=== PATIENT | female | born 1955 | race Caucasian/White ===

== ENCOUNTER 2018-01-04 07:50 | Emergency (ER) | payer OTHER, SELFPAY ==
[2018-01-04 07:53] VITALS: BP 149/98; PULSE 78; RESP 17; TEMP 37.1; O2SAT 97; BMI 31.7
--- NOTE | 2018-01-04 08:14 | EKG12_ITS ---
Test Reason : ABD PAIN Blood Pressure : / mmHG Vent. Rate : 061 BPM Atrial Rate : 061 BPM P-R Int : 154 ms QRS Dur : 142 ms QT Int : 438 ms P-R-T Axes : 044 -36 103 degrees QTc Int : 440 ms Normal sinus rhythm Left axis deviation Left bundle branch block Abnormal ECG Confirmed by CHRISTA GARCIA, AIRAM ([id number]), film or videotape editor NOEMY MANN ([id number]) on 01/05/2018 2:24:21 PM Referred By: TOM Confirmed By:AIRAM GOODWIN MD
--- NOTE | 2018-01-04 08:19 | NURSING ---
NO OLD EKGS
[2018-01-04 08:37] VITALS: BP 148/88; BP 149/96; BP 153/71; PULSE 62; PULSE 71; PULSE 72
[2018-01-04] MEDS: Ondansetron 4 MG/2 ML Vial IV (08:39)
[2018-01-04] MEDS: 0.9% Normal Saline 1,000 ML 1000 ML IV (08:39)
[2018-01-04 08:49] LABS: Absolute Lymphocyte Count 1.11 X10^3/ul (0.83-4.51); Basophil# 0.02 X10^3/uL; Basophil% 0.3 % (0-1); Eosinophil# 0.01 X10^3/uL; Eosinophils% 0.2 % (0-5); Hematocrit 42.1 % (37-47); Hemoglobin 14.5 g/dl (12.0-15.0); Lymphocyte # 1.11 X10^3/ul (4.0); Mean Corp Hgb Conc 34.4 g/gl (32-36); Mean Corpuscular Hgb 32.7 pg (27.0-32.0); Mean Corpuscular Volume 94.8 fL (81-99); Mean Platelet Vol. 10.5 fl (6.2-12.0); Monocyte# 0.42 X10^3/uL; Monocyte% 6.4 % (0-10); Neutrophil # 4.97 X10^3/uL (2.7-7.7); Neutrophil % 75.9 % (47-70); POSITIVE COUNT NO; POSITIVE DIFFERENTIAL NO; POSITIVE MORPHOLOGY NO; Platelet Count 96 K/mm3 (150-450); RBC Distribution Width CV 12.6 % (11.6-14.6); RBC Distribution Width SD 42.5 fl (35.1-43.9); Red Blood Count 4.44 M/mm3 (4.2-5.4); White Blood Count 6.5 K/mm3 (4.4-11.0)
[2018-01-04 09:13] LABS: AST(SGOT) 19 U/L (15-37); Alanine Aminotransfer ALT/SGPT 51 U/L (13-56); Albumin, Serum 3.7 g/dL (3.2-5.0); Alkaline Phosphatase 86 U/L (45-117); Anion Gap 9 (5-15); BUN 11 mg/dL (7-18); Calcium,Total 8.6 mg/dL (8.5-10.1); Chloride 108 mmol/L (98-107); Cholesterol 176 mg/dL (200); Creatinine, Serum 0.92 mg/dL (0.55-1.02); EST Glomerular Filtration Rate 65 mL/min (>60); Est Glom Filt Rate - Afr Amer 79 mL/min (>60); Estimated Creatinine Clearance 56.32 ml/min; Globulin 3.7 g/dL (2.2-4.2); Glucose 117 mg/dL (74-106); High Density Lipoprotein 51 mg/dL; Potassium 3.5 mmol/L (3.5-5.1); Protein, Total 7.4 g/dL (6.4-8.2); Sodium Level 142 mmol/L (136-145); Thyroid Stim Hormone (TSH) 0.64 uIU/mL (0.358-3.74); Triglycerides 65 mg/dL; Very Low Density Lipoprotein 13 mg/dL (5-40)
--- NOTE | 2018-01-04 09:22 | ED.DCSUM_ITS ---
- ER Visit Summary Date of Service: 01/04/18 Chief Complaint: Lightheaded and diarrhea History of Present Illness: The patient is a [address] herminia Muniz. She reports that she is lightheaded. This began at 3 AM. There is no change with standing. Patient reports she has had diarrhea 4-5 times a day since December 16. States it is orange in color. She denies any blood in her stools or black tarry stools. No sick contacts. Has not been camping or out of the country. She does drink well water, but others in the home due as well and they are not ill. No recent antibiotics. No possible bad food exposure. Patient reports that she has cramping, dull abdominal pain Zeta 10 at worst and 2 out of 10 currently. Is worsened by sleeping periods relieved by standing up. She has had nausea without vomiting. Finally she complains of headache that is 10 out of 10 severity and generalized weakness. Physical Examination: Vitals: Stable. Afebrile. General: Well-nourished and well-developed. Head: Normocephalic atraumatic. Neck: Supple, no lymphadenopathy. No JVD. Nontender. Cardiovascular: Regular rate and rhythm. No murmurs. Respiratory: No respiratory distress. Clear to auscultation bilaterally. Abdominal: Soft, mild epigastric tenderness to palpation, nondistended, normal bowel sounds. No guarding, rebound, or peritoneal signs. Back: Nontender. Extremities: Nontender, no edema. Skin: Normal color, no rash. Neurologic: Alert and oriented ?3. Cranial nerves II through XII are intact. Normal strength and sensation. Psych: Normal affect. Test Results: CBC is marked for platelets of 96, segmented neutrophils 76, lymphocytes of 17. Chem-7 is more for chloride of 108 and glucose 117. LFTs are normal. Lipase is normal. TSH is 0.64. EKG is sinus at 61 with left bundle branch block. There is no old EKG for comparison because of this a troponin was obtained and it is negative. Emergency Department Course and Treatment: Patient had negative orthostatic vital signs. She was given a liter of normal saline and Zofran. She is resting comfortably. She has had no diarrhea while here. Treatment Plan: The patient will be discharged with Zofran. Instructed to push fluids. Follow-up Dr. Miedel in 1-2 days if not improving. Return to the emergency department for any worsening symptoms. Disposition: To home in improved and stable condition. Impression: 1. Diarrhea. 2. Lightheadedness. 3. Left bundle branch block. This note was generated with [employer] dictation software. It may contain incorrect words, spelling, and punctuation that were not noted in review of the chart prior to signing ED Disposition - Plan for ED Patient: Chief Complaint: Abd Pain Instructions: ED Near Syncope Unkn, ED Vomiting Diarrhea Nonspecific Ad Prescriptions: Ondansetron [Zofran Odt] 4 mg PO Q8H PRN PRN #10 tablet PRN Reason: Nausea Ranitidine HCl [Zantac] 300 mg PO DAILY #30 tablet Referrals: Khushboo Dudley MD [Primary Care Provider] - 1-2 Days if not improving
[2018-01-04 09:31] LABS: Lipase 99 U/L (73-393)
[2018-01-04 09:51] VITALS: BP 153/76; PULSE 58; RESP 17; O2SAT 100
[2018-01-04 11:09] VITALS: BP 121/90; PULSE 80; RESP 16; O2SAT 99
== END 2018-01-04 11:11 | disposition home or self-care (01) ==
LOC: ED 08:39
PROVIDERS: Emergency Provider Emergency Medicine; Family Provider Family Medicine; PCP Family Medicine
DX: R42 Dizziness and giddiness (principal); I44.7 Left bundle-branch block, unspecified; K58.0 Irritable bowel syndrome with diarrhea; I10 Essential (primary) hypertension; E03.9 Hypothyroidism, unspecified; M79.7 Fibromyalgia; Z79.899 Other long term (current) drug therapy
CPT/HCPCS: 80053; 80061; 83690; 84443; 84484; 85025; 93005; 96361; 96374; 99285; J7030; A4216; J2405

== ENCOUNTER → 2018-01-10 14:12 | Outpatient (CLI) | payer OTHER, SELFPAY ==
--- NOTE | 2018-01-10 14:16 | CT_ITS ---
STUDY: CT ABDOMEN AND PELVIS WITH CONTRAST REASON FOR EXAM: Female, 62 years old. Abdominal pain and spasms. Prior history of cholecystectomy and DIONE/BSO. RADIATION DOSAGE (If Supplied By Facility): CTDIvol = ( 16.35 ) mGy, DLP = ( 1000.59 ) mGycm TECHNIQUE: Transaxial images were obtained from the dome of the diaphragm to the symphysis pubis with oral contrast. 100 ml of Isovue 300 contrast was administered. Sagittal and coronal images were reconstructed. Individualized dose optimization techniques were used for this CT. COMPARISON: None. FINDINGS: 8 x 5 mm noncalcified nodule of the right lower lobe, image 8 series 2. 2 mm nodule of the right middle lobe, image 8 series 2. Trace pericardial effusion. Normal liver. There are surgical clips in the gallbladder fossa consistent with a prior cholecystectomy. Normal spleen. Normal pancreas. Normal bilateral adrenal glands. Normal right kidney. Normal left kidney. Normal visualized stomach. Normal small intestine. Diverticulosis of the colon without evidence of acute diverticulitis. The appendix is visualized and appears normal. Minimal calcified plaque of the aorta. Normal inferior vena cava. Normal retroperitoneum. Normal urinary bladder. There is absence of the uterus consistent with a prior hysterectomy. Negative for pelvic mass or free fluid of the pelvis. Normal abdominal wall. Normal osseous structures. CT/Abdomen/Pelvis WITH Contrast IMPRESSION: No acute bowel related findings. Negative for bowel perforation, obstruction or inflammatory changes. Diverticulosis without evidence of acute diverticulitis. A normal appendix is identified. Normal size of the kidneys bilaterally without hydronephrosis, renal, ureteral or bladder stones. Unremarkable urinary bladder. Status post hysterectomy. Negative for pelvic mass or free fluid. Status post cholecystectomy. 8 x 5 mm noncalcified nodule of the right lower lobe and a 2 mm nodule of the right middle lobe. Recommended follow-up for nodules 8 to 6 mm in size is 6-12 months and 18-24 months in a low risk patient. 3-6 months, 9-12 months and 24 months in a high risk patient. Electronically Signed: Angelica Bernal MD at 15:51 EDT , Service support ,
== END ==
PROVIDERS: Family Provider Family Medicine; PCP Family Medicine; Visit Provider Family Medicine
DX: K58.0 Irritable bowel syndrome with diarrhea (principal); R10.9 Unspecified abdominal pain; G89.29 Other chronic pain
CPT/HCPCS: 74177; Q9967

== ENCOUNTER 2018-03-21 06:43 | Day surgery (SDC) | payer OTHER, SELFPAY ==
--- NOTE | 2018-03-21 | EGD_PTH ---
PATIENT: GUMARO CARRASQUILLO LOC: EN U#:[id number] AGE/SX: 63/F ROOM: RE03/21/[address]: Dr. Cristino Mcintyre MD : [id number] BED: DIS: 03/21/2018 SPEC #: [id number] RECD: 03/21/18 12:01 STATUS: SHINE AIDEN #: [id number] BLANKA: 03/21/18 00:[address]: Cristino Mcintyre DEPT: SURGICAL PATHOLOGY RECD BY: Jordan Howard ENTERED: 03/22/18 12:01 SP TYPE: EGD BIOPSY OT DR: Dr. Khushboo Dudley MD Tissues: Small intestine biopsy Procedures: Surgery Specimen Level IV HEADER OPERATION: EGD with biopsy PRE-OP DIAGNOSIS: Epigastric abdomen pain, nausea TISSUE SUBMITTED: Small bowel biopsy MICROSCOPIC DIAGNOSIS Small bowel, biopsy: Fragment of duodenal mucosa with mild nonspecific chronic inflammation and Lucrecia gland hyperplasia. SJ:mattie 03/24/18 MICROSCOPIC DESCRIPTION Slides are reviewed. GROSS DESCRIPTION Received in fixative is one container labeled with the patient's name and designated small bowel biopsy. The specimen consists of a fragment of hennessy soft tissue measuring 0.4 x 0.4 x 0.1 cm. The specimen is totally submitted in one cassette. / SULAIMAN:mattie 03/22/18 TC:5 CPT: 21337
--- NOTE | 2018-03-21 06:43 | DT_ITS ---
This patient was seen during an EMR downtime March 19, 2018 - March 26, 2018. This patient may have a combination of paper and electronic documentation or all paper documentation. All documentation is viewable within the e-chart portion of [employer] for each patient visit.
--- NOTE | 2018-03-21 11:52 | EKG12_ITS ---
Test Reason : POSTOP Blood Pressure : / mmHG Vent. Rate : 050 BPM Atrial Rate : 050 BPM P-R Int : 164 ms QRS Dur : 094 ms QT Int : 442 ms P-R-T Axes : 039 020 030 degrees QTc Int : [address] abnormality, possible digitalis effect Abnormal ECG When compared with ECG of 04-JAN-2018 08:26, Left bundle branch block is no longer Present Confirmed by CHRISTA GARCIA, AIRAM ([id number]), sound editor NOEMY MANN ([id number]) on 03/29/2018 4:38:05 PM Referred By: Cristino Mcintyre Confirmed By:AIRAM GOODWIN MD
== END 2018-03-21 09:10 | disposition home or self-care (01) ==
PROVIDERS: Family Provider Family Medicine; PCP Family Medicine; Visit Provider Surgery
PROC: 0DJ08ZZ Inspection of Upper Intestinal Tract, Via Natural or Artificial Opening Endoscopic (ICD-10-PCS; CPT 43235; principal; 2018-03-21 07:55)
DX: R10.13 Epigastric pain (principal); R11.0 Nausea; Z79.899 Other long term (current) drug therapy; I10 Essential (primary) hypertension; I44.7 Left bundle-branch block, unspecified; Z87.891 Personal history of nicotine dependence; G25.81 Restless legs syndrome; K58.9 Irritable bowel syndrome, unspecified; E07.9 Disorder of thyroid, unspecified; M79.7 Fibromyalgia; E03.9 Hypothyroidism, unspecified
CPT/HCPCS: 43239; 88305; 93005; J7120

== ENCOUNTER → 2018-05-18 09:27 | Outpatient (CLI) | payer OTHER, SELFPAY ==
[2018-05-18 12:17] LABS: Absolute Neutrophil Count 2.5 X10^3/uL (2.0-7.7); Basophil# 0.01 X10^3/uL; Basophil% 0.2 % (0-1); Eosinophil# 0.04 X10^3/uL; Eosinophils% 0.9 % (0-5); Hematocrit 39.6 % (37-47); Hemoglobin 12.9 g/dl (12.0-15.0); Mean Corp Hgb Conc 32.6 g/gl (32-36); Mean Corpuscular Hgb 31.8 pg (27.0-32.0); Mean Corpuscular Volume 97.5 fL (81-99); Mean Platelet Vol. 10.6 fl (6.2-12.0); Monocyte# 0.32 X10^3/uL; Monocyte% 7.5 % (0-10); Neutrophil # 2.47 X10^3/uL (2.7-7.7); Neutrophil % 58.4 % (47-70); Platelet Count 120 K/mm3 (150-450); RBC Distribution Width CV 12.7 % (11.6-14.6); RBC Distribution Width SD 45.7 fl (35.1-43.9); Red Blood Count 4.06 M/mm3 (4.2-5.4); White Blood Count 4.2 K/mm3 (4.4-11.0)
[2018-05-18 12:20] LABS: International Normalized Ratio 1.1; Prothrombin Time (Protime)PT. 13.8 SECONDS (11.7-14.9)
[2018-05-18 12:21] LABS: Partial Thromboplast Time 29.2 Seconds (24.1-36.2)
[2018-05-18 12:23] LABS: AST(SGOT) 19 U/L (15-37); Alanine Aminotransfer ALT/SGPT 25 U/L (13-56); Albumin, Serum 3.6 g/dL (3.2-5.0); Alkaline Phosphatase 81 U/L (45-117); Bilirubin, Direct 0.09 mg/dL (0.00-0.30); Globulin 3.9 g/dL (2.2-4.2); Protein, Total 7.5 g/dL (6.4-8.2)
[2018-05-18 12:24] LABS: POSITIVE COUNT NO; POSITIVE DIFFERENTIAL NO
[2018-05-18 12:25] LABS: Vitamin B12 346 pg/mL (211-911)
[2018-05-18 12:25] LABS: POSITIVE MORPHOLOGY NO
== END ==
PROVIDERS: Family Provider Family Medicine; PCP Family Medicine; Visit Provider Family Medicine
DX: R10.13 Epigastric pain (principal); T14.8XXA Other injury of unspecified body region, initial encounter
CPT/HCPCS: 36415; 80076; 82607; 85025; 85610; 85730

== ENCOUNTER → 2018-12-19 08:05 | Outpatient (CLI) | payer OTHER, SELFPAY ==
[2018-12-19 12:20] LABS: Absolute Lymphocyte Count 1.71 X10^3/ul (0.83-4.51); Absolute Neutrophil Count 3.4 X10^3/uL (2.0-7.7); Basophil# 0.02 X10^3/uL; Basophil% 0.3 % (0-1); Eosinophil# 0.09 X10^3/uL; Eosinophils% 1.6 % (0-5); Hematocrit 40.5 % (37-47); Hemoglobin 13.1 g/dl (12.0-15.0); Lymphocyte # 1.71 X10^3/ul (4.0); Lymphocyte % 29.5 % (19-41); Mean Corp Hgb Conc 32.3 g/gl (32-36); Mean Corpuscular Hgb 31.8 pg (27.0-32.0); Mean Corpuscular Volume 98.3 fL (81-99); Mean Platelet Vol. 10.8 fl (6.2-12.0); Monocyte% 10.4 % (0-10); Neutrophil # 3.37 X10^3/uL (2.7-7.7); Neutrophil % 58.2 % (47-70); Platelet Count 125 K/mm3 (150-450); RBC Distribution Width CV 13.1 % (11.6-14.6); RBC Distribution Width SD 47.1 fl (35.1-43.9); Red Blood Count 4.12 M/mm3 (4.2-5.4); White Blood Count 5.8 K/mm3 (4.4-11.0)
[2018-12-19 12:29] LABS: POSITIVE COUNT NO; POSITIVE DIFFERENTIAL NO; POSITIVE MORPHOLOGY NO
[2018-12-19 12:46] LABS: ALB/GLOB Ratio 0.9 RATIO (0.9-2.4); AST(SGOT) 19 U/L (15-37); Alanine Aminotransfer ALT/SGPT 23 U/L (13-56); Albumin, Serum 3.7 g/dL (3.2-5.0); Alkaline Phosphatase 78 U/L (45-117); Anion Gap 8 (5-15); BUN 16 mg/dL (7-18); Calcium,Total 8.4 mg/dL (8.5-10.1); Chloride 108 mmol/L (98-107); Cholesterol 179 mg/dL (200); Creatinine, Serum 0.84 mg/dL (0.55-1.02); EST Glomerular Filtration Rate 72 mL/min (>60); Est Glom Filt Rate - Afr Amer 88 mL/min (>60); Glucose 89 mg/dL (74-106); High Density Lipoprotein 63 mg/dL; Potassium 4.2 mmol/L (3.5-5.1); Protein, Total 7.7 g/dL (6.4-8.2); Sodium Level 144 mmol/L (136-145); Thyroid Stim Hormone (TSH) 1.86 uIU/mL (0.358-3.74); Triglycerides 46 mg/dL; Very Low Density Lipoprotein 9 mg/dL (5-40)
== END ==
PROVIDERS: Family Provider Family Medicine; PCP Family Medicine; Visit Provider Family Medicine
DX: I10 Essential (primary) hypertension (principal); K21.9 Gastro-esophageal reflux disease without esophagitis; E03.9 Hypothyroidism, unspecified; K58.0 Irritable bowel syndrome with diarrhea
CPT/HCPCS: 36415; 80053; 80061; 84443; 85025

== ENCOUNTER 2019-03-12 08:00 | Outpatient (RCR) | payer MEDICARE, OTHER, SELFPAY ==
--- NOTE | 2019-02-11 11:33 | HP.PTEVAL_ITS ---
Patient's Visit Information GUMARO CARRASQUILLO is a 64 year old F referred to Physical Therapy by Khushboo Dudley MD with a diagnosis of L RTC tendonopathy. Date of Evaluation: 02/11/19 Physical Therapist: Wade Nicholas DPT - Visit Plan Frequency: 2x /Week Duration: 4 Weeks Plan: Start with PROM progressing to AAROM as tolerated. Add in shoulder stability exercises and light RTC strengthening in pain free ranges. May add in US to reduce symptoms. - Subjective Findings: Pt. is here today for her initial evaluation with diagnosis of L RTC tendonopathy. Pt. reports no mechanism of injury, but has been bothering her for 5 weeks. Pt. reports having increased difficulty with sleeping, lifting her L arm. Pt. has a history of R RTC repair. Pt. denies N/T. She does have pain at anterior shoulder that goes down her L arm at times. Pt. - Pain L shoulder Pain Intensity (Out of 10): 2 Pain Intensity Range: 2, 8 - Objective POSTURE: Pt. has normal posture in sitting and standing. Pt. tends to keep her L arm in guarded posture. PALPATION: Pt. has increased tenderness at subacromial space at posterior aspect. Pt. has increased pain with palpation at supraspintus and infraspinatus muscle bellies. NEURO: Normal throuhgout. ROM: L shoulder- AROM- flexion 88deg, abd 68deg, functional IR PSIS. PT. has increas ed pain limited all of her motions with in this region. PROM- L shoujlder- flexion 130deg, abd 108deg, ER at side 36deg. Pt. had empty end feel with all movements limiting further motion. MMT: - Special Tests L Shoulder External Rotation Lag Test - RC Tear: Negative L Shoulder Supine Impingement Test - RC Tear: Negative L Shoulder Lift Off Test - Subscapular Tear: Positive L Shoulder Drop Sign - IS Test: Negative L Shoulder Empty Can - SS: Positive L Shoulder Belly Press - SupScap: Positive L Shoulder Neer - Impingement: Positive L Shoulder Camacho Pee - Impingement: Positive - Goals Goal 1:: Pt. to be I with HEP. Goal Time Frame: 4-6 Weeks Goal 2:: Pt. to have full AROM of L shoulder with 0-2/10 pain allowing for icnreased tolerance to all ADls. Goal Time Frame: 4-6 Weeks Goal 3:: Pt. to sleep throughout the night without increase in symptoms. Goal Time Frame: 4-6 Weeks Goal 4:: Pt. to have increased strength of L shoulder and scapular musculature by 1/2 grade. 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 Goal Time Frame: 4-6 Weeks - Rehabilitation Potential Physical Therapy Diagnosis: Pt. has signs and symptoms consistent with L RTC pathology. After testing her today, I feel she has a contractile issue of her RTC suggestive of a subscapularis tear. I would suggest some ROM and stability exercises in attempt to increase tolerance to ADLs and decrease symptoms in conservative fashion. Rehabilitation Potential: Fair - Anticipated Interventions Patient/Client Instruction: Educate patient on: Condition, Risk Factors, Benefits of Fitness Program For the Purpose of:: To foster healthy habits, To improve decision making, To facilitate caregiver knowledge, To improve self management, To prevent re- injury, To improve ability to perform tasks related to life management, To improve tolerance to ADL's Therapeutic Exercise to Include: Strength training, Power training, Body mechanics, Postural training, Flexibilty training, Passive ROM, Active ROM, Scapular Strength/Stabilization For the Purpose of:: To decrease pain, To increase ROM, To improve nutrient delivery to tissue, To increase oxygenation perfusion, To improve muscle performance and motor function, To improve ability to perform ADL's, To improve health of tissue, To decrease soft tissue restriction, To increase flexibility/ROM Manual Therapy Techniques to Include: Mobilization, Passive ROM, Functional dry needling, Soft tissue mobilization For the Purpose of:: To increase ROM, To improve nutrient delivery to tissue, To increase oxygenation perfusion Cryotherapy (ice pack, ice massage): Yes Thermo therapy (hot pack): Yes Ultrasound (thermal/non thermal): Yes For the Purpose of:: To decrease pain, To decrease swelling/inflammation, To increase ROM Thank you for the opportunity to evaluate your patient. For Medicare and Medicare HMO plans, please review the plan of care and approve it. It will need to be FAXED BACK to us at [phone] for Medicare purposes. For Medicare only, by signing this I certify the plan of care. Please let me know if there are questions or concerns regarding this plan of care. Physician Signature: Date:
--- NOTE | 2019-02-11 12:22 | HP.PTEVAL ---
Patient's Visit Information GUMARO CARRASQUILLO is a 64 year old F referred to Physical Therapy by Khushboo Dudley MD with a diagnosis of L RTC tendonopathy. Date of Evaluation: 02/11/19 Physical Therapist: Wade Nicholas DPT - Visit Plan Frequency: 2x /Week Duration: 4 Weeks Plan: Start with PROM progressing to AAROM as tolerated. Add in shoulder stability exercises and light RTC strengthening in pain free ranges. May add in US to reduce symptoms. - Subjective Findings: Pt. is here today for her initial evaluation with diagnosis of L RTC tendonopathy. Pt. reports no mechanism of injury, but has been bothering her for 5 weeks. Pt. reports having increased difficulty with sleeping, lifting her L arm. Pt. has a history of R RTC repair. Pt. denies N/T. She does have pain at anterior shoulder that goes down her L arm at times. Pt. - Pain L shoulder Pain Intensity (Out of 10): 2 Pain Intensity Range: 2, 8 - Objective POSTURE: Pt. has normal posture in sitting and standing. Pt. tends to keep her L arm in guarded posture. PALPATION: Pt. has increased tenderness at subacromial space at posterior aspect. Pt. has increased pain with palpation at supraspintus and infraspinatus muscle bellies. NEURO: Normal throuhgout. ROM: L shoulder- AROM- flexion 88deg, abd 68deg, functional IR PSIS. PT. has increased pain limited all of her motions with in this region. PROM- L shoujlder- flexion 130deg, abd 108deg, ER at side 36deg. Pt. had empty end feel with all movements limiting further motion. MMT: - Special Tests L Shoulder External Rotation Lag Test - RC Tear: Negative L Shoulder Supine Impingement Test - RC Tear: Negative L Shoulder Lift Off Test - Subscapular Tear: Positive L Shoulder Drop Sign - IS Test: Negative L Shoulder Empty Can - SS: Positive L Shoulder Belly Press - SupScap: Positive L Shoulder Neer - Impingement: Positive L Shoulder Camacho Pee - Impingement: Positive - Goals Goal 1:: Pt. to be I with HEP. Goal Time Frame: 4-6 Weeks Goal 2:: Pt. to have full AROM of L shoulder with 0-2/10 pain allowing for icnreased tolerance to all ADls. Goal Time Frame: 4-6 Weeks Goal 3:: Pt. to sleep throughout the night without increase in symptoms. Goal Time Frame: 4-6 Weeks Goal 4:: Pt. to have increased strength of L shoulder and scapular musculature by 1/2 grade. 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 Goal Time Frame: 4-6 Weeks - Rehabilitation Potential Physical Therapy Diagnosis: Pt. has signs and symptoms consistent with L RTC pathology. After testing her today, I feel she has a contractile issue of her RTC suggestive of a subscapularis tear. I would suggest some ROM and stability exercises in attempt to increase tolerance to ADLs and decrease symptoms in conservative fashion. Rehabilitation Potential: Fair - Anticipated Interventions Patient/Client Instruction: Educate patient on: Condition, Risk Factors, Benefits of Fitness Program For the Purpose of:: To foster healthy habits, To improve decision making, To facilitate caregiver knowledge, To improve self management, To prevent re-injury, To improve ability to perform tasks related to life management, To improve tolerance to ADL's Therapeutic Exercise to Include: Strength training, Power training, Body mechanics, Postural training, Flexibilty training, Passive ROM, Active ROM, Scapular Strength/Stabilization For the Purpose of:: To decrease pain, To increase ROM, To improve nutrient delivery to tissue, To increase oxygenation perfusion, To improve muscle performance and motor function, To improve ability to perform ADL's, To improve health of tissue, To decrease soft tissue restriction, To increase flexibility/ROM Manual Therapy Techniques to Include: Mobilization, Passive ROM, Functional dry needling, Soft tissue mobilization For the Purpose of:: To increase ROM, To improve nutrient delivery to tissue, To increase oxygenation perfusion Cryotherapy (ice pack, ice massage): Yes Thermo therapy (hot pack): Yes Ultrasound (thermal/non thermal): Yes For the Purpose of:: To decrease pain, To decrease swelling/inflammation, To increase ROM Thank you for the opportunity to evaluate your patient. For Medicare and Medicare HMO plans, please review the plan of care and approve it. It will need to be FAXED BACK to us at [phone] for Medicare purposes. For Medicare only, by signing this I certify the plan of care. Please let me know if there are questions or concerns regarding this plan of care. Physician Signature: Date:
--- NOTE | 2019-06-19 10:04 | HP.PTDCNRP_ITS ---
HP - Discharge Summary (1) - Patient Information GUMARO CARRASQUILLO was seen in my office for initial evaluation on 02/11/19. The following Plan of Care was established for this patient: Initial Frequency: 2x /Week Initial Duration: 4 Weeks - Anticipated Interventions Patient/Client Instruction: Educate patient on: Condition, Risk Factors, Benefits of Fitness Program For the Purpose of:: To foster healthy habits, To improve decision making, To facilitate caregiver knowledge, To improve self management, To prevent re- injury, To improve ability to perform tasks related to life management, To improve tolerance to ADL's Therapeutic Exercise to Include: Strength training, Power training, Body mechanics, Postural training, Flexibilty training, Passive ROM, Active ROM, Scapular Strength/Stabilization For the Purpose of:: To decrease pain, To increase ROM, To improve nutrient delivery to tissue, To increase oxygenation perfusion, To improve muscle performance and motor function, To improve ability to perform ADL's, To improve health of tissue, To decrease soft tissue restriction, To increase flexibility/ROM Manual Therapy Techniques to Include: Mobilization, Passive ROM, Functional dry needling, Soft tissue mobilization For the Purpose of:: To increase ROM, To improve nutrient delivery to tissue, To increase oxygenation perfusion Cryotherapy (ice pack, ice massage): Yes Thermo therapy (hot pack): Yes Ultrasound (thermal/non thermal): Yes For the Purpose of:: To decrease pain, To decrease swelling/inflammation, To increase ROM This patient was last seen in our office 03/12/19. Pertinent comments regarding their Physical therapy will appear below: Pt. was seen for her RTC pathology. Pt. presented with tear like symptoms, but desired to continue with ROM and isometric exercises. Pt. was to follow up with physican after her last visit. Pt has not been seen in several months and will be DC from PT at this point intime. At this point I will be discontinuing this patient from physical therapy. I would be happy to see this patient again in the future if found appropriate by the physician. Thank you! Wade Nicholas, BRIAN
== END 2019-03-12 19:00 | disposition home or self-care (01) ==
LOC: PT 08:00
PROVIDERS: Family Provider Family Medicine; PCP Family Medicine; Referring Provider Family Medicine; Visit Provider Family Medicine
DX: M75.102 Unspecified rotator cuff tear or rupture of left shoulder, not specified as traumatic (principal)
CPT/HCPCS: 97110; 97161

== ENCOUNTER → 2019-04-30 | Outpatient (CLI) | payer MEDICARE, OTHER, SELFPAY ==
[2019-04-30 16:04] LABS: Estradiol 11.8 pg/mL
[2019-05-02 11:47] LABS: Sex Hormone-binding Globulin 97.9 nmol/L (17.3-125.0)
[2019-05-06 14:52] LABS: Progesterone Level 0.07 ng/mL (See Comment)
== END | disposition home or self-care (01) ==
LOC: LABSPEC 14:01
PROVIDERS: Visit Provider Obstetrics & Gynecology
DX: N95.1 Menopausal and female climacteric states (principal); Z12.4 Encounter for screening for malignant neoplasm of cervix
CPT/HCPCS: 82670; 84144; 84270; 84403; 88175; G0145

== ENCOUNTER → 2019-06-05 | Outpatient (CLI) | payer MEDICARE, OTHER, SELFPAY ==
--- NOTE | 2019-06-05 09:40 | BI_ITS ---
MAMMOGRAPHY - BILATERAL SCREENING 3-D TOMOSYNTHESIS REASON FOR EXAM: Female, 64 years old. Bilateral Screening 3-D tomosynthesis PERTINENT HISTORY: No significant family history. TECHNIQUE: 2-D mammograms and 3-D Tomosynthesis of the breast (s) were performed. CAD was performed. COMPARISON: 06/17/2014 FINDINGS: The breast composition is composed of scattered fibroglandular density. Unremarkable benign-appearing fibroglandular tissue.. No dense spiculated masses or suspicious microcalcifications are identified. No architectural distortion is identified. There is no skin thickening or retraction. There has been no significant change since the prior study. BI/SCREEN MAMM (CAD) W/BILLY BILAT IMPRESSION: No mammographic signs of malignancy. Routine yearly mammograms recommended. ASSESSMENT CATEGORY: BIRADS Category 1: Negative. A letter regarding these results will be sent to the patient by the facility within 30 days. FOLLOW UP RECOMMENDATION: Yearly follow up mammogram recommended. (A) Approximately 10% of breast cancers are not detected by mammography. A normal mammogram should not delay biopsy of a clinically suspicious abnormality. Electronically Signed: Chilo Negron MD at 16:10 EDT Tel [phone], Service support ,
--- NOTE | 2019-06-05 09:44 | BD_ITS ---
STUDY: DUAL ENERGY X-RAY ABSORPTIOMETRY / DXA REASON FOR EXAM: Female, 64 years old. The patient is postmenopausal. Loss of height. TECHNIQUE: Bone Mineral Density (BMD) measurements of lumbar spine and bilateral hips were obtained. COMPARISON: None. FINDINGS: Lumbar Spine (L1-L4): g/cm2 (1.260) / T-score (0.8) / Z-score (2.4) Findings are suggestive of normal bone density with a low fracture risk. Left Femur Total: g/cm2 (0.977) / T-score (-0.2) / Z-score (1.0) Left Femoral Neck: g/cm2 (0.899) / T-score (-1.0) / Z-score (0.5) Right Femur Total: g/cm2 (0.985) / T-score (-0.2) / Z-score (1.0) Right Femoral Neck: g/cm2 (0.967) / T-score (-0.5) / Z-score (1.0) BD/Dexa Bone Density Study IMPRESSION: The patient is considered normal as outlined below according to World [place] Organization (WHO) criteria with a low fracture risk. Reference Information: The T-score is the number of standard deviations above or below the standard which is normal for young adults at their peak bone mineral density. The World Health Organization (WHO) interprets the T-scores as follows: Above -1 Normal bone density Between -1 and -2.5 Osteopenia Equal to / or below -2.5 Osteoporosis As a practical clinical guideline, osteopenia may be graded as follows: Mild -1 through -1.5 Moderate -1.6 through -2.0 Severe -2.1 through -2.4 The Z-score is the number of standard deviations above or below age-matched controls. A Z-score of less than -1.5 would be considered abnormal. References: 1. NIH Osteoporosis and Related Bone Diseases http://www.osteo.org 2. International Society for Clinical Densitometry http://www.iscd.org 3. National Osteoporosis Foundation http://www.nof.org Electronically Signed: Armin Kelly, at 10:06 EDT , Service support ,
== END | disposition home or self-care (01) ==
LOC: OPBD 09:38
PROVIDERS: Family Provider Family Medicine; PCP Family Medicine; Referring Provider Obstetrics & Gynecology; Visit Provider Obstetrics & Gynecology
DX: Z78.0 Asymptomatic menopausal state (principal); Z12.31 Encounter for screening mammogram for malignant neoplasm of breast; N95.1 Menopausal and female climacteric states
CPT/HCPCS: 77063; 77067; 77080

== ENCOUNTER → 2019-07-08 | Outpatient (CLI) | payer MEDICARE, OTHER, SELFPAY ==
[2019-07-11 14:58] LABS: HPV APTIMA, High Risk Negative (Negative)
== END | disposition home or self-care (01) ==
LOC: LABSPEC 15:15
PROVIDERS: Visit Provider Obstetrics & Gynecology
DX: Z12.4 Encounter for screening for malignant neoplasm of cervix (principal)
CPT/HCPCS: 87624; 88175; G0145

== ENCOUNTER → 2019-11-19 | Outpatient (CLI) | payer MEDICARE, OTHER, SELFPAY ==
[2019-11-19 12:51] LABS: Absolute Lymphocyte Count 1.56 X10^3/uL (0.83-4.51); Absolute Neutrophil Count 2.7 X10^3/uL (2.0-7.7); Basophil# 0.02 X10^3/uL; Basophil% 0.4 % (0-1); Eosinophil# 0.08 X10^3/uL; Eosinophils% 1.6 % (0-5); Hematocrit 41.1 % (37-47); Hemoglobin 13.3 g/dL (12.0-15.0); Lymphocyte # 1.56 X10^3/ul (4.0); Lymphocyte % 31.8 % (19-41); Mean Corp Hgb Conc 32.4 g/dL (32-36); Mean Corpuscular Hgb 31.8 pg (27.0-32.0); Mean Corpuscular Volume 98.3 fL (81-99); Mean Platelet Vol. 10.2 fl (6.2-12.0); Monocyte# 0.49 X10^3/uL; NRBC Flagged by Analyzer 0 % (0-5); Neutrophil # 2.74 X10^3/uL (2.7-7.7); Platelet Count 123 K/mm3 (150-450); RBC Distribution Width CV 12.6 % (11.6-14.6); RBC Distribution Width SD 45.1 fl (35.1-43.9); Red Blood Count 4.18 M/mm3 (4.2-5.4); White Blood Count 4.9 K/mm3 (4.4-11.0)
[2019-11-19 13:09] LABS: ALB/GLOB Ratio 0.8 RATIO (0.9-2.4); AST(SGOT) 16 U/L (15-37); Alanine Aminotransfer ALT/SGPT 23 U/L (13-56); Albumin, Serum 3.4 g/dL (3.2-5.0); Alkaline Phosphatase 76 U/L (45-117); Anion Gap 5 (5-15); BUN 14 mg/dL (7-18); BUN/Creat Ratio 14.7 RATIO (10-20); Calcium,Total 8.8 mg/dL (8.5-10.1); Chloride 110 mmol/L (98-107); Cholesterol 180 mg/dL (200); Creatinine, Serum 0.95 mg/dL (0.55-1.02); EST Glomerular Filtration Rate 63 mL/min (>60); Est Glom Filt Rate - Afr Amer 76 mL/min (>60); Globulin 4.2 g/dL (2.2-4.2); Glucose 89 mg/dL (74-106); High Density Lipoprotein 62 mg/dL; Potassium 4.1 mmol/L (3.5-5.1); Protein, Total 7.6 g/dL (6.4-8.2); Sodium Level 143 mmol/L (136-145); Triglycerides 38 mg/dL; Very Low Density Lipoprotein 8 mg/dL (5-40)
== END | disposition home or self-care (01) ==
LOC: BFHLAB 08:08
PROVIDERS: PCP Family Medicine; Visit Provider Family Medicine
DX: I10 Essential (primary) hypertension (principal); E03.9 Hypothyroidism, unspecified
CPT/HCPCS: 36415; 80053; 80061; 84443; 85025

== ENCOUNTER → 2020-12-29 11:45 | Outpatient (CLI) | payer MEDICARE, OTHER, SELFPAY ==
[2020-12-29 15:30] LABS: Absolute Lymphocyte Count 1.43 X10^3/uL (0.83-4.51); Absolute Neutrophil Count 3.7 X10^3/uL (2.0-7.7); Basophil# 0.03 X10^3/uL; Basophil% 0.5 % (0-1); Eosinophil# 0.08 X10^3/uL; Eosinophils% 1.4 % (0-5); Hematocrit 39.9 % (37-47); Hemoglobin 13.1 g/dL (12.0-15.0); Lymphocyte # 1.43 X10^3/ul (4.0); Lymphocyte % 24.5 % (19-41); Mean Corp Hgb Conc 32.8 g/dL (32-36); Mean Corpuscular Hgb 31.5 pg (27.0-32.0); Mean Corpuscular Volume 95.9 fL (81-99); Mean Platelet Vol. 10.3 fl (6.2-12.0); Monocyte# 0.54 X10^3/uL; Monocyte% 9.3 % (0-10); NRBC Flagged by Analyzer 0 % (0-5); Neutrophil # 3.73 X10^3/uL (2.7-7.7); Platelet Count 140 K/mm3 (150-450); RBC Distribution Width CV 12.5 % (11.6-14.6); RBC Distribution Width SD 44.2 fl (35.1-43.9); Red Blood Count 4.16 M/mm3 (4.2-5.4); White Blood Count 5.8 K/mm3 (4.4-11.0)
[2020-12-29 16:05] LABS: ALB/GLOB Ratio 0.8 RATIO (0.9-2.4); AST(SGOT) 19 U/L (15-37); Alanine Aminotransfer ALT/SGPT 23 U/L (13-56); Albumin, Serum 3.4 g/dL (3.2-5.0); Alkaline Phosphatase 85 U/L (45-117); Anion Gap 4 (5-15); BUN 15 mg/dL (7-18); BUN/Creat Ratio 17.3 RATIO (10-20); Calcium,Total 8.7 mg/dL (8.5-10.1); Chloride 107 mmol/L (98-107); Creatinine, Serum 0.87 mg/dL (0.55-1.02); EST Glomerular Filtration Rate 69 mL/min (>60); Est Glom Filt Rate - Afr Amer 84 mL/min (>60); Globulin 4.1 g/dL (2.2-4.2); Glucose 98 mg/dL (74-106); Potassium 3.9 mmol/L (3.5-5.1); Protein, Total 7.5 g/dL (6.4-8.2); Sodium Level 140 mmol/L (136-145); Thyroid Stim Hormone (TSH) 1.14 uIU/mL (0.358-3.74)
== END ==
PROVIDERS: PCP Family Medicine; Referring Provider Family Medicine; Visit Provider Family Medicine
DX: I10 Essential (primary) hypertension (principal); E03.9 Hypothyroidism, unspecified
CPT/HCPCS: 36415; 80053; 84443; 85025

== ENCOUNTER → 2021-06-28 12:07 | Outpatient (CLI) | payer MEDICARE, OTHER, SELFPAY ==
--- NOTE | 2021-06-28 12:11 | BI_ITS ---
MAMMOGRAPHY - BILATERAL SCREENING REASON FOR EXAM: Female, 66 years old. Routine annual screening examination. PERTINENT HISTORY: Non-contributory. TECHNIQUE: Digital bilateral breast billy (3D mammographic acquisition) in the CC and MLO projections. 2-D mediolateral oblique (MLO) and craniocaudad (CC) views of both breasts were obtained. CAD: Full Field Digital Mammography with Computer Added Detection was performed. COMPARISON: Comparison is made with prior study 06/05/2019 and 06/17/2014. FINDINGS: Breast Composition: There are scattered areas of fibroglandular density. There are no dominant masses or suspicious calcifications. Stable benign-appearing bilateral axillary. No other significant abnormalities are identified. There has been no significant change since the prior study. BI/SCRN MAMM (CAD)W/BILLY BILAT IMPRESSION: Stable bilateral screening mammogram. Yearly follow-up mammogram recommended. (A) ASSESSMENT CATEGORY: BIRADS Category 2: Benign. A letter regarding these results will be sent to the patient by the facility within 30 days. Approximately 10% of breast cancers are not detected by mammography. A normal mammogram should not delay biopsy of a clinically suspicious abnormality. [id number] Electronically Signed: Armin Kelly MD at 13:08 EDT , Service support ,
== END ==
PROVIDERS: PCP Family Medicine; Referring Provider Family Medicine; Visit Provider Family Medicine
DX: Z12.31 Encounter for screening mammogram for malignant neoplasm of breast (principal)
CPT/HCPCS: 77063; 77067

== ENCOUNTER 2021-08-09 10:31 | Observation (INO) | payer MEDICARE, OTHER, SELFPAY ==
--- NOTE | 2021-08-04 08:38 | EKG12_ITS ---
Test Reason : PREOP Blood Pressure : / mmHG Vent. Rate : 056 BPM Atrial Rate : 056 BPM P-R Int : 198 ms QRS Dur : 086 ms QT Int : 418 ms P-R-T Axes : 057 009 016 degrees QTc Int : 403 ms Sinus bradycardia Otherwise normal ECG Confirmed by CHRISTA GARCIA, AIRAM ([id number]), slot editor ANTHONY HADLEY ([id number]) on 08/05/2021 7:46:54 AM Referred By: Anabelle Shultz Confirmed By:AIRAM GOODWIN MD
[2021-08-04 09:24] LABS: Hematocrit 39.7 % (37-47); Mean Corp Hgb Conc 32.7 g/dL (32-36); Mean Corpuscular Volume 97.8 fL (81-99); Platelet Count 133 K/mm3 (150-450); RBC Distribution Width CV 12.5 % (11.6-14.6); Red Blood Count 4.06 M/mm3 (4.2-5.4); White Blood Count 5.2 K/mm3 (4.4-11.0)
[2021-08-04 09:59] LABS: Thyroid Stim Hormone (TSH) 1.32 uIU/mL (0.358-3.74)
[2021-08-09] VITALS (12 sets, daily range): BP systolic 132–161; BP diastolic 63–86; PULSE 53–68; RESP 16–18; TEMP 36.1–37.1; O2SAT 94–100; BMI 38.2
[2021-08-09] MEDS: Lactated Ringers 1,000 ML 100 ML IV (10:05)
--- NOTE | 2021-08-09 10:29 | OP.PCM_ITS ---
Problems Associated Problem List Diagnoses (1) Cystocele, midline: (2) Vaginal vault prolapse: Report of Operation Date of Procedure: 08/09/21 Pre-Operative Diagnosis: Cystocele, vaginal vault prolapse after hysterectomy Post-Operative Diagnosis: Same, rectocele, vulvar discoloration Surgery/Procedure Performed:: Anterior and posterior repair, bilateral sacrospinous ligament fixation with dermis, cystoscopy with bilateral ureteral catheterization, vulvar punch biopsy Surgeon: Anabelle Shultz Type of Anesthesia: General Specimen's removed: Vulvar biopsy Estimated Blood Loss (mL): 50 cc Description of Procedure: The patient is a 66-year-old female who has had pelvic organ prolapse for some time managed with pessary. She now presents for definitive surgical intervention. Informed consent was obtained. Anesthesia monitored the head, neck, airway, IV access and vital signs throughout the case. Once anesthesia was appropriate ministered the patient was placed into dorsal lithotomy and Trendelenburg position. She was prepped and draped in usual sterile fashion. A 16 Sammarinese Poe catheter was inserted in the bladder was drained. At this time it was determined that there is an apical posterior defect as well as the anterior cystocele defect. Permission was obtained from the patient's to repair this defect as well. The anterior vaginal wall was isolated and injected Submucosally with 1% lidocaine with epinephrine. A midline vertical incision was made approximately 1.5 cm in length. Sharp and blunt dissection was performed on either side until the ischial spines which were very blunted were palpated and freed from surrounding tissues. The Capio device was then used to pass an Ethibond suture through the sacrospinous ligament bilaterally. The suture was then brought through the dermis which was trimmed to size. The midline of the dermis was tacked using interrupted 2-0 Vicryl to the vaginal apex full-thickness vaginal mucosa. The Ethibond sutures were used then to tie the dermis into position and the suture was then brought through the vaginal mucosa at the apex bilaterally. The dermis was trimmed and attached to the white line bilaterally and to the bladder neck area and the midline. The vaginal mucosa was then closed over the repair using running interlocking 2-0 Vicryl. The Ethibond sutures were tied into position. Attention was then turned towards the posterior defect where the submucosa was once again injected with lidocaine with epinephrine, a midline incision was made, followed by sharp and blunt dissection on either side until the ischial spines were once again palpable. The Capio device was used to pass 2 Ethibond s utures through the sacrospinous ligaments through the dermis which was tacked into position laterally as well as in the midline using a 2-0 Vicryl interrupted suture. At this time the dermis was trimmed to length and tacked distally to the rectovaginal fascia as well as bilaterally. This was done using 2-0 Vicryl interrupted sutures. At this time the incision was closed using running interlocking 2-0 Vicryl and the Ethibond sutures were tied into position. This did slightly change the orientation of the mucosa on the posterior aspect of the vagina. The Poe catheter was removed and a cystourethroscopy was performed revealing no evidence of injury to the urinary bladder and no foreign body identified. The mucosa was normal. A 5 Sammarinese whistle-tip catheter was used to gently cannulate the right ureteral orifice with no difficulty and the catheter extended up to 20 cm before being removed. On the patient's left side there is mild J hooking of the ureter but there was easy passage of the whistle-tip once a 0.035 Glidewire was inserted alongside. At this time the cystoscope was removed and the Poe catheter was replaced draining the urinary bladder. The vagina was packed with estrogen cream and vaginal packing. Due to a discoloration of the area of the vulva near the apical aspect, a 3 mm punch biopsy was taken and sent for evaluation. Pressure was maintained for hemos tasis and bacitracin was applied to the area. The patient was then awakened and taken to the recovery room in good condition. There were no complications during this procedure. Grafts/Implants Used: Dermis Complications None Admit VTE Documentation VTE Present on Admission: Yes VTE Mechan Device Prophylaxis: SCD's VTE Pharm Prophylaxis ordered?: Yes
--- NOTE | 2021-08-09 10:36 | PCM.DC ---
Discharge Instructions Diet Discharge Diet: No restrictions Activity Discharge Activity: May Not Drive and May Shower May resume sexual activity in: 8 weeks Lifting Restrictions: 5 pounds Additional Activity Instructions:: No sexual activity, no exercise, no strenuous activity, no tub bathing, no swimming, no hot tubs Dressing / Incision Call your doctor if your incision/area has: Continuous Slow Oozing, Sudden Increased Bleeding, Increased Pain/ Swelling, Increased Redness, Foul Smelling Discharge and Swelling at the incision site Call your doctor if you observe: Fever of 101 or Higher, Inability to urinate, Inability to have a bowel movement and Uncontrolled pain Follow Up Care Please Follow Up With: Anabelle Shultz MD When: call for appt Test Results: Test results from this visit will be discussed in further detail at your follow-up appointment, if applicable. Discharge Plan Admission Attending Provider: Anabelle Shultz Primary Care Provider: Khushboo Dudley Discharge Orders/Prescriptions Prescriptions: New ondansetron HCl [ondansetron HCl] 8 MG tablet 8 mg PO Q8H PRN PRN (Reason: Nausea) 7 Days Qty: 20 RF: 0 oxycodone-acetaminophen [oxycodone-acetaminophen] 1 TABLET tablet 2 tab PO Q8H PRN PRN (Reason: Pain) 7 Days Qty: 20 RF: 0 sulfamethoxazole-trimethoprim [sulfamethoxazole-trimethoprim] 1 TABLET tablet 1 tab PO BID 3 Days Qty: 6 RF: 0 Continued levothyroxine 75 MCG tablet 75 mcg PO DAILY RF: 0 calcium carbonate 600 MG tablet 1,200 mg PO DAILY RF: 0 dicyclomine 20 MG tablet 20 mg PO 4X/DAY PRN (Reason: Irritable Bowel Syndrome) RF: 0 atenolol 50 MG tablet 50 mg PO BID RF: 0 L. gasseri-B. bifidum-B longum 1 EACH capsule 1 ea PO DAILY RF: 0 ondansetron 4 MG tablet 4 mg PO Q8H PRN PRN (Reason: Nausea) Qty: 10 RF: 0 lisinopril 10 mg Tablet 10 mg PO DAILY RF: 0 multivitamin Capsule 1 cap PO DAILY RF: 0 wheat dextrin 1 gram Tablet 1 g PO DAILY RF: 0 Referrals / Follow Up: Khushboo Dudley MD [Primary Care Provider] - Disposition Disposition (needs filled in before D/C Order can be placed): Home, Self Care
[2021-08-09 10:40] LABS: Anion Gap 7 (5-15); BUN 14 mg/dL (7-18); BUN/Creat Ratio 14.8 RATIO (10-20); Calcium,Total 8.9 mg/dL (8.5-10.1); Chloride 107 mmol/L (98-107); Creatinine, Serum 0.95 mg/dL (0.55-1.02); EST Glomerular Filtration Rate 62 mL/min (>60); Est Glom Filt Rate - Afr Amer 75 mL/min (>60); Estimated Creatinine Clearance 51.71 ml/min; Glucose 102 mg/dL (74-106); Potassium 3.9 mmol/L (3.5-5.1); Sodium Level 141 mmol/L (136-145)
[2021-08-09] MEDS: Ciprofloxacin 400 MG/200 ML BAG 200 MG IV (11:11)
--- NOTE | 2021-08-09 11:15 | VUL_PTH ---
PATIENT: GUMARO CARRASQUILLO LOC: MS2 U#:[id number] AGE/SX: 66/F ROOM: [id number] RE08/09/[address]: Dr. Anabelle Shultz MD : 1955 BED: 1 DIS: 08/10/2021 SPEC #: [id number] RECD: 08/09/21 14:18 STATUS: SHINE WOLFE #: [id number] BLANKA: 08/09/21 11:[address]: Anabelle Shultz DEPT: SURGICAL PATHOLOGY RECD BY: Joslyn Billings ENTERED: 08/10/21 09:08 SP TYPE: VULVA BX OTHR DR: Dr. Khushboo Dudley MD Tissues: Vulva, NOS Procedures: Surgery Specimen Level IV HEADER OPERATION: Anterior and posterior repair with dermis PRE-OP DIAGNOSIS: Vaginal vault prolapse TISSUE SUBMITTED: Vulvar punch biopsy MICROSCOPIC DIAGNOSIS Vulva, punch biopsy: Minimal chronic inflammation. No evidence of malignancy. AM:mattie 08/11/2021 MICROSCOPIC DESCRIPTION Slides are reviewed. GROSS DESCRIPTION Received in fixative is one container labeled with the patient's name and designated vulvar punch biopsy. The specimen consists of a punch biopsy of hennessy-white skin measuring 0.2 cm in diameter and 0.1 cm in length. The entire specimen is submitted in one cassette. / SJ:mattie 08/10/21 TC:3 CPT: 09876
[2021-08-09] MEDS: Lidocaine 1% /Epi 1:100 (20ml) 20 ML Vial (11:35)
--- NOTE | 2021-08-09 14:32 | SUR.PHASEII ---
Patient waiting for room.Phase 2 in PACU.
[2021-08-09] MEDS: Dextrose 5%-Lactated Ringers 1,000 ML 100 ML IV (18:58)
[2021-08-09] MEDS: Enoxaparin 40 MG/0.4 ML Syringe SC (18:59)
[2021-08-09] MEDS: Morphine 2 MG/ML Syringe IV (20:26)
[2021-08-09] MEDS: 0.9% Saline Lock 10 ML Syringe IV (20:26)
[2021-08-09] MEDS: Docusate Sodium 100 MG Capsule PO (22:18)
[2021-08-09] MEDS: Smz/Tmp Ds Tablet 1 TABLET PO (22:18)
[2021-08-09] MEDS: Atenolol 50 MG Tablet PO (22:18)
[2021-08-10 02:27] VITALS: BP 120/56; PULSE 52; RESP 16; TEMP 36.3; O2SAT 96
[2021-08-10] MEDS: Dextrose 5%-Lactated Ringers 1,000 ML 100 ML IV (04:08)
[2021-08-10] MEDS: HYDROcodone Bitartrate/Apap 5/325 Tablet PO (04:12)
[2021-08-10] MEDS: Levothyroxine 75 MCG Tablet PO (05:53)
[2021-08-10 08:14] VITALS: BP 119/59; PULSE 52; RESP 16; TEMP 36.4; O2SAT 97
--- NOTE | 2021-08-10 08:50 | NURSING ---
Deepika removed by Dr. Shultz today 0800.
[2021-08-10] MEDS: Lisinopril 10 MG Tablet PO (11:10)
[2021-08-10] MEDS: Smz/Tmp Ds Tablet 1 TABLET PO (11:11)
[2021-08-10] MEDS: Enoxaparin 40 MG/0.4 ML Syringe SC (11:11)
[2021-08-10] MEDS: Docusate Sodium 100 MG Capsule PO (11:11)
[2021-08-10] MEDS: Atenolol 50 MG Tablet PO (11:11)
--- NOTE | 2021-08-10 12:03 | CASEMGMT ---
RUDDY ROSE in to discuss PHAN form with patient. RN MILTON explained PHAN form to patient, patient voiced understanding. Patient signed PHAN form and filed in chart. Patient provided with copy of signed PHAN form. Patient had no further questions to concerns at this time.
[2021-08-10 14:00] VITALS: BP 129/63; PULSE 56; RESP 16; TEMP 36.7; O2SAT 98
== END 2021-08-10 16:15 | disposition home or self-care (01) ==
LOC: SDC 16:41 → MS2 16:41
PROVIDERS: Anesthesiology; Admitting Provider Urology; PCP Family Medicine; Referring Provider Urology; Visit Provider Urology
PROC: (CPT 57260; principal; 2021-08-09 11:00)
DX: N99.3 Prolapse of vaginal vault after hysterectomy (principal); M79.7 Fibromyalgia; I10 Essential (primary) hypertension; G25.81 Restless legs syndrome; R00.1 Bradycardia, unspecified; E03.9 Hypothyroidism, unspecified; Z79.899 Other long term (current) drug therapy; Z79.890 Hormone replacement therapy; Z87.891 Personal history of nicotine dependence
CPT/HCPCS: 00942; 11104; 57260; 36415; 80048; 84443; 85027; 88305; 93005; 96361; 96372; 96374; 99218; 99251; J7120; A4216; C1758; G0378; G0463; J0744; J2405

== ENCOUNTER → 2022-06-23 | Outpatient (CLI) | payer MEDICARE, OTHER, SELFPAY ==
[2022-06-23 10:05] LABS: Absolute Neutrophil Count 3.2 X10^3/uL (2.0-7.7); Basophil# 0.03 X10^3/uL; Basophil% 0.6 % (0-1); Eosinophils% 1.9 % (0-5); Hematocrit 39.2 % (37-47); Hemoglobin 13.1 g/dL (12.0-15.0); Lymphocyte % 28.3 % (19-41); Mean Corp Hgb Conc 33.4 g/dL (32-36); Mean Corpuscular Hgb 32.8 pg (27.0-32.0); Mean Corpuscular Volume 98.2 fL (81-99); Mean Platelet Vol. 10.3 fl (6.2-12.0); Monocyte# 0.43 X10^3/uL; Monocyte% 8.1 % (0-10); NRBC Flagged by Analyzer 0 % (0-5); Neutrophil # 3.23 X10^3/uL (2.7-7.7); Neutrophil % 60.9 % (47-70); Platelet Count 140 K/mm3 (150-450); RBC Distribution Width CV 13.1 % (11.6-14.6); RBC Distribution Width SD 47.4 fl (35.1-43.9); Red Blood Count 3.99 M/mm3 (4.2-5.4); White Blood Count 5.3 K/mm3 (4.4-11.0)
[2022-06-23 10:42] LABS: ALB/GLOB Ratio 0.8 RATIO (0.9-2.4); AST(SGOT) 13 U/L (15-37); Alanine Aminotransfer ALT/SGPT 21 U/L (13-56); Albumin, Serum 3.4 g/dL (3.2-5.0); Alkaline Phosphatase 75 U/L (45-117); Anion Gap 7 (5-15); BUN 11 mg/dL (7-18); BUN/Creat Ratio 13.8 RATIO (10-20); Calcium,Total 8.7 mg/dL (8.5-10.1); Chloride 110 mmol/L (98-107); Cholesterol 185 mg/dL (200); EST Glomerular Filtration Rate 76 mL/min (>60); Est Glom Filt Rate - Afr Amer 92 mL/min (>60); Globulin 4.1 g/dL (2.2-4.2); Glucose 93 mg/dL (74-106); High Density Lipoprotein 61 mg/dL; Potassium 3.9 mmol/L (3.5-5.1); Protein, Total 7.5 g/dL (6.4-8.2); Sodium Level 143 mmol/L (136-145); Thyroid Stim Hormone (TSH) 1.33 uIU/mL (0.358-3.74); Triglycerides 50 mg/dL; Very Low Density Lipoprotein 10 mg/dL (5-40)
== END | disposition home or self-care (01) ==
PROVIDERS: PCP Family Medicine; Referring Provider Family Medicine; Visit Provider Family Medicine
DX: Z00.00 Encounter for general adult medical examination without abnormal findings (principal); I10 Essential (primary) hypertension; E03.9 Hypothyroidism, unspecified
CPT/HCPCS: 36415; 80053; 80061; 84443; 85025

== ENCOUNTER → 2022-07-04 | Outpatient (CLI) | payer MEDICARE, OTHER, SELFPAY ==
--- NOTE | 2022-07-04 12:53 | BI_ITS ---
MAMMOGRAPHY - BILATERAL SCREENING 3-D TOMOSYNTHESIS REASON FOR EXAM: Female, 67 years old. SCREENING PERTINENT HISTORY: No significant family history. TECHNIQUE: 2-D mammograms and 3-D Tomosynthesis of the breast (s) were performed. CAD was performed. COMPARISON: 06/28/2021 FINDINGS: The breast composition is heterogeneously dense that can obscure small breast masses. Scattered benign calcifications are seen. No dense spiculated masses or suspicious microcalcifications are identified. No architectural distortion is identified. There is no skin thickening or retraction. There has been no significant change since the prior study. BI/SCRN MAMM (CAD)W/BILLY BILAT IMPRESSION: No mammographic signs of malignancy. Routine yearly mammograms recommended. ASSESSMENT CATEGORY: BIRADS Category 1: Negative. A letter regarding these results will be sent to the patient by the facility within 30 days. FOLLOW UP RECOMMENDATION: Yearly follow up mammogram recommended. (A) Approximately 10% of breast cancers are not detected by mammography. A normal mammogram should not delay biopsy of a clinically suspicious abnormality. Electronically Signed: Costa Barbour MD at 14:43 EDT ,
== END | disposition home or self-care (01) ==
LOC: OPBI 12:51
PROVIDERS: PCP Family Medicine; Visit Provider Family Medicine
DX: Z12.31 Encounter for screening mammogram for malignant neoplasm of breast (principal)
CPT/HCPCS: 77063; 77067

== ENCOUNTER 2022-09-01 07:21 | Day surgery (SDC) | payer MEDICARE, OTHER, SELFPAY ==
[2022-09-01] VITALS (7 sets, daily range): BP systolic 104–166; BP diastolic 54–141; PULSE 57–64; RESP 18; TEMP 36.4–37; O2SAT 97–99; BMI 36.6
[2022-09-01] MEDS: Lactated Ringers 1,000 ML 15 ML IV (07:49)
--- NOTE | 2022-09-01 08:17 | PCM.HP.STD ---
HPI - General General Date of Admission: 09/01/22 Date of Service: 09/01/22 Chief Complaint: Screening colonoscopy HPI Narrative GUMARO CARRASQUILLO, is a 67 F who presents today for screening colonoscopy. She has a past medical history of hypertension and hypothyroidism which are both under control. She has no abdominal pain. She denies any cramping. She denies any chest pain or shortness of breath. She denies any weakness. She denies any change in bowel habits. She denies any constipation, bleeding or bloating. All other 60 review systems are negative except as per implies mentioned HPI. [facility] Medical History (Updated 08/29/22 @ 16:11 by Idalia Rosas) Anemia Bladder disease Chest pain Cystocele, midline Diarrhea Diverticulosis Diverticulosis Epigastric pain Fibromyalgia Former smoker Heartburn History of diverticulosis History of edema History of IBS History of stress test HTN (hypertension) Hypothyroidism Restless legs Vaginal vault prolapse Wears glasses Home Medications atenolol 50 mg tablet 50 mg PO BID 01/04/18 [History Last Taken 09/01/22] calcium carbonate 600 mg calcium (1,500 mg) tablet 1,200 mg PO DAILY 01/04/18 [History Last Taken Unknown] levothyroxine 75 mcg tablet 75 mcg PO DAILY 01/04/18 [History Last Taken Unknown] ondansetron 4 mg disintegrating tablet 4 mg PO Q8H PRN PRN Nausea #10 tabs 01/04/18 [Rx Last Taken Unknown] lisinopril 10 mg tablet 10 mg PO BID 08/02/21 [History Last Taken 09/01/22] conjugated estrogens 0.625 mg/gram vaginal cream (Premarin) 0.625 mg vaginal .Q3DAYS 06/28/22 [History Last Taken Unknown] triamcinolone acetonide 0.5 % topical cream 1 applic topical DAILY PRN PRN ECZEMA 06/28/22 [History Last Taken Unknown] multivitamin-ferrous fumarate-folic acid 18 mg-400 mcg tablet (Centrum Women) 1 tab PO DAILY 08/29/22 [History Last Taken Unknown] Allergy/AdvReac Type Severity Reaction Status Date / Time cefaclor [From [facility]] Allergy Hives Verified 09/01/22 07:38 latex Allergy Rash Verified 09/01/22 07:38 Family History (Updated 06/28/22 @ 09:08 by Yoselin Patiño) Mother Cancer lung Diabetes Colon polyps Father Hypertension Brother Diabetes Colon polyps Surgical History (Updated 08/29/22 @ 16:00 by Idalia Rosas) H/O section History of bladder suspension procedure History of esophagogastroduodenoscopy (EGD) Infected cyst of Bartholin's gland duct S/P cataract extraction S/P colonoscopy S/P hysterectomy S/P laparoscopic cholecystectomy S/P rotator cuff repair Status post dilation and curettage Status post hysteroscopic myomectomy Status post lymph node biopsy Social History Smoking Status: Former smoker ROS Review of Systems ROS Unobtainable: other Constitutional Constitutional: Denies fatigue, fever(s), poor appetite, weight gain or weight loss ENT HEENT: Denies mouth lesions Cardiovascular Cardiovascular: Denies abdominal bloating, abdominal edema or abdominal pain Respiratory/Chest Respiratory/Chest: Denies change in mental status, change in phlegm color, chest congestion or chest tightness Gastrointestinal Gastrointestinal: Denies belching, bloating, change in bowel habits, change in stool character, chewing difficulty, coffee ground emesis, constipation, cramping, diarrhea, dyspepsia, dysphagia, early satiety, excessive flatus, fecal incontinence, heartburn, hematemesis, hematochezia, hemorrhoids, loose stools, melena, nausea, odynophagia, rectal bleeding, tenesmus, vomiting or weight changes Genitourinary Genitourinary: Denies abdominal discomfort, burning urination or itching Musculoskeletal Musculoskeletal: Reports as per HPI; Denies muscle weakness or myalgias Integumentary Integumentary: Denies jaundice Neurologic Neurologic: Denies lack of coordination or weakness Psychiatric Psychiatric: Denies confusion, depression, memory loss, mood swings, paranoia or suicidal ideation Endocrine Endocrinology: Denies systems reviewed and no addt'l complaints, except as documented Hematologic/Lymphatic Hematologic/Lymphatic: Denies anemia, easy bleeding, easy bruising or lymphadenopathy Allergic/Immunologic Allergic/Immunologic: Denies systems reviewed and no addt'l complaints, except as documented Vital Signs Vital Signs Vital Signs: 09/01/22 07:38 Temperature 97.6 F L Temperature Source Temporal Pulse Rate 63 Respiratory Rate 18 Blood Pressure 166/81 H Blood Pressure Mean 109 Blood Pressure Source Monitor Blood Pressure Position Sitting Blood Pressure Location Left Arm Pulse Ox 99 Oxygen Delivery Method Room Air Weight Weight: 220 lb 7.396 oz Body Mass Index (BMI) 36.6 Physical Exam Const alert General Appearance: cooperative Orientation / Consciousness: oriented to person HEENT hearing grossly normal bilaterally Head and Scalp: normal to inspection Face and Sinus: face symmetric Nose: external nose normal Mouth: oral and palatal mucosa normal Eyes conjunctivae normal General Eye: normal appearance of both eyes Neck full ROM General: normal visual inspection Lymph Lymphatic: no lymphadenopathy noted Chest inspection of chest normal and palpation of chest normal Chest: symmetrical chest wall rise Resp normal respiratory effort Effort and Inspection: able to speak in complete sentences Cardio regular rate GI non-distended Percussion: normal to percussion Rectal Exam: deferred Neuro Speech: speech normal Gait (Neuro): normal gait Assessment & Plan Assessment/Plan (1) Encounter for screening for malignant neoplasm of colon: PLAN: She will undergo screening colonoscopy. She was explained alternatives, risk, benefits including nondistended bleeding, infection, sepsis, perforation, need for mergers or . She will have an ASA of of 1.
--- NOTE | 2022-09-01 08:30 | COLBX_PTH ---
PATIENT: GUMARO CARRASQUILLO LOC: EN U#:[id number] AGE/SX: 67/F ROOM: RE09/01/[address]: Dr. Rubens Owusu DO : 1955 BED: DIS: 09/01/2022 SPEC #: [id number] RECD: 09/01/22 10:55 STATUS: SHINE REQ #: [id number] BLANKA: 09/01/22 08:[address]: Rubens Owusu DEPT: SURGICAL PATHOLOGY RECD BY: Diana Alvarez ENTERED: 09/01/22 11:40 SP TYPE: COLON BX OTHR DR: Dr. Khushboo Dudley MD Tissues: A - Cecum, NOS B - COLON BIOPSY C - Sigmoid colon biopsy Procedures: Surgery Specimen Level IV HEADER OPERATION: Colonoscopy, open access (MAC) PRE-OP DIAGNOSIS: Encounter for screening for malignant neoplasm of the colon TISSUE SUBMITTED: A. Cecum biopsy, B. Random colon biopsy, C. Sigmoid colon biopsy MICROSCOPIC DIAGNOSIS A. Cecum, biopsy: Focal acute colitis. See comment. B. Random colon, biopsy: Fragments of colonic mucosa, no pathologic diagnosis. C. Sigmoid colon, biopsy: Fragments of colonic mucosa with focal ulceration, acute and chronic inflammation and granulation tissue reaction. /SJ 09/02/22 COMMENT A. Focal minimal cryptitis is noted. Crypt abscess, glandular distortion or granulomas are not seen. Correlation with clinical, endoscopic findings and appropriate follow up are necessary. MICROSCOPIC DESCRIPTION Slides are reviewed. GROSS DESCRIPTION A. Received is one container labeled with the patient name and designated cecum. The specimen consists of multiple irregular fragments of light hennessy soft tissue that in aggregate measure 1 x 0.3 x 0.1 cm. The specimen is totally submitted in one cassette. B. Received is one container labeled with the patient name and designated random colon. The specimen consists of multiple irregular fragments of light hennessy soft tissue that in aggregate measure 1.5 x 0.5 x 0.1 cm. The specimen is totally submitted in one cassette. C. Received is one container labeled with the patient name and designated sigmoid. The specimen consists of multiple irregular fragments of light hennessy soft tissue that in aggregate measure 1.5 x 0.4 x 0.1 cm. The specimen is totally submitted in one cassette. /SULAIMAN:brian 09/01/2022 TC:2 CPT: 56814 x3
--- NOTE | 2022-09-01 08:51 | OP.CCLET_ITS ---
09/01/2022 Khushboo Dudley [place] [id number] [address] Re : Colonoscopy procedure for Cathy Brooks Dear Dr. Dudley This procedure was performed on August. My impressions and recommendations are as follows: Impressions : - A few ulcers in the sigmoid colon. Biopsied. - Diverticulosis in the recto-sigmoid colon, in the sigmoid colon, in the descending colon and at the splenic flexure. - Granularity in the sigmoid colon. Biopsied. - Congested mucosa in the transverse colon, at the hepatic flexure and in the cecum. Biopsied. - The examined portion of the ileum was normal. Biopsied. Recommendations : - Discharge patient to home. - Resume previous diet. - Continue present medications. - Await pathology results. - Repeat colonoscopy in 5 years for surveillance. My findings are described in the full procedure note, which is enclosed. If I can be of further assistance, please feel free to contact me at . Sincerely, Rubens Owusu, 09/01/2022 8:50:37 AM This report has been signed electronically.
--- NOTE | 2022-09-01 08:51 | OP.COLON_ITS ---
Patient Name: Cathy Brooks Procedure Date: 09/01/2022 8:19 AM Date of : 1955 Age: 67 Procedure: Colonoscopy Indications: Screening for colorectal malignant neoplasm Providers: Rubens Owusu DO Medicines: Monitored Anesthesia Care Patient Profile: This is a 67 year old female. Refer to note in patient chart for documentation of history and physical. Last Colonoscopy: 10 years ago. Complications: No immediate complications. Procedure: Pre-Anesthesia Assessment: - Prior to the procedure, a History and Physical was performed, and patient medications and allergies were reviewed. The patient is competent. The risks and benefits of the procedure and the sedation options and risks were discussed with the patient. All questions were answered and informed consent was obtained. Patient identification and proposed procedure were verified by the physician in the pre-procedure area. Mental Status Examination: alert and oriented. Airway Examination: normal oropharyngeal airway and neck mobility. Respiratory Examination: clear to auscultation. CV Examination: normal. Prophylactic Antibiotics: The patient does not require prophylactic antibiotics. Prior Anticoagulants: The patient has taken no previous anticoagulant or antiplatelet agents. ASA Grade Assessment: II - A patient with mild systemic disease. After reviewing the risks and benefits, the patient was deemed in satisfactory condition to undergo the procedure. The anesthesia plan was to use monitored anesthesia care (MAC). Immediately prior to administration of medications, the patient was re-assessed for adequacy to receive sedatives. The heart rate, respiratory rate, oxygen saturations, blood pressure, adequacy of pulmonary ventilation, and response to care were monitored throughout the procedure. The physical status of the patient was re-assessed after the procedure. After I obtained informed consent, the scope was passed under direct vision. Throughout the procedure, the patient's blood pressure, pulse, and oxygen saturations were monitored continuously. The Colonoscope was introduced through the anus and advanced to the cecum, identified by appendiceal orifice and ileocecal valve. The colonoscopy was performed without difficulty. The patient tolerated the procedure well. The quality of the bowel preparation was good. Scope In: 8:28:50 AM Scope Withdrawal Time 0 hours 8 minutes 9 seconds Scope Out: 8:43:26 AM Total Procedure Duration Time 0 hours 14 minutes 36 seconds Findings: The perianal and digital rectal examinations were normal. A few three mm ulcers were found in the sigmoid colon. No bleeding was present. Biopsies were taken with a cold forceps for histology. Verification of patient identification for the specimen was done. Estimated blood loss was minimal. Multiple small and large-mouthed diverticula were found in the recto-sigmoid colon, sigmoid colon, descending colon and splenic flexure. A segmental area of granular mucosa was found in the sigmoid colon. Biopsies were taken with a cold forceps for histology. Verification of patient identification for the specimen was done. Estimated blood loss was minimal. An area of mildly congested mucosa was found in the transverse colon, at the hepatic flexure and in the cecum. Biopsies were taken with a cold forceps for histology. Verification of patient identification for the specimen was done. Estimated blood loss was minimal. The terminal ileum appeared normal. Biopsies were taken with a cold forceps for histology. Verification of patient identification for the specimen was done. Estimated blood loss was minimal. Impression: - A few ulcers in the sigmoid colon. Biopsied. - Diverticulosis in the recto-sigmoid colon, in the sigmoid colon, in the descending colon and at the splenic flexure. - Granularity in the sigmoid colon. Biopsied. - Congested mucosa in the transverse colon, at the hepatic flexure and in the cecum. Biopsied. - The examined portion of the ileum was normal. Biopsied. Recommendation: - Discharge patient to home. - Resume previous diet. - Continue present medications. - Await pathology results. - Repeat colonoscopy in 5 years for surveillance. Procedure Code(s): --- Professional --- 49073, Colonoscopy, flexible; with biopsy, single or multiple CPT copyright 2017 [employer]. All rights reserved. The codes documented in this report are preliminary and upon purchasing and claims supervisor review may be revised to meet current compliance requirements. Rubens Owusu DO 09/01/2022 8:50:37 AM This report has been signed electronically. Number of Addenda: 0 Note Initiated On: 09/01/2022 8:19 AM
== END 2022-09-01 10:01 | disposition home or self-care (01) ==
LOC: EN 07:22 → AC 07:23
PROVIDERS: PCP Family Medicine; Referring Provider Family Medicine; Visit Provider Internal Medicine Gastroenterology
PROC: 0DJD8ZZ Inspection of Lower Intestinal Tract, Via Natural or Artificial Opening Endoscopic (ICD-10-PCS; CPT 45378; principal; 2022-09-01 08:25)
DX: Z12.11 Encounter for screening for malignant neoplasm of colon (principal); K57.30 Diverticulosis of large intestine without perforation or abscess without bleeding; K52.9 Noninfective gastroenteritis and colitis, unspecified; K63.89 Other specified diseases of intestine; K63.3 Ulcer of intestine; I10 Essential (primary) hypertension; E03.9 Hypothyroidism, unspecified; Z87.891 Personal history of nicotine dependence; Z79.899 Other long term (current) drug therapy
CPT/HCPCS: 45380; 88305; J7120; J2405

== ENCOUNTER → 2023-06-15 | Outpatient (CLI) | payer MEDICARE, OTHER, SELFPAY ==
[2023-06-15 12:20] LABS: Absolute Neutrophil Count 3.2 X10^3/uL (2.0-7.7); Basophil# 0.03 X10^3/uL; Basophil% 0.6 % (0-1); Eosinophil# 0.12 X10^3/uL; Eosinophils% 2.3 % (0-5); Hematocrit 38.7 % (37-47); Hemoglobin 12.4 g/dL (12.0-15.0); Lymphocyte % 24.8 % (19-41); Mean Corpuscular Hgb 31.9 pg (27.0-32.0); Mean Corpuscular Volume 99.5 fL (81-99); Mean Platelet Vol. 10.5 fl (6.2-12.0); Monocyte# 0.54 X10^3/uL; Monocyte% 10.3 % (0-10); NRBC Flagged by Analyzer 0 % (0-5); Neutrophil # 3.24 X10^3/uL (2.7-7.7); Neutrophil % 61.8 % (47-70); Platelet Count 129 K/mm3 (150-450); RBC Distribution Width CV 13.1 % (11.6-14.6); RBC Distribution Width SD 47.9 fl (35.1-43.9); Red Blood Count 3.89 M/mm3 (4.2-5.4); White Blood Count 5.2 K/mm3 (4.4-11.0)
[2023-06-15 13:50] LABS: ALB/GLOB Ratio 0.8 RATIO (0.9-2.4); AST(SGOT) 18 U/L (15-37); Alanine Aminotransfer ALT/SGPT 23 U/L (13-56); Albumin, Serum 3.3 g/dL (3.2-5.0); Alkaline Phosphatase 75 U/L (45-117); Anion Gap 6 (5-15); BUN 15 mg/dL (7-18); BUN/Creat Ratio 17.8 RATIO (10-20); Calcium,Total 8.6 mg/dL (8.5-10.1); Chloride 109 mmol/L (98-107); Cholesterol 160 mg/dL (200); Creatinine, Serum 0.84 mg/dL (0.55-1.02); EST Glomerular Filtration Rate 71 mL/min (>60); Est Glom Filt Rate - Afr Amer 86 mL/min (>60); Globulin 3.9 g/dL (2.2-4.2); Glucose 87 mg/dL (74-106); High Density Lipoprotein 54 mg/dL; Potassium 4.3 mmol/L (3.5-5.1); Protein, Total 7.2 g/dL (6.4-8.2); Sodium Level 140 mmol/L (136-145); Triglycerides 49 mg/dL; Very Low Density Lipoprotein 10 mg/dL (5-40)
== END | disposition home or self-care (01) ==
LOC: BFHLAB 08:15
PROVIDERS: PCP Family Medicine; Referring Provider Family Medicine; Visit Provider Family Medicine
DX: Z00.00 Encounter for general adult medical examination without abnormal findings (principal); I10 Essential (primary) hypertension; E03.9 Hypothyroidism, unspecified
CPT/HCPCS: 36415; 80053; 80061; 84443; 85025

== ENCOUNTER → 2023-12-08 | Outpatient (CLI) | payer MEDICARE, OTHER, SELFPAY ==
--- NOTE | 2023-12-08 10:36 | BI_ITS ---
MAMMOGRAPHY - BILATERAL SCREENING REASON FOR EXAM: Female, 68 years old. Routine annual screening examination. PERTINENT HISTORY: Non-contributory. TECHNIQUE: Digital bilateral breast billy (3D mammographic acquisition) in the CC and MLO projections. 2-D mediolateral oblique (MLO) and craniocaudad (CC) views of both breasts were obtained. CAD: Full Field Digital Mammography with Computer Added Detection was performed. COMPARISON: Comparison is made with prior study dated July 04, 2022 and June 28, 2021. FINDINGS: Breast Composition: The breasts are heterogeneously dense, which may obscure small masses. There are no dominant masses or suspicious calcifications. Stable benign-appearing bilateral axillary lymph nodes. No other significant abnormalities are identified. There has been no significant change since the prior study. BI/SCRN MAMM (CAD)W/BILLY BILAT IMPRESSION: Negative screening mammogram. Yearly followup mammogram recommended. (A) ASSESSMENT CATEGORY: BIRADS Category 2: Benign. A letter regarding these results will be sent to the patient by the facility within 30 days. Approximately 10% of breast cancers are not detected by mammography. A normal mammogram should not delay biopsy of a clinically suspicious abnormality. [id number] Electronically Signed: Armin Kelly MD at 12:09 EST ,
== END | disposition home or self-care (01) ==
LOC: OPBI 10:34
PROVIDERS: PCP Family Medicine; Referring Provider Family Medicine; Visit Provider Family Medicine
DX: Z12.31 Encounter for screening mammogram for malignant neoplasm of breast (principal)
CPT/HCPCS: 77063; 77067

== ENCOUNTER → 2024-06-03 | Outpatient (CLI) | payer MEDICARE, OTHER, SELFPAY ==
[2024-06-03 10:29] LABS: Absolute Lymphocyte Count 1.29 X10^3/uL (0.83-4.51); Absolute Neutrophil Count 3.3 X10^3/uL (2.0-7.7); Basophil# 0.03 X10^3/uL; Basophil% 0.6 % (0-1); Eosinophil# 0.07 X10^3/uL; Eosinophils% 1.3 % (0-5); Hematocrit 39.3 % (37-47); Hemoglobin 12.8 g/dL (12.0-15.0); Lymphocyte # 1.29 X10^3/ul (0.83-4.51); Lymphocyte % 24.8 % (19-41); Mean Corp Hgb Conc 32.6 g/dL (32-36); Mean Corpuscular Hgb 31.8 pg (27.0-32.0); Mean Corpuscular Volume 97.8 fL (81-99); Mean Platelet Vol. 10.3 fl (6.2-12.0); Monocyte# 0.49 X10^3/uL; Monocyte% 9.4 % (0-10); NRBC Flagged by Analyzer 0 % (0-5); Neutrophil % 63.5 % (47-70); Platelet Count 133 K/mm3 (150-450); RBC Distribution Width CV 12.7 % (11.6-14.6); RBC Distribution Width SD 45.3 fl (35.1-43.9); Red Blood Count 4.02 M/mm3 (4.2-5.4); White Blood Count 5.2 K/mm3 (4.4-11.0)
[2024-06-03 10:41] LABS: ALB/GLOB Ratio 0.8 RATIO (0.9-2.4); AST(SGOT) 15 U/L (15-37); Alanine Aminotransfer ALT/SGPT 21 U/L (13-56); Albumin, Serum 3.3 g/dL (3.2-5.0); Alkaline Phosphatase 85 U/L (45-117); Anion Gap 3 (5-15); BUN 15 mg/dL (7-18); BUN/Creat Ratio 16.5 RATIO (10-20); Calcium,Total 8.6 mg/dL (8.5-10.1); Chloride 110 mmol/L (98-107); Cholesterol 168 mg/dL (200); Creatinine, Serum 0.91 mg/dL (0.55-1.02); EST Glomerular Filtration Rate 65 mL/min (>60); Est Glom Filt Rate - Afr Amer 78 mL/min (>60); Globulin 4.1 g/dL (2.2-4.2); Glucose 107 mg/dL (74-106); High Density Lipoprotein 60 mg/dL; Potassium 4.2 mmol/L (3.5-5.1); Protein, Total 7.4 g/dL (6.4-8.2); Sodium Level 140 mmol/L (136-145); Triglycerides 48 mg/dL; Very Low Density Lipoprotein 10 mg/dL (5-40)
== END | disposition home or self-care (01) ==
LOC: LAB.FUTURE 07:59 → MTLAB 08:01
PROVIDERS: PCP Family Medicine; Referring Provider Family Medicine; Visit Provider Family Medicine
DX: I10 Essential (primary) hypertension (principal); E03.9 Hypothyroidism, unspecified; K58.0 Irritable bowel syndrome with diarrhea
CPT/HCPCS: 36415; 80053; 80061; 84443; 85025

== ENCOUNTER → 2025-02-20 | Outpatient (CLI) | payer MEDICARE, OTHER, SELFPAY ==
[2025-02-20 11:19] LABS: Absolute Lymphocyte Count 1.47 X10^3/uL (0.83-4.51); Absolute Neutrophil Count 3.8 X10^3/uL (2.0-7.7); Basophil# 0.03 X10^3/uL; Basophil% 0.5 % (0-1); Eosinophil# 0.05 X10^3/uL; Eosinophils% 0.8 % (0-5); Hematocrit 39.7 % (37-47); Hemoglobin 13.1 g/dL (12.0-15.0); Lymphocyte # 1.47 X10^3/ul (0.83-4.51); Lymphocyte % 24.7 % (19-41); Mean Corpuscular Hgb 32.1 pg (27.0-32.0); Mean Corpuscular Volume 97.3 fL (81-99); Mean Platelet Vol. 10.5 fl (6.2-12.0); Monocyte# 0.56 X10^3/uL; Monocyte% 9.4 % (0-10); NRBC Flagged by Analyzer 0 % (0-5); Neutrophil # 3.82 X10^3/uL (2.7-7.7); Neutrophil % 64.4 % (47-70); Platelet Count 140 K/mm3 (150-450); RBC Distribution Width CV 12.7 % (11.6-14.6); RBC Distribution Width SD 45.8 fl (35.1-43.9); Red Blood Count 4.08 M/mm3 (4.2-5.4); White Blood Count 5.9 K/mm3 (4.4-11.0)
[2025-02-20 11:41] LABS: ALB/GLOB Ratio 1.2 RATIO (0.9-2.4); AST(SGOT) 22 U/L (<=31); Alanine Aminotransfer ALT/SGPT 13 U/L (<=34); Alkaline Phosphatase 81 U/L (35-104); Anion Gap 10 (5-15); BUN 13 mg/dL (4-19); BUN/Creat Ratio 14.9 RATIO (10-20); Calcium,Total 9.1 mg/dL (7.6-11.0); Carbon Dioxide 23.1 mmol/L (21.0-32.0); Chloride 107 mmol/L (98-108); Cholesterol 188 mg/dL (<=200); Creatinine, Serum 0.85 mg/dL (0.70-1.20); EST Glomerular Filtration Rate 73 (>60); Globulin 3.2 g/dL (2.2-4.2); Glucose 99 mg/dL (70-99); High Density Lipoprotein 57 mg/dL; Low Density Lipoprotein Calc. 123 mg/dL; Potassium 4.1 mmol/L (3.3-5.1); Protein, Total 7.2 g/dL (5.9-8.4); Sodium Level 141 mmol/L (133-145); Total Bilirubin 0.37 mg/dL (0.00-1.30); Triglycerides 44 mg/dL; Very Low Density Lipoprotein 9 mg/dL (5-40); cholesterol:hdl ratio screen 3.33
[2025-02-20 11:53] LABS: Pro- Brain NATRIURETIC PEPTIDE 320 pg/mL (<=900)
== END | disposition home or self-care (01) ==
LOC: MTLAB 08:05
PROVIDERS: PCP Family Medicine; Referring Provider Family Medicine; Visit Provider Family Medicine
DX: I10 Essential (primary) hypertension (principal); E03.9 Hypothyroidism, unspecified; K58.0 Irritable bowel syndrome with diarrhea
CPT/HCPCS: 36415; 80053; 80061; 83880; 84443; 85025

== ENCOUNTER → 2025-03-07 | Outpatient (CLI) | payer MEDICARE, OTHER, SELFPAY ==
--- NOTE | 2025-03-07 12:59 | BI_ITS ---
EXAM: SCRN MAMM (CAD)W/BILLY BILAT 03/07/2025 CLINICAL HISTORY: F, Age 70 y/o , SCREENING TECHNIQUE: Bilateral screening digital breast tomosynthesis with 2D and 3D images. Computer aided detection. COMPARISON: Prior exam(s) dated 12/08/2023, 07/04/2022. FINDINGS: TISSUE DENSITY: The breast tissue is composed of scattered area of fibroglandular density. Bilateral Breast Mammographic Findings: There is a mass in the slightly lower central right breast at middle depth. No significant masses, calcifications or other abnormalities are identified in left breast. BI/SCRN MAMM (CAD)W/BILLY BILAT IMPRESSION: The mass in the slightly lower central right breast at middle depth requires fu rther evaluation. Recommend diagnostic ultrasound of the right breast. Right Breast: BIRADS 0 Incomplete: Need additional imaging evaluation and/or pr ior mammograms for comparison.. Left Breast: BIRADS 1 NEGATIVE. OVERALL FINAL ASSESSMENT: BIRADS 0 Incomplete: Need additional imaging evaluati on and/or prior mammograms for comparison.. RECOMMENDATION: Ultrasound. A letter with findings and recommendations will be mailed to the patient. Reading Location: [id number]
== END | disposition home or self-care (01) ==
LOC: CVS 12:55
PROVIDERS: PCP Family Medicine; Referring Provider Family Medicine; Visit Provider Family Medicine
DX: Z12.31 Encounter for screening mammogram for malignant neoplasm of breast (principal)
CPT/HCPCS: 77063; 77067

== ENCOUNTER → 2025-03-18 | Outpatient (CLI) | payer MEDICARE, OTHER, SELFPAY ==
--- NOTE | 2025-03-18 09:22 | US_ITS ---
PROCEDURE: BREAST LIMITED UNILATERAL 03/18/2025 REASON FOR EXAM: 70-year-old female presents for follow-up of the right breast finding on examination of 03/07/2025. No family history of breast cancer. TECHNIQUE: Targeted right breast ultrasound. COMPARISON: Mammogram 03/07/2025, 12/08/2023 and 07/04/2022 FINDINGS: Right breast ultrasound was targeted to the lower outer/central. Follow-up examination performed for the right breast mass visualized on examination of 03/07/2025. On the present examination, there is a cyst in the right breast at 7 o'clock 2 cm from the nipple measuring 1.3 x 1.0 x 0.7 cm. This is an appropriate correlate for the mammographic finding. US/Breast Limited Unilateral IMPRESSION: Impression: Benign right breast cyst. Birads: BI-RADS 2: BENIGN. RECOMMEND ANNUAL MAMMOGRAPHIC SCREENING. Reading Location: [id number]
== END | disposition home or self-care (01) ==
LOC: OPUS 09:21
PROVIDERS: PCP Family Medicine; Referring Provider Family Medicine; Visit Provider Family Medicine
DX: N60.01 Solitary cyst of right breast (principal)
CPT/HCPCS: 76642

== ENCOUNTER → 2025-03-27 | Outpatient (CLI) | payer MEDICARE, OTHER, SELFPAY ==
--- OUTSIDE RECORDS SUMMARY | 2025-03-27 06:30 | XMS RPT_ITS | CCD ---
Author Organization [facility] Care Team Providers Care Junk Dealer Name Role Phone Dr. Khushboo Dudley Primary Care Provider Yoselin Patiño Attending Provider Unavailable Dr. Khushboo Dudley Primary Care Provider Yoselin Patiño Attending Provider Unavailable Dr. Khushboo Dudley Referring Provider [phone] Friend[facility]. Art Attending Provider FriendDr. Art Other Provider [phone] Dr. Khushboo Dudley MD Primary Care Provider [phone] Dr. Khushboo Dudley MD Attending Provider Dr. Khushboo Dudley MD Referring Provider Khushboo Dudley Primary Care Unavailable Khushboo Dudley Attending Unavailable Khushboo Dudley Referring Unavailable Khushboo Dudley Primary Care Unavailable Khushboo Dudley Attending Unavailable Khushboo Dudley Referring Unavailable Khushboo Dudley Primary Care Unavailable Khushboo Dudley Attending Unavailable Khushboo Dudley Referring Unavailable Khushboo Dudley Primary Care Unavailable Khushboo Dudley Attending Unavailable Khushboo Dudley Referring Unavailable Khushboo Dudley Primary Care Unavailable Khushboo Dudley Attending Unavailable Khushboo Dudley Referring Unavailable Allergies Allergy Classification Reported Allergen(s) Allergy Type Date of Onset Reaction(s) Facility (8 sources) Cefaclor Drug Allergy 08-02-2021 [facility] (8 sources) Latex Allergy to substance 08-02-2021 [facility] (1 source) Cefaclor Drug Allergy 09-01-2022 [facility] (1 source) Latex Drug allergy (disorder) 09-01-2022 [facility] Medications Current Medications Medication Drug Class(es) Dates Sig (Normalized) Sig (Original) acetaminophen 325 mg / oxyCODONE hydrochloride 5 mg oral tablet (2 sources) Opioid Agonist Start: 08-09-2021 take 2 tablets by mouth every eight hours as needed Oxycodone-Acetami nophen Active 2 TABLET PO EVERY 8 HOURS NEEDED 04 05August 09, 2021 [id number] 200 actuat albuterol 0.09 mg/actuat metered dose inhaler (1 source) beta2-Adrenergic Agonist Start: 06-28-2022 take 1 puff(s) by inhalation every six hours Albuterol Sulfate Active 2 PUFF INHALATION EVERY 6 HOURS June 28, 2022 12:00am atenolol 50 mg oral tablet (8 sources) beta-Adrenergic Elana Start: 01-04-2018 take 1 tablet by mouth twice daily Atenolol 50 MG tablet Active 50 mg PO TWICE A DAY January 04, 2018 12:00am calcium carbonate 1500 mg oral tablet (8 sources) Start: 01-04-2018 take 2 tablets by mouth once daily Calcium Carbonate 600 MG tablet Active 1200 mg PO DAILY January 04, 2018 12:00am Start: 01-04-2018 take 1200 mg by mouth once anderson ly Calcium Carbonate Active 1200 MG PO DAILY January 03, 2018 11:00pm estrogens, conjugated (detention) 0.625 mg/ml vaginal cream (7 sources) Estrogen Start: 06-28-2022 Conjugated Est rogens (Premarin) 0.625 mg/gram cream Active 0.625 mg VAGINAL .Q3DAYS June 28, 2022 12:00am Start: 06-28-2022 Conjugated Est rogens (Premarin) 0.625 mg/gram cream Active 0.625 MG VAGINAL ONCE June 28, 2022 12:00am L. Gasseri-B. Bifidum-B Longum (2 sources) Start: 01-04-2018 L. Gasseri-B. Bifidum-B Longum Active 1 EACH PO DAILY January 04, 2018 12:00am levothyroxine sodium 0.075 mg oral tablet (8 sources) l-Thyroxine Start: 01-04-2018 take 1 tablet by mouth once daily Levothyroxine 75 MCG tablet Active 75 ug PO DAILY January 04, 2018 12:00am lisinopril 10 mg oral tablet (8 sources) Angiotensin Converting Enzyme Inhibitor Start: 08-02-2021 take 1 tablet by mouth twice daily Lisinopril 10 mg Tablet Active 10 mg PO TWICE A DAY August 02, 2021 12:00am Start: 08-02-2021 take 10 mg by mouth once daily Lisinopril Active 10 MG PO DAILY August 02, 2021 12:00am Koelheuxvjcn-Vnba-Unorj Acid (Centrum Women) 18-400 mg-mcg Tablet (6 sources) Start: 08-29-2022 Multivitamin-I abhijit-Folic Acid (Centrum Women) 18-400 mg-mcg Tablet Active 1 {tbl} PO DAILY August 29, 2022 1:00am Start: 08-29-2022 take 1 tablet by laura th once daily Pkfvxaonolsp-Dyel-Gnswz Acid (Centrum Women) 18-400 mg-mcg Tablet Active 1 TABLET PO DAILY August 29, 2022 1:00am Start: 08-29-2022 take 1 tablet by laura th once daily Ysqphlvzirok-Eafh-Zangb Acid (Centrum Women) 18-400 mg-mcg Tablet Active 1 TABLET PO DAILY August 29, 2022 12:00am ondansetron 8 mg oral tablet (10 sources) Serotonin-3 Receptor Antagonist Start: 08-09-2021 take 8 mg by mouth every eight hours as needed Ondansetron Hcl Active 8 MG PO EVERY 8 HOURS NEEDED 20 August 09, 2021 12:00am Start: 01-04-2018 take 1 tablet by laura th every eight hours as needed for nausea Ondansetron 4 MG tablet Active 4 mg PO EVERY 8 HOURS NEEDED as needed for Nausea January 04, 2018 12:00am sulfamethoxazole 800 mg / trimethoprim 160 mg oral tablet (2 sources) Dihydrofolate Reductase Inhibitor Antibacterial, Sulfonamide Antimicrobial Start: 08-09-2021 take 1 tablet by mouth twice daily Sulfamethoxazole-Trimethoprim Active 1 TABLET PO TWICE A DAY 6 August 09, 2021 12:00am triamcinolone acetonide 5 mg/ml topical cream (7 sources) Corticosteroid Start: 06-28-2022 Triamcinolone Acetonide 0.5 % cream Active 1 NMA TOPICAL DAILY NEEDED as needed for ECZEMA June 28, 2022 12:00am Completed/Discontinued Medications Medication Drug Class(es) Dates Sig (Normalized) Sig (Original) dicyclomine hydrochloride 20 mg oral tablet (8 sources) Anticholinergic Start: 01-04-2018 End: 06-28-2022 take 1 tablet by mouth four times daily as needed Dicyclomine 20 MG tablet Discontinued 20 mg PO 4 TIMES DAILY as needed for Irritable Bowel Syndrome January 04, 2018 12:00am June 28, 2022 9:09am Multivitamin Capsule (3 sources) Start: 08-02-2021 End: 06-28-2022 Multivitamin Capsule Discontinued 1 NMA PO DAILY August 02, 2021 12:00am June 28, 2022 9:10am Multivitamin preparation (5 sources) Start: 08-02-2021 End: 06-28-2022 take 1 capsule by mouth once daily Multivitamin Discontinued 1 CAP PO DAILY August 01, 2021 11:00pm June 28, 2022 8:10am Start: 08-02-2021 End: 06-28-2022 take 1 capsule by mouth once daily Multivitamin Discontinued 1 CAP PO DAILY August 02, 2021 12:00am June 28, 2022 9:10am Start: 08-02-2021 take 1 capsule by mo [facility] once daily Multivitamin Active 1 CAP PO DAILY August 02, 2021 12:00am predniSONE 20 mg oral tablet (8 sources) Start: 06-20-2021 End: 06-25-2021 take 2 tablets by mouth once daily Prednisone 20 mg tablet Discontinued 40 mg PO DAILY 07 20June 20, 2021 12:00am June 24, 2021 12:00am June 25, 2021 12:01am Start: 06-20-2021 End: 06-25-2021 take 40 mg by mouth once daily Prednisone Discontinued 40 MG PO DAILY 07 20June 19, 2021 11:00pm June 24, 2021 11:01pm raNITIdine 300 mg oral tablet (8 sources) Histamine-2 Receptor Antagonist Start: 01-04-2018 End: 03-14-2018 take 1 tablet by mouth once daily Ranitidine Hcl 300 MG tablet Discontinued 300 mg PO DAILY January 04, 2018 12:00am March 14, 2018 1:34pm WHEAT DEXTRIN (8 sources) Start: 08-02-2021 End: 06-28-2022 Wheat Dextrin 1 gram Tablet Discontinued 1 g PO DAILY August 02, 2021 12:00am June 28, 2022 9:11am Start: 08-02-2021 End: 06-28-2022 take 1 g by mouth once daily Wheat Dextrin Discontinue d 1 GM PO DAILY August 01, 2021 11:00pm June 28, 2022 8:11am Start: 08-02-2021 End: 06-28-2022 take 1 g by mouth once daily Wheat Dextrin Discontinue d 1 GM PO DAILY August 02, 2021 12:00am June 28, 2022 9:11am Start: 08-02-2021 take 1 g by mouth once daily W heat Dextrin Active 1 GM PO DAILY August 02, 2021 12:00am Problems Problem Classification Problem Date Documented Da te Episodic/Chronic Acute bronchitis (8 sources) Acute bronchitis; Translations: [Acute bronchitis, unspecified] 06-20-2021 Episodic Essential hypertension (1 source) Essential (primary) hypertension; Translations: [Essential (primary) hypertension] Onset: 02-25-2025 Chronic Nonmalignant breast conditions (1 source) Unspecified lump in the right breast, unspecified quadrant; Translations: [Unspecified lump in the right breast, unspecified quadrant] Onset: 03-22-2025 Episodic Nonspecific chest pain (1 source) Chest pain, unspecified; Translations: [Chest pain, unspecified] Onset: 03-20-2025 Episodic Other screening for suspected conditions (not mental disorders or infectious disease) (9 sources) Patient encounter status; Translations: [Encounter for screening for malignant neoplasm of colon] Onset: 03-11-2025 Episodic Prolapse 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 Khushboo Dudley MD Status: REG CLI Study: Breast Limited Unilateral Date of Exam: Exam# [id number] Ordering Dr: Khushboo Dudley MD PROCEDURE: BREAST LIMITED UNILATERAL 03/18/2025 REASON FOR EXAM: 70-year-old female presents for follow-up of the right breast finding on examination of 03/07/2025. No family history of breast cancer. TECHNIQUE: Targeted right breast ultrasound. COMPARISON: Mammogram 03/07/2025, 12/08/2023 and 07/04/2022 FINDINGS: Right breast ultrasound was targeted to the lower outer/central. Follow-up examination performed for the right breast mass visualized on examination of 03/07/2025. On the present examination, there is a cyst in the right breast at 7 o'clock 2 cm from the nipple measuring 1.3 x 1.0 x 0.7 cm. This is an appropriate correlate for the mammographic finding. US/Breast Limited Unilateral IMPRESSION: Impression: Benign right breast cyst. Birads: BI-RADS 2: BENIGN. RECOMMEND ANNUAL MAMMOGRAPHIC SCREENING. Reading Location: [facility] CC: Dr. Khushboo Dudley MD Flat Surfacer: Signed Normal [facility] Breast imaging reportOrdered By: Araceli Banerjee on 03-07-2025 Study report [facility] Imaging Services [address] [place] [address] SCRN MAMM (CAD)W/BILLY BILAT MR#: [id number] Acct: [id number] Name: GUMARO CARRASQUILLO Rep #: [id number] : 1955 F 70 From: Zofia Banerjee MD PCP: Dr. Khushboo Dudley MD Status: REG CLI Study:SCRN MAMM (CAD)W/BILLY BILAT Date of Exa m: 03/07/25 Exam# [id number] Ordering Dr: Scott Dudley MD EXAM: SCRN MAMM (CAD)W/BILLY BILAT 03/07/2025 CLINICAL HISTORY: F, Age 70 y/o , SCREENING TECHNIQUE: Bilateral screening digital breast tomosynthesis with 2D and 3D images. Computeraided detection. COMPARISON: Prior exam(s) dated 12/08/2023, 07/04/2022. FINDINGS: TISSUE DENSITY: The breast tissue is composed of scattered area of fibroglandular density. Bilateral Breast Mammographic Findings: There is a mass in the slightly lower central right breast at middle depth. No significant masses, calcifications or other abnormalities are identified in left breast. BI/SCRN MAMM (CAD)W/BILLY BILAT IMPRESSION: The mass in the slightly lower central right breast at middle depth requires further evaluation. Recommend diagnostic ultrasound of the right breast. Right Breast: BIRADS 0 Incomplete: Need additional imaging evaluation and/or prior mammograms for comparison.. Left Breast: BIRADS 1 NEGATIVE. OVERALL FINAL ASSESSMENT: BIRADS 0 Incomplete: Need additional imaging evaluation and/or prior mammograms for comparison.. RECOMMENDATION: Ultrasound. A letter with findings and recommendations will be mailed to the patient. Reading Location: [facility] CC: Dr. Khushboo Dudley MD ~ Flat Surfacer: Signed [facility] SCRN MAMM (CAD)W/BILLY BILATo n 03-07-2025 SCRN MAMM (CAD)W/BILLY BILAT [facility] Imaging Services [address] [place] [address] SCRN MAMM (CAD)W/BILLY BILAT MR#: [id number] Acct: [id number] Name: GUMARO CARRASQUILLO Rep #: [id number] : 1955 F 70 From: Araceli Banerjee MD PCP: Dr. Khushboo Dudley MD Status: REG CL Study: SCRN MAMM (CAD)W/BILLY BILAT Date of Exam: 02/14 01/07 Exam# [id number] Ordering Dr: Khushboo Dudley MD EXAM: SCRN MAMM (CAD)W/BILLY BILAT 03/07/2025 CLINICAL HISTORY: F, Age 70 y/o , SCREENING TECHNIQUE: Bilateral screening digital breast tomosynthesis with 2D and 3D images. Computer aided detection. COMPARISON: Prior exam(s) dated 12/08/2023, 07/04/2022. FINDINGS: TISSUE DENSITY: The breast tissue is composed of scattered area of fibroglandular density. Bilateral Breast Mammographic Findings: There is a mass in the slightly lower central right breast at middle depth. No significant masses, calcifications or other abnormalities are identified in left breast. BI/SCRN MAMM (CAD)W/BILLY BILAT IMPRESSION: The mass in the slightly lower central right breast at middle depth requires further evaluation. Recommend diagnostic ultrasound of the right breast. Right Breast: BIRADS 0 Incomplete: Need additional imaging evaluation and/or prior mammograms for comparison.. Left Breast: BIRADS 1 NEGATIVE. OVERALL FINAL ASSESSMENT: BIRADS 0 Incomplete: Need additional imaging evaluation and/or prior mammograms for comparison.. RECOMMENDATION: Ultrasound. A letter with findings and recommendations will be mailed to the patient. Reading Location: [facility] CC: Dr. Khushboo Dudley MD Flat Surfacer: Signed Normal [facility] Absolute lymphocyte countOrd ered By: Khushboo Dudley on 02-20-2025 Lymphocytes Auto (Unsp spec) [#/Vol] 1.47 10*3/uL 0.83-4.51 [facility] Absolute neutrophil countOrd ered By: Khushboo Dudley on 02-20-2025 Neutrophils (Bld) [#/Vol] 3.8 10*3/uL 2.0-7.7 [facility] Anion gap in Serum or Plasma Ordered By: Khushboo Dudley on 02-20-2025 Anion gap [Moles/Vol] 10 mmol/L 5-15 [facility] Automated lymphocyte count a s percentage of total leukocytesOrdered By: Khushboo Dudley on 02-20-2025 Lymphocytes/100 WBC Auto (Unsp spec) 24.7 % -41 [facility] BUN/creatinine ratioOrdered By: Khushboo Dudley on 02-20-2025 Urea nitrogen/Creatinine [Mass ratio] 14.9 mg/mg 10-20 [facility] Basophil percentageOrdered B y: Khushboo Dudley on 02-20-2025 Basophils/100 WBC (Bld) 0.5 % 0-1 [facility] Bilirubin, totalOrdered By: Khushboo Dudley on 02-20-2025 Bilirubin [Mass/Vol] 0.37 mg/dL 0.00-1.30 [facility] CBC W/Diff, Automatedon Absolute Lymph 1.47 X10 3/uL Normal 0.83-4.51 [facility] Comment on above: Performed By: #### L [id number], L503.7505, L500.4100, L100.0100, L500.4050 #### [facility] Laboratory [address] [place], [address] Absolute Neut 3.8 X10 3/uL Normal 2.0-7.7 [facility] Comment on above: Performed By: #### L [id number], L503.7505, L500.4100, L100.0100, L500.4050 #### [facility] [address] [place], [address] Basophils/100 WBC (Bld) 0.5 % Normal 0-1 [facility] Comment on above: Performed By: #### L 501.9520, L503.7505, L500.4100, L100.0100, L500.4050 #### [facility] [address] [place], [address] Eosinophils/100 WBC (Bld) 0.8 % Normal 0-5 [facility] Comment on above: Performed By: #### L 501.9520, L503.7505, L500.4100, L100.0100, L500.4050 #### [facility] [address] [place], [address] Erythrocyte distribution width (RBC) [Ratio] 12.7 % Normal 11.6-14.6 [facility] Comment on above: Performed By: #### L 501.9520, L503.7505, L500.4100, L100.0100, L500.4050 #### [facility] Laboratory [address] [place], [address] Hematocrit (Bld) [Volume fraction] 39.7 % Normal 37-47 [facility] Comment on above: Performed By: #### L 501.9520, L503.7505, L500.4100, L100.0100, L500.4050 #### [facility] [address] [place], [address] Hemoglobin (Bld) [Mass/Vol] 13.1 g/dL Normal 12.0-15.0 [facility] Comment on above: Performed By: #### L 501.9520, L503.7505, L500.4100, L100.0100, L500.4050 #### [facility] [address] [place], [address] IG% 0.200 Normal 0.0-0.9 [facility] Comment on above: Result Comment: IG% - Immature Granulocytes (promyelocytes, myelocytes and metamyelocytes) > 1% indicates that a LEFT SHIFT is Present. Performed By: #### L 501.9520, L503.7505, L500.4100, L100.0100, L500.4050 #### [facility] [address] [place], [address] Lymphocytes/100 WBC (Bld) 24.7 % Normal 19-41 [facility] Comment on above: Performed By: #### L 501.9520, L503.7505, L500.4100, L100.0100, L500.4050 #### [facility] [address] [place], [address] MCH (RBC) [Entitic mass] 32.1 pg High 27.0-32.0 [facility] Comment on above: Performed By: #### L 501.9520, L503.7505, L500.4100, L100.0100, L500.4050 #### [facility] [address] [place], [address] MCHC (RBC) [Mass/Vol] 33.0 g/dL Normal 32-36 [facility] Comment on above: Performed By: #### L 501.9520, L503.7505, L500.4100, L100.0100, L500.4050 #### [facility] [address] [place], [address] MCV (RBC) [Entitic vol] 97.3 fL Normal 81-99 [facility] Comment on above: Performed By: #### L 501.9520, L503.7505, L500.4100, L100.0100, L500.4050 #### [facility] [address] [place], [address] Monocytes/100 WBC (Bld) 9.4 % Normal 0-10 [facility] Comment on above: Performed By: #### L 501.9520, L503.7505, L500.4100, L100.0100, L500.4050 #### [facility] [address] [place], [address] Neutrophils/100 WBC (Bld) 64.4 % Normal 47-70 [facility] Comment on above: Performed By: #### L 501.9520, L503.7505, L500.4100, L100.0100, L500.4050 #### [facility] [address] [place], [address] Nucleated RBC (Bld) [#/Vol] 0 10*3/uL Normal 0-5 [facility] Comment on above: Performed By: #### L 501.9520, L503.7505, L500.4100, L100.0100, L500.4050 #### [facility] [address] [place], [address] Platelet mean volume (Bld) [Entitic vol] 10.5 fL Normal 6.2-12.0 [facility] Comment on above: Performed By: #### L 501.9520, L503.7505, L500.4100, L100.0100, L500.4050 #### [facility] [address] [place], [address] Platelets (Bld) [#/Vol] 140 10*3/uL Low 150-450 [facility] Comment on above: Performed By: #### L 501.9520, L503.7505, L500.4100, L100.0100, L500.4050 #### [facility] [address] [place], [address] RBC (Bld) [#/Vol] 4.08 10*6/uL Low 4.2-5.4 [facility] Comment on above: Performed By: #### L 501.9520, L503.7505, L500.4100, L100.0100, L500.4050 #### [facility] [address] [place], [address] RDW SD 45.8 fl High 35.1-43.9 [facility] Comment on above: Performed By: #### L 501.9520, L503.7505, L500.4100, L100.0100, L500.4050 #### [facility] [address] [place], [address] WBC (Bld) [#/Vol] 5.9 10*3/uL Normal 4.4-11.0 [facility] Comment on above: Performed By: #### L 501.9520, L503.7505, L500.4100, L100.0100, L500.4050 #### [facility] [address] [place], [address] Calculated very low density lipoprotein (VLDL) cholesterol measurementOrdered By: Khushboo Dudley on 02-20-2025 Calculated very low density lipoprotein (VLDL) cholesterol measurement 9 mg/dL 5-40 [facility] Carbon dioxide, total [Moles /volume] in Central venous bloodOrdered By: Khushboo Dudley on 02-20-2025 CO2 [Moles/Vol] 23.1 mmol/L 21.0-32.0 [facility] Chloride assayOrdered By: Hoang Dduley on 02-20-2025 Chloride [Moles/Vol] 107 mmol/L 98-108 [facility] Comprehensive Metabolic Prof ilon 02-20-2025 Albumin [Mass/Vol] 4.0 g/dL Normal 3.4-4.8 [facility] Comment on above: Performed By: #### L 501.9520, L503.7505, L500.4100, L100.0100, L500.4050 #### [facility] [address] [place], [address] Albumin/Globulin [Mass ratio] 1.2 {ratio} Normal 0.9-2.4 [facility] Comment on above: Performed By: #### L 501.9520, L503.7505, L500.4100, L100.0100, L500.4050 #### [facility] [address] [place], [address] ALK PHOS 81 U/L Normal 35-104 [facility] Comment on above: Performed By: #### L 501.9520, L503.7505, L500.4100, L100.0100, L500.4050 #### [facility] [address] [place], [address] ALT [Catalytic activity/Vol] 13 U/L Normal <=34 [facility] Comment on above: Performed By: #### L 501.9520, L503.7505, L500.4100, L100.0100, L500.4050 #### [facility] [address] [place], [address] AST [Catalytic activity/Vol] 22 U/L Normal <=31 [facility] Comment on above: Performed By: #### L 501.9520, L503.7505, L500.4100, L100.0100, L500.4050 #### [facility] [address] [place], [address] Bilirubin [Mass/Vol] 0.37 mg/dL Normal 0.00-1.30 [facility] Comment on above: Performed By: #### L 501.9520, L503.7505, L500.4100, L100.0100, L500.4050 #### [facility] [address] [place], [address] BUN/CRE 14.9 RATIO Normal 10-20 [facility] Comment on above: Performed By: #### L 501.9520, L503.7505, L500.4100, L100.0100, L500.4050 #### [facility] Laboratory [address] [place], [address] Calcium [Mass/Vol] 9.1 mg/dL Normal 7.6-11.0 [facility] Comment on above: Performed By: #### L 501.9520, L503.7505, L500.4100, L100.0100, L500.4050 #### [facility] [address] [place], [address] Chloride [Moles/Vol] 107 mmol/L Normal 98-108 [facility] Comment on above: Performed By: #### L 501.9520, L503.7505, L500.4100, L100.0100, L500.4050 #### [facility] [address] [place], [address] CO2 [Moles/Vol] 23.1 mmol/L Normal 21.0-32.0 [facility] Comment on above: Performed By: #### L 501.9520, L503.7505, L500.4100, L100.0100, L500.4050 #### [facility] [address] [place], [address] Creatinine [Mass/Vol] 0.85 mg/dL Normal 0.70-1.20 [facility] Comment on above: Performed By: #### L 501.9520, L503.7505, L500.4100, L100.0100, L500.4050 #### [facility] [address] [place], [address] GAP 10 Normal 5-15 [facility] Comment on above: Performed By: #### L 501.9520, L503.7505, L500.4100, L100.0100, L500.4050 #### [facility] [address] [place], [address] GFR/1.73 sq M.predicted among non-blacks MDRD (S/P/Bld) [Vol rate/Area] 73 mL/min/{1.73_m2} Normal >60 [facility] Comment on above: Result Comment: mL/m in/1.73m2 CKD-EPI Creatinine Equation (2020) Performed By: #### L 501.9520, L503.7505, L500.4100, L100.0100, L500.4050 #### [facility] [address] [place], [address] Globulin (S) [Mass/Vol] 3.2 g/dL Normal 2.2-4.2 [facility] Comment on above: Performed By: #### L 501.9520, L503.7505, L500.4100, L100.0100, L500.4050 #### [facility] [address] [place], [address] Glucose [Mass/Vol] 99 mg/dL Normal 70-99 [facility] Comment on above: Performed By: #### L 501.9520, L503.7505, L500.4100, L100.0100, L500.4050 #### [facility] [address] [place], [address] Potassium [Moles/Vol] 4.1 mmol/L Normal 3.3-5.1 [facility] Comment on above: Performed By: #### L 501.9520, L503.7505, L500.4100, L100.0100, L500.4050 #### [facility] [address] [place], [address] Sodium [Moles/Vol] 141 mmol/L Normal 133-145 [facility] Comment on above: Performed By: #### L 501.9520, L503.7505, L500.4100, L100.0100, L500.4050 #### [facility] [address] [place], [address] T PROT 7.2 g/dL Normal 5.9-8.4 [facility] Comment on above: Performed By: #### L 501.9520, L503.7505, L500.4100, L100.0100, L500.4050 #### [facility] [address] [place], [address] Urea nitrogen [Mass/Vol] 13 mg/dL Normal 4-19 [facility] Comment on above: Performed By: #### L 501.9520, L503.7505, L500.4100, L100.0100, L500.4050 #### [facility] [address] [place], [address] Eosinophil percentageOrdered By: Khushboo Dudley on 02-20-2025 Eosinophils/100 WBC (Bld) 0.8 % 0-5 [facility] Erythrocyte distribution wid th ratioOrdered By: Khushboo Dudley on 02-20-2025 Erythrocyte distribution width (RBC) [Ratio] 12.7 % 11.6-14.6 [facility] Erythrocyte distribution wid th standard deviationOrdered By: Khushboo Dudley on 02-20-2025 Erythrocyte distribution width (RBC) [Ratio] 45.8 fl High 35.1-43.9 [facility] Glomerular filtration rate ( GFR) estimation/1.73 sq m using serum, plasma, or whole bOrdered By: Khushboo Dudley on 02-20-2025 GFR/1.73 sq M.predicted among non-blacks MDRD (S/P/Bld) [Vol rate/Area] 73 mL/min/{1.73_m2} >60 [facility] Comment on above: mL/min/1.73m2 CKD-EP I Creatinine Equation (2020) Hematocrit Auto (Bld) [Volum e fraction]Ordered By: Khushboo Dudley on 02-20-2025 Hematocrit (Bld) [Volume fraction] 39.7 % 37-47 [facility] Hemoglobin measurementOrdere d By: Khushboo Dudley on 02-20-2025 Hemoglobin (Bld) [Mass/Vol] 13.1 g/dL 12.0-15.0 [facility] Immature granulocytes/100 WB C Auto (Bld)Ordered By: Khushboo Dudley on 02-20-2025 Immature granulocytes/100 WBC (Bld) 0.200 % 0.0-0.9 [facility] Comment on above: IG% - Immature Granu locytes (promyelocytes, myelocytes and metamyelocytes) > 1% indicates that a LEFT SHIFT is Present. L503.7505on 02-20-2025 Natriuretic peptide B (Bld) [Mass/Vol] 320 pg/mL Normal <=900 [facility] Comment on above: Result Comment: Hear t Failure Unlikely: < 300 pg/mL Heart Failure Likely < 50 Years: > 450 pg/mL 50-75 Years: > 900 pg/mL >75 Years: > 1800 pg/mL Performed By: #### L 501.9520, L503.7505, L500.4100, L100.0100, L500.4050 #### [facility] [address] [place], [address] LDL calc ser/plasOrdered By: Khushboo Dudley on 02-20-2025 Cholesterol in LDL [Mass/Vol] 123 mg/dL [facility] Comment on above: Iiocoqyylo=209-080 m g/dL & Higher Azew=626 mg/dL or greater Laboratory - Chemistry and C hemistry - challengeOrdered By: Khushboo Dudley on 02-20-2025 AST [Catalytic activity/Vol] 22 U/L <32 [facility] Lipid Profileon 02-20-2025 CHOL:HDL 3.33 Normal [facility] Comment on above: Performed By: #### L 501.9520, L503.7505, L500.4100, L100.0100, L500.4050 #### [facility] [address] [place], [address] Cholesterol [Mass/Vol] 188 mg/dL Normal <=200 [facility] Comment on above: Result Comment: Chol esterol level, Desirable <200 mg/dL Borderline high cholesterol 200-239 mg/dL High cholesterol >=240 mg/dL Recommendations of the NCEP Adult Treatment Panel for the following risk-cutoff thresholds for the [place] population. Performed By: #### L 501.9520, L503.7505, L500.4100, L100.0100, L500.4050 #### [facility] [address] [place], [address] Cholesterol in HDL [Mass/Vol] 57 mg/dL Normal [facility] Comment on above: Result Comment: Laila onal Cholesterol Education Program (NCEP) guidelines: <40 mg/dL: Low HDL-cholesterol (major risk factor for CHD) >= 60 mg/dL: High HDL-cholesterol (negative risk factor for CHD) HDL-cholesterol is affected by a number of factors, e.g. smoking, exercise, hormones, sex and age. Performed By: #### L 501.9520, L503.7505, L500.4100, L100.0100, L500.4050 #### [facility] [address] [place], [address] Cholesterol in LDL [Mass/Vol] 123 mg/dL Normal [facility] Comment on above: Result Comment: Bord lqysja=599-845 mg/dL Higher Jyjw=544 mg/dL or greater Performed By: #### L 501.9520, L503.7505, L500.4100, L100.0100, L500.4050 #### [facility] [address] [place], [address] Cholesterol in VLDL [Mass/Vol] 9 mg/dL Normal 5-40 [facility] Comment on above: Performed By: #### L 501.9520, L503.7505, L500.4100, L100.0100, L500.4050 #### [facility] [address] [place], [address] Triglyceride [Mass/Vol] 44 mg/dL Normal [facility] Comment on above: Result Comment: The drugs N-Acetylcysteine and Metamizole may falsely depress this assay. Normal range: <150 mg/dL Borderline High: 150-199 mg/dL High: 200-499 mg/dL Very High: >500 mg/dL Performed By: #### L 501.9520, L503.7505, L500.4100, L100.0100, L500.4050 #### [facility] [address] [place], [address] MCV (mean corpuscular volume ) determinationOrdered By: Khushboo Dudley on 02-20-2025 MCV (RBC) [Entitic vol] 97.3 fL 81-99 [facility] Mean corpuscular hemoglobin (MCH) determinationOrdered By: Khushboo Dudley on 02-20-2025 MCH (RBC) [Entitic mass] 32.1 pg High 27.0-32.0 [facility] Mean corpuscular hemoglobin concentration (MCHC) determinationOrdered By: Khushboo Dudley on 02-20-2025 MCHC (RBC) [Mass/Vol] 33.0 g/dL 32-36 [facility] Mean platelet volume determi nationOrdered By: Khushboo Dudley on 02-20-2025 Platelet mean volume (Bld) [Entitic vol] 10.5 fL 6.2-12.0 [facility] Monocyte percentageOrdered B y: Khushboo Dudley on 02-20-2025 Monocytes/100 WBC (Bld) 9.4 % 0-10 [facility] Natriuretic peptide.B prohor roland N-Terminal [Mass/volume] in Serum or PlasmaOrdered By: Khushboo Dudley on 02-20-2025 Natriuretic peptide.B prohormone N-Terminal [Mass/Vol] 320 pg/mL <900 [facility] Comment on above: Heart Failure Unlike ly: < 300 pg/mLHeart Failure Likely< 50 Years: > 450 pg/mL50-75 Years: > 900 pg/mL>75 Years: > 1800 pg/mL Neutrophil percentageOrdered By: Khushboo Dudley on 02-20-2025 Neutrophils/100 WBC (Bld) 64.4 % 47-70 [facility] Nucleated red blood cell per centageOrdered By: Khushboo Dudley on 02-20-2025 Nucleated RBC/100 WBC (Bld) [Ratio] 0 % 0-5 [facility] Platelet countOrdered By: Hoang Dudley on 02-20-2025 Platelets (Bld) [#/Vol] 140 10*3/uL Low 150-450 [facility] Potassium measurement (mass/ volume)Ordered By: Khushboo Dudley on 02-20-2025 Potassium (Unsp spec) [Mass/Vol] 4.1 mmol/L 3.3-5.1 [facility] RBC Auto (Bld) [#/Vol]Ordere d By: Khushboo Dudley on 02-20-2025 RBC (Bld) [#/Vol] 4.08 10*6/uL Low 4.2-5.4 [facility] Screening total cholesterol/ high density lipoprotein (HDL) cholesterol ratioOrdered By: Khushboo Dudley on 02-20-2025 Cholesterol.total/Cholest ryan in HDL [Mass ratio] 3.33 {ratio} [facility] Serum creatinine measurement (mass/volume)Ordered By: Khushboo Dudley on 02-20-2025 Creatinine [Mass/Vol] 0.85 mg/dL 0.70-1.20 [facility] Serum globulin measurementOr dered By: Khushboo Dudley on 02-20-2025 Globulin (S) [Mass/Vol] 3.2 g/dL 2.2-4.2 [facility] Serum glucose measurement (m ass/volume)Ordered By: Khushboo Dudley on 02-20-2025 Glucose [Mass/Vol] 99 mg/dL 70-99 [facility] Serum or plasma alanine scott otransferase (ALT) measurementOrdered By: Khushboo Dudley on 02-20-2025 ALT [Catalytic activity/Vol] 13 U/L <35 [facility] Serum or plasma albumin hema urement (mass/volume)Ordered By: Khushboo Dudley on 02-20-2025 Albumin [Mass/Vol] 4.0 g/dL 3.4-4.8 [facility] Serum or plasma albumin/glob ulin mass ratioOrdered By: Khushboo Dudley on 02-20-2025 Albumin/Globulin [Mass ratio] 1.2 {ratio} 0.9-2.4 [facility] Serum or plasma alkaline erlin sphatase measurementOrdered By: Khushboo Dudley on 02-20-2025 ALP [Catalytic activity/Vol] 81 U/L 35-104 [facility] Serum or plasma calcium hema urement (mass/volume)Ordered By: Khushboo Dudley on 02-20-2025 Calcium [Mass/Vol] 9.1 mg/dL 7.6-11.0 [facility] Serum or plasma cholesterol in HDL measurement (mass/volume)Ordered By: Khushboo Dudley on 02-20-2025 Cholesterol in HDL [Mass/Vol] 57 mg/dL >40 [facility] Comment on above: National Cholesterol Education Program (NCEP) guidelines:<40 mg/dL: Low HDL-cholesterol (major risk factor for CHD)>= 60 mg/dL: High HDL-cholesterol (negative risk factor for CHD)HDL-cholesterol is affected by a number of factors, e.g. smoking, exercise, hormones, sex and age. Serum or plasma cholesterol measurement (mass/volume)Ordered By: Khushboo Dudley on 02-20-2025 Cholesterol [Mass/Vol] 188 mg/dL <201 [facility] Comment on above: Cholesterol level, D esirable <200 mg/dLBorderline high cholesterol 200-239 mg/dLHigh cholesterol >=240 mg/dLRecommendations of the NCEP Adult Treatment Panel for the following risk-cutoff thresholds for the [place] population. Serum or plasma urea nitroge n measurement (mass/volume)Ordered By: Khushboo Dudley on 02-20-2025 Urea nitrogen [Mass/Vol] 13 mg/dL 4-19 [facility] Sodium levelOrdered By: Donnie Dudley on 02-20-2025 Sodium [Moles/Vol] 141 mmol/L 133-145 [facility] TSH DL <= 0.005 mIU/L QnOrde red By: Khushboo Dudley on 02-20-2025 TSH Qn 1.440 uIU/mL 0.300-4.200 [facility] Thyroid Stim Hormone (TSH)on 02-20-2025 TSH 1.440 uIU/mL Normal 0.300-4.200 [facility] Comment on above: Performed By: #### L 501.9520, L503.7505, L500.4100, L100.0100, L500.4050 #### [facility] [address] [place], [address] Total proteinOrdered By: Chandra Dudley on 02-20-2025 Protein [Mass/Vol] 7.2 g/dL 5.9-8.4 [facility] Triglycerides measurementOrd ered By: Khushboo Dudley on 02-20-2025 Triglyceride [Mass/Vol] 44 mg/dL <199 [facility] Comment on above: The drugs N-Acetylcy steine and Metamizole may falsely depress this assay. Normal range: <150 mg/dLBorderline High: 150-199 mg/dLHigh: 200-499 mg/dLVery High: >500 mg/dL White blood cell (WBC) count Ordered By: Khushboo Dudley on 02-20-2025 WBC (Bld) [#/Vol] 5.9 10*3/uL 4.4-11.0 [facility] CBC W/Diff, Automatedon 05-16 Absolute Lymph 1.29 X10 3/uL Normal 0.83-4.51 [facility] Comment on above: Performed By: #### L 500.4100, L501.9520, L500.4050, L100.0100 #### [facility] [address] [place], [address] Absolute Neut 3.3 X10 3/uL Normal 2.0-7.7 [facility] Comment on above: Performed By: #### L 500.4100, L501.9520, L500.4050, L100.0100 #### [facility] [address] [place], [address] Basophils/100 WBC (Bld) 0.6 % Normal 0-1 [facility] Comment on above: Performed By: #### L 500.4100, L501.9520, L500.4050, L100.0100 #### [facility] [address] [place], [address] Eosinophils/100 WBC (Bld) 1.3 % Normal 0-5 [facility] Comment on above: Performed By: #### L 500.4100, L501.9520, L500.4050, L100.0100 #### [facility] [address] [place], [address] Erythrocyte distribution width (RBC) [Ratio] 12.7 % Normal 11.6-14.6 [facility] Comment on above: Performed By: #### L 500.4100, L501.9520, L500.4050, L100.0100 #### [facility] [address] [place], [address] Hematocrit (Bld) [Volume fraction] 39.3 % Normal 37-47 [facility] Comment on above: Performed By: #### L 500.4100, L501.9520, L500.4050, L100.0100 #### [facility] [address] [place], [address] Hemoglobin (Bld) [Mass/Vol] 12.8 g/dL Normal 12.0-15.0 [facility] Comment on above: Performed By: #### L 500.4100, L501.9520, L500.4050, L100.0100 #### [facility] [address] [place], [address] IG% 0.400 Normal 0.0-0.9 [facility] Comment on above: Result Comment: IG% - Immature Granulocytes (promyelocytes, myelocytes and metamyelocytes) > 1% indicates that a LEFT SHIFT is Present. Performed By: #### L 500.4100, L501.9520, L500.4050, L100.0100 #### [facility] [address] [place], [address] Lymphocytes/100 WBC (Bld) 24.8 % Normal 19-41 [facility] Comment on above: Performed By: #### L 500.4100, L501.9520, L500.4050, L100.0100 #### [facility] [address] [place], [address] MCH (RBC) [Entitic mass] 31.8 pg Normal 27.0-32.0 [facility] Comment on above: Performed By: #### L 500.4100, L501.9520, L500.4050, L100.0100 #### [facility] [address] [place], [address] MCHC (RBC) [Mass/Vol] 32.6 g/dL Normal 32-36 [facility] Comment on above: Performed By: #### L 500.4100, L501.9520, L500.4050, L100.0100 #### [facility] [address] [place], [address] MCV (RBC) [Entitic vol] 97.8 fL Normal 81-99 [facility] Comment on above: Performed By: #### L 500.4100, L501.9520, L500.4050, L100.0100 #### [facility] [address] [place], [address] Monocytes/100 WBC (Bld) 9.4 % Normal 0-10 [facility] Comment on above: Performed By: #### L 500.4100, L501.9520, L500.4050, L100.0100 #### [facility] [address] [place], [address] Neutrophils/100 WBC (Bld) 63.5 % Normal 47-70 [facility] Comment on above: Performed By: #### L 500.4100, L501.9520, L500.4050, L100.0100 #### [facility] [address] [place], [address] Nucleated RBC (Bld) [#/Vol] 0 10*3/uL Normal 0-5 [facility] Comment on above: Performed By: #### L 500.4100, L501.9520, L500.4050, L100.0100 #### [facility] [address] [place], [address] Platelet mean volume (Bld) [Entitic vol] 10.3 fL Normal 6.2-12.0 [facility] Comment on above: Performed By: #### L 500.4100, L501.9520, L500.4050, L100.0100 #### [facility] [address] [place], [address] Platelets (Bld) [#/Vol] 133 10*3/uL Low 150-450 [facility] Comment on above: Performed By: #### L 500.4100, L501.9520, L500.4050, L100.0100 #### [facility] [address] [place], [address] RBC (Bld) [#/Vol] 4.02 10*6/uL Low 4.2-5.4 [facility] Comment on above: Performed By: #### L 500.4100, L501.9520, L500.4050, L100.0100 #### [facility] [address] [place], [address] RDW SD 45.3 fl High 35.1-43.9 [facility] Comment on above: Performed By: #### L 500.4100, L501.9520, L500.4050, L100.0100 #### [facility] [address] [place], [address] WBC (Bld) [#/Vol] 5.2 10*3/uL Normal 4.4-11.0 [facility] Comment on above: Performed By: #### L 500.4100, L501.9520, L500.4050, L100.0100 #### [facility] [address] [place], [address] Comprehensive Metabolic Prof [facility] 06-03-2024 Albumin [Mass/Vol] 3.3 g/dL Normal 3.2-5.0 [facility] Comment on above: Order Comment: CBCD Performed By: #### L 500.4100, L501.9520, L500.4050, L100.0100 #### [facility] [address] [place], [address] Albumin/Globulin [Mass ratio] 0.8 {ratio} Low 0.9-2.4 [facility] Comment on above: Order Comment: CBCD Performed By: #### L 500.4100, L501.9520, L500.4050, L100.0100 #### [facility] [address] [place], [address] ALK P 85 U/L Normal 45-117 [facility] Comment on above: Order Comment: CBCD Performed By: #### L 500.4100, L501.9520, L500.4050, L100.0100 #### [facility] [address] [place], [address] ALT [Catalytic activity/Vol] 21 U/L Normal 13-56 [facility] Comment on above: Order Comment: CBCD Performed By: #### L 500.4100, L501.9520, L500.4050, L100.0100 #### [facility] [address] [place], [address] AST [Catalytic activity/Vol] 15 U/L Normal 15-37 [facility] Comment on above: Order Comment: CBCD Performed By: #### L 500.4100, L501.9520, L500.4050, L100.0100 #### [facility] [address] [place], [address] Bilirubin [Mass/Vol] 0.40 mg/dL Normal 0.20-1.00 [facility] Comment on above: Order Comment: CBCD Result Comment: For patients on eltrombopag therapy, use of Dimension [place] TBIL is not recommended. Performed By: #### L 500.4100, L501.9520, L500.4050, L100.0100 #### [facility] [address] [place], [address] BUN/CRE 16.5 RATIO Normal 10-20 [facility] Comment on above: Order Comment: CBCD Performed By: #### L 500.4100, L501.9520, L500.4050, L100.0100 #### [facility] [address] [place], [address] CA,Total 8.6 mg/dL Normal 8.5-10.1 [facility] Comment on above: Order Comment: CBCD Performed By: #### L 500.4100, L501.9520, L500.4050, L100.0100 #### [facility] [address] [place], [address] Chloride [Moles/Vol] 110 mmol/L High 98-107 [facility] Comment on above: Order Comment: CBCD Performed By: #### L 500.4100, L501.9520, L500.4050, L100.0100 #### [facility] [address] [place], [address] CO2 [Moles/Vol] 27.0 mmol/L Normal 21.0-32.0 [facility] Comment on above: Order Comment: CBCD Performed By: #### L 500.4100, L501.9520, L500.4050, L100.0100 #### [facility] [address] [place], [address] Creatinine [Mass/Vol] 0.91 mg/dL Normal 0.55-1.02 [facility] Comment on above: Order Comment: CBCD Result Comment: The validity of the calculated GFR GFRAA in patients over 70 years has not been determined. Clinical correlation is essential. Performed By: #### L 500.4100, L501.9520, L500.4050, L100.0100 #### [facility] [address] [place], [address] EST GFR - AA 78 mL/min Normal >60 [facility] Comment on above: Order Comment: CBCD Result Comment: Afri can Marshallese GFR Calc Performed By: #### L 500.4100, L501.9520, L500.4050, L100.0100 #### [facility] Laboratory [address] [place], [address] GAP 3 Low 5-15 [facility] Comment on above: Order Comment: CBCD Performed By: #### L 500.4100, L501.9520, L500.4050, L100.0100 #### [facility] [address] [place], [address] GFR/1.73 sq M.predicted among non-blacks MDRD (S/P/Bld) [Vol rate/Area] 65 mL/min/{1.73_m2} Normal >60 [facility] Comment on above: Order Comment: CBCD Result Comment: Non- GFR Calc Performed By: #### L 500.4100, L501.9520, L500.4050, L100.0100 #### [facility] [address] [place], [address] Globulin (S) [Mass/Vol] 4.1 g/dL Normal 2.2-4.2 [facility] Comment on above: Order Comment: CBCD Performed By: #### L 500.4100, [id number], L500.4050, L100.0100 #### [facility] [address] [place], [address] Glucose [Mass/Vol] 107 mg/dL High 74-106 [facility] Comment on above: Order Comment: CBCD Result Comment: Fast ing Glucose result from 100 to 125 mg/dL suggests IMPAIRED HOMEOSTASIS per A.D.A. criteria. Performed By: #### L 500.4100, [id number], L500.4050, L100.0100 #### [facility] [address] [place], [address] Potassium [Moles/Vol] 4.2 mmol/L Normal 3.5-5.1 [facility] Comment on above: Order Comment: CBCD Performed By: #### L 500.4100, [id number], L500.4050, L100.0100 #### [facility] [address] [place], [address] Sodium [Moles/Vol] 140 mmol/L Normal 136-145 [facility] Comment on above: Order Comment: CBCD Performed By: #### L 500.4100, [id number], L500.4050, L100.0100 #### [facility] [address] [place], [address] T PROT 7.4 g/dL Normal 6.4-8.2 [facility] Comment on above: Order Comment: CBCD Performed By: #### L 500.4100, [id number], L500.4050, L100.0100 #### [facility] [address] [place], [address] Urea nitrogen [Mass/Vol] 15 mg/dL Normal 7-18 [facility] Comment on above: Order Comment: CBCD Performed By: #### L 500.4100, [id number], L500.4050, L100.0100 #### [facility] [address] [place], [address] Lipid Profileon 06-03-2024 Cholesterol [Mass/Vol] 168 mg/dL Normal 200 [facility] Comment on above: Order Comment: CBCD Result Comment: <200 mg/dL Desirable 200-240 mg/dL Borderline >240 mg/dL High Risk Performed By: #### L 500.4100, [id number], L500.4050, L100.0100 #### [facility] [address] [place], [address] Cholesterol in HDL [Mass/Vol] 60 mg/dL Normal [facility] Comment on above: Order Comment: CBCD Result Comment: The drugs N-Acetylcysteine and Metamizole may falsely depress this assay. Reference Range HDL <40 mg/dL Low HDL Cholesterol HDL >or= 60 mg/dL High HDL Cholesterol Performed By: #### L 500.4100, [id number], L500.4050, L100.0100 #### [facility] [address] [place], [address] Cholesterol in LDL [Mass/Vol] 98 mg/dL Normal 0-130 [facility] Comment on above: Order Comment: CBCD Performed By: #### L 500.4100, [id number], L500.4050, L100.0100 #### [facility] [address] [place], [address] Cholesterol in VLDL [Mass/Vol] 10 mg/dL Normal 5-40 [facility] Comment on above: Order Comment: CBCD Performed By: #### L 500.4100, [id number], L500.4050, L100.0100 #### [facility] [address] [place], [address] Triglyceride [Mass/Vol] 48 mg/dL Normal [facility] Comment on above: Order Comment: CBCD Result Comment: The drugs N-Acetylcysteine and Metamizole may falsely depress this assay. Serum Triglycerides Reference Interval Normal <150 mg/dL Borderline high 150 - 199 mg/dL High 200 - 499 mg/dL Very High > or = 500 mg/dL Performed By: #### L 500.4100, [id number], L500.4050, L100.0100 #### [facility] [address] [place], [address] Thyroid Stim Hormone (TSH)on 06-03-2024 TSH 1.540 uIU/mL Normal 0.358-3.740 [facility] Comment on above: Order Comment: CBCD Performed By: #### L 500.4100, [id number], L500.4050, L100.0100 #### [facility] [address] [place], [address] Absolute lymphocyte countOrd ered By: Khushboo Dudley on 06-15-2023 Lymphocytes Auto (Unsp spec) [#/Vol] 1.30 10*3/uL 0.83-4.51 [facility] Basophil percentageOrdered B y: Khushboo Dudley on 06-15-2023 Basophils/100 WBC (Bld) 0.6 % 0-1 [facility] Bilirubin [Mass/Vol] 0.30 mg/dL 0.20-1.00 [facility] Comment on above: For patients on eltr ombopag therapy, use of Dimension Germfask TBIL is not recommended. Chloride [Moles/Vol] 109 mmol/L 98-107 [facility] Cholesterol [Mass/Vol] 160 mg/dL <200 [facility] Comment on above: <200 mg/dL Desirable 200-240 mg/dL Borderline >240 mg/dL High Risk Eosinophils/100 WBC (Bld) 2.3 % 0-5 [facility] Glucose [Mass/Vol] 87 mg/dL 74-106 [facility] Neutrophils (Bld) [#/Vol] 3.2 10*3/uL 2.0-7.7 [facility] Neutrophils/100 WBC (Bld) 61.8 % 47-70 [facility] Potassium [Moles/Vol] 4.3 mmol/L 3.5-5.1 [facility] Protein [Mass/Vol] 7.2 g/dL 6.4-8.2 [facility] Sodium [Moles/Vol] 140 mmol/L 136-145 [facility] Triglyceride [Mass/Vol] 49 mg/dL <199 [facility] Comment on above: The drugs N-Acetylcy steine and Metamizole may falsely depress this assay.Serum Triglycerides Reference Interval Normal <150 mg/dL Borderline high 150 - 199 mg/dL High 200 - 499 mg/dL Very High > or = 500 mg/dL WBC (Bld) [#/Vol] 5.2 10*3/uL 4.4-11.0 [facility] Blood erythrocytes count (nu mber/volume)Ordered By: Khushboo Dudley on 06-15-2023 RBC (Bld) [#/Vol] 3.89 10*6/uL 4.2-5.4 [facility] Blood hemoglobin measurement (mass/volume)Ordered By: Khushboo Dudley on 06-15-2023 Hemoglobin (Bld) [Mass/Vol] 12.4 g/dL 12.0-15.0 [facility] Blood lymphocytes/100 leukoc ytesOrdered By: Khushboo Dudley on 06-15-2023 Lymphocytes/100 WBC (Bld) 24.8 % 19-41 [facility] Blood monocytes/100 leukocyt esOrdered By: Khushboo Dduley on 06-15-2023 Monocytes/100 WBC (Bld) 10.3 % 0-10 [facility] Blood platelet mean volumeOr dered By: Khushboo Dudley on 06-15-2023 Platelet mean volume (Bld) [Entitic vol] 10.5 fL 6.2-12.0 [facility] Determination of erythrocyte mean corpuscular volume (MCV)Ordered By: Khushboo Dudley on 06-15-2023 MCV (RBC) [Entitic vol] 99.5 fL 81-99 [facility] Hematocrit Auto (Bld) [Volum e fraction]Ordered By: Khushboo Dudley on 06-15-2023 Hematocrit (Bld) [Volume fraction] 38.7 % 37-47 [facility] Laboratory - Chemistry and C hemistry - challengeOrdered By: Khushboo Dudley on 06-15-2023 ALP [Catalytic activity/Vol] 75 U/L 45-117 [facility] ALT [Catalytic activity/Vol] 23 U/L 13-56 [facility] CO2 [Moles/Vol] 25.0 mmol/L 21.0-32.0 [facility] Globulin (S) [Mass/Vol] 3.9 g/dL 2.2-4.2 [facility] Urea nitrogen/Creatinine [Mass ratio] 17.8 mg/mg 10-20 [facility] Laboratory - Hematology and Cell countsOrdered By: Khushboo Dudley on 06-15-2023 Erythrocyte distribution width (RBC) [Entitic vol] 47.9 fL 35.1-43.9 [facility] Erythrocyte distribution width (RBC) [Ratio] 13.1 % 11.6-14.6 [facility] Immature granulocytes/100 WBC (Bld) 0.200 % 0.0-0.9 [facility] Comment on above: IG% - Immature Granu locytes (promyelocytes, myelocytes and metamyelocytes) > 1% indicates that a LEFT SHIFT is Present. MCH (RBC) [Entitic mass] 31.9 pg 27.0-32.0 [facility] Nucleated RBC/100 WBC (Bld) [Ratio] 0 % 0-5 [facility] MCHC Auto (RBC) [Mass/Vol]Or dered By: Khushboo Dudley on 06-15-2023 MCHC (RBC) [Mass/Vol] 32.0 g/dL 32-36 [facility] No Panel InformationOrdered By: Khushboo Dudley on 06-15-2023 Estimated GFR (MDRD) Amer 86 mL/min >60 [facility] Comment on above: GFR Calc Estimated GFR (MDRD) Non-Af Amer 71 mL/min >60 [facility] Comment on above: Non- GFR Calc Thyroid Stimulating Hormone (TSH) 0.40 uIU/mL 0.358-3.74 [facility] Platelets bldOrdered By: Chandra Dudley on 06-15-2023 Platelets (Bld) [#/Vol] 129 10*3/uL 150-450 [facility] Serum or plasma albumin hema urement (mass/volume)Ordered By: Khushboo Dudley on 06-15-2023 Albumin [Mass/Vol] 3.3 g/dL 3.2-5.0 [facility] Serum or plasma albumin/glob ulin mass ratioOrdered By: Khushboo Dudley on 06-15-2023 Albumin/Globulin [Mass ratio] 0.8 {ratio} 0.9-2.4 [facility] Serum or plasma calcium hema urement (mass/volume)Ordered By: Khushboo Dduley on 06-15-2023 Calcium [Mass/Vol] 8.6 mg/dL 8.5-10.1 [facility] Serum or plasma cholesterol in HDL measurement (mass/volume)Ordered By: Khushboo Dudley on 06-15-2023 Cholesterol in HDL [Mass/Vol] 54 mg/dL >40 [facility] Comment on above: The drugs N-Acetylcy steine and Metamizole may falsely depress this assay. Reference Range HDL <40 mg/dL Low HDL Cholesterol HDL >or= 60 mg/dL High HDL Cholesterol Serum or plasma cholesterol in VLDL measurement (mass/volume)Ordered By: Khushboo Dudley on 06-15-2023 Cholesterol in VLDL [Mass/Vol] 10 mg/dL 5-40 [facility] Serum or plasma creatinine m easurement (mass/volume)Ordered By: Khushboo Dudley on 06-15-2023 Creatinine [Mass/Vol] 0.84 mg/dL 0.55-1.02 [facility] Comment on above: The validity of the calculated GFR & GFRAA in patients over 70 years has not been determined. Clinical correlation is essential. Serum or plasma low density lipoprotein (LDL) cholesterol measurement (mass/volume)Ordered By: Khushboo Dudley on 06-15-2023 Cholesterol in LDL [Mass/Vol] 96 mg/dL 0-130 [facility] Serum or plasma urea nitroge n measurement (mass/volume)Ordered By: Khushboo Dudley on 06-15-2023 Urea nitrogen [Mass/Vol] 15 mg/dL 7-18 [facility] Thin prep Papanicolaou smear with manual screeningOrdered By: Khushboo Dudley on 06-15-2023 Thin prep Papanicolaou smear with manual screening 18 U/L 15-37 [facility] Thin prep Papanicolaou smear with manual screening 6 5-15 [facility] Absolute lymphocyte counton 06-23-2022 Lymphocytes Auto (Unsp spec) [#/Vol] 1.50 10*3/uL 0.83-4.51 [facility] Work Phone: Basophil percentageon 2021 Basophils/100 WBC (Bld) 0.6 % 0-1 [facility] Work Phone: Bilirubin [Mass/Vol] 0.50 mg/dL 0.20-1.00 [facility] Work Phone: Comment on above: For patients on eltr ombopag therapy, use of Dimension Germfask TBIL is not recommended. Chloride [Moles/Vol] 110 mmol/L 98-107 [facility] Work Phone: Cholesterol [Mass/Vol] 185 mg/dL <200 [facility] Work Phone: Comment on above: <200 mg/dL Desirable 200-240 mg/dL Borderline >240 mg/dL High Risk Eosinophils/100 WBC (Bld) 1.9 % 0-5 [facility] Work Phone: Glucose [Mass/Vol] 93 mg/dL 74-106 [facility] Work Phone: [phone] Neutrophils (Bld) [#/Vol] 3.2 10*3/uL 2.0-7.7 [facility] Work Phone: [phone] Neutrophils/100 WBC (Bld) 60.9 % 47-70 [facility] Work Phone: [phone] Potassium [Moles/Vol] 3.9 mmol/L 3.5-5.1 [facility] Work [facility]: [phone] Protein [Mass/Vol] 7.5 g/dL 6.4-8.2 [facility] Work Phone: Sodium [Moles/Vol] 143 mmol/L 136-145 [facility] Work Phone: [phone] Triglyceride [Mass/Vol] 50 mg/dL <199 [facility] Work Phone: Comment on above: The drugs N-Acetylcy steine and Metamizole may falsely depress this assay.Serum Triglycerides Reference Interval Normal <150 mg/dL Borderline high 150 - 199 mg/dL High 200 - 499 mg/dL Very High > or = 500 mg/dL WBC (Bld) [#/Vol] 5.3 10*3/uL 4.4-11.0 [facility] Work Phone: [phone] Blood erythrocytes count (nu mber/volume)on 06-23-2022 RBC (Bld) [#/Vol] 3.99 10*6/uL 4.2-5.4 [facility]: Blood hemoglobin measurement (mass/volume)on 06-23-2022 Hemoglobin (Bld) [Mass/Vol] 13.1 g/dL 12.0-15.0 [facility] Work Phone: Blood lymphocytes/100 leukoc yteson 06-23-2022 Lymphocytes/100 WBC (Bld) 28.3 % 19-41 [facility] Work Phone: Blood monocytes/100 leukocyt eson 06-23-2022 Monocytes/100 WBC (Bld) 8.1 % 0-10 [facility] Work Phone: Blood platelet mean volumeon 06-23-2022 Platelet mean volume (Bld) [Entitic vol] 10.3 fL 6.2-12.0 [facility] Work Phone: Determination of erythrocyte mean corpuscular volume (MCV)on 06-23-2022 MCV (RBC) [Entitic vol] 98.2 fL 81-99 [facility] Work Phone: Hematocrit Auto (Bld) [Volum e fraction]on 06-23-2022 Hematocrit (Bld) [Volume fraction] 39.2 % 37-47 [facility] Work Phone: Laboratory - Chemistry and C hemistry - challengeon 06-23-2022 ALP [Catalytic activity/Vol] 75 U/L 45-117 [facility] Work Phone: ALT [Catalytic activity/Vol] 21 U/L 13-56 [facility] Work Phone: CO2 [Moles/Vol] 26.0 mmol/L 21.0-32.0 [facility] Work Phone: Globulin (S) [Mass/Vol] 4.1 g/dL 2.2-4.2 [facility] Work Phone: Urea nitrogen/Creatinine [Mass ratio] 13.8 mg/mg 10-20 [facility] Work Phone: Laboratory - Hematology and Cell countson 06-23-2022 Erythrocyte distribution width (RBC) [Entitic vol] 47.4 fL 35.1-43.9 [facility] Work Phone: Erythrocyte distribution width (RBC) [Ratio] 13.1 % 11.6-14.6 [facility] Work Phone: Immature granulocytes/100 WBC (Bld) 0.200 % 0.0-0.9 [facility] Work Phone: Comment on above: IG% - Immature Granu locytes (promyelocytes, myelocytes and metamyelocytes) > 1% indicates that a LEFT SHIFT is Present. MCH (RBC) [Entitic mass] 32.8 pg 27.0-32.0 [facility] Work Phone: Nucleated RBC/100 WBC (Bld) [Ratio] 0 % 0-5 [facility] Work Phone: MCHC Auto (RBC) [Mass/Vol]on 06-23-2022 MCHC (RBC) [Mass/Vol] 33.4 g/dL 32-36 [facility] Work Phone: No Panel Informationon 06-23 Estimated GFR (MDRD) Amer 92 mL/min >60 [facility] Work Phone: Comment on above: GFR Calc Estimated GFR (MDRD) Non-Af Amer 76 mL/min >60 [facility] Work Phone: Comment on above: Non- GFR Calc Thyroid Stimulating Hormone (TSH) 1.33 uIU/mL 0.358-3.74 [facility] Work Phone: Platelets bldon 06-23-2022 Platelets (Bld) [#/Vol] 140 10*3/uL 150-450 [facility] Work Phone: Serum or plasma albumin hema urement (mass/volume)on 06-23-2022 Albumin [Mass/Vol] 3.4 g/dL 3.2-5.0 [facility] Work Phone: Serum or plasma albumin/glob ulin mass ratioon 06-23-2022 Albumin/Globulin [Mass ratio] 0.8 {ratio} 0.9-2.4 [facility] Work Phone: Serum or plasma calcium hema urement (mass/volume)on 06-23-2022 Calcium [Mass/Vol] 8.7 mg/dL 8.5-10.1 [facility] Work Phone: Serum or plasma cholesterol in HDL measurement (mass/volume)on 06-23-2022 Cholesterol in HDL [Mass/Vol] 61 mg/dL >40 [facility] Work Phone: Comment on above: The drugs N-Acetylcy steine and Metamizole may falsely depress this assay. Reference Range HDL <40 mg/dL Low HDL Cholesterol HDL >or= 60 mg/dL High HDL Cholesterol Serum or plasma cholesterol in VLDL measurement (mass/volume)on 06-23-2022 Cholesterol in VLDL [Mass/Vol] 10 mg/dL 5-40 [facility] Work Phone: Serum or plasma creatinine m easurement (mass/volume)on 06-23-2022 Creatinine [Mass/Vol] 0.80 mg/dL 0.55-1.02 [facility] Work Phone: Comment on above: The validity of the calculated GFR & GFRAA in patients over 70 years has not been determined. Clinical correlation is essential. Serum or plasma low density lipoprotein (LDL) cholesterol measurement (mass/volume)on 06-23-2022 Cholesterol in LDL [Mass/Vol] 114 mg/dL 0-130 [facility] Work Phone: Serum or plasma urea nitroge n measurement (mass/volume)on 06-23-2022 Urea nitrogen [Mass/Vol] 11 mg/dL 7-18 [facility] Work Phone: Thin prep Papanicolaou smear with manual screeningon 06-23-2022 Thin prep Papanicolaou smear with manual screening 13 U/L 15-37 [facility] Work Phone: Thin prep Papanicolaou smear with manual screening 7 5-15 [facility] Work Phone: Vital Signs Date Time Vital Sign Value Performing Clinician Franklyni tellyy 09-01-2022 09:05-0500 Body temperature 98.6 [degF] Dr. Khushboo Dudley Work Phone: [facility] Work Phone: 09-01-2022 09:05-0500 Diastolic blood pressure 73 mm[Hg] Dr. Khushboo Dudley Work Phone: [facility] Work Phone: 09-01-2022 09:05-0500 Heart rate 64 /min Dr. Khushboo Dudley Work Phone: [facility] Work Phone: 09-01-2022 09:05-0500 Respiratory rate 18 /min Dr. Khushboo Dudley Work Phone: [facility] Work Phone: 09-01-2022 09:05-0500 SaO2% (BldA) [Mass fraction] 99 % Dr. Khushboo Dudley Work Phone: [facility] Work Phone: 09-01-2022 09:05-0500 Systolic blood pressure 129 mm[Hg] Dr. Khushboo Dudley Work Phone: [facility] Work Phone: 09-01-2022 07:38-0500 Body height 165.[address] Khushboo Dudley Work Phone: [facility] Work Phone: 09-01-2022 07:38-0500 Body mass index (BMI) [Ratio] 36.6 kg/m2 Dr. Khushboo Dudley Work Phone: [facility] Work Phone: 09-01-2022 07:38-0500 Body weight [address] Khushboo Dudley Work Phone: [facility] Work Phone: 06-28-2022 09:23-0400 Body height 165.[address] Khushboo Dudley Work Phone: [facility] Work Phone: 06-28-2022 09:23-0400 Body mass index (BMI) [Ratio] 36.9 kg/m2 Dr. Khushboo Dudley Work Phone: [facility] Work Phone: 06-28-2022 09:23-0400 Body weight 100.[address] Khushboo Dudley Work Phone: [facility] Work Phone: Encounters Encounter Date Encounter Type Care Provider Facility Start: 03-27-2025 ambulatory Khushboo Dudley Facility: [facility] Start: 03-18-2025 End: 03-18-[address] Khushboo Dudley MD Work Phone: [facility] Work Phone: Start: 03-18-2025 End: 03-18-[address] Khushboo Dudley [facility] Work Phone: Start: 03-18-2025 End: 03-18-2025 ambulatory Khushboo Dudley Facility:[facility] Start: 03-07-2025 End: 03-07-[address] Khushboo Dudley MD Work Phone: [facility] Work Phone: Start: 03-07-2025 End: 03-07-[address] Khushboo Dudley MD -Cardiovascular Services Work Phone: Start: 03-07-2025 End: 03-07-2025 ambulatory Khushboo Dudley Facility:[facility] Start: 02-20-2025 End: 02-20-[address] Khushboo Dudley MD Work Phone: [facility] Work Phone: Start: 02-20-2025 End: 02-20-[address] [facility] Start: 02-20-2025 End: 02-20-2025 ambulatory Khushboo Dudley Facility:[facility] Start: 06-03-2024 End: 06-03-2024 ambulatory Khushboo Dudley Facility:[facility] Start: 12-08-2023 End: 12-08-2023 ambulatory [facility] Work Phone: Start: 12-08-2023 End: 12-08-2023 Patient encounter procedure [facility] Work Phone: Start: 06-15-2023 End: 06-15-2023 ambulatory [facility] Work Phone: Start: 06-15-2023 End: 06-15-2023 Patient encounter procedure [facility] Start: 09-01-2022 Non-patient / Non-visit Dr. Hoang Dudley Work Phone: [facility] Start: 09-01-2022 End: 09-01-2022 Admission to same day surgery center Dr. Khushboo Dudley Work Phone: [facility]-Endoscopy Start: 09-01-2022 End: 09-01-[address] Khushboo Dudley Work Phone: [facility] Work Phone: Start: 07-04-2022 End: 07-04-[address] Khushboo Dudley Work Phone: [facility] Work Phone: Start: 07-04-2022 End: 07-04-[address] Khushboo Dudley Work Phone: [facility]-Outpatient Breast Imaging Start: 06-28-2022 Non-patient / Non-visit Dr. Hoang Dudley Work Phone: [facility] Start: 06-23-2022 End: 06-23-2022 ambulatory [facility] Work Phone: Start: 06-23-2022 End: 06-23-2022 Patient encounter procedure [facility] [place] Procedures Date Procedure Procedure Detail Performing Clinician Start: 03-18-[address] Khushboo Dudley MD Work Phone: Start: 03-07-2025 Screening mammography Ashley Dudley MD Work Phone: Start: 12-08-2023 Screening mammography Start: 09-01-[address] Khushboo Dudley Work Phone: Start: 07-04-2022 Screening mammography Ashley Dudley Work Phone: Plan of Treatment Date Care Activity Detail Author Start: 09-01-2022 Patient discharge [facility] Work Phone: Colonoscopy [facility] Work Phone: Patient referral [facility] Work Phone: Payers Date Payer Category Payer Medicare [id number] 2024 Self-pay [id number] 2024 Unknown [id number] Unknown [id number] Unknown [id number] Unknown [id number] Unknown [id number] Unknown [id number] Social History Date Type Detail Facility Start: 08-02-2021 End: 08-29-2022 Tobacco smoking status NHIS Unknown if ever smoked [facility] Start: 03-14-2018 Cigarettes [facility] Start: 1955 Sex Assigned At Female W [facility] Start: 08-29-2022 Tobacco smoking stat us CTIS Ex-smoker (finding) [facility] Medical Equipment Procedure Code Equipment Code Equipment Origin al Text Equipment Identifier Dates MESH, AXIS DERMIS FDA Start: 08-09-2021 MESH, AXIS DERMIS FDA Start: 08-09-2021 MESH, AXIS DERMIS FDA Start: 08-09-2021 MESH, AXIS DERMIS FDA Start: 08-09-2021 MESH, AXIS DERMIS FDA Start: 08-09-2021 MESH, AXIS DERMIS FDA Start: 08-09-2021 MESH, AXIS DERMIS FDA Start: 08-09-2021 MESH, AXIS DERMIS FDA Start: 08-09-2021 Goals Date Patient Goal Desired Activity /State Mental Status Date Assessment Result Facility 09-01-2022 Cognitive function Level Of Consciousness Awake [facility] Work Phone: Radiology Diagnostic study note 03-19-2025 Note Date & Type Note Facility 03-19-2025 Radiology Diagnostic study note [facility] Imaging Services [address], [place] [address] Breast Limited Unilateral MR#: [id number] Acct: [id number] Name: GUMARO CARRASQUILLO Rep #: [id number] F 70 From: Zofia Banerjee MD PCP: Dr. Khushboo Dudley MD Status: REG CLI Study:Breast Limited Unilateral Date of Exam: 03/18/25 Exam# [id number] Ordering Dr: Scott Dudley MD PROCEDURE: BREAST LIMITED UNILATERAL 03/18/2025 REASON FOR EXAM: 70-year-old female presents for follow-up of the right breast finding on examination of 03/07/2025. No family history of breast cancer. TECHNIQUE: Targeted right breast ultrasound. COMPARISON: Mammogram 03/07/2025, 12/08/2023 and 07/04/2022 FINDINGS: Right breast ultrasound was targeted to the lower outer/central. Follow-up examination performed for the right breast mass visualized on examination of 03/07/2025. On the present examination, there is a cyst in the right breast at 7 o'clock 2 cm from the nipple measuring 1.3 x 1.0 x 0.7 cm. This is an appropriate correlate for the mammographic finding. US/Breast Limited Unilateral IMPRESSION: Impression: Benign right breast cyst. Birads: BI-RADS 2: BENIGN. RECOMMEND ANNUAL MAMMOGRAPHIC SCREENING. Reading Location: [id number] CC: Dr. Khushboo Dudley MD ~ Flat Surfacer: Signed [facility] Evaluation note Note Date & Type Note Facility Evaluation note No assessment information availa ble [facility] Work Phone: Evaluation note Note Date & Type Note Facility Evaluation note Diagnosis Onset Date Encounter for screening for malignant neoplasm of colon acute [facility] Work Phone: Reason for referral (narrative) Note Date & Type Note Facility Reason for referral (narrative) No reason for referral information available [facility] Work Phone: Family History No Family History Records Found Relationship Condition Age at Onset Recorded Date/T tutu mother Malignant neoplasm Unknown Diabetes mellitus Unknown father Hypertension Unknown brother Diabetes mellitus Unknown Relationship Condition Age at Onset Recorded Date/T tutu mother Malignant neoplasm Unknown Diabetes mellitus Unknown Polyp of colon Unknown father Hypertension Unknown brother Diabetes mellitus Unknown Advance Directives No Advanced Directives Records Found Advance Directive Response Recorded Date/ Time Living Will Yes August 09 7:00pm Power of Septic Tank Cleaner Yes August 09, 2021 7:00pm Advance Directive Response Recorded Date/ Time Name of Medical Power of Septic Tank Cleaner SPOUSE August 29, 2022 4:00pm Living Will Yes August 29, 022 4:00pm Power of Septic Tank Cleaner Yes August 29, 2022 4:00pm Advance Directive Response Recorded Date/ Time Living Will Yes August 29, 022 5:00pm Power of Septic Tank Cleaner Yes August 29, 2022 5:00pm Advance Directive Response Recorded Date/ Time Living Will Yes August 29, 022 4:00pm Power of Septic Tank Cleaner Yes August 29, 2022 4:00pm Chief Complaint and Reason for Visit Chief Complaint Amb Documentation SCREENING Chief Complaint Amb Documentation SCREENING Reason for Visit Encounter for screen ing for malignant neoplasm of colon Chief Complaint SCREENING Chief Complaint Admit Date SCREENING; CHEST PAIN March 07, 2025 12: 54pm Chief Complaint Admit Date SCREENING; CHEST PAIN March 07, 2025 12: 54pm ABN MAMM RT BREAST March 18, 2025 9:20a m Summary Purpose Additional Source Comments Goals (unrecognized section and content) Goals may be documented in a n alternate sectionGoals may be documented in an alternate sectionGoals may be documented in an alternate sectionGoals may be documented in an alternate sectionGoals may be documented in an alternate sectionGoals may be documented in an alternate sectionGoals may be documented in an alternate section Care Teams (unrecognized sec tion and content) Team Status: Active Member Role Status Dates Dr. Khushboo Dudley MD Primary Care Provider Active Team Status: Inactive Member Role Status Dates Dr. Khushboo Dudley MD Primary Care Prov ider, Attending Provider, Referring Provider Active Team Status: Inactive Member Role Status Dates Dr. Khushboo Dudley MD Primary Care Provider Active Start: February 20, 2025 End: February 20, 2025 Dr. Khushboo Dudley MD Attending Provider Active Start: February 20, 2025 End: February 20, 2025 Dr. Khushboo Dudley MD Referring Provider Active Start: February 20, 2025 End: February 20, 2025 Team Status: Inactive Member Role Status Dates Dr. Khushboo Dudley MD Primary Care Provider Active Start: March 07, 2025 End: March 07, 2025 Dr. Khushboo Dudley MD Attending Provider Active Start: March 07, 2025 End: March 07, 2025 Dr. Khushboo Dudley MD Referring Provider Active Start: March 07, 2025 End: March 07, 2025 Team Status: Inactive Member Role Status Dates Dr. Khushboo Dudley MD Primary Care Provider Active Start: March 18, 2025 End: March 18, 2025 Dr. Khushboo Dudley MD Attending Provider Active Start: March 18, 2025 End: March 18, 2025 Dr. Khushboo Dudley MD Referring Provider Active Start: March 18, 2025 End: March 18, 2025 INFORMATION SOURCE (unrecogn ized section and content) DATE CREATED AUTHOR 03/23/2025 [facility] FOR RECORDS PERTAINING TO PATIENTS WHO ARE OR HAVE BEEN ENROLLED IN A CHEMICAL DEPENDENCY/SUBSTANCEABUSE PROGRAM, SOME INFORMATION MAY BE OMITTED. This clinical summary was aggregated from multiple sources. Caution should be exercised in using it in the provision of clinical care. This summary normalizes information from multiple sources, and as a consequence, information in this document may materially change the coding, format and clinical context of patient data. In addition, data may be omitted in some cases. CLINICAL DECISIONS SHOULD BE BASED ON THE PRIMARY CLINICAL RECORDS. [employer] provides no warranty or guarantee of the accuracy or completeness of information in this document.
--- NOTE | 2025-03-27 13:35 | STRESSREP ---
Stress Test Report Date: 03/27/2025 Procedure: Pharmacologic stress nuclear imaging study Indications: Chest pain Consent: Per the patient Procedure: The patient underwent pharmacologic (Regadenoson 0.4mg ) evaluation with a peak heart rate of 78 beats per minute (52%predicted maximal heart rate) and a peak blood pressure of 158/80 mmHg. The baseline ECG demonstrated sinus rhythm with left bundle branch block. The peak pharmacologic ECG was nondiagnostic secondary to baseline abnormality. There were no cardiac dysrhythmias pretest, during pharmacologic infusion, or recovery. There was no complaint of chest discomfort during pharmacologic infusion or recovery. The patient was injected with 14.3 millicuries of technetium 99m Cardiolite and subsequently rest SPECT Cardiolite nuclear imaging was obtained in the horizontal long, vertical long, and short axis views. The patient underwent pharmacologic (Regadenoson) evaluation. The patient was injected with 44.7 millicuries of technetium 99m Cardiolite and subsequently stress SPECT Cardiolite nuclear imaging was obtained in the horizontal long, vertical long, and short axis views. A gated Cardiolite study at peak stress was obtained. The examination was stopped secondary to completion of protocol. Rest and stress SPECT Cardiolite nuclear imaging status post realignment, normalization, and attenuation correction demonstrate mildly reduced perfusion of the anterior wall post pharmacological stress, suggestive of mild ischemia. There is end systolic thickening and brightening. The gated Cardiolite study demonstrates myocardial thickening and inward wall motion. The reported LVEF is 70%. Impression: 1. Pharmacologic (Regadenoson) evaluation 2. Peak pharmacologic ECG with no diagnostic changes secondary to baseline abnormality. 3. There were no cardiac dysrhythmias pretest, during pharmacologic infusion, or recovery. 5. Mildly reduced perfusion of the anterior wall post pharmacological stress, suggestive of mild anterior wall ischemia. 6. The gated Cardiolite study reports an LVEF of 70%. This note was generated with [employer] software. It may contain incorrect words, spelling, and punctuation that were not noted in checking the note before signing.
== END | disposition home or self-care (01) ==
LOC: CVS 06:22
PROVIDERS: PCP Family Medicine; Referring Provider Family Medicine; Visit Provider Family Medicine
DX: R07.9 Chest pain, unspecified (principal); I44.7 Left bundle-branch block, unspecified
CPT/HCPCS: 78452; 93017; A9500; A4216; J2785

== ENCOUNTER 2025-03-28 14:21 | Inpatient (IN) | payer MEDICARE, OTHER, SELFPAY ==
[2025-03-28] VITALS (26 sets, daily range): BP systolic 111–166; BP diastolic 54–96; PULSE 50–98; RESP 12–23; TEMP 36.5–36.9; O2SAT 96–100; BMI 37.2; BMI 37.0
--- NOTE | 2025-03-28 14:47 | ED.VIS.CHEST ---
HPI History of Present Illness Chief Complaint: Chest Pain Informant: patient and spouse/S.O. Narrative Narrative: Recurrent chest heaviness waking her 6 AM this morning is a lot heavier and worse this morning so down to a 3 new symptoms of nausea. No dyspnea no radicular symptoms no arm weakness. She states been having on and off symptoms for past years been more frequent saw her PCP and outpatient stress test yesterday here. She is called today states there were some abnormalities to the anterior wall and she is being referred to cardiology. PCP did not know if her chest symptoms today. Hypertension hyperlipidemia. Denies diabetes denies family history of MIs at young age. Remote tobacco. Does not take chronic aspirin. Currently nausea subsided. Discussion I saw her EKG showed that she has a known left bundle branch block from 2018. Prior Similar Symptoms: Yes CVD Risk Factors: Positive for Hypertension and Hypercholesterolemia; Negative for Diabetes, Family History 1' </=55 or Smoking PE Risk Factors: Negative for Recent Travel/Surgery, Recent Immobilization, Prior DVT or PE, Cancer or OCP + Smoking + >/=35 PFSH PFSH Medical History (Updated 03/28/25 @ 23:[address] Davey Bosch, DO) Diverticulosis Chest pain Vaginal vault prolapse Cystocele, midline Wears glasses Bladder disease Anemia Restless legs History of diverticulosis History of IBS Heartburn Former smoker History of edema History of stress test Fibromyalgia Diverticulosis HTN (hypertension) Hypothyroidism Diarrhea Epigastric pain Home Medications ?Medication ?Instructions ?Recorded ?Last Taken ?Type atenolol 50 mg tablet 50 mg PO BID hypertension 01/04/18 03/28/25 07:00 History 50 mg calcium carbonate 600 mg PO DAILY supplement 01/04/18 Unknown History levothyroxine 75 mcg tablet 75 mcg PO DAILY hypothyroid 01/04/18 03/28/25 07:00 History 75 mcg conjugated estrogens 0.625 mg/gram 0.625 mg vaginal .Q3DAYS prevention 06/28/22 Unknown History vaginal cream (Premarin) triamcinolone acetonide 0.5 % 1 applic topical DAILY PRN PRN 06/28/22 Unknown History topical cream ECZEMA docusate sodium 50 mg capsule 100 mg PO PRN constipation 03/28/25 Unknown History (Colace Clear) losartan 50 mg tablet 50 mg PO DAILY hypertension 03/28/25 03/28/25 08:00 History 50 mg multivitamin with minerals-folic 1 tab PO DAILY supplement 03/28/25 03/28/25 07:00 History acid 0.4 mg tablet (One Daily 1 TAB Womens 50 Plus) ondansetron HCl 4 mg tablet 4 mg PO Q8H PRN PRN nausea and 03/28/25 Unknown History vomiting Allergy/AdvReac Type Severity Reaction Status Date / Time cefaclor ([facility]) Allergy Hives Verified 03/28/25 14:25 latex Allergy Rash Verified 03/28/25 14:25 Family History Mother Cancer lung Diabetes Colon polyps Father Hypertension Brother Diabetes Colon polyps Surgical History History of bladder suspension procedure History of esophagogastroduodenoscopy (EGD) Status post hysteroscopic myomectomy Infected cyst of Bartholin's gland duct Status post lymph node biopsy S/P cataract extraction S/P hysterectomy S/P rotator cuff repair H/O section S/P colonoscopy S/P laparoscopic cholecystectomy Status post dilation and curettage Social History Smoking Status: Former smoker ROS ROS ED Constitutional Constitutional ED: Denies chills, fever(s) or sweats ENT ENT ED: Denies sore throat Cardiovascular Cardiovascular: Reports chest pain; Denies leg edema, palpitations or racing heartbeat Respiratory/Chest Respiratory/Chest: Denies cough, dyspnea or dyspnea on exertion Gastrointestinal Gastrointestinal: Reports nausea; Denies abdominal pain, diarrhea or vomiting Genitourinary Genitourinary ED: Denies dysuria, hematuria or urinary frequency Musculoskeletal Musculoskeletal: Denies back pain, extremity pain or neck pain Integumentary Denies rash or wounds Neurologic Neurologic: Denies headache(s), paresthesias or weakness EXAM Physical Exam Const Vital Signs: 03/28/25 14:23 03/28/25 14:59 03/28/25 15:02 Temperature 98 F Temperature Source Oral Pulse Rate 98 56 L Respiratory Rate 16 Respiratory Effort Respiratory Pattern Blood Pressure 166/71 H 156/96 H Blood Pressure Mean 102 Pulse Ox 98 Oxygen Delivery Method Room Air Room Air 03/28/25 15:02 03/28/25 15:38 03/28/25 15:45 Temperature Temperature Source Pulse Rate 58 L 56 L Respiratory Rate 14 16 Respiratory Effort Normal Respiratory Pattern Normal Blood Pressure Blood Pressure Mean Pulse Ox 100 100 Oxygen Delivery Method 03/28/25 15:55 03/28/25 16:00 03/28/25 16:00 Temperature Temperature Source Pulse Rate 54 L 56 L 57 L Respiratory Rate 16 15 Respiratory Effort Respiratory Pattern Blood Pressure 129/73 H 131/72 H 131/72 H Blood Pressure Mean 91 90 Pulse Ox 100 99 Oxygen Delivery Method Room Air Room Air 03/28/25 16:05 03/28/25 16:10 03/28/25 16:15 Temperature Temperature Source Pulse Rate 52 L 57 L 58 L Respiratory Rate 12 16 17 Respiratory Effort Respiratory Pattern Blood Pressure 125/57 H 118/63 111/66 Blood Pressure Mean 76 78 80 Pulse Ox 100 98 98 Oxygen Delivery Method 03/28/25 16:20 03/28/25 16:25 03/28/25 16:30 Temperature Temperature Source Pulse Rate 57 L 52 L 51 L Respiratory Rate 13 17 20 H Respiratory Effort Respiratory Pattern Blood Pressure 115/62 127/54 H 119/54 L Blood Pressure Mean 77 72 73 Pulse Ox 97 98 98 Oxygen Delivery Method Room Air 03/28/25 16:35 03/28/25 16:40 03/28/25 16:45 Temperature Temperature Source Pulse Rate 52 L 50 L 51 L Respiratory Rate 14 15 14 Respiratory Effort Respiratory Pattern Blood Pressure 113/57 L 120/79 130/59 H Blood Pressure Mean 73 93 81 Pulse Ox 99 99 99 Oxygen Delivery Method 03/28/25 16:50 03/28/25 16:55 03/28/25 17:15 Temperature Temperature Source Pulse Rate 54 L 51 L Respiratory Rate 21 H 18 Respiratory Effort Respiratory Pattern Blood Pressure 122/60 H 127/62 H Blood Pressure Mean 79 81 Pulse Ox 99 100 Oxygen Delivery Method 03/28/25 17:16 03/28/25 17:18 03/28/25 17:23 Temperature Temperature Source Pulse Rate 53 L 52 L 56 L Respiratory Rate 23 H Respiratory Effort Respiratory Pattern Blood Pressure 123/81 H 123/81 H 117/60 Blood Pressure Mean 95 Pulse Ox 98 Oxygen Delivery Method Room Air Positive well nourished and well developed General Appearance ED: well developed and NAD HEENT Reports moist mucous membranes normocephalic and atraumatic Eyes General Eye ED: Yes normal appearance of both eyes Neck full ROM Chest Wall Chest: Negative for tenderness Resp normal respiratory effort and normal air movement Effort and Inspection: symmetric chest movement; Negative for respiratory distress Cardio regular rate, regular rhythm and no murmurs Peripheral Pulses: pulses 2+ throughout GI normal to inspection, nondistended, normoactive bowel sounds and non-tender Palpation: Negative for guarding or rebound tenderness present Extremity normal to inspection General Extremety ED: Negative for edema or tenderness General Extremity: Negative for edema Neuro oriented x3 and no sensory deficits noted Sensorium / Orientation: awake and alert Skin no rashes or lesions noted and no wounds Heart Score History: Moderately Suspicious Age: >/= 65 years Risk Factors: 1 or 2 Risk Factors Troponin: </= Normal Limit Score: 4 MDM MDM MDM Narrative Medical decision making narrative: Interventions / MDM: Differential diagnosis: Angina, chest pain, abnormal stress test Diagnosis considered but do not suspect: N/A My EKG interpretation: Sinus rate of 56, no ST changes.T wave version aVL nonspecific. Left bundle branch block. Patient compared to the July 2021 normal EKG with no left bundle branch block however December 2017 had a left bundle branch block. Imaging independently reviewed and interpreted by myself: 1 view chest x-ray External documents reviewed: Nuclear stress test from yesterday mild anterior wall ischemic concerns. EF of 70%. Test considered but not ordered:N/A ED course: Patient recurrent chest heaviness worsening today had abnormal stress test yesterday. Cardiac workup initiated aspirin ordered nitroglycerin sublingual. Patient EKG left bundle branch block that is recurrent from 2018 she had 2 normal EKGs in between. 1425: I spoke with nuclear plant technical advisor Dr. Flores. I discussed the finding states with a left bundle branch block and 18 this is recurrent. This would not be a STEMI equivalent. Discussed her abnormal nuclear stress test yesterday, we will plan on admission to the hospital for intervention. Agrees with aspirin and nitroglycerin at this time. Discussed if cardiac enzymes are stable will not need to heparinize. 1715: Initial troponin negative. Symptoms mild down to 2. Third nitro being 11. Will order Nitropaste. Delta troponin pending. I will discuss with hospitalist for admission. I discussed with Dr. De Souza for admission. Re-evaluation: stable Disposition discussed with patient/family/significant other: Patient significant other Case discussed with consulting clinician: Cardiology, hospitalist This note was generated with [employer] software. It may contain incorrect words, spelling, and punctuation that were not noted in checking the note before signing. Lab Data Attestation: I reviewed the patient's lab results. Labs: Laboratory Results - last 24 hr 03/28/25 03/28/25 03/28/25 14:53 15:16 16:52 PT 13.3 INR 1.0 APTT 26.6 Sodium 140 Potassium 3.7 Chloride 107 Carbon Dioxide 22.0 Anion Gap 11 BUN 13 Creatinine 0.89 Estim Creat Clear Calc 68.48 Est GFR (MDRD) Non-Af 69 BUN/Creatinine Ratio 14.6 Glucose 122 H Hemoglobin A1c 5.8 H Calcium 8.9 Troponin T High Sens 8 Troponin T Hi Sens 2 Hr 9 Triglycerides 54 Cholesterol 166 LDL Cholesterol, Calc 100 VLDL Cholesterol 11 HDL Cholesterol 56 Cholesterol/HDL Ratio 2.98 Radiography Diagnostic Testing: Clinical Impression(s) from Imaging Studies Chest X-Ray 03/28/25 15:10 IMPRESSION: Cardiomegaly with mild congestion. Reading [facility] Discharge Plan Dx/Rx/DC Orders Clinical Impression: Chest pain, Abnormal stress test, History of hypertension Disposition Disposition: Acute Care Hospital [facility] Discharge Date/Time: 03/28/25 18:19
[2025-03-28] MEDS: Aspirin 81 MG TAB.CHEW 324 MG PO (14:58)
[2025-03-28] MEDS: Nitroglycerin SL (ED/IMG/CATH) 0.4 MG TABLET SL ×3 (14:59→17:18)
[2025-03-28 15:10] LABS: Absolute Lymphocyte Count 1.09 X10^3/uL (0.83-4.51); Absolute Neutrophil Count 4.8 X10^3/uL (2.0-7.7); Basophil# 0.03 X10^3/uL; Basophil% 0.4 % (0-1); Eosinophil# 0.04 X10^3/uL; Eosinophils% 0.6 % (0-5); Hematocrit 37.2 % (37-47); Hemoglobin 12.6 g/dL (12.0-15.0); Lymphocyte # 1.09 X10^3/ul (0.83-4.51); Lymphocyte % 16.3 % (19-41); Mean Corp Hgb Conc 33.9 g/dL (32-36); Mean Corpuscular Hgb 32.6 pg (27.0-32.0); Mean Corpuscular Volume 96.4 fL (81-99); Mean Platelet Vol. 9.7 fl (6.2-12.0); Monocyte# 0.66 X10^3/uL; Monocyte% 9.9 % (0-10); NRBC Flagged by Analyzer 0 % (0-5); Neutrophil # 4.84 X10^3/uL (2.7-7.7); Neutrophil % 72.2 % (47-70); Platelet Count 123 K/mm3 (150-450); RBC Distribution Width CV 12.7 % (11.6-14.6); RBC Distribution Width SD 44.6 fl (35.1-43.9); Red Blood Count 3.86 M/mm3 (4.2-5.4); White Blood Count 6.7 K/mm3 (4.4-11.0)
--- NOTE | 2025-03-28 15:10 | RAD_ITS ---
EXAM: XR Chest, 1 View CLINICAL INDICATION: CHEST PAIN TECHNIQUE: Frontal view of the chest. COMPARISON: No relevant prior studies available. FINDINGS: LUNGS AND PLEURAL SPACES: See below. HEART: Cardiomegaly with mild congestion. MEDIASTINUM: Unremarkable. Normal mediastinal contour. BONES/JOINTS: Unremarkable. No acute fracture. RAD/Chest 1 View (Portable) IMPRESSION: Cardiomegaly with mild congestion. Reading [facility]
[2025-03-28 16:07] LABS: Anion Gap 11 (5-15); BUN 13 mg/dL (4-19); BUN/Creat Ratio 14.6 RATIO (10-20); Calcium,Total 8.9 mg/dL (7.6-11.0); Chloride 107 mmol/L (98-108); Creatinine, Serum 0.89 mg/dL (0.70-1.20); EST Glomerular Filtration Rate 69 (>60); Estimated Creatinine Clearance 68.48 ml/min (50-250); Glucose 122 mg/dL (70-99); Potassium 3.7 mmol/L (3.3-5.1); Sodium Level 140 mmol/L (133-145); Troponin T High Sensitivity 8 ng/L (<=14)
[2025-03-28 16:44] LABS: Prothrombin Time (Protime)PT. 13.3 SECONDS (11.7-14.9)
[2025-03-28 16:45] LABS: Partial Thromboplast Time 26.6 Seconds (24.1-36.2)
[2025-03-28] MEDS: Nitroglycerin Oint 1 INCH PACKET TD (17:23)
--- NOTE | 2025-03-28 17:33 | PCM.HP.STD ---
HPI - General General Date of Admission: 03/28/25 Date of Service: 03/28/25 Chief Complaint: shortness of breath HPI Narrative GUAMRO CARRASQUILLO, is a 70 F with a PMH as outlined who presents via the ED on 03/28/2025 with a complaint of chest pain which started on the morning of admission, with associated nausea. She denied any shortness of breath. Her symptoms had been recurring for a year, but recently worsened. She had an outpatient stress test yesterday which was abnormal and showd some abnormalities to the anterior wall. She was therefore referred to cardiology. However the chest pain recurred this morning. The pain was intensifying so she came into the ED this afternoon. SHe denied any lightheadedness, though she admitted to occasional palpitations, and denied any nausea, vomiting or any other symptoms. Review of systems is otherwise negative Vitals in the ED were blood pressure 117/60, pulse rate of 56, respiratory rate of 23 and pulse ox of 98% on room air. CBC showed wbc of 12.6 with WBC of 6.7 and platelets of 123. INR was 1. Chemistry showed sodium of 140 with potassium of 3.7 and creatinine of 0.89. Bicarb was 22 and anion gap was 11. Initial troponin was 8. Chest x-ray showed no acute cardiopulmonary pathology. EKG showed a new onset right bundle branch block. This was discussed with cardiology recommended that patient be started on aspirin and high intensity statin and be admitted for cardiac cath on Monday on account of abnormal stress test. [facility] Medical History (Updated 03/28/25 @ 19:[address] Loren De Souza MD) Diverticulosis Chest pain Vaginal vault prolapse Cystocele, midline Wears glasses Bladder disease Anemia Restless legs History of diverticulosis History of IBS Heartburn Former smoker History of edema History of stress test Fibromyalgia Diverticulosis HTN (hypertension) Hypothyroidism Diarrhea Epigastric pain Home Medications ?Medication ?Instructions ?Recorded ?Last Taken ?Type atenolol 50 mg tablet 50 mg PO BID 01/04/18 09/01/22 History calcium carbonate 1,200 mg PO DAILY 01/04/18 Unknown History levothyroxine 75 mcg tablet 75 mcg PO DAILY 01/04/18 Unknown History conjugated estrogens 0.625 mg/gram 0.625 mg vaginal .Q3DAYS 06/28/22 Unknown History vaginal cream (Premarin) triamcinolone acetonide 0.5 % 1 applic topical DAILY PRN PRN 06/28/22 Unknown History topical cream ECZEMA multivitamin-ferrous 1 tab PO DAILY 08/29/22 Unknown History fumarate-folic acid 18 mg-400 mcg tablet (Centrum Women) losartan 50 mg tablet 50 mg PO DAILY 03/28/25 Unknown History ondansetron HCl 4 mg tablet 4 mg PO Q8H PRN PRN nausea and 03/28/25 Unknown History vomiting Allergy/AdvReac Type Severity Reaction Status Date / Time cefaclor (From [facility]) Allergy Hives Verified 03/28/25 14:25 latex Allergy Rash Verified 03/28/25 14:25 Family History Mother Cancer lung Diabetes Colon polyps Father Hypertension Brother Diabetes Colon polyps Surgical History History of bladder suspension procedure History of esophagogastroduodenoscopy (EGD) Status post hysteroscopic myomectomy Infected cyst of Bartholin's gland duct Status post lymph node biopsy S/P cataract extraction S/P hysterectomy S/P rotator cuff repair H/O section S/P colonoscopy S/P laparoscopic cholecystectomy Status post dilation and curettage Social History Smoking Status: Former smoker ROS Constitutional Constitutional: Reports fatigue; Denies anorexia, chills, fever(s), malaise or weakness Eyes Eyes: Denies change in vision ENT HEENT: Denies dysphagia, headache(s) or sore throat Cardiovascular Cardiovascular: Reports chest pain; Denies dyspnea on exertion, edema, lightheadedness, orthopnea, palpitations, paroxysmal nocturnal dyspnea, rapid heart rate or syncope Respiratory/Chest Respiratory/Chest: Denies cough, dyspnea, productive cough, shortness of breath at rest or shortness of breath with exertion Gastrointestinal Gastrointestinal: Denies abdominal pain, constipation, diarrhea, nausea or vomiting Genitourinary Genitourinary: Denies burning urination or dysuria Musculoskeletal Musculoskeletal: Denies back pain Neurologic Neurologic: Denies confusion, dizziness, focal weakness, headache(s), seizures or syncope Psychiatric Psychiatric: Denies anxiety or depression Vital Signs Vital Signs Vital Signs: 03/28/25 14:23 03/28/25 14:59 03/28/25 15:02 Temperature 98 F Temperature Source Oral Pulse Rate 98 56 L Respiratory Rate 16 Respiratory Effort Respiratory Pattern Blood Pressure 166/71 H 156/96 H Blood Pressure Mean 102 Pulse Ox 98 Oxygen Delivery Method Room Air Room Air 03/28/25 15:02 03/28/25 15:38 03/28/25 15:45 Temperature Temperature Source Pulse Rate 58 L 56 L Respiratory Rate 14 16 Respiratory Effort Normal Respiratory Pattern Normal Blood Pressure Blood Pressure Mean Pulse Ox 100 100 Oxygen Delivery Method 03/28/25 15:55 03/28/25 16:00 03/28/25 16:00 Temperature Temperature Source Pulse Rate 54 L 56 L 57 L Respiratory Rate 16 15 Respiratory Effort Respiratory Pattern Blood Pressure 129/73 H 131/72 H 131/72 H Blood Pressure Mean 91 90 Pulse Ox 100 99 Oxygen Delivery Method Room Air Room Air 03/28/25 16:05 03/28/25 16:10 03/28/25 16:15 Temperature Temperature Source Pulse Rate 52 L 57 L 58 L Respiratory Rate 12 16 17 Respiratory Effort Respiratory Pattern Blood Pressure 125/57 H 118/63 111/66 Blood Pressure Mean 76 78 80 Pulse Ox 100 98 98 Oxygen Delivery Method 03/28/25 16:20 03/28/25 16:25 03/28/25 16:30 Temperature Temperature Source Pulse Rate 57 L 52 L 51 L Respiratory Rate 13 17 20 H Respiratory Effort Respiratory Pattern Blood Pressure 115/62 127/54 H 119/54 L Blood Pressure Mean 77 72 73 Pulse Ox 97 98 98 Oxygen Delivery Method Room Air 03/28/25 16:35 03/28/25 16:40 03/28/25 16:45 Temperature Temperature Source Pulse Rate 52 L 50 L 51 L Respiratory Rate 14 15 14 Respiratory Effort Respiratory Pattern Blood Pressure 113/57 L 120/79 130/59 H Blood Pressure Mean 73 93 81 Pulse Ox 99 99 99 Oxygen Delivery Method 03/28/25 16:50 03/28/25 16:55 03/28/25 17:15 Temperature Temperature Source Pulse Rate 54 L 51 L Respiratory Rate 21 H 18 Respiratory Effort Respiratory Pattern Blood Pressure 122/60 H 127/62 H Blood Pressure Mean 79 81 Pulse Ox 99 100 Oxygen Delivery Method 03/28/25 17:16 03/28/25 17:18 03/28/25 17:23 Temperature Temperature Source Pulse Rate 53 L 52 L 56 L Respiratory Rate 23 H Respiratory Effort Respiratory Pattern Blood Pressure 123/81 H 123/81 H 117/60 Blood Pressure Mean 95 Pulse Ox 98 Oxygen Delivery Method Room Air Weight Weight: 223 lb 14.4 oz Body Mass Index (BMI) 37.2 Physical Exam Const alert, oriented x3 and no apparent distress General Appearance: cooperative HEENT normocephalic, head/scalp atraumatic, hearing grossly normal bilaterally, moist oral mucous membranes and oropharynx normal Mouth: oral and palatal mucosa normal Eyes EOMs intact bilaterally and conjunctivae normal Neck supple and no JVD Resp normal respiratory effort, no use of accessory muscles and clear to auscultation bilaterally Cardio regular rate, regular rhythm, S1 normal heart sound, S2 normal heart sound and no murmurs GI normal to inspection, nondistended, normoactive bowel sounds, soft to palpation and non-tender Extremity normal to inspection, full ROM and no clubbing, cyanosis or edema Neuro oriented x3, moves all extremities and no focal motor deficits Sensorium / Orientation: awake and alert Motor Exam: strength 5/5 throughout Psych affect normal Results Lab / Micro Data 03/28/25 Unknown 03/28/25 14:53 Labs: Laboratory Results - last 24 hr 03/28/25 14:53: PT 13.3, INR 1.0, APTT 26.6, Sodium 140, Potassium 3.7, Chloride 107, Carbon Dioxide 22.0, Anion Gap 11, BUN 13, Creatinine 0.89, Estim Creat Clear Calc 68.48, Est GFR (MDRD) Non-Af 69, BUN/Creatinine Ratio 14.6, Glucose 122 H, Calcium 8.9, Troponin T High Sens 8 03/28/25 : WBC 6.7, RBC 3.86 L, Hgb 12.6, Hct 37.2, MCV 96.4, MCH 32.6 H, MCHC 33.9, RDW Std Deviation 44.6 H, RDW Coeff of Daryl 12.7, Plt Count 123 L, MPV 9.7, Immature Gran % (Auto) 0.600, Neut % (Auto) 72.2 H, Lymph % (Auto) 16.3 L, [place] % (Auto) 9.9, Eos % (Auto) 0.6, Baso % (Auto) 0.4, Absolute Neuts (auto) 4.8, Absolute Lymphs (auto) 1.09, Nucleated RBC % 0 Imaging Radiology Impression Chest X-Ray 03/28/25 15:10 IMPRESSION: Cardiomegaly with mild congestion. Reading Location: [facility] Assessment & Plan Assessment/Plan (1) CAD (coronary artery disease): (2) Chest pain: PLAN: Plan #Chest pain in the setting of abnormal stress test Patient has been having exertional chest pain for about a year which gradually worsened recently so she had an outpatient stress test yesterday which was abnormal. It showed mild perfusion reduced in the anterior wall post pharmacological stress suggestive of anterior wall ischemia with EF of 70%. She was called to come to see cardiology today. She still Having Chest Pain so She Went into the ED. Initial troponin is negative. I will cycle troponins. EKG showed new right bundle branch block. Placed on aspirin and high intensity statin. On metoprolol. Consult cardiology. Patient for cardiac cath Monday. Get 2D echo. #Hypertension: On losartan #Hypothyroidism: On Synthroid Class II obesity: BMI is 37.1. Complicates acute care, expected recovery and prognosis. DVT prophylaxis: lovenox CODE STATUS: Patient counseled extensively about different types of CODE STATUS including full code, DNR CCA and DNR CCA. Patient elects to be full code. Total [id number] time 16 minutes. Charges/Coding Visit Charges Inpatient E&M: 54370 Init Hosp L2 Procedures Hospitalists Procedures: 28384 Advncd Care Plan 30 Min
[2025-03-28 17:39] LABS: Troponin T High Sens 2 HR 9 ng/L (<=14)
[2025-03-28 18:21] LABS: Hemoglobin A1c 5.8 % (<=5.6)
--- OUTSIDE RECORDS SUMMARY | 2025-03-28 19:44 | XMS RPT_ITS | CCD ---
Author Organization [facility] Care Team Providers Care Cable Reeler Name Role Phone Dr. Khushboo Dudley Primary Care Provider Yoselin Patiño Attending Provider Unavailable Dr. Khushboo Dudley Primary Care Provider Yoselin Patiño Attending Provider Unavailable Dr. Khushboo Dudley Referring Provider [phone] Friend[facility]. Art Attending Provider FriendDr. Art Other Provider [phone] Dr. Khushboo Dudley MD Primary Care Provider [phone] Dr. Kuhshboo Dudley MD Attending Provider Dr. Khushboo Dudley MD Referring Provider Khushboo Dudley Primary Care Unavailable Khushboo Dudley Attending Unavailable Khushboo Dudley Referring Unavailable Khushboo Dudley Primary Care Unavailable Khushboo Dudley Attending Unavailable Khushboo Dudley Referring Unavailable Khushboo Dudley Primary Care Unavailable Khushboo Dudley Attending Unavailable Octavia Khushboo Referring Unavailable Octavia, Khushboo Primary Care Unavailable Khushboo Dudley Attending Unavailable Khushboo Dudley Referring Unavailable Khushboo Dudley Primary Care Unavailable Khushboo Dudley Attending Unavailable Khushboo Dudley Referring Unavailable Dr. Khushboo Dudley MD Other Provider Dr. Robbi Yu MD Attending Provider Dr. Davey Bosch DO Emergency Provider Nolvia GARCIA, Dr. Loren gAuilar Admit Provider Nolvia GARCIA, Dr. Loren Aguilar Attending Provider Allergies Allergy Classification Reported Allergen(s) Allergy Type Date of Onset Reaction(s) Facility (9 sources) Cefaclor Drug Allergy 08-02-2021 Hives [facility] (9 sources) Latex Allergy to substance 08-02-2021 Rash [facility] (1 source) Cefaclor Drug Allergy 09-01-2022 [facility] (1 source) Latex Drug allergy (disorder) 09-01-2022 [facility] Medications Current Medications Medication Drug Class(es) Dates Sig (Normalized) Sig (Original) acetaminophen 325 mg / oxyCODONE hydrochloride 5 mg oral tablet (2 sources) Opioid Agonist Start: 08-09-2021 take 2 tablets by mouth every eight hours as needed Oxycodone-Acetami nophen Active 2 TABLET PO EVERY 8 HOURS NEEDED 04 05August 09, 2021 [id number] 200 actuat albuterol 0.09 mg/actuat metered dose inhaler (1 source) beta2-Adrenergic Agonist Start: 06-28-2022 take 1 puff(s) by inhalation every six hours Albuterol Sulfate Active 2 PUFF INHALATION EVERY 6 HOURS June 28, 2022 12:00am atenolol 50 mg oral tablet (9 sources) beta-Adrenergic Elana Start: 01-04-2018 take 1 tablet by mouth twice daily Atenolol 50 MG tablet Active 50 mg PO TWICE A DAY January 04, 2018 12:00am calcium carbonate 1500 mg oral tablet (9 sources) Start: 01-04-2018 take 2 tablets by mouth once daily Calcium Carbonate 600 MG tablet Active 1200 mg PO DAILY January 04, 2018 12:00am Start: 01-04-2018 take 1200 mg by mouth once anderson ly Calcium Carbonate Active 1200 MG PO DAILY January 03, 2018 11:00pm estrogens, conjugated (fdc) 0.625 mg/ml vaginal cream (8 sources) Estrogen Start: 06-28-2022 Conjugated Est rogens [...] 12:00am levothyroxine sodium 0.075 mg oral tablet (9 sources) l-Thyroxine Start: 01-04-2018 take 1 tablet by mouth once daily Levothyroxine 75 MCG tablet Active 75 ug PO DAILY January 04, 2018 12:00am losartan potassium 50 mg oral tablet (1 source) Angiotensin 2 Receptor Elana Start: 03-28-2025 take 1 tablet by mouth once daily Losartan 50 mg tablet Active 50 mg PO DAILY March 28, 2025 12:00am Ntqwbdieykko-Rpnt-Qx lic Acid (Centrum Women) 18-400 mg-mcg Tablet (7 sources) Start: 08-29-2022 Hxloaxzfpjhk-Zaxc-I olic Acid (Centrum Women) 18-400 mg-mcg Tablet Active 1 {tbl} PO DAILY August 29, 2022 1:00am Start: 08-29-2022 take 1 tablet by lauar th once daily Yiriispbrrlt-Asiu-Parkw Acid (Centrum Women) 18-400 mg-mcg Tablet Active 1 TABLET PO DAILY August 29, 2022 1:00am Start: 08-29-2022 take 1 tablet by laura th once daily Vmoliatvynsk-Gyzu-Qlowm Acid (Centrum Women) 18-400 mg-mcg Tablet Active 1 TABLET PO DAILY August 29, 2022 12:00am ondansetron 4 mg oral tablet (12 sources) Serotonin-3 Receptor Antagonist Start: 03-28-2025 take 1 tablet by mouth every eight hours as needed for nausea and vomiting Ondansetron Hcl 4 mg tablet Active 4 mg PO EVERY 8 HOURS NEEDED as needed for nausea and vomiting March 28, 2025 12:00am Start: 08-09-2021 take 8 mg by mouth e very eight hours as needed Ondansetron Hcl Active 8 MG PO EVERY 8 HOURS NEEDED 20 August 09, 2021 12:00am Start: 01-04-2018 End: 03-28-2025 take 1 tablet by mouth every eight hours as needed for nausea Ondansetron 4 MG tablet Discontinued 4 mg PO EVERY 8 HOURS NEEDED as needed for Nausea January 04, 2018 12:00am March 28, 2025 4:24pm sulfamethoxazole 800 mg / trimethoprim 160 mg oral tablet (2 sources) Dihydrofolate Reductase Inhibitor Antibacterial, Sulfonamide Antimicrobial Start: 08-09-2021 take 1 tablet by mouth twice daily Sulfamethoxazole-Trimethoprim Active 1 TABLET PO TWICE A DAY 6 3 August 09, 2021 12:00am triamcinolone acetonide 5 mg/ml topical cream (8 sources) Corticosteroid Start: 06-28-2022 Triamcinolone Acetonide 0.5 % cream Active 1 NMA TOPICAL DAILY NEEDED as needed for ECZEMA June 28, 2022 12:00am Completed/Discontinued Medications Medication Drug Class(es) Dates Sig (Normalized) Sig (Original) dicyclomine hydrochloride 20 mg oral tablet (9 sources) Anticholinergic Start: 01-04-2018 End: 06-28-2022 take 1 tablet by mouth four times daily as needed Dicyclomine 20 MG tablet Discontinued 20 mg PO 4 TIMES DAILY as needed for Irritable Bowel Syndrome January 04, 2018 12:00am June 28, 2022 9:09am lisinopril 10 mg oral tablet (9 sources) Angiotensin Converting Enzyme Inhibitor Start: 08-02-2021 End: 03-28-2025 take 1 tablet by mouth twice daily Lisinopril 10 mg Tablet Discontinued 10 mg PO TWICE A DAY August 02, 2021 12:00am March 28, 2025 4:24pm Start: 08-02-2021 take 10 mg by mouth once daily Lisinopril Active 10 MG PO DAILY August 02, 2021 12:00am Multivitamin Capsule (4 sources) Start: 08-02-2021 End: 06-28-2022 Multivitamin Capsule [...] Start: 08-02-2021 take 1 capsule by mo uth once daily Multivitamin Active 1 CAP PO DAILY August 02, 2021 12:00am predniSONE 20 mg oral tablet (9 sources) Start: 06-20-2021 End: 06-25-2021 take 2 tablets by mouth once daily Prednisone 20 mg tablet Discontinued 40 mg PO DAILY 10 June 20, 2021 12:00am June 24, 2021 12:00am June 25, 2021 12:01am Start: 06-20-2021 End: 06-25-2021 take 40 mg by mouth once daily Prednisone Discontinued 40 MG PO DAILY 07 20June 19, 2021 11:00pm June 24, 2021 11:01pm raNITIdine 300 mg oral tablet (9 sources) Histamine-2 Receptor Antagonist Start: 01-04-2018 End: 03-14-2018 take 1 tablet by mouth once daily Ranitidine Hcl 300 MG tablet Discontinued 300 mg PO DAILY January 04, 2018 12:00am March 14, 2018 1:34pm WHEAT DEXTRIN (9 sources) Start: 08-02-2021 End: 06-28-2022 Wheat Dextrin [...] Date Documented Da te Episodic/Chronic Acute bronchitis (9 sources) Acute bronchitis; Translations: [Acute bronchitis, unspecified] [...] conditions (not mental disorders or infectious disease) (10 sources) Patient encounter status; Translations: [Encounter for screening for malignant neoplasm of colon] Onset: 03-11-2025 Episodic Prolapse of female genital organs (18 sources) Vaginal vault prolapse; Translations: [Female genital prolapse, unspecified] 08-09-2021 Chronic Results Test Name Value Interpretation Reference Range Facility Absolute lymphocyte countOrd ered By: Davey Bosch on 03-28-2025 Lymphocytes Auto (Unsp spec) [#/Vol] 1.09 10*3/uL 0.83-4.51 [facility] Absolute neutrophil countOrd ered By: Davey Bosch on 03-28-2025 Neutrophils (Bld) [#/Vol] 4.8 10*3/uL 2.0-7.7 [facility] Activated partial thrombopla stin time (aPTT) in platelet poor plasma by coagulation aOrdered By: Davey Bosch on 03-28-2025 aPTT Coag (PPP) [Time] 26.6 s 24.1-36.2 [facility] Anion gap in Serum or Plasma Ordered By: Davey Bosch on 03-28-2025 Anion gap [Moles/Vol] 11 mmol/L 5-15 [facility] Automated lymphocyte count a s percentage of total leukocytesOrdered By: Davey Bosch on 03-28-2025 Lymphocytes/100 WBC Auto (Unsp spec) 16.3 % Low 19-41 [facility] BUN/creatinine ratioOrdered By: Davey Bosch on 03-28-2025 Urea nitrogen/Creatinine [Mass ratio] 14.6 mg/mg 10-20 [facility] Basophil percentageOrdered B y: Davey Bosch on 03-28-2025 Basophils/100 WBC (Bld) 0.4 % 0-1 [facility] Carbon dioxide, total [Moles /volume] in Central venous bloodOrdered By: Davey Bosch on 03-28-2025 CO2 [Moles/Vol] 22.0 mmol/L 21.0-32.0 [facility] Chloride assayOrdered By: Олег Bosch on 03-28-2025 Chloride [Moles/Vol] 107 mmol/L 98-108 [facility] Eosinophil percentageOrdered By: Davey Bosch on 03-28-2025 Eosinophils/100 WBC (Bld) 0.6 % 0-5 [facility] Erythrocyte distribution wid th ratioOrdered By: Davey Bosch on 03-28-2025 Erythrocyte distribution width (RBC) [Ratio] 12.7 % 11.6-14.6 [facility] Erythrocyte distribution wid th standard deviationOrdered By: Davey Bosch on 03-28-2025 Erythrocyte distribution width (RBC) [Ratio] 44.6 fl High 35.1-43.9 [facility] Glomerular filtration rate ( GFR) estimation/1.73 sq m using serum, plasma, or whole bOrdered By: Davey Bosch on 03-28-2025 GFR/1.73 sq M.predicted among non-blacks MDRD (S/P/Bld) [Vol rate/Area] 69 mL/min/{1.73_m2} >60 [facility] Comment on above: mL/min/1.73m2 CKD-EP I Creatinine Equation (2020) Hematocrit Auto (Bld) [Volum e fraction]Ordered By: Davey Bosch on 03-28-2025 Hematocrit (Bld) [Volume fraction] 37.2 % 37-47 [facility] Hemoglobin measurementOrdere d By: Davey Bosch on 03-28-2025 Hemoglobin (Bld) [Mass/Vol] 12.6 g/dL 12.0-15.0 [facility] Immature granulocytes/100 WB C Auto (Bld)Ordered By: Davey Bosch 03-28-2025 Immature granulocytes/100 WBC (Bld) 0.600 % 0.0-0.9 [facility] Comment on above: IG% - Immature Granu locytes (promyelocytes, myelocytes and metamyelocytes) > 1% indicates that a LEFT SHIFT is Present. International normalized rat io (INR) calculationOrdered By: Davey Bosch on 03-28-2025 INR Coag (Bld) [Relative time] 1.0 {INR} [facility] MCV (mean corpuscular volume ) determinationOrdered By: Davey Bosch on 03-28-2025 MCV (RBC) [Entitic vol] 96.4 fL 81-99 [facility] Mean corpuscular hemoglobin (MCH) determinationOrdered By: Davey Bosch on 03-28-2025 MCH (RBC) [Entitic mass] 32.6 pg High 27.0-32.0 [facility] Mean corpuscular hemoglobin concentration (MCHC) determinationOrdered By: Davey Bosch on 03-28-2025 MCHC (RBC) [Mass/Vol] 33.9 g/dL 32-36 [facility] Mean platelet volume determi nationOrdered By: Davey Bosch on 03-28-2025 Platelet mean volume (Bld) [Entitic vol] 9.7 fL 6.2-12.0 [facility] Monocyte percentageOrdered B y: Davey Bosch on 03-28-2025 Monocytes/100 WBC (Bld) 9.9 % 0-10 [facility] Neutrophil percentageOrdered By: Davey Bosch on 03-28-2025 Neutrophils/100 WBC (Bld) 72.2 % High 47-70 [facility] Nucleated red blood cell per centageOrdered By: Davey Bosch on 03-28-2025 Nucleated RBC/100 WBC (Bld) [Ratio] 0 % 0-5 [facility] Platelet countOrdered By: Олег Bosch on 03-28-2025 Platelets (Bld) [#/Vol] 123 10*3/uL Low 150-450 [facility] Potassium measurement (mass/ volume)Ordered By: Davey Bosch on 03-28-2025 Potassium (Unsp spec) [Mass/Vol] 3.7 mmol/L 3.3-5.1 [facility] Prothrombin timeOrdered By: Davey Bosch on 03-28-2025 PT Coag (PPP) [Time] 13.3 s 11.7-14.9 [facility] RBC Auto (Bld) [#/Vol]Ordere d By: Davey Bosch on 03-28-2025 RBC (Bld) [#/Vol] 3.86 10*6/uL Low 4.2-5.4 [facility] Serum creatinine measurement (mass/volume)Ordered By: Davey Bosch on 03-28-2025 Creatinine [Mass/Vol] 0.89 mg/dL 0.70-1.20 [facility] Serum glucose measurement (m ass/volume)Ordered By: Davey Bosch on 03-28-2025 Glucose [Mass/Vol] 122 mg/dL High 70-99 [facility] Serum or plasma calcium hema urement (mass/volume)Ordered By: Davey Bosch on 03-28-2025 Calcium [Mass/Vol] 8.9 mg/dL 7.6-11.0 [facility] Serum or plasma urea nitroge n measurement (mass/volume)Ordered By: Davey Bosch on 03-28-2025 Urea nitrogen [Mass/Vol] 13 mg/dL 4-19 [facility] Sodium levelOrdered By: Davey Bosch on 03-28-2025 Sodium [Moles/Vol] 140 mmol/L 133-145 [facility] Troponin T.cardiac [Mass/vol ume] in Serum or Plasma by High sensitivity methodOrdered By: Davey Bosch on 03-28-2025 Troponin T.cardiac High sensitivity method [Mass/Vol] 9 ng/L <14 [facility] Troponin T.cardiac High sensitivity method [Mass/Vol] 8 ng/L <14 [facility] White blood cell (WBC) count Ordered By: Davey Bosch on 03-28-2025 WBC (Bld) [#/Vol] 6.7 10*3/uL 4.4-11.0 [facility] Breast Limited Unilateralon 03-18-2025 Breast Limited Unilateral [facility] [address] [place], [place] [id number] Breast Limited Unilateral MR#: [id number] Acct: [id number] Name: GUMARO CARRASQUILLO Rep #: [id number] : 1955 F 70 From: Araceli Banerjee MD PCP: Dr. Khushboo Dudley MD Status: REG CLI Study: Breast Limited Unilateral Date of Exam: Exam# [id number] Ordering Dr: Khushboo Dudley MD PROCEDURE: BREAST [...] BENIGN. RECOMMEND ANNUAL MAMMOGRAPHIC SCREENING. Reading Location: [facility] CC: Dr. Khushboo Dudley MD Boxing Instructor: Signed Normal [facility] Breast imaging reportOrdered By: Araceli Banerjee on 03-07-2025 Study report [facility] [address] [place] [address] [id number] SCRN MAMM (CAD)W/BILLY BILAT MR#: [id number] Acct: [id number] Name: GUMARO CARRASQUILLO Rep #: [id number] : 1955 F 70 From: Zofia Banerjee MD PCP: Dr. Khushboo Dudley MD Status: REG CLI Study:SCRN MAMM (CAD)W/BILLY BILAT Date of Exa m: 03/07/25 Exam# [id number] Ordering Dr: Scott Dudley MD EXAM: SCRN [...] be mailed to the patient. Reading Location: [facility] CC: Dr. Khushboo Dudley MD ~ Boxing Instructor: Signed [facility] SCRN MAMM (CAD)W/BILLY BILATo n 03-07-2025 SCRN MAMM (CAD)W/BILLY BILAT [facility] Services [address] [place] [address] [id number] SCRN MAMM (CAD)W/BILLY BILAT MR#: [id number] Acct: [id number] Name: GUMARO CARRASQUILLO Rep #: [id number] : 1955 F 70 From: Araceli Banerjee MD PCP: Dr. Khushboo Dudley MD Status: [facility] Study: SCRN MAMM (CAD)W/BILLY BILAT Date of Exam: 02/14 01/07 Exam# [id number] Ordering Dr: Khushboo Dudley MD EXAM: SCRN [...] be mailed to the patient. Reading Location: [facility] CC: Dr. Khushboo Dudley MD Boxing Instructor: Signed Normal [facility] Absolute lymphocyte countOrd ered By: Khushboo Dudley on 02-20-2025 Lymphocytes Auto (Unsp spec) [#/Vol] 1.47 10*3/uL 0.83-4.51 [facility] Absolute neutrophil countOrd ered By: Khushboo Dudley on 02-20-2025 Neutrophils (Bld) [#/Vol] 3.8 10*3/uL 2.0-7.7 [facility] Anion gap in Serum or Plasma Ordered By: Khushboo Dudley on 02-20-2025 Anion gap [Moles/Vol] 10 mmol/L 5-15 [facility] Automated lymphocyte count a s percentage of total leukocytesOrdered By: Khushboo Dudley on 02-20-2025 Lymphocytes/100 WBC Auto (Unsp spec) 24.7 % 19-41 [facility] BUN/creatinine ratioOrdered By: Khushboo Dudley on 02-20-2025 Urea nitrogen/Creatinine [Mass ratio] 14.9 mg/mg 10-20 [facility] Basophil percentageOrdered B y: Khushboo Dudley on 02-20-2025 Basophils/100 WBC (Bld) 0.5 % 0-1 [facility] Bilirubin, totalOrdered By: Khushboo Dudley on 02-20-2025 Bilirubin [Mass/Vol] 0.37 mg/dL 0.00-1.30 [facility] CBC W/Diff, Automatedon 05 Absolute Lymph 1.47 X10 3/uL Normal 0.83-4.51 [facility] Comment on above: Performed By: #### L 501.9520, L503.7505, L500.4100, L100.0100, L500.4050 #### [facility] [address] [place], [address] Absolute Neut 3.8 X10 3/uL Normal 2.0-7.7 [facility] Comment on above: Performed By: #### L [id number], L503.7505, L500.4100, L100.0100, L500.4050 #### [facility] [address] [place], [address] Basophils/100 WBC (Bld) 0.5 % Normal 0-1 [facility] Comment on above: Performed By: #### L 501.9520, L503.7505, L500.4100, L100.0100, L500.4050 #### [facility] [address] [place], [address] Eosinophils/100 WBC (Bld) 0.8 % Normal 0-5 [facility] Comment on above: Performed By: #### L 501.9520, L503.7505, L500.4100, L100.0100, L500.4050 #### [facility] [address] [place], [address] Erythrocyte distribution width (RBC) [Ratio] 12.7 % Normal 11.6-14.6 [facility] Comment on above: Performed By: #### L 501.9520, L503.7505, L500.4100, L100.0100, L500.4050 #### [facility] [address] [place], [address] Hematocrit (Bld) [Volume fraction] 39.7 % Normal 37-47 [facility] Comment on above: Performed By: #### L 501.9520, L503.7505, L500.4100, L100.0100, L500.4050 #### [facility] [address] [place], [address] Hemoglobin (Bld) [Mass/Vol] 13.1 g/dL Normal 12.0-15.0 [facility] Comment on above: Performed By: #### L 501.9520, L503.7505, L500.4100, L100.0100, L500.4050 #### [facility] [address] [place], [address] IG% 0.200 Normal 0.0-0.9 [facility] Comment on above: Result Comment: IG% - Immature Granulocytes (promyelocytes, myelocytes and metamyelocytes) > 1% indicates that a LEFT SHIFT is Present. Performed By: #### L 501.9520, L503.7505, L500.4100, L100.0100, L500.4050 #### [facility] [address] [place], [address] Lymphocytes/100 WBC (Bld) 24.7 % Normal 19-41 [facility] Comment on above: Performed By: #### L 501.9520, L503.7505, L500.4100, L100.0100, L500.4050 #### [facility] [address] [place], [address] MCH (RBC) [Entitic mass] 32.1 pg High 27.0-32.0 [facility] Comment on above: Performed By: #### L 501.9520, L503.7505, L500.4100, L100.0100, L500.4050 #### [facility] [address] [place], [address] MCHC (RBC) [Mass/Vol] 33.0 g/dL Normal 32-36 [facility] Comment on above: Performed By: #### L 501.9520, L503.7505, L500.4100, L100.0100, L500.4050 #### [facility] [address] [place], [address] MCV (RBC) [Entitic vol] 97.3 fL Normal 81-99 [facility] Comment on above: Performed By: #### L 501.9520, L503.7505, L500.4100, L100.0100, L500.4050 #### [facility] [address] [place], [address] Monocytes/100 WBC (Bld) 9.4 % Normal 0-10 [facility] Comment on above: Performed By: #### L 501.9520, L503.7505, L500.4100, L100.0100, L500.4050 #### [facility] [address] [place], [address] Neutrophils/100 WBC (Bld) 64.4 % Normal 47-70 [facility] Comment on above: Performed By: #### L 501.9520, L503.7505, L500.4100, L100.0100, L500.4050 #### [facility] [address] [place], [address] Nucleated RBC (Bld) [#/Vol] 0 10*3/uL Normal 0-5 [facility] Comment on above: Performed By: #### L 501.9520, L503.7505, L500.4100, L100.0100, L500.4050 #### [facility] [address] [place], [address] Platelet mean volume (Bld) [Entitic vol] 10.5 fL Normal 6.2-12.0 [facility] Comment on above: Performed By: #### L 501.9520, L503.7505, L500.4100, L100.0100, L500.4050 #### [facility] [address] [place], [address] Platelets (Bld) [#/Vol] 140 10*3/uL Low 150-450 [facility] Comment on above: Performed By: #### L 501.9520, L503.7505, L500.4100, L100.0100, L500.4050 #### [facility] [address] [place], [address] RBC (Bld) [#/Vol] 4.08 10*6/uL Low 4.2-5.4 [facility] Comment on above: Performed By: #### L 501.9520, L503.7505, L500.4100, L100.0100, L500.4050 #### [facility] [address] [place], [address] RDW SD 45.8 fl High 35.1-43.9 [facility] Comment on above: Performed By: #### L 501.9520, L503.7505, L500.4100, L100.0100, L500.4050 #### [facility] [address] [place], [address] WBC (Bld) [#/Vol] 5.9 10*3/uL Normal 4.4-11.0 [facility] Comment on above: Performed By: #### L 501.9520, L503.7505, L500.4100, L100.0100, L500.4050 #### [facility] [address] [place], [address] Calculated very low density lipoprotein (VLDL) cholesterol measurementOrdered By: Khushboo Dudley on 02-20-2025 Calculated very low density lipoprotein (VLDL) cholesterol measurement 9 mg/dL 5-40 [facility] Carbon dioxide, total [Moles /volume] in Central venous bloodOrdered By: Khushboo Dudley on 02-20-2025 CO2 [Moles/Vol] 23.1 mmol/L 21.0-32.0 [facility] Chloride assayOrdered By: Hoang reednawaf Octavia on 02-20-2025 Chloride [Moles/Vol] 107 mmol/L 98-108 [facility] Comprehensive Metabolic Prof ilon 02-20-2025 Albumin [Mass/Vol] 4.0 g/dL Normal 3.4-4.8 [facility] Comment on above: Performed By: #### L 501.9520, L503.7505, L500.4100, L100.0100, L500.4050 #### [facility] [address] [place], [address] Albumin/Globulin [Mass ratio] 1.2 {ratio} Normal 0.9-2.4 [facility] Comment on above: Performed By: #### L 501.9520, L503.7505, L500.4100, L100.0100, L500.4050 #### [facility] [address] [place], [address] ALK PHOS 81 U/L Normal 35-104 [facility] Comment on above: Performed By: #### L 501.9520, L503.7505, L500.4100, L100.0100, L500.4050 #### [facility] [address] [place], [address] ALT [Catalytic activity/Vol] 13 U/L Normal <=34 [facility] Comment on above: Performed By: #### L 501.9520, L503.7505, L500.4100, L100.0100, L500.4050 #### [facility] [address] [place], [address] AST [Catalytic activity/Vol] 22 U/L Normal <=31 [facility] Comment on above: Performed By: #### L 501.9520, L503.7505, L500.4100, L100.0100, L500.4050 #### [facility] [address] [place], [address] Bilirubin [Mass/Vol] 0.37 mg/dL Normal 0.00-1.30 [facility] Comment on above: Performed By: #### L 501.9520, L503.7505, L500.4100, L100.0100, L500.4050 #### [facility] [address] [place], [address] BUN/CRE 14.9 RATIO Normal 10-20 [facility] Comment on above: Performed By: #### L 501.9520, L503.7505, L500.4100, L100.0100, L500.4050 #### [facility] [address] [place], [address] Calcium [Mass/Vol] 9.1 mg/dL Normal 7.6-11.0 [facility] Comment on above: Performed By: #### L 501.9520, L503.7505, L500.4100, L100.0100, L500.4050 #### [facility] [address] [place], [address] Chloride [Moles/Vol] 107 mmol/L Normal 98-108 [facility] Comment on above: Performed By: #### L 501.9520, L503.7505, L500.4100, L100.0100, L500.4050 #### [facility] [address] [place], [address] CO2 [Moles/Vol] 23.1 mmol/L Normal 21.0-32.0 [facility] Comment on above: Performed By: #### L 501.9520, L503.7505, L500.4100, L100.0100, L500.4050 #### [facility] [address] [place], [address] Creatinine [Mass/Vol] 0.85 mg/dL Normal 0.70-1.20 [facility] Comment on above: Performed By: #### L 501.9520, L503.7505, L500.4100, L100.0100, L500.4050 #### [facility] [address] [place], [address] GAP 10 Normal 5-15 [facility] Comment on above: Performed By: #### L 501.9520, L503.7505, L500.4100, L100.0100, L500.4050 #### [facility] [address] [place], [address] GFR/1.73 sq M.predicted among non-blacks MDRD (S/P/Bld) [Vol rate/Area] 73 mL/min/{1.73_m2} Normal >60 [facility] Comment on above: Result Comment: mL/m in/1.73m2 CKD-EPI Creatinine Equation (2020) Performed By: #### L 501.9520, L503.7505, L500.4100, L100.0100, L500.4050 #### [facility] [address] [place], [address] Globulin (S) [Mass/Vol] 3.2 g/dL Normal 2.2-4.2 [facility] Comment on above: Performed By: #### L 501.9520, L503.7505, L500.4100, L100.0100, L500.4050 #### [facility] [address] [place], [address] Glucose [Mass/Vol] 99 mg/dL Normal 70-99 [facility] Comment on above: Performed By: #### L 501.9520, L503.7505, L500.4100, L100.0100, L500.4050 #### [facility] [address] [place], [address] Potassium [Moles/Vol] 4.1 mmol/L Normal 3.3-5.1 [facility] Comment on above: Performed By: #### L 501.9520, L503.7505, L500.4100, L100.0100, L500.4050 #### [facility] [address] [place], [address] Sodium [Moles/Vol] 141 mmol/L Normal 133-145 [facility] Comment on above: Performed By: #### L 501.9520, L503.7505, L500.4100, L100.0100, L500.4050 #### [facility] [address] [place], [address] T PROT 7.2 g/dL Normal 5.9-8.4 [facility] Comment on above: Performed By: #### L 501.9520, L503.7505, L500.4100, L100.0100, L500.4050 #### [facility] [address] [place], [address] Urea nitrogen [Mass/Vol] 13 mg/dL Normal 4-19 [facility] Comment on above: Performed By: #### L 501.9520, L503.7505, L500.4100, L100.0100, L500.4050 #### [facility] [address] [place], [address] Eosinophil percentageOrdered By: Khushboo Dudley on 02-20-2025 Eosinophils/100 WBC (Bld) 0.8 % 0-5 [facility] Erythrocyte distribution wid th ratioOrdered By: Khushboo Dudley on 02-20-2025 Erythrocyte distribution width (RBC) [Ratio] 12.7 % 11.6-14.6 [facility] Erythrocyte distribution wid th standard deviationOrdered By: Khushboo Dudley on 02-20-2025 Erythrocyte distribution width (RBC) [Ratio] 45.8 fl High 35.1-43.9 [facility] Glomerular filtration rate ( GFR) estimation/1.73 sq m using serum, plasma, or whole bOrdered By: Khushboo Dudley on 02-20-2025 GFR/1.73 sq M.predicted among non-blacks MDRD (S/P/Bld) [Vol rate/Area] 73 mL/min/{1.73_m2} >60 [facility] Comment on above: mL/min/1.73m2 CKD-EP I Creatinine Equation (2020) Hematocrit Auto (Bld) [Volum e fraction]Ordered By: Khushboo Dudley on 02-20-2025 Hematocrit (Bld) [Volume fraction] 39.7 % 37-47 [facility] Hemoglobin measurementOrdere d By: Khushboo Dudley on 02-20-2025 Hemoglobin (Bld) [Mass/Vol] 13.1 g/dL 12.0-15.0 [facility] Immature granulocytes/100 WB C Auto (Bld)Ordered By: Khushboo Dudley on 02-20-2025 Immature granulocytes/100 WBC (Bld) 0.200 % 0.0-0.9 [facility] Comment on above: IG% - Immature Granu locytes (promyelocytes, myelocytes and metamyelocytes) > 1% indicates that a LEFT SHIFT is Present. L503.7505on 02-20-2025 Natriuretic peptide B (Bld) [Mass/Vol] 320 pg/mL Normal <=900 [facility] Comment on above: Result Comment: Hear t Failure Unlikely: < 300 pg/mL Heart Failure Likely < 50 Years: > 450 pg/mL 50-75 Years: > 900 pg/mL >75 Years: > 1800 pg/mL Performed By: #### L 501.9520, L503.7505, L500.4100, L100.0100, L500.4050 #### [facility] [address] [place], [place], [id number] LDL calc ser/plasOrdered By: Khushboo Dudley on 02-20-2025 Cholesterol in LDL [Mass/Vol] 123 mg/dL [facility] Comment on above: Ndjjbhlmzn=765-912 m g/dL & Higher Emik=863 mg/dL or greater Laboratory - Chemistry and C hemistry - challengeOrdered By: Khushboo Dudley on 02-20-2025 AST [Catalytic activity/Vol] 22 U/L <32 [facility] Lipid Profileon 02-20-2025 CHOL:HDL 3.33 Normal [facility] Comment on above: Performed By: #### L 501.9520, L503.7505, L500.4100, L100.0100, L500.4050 #### [facility] [address] [place], [address] Cholesterol [Mass/Vol] 188 mg/dL Normal <=200 [facility] Comment on above: Result Comment: Chol esterol level, Desirable <200 mg/dL Borderline high cholesterol 200-239 mg/dL High cholesterol >=240 mg/dL Recommendations of the NCEP Adult Treatment Panel for the following risk-cutoff thresholds for the [place] population. Performed By: #### L 501.9520, L503.7505, L500.4100, L100.0100, L500.4050 #### [facility] [address] [place], [address] Cholesterol in HDL [Mass/Vol] 57 mg/dL Normal [facility] Comment on above: Result Comment: Laila onal Cholesterol Education Program (NCEP) guidelines: <40 mg/dL: Low HDL-cholesterol (major risk factor for CHD) >= 60 mg/dL: High HDL-cholesterol (negative risk factor for CHD) HDL-cholesterol is affected by a number of factors, e.g. smoking, exercise, hormones, sex and age. Performed By: #### L 501.9520, L503.7505, L500.4100, L100.0100, L500.4050 #### [facility] [address] [place], [address] Cholesterol in LDL [Mass/Vol] 123 mg/dL Normal [facility] Comment on above: Result Comment: Bord pzkhdt=999-885 mg/dL Higher Ajso=220 mg/dL or greater Performed By: #### L 501.9520, L503.7505, L500.4100, L100.0100, L500.4050 #### [facility] [address] [place], [address] Cholesterol in VLDL [Mass/Vol] 9 mg/dL Normal 5-40 [facility] Comment on above: Performed By: #### L 501.9520, L503.7505, L500.4100, L100.0100, L500.4050 #### [facility] [address] [place], [address] Triglyceride [Mass/Vol] 44 mg/dL Normal [facility] Comment on above: Result Comment: The drugs N-Acetylcysteine and Metamizole may falsely depress this assay. Normal range: <150 mg/dL Borderline High: 150-199 mg/dL High: 200-499 mg/dL Very High: >500 mg/dL Performed By: #### L 501.9520, L503.7505, L500.4100, L100.0100, L500.4050 #### [facility] [address] [place], [address] MCV (mean corpuscular volume ) determinationOrdered By: Khushboo Dudley on 02-20-2025 MCV (RBC) [Entitic vol] 97.3 fL 81-99 [facility] Mean corpuscular hemoglobin (MCH) determinationOrdered By: Khushboo Dudley on 02-20-2025 MCH (RBC) [Entitic mass] 32.1 pg High 27.0-32.0 [facility] Mean corpuscular hemoglobin concentration (MCHC) determinationOrdered By: Khushboo Dudley on 02-20-2025 MCHC (RBC) [Mass/Vol] 33.0 g/dL 32-36 [facility] Mean platelet volume determi nationOrdered By: Khushboo Dudley on 02-20-2025 Platelet mean volume (Bld) [Entitic vol] 10.5 fL 6.2-12.0 [facility] Monocyte percentageOrdered B y: Khushboo Dudley on 02-20-2025 Monocytes/100 WBC (Bld) 9.4 % 0-10 [facility] Natriuretic peptide.B prohor roland N-Terminal [Mass/volume] in Serum or PlasmaOrdered By: Khushboo Dudley on 02-20-2025 Natriuretic peptide.B prohormone N-Terminal [Mass/Vol] 320 pg/mL <900 [facility] Comment on above: Heart Failure Unlike ly: < 300 pg/mLHeart Failure Likely< 50 Years: > 450 pg/mL50-75 Years: > 900 pg/mL>75 Years: > 1800 pg/mL Neutrophil percentageOrdered By: Khushboo Dudley on 02-20-2025 Neutrophils/100 WBC (Bld) 64.4 % 47-70 [facility] Nucleated red blood cell per centageOrdered By: Khushboo Dudley on 02-20-2025 Nucleated RBC/100 WBC (Bld) [Ratio] 0 % 0-5 [facility] Platelet countOrdered By: Hoang Dudley on 02-20-2025 Platelets (Bld) [#/Vol] 140 10*3/uL Low 150-450 [facility] Potassium measurement (mass/ volume)Ordered By: Khushboo Dudley on 02-20-2025 Potassium (Unsp spec) [Mass/Vol] 4.1 mmol/L 3.3-5.1 [facility] RBC Auto (Bld) [#/Vol]Ordere d By: Khushboo Dudley on 02-20-2025 RBC (Bld) [#/Vol] 4.08 10*6/uL Low 4.2-5.4 [facility] Screening total cholesterol/ high density lipoprotein (HDL) cholesterol ratioOrdered By: Khushboo Dudley on 02-20-2025 Cholesterol.total/Cholest ryan in HDL [Mass ratio] 3.33 {ratio} [facility] Serum creatinine measurement (mass/volume)Ordered By: Khushboo Dudley on 02-20-2025 Creatinine [Mass/Vol] 0.85 mg/dL 0.70-1.20 [facility] Serum globulin measurementOr dered By: Khushboo Dudley on 02-20-2025 Globulin (S) [Mass/Vol] 3.2 g/dL 2.2-4.2 [facility] Serum glucose measurement (m ass/volume)Ordered By: Khushboo Dudley on 02-20-2025 Glucose [Mass/Vol] 99 mg/dL 70-99 [facility] Serum or plasma alanine scott otransferase (ALT) measurementOrdered By: Khushboo Dudley on 02-20-2025 ALT [Catalytic activity/Vol] 13 U/L <35 [facility] Serum or plasma albumin hema urement (mass/volume)Ordered By: Khushboo Dudley on 02-20-2025 Albumin [Mass/Vol] 4.0 g/dL 3.4-4.8 [facility] Serum or plasma albumin/glob ulin mass ratioOrdered By: Khushboo Dudley on 02-20-2025 Albumin/Globulin [Mass ratio] 1.2 {ratio} 0.9-2.4 [facility] Serum or plasma alkaline erlin sphatase measurementOrdered By: Khushboo Dudley on 02-20-2025 ALP [Catalytic activity/Vol] 81 U/L 35-104 [facility] Serum or plasma calcium hema urement (mass/volume)Ordered By: Khushboo Dudley on 02-20-2025 Calcium [Mass/Vol] 9.1 mg/dL 7.6-11.0 [facility] Serum or plasma cholesterol in HDL measurement (mass/volume)Ordered By: Khushboo Dudley on 02-20-2025 Cholesterol in HDL [Mass/Vol] 57 mg/dL >40 [facility] Comment on above: National Cholesterol Education Program (NCEP) guidelines:<40 mg/dL: Low HDL-cholesterol (major risk factor for CHD)>= 60 mg/dL: High HDL-cholesterol (negative risk factor for CHD)HDL-cholesterol is affected by a number of factors, e.g. smoking, exercise, hormones, sex and age. Serum or plasma cholesterol measurement (mass/volume)Ordered By: Khushboo Dudley on 02-20-2025 Cholesterol [Mass/Vol] 188 mg/dL <201 [facility] Comment on above: Cholesterol level, D esirable <200 mg/dLBorderline high cholesterol 200-239 mg/dLHigh cholesterol >=240 mg/dLRecommendations of the NCEP Adult Treatment Panel for the following risk-cutoff thresholds for the [place] population. Serum or plasma urea nitroge n measurement (mass/volume)Ordered By: Khushboo Dudley on 02-20-2025 Urea nitrogen [Mass/Vol] 13 mg/dL 4-19 [facility] Sodium levelOrdered By: Donnie Dudley on 02-20-2025 Sodium [Moles/Vol] 141 mmol/L 133-145 [facility] TSH DL <= 0.005 mIU/L QnOrde red By: Khushboo Dudley on 02-20-2025 TSH Qn 1.440 uIU/mL 0.300-4.200 [facility] Thyroid Stim Hormone (TSH)on 02-20-2025 TSH 1.440 uIU/mL Normal 0.300-4.200 [facility] Comment on above: Performed By: #### L 501.9520, L503.7505, L500.4100, L100.0100, L500.4050 #### [facility] [place], [address] Total proteinOrdered By: Chandra Dudley on 02-20-2025 Protein [Mass/Vol] 7.2 g/dL 5.9-8.4 [facility] Triglycerides measurementOrd ered By: Khushboo Dudley on 02-20-2025 Triglyceride [Mass/Vol] 44 mg/dL <199 [facility] Comment on above: The drugs N-Acetylcy steine and Metamizole may falsely depress this assay. Normal range: <150 mg/dLBorderline High: 150-199 mg/dLHigh: 200-499 mg/dLVery High: >500 mg/dL White blood cell (WBC) count Ordered By: Khushboo Dudley on 02-20-2025 WBC (Bld) [#/Vol] 5.9 10*3/uL 4.4-11.0 [facility] CBC W/Diff, Automatedon 08-1 Absolute Lymph 1.29 X10 3/uL Normal 0.83-4.51 [facility] Comment on above: Performed By: #### L 500.4100, L501.9520, L500.4050, L100.0100 #### [facility] [address] [place], [address] Absolute Neut 3.3 X10 3/uL Normal 2.0-7.7 [facility] Comment on above: Performed By: #### L 500.4100, L501.9520, L500.4050, L100.0100 #### [facility] [address] [place], [address] Basophils/100 WBC (Bld) 0.6 % Normal 0-1 [facility] Comment on above: Performed By: #### L 500.4100, L501.9520, L500.4050, L100.0100 #### [facility] [address] [place], [address] Eosinophils/100 WBC (Bld) 1.3 % Normal 0-5 [facility] Comment on above: Performed By: #### L 500.4100, L501.9520, L500.4050, L100.0100 #### [facility] [address] [place], [address] Erythrocyte distribution width (RBC) [Ratio] 12.7 % Normal 11.6-14.6 [facility] Comment on above: Performed By: #### L 500.4100, L501.9520, L500.4050, L100.0100 #### [facility] [address] [place], [address] Hematocrit (Bld) [Volume fraction] 39.3 % Normal 37-47 [facility] Comment on above: Performed By: #### L 500.4100, L501.9520, L500.4050, L100.0100 #### [facility] [address] [place], [address] Hemoglobin (Bld) [Mass/Vol] 12.8 g/dL Normal 12.0-15.0 [facility] Comment on above: Performed By: #### L 500.4100, L501.9520, L500.4050, L100.0100 #### [facility] [address] [place], [address] IG% 0.400 Normal 0.0-0.9 [facility] Comment on above: Result Comment: IG% - Immature Granulocytes (promyelocytes, myelocytes and metamyelocytes) > 1% indicates that a LEFT SHIFT is Present. Performed By: #### L 500.4100, L501.9520, L500.4050, L100.0100 #### [facility] [address] [place], [address] Lymphocytes/100 WBC (Bld) 24.8 % Normal 19-41 [facility] Comment on above: Performed By: #### L 500.4100, L501.9520, L500.4050, L100.0100 #### [facility] [address] [place], [address] MCH (RBC) [Entitic mass] 31.8 pg Normal 27.0-32.0 [facility] Comment on above: Performed By: #### L 500.4100, L501.9520, L500.4050, L100.0100 #### [facility] [address] [place], [address] MCHC (RBC) [Mass/Vol] 32.6 g/dL Normal 32-36 [facility] Comment on above: Performed By: #### L 500.4100, L501.9520, L500.4050, L100.0100 #### [facility] [address] [place], [address] MCV (RBC) [Entitic vol] 97.8 fL Normal 81-99 [facility] Comment on above: Performed By: #### L 500.4100, L501.9520, L500.4050, L100.0100 #### [facility] [address] [place], [address] Monocytes/100 WBC (Bld) 9.4 % Normal 0-10 [facility] Comment on above: Performed By: #### L 500.4100, L501.9520, L500.4050, L100.0100 #### [facility] [address] [place], [address] Neutrophils/100 WBC (Bld) 63.5 % Normal 47-70 [facility] Comment on above: Performed By: #### L 500.4100, L501.9520, L500.4050, L100.0100 #### [facility] [address] [place], [address] Nucleated RBC (Bld) [#/Vol] 0 10*3/uL Normal 0-5 [facility] Comment on above: Performed By: #### L 500.4100, L501.9520, L500.4050, L100.0100 #### [facility] [address] [place], [address] Platelet mean volume (Bld) [Entitic vol] 10.3 fL Normal 6.2-12.0 [facility] Comment on above: Performed By: #### L 500.4100, L501.9520, L500.4050, L100.0100 #### [facility] [address] [place], [address] Platelets (Bld) [#/Vol] 133 10*3/uL Low 150-450 [facility] Comment on above: Performed By: #### L 500.4100, L501.9520, L500.4050, L100.0100 #### [facility] [address] [place], [address] RBC (Bld) [#/Vol] 4.02 10*6/uL Low 4.2-5.4 [facility] Comment on above: Performed By: #### L 500.4100, L501.9520, L500.4050, L100.0100 #### [facility] [address] [place], [address] RDW SD 45.3 fl High 35.1-43.9 [facility] Comment on above: Performed By: #### L 500.4100, L501.9520, L500.4050, L100.0100 #### [facility] [address] [place], [address] WBC (Bld) [#/Vol] 5.2 10*3/uL Normal 4.4-11.0 [facility] Comment on above: Performed By: #### L 500.4100, L501.9520, L500.4050, L100.0100 #### [facility] [address] [place], [address] Comprehensive Metabolic Prof [facility] 06-03-2024 Albumin [Mass/Vol] 3.3 g/dL Normal 3.2-5.0 [facility] Comment on above: Order Comment: CBCD Performed By: #### L 500.4100, L501.9520, L500.4050, L100.0100 #### [facility] [address] [place], [address] Albumin/Globulin [Mass ratio] 0.8 {ratio} Low 0.9-2.4 [facility] Comment on above: Order Comment: CBCD Performed By: #### L 500.4100, L501.9520, L500.4050, L100.0100 #### [facility] [address] [place], [address] ALK P 85 U/L Normal 45-117 [facility] Comment on above: Order Comment: CBCD Performed By: #### L 500.4100, L501.9520, L500.4050, L100.0100 #### [facility] [address] [place], [address] ALT [Catalytic activity/Vol] 21 U/L Normal 13-56 [facility] Comment on above: Order Comment: CBCD Performed By: #### L 500.4100, L501.9520, L500.4050, L100.0100 #### [facility] [address] [place], [address] AST [Catalytic activity/Vol] 15 U/L Normal 15-37 [facility] Comment on above: Order Comment: CBCD Performed By: #### L 500.4100, L501.9520, L500.4050, L100.0100 #### [facility] [address] [place], [address] Bilirubin [Mass/Vol] 0.40 mg/dL Normal 0.20-1.00 [facility] Comment on above: Order Comment: CBCD Result Comment: For patients on eltrombopag therapy, use of Dimension [place] TBIL is not recommended. Performed By: #### L 500.4100, L501.9520, L500.4050, L100.0100 #### [facility] [address] [place], [address] BUN/CRE 16.5 RATIO Normal 10-20 [facility] Comment on above: Order Comment: CBCD Performed By: #### L 500.4100, L501.9520, L500.4050, L100.0100 #### [facility] [address] [place], [address] CA,Total 8.6 mg/dL Normal 8.5-10.1 [facility] Comment on above: Order Comment: CBCD Performed By: #### L 500.4100, L501.9520, L500.4050, L100.0100 #### [facility] [address] [place], [address] Chloride [Moles/Vol] 110 mmol/L High 98-107 [facility] Comment on above: Order Comment: CBCD Performed By: #### L 500.4100, L501.9520, L500.4050, L100.0100 #### [facility] [address] [place], [address] CO2 [Moles/Vol] 27.0 mmol/L Normal 21.0-32.0 [facility] Comment on above: Order Comment: CBCD Performed By: #### L 500.4100, L501.9520, L500.4050, L100.0100 #### [facility] [address] [place], [address] Creatinine [Mass/Vol] 0.91 mg/dL Normal 0.55-1.02 [facility] Comment on above: Order Comment: CBCD Result Comment: The validity of the calculated GFR GFRAA in patients over 70 years has not been determined. Clinical correlation is essential. Performed By: #### L 500.4100, L501.9520, L500.4050, L100.0100 #### [facility] [address] [place], [address] EST GFR - AA 78 mL/min Normal >60 [facility] Comment on above: Order Comment: CBCD Result Comment: Afri can Malagasy GFR Calc Performed By: #### L 500.4100, L501.9520, L500.4050, L100.0100 #### [facility] [address] [place], [address] GAP 3 Low 5-15 [facility] Comment on above: Order Comment: CBCD Performed By: #### L 500.4100, L501.9520, L500.4050, L100.0100 #### [facility] [address] [place], [address] GFR/1.73 sq M.predicted among non-blacks MDRD (S/P/Bld) [Vol rate/Area] 65 mL/min/{1.73_m2} Normal >60 [facility] Comment on above: Order Comment: CBCD Result Comment: Non- GFR Calc Performed By: #### L 500.4100, L501.9520, L500.4050, L100.0100 #### [facility] [address] [place], [address] Globulin (S) [Mass/Vol] 4.1 g/dL Normal 2.2-4.2 [facility] Comment on above: Order Comment: CBCD Performed By: #### L 500.4100, L501.9520, L500.4050, L100.0100 #### [facility] [address] [place], [address] Glucose [Mass/Vol] 107 mg/dL High 74-106 [facility] Comment on above: Order Comment: CBCD Result Comment: Fast ing Glucose result from 100 to 125 mg/dL suggests IMPAIRED HOMEOSTASIS per A.D.A. criteria. Performed By: #### L 500.4100, L501.9520, L500.4050, L100.0100 #### [facility] [address] [place], [address] Potassium [Moles/Vol] 4.2 mmol/L Normal 3.5-5.1 [facility] Comment on above: Order Comment: CBCD Performed By: #### L 500.4100, L501.9520, L500.4050, L100.0100 #### [facility] [address] [place], [address] Sodium [Moles/Vol] 140 mmol/L Normal 136-145 [facility] Comment on above: Order Comment: CBCD Performed By: #### L 500.4100, L501.9520, L500.4050, L100.0100 #### [facility] [address] [place], [address] T PROT 7.4 g/dL Normal 6.4-8.2 [facility] Comment on above: Order Comment: CBCD Performed By: #### L 500.4100, L501.9520, L500.4050, L100.0100 #### [facility] [address] [place], [address] Urea nitrogen [Mass/Vol] 15 mg/dL Normal 7-18 [facility] Comment on above: Order Comment: CBCD Performed By: #### L 500.4100, L501.9520, L500.4050, L100.0100 #### [facility] [address] [place], [address] Lipid Profileon 06-03-2024 Cholesterol [Mass/Vol] 168 mg/dL Normal 200 [facility] Comment on above: Order Comment: CBCD Result Comment: <200 mg/dL Desirable 200-240 mg/dL Borderline >240 mg/dL High Risk Performed By: #### L 500.4100, L501.9520, L500.4050, L100.0100 #### [facility] [address] [place], [address] Cholesterol in HDL [Mass/Vol] 60 mg/dL Normal [facility] Comment on above: Order Comment: CBCD Result Comment: The drugs N-Acetylcysteine and Metamizole may falsely depress this assay. Reference Range HDL <40 mg/dL Low HDL Cholesterol HDL >or= 60 mg/dL High HDL Cholesterol Performed By: #### L 500.4100, L501.9520, L500.4050, L100.0100 #### [facility] [address] [place], [address] Cholesterol in LDL [Mass/Vol] 98 mg/dL Normal 0-130 [facility] Comment on above: Order Comment: CBCD Performed By: #### L 500.4100, L501.9520, L500.4050, L100.0100 #### [facility] [address] [place], [address] Cholesterol in VLDL [Mass/Vol] 10 mg/dL Normal 5-40 [facility] Comment on above: Order Comment: CBCD Performed By: #### L 500.4100, L501.9520, L500.4050, L100.0100 #### [facility] [address] [place], [address] Triglyceride [Mass/Vol] 48 mg/dL Normal [facility] Comment on above: Order Comment: CBCD Result Comment: The drugs N-Acetylcysteine and Metamizole may falsely depress this assay. Serum Triglycerides Reference Interval Normal <150 mg/dL Borderline high 150 - 199 mg/dL High 200 - 499 mg/dL Very High > or = 500 mg/dL Performed By: #### L 500.4100, L501.9520, L500.4050, L100.0100 #### [facility] [address] [place], [address] Thyroid Stim Hormone (TSH)on 06-03-2024 TSH 1.540 uIU/mL Normal 0.358-3.740 [facility] Comment on above: Order Comment: CBCD Performed By: #### L 500.4100, L501.9520, L500.4050, L100.0100 #### [facility] [address] [place], [address] Absolute lymphocyte countOrd ered By: Khushboo Dudley on 06-15-2023 Lymphocytes Auto (Unsp spec) [#/Vol] 1.30 10*3/uL 0.83-4.51 [facility] Basophil percentageOrdered B y: Khushboo Dudley on 06-15-2023 Basophils/100 WBC (Bld) 0.6 % 0-1 [facility] Bilirubin [Mass/Vol] 0.30 mg/dL 0.20-1.00 [facility] Comment on above: For patients on eltr ombopag therapy, use of Dimension [place] TBIL is not recommended. Chloride [Moles/Vol] 109 mmol/L 98-107 [facility] Cholesterol [Mass/Vol] 160 mg/dL <200 [facility] Comment on above: <200 mg/dL Desirable 200-240 mg/dL Borderline >240 mg/dL High Risk Eosinophils/100 WBC (Bld) 2.3 % 0-5 [facility] Glucose [Mass/Vol] 87 mg/dL 74-106 [facility] Neutrophils (Bld) [#/Vol] 3.2 10*3/uL 2.0-7.7 [facility] Neutrophils/100 WBC (Bld) 61.8 % 47-70 [facility] Potassium [Moles/Vol] 4.3 mmol/L 3.5-5.1 [facility] Protein [Mass/Vol] 7.2 g/dL 6.4-8.2 [facility] Sodium [Moles/Vol] 140 mmol/L 136-145 [facility] Triglyceride [Mass/Vol] 49 mg/dL <199 [facility] Comment on above: The drugs N-Acetylcy steine and Metamizole may falsely depress this assay.Serum Triglycerides Reference Interval Normal <150 mg/dL Borderline high 150 - 199 mg/dL High 200 - 499 mg/dL Very High > or = 500 mg/dL WBC (Bld) [#/Vol] 5.2 10*3/uL 4.4-11.0 [facility] Blood erythrocytes count (nu mber/volume)Ordered By: Khushboo Dudley on 06-15-2023 RBC (Bld) [#/Vol] 3.89 10*6/uL 4.2-5.4 [facility] Blood hemoglobin measurement (mass/volume)Ordered By: Khushboo Dudley on 06-15-2023 Hemoglobin (Bld) [Mass/Vol] 12.4 g/dL 12.0-15.0 [facility] Blood lymphocytes/100 leukoc ytesOrdered By: Khushboo Dudley on 06-15-2023 Lymphocytes/100 WBC (Bld) 24.8 % 19-41 [facility] Blood monocytes/100 leukocyt esOrdered By: Khushbooabelardo Dudley on 06-15-2023 Monocytes/100 WBC (Bld) 10.3 % 0-10 [facility] Blood platelet mean volumeOr dered By: Khushboo Dudley on 06-15-2023 Platelet mean volume (Bld) [Entitic vol] 10.5 fL 6.2-12.0 [facility] Determination of erythrocyte mean corpuscular volume (MCV)Ordered By: Khushboo Dudley on 06-15-2023 MCV (RBC) [Entitic vol] 99.5 fL 81-99 [facility] Hematocrit Auto (Bld) [Volum e fraction]Ordered By: Khushboo Octavia on 06-15-2023 Hematocrit (Bld) [Volume fraction] 38.7 % 37-47 [facility] - Chemistry and C hemistry - challengeOrdered By: Khushboo Dudley on 06-15-2023 ALP [Catalytic activity/Vol] 75 U/L 45-117 [facility] ALT [Catalytic activity/Vol] 23 U/L 13-56 [facility] CO2 [Moles/Vol] 25.0 mmol/L 21.0-32.0 [facility] Globulin (S) [Mass/Vol] 3.9 g/dL 2.2-4.2 [facility] Urea nitrogen/Creatinine [Mass ratio] 17.8 mg/mg 10-20 [facility] - Hematology and Cell countsOrdered By: Khushboo Octavia on 06-15-2023 Erythrocyte distribution width (RBC) [Entitic vol] 47.9 fL 35.1-43.9 [facility] Erythrocyte distribution width (RBC) [Ratio] 13.1 % 11.6-14.6 [facility] Immature granulocytes/100 WBC (Bld) 0.200 % 0.0-0.9 [facility] Comment on above: IG% - Immature Granu locytes (promyelocytes, myelocytes and metamyelocytes) > 1% indicates that a LEFT SHIFT is Present. MCH (RBC) [Entitic mass] 31.9 pg 27.0-32.0 [facility] Nucleated RBC/100 WBC (Bld) [Ratio] 0 % 0-5 [facility] MCHC Auto (RBC) [Mass/Vol]Or dered By: Khushboo Dudley on 06-15-2023 MCHC (RBC) [Mass/Vol] 32.0 g/dL 32-36 [facility] No Panel InformationOrdered By: Khushboo Dudley on 06-15-2023 Estimated GFR (MDRD) Amer 86 mL/min >60 [facility] Comment on above: GFR Calc Estimated GFR (MDRD) Non-Af Amer 71 mL/min >60 [facility] Comment on above: Non- GFR Calc Thyroid Stimulating Hormone (TSH) 0.40 uIU/mL 0.358-3.74 [facility] Platelets bldOrdered By: Chandra Dudley on 06-15-2023 Platelets (Bld) [#/Vol] 129 10*3/uL 150-450 [facility] Serum or plasma albumin hema urement (mass/volume)Ordered By: Khushboo Dudley on 06-15-2023 Albumin [Mass/Vol] 3.3 g/dL 3.2-5.0 [facility] Serum or plasma albumin/glob ulin mass ratioOrdered By: Khushboo Dudley on 06-15-2023 Albumin/Globulin [Mass ratio] 0.8 {ratio} 0.9-2.4 [facility] Serum or plasma calcium hema urement (mass/volume)Ordered By: Khushboo Dudley on 06-15-2023 Calcium [Mass/Vol] 8.6 mg/dL 8.5-10.1 [facility] Serum or plasma cholesterol in HDL measurement (mass/volume)Ordered By: Khushboo Dudley on 06-15-2023 Cholesterol in HDL [Mass/Vol] 54 mg/dL >40 [facility] Comment on above: The drugs N-Acetylcy steine and Metamizole may falsely depress this assay. Reference Range HDL <40 mg/dL Low HDL Cholesterol HDL >or= 60 mg/dL High HDL Cholesterol Serum or plasma cholesterol in VLDL measurement (mass/volume)Ordered By: Khushboo Dudley on 06-15-2023 Cholesterol in VLDL [Mass/Vol] 10 mg/dL 5-40 [facility] Serum or plasma creatinine m easurement (mass/volume)Ordered By: Khushboo Dudley on 06-15-2023 Creatinine [Mass/Vol] 0.84 mg/dL 0.55-1.02 [facility] Comment on above: The validity of the calculated GFR & GFRAA in patients over 70 years has not been determined. Clinical correlation is essential. Serum or plasma low density lipoprotein (LDL) cholesterol measurement (mass/volume)Ordered By: Khushboo Dudley on 06-15-2023 Cholesterol in LDL [Mass/Vol] 96 mg/dL 0-130 [facility] Serum or plasma urea nitroge n measurement (mass/volume)Ordered By: Khushboo Dudley on 06-15-2023 Urea nitrogen [Mass/Vol] 15 mg/dL 7-18 [facility] Thin prep Papanicolaou smear with manual screeningOrdered By: Khushboo Dudley on 06-15-2023 Thin prep Papanicolaou smear with manual screening 18 U/L 15-37 [facility] Thin prep Papanicolaou smear with manual screening 6 5-15 [facility] Absolute lymphocyte counton 06-23-2022 Lymphocytes Auto (Unsp spec) [#/Vol] 1.50 10*3/uL 0.83-4.51 [facility] Work Phone: Basophil percentageon 2021 Basophils/100 WBC (Bld) 0.6 % 0-1 [facility] Work Phone: Bilirubin [Mass/Vol] 0.50 mg/dL 0.20-1.00 [facility] Work Phone: Comment on above: For patients on eltr ombopag therapy, use of Dimension [place] TBIL is not recommended. Chloride [Moles/Vol] 110 mmol/L 98-107 [facility] Work Phone: Cholesterol [Mass/Vol] 185 mg/dL <200 [facility] Work Phone: Comment on above: <200 mg/dL Desirable 200-240 mg/dL Borderline >240 mg/dL High Risk Eosinophils/100 WBC (Bld) 1.9 % 0-5 [facility] Work Phone: Glucose [Mass/Vol] 93 mg/dL 74-106 [facility] Work Phone: Neutrophils (Bld) [#/Vol] 3.2 10*3/uL 2.0-7.7 [facility] Work Phone: Neutrophils/100 WBC (Bld) 60.9 % 47-70 [facility] Work Phone: Potassium [Moles/Vol] 3.9 mmol/L 3.5-5.1 [facility] Work Phone: Protein [Mass/Vol] 7.5 g/dL 6.4-8.2 [facility] Work Phone: Sodium [Moles/Vol] 143 mmol/L 136-145 [facility] Work Phone: Triglyceride [Mass/Vol] 50 mg/dL <199 [facility] Work Phone: Comment on above: The drugs N-Acetylcy steine and Metamizole may falsely depress this assay.Serum Triglycerides Reference Interval Normal <150 mg/dL Borderline high 150 - 199 mg/dL High 200 - 499 mg/dL Very High > or = 500 mg/dL WBC (Bld) [#/Vol] 5.3 10*3/uL 4.4-11.0 [facility] Work Phone: Blood erythrocytes count (nu mber/volume)on 06-23-2022 RBC (Bld) [#/Vol] 3.99 10*6/uL 4.2-5.4 [facility] Work Phone: Blood hemoglobin measurement (mass/volume)on 06-23-2022 Hemoglobin (Bld) [Mass/Vol] 13.1 g/dL 12.0-15.0 [facility] Work Phone: Blood lymphocytes/100 leukoc yteson 06-23-2022 Lymphocytes/100 WBC (Bld) 28.3 % 19-41 [facility] Work Phone: Blood monocytes/100 leukocyt eson 06-23-2022 Monocytes/100 WBC (Bld) 8.1 % 0-10 [facility] Work Phone: Blood platelet mean volumeon 06-23-2022 Platelet mean volume (Bld) [Entitic vol] 10.3 fL 6.2-12.0 [facility] Work Phone: Determination of erythrocyte mean corpuscular volume (MCV)on 06-23-2022 MCV (RBC) [Entitic vol] 98.2 fL 81-99 [facility] Work Phone: Hematocrit Auto (Bld) [Volum e fraction]on 06-23-2022 Hematocrit (Bld) [Volume fraction] 39.2 % 37-47 [facility] Work Phone: Laboratory - Chemistry and C hemistry - challengeon 06-23-2022 ALP [Catalytic activity/Vol] 75 U/L 45-117 [facility] Work Phone: ALT [Catalytic activity/Vol] 21 U/L 13-56 [facility] Work Phone: CO2 [Moles/Vol] 26.0 mmol/L 21.0-32.0 [facility] Work Phone: Globulin (S) [Mass/Vol] 4.1 g/dL 2.2-4.2 [facility] Work Phone: Urea nitrogen/Creatinine [Mass ratio] 13.8 mg/mg 10-20 [facility] Work Phone: Laboratory - Hematology and Cell countson 06-23-2022 Erythrocyte distribution width (RBC) [Entitic vol] 47.4 fL 35.1-43.9 [facility] Work Phone: Erythrocyte distribution width (RBC) [Ratio] 13.1 % 11.6-14.6 [facility] Work Phone: Immature granulocytes/100 WBC (Bld) 0.200 % 0.0-0.9 [facility] Work Phone: Comment on above: IG% - Immature Granu locytes (promyelocytes, myelocytes and metamyelocytes) > 1% indicates that a LEFT SHIFT is Present. MCH (RBC) [Entitic mass] 32.8 pg 27.0-32.0 [facility] Work Phone: Nucleated RBC/100 WBC (Bld) [Ratio] 0 % 0-5 [facility] Work Phone: MCHC Auto (RBC) [Mass/Vol]on 06-23-2022 MCHC (RBC) [Mass/Vol] 33.4 g/dL 32-36 [facility] Work Phone: No Panel Informationon 06-23 Estimated GFR (MDRD) Amer 92 mL/min >60 [facility] Work Phone: Comment on above: GFR Calc Estimated GFR (MDRD) Non-Af Amer 76 mL/min >60 [facility] Work Phone: Comment on above: Non- GFR Calc Thyroid Stimulating Hormone (TSH) 1.33 uIU/mL 0.358-3.74 [facility] Work Phone: Platelets bldon 06-23-2022 Platelets (Bld) [#/Vol] 140 10*3/uL 150-450 [facility] Work Phone: Serum or plasma albumin hema urement (mass/volume)on 06-23-2022 Albumin [Mass/Vol] 3.4 g/dL 3.2-5.0 [facility] Work Phone: Serum or plasma albumin/glob ulin mass ratioon 06-23-2022 Albumin/Globulin [Mass ratio] 0.8 {ratio} 0.9-2.4 [facility] Work Phone: Serum or plasma calcium hema urement (mass/volume)on 06-23-2022 Calcium [Mass/Vol] 8.7 mg/dL 8.5-10.1 [facility] Work Phone: Serum or plasma cholesterol in HDL measurement (mass/volume)on 06-23-2022 Cholesterol in HDL [Mass/Vol] 61 mg/dL >40 [facility] Work Phone: Comment on above: The drugs N-Acetylcy steine and Metamizole may falsely depress this assay. Reference Range HDL <40 mg/dL Low HDL Cholesterol HDL >or= 60 mg/dL High HDL Cholesterol Serum or plasma cholesterol in VLDL measurement (mass/volume)on 06-23-2022 Cholesterol in VLDL [Mass/Vol] 10 mg/dL 5-40 [facility] Work Phone: Serum or plasma creatinine m easurement (mass/volume)on 06-23-2022 Creatinine [Mass/Vol] 0.80 mg/dL 0.55-1.02 [facility] Work Phone: Comment on above: The validity of the calculated GFR & GFRAA in patients over 70 years has not been determined. Clinical correlation is essential. Serum or plasma low density lipoprotein (LDL) cholesterol measurement (mass/volume)on 06-23-2022 Cholesterol in LDL [Mass/Vol] 114 mg/dL 0-130 [facility] Work Phone: Serum or plasma urea nitroge n measurement (mass/volume)on 06-23-2022 Urea nitrogen [Mass/Vol] 11 mg/dL 7-18 [facility] Work Phone: Thin prep Papanicolaou smear with manual screeningon 06-23-2022 Thin prep Papanicolaou smear with manual screening 13 U/L 15-37 [facility] Work Phone: Thin prep Papanicolaou smear with manual screening 7 5-15 [facility] Work Phone: Vital Signs Date Time Vital Sign Value Performing Clinician Faci brianna 03-28-2025 17:52-0400 Body temperature 98.4 [degF] Dr. Khushboo Dudley MD Work Phone: [facility] 03-28-2025 17:52-0400 Diastolic blood pressure 71 mm[Hg] Dr. Khushboo Dudley MD Work Phone: [facility] 03-28-2025 17:52-0400 Heart rate 79 /min Dr. Khushboo Dudley MD Work Phone: [facility] 03-28-2025 17:52-0400 Respiratory rate 19 /min Dr. Khushboo Dudley MD Work Phone: [facility] 03-28-2025 17:52-0400 SaO2% (BldA) [Mass fraction] 100 % Dr. Khushboo Dudley MD Work Phone: [facility] 03-28-2025 17:52-0400 Systolic blood pressure 129 mm[Hg] Dr. Khushboo Dudley MD Work Phone: [facility] 03-28-2025 14:23-0400 Body height 165.[address] Khushboo Dudley MD Work Phone: [facility] 03-28-2025 14:23-0400 Body mass index (BMI) [Ratio] 37.2 kg/m2 Dr. Khushboo Dudley MD Work Phone: [facility] 03-28-2025 14:23-0400 Body weight 101.[address] Khushboo Dudley MD Work Phone: [facility] 09-01-2022 09:05-0500 Body temperature 98.6 [degF] Dr. Khushboo Dudley Work Phone: [facility] Work Phone: 09-01-2022 09:05-0500 Diastolic blood pressure 73 mm[Hg] Dr. Khushboo Dudley Work Phone: [facility] Work Phone: 09-01-2022 09:05-0500 Heart rate 64 /min Dr. Khushboo Dudley Work Phone: [facility] Work Phone: 09-01-2022 09:05-0500 Respiratory rate 18 /min Dr. Khushboo Dudley Work Phone: [facility] Work Phone: 09-01-2022 09:05-0500 SaO2% (BldA) [Mass fraction] 99 % Dr. Khushboo Dudley Work Phone: [facility] Work Phone: 09-01-2022 09:05-0500 Systolic blood pressure 129 mm[Hg] Dr. Khushboo Dudley Work Phone: [facility] Work Phone: 09-01-2022 07:38-0500 Body height 165.[address] Khushboo Dudley Work Phone: [facility] Work Phone: 09-01-2022 07:38-0500 Body mass index (BMI) [Ratio] 36.6 kg/m2 Dr. Khushboo Dudley Work Phone: [facility] Work Phone: 09-01-2022 07:38-0500 Body weight [address] Khushboo Dudley Work Phone: [facility] Work Phone: 06-28-2022 09:23-0400 Body height 165.[address] Khushboo Dudley Work Phone: [facility] Work Phone: 06-28-2022 09:23-0400 Body mass index (BMI) [Ratio] 36.9 kg/m2 Dr. Khushboo Dudley Work Phone: [facility] Work Phone: 06-28-2022 09:23-0400 Body weight 100.[address] Khushboo Dudley Work Phone: [facility] Work Phone: Encounters Encounter Date Encounter Type Care Provider Facility Start: 03-28-2025 Evaluation and management of inpatient Dr. Loren De Souza MD -Progressive Care Unit Work Phone: Start: 03-27-2025 Non-patient / Non-visit Dr. Robbi alex MD -[facility] Start: 03-27-2025 ambulatory Khushboo Micaleb Facility: [facility] Start: 03-27-[address] Khushboo Dudley MD -Cardiovascular Services Work Phone: Start: 03-18-2025 End: 03-18-[address] Khushboo Dudley MD Work Phone: [facility] Work Phone: Start: 03-18-2025 End: 03-18-[address] Khushboo Dudley MD -[facility] Work Phone: Start: 03-18-2025 End: 03-18-2025 ambulatory Khushboo Hopper Facility:[facility] Start: 03-07-2025 End: 03-07-[address] Khushboo Dudley MD Work Phone: [facility] Work Phone: Start: 03-07-2025 End: 03-07-[address] Khushboo Dudley MD -Cardiovascular Services Work Phone: Start: 03-07-2025 End: 03-07-2025 ambulatory Khushboo Dudley Facility:[facility] Start: 02-20-2025 End: 02-20-[address] Khushboo Dudley MD Work Phone: [facility] Work Phone: Start: 02-20-2025 End: 02-20-[address] Khushboo Dudley MD -Laboratory, [place] Work Phone: Start: 02-20-2025 End: 02-20-2025 ambulatory Khushboo Dudley Facility:[facility] Start: 06-03-2024 End: 06-03-2024 ambulatory Khushboo Dudley Facility:[facility] Start: 12-08-2023 End: 12-08-2023 ambulatory [facility] Work Phone: Start: 12-08-2023 End: 12-08-2023 Patient encounter procedure [facility] Work Phone: Start: 06-15-2023 End: 06-15-2023 ambulatory [facility] Work Phone: Start: 06-15-2023 End: 06-15-2023 Patient encounter procedure [facility] Start: 09-01-2022 Non-patient / Non-visit Dr. Hoang Dudley Work Phone: [facility] Start: 09-01-2022 End: 09-01-2022 Admission to same day surgery center Dr. Khushboo Dudley Work Phone: [facility]-Endoscopy Start: 09-01-2022 End: 09-01-[address] Khushboo Dudley Work Phone: [facility] Work Phone: Start: 07-04-2022 End: 07-04-[address] Khushboo Dudley Work Phone: [facility] Work Phone: Start: 07-04-2022 End: 07-04-[address] Khushboo Dudley Work Phone: [facility]-Outpatient [facility] Imaging Start: 06-28-2022 Non-patient / Non-visit Dr. Hoang Dudley Work Phone: [facility] Start: 06-23-2022 End: 06-23-2022 ambulatory [facility] Work Phone: Start: 06-23-2022 End: 06-23-2022 Patient encounter procedure [facility], [place] Procedures Date Procedure Procedure Detail Performing Clinician Start: 03-28-2025 Plain chest X-ray Dr. Scott Dudley MD Work Phone: Start: 03-28-[address] Khushboo Dudley MD Work Phone: Start: 03-27-2025 Cardiovascular stres s test using pharmacologic stress agent Dr. Khushboo Dudley MD Work Phone: Start: 03-18-[address] Khushboo Dudley MD Work Phone: Start: 03-07-2025 Screening mammography Ashley Dudley MD Work Phone: Start: 12-08-2023 Screening mammography Start: 09-01-[address] Khushboo Dudley Work Phone: Start: 07-04-2022 Screening mammography Ashley Dudley Work Phone: Plan of Treatment Date Care Activity Detail Author Start: 03-28-2025 Admission procedure [facility] Start: 03-28-2025 Hospital admission, emergency, from emergency room, medical nature [facility] Start: 03-28-2025 [facility] Start: 09-01-2022 Patient discharge [facility] Work Phone: [facility] Work Phone: Hemoglobin A1c/Hemog lobin.total in Blood [facility] Patient referral [facility] Work Phone: Troponin T.cardiac [Mass/volume] in Serum or Plasma by High sensitivity method [facility] Payers Date Payer Category Payer Medicare [id number] [facility] [id number] 2024 Self-pay [id number] 2024 Unknown [id number] Unknown [id number] Unknown [id number] Unknown [id number] Unknown [id number] Unknown [id number] Social History Date Type Detail Facility Start: 08-02-2021 End: 08-29-2022 Tobacco smoking status [facility] Unknown if ever smoked [facility] Start: 03-14-2018 Cigarettes [facility] Start: 1955 Sex Assigned At Female [facility] Start: 08-29-2022 End: 03-28-2025 Tobacco smoking status IAIS Ex-smoker (finding) [facility] Medical Equipment Procedure Code Equipment Code Equipment [...] /State Mental Status Date Assessment Result Facility 03-28-2025 Cognitive function Voice/Name [facility] Work Phone: 09-01-2022 Cognitive function Level Of Consciousness Awake [facility] Work Phone: Radiology Diagnostic study note 03-28-2025 Note Date & Type Note Facility 03-28-2025 Radiology Diagnostic study note [facility] Imaging Services [address] [place] [address] Chest 1 View (Portable) MR#: [id number] Acct: [id number] Name: GUMARO CARRASQUILLO Rep #: [id number] : [id number] F [id number] From: Debra Bosch MD PCP: Dr. Khushboo Dudley MD Status: REG ER Study:Chest 1 View (Portable) Date of Exam: 03/28/25 Exam# [id number] Ordering Dr: Davey Bosch DO EXAM: XR Chest, 1 View CLINICAL INDICATION: CHEST PAIN TECHNIQUE: Frontal view of the chest. COMPARISON: No relevant prior studies available. FINDINGS: LUNGS AND PLEURAL SPACES: See below. HEART: Cardiomegaly with mild congestion. MEDIASTINUM: Unremarkable. Normal mediastinal contour. BONES/JOINTS: Unremarkable. No acute fracture. RAD/Chest 1 View (Portable) IMPRESSION: Cardiomegaly with mild congestion. Reading Location: [facility], [facility] CC: Dr. Kuhshboo Dudley MD; Dr. Davey Bosch DO ~ Boxing Instructor: Signed [facility] Radiology Diagnostic study note 03-19-2025 Note Date & Type Note Facility 03-19-2025 Radiology Diagnostic study note [facility] Imaging Services [address] [place] [address] Breast Limited Unilateral MR#: [id number] Acct: [id number] Name: GUMARO CARRASQUILLO Rep #: [id number] : [id number] F [id number] From: Zofia Banerjee MD PCP: Dr. Khushboo Dudley MD Status: REG CLI Study:Breast Limited Unilateral Date of Exam: 03/18/25 Exam# [id number] Ordering Dr: Scott Dudley MD PROCEDURE: BREAST [...] BENIGN. RECOMMEND ANNUAL MAMMOGRAPHIC SCREENING. Reading Location: [id number] CC: Dr. Khushboo Dudley MD ~ Boxing Instructor: Signed [facility] Evaluation note Note Date & Type Note Facility Evaluation note No assessment information availa ble [facility] Work Phone: Evaluation note Note Date & Type Note Facility Evaluation note Diagnosis Onset Date Encounter for screening for malignant neoplasm of colon acute [facility] Work Phone: Reason for referral (narrative) Note Date & Type Note Facility Reason for referral (narrative) No reason for referral information available [facility] Work Phone: Family History Relationship Condition Age at Onset Recorded Date/T tutu mother Malignant neoplasm Unknown Diabetes mellitus Unknown father Hypertension Unknown brother Diabetes mellitus Unknown Relationship Condition Age at Onset Recorded Date/T tutu mother Malignant neoplasm Unknown Diabetes mellitus Unknown Polyp of colon Unknown father Hypertension Unknown brother Diabetes mellitus Unknown Advance Directives Advance Directive Response Recorded Date/ Time Living Will Yes August 09 7:00pm Power of Promotion Manager Yes August 09, 2021 7:00pm Advance Directive Response Recorded Date/ Time Name of Medical Power of Promotion Manager SPOUSE August 29, 2022 4:00pm Living Will Yes August 29, 4:00pm Power of Promotion Manager Yes August 29, 2022 4:00pm Advance Directive Response Recorded Date/ Time Living Will Yes August 29, 2 022 5:00pm Power of Promotion Manager Yes August 29, 2022 5:00pm Advance Directive Response Recorded Date/ Time Living Will Yes August 29, 022 4:00pm Power of Promotion Manager Yes August 29, 2022 4:00pm Advance Directive Response Recorded Date/ Time Do you have a Healthcare Power of Promotion Manager? Yes March 28, 2025 3:02pm Chief Complaint and Reason for Visit Chief [...] RT BREAST March 18, 2025 9:20a m Chief Complaint Admit Date SCREENING; CHEST PAIN March 07, 2025 12: 54pm ABN MAMM RT BREAST March 18, 2025 9:20a m Chest Pain March 27, 2025 6:21 am Chest Pain March 27, 2025 1:35 pm CHEST PAIN March 28, 2025 5:41 pm Summary Purpose Additional Source Comments Goals (unrecognized [...] March 18, 2025 End: March 18, 2025 Team Status: Active Member Role Status Dates Dr. Khushboo Dudley MD Primary Care Provider Active Start: March 27, 2025 Dr. Khushboo Dudley MD Attending Provider Active Start: March 27, 2025 Dr. Khushboo Dudley MD Referring Provider Active Start: March 27, 2025 Team Status: Active Member Role Status Dates Dr. Khushboo Dudley MD Primary Care Provider Active Start: March 27, 2025 Dr. Khushboo Dudley MD Referring Provider Active Start: March 27, 2025 Dr. Khushboo Dudley MD Other Provider Active Sta rt: March 27, 2025 Dr. Robbi Yu MD Attending Provider Active Start: March 27, 2025 Team Status: Active Member Role Status Dates Dr. Khushboo Dudley MD Primary Care Provider Active Start: March 28, 2025 Dr. Davey Bosch DO Emergency Provider Active Start : March 28, 2025 Dr. Loren De Souza MD Admit Provider Active St art: March 28, 2025 Dr. Loren De Souza MD Attending Provider Active Start: March 28, 2025 INFORMATION SOURCE (unrecogn ized section and content) DATE CREATED AUTHOR 03/23/2025 [facility] FOR RECORDS PERTAINING TO PATIENTS WHO ARE [...] BE BASED ON THE PRIMARY CLINICAL RECORDS. [facility] [employer] [facility]. provides no warranty or guarantee of the accuracy or completeness of information in this document.
[2025-03-28 19:52] LABS: Troponin T High Sens 4 HR 9 ng/L (<=14)
[2025-03-28 19:53] LABS: Cholesterol 166 mg/dL (<=200); High Density Lipoprotein 56 mg/dL; Low Density Lipoprotein Calc. 100 mg/dL; Triglycerides 54 mg/dL; Very Low Density Lipoprotein 11 mg/dL (5-40); cholesterol:hdl ratio screen 2.98
[2025-03-28] MEDS: Atenolol 50 MG Tablet PO (22:30)
[2025-03-28] MEDS: Atorvastatin Calcium 40 MG Tablet PO (22:30)
[2025-03-29 03:00] VITALS: PULSE 49
[2025-03-29 03:23] VITALS: BP 151/78; PULSE 51; RESP 16; TEMP 36.6; O2SAT 95
[2025-03-29 05:46] LABS: Absolute Neutrophil Count 4.4 X10^3/uL (2.0-7.7); Basophil# 0.02 X10^3/uL; Basophil% 0.3 % (0-1); Eosinophil# 0.07 X10^3/uL; Eosinophils% 1.1 % (0-5); Hematocrit 33.9 % (37-47); Hemoglobin 11.5 g/dL (12.0-15.0); Lymphocyte % 18.9 % (19-41); Mean Corp Hgb Conc 33.9 g/dL (32-36); Mean Corpuscular Hgb 32.4 pg (27.0-32.0); Mean Corpuscular Volume 95.5 fL (81-99); Mean Platelet Vol. 10.1 fl (6.2-12.0); Monocyte% 9.4 % (0-10); NRBC Flagged by Analyzer 0 % (0-5); Neutrophil # 4.44 X10^3/uL (2.7-7.7); Neutrophil % 69.8 % (47-70); Platelet Count 116 K/mm3 (150-450); RBC Distribution Width CV 12.7 % (11.6-14.6); RBC Distribution Width SD 44.3 fl (35.1-43.9); Red Blood Count 3.55 M/mm3 (4.2-5.4); White Blood Count 6.4 K/mm3 (4.4-11.0)
[2025-03-29] MEDS: Levothyroxine 75 MCG Tablet PO (05:54)
--- NOTE | 2025-03-29 05:55 | ECHOD_ITS ---
Reason For Study Reason For Study: Chest pain Procedure This was a 2D Doppler, Color Flow transthoracic echocardiogram. Exam performed portable in patient room. Left Ventricle Normal left ventricle. Normal wall thickness. Left ventricular systolic function is lower limits of normal. The LV ejection fraction is 50 %. possible Mild hypokinesis of the apical anterior septal wall. Right Ventricle Normal right ventricle. Normal systolic function. Atria The left atrium is mildly dilated. Normal right atrium. No intra atrial septal defect. Mitral Valve There is no stenosis. Mild-Moderate (1-2+) mitral valve insufficiency. Tricuspid Valve Normal tricuspid valve. Mild to moderate (1-2+) tricuspid valve insufficiency. Pulmonary artery systolic pressure is <35 mmHg. Aortic Valve There is no aortic stenosis. Trivial aortic valve insufficiency. Pulmonic Valve Trivial eccentric pulmonic valve insufficiency. Great Vessels The aortic root is mildly dilated at 3.8 cm. Pericardium/Pleural No pericardial effusion. MMode/2D Measurements & Calculations LVIDd: 5.1 cm IVSd: 1.1 cm Ao root diam: 3.8 cm LVIDs: 3.3 cm LVPWd: 0.97 cm RVDd: 4.1 cm FS: 35.0 % LAV(MOD-bp): 79.3 ml LVAd ap4: 28.9 cm2 LVAd ap2: 30.1 cm2 LAV(MOD-bp) Indexed: 38.3 ml/m2 LVLd ap4: 7.9 cm LVLd ap2: 7.7 cm LAV(MOD-sp2): 68.6 ml EDV(MOD-sp4): 88.7 ml EDV(MOD-sp2): 103.2 ml LAV(MOD-sp4): 76.8 ml EDV(sp4-el): 89.2 ml EDV(sp2-el): 99.6 ml LVAs ap4: 18.5 cm2 LVAs ap2: 18.8 cm2 LVLs ap4: 6.6 cm LVLs ap2: 7.0 cm ESV(MOD-sp4): 44.2 ml ESV(MOD-sp2): 43.1 ml ESV(sp4-el): 43.6 ml ESV(sp2-el): 42.9 ml EF(MOD-sp4): 50.1 % EF(MOD-sp2): 58.3 % EF(sp4-el): 51.2 % SV(MOD-sp4): 44.5 ml SV(MOD-sp2): 60.1 ml SV(sp4-el): 45.7 ml SI(MOD-sp4): 21.5 ml/m2 SI(MOD-sp2): 29.1 ml/m2 LA A4 area: 25.4 cm2 LA dimension(2D): 3.8 cm RA A4 area: 20.5 cm2 TAPSE: 2.3 cm Time Measurements MV dec time: 0.20 sec Doppler Measurements & Calculations MV E max arvind: 87.0 cm/sec Lat Peak E' Arvind: 9.1 cm/sec Med Peak E' Arvind: 6.9 cm/sec MV A max arvind: 63.8 cm/sec E/E' lat: 9.6 E/E' med: 12.5 MV E/A: 1.4 Ao V2 max: 183.2 cm/sec LV V1 max: 123.7 cm/sec MV dec slope: 440.8 cm/sec2 Ao max P.4 mmHg LV V1 max P.1 mmHg Ao V2 mean: 130.2 cm/sec LV V1 mean P.9 mmHg Ao mean P.4 mmHg LV V1 mean: 93.4 cm/sec Ao V2 VTI: 42.0 cm LV V1 VTI: 31.2 cm AV (velocity ratio): 0.74 PA V2 max: 108.4 cm/sec TR max arvind: 225.4 cm/sec TR max P.3 mmHg ECHO/Echo Complete Interpretation Summary The LV ejection fraction is 50 %. Left ventricular systolic function is lower limits of normal. possible Mild hypokinesis of the apical anterior septal wall The left atrium is mildly dilated The aortic root is mildly dilated at 3.8 cm Mild to moderate (1-2+) tricuspid valve insufficiency. Mild-Moderate (1-2+) mitral valve insufficiency. Ordering Physician: Loren De Souza Referring Physician: Khushboo Duldey Performed By: Savannah Noble RDCS
[2025-03-29 06:08] LABS: Anion Gap 9 (5-15); BUN 11 mg/dL (4-19); BUN/Creat Ratio 16.2 RATIO (10-20); Calcium,Total 8.6 mg/dL (7.6-11.0); Carbon Dioxide 21.5 mmol/L (21.0-32.0); Chloride 109 mmol/L (98-108); Creatinine, Serum 0.69 mg/dL (0.70-1.20); EST Glomerular Filtration Rate 93 (>60); Glucose 98 mg/dL (70-99); Potassium 3.8 mmol/L (3.3-5.1); Sodium Level 140 mmol/L (133-145)
[2025-03-29 08:09] VITALS: BP 133/70; PULSE 57; RESP 16; TEMP 37.2; O2SAT 95
[2025-03-29] MEDS: Losartan Potassium 50 MG Tablet PO (08:21)
[2025-03-29] MEDS: Calcium Carbonate 500 MG Tablet 1000 MG PO (08:21)
[2025-03-29] MEDS: Multivitamins,Ther W-Minerals Tablet 1 TABLET PO (08:21)
[2025-03-29] MEDS: Aspirin 81 MG TAB.CHEW PO (08:21)
[2025-03-29] MEDS: Atenolol 50 MG Tablet PO ×2 (08:21→21:40)
[2025-03-29] MEDS: Enoxaparin 40 MG/0.4 ML Syringe SC (08:21)
[2025-03-29 08:42] VITALS: O2SAT 98
--- NOTE | 2025-03-29 10:17 | PCM.CONS.C ---
Assessment & Plan Assessment/Plan (1) CAD (coronary artery disease): (2) Chest pain: (3) Abnormal stress test: PLAN: Plan 1. Chest pain in the setting of an abnormal stress test - reversible defect in the anterior myocardium.. The plan will be to proceed with a left heart catheterization given her symptoms. If she has further episodes of chest pain we will plan for possible left heart cath tomorrow. Echocardiogram has been ordered results are pending. Will Trend platelets they appear to be trending downwards, if they trend to less than 50,000 we will have to hold off left heart cath. 2. Hypertension 3. Hypothyroidism #4 thrombocytopenia HPI Consult Data Date of Consult: 03/29/25 HPI Narrative Reason for Consultation: chest pain HPI Narrative: GUMARO CARRASQUILLO, is a 70 F who presents to the ER with chest pain. She reports that she has had chest pains for couple months on and off about 5/10 in intensity substernal nonradiating for which she was ordered a stress test. Her stress test was done which showed ischemia in LAD territory, and the plan was an elective heart catheterization. However she woke up yesterday morning with chest pain reports it was again substernal 5/10 in intensity lasted a few minutes. And so she came to the ER. She has since had a few more brief episodes however no chest pains at this time. Echocardiogram is pending. She denies fever, chills, orthopnea, PND, loss of consciousness, diarrhea, constipation. Her high-sensitivity troponins have been within normal limits. [facility] Medical History (Updated 03/28/25 @ 23:[address] Davey Bosch, DO) Diverticulosis Chest pain Vaginal vault prolapse Cystocele, midline Wears glasses Bladder disease Anemia Restless legs History of diverticulosis History of IBS Heartburn Former smoker History of edema History of stress test Fibromyalgia Diverticulosis HTN (hypertension) Hypothyroidism Diarrhea Epigastric pain Home Medications ?Medication ?Instructions ?Recorded ?Last Taken ?Type atenolol 50 mg tablet 50 mg PO BID hypertension 01/04/18 03/28/25 07:00 History 50 mg calcium carbonate 600 mg PO DAILY supplement 01/04/18 Unknown History levothyroxine 75 mcg tablet 75 mcg PO DAILY hypothyroid 01/04/18 03/28/25 07:00 History 75 mcg conjugated estrogens 0.625 mg/gram 0.625 mg vaginal .Q3DAYS prevention 06/28/22 Unknown History vaginal cream (Premarin) triamcinolone acetonide 0.5 % 1 applic topical DAILY PRN PRN 06/28/22 Unknown History topical cream ECZEMA docusate sodium 50 mg capsule 100 mg PO PRN constipation 03/28/25 Unknown History (Colace Clear) losartan 50 mg tablet 50 mg PO DAILY hypertension 03/28/25 03/28/25 08:00 History 50 mg multivitamin with minerals-folic 1 tab PO DAILY supplement 03/28/25 03/28/25 07:00 History acid 0.4 mg tablet (One Daily 1 TAB Womens 50 Plus) ondansetron HCl 4 mg tablet 4 mg PO Q8H PRN PRN nausea and 03/28/25 Unknown History vomiting Allergy/AdvReac Type Severity Reaction Status Date / Time cefaclor (From [facility]) Allergy Hives Verified 03/28/25 14:25 latex Allergy Rash Verified 03/28/25 14:25 Family History Mother Cancer lung Diabetes Colon polyps Father Hypertension Brother Diabetes Colon polyps Surgical History History of bladder suspension procedure History of esophagogastroduodenoscopy (EGD) Status post hysteroscopic myomectomy Infected cyst of Bartholin's gland duct Status post lymph node biopsy S/P cataract extraction S/P hysterectomy S/P rotator cuff repair H/O section S/P colonoscopy S/P laparoscopic cholecystectomy Status post dilation and curettage Social History Smoking Status: Former smoker Physical Exam Const Constitutional Narrative: General?alert oriented HEENT- normal extraocular movements Neck supple no JVD Cardiovascular- normal S1-S2, no murmurs Pulmonary- clear to auscultation bilaterally Abdomen- soft to palpation, normal sounds Extremities- no edema Musculoskeletal- no tenderness no swelling Neurological -alert oriented Psych -normal affect Risk Stratification Risk Stratification Applicable: No Objective Data Vital Signs: Vital Signs Temp Pulse Resp BP Pulse Ox O2 Del Method 99.0 F 57 L 16 133/70 H 98 Room Air 03/29/25 08:09 03/29/25 08:09 03/29/25 08:09 03/29/25 08:09 03/29/25 08:42 03/29/25 08:42 Oxygen Delivery Method Room Air Weight: 222 lb 14.197 oz Body Mass Index (BMI) 37.0 Lab / Micro Data 03/29/25 05:15 03/29/25 05:15 Labs: Laboratory Results - last 24 hr 03/28/25 14:53: PT 13.3, INR 1.0, APTT 26.6, Sodium 140, Potassium 3.7, Chloride 107, Carbon Dioxide 22.0, Anion Gap 11, BUN 13, Creatinine 0.89, Estim Creat Clear Calc 68.48, Est GFR (MDRD) Non-Af 69, BUN/Creatinine Ratio 14.6, Glucose 122 H, Calcium 8.9, Troponin T High Sens 8, Triglycerides 54, Cholesterol 166, LDL Cholesterol, Calc 100, VLDL Cholesterol 11, HDL Cholesterol 56, Cholesterol/HDL Ratio 2.98 03/28/25 15:16: Hemoglobin A1c 5.8 H 03/28/25 16:52: Troponin T Hi Sens 2 Hr 9 03/28/25 19:05: Troponin T Hi Sens 4Hr 9 03/28/25 : WBC 6.7, RBC 3.86 L, Hgb 12.6, Hct 37.2, MCV 96.4, MCH 32.6 H, MCHC 33.9, RDW Std Deviation 44.6 H, RDW Coeff of Daryl 12.7, Plt Count 123 L, MPV 9.7, Immature Gran % (Auto) 0.600, Neut % (Auto) 72.2 H, Lymph % (Auto) 16.3 L, [place] % (Auto) 9.9, Eos % (Auto) 0.6, Baso % (Auto) 0.4, Absolute Neuts (auto) 4.8, Absolute Lymphs (auto) 1.09, Nucleated RBC % 0 03/29/25 05:15: WBC 6.4, RBC 3.55 L, Hgb 11.5 L, Hct 33.9 L, MCV 95.5, MCH 32.4 H, MCHC 33.9, RDW Std Deviation 44.3 H, RDW Coeff of Daryl 12.7, Plt Count 116 L, MPV 10.1, Immature Gran % (Auto) 0.500, Neut % (Auto) 69.8, Lymph % (Auto) 18.9 L, [place] % (Auto) 9.4, Eos % (Auto) 1.1, Baso % (Auto) 0.3, Absolute Neuts (auto) 4.4, Absolute Lymphs (auto) 1.20, Nucleated RBC % 0, Sodium 140, Potassium 3.8, Chloride 109 H, Carbon Dioxide 21.5, Anion Gap 9, BUN 11, Creatinine 0.69 L, Estim Creat Clear Calc 76.00, Est GFR (MDRD) Non-Af 93, BUN/Creatinine Ratio 16.2, Glucose 98, Calcium 8.6 Cardiology Labs/Tests 03/28/25 14:53: PT 13.3, INR 1.0, APTT 26.6, Sodium 140, Potassium 3.7, Chloride 107, Carbon Dioxide 22.0, Anion Gap 11, BUN 13, Creatinine 0.89, Est GFR (MDRD) Non-Af 69, BUN/Creatinine Ratio 14.6, Glucose 122 H, Calcium 8.9, Triglycerides 54, Cholesterol 166, VLDL Cholesterol 11, HDL Cholesterol 56, Cholesterol/HDL Ratio 2.98 03/28/25 15:16: Hemoglobin A1c 5.8 H 03/28/25 : WBC 6.7, RBC 3.86 L, Hgb 12.6, Hct 37.2, MCV 96.4, MCH 32.6 H, MCHC 33.9, Plt Count 123 L, MPV 9.7, Immature Gran % (Auto) 0.600, Neut % (Auto) 72.2 H, Lymph % (Auto) 16.3 L, [place] % (Auto) 9.9, Eos % (Auto) 0.6, Baso % (Auto) 0.4, Absolute Neuts (auto) 4.8, Nucleated RBC % 0 03/29/25 05:15: WBC 6.4, RBC 3.55 L, Hgb 11.5 L, Hct 33.9 L, MCV 95.5, MCH 32.4 H, MCHC 33.9, Plt Count 116 L, MPV 10.1, Immature Gran % (Auto) 0.500, Neut % (Auto) 69.8, Lymph % (Auto) 18.9 L, [place] % (Auto) 9.4, Eos % (Auto) 1.1, Baso % (Auto) 0.3, Absolute Neuts (auto) 4.4, Nucleated RBC % 0, Sodium 140, Potassium 3.8, Chloride 109 H, Carbon Dioxide 21.5, Anion Gap 9, BUN 11, Creatinine 0.69 L, Est GFR (MDRD) Non-Af 93, BUN/Creatinine Ratio 16.2, Glucose 98, Calcium 8.6 Rhythm: EKG: ECHO: Stress Test: Cardiac Cath: PCI: CT Surgery: Holter monitor: EPS: PPM: CXR: Chest CT Scan: Radiography Diagnostic Testing: Radiology Impression Chest X-Ray 03/28/25 15:10 IMPRESSION: Cardiomegaly with mild congestion. Reading Location: [facility]
--- NOTE | 2025-03-29 13:44 | PN_ITS ---
Subjective Subjective Patient seen and examined. She had no complaints today. She did have some mild chest pain overnight. Review of symptoms otherwise negative. Her , granddaughter and granddaughter significant other by bedside. Review of systems otherwise negative. Objective Data Objective Data Vital Signs: Vital Signs Temp Pulse Resp BP Pulse Ox O2 Del Method 99.0 F 57 L 16 133/70 H 98 Room Air 03/29/25 08:09 03/29/25 08:09 03/29/25 08:09 03/29/25 08:09 03/29/25 08:42 03/29/25 08:42 Oxygen Delivery Method Room Air Weight: 222 lb 14.197 oz Body Mass Index (BMI) 37.0 Lab / Micro Data 03/29/25 05:15 03/29/25 05:15 Labs: Laboratory Results - last 24 hr 03/28/25 14:53: PT 13.3, INR 1.0, APTT 26.6, Sodium 140, Potassium 3.7, Chloride 107, Carbon Dioxide 22.0, Anion Gap 11, BUN 13, Creatinine 0.89, Estim Creat Clear Calc 68.48, Est GFR (MDRD) Non-Af 69, BUN/Creatinine Ratio 14.6, Glucose 122 H, Calcium 8.9, Troponin T High Sens 8, Triglycerides 54, Cholesterol 166, LDL Cholesterol, Calc 100, VLDL Cholesterol 11, HDL Cholesterol 56, Cholesterol/HDL Ratio 2.98 03/28/25 15:16: Hemoglobin A1c 5.8 H 03/28/25 16:52: Troponin T Hi Sens 2 Hr 9 03/28/25 19:05: Troponin T Hi Sens 4Hr 9 03/28/25 : WBC 6.7, RBC 3.86 L, Hgb 12.6, Hct 37.2, MCV 96.4, MCH 32.6 H, MCHC 33.9, RDW Std Deviation 44.6 H, RDW Coeff of Daryl 12.7, Plt Count 123 L, MPV 9.7, Immature Gran % (Auto) 0.600, Neut % (Auto) 72.2 H, Lymph % (Auto) 16.3 L, [place] % (Auto) 9.9, Eos % (Auto) 0.6, Baso % (Auto) 0.4, Absolute Neuts (auto) 4.8, Absolute Lymphs (auto) 1.09, Nucleated RBC % 0 03/29/25 05:15: WBC 6.4, RBC 3.55 L, Hgb 11.5 L, Hct 33.9 L, MCV 95.5, MCH 32.4 H, MCHC 33.9, RDW Std Deviation 44.3 H, RDW Coeff of Daryl 12.7, Plt Count 116 L, MPV 10.1, Immature Gran % (Auto) 0.500, Neut % (Auto) 69.8, Lymph % (Auto) 18.9 L, [place] % (Auto) 9.4, Eos % (Auto) 1.1, Baso % (Auto) 0.3, Absolute Neuts (auto) 4.4, Absolute Lymphs (auto) 1.20, Nucleated RBC % 0, Sodium 140, Potassium 3.8, Chloride 109 H, Carbon Dioxide 21.5, Anion Gap 9, BUN 11, Creatinine 0.69 L, Estim Creat Clear Calc 76.00, Est GFR (MDRD) Non-Af 93, BUN/Creatinine Ratio 16.2, Glucose 98, Calcium 8.6 Radiography Diagnostic Testing: Radiology Impression Chest X-Ray 03/28/25 15:10 IMPRESSION: Cardiomegaly with mild congestion. Reading Location: [facility] Echocardiogram 03/29/25 05:55 Interpretation Summary The LV ejection fraction is 50 %. Left ventricular systolic function is lower limits of normal. possible Mild hypokinesis of the apical anterior septal wall The left atrium is mildly dilated The aortic root is mildly dilated at 3.8 cm Mild to moderate (1-2+) tricuspid valve insufficiency. Mild-Moderate (1-2+) mitral valve insufficiency. Ordering Physician: Loren De Souza Referring Physician: Khushboo Dudley Performed By: Savannah Noble, RDJORDON Physical Exam Const alert, oriented x3 and no apparent distress General Appearance: cooperative HEENT normocephalic, head/scalp atraumatic, hearing grossly normal bilaterally and moist oral mucous membranes Eyes EOMs intact bilaterally and conjunctivae normal Neck supple and no JVD Lymph Lymphatic: no lymphedema noted Resp normal respiratory effort, normal air movement, no use of accessory muscles and clear to auscultation bilaterally Cardio regular rate, regular rhythm, S1 normal heart sound, S2 normal heart sound and no murmurs GI normal to inspection, nondistended, normoactive bowel sounds, soft to palpation and non-tender Extremity normal to inspection, full ROM, normal capillary refill and no clubbing, cyanosis or edema General Extremity: no tenderness to palpation of joints or extremities Skin General Skin Exam: no breakdown Neuro oriented x3, moves all extremities and no focal motor deficits Sensorium / Orientation: awake and alert Motor Exam: strength 5/5 throughout Psych thought process normal, cooperative and affect normal Appearance: appropriate Assessment & Plan Assessment/Plan (1) CAD (coronary artery disease): (2) Chest pain: PLAN: Plan #Chest pain in the setting of abnormal stress test * Patient has been having exertional chest pain for about a year which gradually worsened recently so she had an outpatient stress test yesterday which was abnormal. It showed mild perfusion reduced in the anterior wall post pharmacological stress suggestive of anterior wall ischemia with EF of 70%. * Troponins x 3 were not elevated. EKG showed new right bundle branch block * On aspirin and high intensity statin. On metoprolol. * Cardiology on board. For cardiac cath on Monday. * 2D echo showed normal left ventricular wall thickness and EF of 50% with possible mild hypokinesis of the apical anterior septal * #Hypertension: On losartan #Hypothyroidism: On Synthroid Class II obesity: BMI is 37.1. Complicates acute care, expected recovery and prognosis. DVT prophylaxis: lovenox Charges/Coding Visit Charges Inpatient E&M: 58066 Subs Hosp L2
--- NOTE | 2025-03-29 14:10 | CASEMGMT ---
RN?CM?CHILDREN'S CHOIR DIRECTOR?CM?to room to meet with patient for initial transition planning/care coordination?assessment.?RN?CM?introduced self and role at [facility].? Pt voices understanding and consents to?assessment?at this time.? Pt sitting on edge of bed in no distress at this time.? Daughter in room and pt agreeable to being present during assessment. Pt is A/O at this time and answers all questions appropriately.?? Care providers, pharmacy, and demographics verified/updated at this time. PCP: Dr Dudley Specialists: none [facility] Insurance: [facility], MMO Prescription Benefit:?Yes LNOK: , [place]. Daughter. Living Arrangements: Lives w/ in raised[place]ranch, 3 steps to enter. 13 steps to enter. States does okay w/stairs. Independent. Transportation:?Pt states drives self and states no transportation concerns at this time.? also drives. DME: ? Denies using any DME and denies needs.? HHC/SNF: No hx. No needs identified. Pt wishes to return home and states has no concerns with going home at time of discharge.?CM?to follow for any discharge planning/needs.? Pt voices no concerns/needs at this time.? Advised pt to ask for?CM?if any questions/concerns/needs arise.? Voices understanding. PLAN:??Home Heart cath scheduled for Monday. Follow for any needs. Sharan BSN?RN?CM
[2025-03-29 15:41] VITALS: BP 134/66; PULSE 59; RESP 16; TEMP 36.7; O2SAT 96
[2025-03-29 21:36] VITALS: BP 155/76; PULSE 60; RESP 18; TEMP 36.7; O2SAT 97
[2025-03-29] MEDS: Atorvastatin Calcium 40 MG Tablet PO (21:39)
[2025-03-29] MEDS: Acetaminophen 325 MG Tablet 650 MG PO (21:43)
[2025-03-30] VITALS (8 sets, daily range): BP systolic 124–160; BP diastolic 66–75; PULSE 57–71; RESP 16–18; TEMP 36.1–36.7; O2SAT 94–97
--- NOTE | 2025-03-30 05:41 | EKG12_ITS ---
Test Reason : HEART CATH Blood Pressure : */* mmHG Vent. Rate : 56 BPM Atrial Rate : 56 BPM P-R Int : 188 ms QRS Dur : 142 ms QT Int : 446 ms P-R-T Axes : 53 -41 92 degrees QTcB Int : 430 ms Sinus bradycardia Left axis deviation Left bundle branch block Abnormal ECG When compared with ECG of 30-Mar-2025 05:55, MANUAL COMPARISON REQUIRED DATA IS UNCONFIRMED Confirmed by CHRISTA GARCIA, AIRAM ([id number]), editorial specialist ANTHONY HADLEY ([id number]) on 04/01/2025 8:25:56 AM Referred By: GURU Confirmed By: AIRAM GOODWIN MD
[2025-03-30] MEDS: Levothyroxine 75 MCG Tablet PO (05:42)
[2025-03-30 06:18] LABS: Absolute Lymphocyte Count 1.53 X10^3/uL (0.83-4.51); Absolute Neutrophil Count 3.6 X10^3/uL (2.0-7.7); Basophil# 0.02 X10^3/uL; Basophil% 0.3 % (0-1); Eosinophil# 0.12 X10^3/uL; Hematocrit 37.3 % (37-47); Hemoglobin 12.8 g/dL (12.0-15.0); Lymphocyte # 1.53 X10^3/ul (0.83-4.51); Lymphocyte % 25.9 % (19-41); Mean Corp Hgb Conc 34.3 g/dL (32-36); Mean Corpuscular Hgb 32.7 pg (27.0-32.0); Mean Corpuscular Volume 95.4 fL (81-99); Mean Platelet Vol. 10.1 fl (6.2-12.0); Monocyte# 0.61 X10^3/uL; Monocyte% 10.3 % (0-10); NRBC Flagged by Analyzer 0 % (0-5); Platelet Count 125 K/mm3 (150-450); RBC Distribution Width CV 12.7 % (11.6-14.6); RBC Distribution Width SD 43.7 fl (35.1-43.9); Red Blood Count 3.91 M/mm3 (4.2-5.4); White Blood Count 5.9 K/mm3 (4.4-11.0)
--- NOTE | 2025-03-30 06:21 | PCM.HOSP.N ---
Hospitalist Note Called as patient was having mild chest pain. EKG repeat was stable. Notes reviewed and it does appear patient had abnormal stress test with intent for cardiac catheterization on Monday. Sublingual nitro has not been helpful but patient did report that Nitropaste was helpful in the emergency department so we will start 1 inch of Nitropaste.
[2025-03-30 06:43] LABS: Anion Gap 9 (5-15); BUN 11 mg/dL (4-19); Calcium,Total 8.8 mg/dL (7.6-11.0); Carbon Dioxide 22.8 mmol/L (21.0-32.0); Chloride 110 mmol/L (98-108); Creatinine, Serum 0.74 mg/dL (0.70-1.20); EST Glomerular Filtration Rate 87 (>60); Glucose 102 mg/dL (70-99); Potassium 3.9 mmol/L (3.3-5.1); Sodium Level 142 mmol/L (133-145)
[2025-03-30] MEDS: Nitroglycerin Oint 1 INCH PACKET TD ×3 (07:00→21:26)
[2025-03-30] MEDS: Acetaminophen 325 MG Tablet 650 MG PO (07:00)
[2025-03-30] MEDS: Losartan Potassium 50 MG Tablet PO (10:39)
[2025-03-30] MEDS: Calcium Carbonate 500 MG Tablet 1000 MG PO (10:39)
[2025-03-30] MEDS: Aspirin 81 MG TAB.CHEW PO (10:39)
[2025-03-30] MEDS: Atenolol 50 MG Tablet PO ×2 (10:39→21:25)
[2025-03-30] MEDS: Multivitamins,Ther W-Minerals Tablet 1 TABLET PO (10:39)
[2025-03-30] MEDS: Enoxaparin 40 MG/0.4 ML Syringe SC (10:39)
--- NOTE | 2025-03-30 10:56 | PN.CARD_ITS ---
Subjective Subjective Had an episode of Chest pain and had a nitro patch place and it is resolved Objective Data Vital Signs: Vital Signs Temp Pulse Resp BP Pulse Ox O2 Del Method 98.1 F 71 16 145/74 H 97 Room Air 03/30/25 10:32 03/30/25 10:32 03/30/25 10:32 03/30/25 10:32 03/30/25 10:32 03/30/25 10:32 Oxygen Delivery Method Room Air Weight: 222 lb 14.197 oz Body Mass Index (BMI) 37.0 Intake & Output: Intake and Output for Last 24 Hours 03/28/25 03/29/25 03/30/25 23:59 23:59 23:59 Intake Total 120 / 120 120 / 120 Balance 120 / 120 120 / 120 Lab / Micro Data 03/30/25 05:31 03/30/25 05:31 Labs: Laboratory Results - last 24 hr 03/30/25 05:31: WBC 5.9, RBC 3.91 L, Hgb 12.8, Hct 37.3, MCV 95.4, MCH 32.7 H, MCHC 34.3, RDW Std Deviation 43.7, RDW Coeff of Daryl 12.7, Plt Count 125 L, MPV 10.1, Immature Gran % (Auto) 0.500, Neut % (Auto) 61.0, Lymph % (Auto) 25.9, [place] % (Auto) 10.3 H, Eos % (Auto) 2.0, Baso % (Auto) 0.3, Absolute Neuts (auto) 3.6, Absolute Lymphs (auto) 1.53, Nucleated RBC % 0, Sodium 142, Potassium 3.9, Chloride 110 H, Carbon Dioxide 22.8, Anion Gap 9, BUN 11, Creatinine 0.74, Estim Creat Clear Calc 76.00, Est GFR (MDRD) Non-Af 87, BUN/Creatinine Ratio 15.0, G lucose 102 H, Calcium 8.8 Cardiology Labs/Tests 03/30/25 05:31: WBC 5.9, RBC 3.91 L, Hgb 12.8, Hct 37.3, MCV 95.4, MCH 32.7 H, MCHC 34.3, Plt Count 125 L, MPV 10.1, Immature Gran % (Auto) 0.500, Neut % (Auto) 61.0, Lymph % (Auto) 25.9, [place] % (Auto) 10.3 H, Eos % (Auto) 2.0, Baso % (Auto) 0.3, Absolute Neuts (auto) 3.6, Nucleated RBC % 0, Sodium 142, Potassium 3.9, Chloride 110 H, Carbon Dioxide 22.8, Anion Gap 9, BUN 11, Creatinine 0.74, Est GFR (MDRD) Non-Af 87, BUN/Creatinine Ratio 15.0, Glucose 102 H, Calcium 8.8 Rhythm: EKG: ECHO: Stress Test: Cardiac Cath: PCI: CT Surgery: Holter monitor: EPS: PPM: CXR: Chest CT Scan: Radiography Diagnostic Testing: Radiology Impression Echocardiogram 03/29/25 05:55 Interpretation Summary The LV ejection fraction is 50 %. Left ventricular systolic function is lower limits of normal. possible Mild hypokinesis of the apical anterior septal wall The left atrium is mildly dilated The aortic root is mildly dilated at 3.8 cm Mild to moderate (1-2+) tricuspid valve insufficiency. Mild-Moderate (1-2+) mitral valve insufficiency. Ordering Physician: Loren De Souza Referring Physician: Khushboo Dudley Performed By: Savannah Noble RDCS Physical Exam Const Constitutional Narrative: General?alert oriented, pleasant HEENT- normal extraocular movements, atraumatic Neck supple no JVD Cardiovascular- normal S1-S2, no murmurs Pulmonary- clear to auscultation bilaterally Abdomen- soft to palpation, normal sounds Extremities- no edema, not tender Musculoskeletal- no tenderness no swelling Neurological -alert oriented x3 Psych -normal affect Assessment & Plan Assessment/Plan (1) CAD (coronary artery disease): (2) Chest pain: (3) Abnormal stress test: PLAN: Plan 1. Chest pain in the setting of an abnormal stress test/Unstable .angina.- reversible defect in the anterior myocardium.. The plan will be to proceed with a left heart catheterization given her symptoms. Had another episode and was placed in a Nitropatch and this is now resolved. Unfortunately she just ate breakfast. Platelets are stable at about 125,000. Plan to proceed with left heart cath in the a.m.keep npo after mn 2. Hypertension:cont meds 3. Hypothyroidism: per primary team. Chief #4 thrombocytopenia: stable Charges/Coding Visit Charges Inpatient E&M: 68857 Subs Hosp L3
--- NOTE | 2025-03-30 12:03 | PN_ITS ---
Subjective Subjective Patient seen and examined. She did have a bit of chest pain overnight which improved after nitro paste. Objective Data Objective Data Vital Signs: Vital Signs Temp Pulse Resp BP Pulse Ox O2 Del Method 98.1 F 71 16 145/74 H 97 Room Air 03/30/25 10:32 03/30/25 10:32 03/30/25 10:32 03/30/25 10:32 03/30/25 10:32 03/30/25 10:32 Oxygen Delivery Method Room Air Weight: 222 lb 14.197 oz Body Mass Index (BMI) 37.0 Intake & Output: Intake and Output for Last 24 Hours 03/28/25 03/29/25 03/30/25 23:59 23:59 23:59 Intake Total 120 / 120 120 / 120 Balance 120 / 120 120 / 120 Lab / Micro Data 03/30/25 05:31 03/30/25 05:31 Labs: Laboratory Results - last 24 hr 03/30/25 05:31: WBC 5.9, RBC 3.91 L, Hgb 12.8, Hct 37.3, MCV 95.4, MCH 32.7 H, MCHC 34.3, RDW Std Deviation 43.7, RDW Coeff of Daryl 12.7, Plt Count 125 L, MPV 10.1, Immature Gran % (Auto) 0.500, Neut % (Auto) 61.0, Lymph % (Auto) 25.9, M vaughn % (Auto) 10.3 H, Eos % (Auto) 2.0, Baso % (Auto) 0.3, Absolute Neuts (auto) 3.6, Absolute Lymphs (auto) 1.53, Nucleated RBC % 0, Sodium 142, Potassium 3.9, Chloride 110 H, Carbon Dioxide 22.8, Anion Gap 9, BUN 11, Creatinine 0.74, Estim Creat Clear Calc 76.00, Est GFR (MDRD) Non-Af 87, BUN/Creatinine Ratio 15.0, G lucose 102 H, Calcium 8.8 Radiography Diagnostic Testing: Radiology Impression Echocardiogram 03/29/25 05:55 Interpretation Summary The LV ejection fraction is 50 %. Left ventricular systolic function is lower limits of normal. possible Mild hypokinesis of the apical anterior septal wall The left atrium is mildly dilated The aortic root is mildly dilated at 3.8 cm Mild to moderate (1-2+) tricuspid valve insufficiency. Mild-Moderate (1-2+) mitral valve insufficiency. Ordering Physician: Loren De Souza Referring Physician: Khushboo Dudley Performed By: Savannah Noble RDCS Physical Exam Const alert, oriented x3 and no apparent distress General Appearance: cooperative HEENT normocephalic, head/scalp atraumatic, hearing grossly normal bilaterally, moist oral mucous membranes and oropharynx normal Eyes EOMs intact bilaterally and conjunctivae normal Neck supple and no JVD Lymph Lymphatic: no lymphedema noted Resp normal respiratory effort, normal air movement, no use of accessory muscles and clear to auscultation bilaterally Cardio regular rate, regular rhythm, S1 normal heart sound, S2 normal heart sound and no murmurs GI normal to inspection, nondistended, normoactive bowel sounds, soft to palpation and non-tender Extremity normal to inspection, full ROM, normal capillary refill and no clubbing, cyanosis or edema General Extremity: no tenderness to palpation of joints or extremities Skin General Skin Exam: no breakdown Neuro oriented x3, moves all extremities and no focal motor deficits Sensorium / Orientation: awake and alert Motor Exam: strength 5/5 throughout Psych thought process normal, cooperative and affect normal Appearance: appropriate Assessment & Plan Assessment/Plan (1) CAD (coronary artery disease): (2) Chest pain: PLAN: Plan #Chest pain in the setting of abnormal stress test * Patient has been having exertional chest pain for about a year which gradually worsened recently so she had an outpatient stress test y which was abnormal. It showed mild perfusion reduced in the anterior wall post pharmacological stress suggestive of anterior wall ischemia with EF of 70%. * Troponins x 3 were not elevated. EKG showed new right bundle branch block * On aspirin and high intensity statin. On metoprolol. * Cardiology on board. For cardiac cath on Monday. * 2D echo showed normal left ventricular wall thickness and EF of 50% with possible mild hypokinesis of the apical anterior septal wall. * #Hypertension: On losartan #Hypothyroidism: On Synthroid Class II obesity: BMI is 37.1. Complicates acute care, expected recovery and prognosis. DVT prophylaxis: lovenox Charges/Coding Visit Charges Inpatient E&M: 19101 Subs Hosp L2
[2025-03-30] MEDS: Ondansetron ODT 4 MG Tablet PO (15:17)
[2025-03-30] MEDS: Atorvastatin Calcium 40 MG Tablet PO (21:25)
[2025-03-31] VITALS (13 sets, daily range): BP systolic 116–166; BP diastolic 58–78; PULSE 54–68; RESP 15–18; TEMP 35.9–36.8; O2SAT 94–98
[2025-03-31 04:43] LABS: Basophil# 0.03 X10^3/uL; Basophil% 0.5 % (0-1); Eosinophil# 0.12 X10^3/uL; Eosinophils% 1.9 % (0-5); Hematocrit 35.9 % (37-47); Hemoglobin 12.1 g/dL (12.0-15.0); Lymphocyte % 22.7 % (19-41); Mean Corp Hgb Conc 33.7 g/dL (32-36); Mean Corpuscular Hgb 32.4 pg (27.0-32.0); Monocyte# 0.63 X10^3/uL; Monocyte% 10.2 % (0-10); NRBC Flagged by Analyzer 0 % (0-5); Neutrophil # 3.98 X10^3/uL (2.7-7.7); Neutrophil % 64.4 % (47-70); Platelet Count 120 K/mm3 (150-450); RBC Distribution Width CV 12.6 % (11.6-14.6); RBC Distribution Width SD 43.6 fl (35.1-43.9); Red Blood Count 3.74 M/mm3 (4.2-5.4); White Blood Count 6.2 K/mm3 (4.4-11.0)
--- NOTE | 2025-03-31 05:55 | EKG12_ITS ---
Test Reason : CP Blood Pressure : */* mmHG Vent. Rate : 64 BPM Atrial Rate : 64 BPM P-R Int : 188 ms QRS Dur : 142 ms QT Int : 450 ms P-R-T Axes : 66 -43 81 degrees QTcB Int : 464 ms Normal sinus rhythm Left axis deviation Left bundle branch block Abnormal ECG When compared with ECG of 28-Mar-2025 21:03, MANUAL COMPARISON REQUIRED DATA IS UNCONFIRMED Confirmed by CHRISTA GARCIA, AIRAM ([id number]), web editor ANTHONY HADLEY ([id number]) on 04/01/2025 8:27:43 AM Referred By: Confirmed By: AIRAM GOODWIN MD
[2025-03-31 05:59] LABS: Anion Gap 10 (5-15); BUN 12 mg/dL (4-19); BUN/Creat Ratio 15.8 RATIO (10-20); Calcium,Total 8.7 mg/dL (7.6-11.0); Carbon Dioxide 21.9 mmol/L (21.0-32.0); Chloride 108 mmol/L (98-108); Creatinine, Serum 0.75 mg/dL (0.70-1.20); EST Glomerular Filtration Rate 85 (>60); Glucose 98 mg/dL (70-99); Potassium 3.8 mmol/L (3.3-5.1); Sodium Level 141 mmol/L (133-145)
[2025-03-31] MEDS: Nitroglycerin Oint 1 INCH PACKET TD (06:18)
[2025-03-31] MEDS: Levothyroxine 75 MCG Tablet PO (06:20)
[2025-03-31] MEDS: Atenolol 50 MG Tablet PO (06:20)
[2025-03-31] MEDS: Aspirin 81 MG TAB.CHEW PO (06:21)
[2025-03-31] MEDS: 0.9% Saline Lock 10 ML Syringe IV (06:27)
--- NOTE | 2025-03-31 08:29 | PCM.PN.CARD ---
Subjective Subjective Patient seen and evaluated. Underwent cardiac catheterization today. Objective Data Vital Signs: Vital Signs Temp Pulse Resp BP Pulse Ox O2 Del Method 98.3 F 56 L 16 151/78 H 97 Room Air 03/31/25 07:35 03/31/25 07:35 03/31/25 07:35 03/31/25 07:35 03/31/25 07:35 03/31/25 07:35 Oxygen Delivery Method Room Air Weight: 222 lb 14.197 oz Body Mass Index (BMI) 37.0 Intake & Output: Intake and Output for Last 24 Hours 03/29/25 03/30/25 03/31/25 23:59 23:59 23:59 Intake Total 120 / 120 120 / 120 Balance 120 / 120 120 / 120 Lab / Micro Data 03/31/25 04:25 03/31/25 04:25 Labs: Laboratory Results - last 24 hr 03/31/25 04:25: WBC 6.2, RBC 3.74 L, Hgb 12.1, Hct 35.9 L, MCV 96.0, MCH 32.4 H, MCHC 33.7, RDW Std Deviation 43.6, RDW Coeff of Daryl 12.6, Plt Count 120 L, MPV 10.0, Immature Gran % (Auto) 0.300, Neut % (Auto) 64.4, Lymph % (Auto) 22.7, Carroll % (Auto) 10.2 H, Eos % (Auto) 1.9, Baso % (Auto) 0.5, Absolute Neuts (auto) 4.0, Absolute Lymphs (auto) 1.40, Nucleated RBC % 0, Sodium 141, Potassium 3.8, Chloride 108, Carbon Dioxide 21.9, Anion Gap 10, BUN 12, Creatinine 0.75, Estim Creat Clear Calc 76.00, Est GFR (MDRD) Non-Af 85, BUN/Creatinine Ratio 15.8, Glucose 98, Calcium 8.7 Cardiology Labs/Tests 03/31/25 04:25: WBC 6.2, RBC 3.74 L, Hgb 12.1, Hct 35.9 L, MCV 96.0, MCH 32.4 H, MCHC 33.7, Plt Count 120 L, MPV 10.0, Immature Gran % (Auto) 0.300, Neut % (Auto) 64.4, Lymph % (Auto) 22.7, Carroll % (Auto) 10.2 H, Eos % (Auto) 1.9, Baso % (Auto) 0.5, Absolute Neuts (auto) 4.0, Nucleated RBC % 0, Sodium 141, Potassium 3.8, Chloride 108, Carbon Dioxide 21.9, Anion Gap 10, BUN 12, Creatinine 0.75, Est GFR (MDRD) Non-Af 85, BUN/Creatinine Ratio 15.8, Glucose 98, Calcium 8.7 Rhythm: EKG: ECHO: Stress Test: Cardiac Cath: PCI: CT Surgery: Holter monitor: EPS: PPM: CXR: Chest CT Scan: Physical Exam Const alert, oriented x3 and no apparent distress General Appearance: cooperative HEENT normocephalic, head/scalp atraumatic, hearing grossly normal bilaterally, moist oral mucous membranes and oropharynx normal Eyes EOMs intact bilaterally and conjunctivae normal Neck supple and no JVD Lymph Lymphatic: no lymphedema noted Resp normal respiratory effort, normal air movement, no use of accessory muscles and clear to auscultation bilaterally Cardio regular rate, regular rhythm, S1 normal heart sound, S2 normal heart sound and no murmurs GI normal to inspection, nondistended, normoactive bowel sounds, soft to palpation and non-tender Extremity normal to inspection, full ROM, normal capillary refill and no clubbing, cyanosis or edema General Extremity: no tenderness to palpation of joints or extremities Skin General Skin Exam: no breakdown Neuro oriented x3, moves all extremities and no focal motor deficits Sensorium / Orientation: awake and alert Motor Exam: strength 5/5 throughout Psych thought process normal, cooperative and affect normal Appearance: appropriate Assessment & Plan Assessment/Plan (1) Abnormal stress test: PLAN: Patient had a history of an abnormal stress test as well as chest discomfort. She underwent cardiac catheterization today which demonstrated no obstructive coronary disease and her ejection fraction was preserved. The above was likely a false positive stress test from the left bundle branch block. (2) History of hypertension: PLAN: Her blood pressure is uncontrolled we will make appropriate adjustments to her blood pressure and depending on the findings further recommendations made she will be followed up as an outpatient. Thank you for allowing me to participate in the care of your patient. Please don't hesitate to call if any issues arise.
--- NOTE | 2025-03-31 09:45 | EKG12_ITS ---
Test Reason : POST OP Blood Pressure : */* mmHG Vent. Rate : 57 BPM Atrial Rate : 57 BPM P-R Int : 196 ms QRS Dur : 138 ms QT Int : 462 ms P-R-T Axes : 71 -35 82 degrees QTcB Int : 449 ms Sinus bradycardia Left axis deviation Left bundle branch block Abnormal ECG When compared with ECG of 31-Mar-2025 05:20, MANUAL COMPARISON REQUIRED DATA IS UNCONFIRMED Confirmed by CHRISTA GARCIA, AIRAM ([id number]), production editor IRVING HOLLY ([id number]) on 04/02/2025 7:30:16 AM Referred By: ASTER Confirmed By: AIRAM GOODWIN MD
[2025-03-31] MEDS: Multivitamins,Ther W-Minerals Tablet 1 TABLET PO (10:13)
[2025-03-31] MEDS: Calcium Carbonate 500 MG Tablet 1000 MG PO (10:13)
[2025-03-31] MEDS: Losartan Potassium 100 MG Tablet PO (10:14)
--- NOTE | 2025-03-31 10:34 | DCINST_ITS ---
Discharge Instructions Diet Discharge Diet: Low fat / Low cholesterol and 2000 mg Sodium Diet DC O2, CPAP, BIPAP needs Home O2 Discharge instructions: No Dressing / Incision Discharge Activity: Return to Normal Activity Weight Bearing Status: Weight bearing as tolerated Dressing / Incision Call your doctor if you observe: Fever of 101 or Higher, Coldness, Increased Pain, Numbness or Tingling, Change in Color, Inability to urinate, Inability to have a bowel movement, Shortness of breath, Dizziness, Fainting spells, Swelling in the ankles, Chest pain, Prolonged hiccupping, Increased palpitations (irregular heartbeat) and Calf discomfort Follow Up Care When: IN 2 WEEKS Test Results: Test results from this visit will be discussed in further detail at your follow- up appointment, if applicable. Discharge Plan Admission Admit Date/Time: 03/28/25 17:41 Primary Reason for Your Visit: Atypical chest pain. Cardiac cath normal. Attending Provider: Eleazar Gonzalez Primary Care Provider: Khushboo Dudley Consulting Providers: Stoney Veronica; Loren De Souza Discharge Orders/Prescriptions Prescriptions: New atorvastatin 40 mg Tablet 40 mg PO QHS 30 Days Qty: 30 3RF nitroglycerin 0.4 mg Tablet, Sublingual 0.4 mg sublingual Q5M PRN (Reason: Cardiac/Chest Pain) 30 Days Qty: 30 0RF aspirin 81 mg Tablet,Chewable 81 mg PO BREAKFAST 30 Days Qty: 30 3RF losartan 100 mg Tablet 100 mg PO DAILY 30 Days Qty: 30 2RF atenolol 50 mg Tablet 25 mg PO DAILY 30 Days Qty: 30 0RF Rx Instructions: Hold for SBP less than 130 mmHg Continued triamcinolone acetonide 0.5 % cream 1 applic topical DAILY PRN PRN (Reason: ECZEMA) Premarin 0.625 mg/gram cream 0.625 mg vaginal .Q3DAYS levothyroxine 75 MCG tablet 75 mcg PO DAILY calcium carbonate 600 MG tablet 600 mg PO DAILY ondansetron HCl 4 mg tablet 4 mg PO Q8H PRN PRN (Reason: nausea and vomiting) multivit with min-folic acid [One Daily Womens 50 Plus] 0.4 mg tablet 1 tab PO DAILY Colace Clear 50 mg capsule 100 mg PO PRN Discontinued atenolol 50 MG tablet 50 mg PO BID losartan 50 mg tablet 50 mg PO DAILY Referrals / Follow Up: Stoney Veronica MD [Med Staff - Active Staff] - Within 1 Month Khushboo Dudley MD [Primary Care Provider] - Within 2 Weeks Disposition Disposition (needs filled in before D/C Order can be placed): Home, Self Care
--- NOTE | 2025-03-31 10:39 | DS.PCM_ITS ---
Providers Date of Admission: 03/28/25 Date of Discharge: 03/31/25 Primary Care Physician: Dr. Khushboo Dudley MD Consultations 03/28/25 18:33 Consult: Cardiology Routine Consulting Provider: Stoney Veronica Reason for Consult: abnormal stress test, chest pain EMERGENT Consult: No MD Notified: Yes Date Notified: 03/28/25 Time Notified: 17:44 Method of Notification: Text Reason For Visit: CHEST PAIN Diagnosis Discharge Diagnosis (1) Abnormal stress test: Status: Acute Code(s): R94.39 - Abnormal result of other cardiovascular function study (2) History of hypertension: Status: Acute Code(s): Z86.79 - Personal history of other diseases of the circulatory system Plan This is a 69-year-old female being admitted for atypical chest pain. She had abnormal stress test reported on the stress test. #Chest pain in the setting of abnormal stress test * Patient has been having exertional chest pain for about a year which gradually worsened recently so she had an outpatient stress test y which was abnormal. It showed mild perfusion reduced in the anterior wall post pharmacological stress suggestive of anterior wall ischemia with EF of 70%. * Troponins x 3 were not elevated. EKG showed sinus bradycardia 57 beats per 1, LAD, LBBB * On aspirin and high intensity statin. On metoprolol. * Patient was evaluated by chips screen tender. * 2D echo showed normal left ventricular wall thickness and EF of 50% with possible mild hypokinesis of the apical anterior septal wall. 03/31: Patient had cardiac cath today which shows no obstructive coronary artery disease and her EF is preserved. Stress test probably false positive stress test from the left bundle branch block. Patient also has bradycardia with heart rate 56 per night and she was on metoprolol 50 mg twice daily. Dose decreased to 25 mg advised to hold for heart less than 50 or systolic blood pressure less than 100 mmHg. Patient has dyslipidemia and prescription given for atorvastatin 40 mg daily and baby aspirin. * #Hypertension: On losartan 03/31: Losartan dose increased to 100 mg daily and prescription was given. 2D echo March 29, 2025 Interpretation Summary The LV ejection fraction is 50 %. Left ventricular systolic function is lower limits of normal. possible Mild hypokinesis of the apical anterior septal wall The left atrium is mildly dilated The aortic root is mildly dilated at 3.8 cm Mild to moderate (1-2+) tricuspid valve insufficiency. Mild-Moderate (1-2+) mitral valve insufficiency. 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 Complicates acute care, expected recovery and prognosis. DVT prophylaxis: lovenox Discharge medication reconciliation done. Discharge follow-up instructions completed. Discharge process discussed with the patient and all questions were answered to patient's satisfaction. Follow with PCP in 1 to 2 weeks Total time spent, exact 35 minutes on discharge meds reconciliation, examination, coordination of care with nurses and ancillary staff, review of imaging and blood test and discussion with the patient on follow-up instructions. Medications at Discharge Home Medications calcium carbonate 600 mg PO DAILY supplement 01/04/18 levothyroxine 75 mcg tablet 75 mcg PO DAILY hypothyroid 01/04/18 conjugated estrogens 0.625 mg/gram vaginal cream (Premarin) 0.625 mg vaginal .Q3DAYS prevention 06/28/22 triamcinolone acetonide 0.5 % topical cream 1 applic topical DAILY PRN PRN ECZEMA 06/28/22 docusate sodium 50 mg capsule (Colace Clear) 100 mg PO PRN constipation 03/28/25 multivitamin with minerals-folic acid 0.4 mg tablet (One Daily Womens 50 Plus) 1 tab PO DAILY supplement 03/28/25 ondansetron HCl 4 mg tablet 4 mg PO Q8H PRN PRN nausea and vomiting 03/28/25 aspirin 81 mg chewable tablet 81 mg PO BREAKFAST 30 days #30 tabs 03/31/25 atenolol 50 mg tablet 25 mg (1/2 x 50 mg) PO DAILY 30 days #30 tabs 03/31/25 atorvastatin 40 mg tablet 40 mg PO QHS 30 days #30 tabs 03/31/25 losartan 100 mg tablet 100 mg PO DAILY 30 days #30 tabs 03/31/25 nitroglycerin 0.4 mg sublingual tablet 0.4 mg sublingual Q5M PRN Cardiac/Chest Pain 30 days #30 tabs 03/31/25 Physical Exam Narrative Seen and examined Physical exam General: Alert, Oriented x3, Cooperative HEENT: Atraumatic, PERRLA, EOMI, Normocephalic. Oral: No Gingival or Mucosal Lesions/ Ulcerations Neck: Supple, No JVD, Negative Carotid Bruits Chest wall/Lungs: Air entry diminished in bilateral lung bases. No crepitation/rhonchi Cardiovascular: Sinus 56/min. Bradycardia, Normal S1,S2, systolic murmur Abdomen: Bowel Sounds Present, Soft, Non Tender, Non-Distended : No dysuria. No renal angle tenderness. No suprapubic tenderness. Extremities: No edema, Capillary Refill Less than 3 Seconds Skin: Right arm TR band AFTER Heart cath. Musculoskeletal: No Tenderness to Palpation of Joints or Extremities. ROM full. Neurological: Cranial nerves II-XII grossly intact, DTR 2+/4. No acute focal neurological deficit. Psych/Mental Status: Normal Affect, Appropriate. Weight / BMI Weight Weight: 222 lb 14.197 oz Body Mass Index (BMI) 37.0 ABG / Lab / Microbiology Data 03/31/25 04:25 03/31/25 04:25 Laboratory: Laboratory Results - last 24 hr 03/31/25 04:25: WBC 6.2, RBC 3.74 L, Hgb 12.1, Hct 35.9 L, MCV 96.0, MCH 32.4 H, MCHC 33.7, RDW Std Deviation 43.6, RDW Coeff of Daryl 12.6, Plt Count 120 L, MPV 10.0, Immature Gran % (Auto) 0.300, Neut % (Auto) 64.4, Lymph % (Auto) 22.7, M vaughn % (Auto) 10.2 H, Eos % (Auto) 1.9, Baso % (Auto) 0.5, Absolute Neuts (auto) 4.0, Absolute Lymphs (auto) 1.40, Nucleated RBC % 0, Sodium 141, Potassium 3.8, Chloride 108, Carbon Dioxide 21.9, Anion Gap 10, BUN 12, Creatinine 0.75, Estim Creat Clear Calc 76.00, Est GFR (MDRD) Non-Af 85, BUN/Creatinine Ratio 15.8, Glucose 98, Calcium 8.7 D/C Instructions Discharge Diet: Low fat / Low cholesterol and 2000 mg Sodium Diet Weight Bearing Status: Weight bearing as tolerated Call your doctor if you observe: Fever of 101 or Higher, Coldness, Increased Pain, Numbness or Tingling, Change in Color, Inability to urinate, Inability to have a bowel movement, Shortness of breath, Dizziness, Fainting spells, Swelling in the ankles, Chest pain, Prolonged hiccupping, Increased palpitations (irregular heartbeat) and Calf discomfort DC O2, CPAP, BIPAP Needs Home O2 Discharge instructions: No When: IN 2 WEEKS Meaningful Use Info Meaningful Use Meaningful Use Diagnoses (Choose all that apply): None applicable Ischemic Stroke Statin Dosing Therapy Reference: STATIN DOSE THERAPY REFERENCE: * Patients > 75 years receive moderate or high dose statin therapy. * Patients 75 years or YOUNGER should receive HIGH intensity statin dose unless contraindicated. You will be required to document reason for non-treatment if statin daily dose does not meet guidelines. HIGH DOSE STATIN THERAPY DAILY Atorvastatin > than or = to 40 mg Rosuvastatin > than or = to 20 mg Amlodipine + Atorvastatin > than or = to 2.5/40 mg Ezetimibe + Simvastatin 10/80 mg Simvastatin 80mg Discharge Plan Admission Admit Date/Time: 03/28/25 17:41 Primary Reason for Your Visit: Atypical chest pain. Cardiac cath normal. Attending Provider: Eleazar Gonzalez Primary Care Provider: Khushboo Dudley Consulting Providers: Stoney Veronica; Loren De Souza Discharge Orders/Prescriptions Prescriptions: New atorvastatin 40 mg Tablet 40 mg PO QHS 30 Days Qty: 30 3RF nitroglycerin 0.4 mg Tablet, Sublingual 0.4 mg sublingual Q5M PRN (Reason: Cardiac/Chest Pain) 30 Days Qty: 30 0RF aspirin 81 mg Tablet,Chewable 81 mg PO BREAKFAST 30 Days Qty: 30 3RF losartan 100 mg Tablet 100 mg PO DAILY 30 Days Qty: 30 2RF atenolol 50 mg Tablet 25 mg PO DAILY 30 Days Qty: 30 0RF Rx Instructions: Hold for SBP less than 130 mmHg Continued triamcinolone acetonide 0.5 % cream 1 applic topical DAILY PRN PRN (Reason: ECZEMA) Premarin 0.625 mg/gram cream 0.625 mg vaginal .Q3DAYS levothyroxine 75 MCG tablet 75 mcg PO DAILY calcium carbonate 600 MG tablet 600 mg PO DAILY ondansetron HCl 4 mg tablet 4 mg PO Q8H PRN PRN (Reason: nausea and vomiting) multivit with min-folic acid [One Daily Womens 50 Plus] 0.4 mg tablet 1 tab PO DAILY Colace Clear 50 mg capsule 100 mg PO PRN Discontinued atenolol 50 MG tablet 50 mg PO BID losartan 50 mg tablet 50 mg PO DAILY Referrals / Follow Up: Stoney Veronica MD [Med Staff - Active Staff] - Within 1 Month Khushboo Dudley MD [Primary Care Provider] - Within 2 Weeks Disposition Disposition (needs filled in before D/C Order can be placed): Home, Self Care Charges/Coding Visit Charges Inpatient E&M: 13251 Disch Hosp >30min
--- NOTE | 2025-03-31 11:22 | CASEMGMT ---
Patient has order for discharge. RN CM in to discuss needs at discharge. Patient denies needs or help at discharge. Patient had no further questions or concerns.
--- NOTE | 2025-05-26 09:45 | CL.D_ITS ---
Patient Name: GUMARO CARRASQUILLO Study Date: 03/31/2025 Performing: Stoney Veronica MD Ht: 65 inches 165.1 cm : 1955 Wt: 222.89 lbs 101.1 kg Age: 70 Gender: female BSA: 2.07 PROCEDURE(S) PERFORMED [id number])LHC/COR/LV CLINICAL PROFILE AND INDICATIONS Indications: Suspected CAD Heart Failure: None Stress/Imaging Date: 03/28/25 CAD Presentations: Unstable angina. CONCLUSIONS Normal coronary arteries RECOMMENDATIONS Medical therapy DESCRIPTION OF PROCEDURE The patient arrived to the procedure lab. The risks and benefits of the procedure as well as a full description of our services here and current unavailability of surgical backup were fully explained to the patient and/or their significant other prior to the catheterization. The Timeout was completed, verifying the correct patient and procedure. The patient's procedural site was prepped and draped in the usual fashion. Local anesthetic was given subcutaneously to right radial region with Lidocaine 2%. Using a modified Seldinger technique, arterial access was obtained via the right radial artery, a 6Fr sheath was inserted. Left Coronary Artery selective angiography was performed in multiple views using a 5 Fr. 4.0 H[place]ord catheter. Right Coronary Artery selective angiography was then performed in multiple views using a 5 Fr. 4.0 [place]ord catheter. Left Ventriculography was performed in CORREA projection using a 5 Fr. Pigtail catheter. LV to AO pullback pressures were then recorded.The arterial sheath was pulled and a TR Band was applied for hemostasis.9cc of air CORONARY ANGIOGRAPHY DOMINANCE: Right Dominant LEFT HEART ASSESSMENT Left Ventricular Ejection Fraction: by Echo 60 % Normal LV wall motion Normal Left Ventricular systolic function LEFT MAIN: Angiographically normal LEFT ANTERIOR DESCENDING ARTERY: Mild luminal irregularities less than 30% CIRCUMFLEX ARTERY: Angiographically normal RAMUS: Angiographically normal RIGHT CORONARY ARTERY: Mild luminal irregularities COMPLICATIONS No Complications PROCEDURE MEDICATIONS Fentanyl 50 mcg IV Versed 1 mg IV Versed 1 mg IV Oxygen: 2 L/min via nasal cannula Heparin diluted in 23cc Heparinized saline. Patient given 10cc IA of this solution. 03/31/2025 08:16:27 Verapamil 2.5mg, Ntg 100mcgs, 2000 units of Heparin diluted in 23cc Heparinized saline. Patient given 10cc IA of this solution. 03/31/2025 08:16:27 SUMMARY OF HEMODYNAMIC DATA Time AIR REST ECG 08:02:20 AO 132/62 (89) SA 08:19:46 LV 112/13, 20 08:24:44 LV 111/7, 18 08:24:50 LV 127/8, 12 08:25:31 LVp 121/16, 26 08:25:40 AOp 128/57 (89) 08:25:45 Signed By Stoney Veronica MD On 03/31/2025 08:36:14 Signed By Stoney Veronica MD On 03/31/2025 08:35:33 Stoney Veronica MD
== END 2025-03-31 13:33 | disposition home or self-care (01) | DRG 287 ==
LOC: ED 14:46 → PCU 17:42
PROVIDERS: Admitting Provider Student in an Organized Health Care Education/Training Program; Emergency Provider Emergency Medicine; PCP Family Medicine; Visit Provider Internal Medicine
DX: R07.89 Other chest pain (principal); I45.2 Bifascicular block; D69.6 Thrombocytopenia, unspecified; E03.9 Hypothyroidism, unspecified; I10 Essential (primary) hypertension; E66.812 Obesity, class 2; E78.5 Hyperlipidemia, unspecified; I44.7 Left bundle-branch block, unspecified; R00.1 Bradycardia, unspecified; R94.39 Abnormal result of other cardiovascular function study; Z68.37 Body mass index [BMI] 37.0-37.9, adult; Z90.49 Acquired absence of other specified parts of digestive tract; Z87.891 Personal history of nicotine dependence; Z79.890 Hormone replacement therapy; Z79.899 Other long term (current) drug therapy
CPT/HCPCS: 36415; 71045; 78452; 80048; 80061; 83036; 84484; 85025; 85610; 85730; 93005; 93017; 93306; 93458; 97802; 99152; 99153; 99285; A9500; Q9967; A4216; C1769; C1894; J2785

== ENCOUNTER → 2025-06-05 | Outpatient (CLI) | payer MEDICARE, OTHER, SELFPAY ==
[2025-06-05 15:15] LABS: Hematocrit 38.4 % (37-47); Hemoglobin 12.8 g/dL (12.0-15.0); Immature Granulocytes Count 0.030 X10^3/uL (0.0-0.0); Mean Corp Hgb Conc 33.3 g/dL (32-36); Mean Corpuscular Volume 98.7 fL (81-99); Mean Platelet Vol. 10.4 fl (6.2-12.0); NRBC Flagged by Analyzer 0 % (0-5); Platelet Count 147 K/mm3 (150-450); RBC Distribution Width CV 12.7 % (11.6-14.6); RBC Distribution Width SD 46.3 fl (35.1-43.9); Red Blood Count 3.89 M/mm3 (4.2-5.4); White Blood Count 7.5 K/mm3 (4.4-11.0)
[2025-06-05 15:41] LABS: AST(SGOT) 18 U/L (<=31); Alanine Aminotransfer ALT/SGPT 12 U/L (<=34); Albumin, Serum 3.9 g/dL (3.4-4.8); Alkaline Phosphatase 81 U/L (35-104); Anion Gap 11 (5-15); BUN 16 mg/dL (4-19); BUN/Creat Ratio 19.7 RATIO (10-20); Calcium,Total 9.2 mg/dL (7.6-11.0); Carbon Dioxide 24.8 mmol/L (21.0-32.0); Chloride 105 mmol/L (98-108); Globulin 3.2 g/dL (2.2-4.2); Glucose 102 mg/dL (70-99); Potassium 4.0 mmol/L (3.3-5.1); T3 Total - Triiodothyronine 0.87 ng/mL (0.80-2.00)
== END | disposition home or self-care (01) ==
LOC: BFHLAB 11:54
PROVIDERS: PCP Family Medicine; Visit Provider Family Medicine
DX: I10 Essential (primary) hypertension (principal); E03.9 Hypothyroidism, unspecified; K58.0 Irritable bowel syndrome with diarrhea
CPT/HCPCS: 36415; 80053; 84439; 84443; 84480; 85025

== ENCOUNTER 2025-06-10 22:14 | Emergency (ER) | payer MEDICARE, OTHER, SELFPAY ==
[2025-06-10 22:15] VITALS: BP 156/77; PULSE 61; RESP 16; TEMP 37.2; O2SAT 99; BMI 33.4
--- NOTE | 2025-06-10 22:35 | EKG12_ITS ---
Test Reason : CP Blood Pressure : */* mmHG Vent. Rate : 55 BPM Atrial Rate : 55 BPM P-R Int : 176 ms QRS Dur : 148 ms QT Int : 452 ms P-R-T Axes : 42 -40 92 degrees QTcB Int : 432 ms Sinus bradycardia Left axis deviation Left bundle branch block Abnormal ECG Confirmed by SABA GUZMAN ([id number]), newspaper editor IRVING HOLLY ([id number]) on 06/11/2025 1:51:27 PM Referred By: RAHUL Confirmed By: SABA GUZMAN
--- NOTE | 2025-06-10 22:38 | ED.VIS.CHEST ---
HPI History of Present Illness Chief Complaint: Chest Pain Informant: patient and spouse/S.O. Narrative Narrative: 70-year-old female started having chest pressure around 12 hours ago, she states she was doing dishes at the time. It maintained until about 3:00 which is when she decided to take a couple nitroglycerin, the pain improved but then worsened later and has been persistent. Right now it is about 5/10. With this today, she has had some dyspnea, occasional palpitations/skipping, and lightheadedness. No diaphoresis, syncope, leg swelling/pain. She was admitted to the hospital for this after an abnormal outpatient stress test 2 months ago and had a heart cath. [facility] Medical History History of hypertension Diverticulosis Chest pain Vaginal vault prolapse Cystocele, midline Wears glasses Bladder disease Anemia Restless legs History of diverticulosis History of IBS Heartburn Former smoker History of edema History of stress test Fibromyalgia Diverticulosis HTN (hypertension) Hypothyroidism Diarrhea Epigastric pain Home Medications ?Medication ?Instructions ?Recorded ?Last Taken ?Type calcium carbonate 600 mg PO DAILY supplement 01/04/18 Unknown History levothyroxine 75 mcg tablet 75 mcg PO DAILY hypothyroid 01/04/18 03/28/25 07:00 History 75 mcg conjugated estrogens 0.625 mg/gram 0.625 mg vaginal .Q3DAYS prevention 06/28/22 Unknown History vaginal cream (Premarin) triamcinolone acetonide 0.5 % 1 applic topical DAILY PRN PRN 06/28/22 Unknown History topical cream ECZEMA docusate sodium 50 mg capsule 100 mg PO PRN constipation 03/28/25 Unknown History (Colace Clear) multivitamin with minerals-folic 1 tab PO DAILY supplement 03/28/25 03/28/25 07:00 History acid 0.4 mg tablet (One Daily 1 TAB Womens 50 Plus) ondansetron HCl 4 mg tablet 4 mg PO Q8H PRN PRN nausea and 03/28/25 Unknown History vomiting aspirin 81 mg chewable tablet 81 mg PO BREAKFAST 30 days #30 tabs 03/31/25 Unknown Rx atenolol 50 mg tablet 25 mg (1/2 x 50 mg) PO DAILY 30 03/31/25 Unknown Rx days #30 tabs atorvastatin 40 mg tablet 40 mg PO QHS 30 days #30 tabs 03/31/25 Unknown Rx losartan 100 mg tablet 100 mg PO DAILY 30 days #30 tabs 03/31/25 Unknown Rx nitroglycerin 0.4 mg sublingual 0.4 mg sublingual Q5M PRN 03/31/25 Unknown Rx tablet Cardiac/Chest Pain 30 days #30 tabs Allergy/AdvReac Type Severity Reaction Status Date / Time cefaclor ([facility]) Allergy Hives Verified 06/10/25 22:16 latex Allergy Rash Verified 06/10/25 22:16 Family History Mother Cancer lung Diabetes Colon polyps Father Hypertension Brother Diabetes Colon polyps Surgical History History of bladder suspension procedure History of esophagogastroduodenoscopy (EGD) Status post hysteroscopic myomectomy Infected cyst of Bartholin's gland duct Status post lymph node biopsy S/P cataract extraction S/P hysterectomy S/P rotator cuff repair H/O section S/P colonoscopy S/P laparoscopic cholecystectomy Status post dilation and curettage Social History Smoking Status: Former smoker ROS ROS ED Constitutional Constitutional ED: Denies chills or fever(s) Eyes Eyes: Denies change in vision or diplopia ENT ENT ED: Denies rhinorrhea or sore throat Cardiovascular Cardiovascular: Reports as per HPI, chest pain, lightheadedness and palpitations; Denies leg edema, radiating jaw, neck or arm pain or syncope Respiratory/Chest Respiratory/Chest: Reports dyspnea; Denies cough Gastrointestinal Gastrointestinal: Denies abdominal pain, diarrhea, nausea or vomiting Genitourinary Genitourinary ED: Denies dysuria or hematuria Musculoskeletal Musculoskeletal: Denies back pain or neck pain Integumentary Denies abscess or rash Neurologic Neurologic: Denies headache(s), paresthesias or weakness Psychiatric Psychiatric: Denies suicidal thoughts EXAM Physical Exam Const Vital Signs: 06/10/25 22:15 06/10/25 22:35 06/10/25 23:15 Temperature 98.9 F Temperature Source Oral Pulse Rate 61 53 L Respiratory Rate 16 17 Respiratory Effort Blood Pressure 156/77 H 130/65 H Blood Pressure Mean 103 86 Pulse Ox 99 96 Oxygen Delivery Method Room Air Room Air Room Air 06/10/25 23:59 06/11/25 00:00 06/11/25 01:00 Temperature Temperature Source Pulse Rate 55 L 56 L Respiratory Rate 17 18 Respiratory Effort Normal Non-Labored Blood Pressure 129/63 H 135/65 H Blood Pressure Mean 85 88 Pulse Ox 95 94 Oxygen Delivery Method Room Air Room Air Positive well nourished and well developed Constitutional Narrative: Well-appearing in no distress General Appearance ED: well developed and NAD HEENT Reports moist mucous membranes normocephalic and atraumatic Eyes PERRL and EOMs intact bilaterally Neck full ROM and supple Resp normal respiratory effort and clear to auscultation bilaterally Cardio regular rate, regular rhythm and no murmurs GI non-tender and non-distended Auscultation: normoactive bowel sounds Palpation: soft Back/Spine no CVA tenderness General Back: other FROM Extremity normal to inspection General Extremety ED: Negative for edema, pulses abnormal or tenderness General Extremity: Negative for edema or pulses abnormal Neuro oriented x3, CN's II-XII intact bilaterally and no sensory deficits noted Sensorium / Orientation: awake and alert Motor Exam: strength 5/5 throughout Skin no rashes or lesions noted and no wounds Heart Score History: Moderately Suspicious ECG: Normal (For her, left bundle branch block at baseline) Age: >/= 65 years Risk Factors: 1 or 2 Risk Factors Troponin: </= Normal Limit Score: 4 MDM MDM MDM Narrative Medical decision making narrative: Patient had a heart catheterization that showed nonobstructive coronary disease and it was very minimal. Patient keeps referring to her chest discomfort is angina, I discussed with her that this is less likely angina, and may be related to PVCs, or some other cardiac phenomenon, or could be noncardiac. Her EKG today -- stable left bundle branch block no acute injury pattern. Note from cardiology after her unremarkable heart catheterization interpreted her abnormal stress test as likely a false positive due to her left bundle branch block. Here, 2 sequential troponin measurements are both normal for a delta of 1, and the rest of her workup is unremarkable. Chest x-ray 1 view normal on my interpretation radiology in agreement. Patient had some waxing and waning symptoms here in the ED but overall comfortable. I do not think she needs more nitroglycerin, as I discussed with her this could be cardiac, she does have some rare PACs on the monitor, but unclear if they are related or not. It also could be noncardiac and/were GI related, I do not think she needs to be worked up for PE since her vital signs are really normal, her blood pressure right now 135/65. I am having respiratory place a 48-hour Holter on her, that way she can have diarrhea along with her symptoms and any ectopy to see if maybe this is related to her symptoms, and she can follow-up with her primary care, she was referred to cardiology to follow-up 1 month after her discharge from the hospital couple months ago, she has not yet made an appointment but I am fine with she follows up with her PCP first. History & Record Review Additional record(s) reviewed:: Prior labs (heart cath 2 months ago showing nonobstructive CAD 30% and 1 vessel at the most) Lab Data Attestation: I reviewed the patient's lab results. Labs: Laboratory Results - last 24 hr 06/10/25 06/11/25 22:43 00:28 WBC 7.3 RBC 3.79 L Hgb 12.4 Hct 36.9 L MCV 97.4 MCH 32.7 H MCHC 33.6 RDW Std Deviation 45.2 H RDW Coeff of Daryl 12.6 Plt Count 124 L MPV 10.1 Immature Gran % (Auto) 0.300 Neut % (Auto) 72.2 H Lymph % (Auto) 17.1 L Hoke % (Auto) 9.8 Eos % (Auto) 0.3 Baso % (Auto) 0.3 Absolute Neuts (auto) 5.3 Absolute Lymphs (auto) 1.25 Nucleated RBC % 0 Sodium 138 Potassium 3.7 Chloride 105 Carbon Dioxide 20.0 L Anion Gap 13 BUN 18 Creatinine 0.78 Estim Creat Clear Calc 71.96 Est GFR (MDRD) Non-Af 81 BUN/Creatinine Ratio 22.7 H Glucose 124 H Calcium 9.1 Troponin T High Sens 11 D Troponin T Hi Sens 2 Hr 12 Radiography Diagnostic Testing: Clinical Impression(s) from Imaging Studies Chest X-Ray 06/10/25 22:50 IMPRESSION: No Acute Findings. Reading Location: [facility] [place] Rhythm Strip Rhythm Strip: Sinus Rhythm Rate: 55 Ectopy: PAC(s) (rare) EKG Initial EKG: Attestation: I personally reviewed and interpreted this EKG as follows: Interpretation: Sinus Rhythm, No Acute Injury Pattern and LBBB Prior EKG tracings: available for review Prior: Unchanged Discharge Plan Triage Chief Complaint: Chest Pain ED Provider: Jamey Rosales Dx/Rx/DC Orders Clinical Impression: Chest pain, unspecified, PAC (premature atrial contraction) Instructions: ED Chest Pain, Uncertain Cause Prescriptions: No Action triamcinolone acetonide 0.5 % cream 1 applic topical DAILY PRN PRN (Reason: ECZEMA) Premarin 0.625 mg/gram cream 0.625 mg vaginal .Q3DAYS levothyroxine 75 MCG tablet 75 mcg PO DAILY calcium carbonate 600 MG tablet 600 mg PO DAILY ondansetron HCl 4 mg tablet 4 mg PO Q8H PRN PRN (Reason: nausea and vomiting) multivit with min-folic acid [One Daily Womens 50 Plus] 0.4 mg tablet 1 tab PO DAILY Colace Clear 50 mg capsule 100 mg PO PRN atorvastatin 40 mg Tablet 40 mg PO QHS 30 Days Qty: 30 3RF nitroglycerin 0.4 mg Tablet, Sublingual 0.4 mg sublingual Q5M PRN (Reason: Cardiac/Chest Pain) 30 Days Qty: 30 0RF aspirin 81 mg Tablet,Chewable 81 mg PO BREAKFAST 30 Days Qty: 30 3RF losartan 100 mg Tablet 100 mg PO DAILY 30 Days Qty: 30 2RF atenolol 50 mg Tablet 25 mg PO DAILY 30 Days Qty: 30 0RF Rx Instructions: Hold for SBP less than 130 mmHg Primary Care Provider: Khushboo Dudley Referrals: Khushboo Dudley MD [Primary Care Provider] - (gris after you turn in your monitor) Print Language: American Disposition Disposition: Home, Self Care
--- OUTSIDE RECORDS SUMMARY | 2025-06-10 22:47 | XMS RPT_ITS | CCD ---
Author Organization [facility] Care Team Providers Care Environmental Protection Specialist Name Role Phone Dr. Khushboo Dudley Primary Care Provider Yoselin Patiño Attending Provider Unavailable Dr. Khushboo Dudley Primary Care Provider Yoselin Patiño Attending Provider Unavailable Dr. Khushboo Dudley Referring Provider FriendDr. Art Attending Provider FriendDr. Art Other Provider Dr. Khushboo Dudley MD Primary Care Provider Dr. Khushboo Dudley MD Attending Provider Dr. Khushboo Dudley MD Referring Provider Dr. Khushboo Dudley MD Other Provider Dr. Robbi Yu MD Attending Provider Dr. Davey Bosch DO Emergency Provider Aster GARCIA, Dr. Loren Aguilar Admit Provider [phone] Aster GARCIA, Dr. Loren Aguilar Attending Provider Aster GARCIA, Dr. Loren Aguilar Other Provider Glenys GARCIA, Dr. Lua Other Provider Carlos GARCIA, Dr. Bush Attending Provider Sandra GARCIA, Dr. Krause Attending Provider Unavaila ble Aster GARCIA, Dr. Loren Aguilar Attending Provider Sandra GARCIA, Dr. Krause Other Provider Unavailable Dr. Johana Neff DO Attending Provider Glenys GARCIA, Dr. Lua Attending Provider Carlos GARCIA, Dr. Bush Other Provider Miedel, Khushboo Primary Care Unavailable Miedel, Khushboo Referring Unavailable Miedel, Khushboo Attending Unavailable Miedel, Khushboo Primary Care Unavailable Miedel, Khushboo Referring Unavailable Miedel, Khushboo Attending Unavailable Miedel, Khushboo Primary Care Unavailable Koram, Loren Lauren Consulting Unavailable Eleazar oGnzalez Attending Unavailable Koram, Loren Lauren Admitting Unavailable Glenys, Stoney Consulting Unavailable Miedel, Khushboo Primary Care Unavailable Miedel, Khushboo Attending Unavailable Miedel, Khushboo Primary Care Unavailable Koram, Loren Lauren Admitting Unavailable Glenys, Stoney Consulting Unavailable Glenys, Stoney Attending Unavailable Koram, Loren Lauren Consulting Unavailable Eleazar Gonzalez Consulting Unavailable Eleazar Gonzalez Attending Unavailable Miedel, Khushboo Primary Care Unavailable Sandra, Jimi Attending Unavailable Miedel, Khushboo Consulting Unavailable Miedel, Khushboo Primary Care Unavailable Miedel, Khushboo Referring Unavailable Robbi Yu Attending Unavailable Koram, Loren Lauren Attending Unavailable Sandra, Jimi Consulting Unavailable Sandra, Jimi Attending Unavailable Miedel, Khushboo Primary Care Unavailable Miedel, Khushboo Referring Unavailable Miedel, Khushboo Attending Unavailable Miedel, Khushboo Primary Care Unavailable Miedel, Khushboo Referring Unavailable Miedel, Khushboo Attending Unavailable Allergies Allergy Classification Reported Allergen(s) Allergy Type Date of Onset Reaction(s) Facility (11 sources) Cefaclor Drug Allergy 08-02-2021 [facility] (11 sources) Latex Allergy to substance 08-02-2021 Rash [facility] (1 source) Cefaclor Drug Allergy 03-28-2025 [facility] (1 source) Latex Drug allergy (disorder) 03-28-2025 [facility] Medications Current Medications Medication Drug Class(es) Dates Sig (Normalized) Sig (Original) acetaminophen 325 mg / oxyCODONE hydrochloride 5 mg oral tablet (2 sources) Opioid Agonist Start: 08-09-2021 take 2 tablets by mouth every eight hours as needed Oxycodone-Acetam inophen Active 2 TABLET PO EVERY 8 HOURS NEEDED 04 05August 09, 2021 [id number] 200 actuat albuterol 0.09 mg/actuat metered dose inhaler (1 source) beta2-Adrenergic Agonist Start: 06-28-2022 take 1 puff(s) by inhalation every six hours Albuterol Sulfate Active 2 PUFF INHALATION EVERY 6 HOURS June 28, 2022 12:00am aspirin 81 mg chewable tablet (2 sources) Platelet Aggregation Inhibitor, Nonsteroidal Anti-inflammatory Drug Start: 03-31-2025 take 1 tablet by mouth at breakfast Aspirin 81 mg Tablet,Chewable Active 81 mg PO WITH BREAKFAST March 31, 2025 12:00am atenolol 50 mg oral tablet (13 sources) beta-Adrenergic Elana Start: 03-31-2025 Atenolol 50 mg Tablet Active 25 mg PO DAILY March 31, 2025 12:00am Hold for SBP less than 130 mmHg Start: 01-04-2018 End: 03-31-2025 take 1 tablet by mouth twice daily Atenolol 50 MG tablet Discontinued 50 mg PO TWICE A DAY January 04, 2018 12:00am March 31, 2025 10:37am atorvastatin 40 mg oral tablet (2 sources) HMG-CoA Reductase Inhibitor Start: 03-31-2025 take 1 tablet by mouth at bedtime Atorvastatin 40 mg Tablet Active 40 mg PO AT BEDTIME March 31, 2025 12:00am calcium carbonate 1500 mg oral tablet (11 sources) Start: 01-04-2018 take 1 tablet by mouth once daily Calcium Carbonate 600 MG tablet Active 600 mg PO DAILY January 04, 2018 12:00am Start: 01-04-2018 take 2 tablets by [facility] once daily Calcium Carbonate 600 MG tablet Active 1200 mg PO DAILY January 04, 2018 12:00am Start: 01-04-2018 take 1200 mg by mouth once [facility] [facility] Calcium Carbonate Active 1200 MG PO DAILY January 03, 2018 11:00pm docusate sodium 50 mg oral capsule (2 sources) Start: 03-28-2025 Docusate Sodiu m (Colace Clear) 50 mg capsule Active 100 mg PO NEEDED March 28, 2025 12:00am estrogens, conjugated (penitentiary) 0.625 mg/ml vaginal cream (10 sources) Estrogen Start: 06-28-2022 Conjugated Est rogens [...] 12:00am levothyroxine sodium 0.075 mg oral tablet (11 sources) l-Thyroxine Start: 01-04-2018 take 1 tablet by mouth once daily Levothyroxine 75 MCG tablet Active 75 ug PO DAILY January 04, 2018 12:00am losartan potassium 100 mg oral tablet (5 sources) Angiotensin 2 Receptor Elana Start: 03-31-2025 take 1 tablet by mouth once daily Losartan 100 mg Tablet Active 100 mg PO DAILY 30 March 31, 2025 12:00am Start: 03-28-2025 End: 03-31-2025 take 1 tablet by mouth once daily Losartan 50 mg tablet Discontinued 50 mg PO DAILY March 28, 2025 12:00am March 31, 2025 10:37am Multivit With Min-Folic Acid (One Daily Womens 50 Plus) 0.4 mg tablet (2 sources) Start: 03-28-2025 Multivit With Min-Folic Acid (One Daily Womens 50 Plus) 0.4 mg tablet Active 1 {tbl} PO DAILY March 28, 2025 12:00am Baxziffksjkr-Spor-Rpgta Acid (Centrum Women) 18-400 mg-mcg Tablet (7 sources) Start: 08-29-2022 Multivitamin-I abhijit-Folic Acid (Centrum Women) 18-400 mg-mcg Tablet Active 1 {tbl} PO DAILY August 29, 2022 1:00am Start: 08-29-2022 take 1 tablet by laura once daily Mkfikutgeqip-Pxup-Wwskk Acid (Centrum Women) 18-400 mg-mcg Tablet Active 1 TABLET PO DAILY August 29, 2022 1:00am Start: 08-29-2022 take 1 tablet by laura th once daily Xxahlqgnwhsg-Uebg-Qjxyh Acid (Centrum Women) 18-400 mg-mcg Tablet Active 1 TABLET PO DAILY August 29, 2022 12:00am nitroglycerin 0.4 mg sublingual tablet (2 sources) Nitrate Vasodilator Start: 03-31-2025 Nitroglycerin 0.4 mg Tablet, Sublingual Active 0.4 mg SL Q5M as needed for Cardiac/Chest Pain March 31, 2025 12:00am ondansetron 4 mg oral tablet (16 sources) Serotonin-3 Receptor Antagonist Start: 03-28-2025 take [...] 8 MG PO EVERY 8 HOURS NEEDED 04 05August 09, 2021 12:00am Start: 01-04-2018 End: 03-28-2025 [...] 12:00am triamcinolone acetonide 5 mg/ml topical cream (10 sources) Corticosteroid Start: 06-28-2022 Triamcinolone Acetonide 0.5 % cream Active 1 NMA TOPICAL DAILY NEEDED as needed for ECZEMA June 28, 2022 12:00am Completed/Discontinued Medications Medication Drug Class(es) Dates Sig (Normalized) Sig (Original) dicyclomine hydrochloride 20 mg oral tablet (11 sources) Anticholinergic Start: 01-04-2018 End: 06-28-2022 take 1 tablet by mouth four times daily as needed Dicyclomine 20 MG tablet Discontinued 20 mg PO 4 TIMES DAILY as needed for Irritable Bowel Syndrome January 04, 2018 12:00am June 28, 2022 9:09am lisinopril 10 mg oral tablet (11 sources) Angiotensin Converting Enzyme Inhibitor Start: 08-02-2021 End: 03-28-2025 take 1 tablet by mouth twice daily Lisinopril 10 mg Tablet Discontinued 10 mg PO TWICE A DAY August 02, 2021 12:00am March 28, 2025 4:24pm Start: 08-02-2021 take 10 mg by mouth once daily Lisinopril Active 10 MG PO DAILY August 02, 2021 12:00am Multivitamin Capsule (6 sources) Start: 08-02-2021 End: 06-28-2022 Multivitamin Capsule [...] Start: 08-02-2021 take 1 capsule by mo [facility] once daily Multivitamin Active 1 CAP PO DAILY August 02, 2021 12:00am predniSONE 20 mg oral tablet (11 sources) Start: 06-20-2021 End: 06-25-2021 take 2 [...] 2021 11:01pm raNITIdine 300 mg oral tablet (11 sources) Histamine-2 Receptor Antagonist Start: 01-04-2018 End: 03-14-2018 take 1 tablet by mouth once daily Ranitidine Hcl 300 MG tablet Discontinued 300 mg PO DAILY January 04, 2018 12:00am March 14, 2018 1:34pm WHEAT DEXTRIN (11 sources) Start: 08-02-2021 End: 06-28-2022 Wheat Dextrin [...] Date Documented Da te Episodic/Chronic Acute bronchitis (11 sources) Acute bronchitis; Translations: [Acute bronchitis, unspecified] 06-20-2021 Episodic Coronary atherosclerosis and other heart disease (5 sources) Coronary arteriosclerosis; Translations: [Atherosclerotic heart disease of [place] coronary artery without angina pectoris] Onset: 04-23-2025 03-28-2025 Chronic Essential hypertension (1 source) Essential (primary) hypertension; Translations: [Essential (primary) hypertension] Onset: 02-25-2025 Chronic Nonmalignant breast conditions (1 source) Unspecified lump in the right breast, unspecified quadrant; Translations: [Unspecified lump in the right breast, unspecified quadrant] Onset: 03-22-2025 Episodic Nonspecific chest pain (7 sources) Chest pain; Translations: [Chest pain, unspecified] Onset: 04-14-2025 03-28-2025 Episodic Comment on above: PCP AWARE, INCREASED MEDS Other circulatory disease (4 sources) H/O: hypertension; Translations: [Personal history of other diseases of the circulatory system] 03-28-2025 Episodic Other circulatory disease (1 source) Personal history of other diseases of the circulatory system; Translations: [Personal history of other diseases of the circulatory system] Onset: 04-23-2025 Episodic Other screening for suspected conditions (not mental disorders or infectious disease) (17 sources) Patient encounter status; Translations: [Encounter for screening for malignant neoplasm of colon] Onset: 03-11-2025 Episodic Prolapse of female genital organs (20 sources) Vaginal vault prolapse; 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, [address] Absolute Neut 5.7 X10 3/uL Normal 2.0-7.7 [facility] Comment on above: Performed By: #### L 501.9187, L100.0100, L506.0400, L500.4050, L501.9520 #### [facility] [address] [place], [address] Basophils/100 WBC (Bld) 0.4 % Normal 0-1 [facility] Comment on above: Performed By: #### L 501.9187, L100.0100, L506.0400, L500.4050, [id number] #### [facility] [address] [place], [address] Eosinophils/100 WBC (Bld) 0.4 % Normal 0-5 [facility] Comment on above: Performed By: #### L 501.9187, L100.0100, L506.0400, L500.4050, L501.9520 #### [facility] [address] [place], [address] Erythrocyte distribution width (RBC) [Ratio] 12.7 % Normal 11.6-14.6 [facility] Comment on above: Performed By: #### L 501.9187, L100.0100, L506.0400, L500.4050, L501.9520 #### [facility] [address] [place], [address] Hematocrit (Bld) [Volume fraction] 38.4 % Normal 37-47 [facility] Comment on above: Performed By: #### L 501.9187, L100.0100, L506.0400, L500.4050, L501.9520 #### [facility] [address] [place], [address] Hemoglobin (Bld) [Mass/Vol] 12.8 g/dL Normal 12.0-15.0 [facility] Comment on above: Performed By: #### L 501.9187, L100.0100, L506.0400, L500.4050, L501.9520 #### [facility] [address] [place], [address] IG% 0.400 Normal 0.0-0.9 [facility] Comment on above: Result Comment: IG% - Immature Granulocytes (promyelocytes, myelocytes and metamyelocytes) > 1% indicates that a LEFT SHIFT is Present. Performed By: #### L 501.9187, L100.0100, L506.0400, L500.4050, L501.9520 #### [facility] [address] [place], [address] Lymphocytes/100 WBC (Bld) 14.8 % Low 19-41 [facility] Comment on above: Performed By: #### L 501.9187, L100.0100, L506.0400, L500.4050, L501.9520 #### [facility] [address] [place], [address] MCH (RBC) [Entitic mass] 32.9 pg High 27.0-32.0 [facility] Comment on above: Performed By: #### L 501.9187, L100.0100, L506.0400, L500.4050, L501.9520 #### [facility] [address] [place], [address] MCHC (RBC) [Mass/Vol] 33.3 g/dL Normal 32-[address] [facility] Comment on above: Performed By: #### L 501.9187, L100.0100, L506.0400, L500.4050, L501.9520 #### [facility] [address] [place], [address] MCV (RBC) [Entitic vol] 98.7 fL Normal 81-99 [facility] Comment on above: Performed By: #### L 501.9187, L100.0100, L506.0400, L500.4050, L501.9520 #### [facility] [address] [place], [address] Monocytes/100 WBC (Bld) 8.1 % Normal 0-10 [facility] Comment on above: Performed By: #### L 501.9187, L100.0100, L506.0400, L500.4050, L501.9520 #### [facility] [address] [place], [address] Neutrophils/100 WBC (Bld) 75.9 % High 47-70 [facility] Comment on above: Performed By: #### L 501.9187, L100.0100, L506.0400, L500.4050, L501.9520 #### [facility] [address] [place], [address] Nucleated RBC (Bld) [#/Vol] 0 10*3/uL Normal 0-5 [facility] Comment on above: Performed By: #### L 501.9187, L100.0100, L506.0400, L500.4050, L501.9520 #### [facility] [address] [place], [address] Platelet mean volume (Bld) [Entitic vol] 10.4 fL Normal 6.2-12.0 [facility] Comment on above: Performed By: #### L 501.9187, L100.0100, L506.0400, L500.4050, L501.9520 #### [facility] [address] [place], [address] Platelets (Bld) [#/Vol] 147 10*3/uL Low 150-450 [facility] Comment on above: Performed By: #### L 501.9187, L100.0100, L506.0400, L500.4050, L501.9520 #### [facility] [address] [place], [address] RBC (Bld) [#/Vol] 3.89 10*6/uL Low 4.2-5.4 [facility] Comment on above: Performed By: #### L 501.9187, L100.0100, L506.0400, L500.4050, L501.9520 #### [facility] [address] [place], [address] RDW SD 46.3 fl High 35.1-43.9 [facility] Comment on above: Performed By: #### L 501.9187, L100.0100, L506.0400, L500.4050, L501.9520 #### [facility] [address] [place], [address] WBC (Bld) [#/Vol] 7.5 10*3/uL Normal 4.4-11.0 [facility] Comment on above: Performed By: #### L 501.9187, L100.0100, L506.0400, L500.4050, L501.9520 #### [facility] [address] [place], [address] Comprehensive Metabolic Prof [facility] 06-05-2025 Albumin [Mass/Vol] 3.9 g/dL Normal 3.4-4.8 [facility] Comment on above: Performed By: #### L 501.9187, L100.0100, L506.0400, L500.4050, L501.9520 #### [facility] [address] [place], [address] Albumin/Globulin [Mass ratio] 1.2 {ratio} Normal 0.9-2.4 [facility] Comment on above: Performed By: #### L 501.9187, L100.0100, L506.0400, L500.4050, L501.9520 #### [facility] [address] [place], [address] ALK PHOS 81 U/L Normal 35-104 [facility] Comment on above: Performed By: #### L 501.9187, L100.0100, L506.0400, L500.4050, L501.9520 #### [facility] [address] [place], [address] ALT [Catalytic activity/Vol] 12 U/L Normal <=34 [facility] Comment on above: Performed By: #### L 501.9187, L100.0100, L506.0400, L500.4050, L501.9520 #### [facility] [address] [place], [address] AST [Catalytic activity/Vol] 18 U/L Normal <=31 [facility] Comment on above: Performed By: #### L 501.9187, L100.0100, L506.0400, L500.4050, L501.9520 #### [facility] [address] [place], [address] Bilirubin [Mass/Vol] 0.27 mg/dL Normal 0.00-1.[address] [facility] Comment on above: Performed By: #### L 501.9187, L100.0100, L506.0400, L500.4050, L501.9520 #### [facility] [address] [place], [address] BUN/CRE 19.7 RATIO Normal 10-20 [facility] Comment on above: Performed By: #### L 501.9187, L100.0100, L506.0400, L500.4050, L501.9520 #### [facility] [address] [place], [address] Calcium [Mass/Vol] 9.2 mg/dL Normal 7.6-11.0 [facility] Comment on above: Performed By: #### L 501.9187, L100.0100, L506.0400, L500.4050, L501.9520 #### [facility] [address] [place], [address] Chloride [Moles/Vol] 105 mmol/L Normal 98-[address] [facility] Comment on above: Performed By: #### L 501.9187, L100.0100, L506.0400, L500.4050, L501.9520 #### [facility] [address] [place], [address] CO2 [Moles/Vol] 24.8 mmol/L Normal 21.0-32.0 [facility] Comment on above: Performed By: #### L 501.9187, L100.0100, L506.0400, L500.4050, L501.9520 #### [facility] [address] [place], [address] Creatinine [Mass/Vol] 0.79 mg/dL Normal 0.70-1.[address] [facility] Comment on above: Performed By: #### L 501.9187, L100.0100, L506.0400, L500.4050, L501.9520 #### [facility] [address] [place], [address] GAP 11 Normal 5-15 [facility] Comment on above: Performed By: #### L 501.9187, L100.0100, L506.0400, L500.4050, L501.9520 #### [facility] [address] [place], [address] GFR/1.73 sq M.predicted among non-blacks MDRD (S/P/Bld) [Vol rate/Area] 80 mL/min/{1.73_m2} Normal >60 [facility] Comment on above: Result Comment: mL/m in/1.73m2 CKD-EPI Creatinine Equation (2020) Performed By: #### L 501.9187, L100.0100, L506.0400, L500.4050, L501.9520 #### [facility] [address] [place], [address] Globulin (S) [Mass/Vol] 3.2 g/dL Normal 2.2-4.2 [facility] Comment on above: Performed By: #### L 501.9187, L100.0100, L506.0400, L500.4050, L501.9520 #### [facility] [address] [place], [address] Glucose [Mass/Vol] 102 mg/dL High 70-99 [facility] Comment on above: Performed By: #### L 501.9187, L100.0100, L506.0400, L500.4050, L501.9520 #### [facility] [address] [place], [address] Potassium [Moles/Vol] 4.0 mmol/L Normal 3.3-5.[address] [facility] Comment on above: Performed By: #### L 501.9187, L100.0100, L506.0400, L500.4050, L501.9520 #### [facility] [address] [place], [address] Sodium [Moles/Vol] 141 mmol/L Normal 133-145 [facility] Comment on above: Performed By: #### L 501.9187, L100.0100, L506.0400, L500.4050, L501.9520 #### [facility] [address] [place], [address] T PROT 7.1 g/dL Normal 5.9-8.4 [facility] Comment on above: Performed By: #### L 501.9187, L100.0100, L506.0400, L500.4050, L501.9520 #### [facility] [address] [place], [address] Urea nitrogen [Mass/Vol] 16 mg/dL Normal 4-19 [facility] Comment on above: Performed By: #### L 501.9187, L100.0100, L506.0400, L500.4050, L501.9520 #### [facility] [address] [place], [address] L501.9187on 06-05-2025 T3 Total 0.87 ng/mL Normal 0.80-2.00 [facility] Comment on above: Performed By: #### L 501.9187, L100.0100, L506.0400, L500.4050, L501.9520 #### [facility] [address] [place], [address] T4 Free Directon 06-05-2025 T4 FREE DIRECT 1.40 ng/dL Normal 0.76-1.46 [facility] Comment on above: Performed By: #### L 501.9187, L100.0100, L506.0400, L500.4050, L501.9520 #### [facility] [address] [place], [address] Thyroid Stim Hormone (TSH)on 06-05-2025 TSH 0.588 uIU/mL Normal 0.300-4.20 0 [facility] Comment on above: Performed By: #### L 501.9187, L100.0100, L506.0400, L500.4050, L501.9520 #### [facility] [address] [place], [address] Cardiac Cath Diagnosticon Cardiac Cath Diagnostic [facility] Imaging Services [address] [place] [address] Cardiac Cath Diagnostic MR#: [id number] Acct: [id number] Name: GUMARO CARRASQUILLO Rep #: [id number] : 1955 70 From: Stoney Veronica MD PCP: Dr. Khushboo Dudley MD Status:DIS IN Patient Name: GUMARO CARRASQUILLO Study Date: 03/31/2025 Performing: Stoney Veronica MD Ht: 65 inches 165.1 cm : 1955 Wt: 222.89 lbs 101.1 kg Age: 70 Gender: female BSA: 2.07 PROCEDURE(S) PERFORMED DC01-(57106)LHC/COR/LV CLINICAL PROFILE AND INDICATIONS Indications: Suspected CAD Heart Failure: None Stress/Imaging Date: 03/28/25 CAD Presentations: Unstable angina. CONCLUSIONS Normal coronary arteries RECOMMENDATIONS Medical therapy DESCRIPTION OF PROCEDURE The patient arrived to the procedure lab. The risks and benefits of the procedure as well as a full description of our services here and current unavailability of surgical backup were fully explained to the patient and/or their significant other prior to the catheterization. The Timeout was completed, verifying the correct patient and procedure. The patient's procedural site was prepped and draped in the usual fashion. Local anesthetic was given subcutaneously to right radial region with Lidocaine 2%. Using a modified Seldinger technique, arterial access was obtained via the right radial artery, a 6Fr sheath was inserted. Left Coronary Artery selective angiography was performed in multiple views using a 5 Fr. 4.0 Loxley catheter. Right Coronary Artery selective angiography was then performed in multiple views using a 5 Fr. 4.0 [place]ley catheter. Left Ventriculography was performed in CORREA projection using a 5 Fr. Pigtail catheter. LV to AO pullback pressures were then recorded.The arterial sheath was pulled and a TR Band was applied for hemostasis.9cc of air CORONARY ANGIOGRAPHY DOMINANCE: Right Dominant LEFT HEART ASSESSMENT Left Ventricular Ejection Fraction: by Echo 60 % Normal LV wall motion Normal Left Ventricular systolic function LEFT MAIN: Angiographically normal LEFT ANTERIOR DESCENDING ARTERY: Mild luminal irregularities less than 30% CIRCUMFLEX ARTERY: Angiographically normal RAMUS: Angiographically normal RIGHT CORONARY ARTERY: Mild luminal irregularities COMPLICATIONS No Complications PROCEDURE MEDICATIONS Fentanyl 50 mcg IV Versed 1 mg IV Versed 1 mg IV Oxygen: 2 L/min via nasal cannula Heparin diluted in 23cc Heparinized saline. Patient given 10cc IA of this solution. 03/31/2025 08:16:27 Verapamil 2.5mg, Ntg 100mcgs, 2000 units of Heparin diluted in 23cc Heparinized saline. Patient given 10cc IA of this solution. 03/31/2025 08:16:27 SUMMARY OF HEMODYNAMIC DATA Time AIR REST ECG 08:02:20 AO 132/62 (89) SA 08:19:46 LV 112/13, 20 08:24:44 LV 111/7, 18 08:24:50 LV 127/8, 12 08:25:31 LVp 121/16, 26 08:25:40 AOp 128/57 (89) 08:25:45 Signed By Stoney Veronica MD On 03/31/2025 08:36:14 Signed By Stoney Veronica MD On 03/31/2025 08:35:33 Stoney Veronica MD 05/26/25 0945 Date Stoney Veronica MD Cosigner Signature: Date (if indicated) CC: Dr. Stoney Veronica MD; Dr. Khushboo Dudley MD; Dr. Eleazar Gonzalez MD Date Dictated: 03/31/25814 Date Transcribed: 03/31/25835 Licensed Acupuncturist: [place] Signed [facility] 12 Lead EKGon 03-31-2025 12 Lead EKG [facility] Cardiovascular Services [address] [place] [address] 12 Lead EKG 03/31/25 0945 MR#: [id number] Acct: [id number] Name: GUMARO CARRASQUILLO Rep #: [id number] : 1955 70 From: Stoney Veronica MD Attending Dr: Dr. Eleazar Gonzalez MD Status: DIS IN Ordering Dr: Loren De Souza MD Date: 03/31/25 Location: [facility] Sex: F C Admitted: 03/28/25 Test Reason : POST OP Blood Pressure : */* mmHG Vent. Rate : 57 BPM Atrial Rate : 57 BPM P-R Int : 196 ms QRS Dur : 138 ms QT Int : 462 ms P-R-T Axes : 71 -35 82 degrees QTcB Int : 449 ms Sinus bradycardia Left axis deviation Left bundle branch block Abnormal ECG When compared with ECG of 31-Mar-2025 05:20, MANUAL COMPARISON REQUIRED DATA IS UNCONFIRMED Confirmed by GLENYS GARCIA, STONEY ([id number]), book editor IRVING HOLLY ([id number]) on 04/02/2025 7:30:16 AM Referred By: ASTER Confirmed By: STONEY VERONICA MD 04/02/25729 Date Stoney Veronica MD CC: Dr. Khushboo Dudley MD; Dr. Loren De Souza MD; Dr. Eleazar Gonzalez MD Signed [facility] 12 Lead EKG [facility] Cardiovascular Services [address] [place] [address] 12 Lead EKG 03/30/25 0555 MR#: [id number] Acct: [id number] Name: GUMARO CARRASQUILLO Rep #: [id number] : 1955 70 From: Stoney Veronica MD Attending Dr: Dr. Eleazar Gonzalez MD Status: DIS IN Ordering Dr: Johana Neff DO Date: 03/31/25 Location: [facility] Sex: F C Admitted: 03/28/25 Test Reason : CP Blood Pressure : */* mmHG Vent. Rate : 64 BPM Atrial Rate : 64 BPM P-R Int : 188 ms QRS Dur : 142 ms QT Int : 450 ms P-R-T Axes : 66 -43 81 degrees QTcB Int : 464 ms Normal sinus rhythm Left axis deviation Left bundle branch block Abnormal ECG When compared with ECG of 28-Mar-2025 21:03, MANUAL COMPARISON REQUIRED DATA IS UNCONFIRMED Confirmed by STONEY VERONICA MD ([id number]), book editor ANTHONY HADLEY ([id number]) on 04/01/2025 8:27:43 AM Referred By: Confirmed By: STONEY VERONICA MD 04/01/25 0827 Date Stoney Veronica MD CC: Dr. Khushboo Dudley MD; Dr. Johana Neff DO; Dr. Eleazar Gonzalez MD Signed Normal [facility] Absolute lymphocyte countOrd ered By: Loren De Souza on 03-31-2025 Lymphocytes Auto (Unsp spec) [#/Vol] 1.40 10*3/uL 0.83-4.51 [facility] Absolute neutrophil countOrd ered By: Loren De Souza on 03-31-2025 Neutrophils (Bld) [#/Vol] 4.0 10*3/uL 2.0-7.7 [facility] Anion gap in Serum or Plasma Ordered By: Loren De Souza on 03-31-2025 Anion gap [Moles/Vol] 10 mmol/L -[address] [facility] Automated lymphocyte count a s percentage of total leukocytesOrdered By: Loren De Souza on 03-31-2025 Lymphocytes/100 WBC Auto (Unsp spec) 22.7 % - [facility] BUN/creatinine ratioOrdered By: Loren De Souza on 03-31-2025 Urea nitrogen/Creatinine [Mass ratio] 15.8 mg/mg 10- [facility] Basic Metabolic Profile (BMP )on 03-31-2025 BUN/CRE 15.8 RATIO Normal - [facility] Comment on above: Performed By: #### L 100.0100, L500.2500 #### [facility] [address] [place], [address] Calcium [Mass/Vol] 8.7 mg/dL Normal 7.6-11.0 [facility] Comment on above: Performed By: #### L 100.0100, L500.2500 #### [facility] [address] [place], [address] Chloride [Moles/Vol] 108 mmol/L Normal 98-[address] [facility] Comment on above: Performed By: #### L 100.0100, L500.2500 #### [facility] [address] [place], [address] CO2 [Moles/Vol] 21.9 mmol/L Normal 21.0-32.0 [facility] Comment on above: Performed By: #### L 100.0100, L500.2500 #### [facility] [address] [place], [address] Creatinine [Mass/Vol] 0.75 mg/dL Normal 0.70-1.[address] [facility] Comment on above: Performed By: #### L 100.0100, L500.2500 #### [facility] [address] [place], [address] ECRCL 76.00 ml/min Normal 50-250 [facility] Comment on above: Performed By: #### L 100.0100, L500.2500 #### [facility] [address] [place], [address] GAP 10 Normal 5-15 [facility] Comment on above: Performed By: #### L 100.0100, L500.2500 #### [facility] [address] [place], [address] GFR/1.73 sq M.predicted among non-blacks MDRD (S/P/Bld) [Vol rate/Area] 85 mL/min/{1.73_m2} Normal >60 [facility] Comment on above: Result Comment: mL/m in/1.73m2 CKD-EPI Creatinine Equation (2020) Performed By: #### L 100.0100, L500.2500 #### [facility] [address] [place], [address] Glucose [Mass/Vol] 98 mg/dL Normal 70-99 [facility] Comment on above: Performed By: #### L 100.0100, L500.2500 #### [facility] [address] [place], [address] Potassium [Moles/Vol] 3.8 mmol/L Normal 3.3-5.[address] [facility] Comment on above: Performed By: #### L 100.0100, L500.2500 #### [facility] [address] [place], [address] Sodium [Moles/Vol] 141 mmol/L Normal 133-145 [facility] Comment on above: Performed By: #### L 100.0100, L500.2500 #### [facility] [address] [place], [address] Urea nitrogen [Mass/Vol] 12 mg/dL Normal 4-19 [facility] Comment on above: Performed By: #### L 100.0100, L500.2500 #### [facility] [address] [place], [address] Basophil percentageOrdered B y: Loren De Souza on 03-31-2025 Basophils/100 WBC (Bld) 0.5 % 0-1 [facility] CBC W/Diff, Automatedon 03-16 Absolute Lymph 1.40 X10 3/uL Normal 0.83-4.51 [facility] Comment on above: Performed By: #### L 100.0100, L500.2500 #### [facility] [address] [place], [address] Absolute Neut 4.0 X10 3/uL Normal 2.0-7.7 [facility] Comment on above: Performed By: #### L 100.0100, L500.2500 #### [facility] [address] [place], [address] Basophils/100 WBC (Bld) 0.5 % Normal 0-1 [facility] Comment on above: Performed By: #### L 100.0100, L500.2500 #### [facility] [address] [place], [address] Eosinophils/100 WBC (Bld) 1.9 % Normal 0-5 [facility] Comment on above: Performed By: #### L 100.0100, L500.2500 #### [facility] [address] [place], [address] Erythrocyte distribution width (RBC) [Ratio] 12.6 % Normal 11.6-14.6 [facility] Comment on above: Performed By: #### L 100.0100, L500.2500 #### [facility] [address] [place], [address] Hematocrit (Bld) [Volume fraction] 35.9 % Low 37-47 [facility] Comment on above: Performed By: #### L 100.0100, L500.2500 #### [facility] [address] [place], [address] Hemoglobin (Bld) [Mass/Vol] 12.1 g/dL Normal 12.0-15.0 [facility] Comment on above: Performed By: #### L 100.0100, L500.2500 #### [facility] [address] [place], [address] IG% 0.300 Normal 0.0-0.9 [facility] Comment on above: Result Comment: IG% - Immature Granulocytes (promyelocytes, myelocytes and metamyelocytes) > 1% indicates that a LEFT SHIFT is Present. Performed By: #### L 100.0100, L500.2500 #### [facility] [address] [place], [address] Lymphocytes/100 WBC (Bld) 22.7 % Normal 19-41 [facility] Comment on above: Performed By: #### L 100.0100, L500.2500 #### [facility] [address] [place], [address] MCH (RBC) [Entitic mass] 32.4 pg High 27.0-32.0 [facility] Comment on above: Performed By: #### L 100.0100, L500.2500 #### [facility] [address] [place], [address] MCHC (RBC) [Mass/Vol] 33.7 g/dL Normal 32-[address] [facility] Comment on above: Performed By: #### L 100.0100, L500.2500 #### [facility] [address] [place], [address] MCV (RBC) [Entitic vol] 96.0 fL Normal 81-99 [facility] Comment on above: Performed By: #### L 100.0100, L500.2500 #### [facility] [address] [place], [address] Monocytes/100 WBC (Bld) 10.2 % High 0-10 [facility] Comment on above: Performed By: #### L 100.0100, L500.2500 #### [facility] [address] [place], [address] Neutrophils/100 WBC (Bld) 64.4 % Normal 47-70 [facility] Comment on above: Performed By: #### L 100.0100, L500.2500 #### [facility] [address] [place], [address] Nucleated RBC (Bld) [#/Vol] 0 10*3/uL Normal 0-5 [facility] Comment on above: Performed By: #### L 100.0100, L500.2500 #### [facility] [address] [place], [address] Platelet mean volume (Bld) [Entitic vol] 10.0 fL Normal 6.2-12.0 [facility] Comment on above: Performed By: #### L 100.0100, L500.2500 #### [facility] [address] [place], [address] Platelets (Bld) [#/Vol] 120 10*3/uL Low 150-450 [facility] Comment on above: Performed By: #### L 100.0100, L500.2500 #### [facility] [address] [place], [address] RBC (Bld) [#/Vol] 3.74 10*6/uL Low 4.2-5.4 [facility] Comment on above: Performed By: #### L 100.0100, L500.2500 #### [facility] [address] [place], [address] RDW SD 43.6 fl Normal 35.1-43.9 [facility] Comment on above: Performed By: #### L 100.0100, L500.2500 #### [facility] [address] [place], [address] WBC (Bld) [#/Vol] 6.2 10*3/uL Normal 4.4-11.0 [facility] Comment on above: Performed By: #### L 100.0100, L500.2500 #### [facility] [address] [place], [address] Carbon dioxide, total [Moles /volume] in Central venous bloodOrdered By: Loren Aster on 03-31-2025 CO2 [Moles/Vol] 21.9 mmol/L 21.0-32.0 [facility] Chloride assayOrdered By: Na na Aster on 03-31-2025 Chloride [Moles/Vol] 108 mmol/L 98-[address] [facility] Discharge Instructionon 03-16 Discharge Instruction [facility] Medical Records Department [address] [place] [address] Instructions for Home/Discharge Instructions 03/31/25 1034 MR#: [id number] Acct: [id number] Name: GUMARO CARRASQUILLO Rep #: [id number] : 1955 70 From: Eleazar Gonzalez MD PCP: Dr. Khushboo Dudley MD Status:ADM IN Discharge Instructions Diet Discharge Diet: Low fat / Low cholesterol and 2000 mg Sodium Diet DC O2, CPAP, BIPAP needs Home O2 Discharge instructions: No Dressing / Incision Discharge Activity: Return to Normal Activity Weight Bearing Status: Weight bearing as tolerated Dressing / Incision Call your doctor if you observe: Fever of 101 or Higher, Coldness, Increased Pain, Numbness or Tingling, Change in Color, Inability to urinate, Inability to have a bowel movement, Shortness of breath, Dizziness, Fainting spells, Swelling in the ankles, Chest pain, Prolonged hiccupping, Increased palpitations (irregular heartbeat) and Calf discomfort Follow Up Care When: IN 2 WEEKS Test Results: Test results from this visit will be discussed in further detail at your follow-up appointment, if applicable. Discharge Plan Admission Admit Date/Time: 03/28/25 17:41 Primary Reason for Your Visit: Atypical chest pain. Cardiac cath normal. Attending Provider: Eleazar Gonzalez Primary Care Provider: Khushboo Dudley Consulting Providers: Stoney Veronica; Loren De Souza Discharge Orders/Prescriptions Prescriptions: New atorvastatin 40 mg Tablet 40 mg PO QHS 30 Days Qty: 30 3RF nitroglycerin 0.4 mg Tablet, Sublingual 0.4 mg sublingual Q5M PRN (Reason: Cardiac/Chest Pain) 30 Days Qty: 30 0RF aspirin 81 mg Tablet,Chewable 81 mg PO BREAKFAST 30 Days Qty: 30 3RF losartan 100 mg Tablet 100 mg PO DAILY 30 Days Qty: 30 2RF atenolol 50 mg Tablet 25 mg PO DAILY 30 Days Qty: 30 0RF Rx Instructions: Hold for SBP less than 130 mmHg Continued triamcinolone acetonide 0.5 % cream 1 applic topical DAILY PRN PRN (Reason: ECZEMA) Premarin 0.625 mg/gram cream 0.625 mg vaginal .Q3DAYS levothyroxine 75 MCG tablet 75 mcg PO DAILY calcium carbonate 600 MG tablet 600 mg PO DAILY ondansetron HCl 4 mg tablet 4 mg PO Q8H PRN PRN (Reason: nausea and vomiting) multivit with min-folic acid [One Daily Womens 50 Plus] 0.4 mg tablet 1 tab PO DAILY Colace Clear 50 mg capsule 100 mg PO PRN Discontinued atenolol 50 MG tablet 50 mg PO BID losartan 50 mg tablet 50 mg PO DAILY Referrals / Follow Up: Stoney Veronica MD [Med Staff - Active Staff] - Within 1 Month Khushboo Dudley MD [Primary Care Provider] - Within 2 Weeks Disposition Disposition (needs filled in before D/C Order can be placed): Home, Self Care 03/31/25 1039 Eleazar Gonzalez MD CC: Dr. Stoney Veronica MD; Dr. Khushboo Dudley MD; Dr. Loren De Souza MD Signed Normal [facility] Eosinophil percentageOrdered By: Loren De Souza on 03-31-2025 Eosinophils/100 WBC (Bld) 1.9 % 0-5 [facility] Erythrocyte distribution wid th ratioOrdered By: Loren De Souza on 03-31-2025 Erythrocyte distribution width (RBC) [Ratio] 12.6 % 11.6-14.6 [facility] Erythrocyte distribution wid th standard deviationOrdered By: Loren De Souza on 03-31-2025 Erythrocyte distribution width (RBC) [Ratio] 43.6 fl 35.1-43.9 [facility] Glomerular filtration rate ( GFR) estimation/1.73 sq m using serum, plasma, or whole bOrdered By: Loren De Souza on 03-31-2025 GFR/1.73 sq M.predicted among non-blacks MDRD (S/P/Bld) [Vol rate/Area] 85 mL/min/{1.73_m2} >60 [facility] Comment on above: mL/min/1.73m2 CKD-EP I Creatinine Equation (2020) Hematocrit Auto (Bld) [Volum e fraction]Ordered By: Loren De Souza on 03-31-2025 Hematocrit (Bld) [Volume fraction] 35.9 % Low 37-47 [facility] Hemoglobin measurementOrdere d By: Loren De Souza on 03-31-2025 Hemoglobin (Bld) [Mass/Vol] 12.1 g/dL 12.0-15.0 [facility] Immature granulocytes/100 WB C Auto (Bld)Ordered By: Loren De Souza 03-31-2025 Immature granulocytes/100 WBC (Bld) 0.300 % 0.0-0.9 [facility] Comment on above: IG% - Immature Granu locytes (promyelocytes, myelocytes and metamyelocytes) > 1% indicates that a LEFT SHIFT is Present. MCV (mean corpuscular volume ) determinationOrdered By: Loren De Souza 03-31-2025 MCV (RBC) [Entitic vol] 96.0 fL 81-99 [facility] Mean corpuscular hemoglobin (MCH) determinationOrdered By: Loren De Souza 03-31-2025 MCH (RBC) [Entitic mass] 32.4 pg High 27.0-32.0 [facility] Mean corpuscular hemoglobin concentration (MCHC) determinationOrdered By: Loren De Souza 03-31-2025 MCHC (RBC) [Mass/Vol] 33.7 g/dL 32-[address] [facility] Mean platelet volume determi nationOrdered By: Loren De Souza 03-31-2025 Platelet mean volume (Bld) [Entitic vol] 10.0 fL 6.2-12.0 [facility] Monocyte percentageOrdered B y: Loren De Souza on 03-31-2025 Monocytes/100 WBC (Bld) 10.2 % High 0-10 [facility] Neutrophil percentageOrdered By: Loren De Souza on 03-31-2025 Neutrophils/100 WBC (Bld) 64.4 % 47-70 [facility] Nucleated red blood cell per centageOrdered By: Loren De Souza on 03-31-2025 Nucleated RBC/100 WBC (Bld) [Ratio] 0 % 0-5 [facility] Platelet countOrdered By: Na na Aster on 03-31-2025 Platelets (Bld) [#/Vol] 120 10*3/uL Low 150-450 [facility] Potassium measurement (mass/ volume)Ordered By: Loren De Souza on 03-31-2025 Potassium (Unsp spec) [Mass/Vol] 3.8 mmol/L 3.3-5.1 [facility] RBC Auto (Bld) [#/Vol]Ordere d By: Loren De Souza on 03-31-2025 RBC (Bld) [#/Vol] 3.74 10*6/uL Low 4.2-5.4 [facility] Serum creatinine measurement (mass/volume)Ordered By: Loren De Souza on 03-31-2025 Creatinine [Mass/Vol] 0.75 mg/dL 0.70-1.[address] [facility] Serum glucose measurement (m ass/volume)Ordered By: Loren De Souza on 03-31-2025 Glucose [Mass/Vol] 98 mg/dL 70-99 [facility] Serum or plasma calcium hema urement (mass/volume)Ordered By: Loren De Souza on 03-31-2025 Calcium [Mass/Vol] 8.7 mg/dL 7.6-11.0 [facility] Serum or plasma urea nitroge n measurement (mass/volume)Ordered By: Loren De Souza on 03-31-2025 Urea nitrogen [Mass/Vol] 12 mg/dL 4-19 [facility] Sodium levelOrdered By: Loren De Souza on 03-31-2025 Sodium [Moles/Vol] 141 mmol/L 133-145 [facility] White blood cell (WBC) count Ordered By: Loren De Souza on 03-31-2025 WBC (Bld) [#/Vol] 6.2 10*3/uL 4.4-11.0 [facility] 12 Lead EKGon 03-30-2025 12 Lead EKG [facility] Cardi[facility] Services [address] [facility] [place] [address] 12 Lead EKG 03/31/25 0520 MR#: [id number] Acct: [id number] Name: GUMARO CARRASQUILLO Rep #: [id number] : 1955 70 From: Stoney Veronica MD Attending Dr: Dr. Eleazar Gonzalez MD Status: DIS IN Ordering Dr: Johana Neff DO Date: 03/30/25 Location: U Sex: F C Admitted: 03/28/25 Test Reason : HEART CATH Blood Pressure : */* mmHG Vent. Rate : 56 BPM Atrial Rate : 56 BPM P-R Int : 188 ms QRS Dur : 142 ms QT Int : 446 ms P-R-T Axes : 53 -41 92 degrees QTcB Int : 430 ms Sinus bradycardia Left axis deviation Left bundle branch block Abnormal ECG When compared with ECG of 30-Mar-2025 05:55, MANUAL COMPARISON REQUIRED DATA IS UNCONFIRMED Confirmed by GLENYS GARCIA, STONEY ([id number]), book editor ANTHONY HADLEY ([id number]) on 04/01/2025 8:25:56 AM Referred By: GURU Confirmed By: STONEY VERONICA MD 04/01/25 0826 Date Stoney Veronica MD CC: Dr. Khushboo Dudley MD; Dr. Johana Neff DO; Dr. Eleazar Gonzalez MD Signed Normal [facility] Basic Metabolic Profile (BMP )on 03-30-2025 BUN/CRE 15.0 RATIO Normal - [facility] Comment on above: Performed By: #### L 501.9187, L100.0100, L506.0400, L500.4050, L501.9520 #### [facility] [address] [place], [address] Calcium [Mass/Vol] 8.8 mg/dL Normal 7.6-11.0 [facility] Comment on above: Performed By: #### L 501.9187, L100.0100, L506.0400, L500.4050, L501.9520 #### [facility] [address] [place], [address] Chloride [Moles/Vol] 110 mmol/L High 98-[address] [facility] Comment on above: Performed By: #### L 501.9187, L100.0100, L506.0400, L500.4050, L501.9520 #### [facility] [address] [place], [address] CO2 [Moles/Vol] 22.8 mmol/L Normal 21.0-32.0 [facility] Comment on above: Performed By: #### L 501.9187, L100.0100, L506.0400, L500.4050, L501.9520 #### [facility] [address] [place], [address] Creatinine [Mass/Vol] 0.74 mg/dL Normal 0.70-1.[address] [facility] Comment on above: Performed By: #### L 501.9187, L100.0100, L506.0400, L500.4050, L501.9520 #### [facility] [address] [place], [address] ECRCL 76.00 ml/min Normal 50-250 [facility] Comment on above: Performed By: #### L 501.9187, L100.0100, L506.0400, L500.4050, L501.9520 #### [facility] [address] [place], [address] GAP 9 Normal 5-15 [facility] Comment on above: Performed By: #### L 501.9187, L100.0100, L506.0400, L500.4050, L501.9520 #### [facility] [address] [place], [address] GFR/1.73 sq M.predicted among non-blacks MDRD (S/P/Bld) [Vol rate/Area] 87 mL/min/{1.73_m2} Normal >60 [facility] Comment on above: Result Comment: mL/m in/1.73m2 CKD-EPI Creatinine Equation (2020) Performed By: #### L 501.9187, L100.0100, L506.0400, L500.4050, L501.9520 #### [facility] [address] [place], [address] Glucose [Mass/Vol] 102 mg/dL High 70-99 [facility] Comment on above: Performed By: #### L 501.9187, L100.0100, L506.0400, L500.4050, L501.9520 #### [facility] [address] [place], [address] Potassium [Moles/Vol] 3.9 mmol/L Normal 3.3-5.[address] [facility] Comment on above: Performed By: #### L 501.9187, L100.0100, L506.0400, L500.4050, L501.9520 #### [facility] [address] [place], [address] Sodium [Moles/Vol] 142 mmol/L Normal 133-145 [facility] Comment on above: Performed By: #### L 501.9187, L100.0100, L506.0400, L500.4050, L501.9520 #### [facility] [address] [place], [address] Urea nitrogen [Mass/Vol] 11 mg/dL Normal 4-19 [facility] Comment on above: Performed By: #### L 501.9187, L100.0100, L506.0400, L500.4050, L501.9520 #### [facility] [address] [place], [address] CBC W/Diff, Automatedon -10 20-2024 Absolute Lymph 1.53 X10 3/uL Normal 0.83-4.51 [facility] Comment on above: Performed By: #### L 501.9187, L100.0100, L506.0400, L500.4050, L501.9520 #### [facility] [address] [place], [address] Absolute Neut 3.6 X10 3/uL Normal 2.0-7.7 [facility] Comment on above: Performed By: #### L 501.9187, L100.0100, L506.0400, L500.4050, L501.9520 #### [facility] [address] [place], [address] Basophils/100 WBC (Bld) 0.3 % Normal 0-1 [facility] Comment on above: Performed By: #### L 501.9187, L100.0100, L506.0400, L500.4050, L501.9520 #### [facility] [address] [place], [address] Eosinophils/100 WBC (Bld) 2.0 % Normal 0-5 [facility] Comment on above: Performed By: #### L 501.9187, L100.0100, L506.0400, L500.4050, L501.9520 #### [facility] [address] [place], [address] Erythrocyte distribution width (RBC) [Ratio] 12.7 % Normal 11.6-14.6 [facility] Comment on above: Performed By: #### L 501.9187, L100.0100, L506.0400, L500.4050, L501.9520 #### [facility] [address] [place], [address] Hematocrit (Bld) [Volume fraction] 37.3 % Normal 37-47 [facility] Comment on above: Performed By: #### L 501.9187, L100.0100, L506.0400, L500.4050, L501.9520 #### [facility] [address] [place], [address] Hemoglobin (Bld) [Mass/Vol] 12.8 g/dL Normal 12.0-15.0 [facility] Comment on above: Performed By: #### L 501.9187, L100.0100, L506.0400, L500.4050, L501.9520 #### [facility] [address] [place], [address] IG% 0.500 Normal 0.0-0.9 [facility] Comment on above: Result Comment: IG% - Immature Granulocytes (promyelocytes, myelocytes and metamyelocytes) > 1% indicates that a LEFT SHIFT is Present. Performed By: #### L 501.9187, L100.0100, L506.0400, L500.4050, L501.9520 #### [facility] [address] [place], [address] Lymphocytes/100 WBC (Bld) 25.9 % Normal 19-41 [facility] Comment on above: Performed By: #### L 501.9187, L100.0100, L506.0400, L500.4050, L501.9520 #### [facility] [address] [place], [address] MCH (RBC) [Entitic mass] 32.7 pg High 27.0-32.0 [facility] Comment on above: Performed By: #### L 501.9187, L100.0100, L506.0400, L500.4050, L501.9520 #### [facility] [address] [place], [address] MCHC (RBC) [Mass/Vol] 34.3 g/dL Normal 32-[address] [facility] Comment on above: Performed By: #### L 501.9187, L100.0100, L506.0400, L500.4050, L501.9520 #### [facility] [address] [place], [address] MCV (RBC) [Entitic vol] 95.4 fL Normal 81-99 [facility] Comment on above: Performed By: #### L 501.9187, L100.0100, L506.0400, L500.4050, L501.9520 #### [facility] [address] [place], [address] Monocytes/100 WBC (Bld) 10.3 % High 0-10 [facility] Comment on above: Performed By: #### L 501.9187, L100.0100, L506.0400, L500.4050, L501.9520 #### [facility] [address] [place], [address] Neutrophils/100 WBC (Bld) 61.0 % Normal 47-70 [facility] Comment on above: Performed By: #### L 501.9187, L100.0100, L506.0400, L500.4050, L501.9520 #### [facility] [address] [place], [address] Nucleated RBC (Bld) [#/Vol] 0 10*3/uL Normal 0-5 [facility] Comment on above: Performed By: #### L 501.9187, L100.0100, L506.0400, L500.4050, L501.9520 #### [facility] [address] [place], [address] Platelet mean volume (Bld) [Entitic vol] 10.1 fL Normal 6.2-12.0 [facility] Comment on above: Performed By: #### L 501.9187, L100.0100, L506.0400, L500.4050, L501.9520 #### [facility] [address] [place], [address] Platelets (Bld) [#/Vol] 125 10*3/uL Low 150-450 [facility] Comment on above: Performed By: #### L 501.9187, L100.0100, L506.0400, L500.4050, L501.9520 #### [facility] [address] [place], [address] RBC (Bld) [#/Vol] 3.91 10*6/uL Low 4.2-5.4 [facility] Comment on above: Performed By: #### L 501.9187, L100.0100, L506.0400, L500.4050, L501.9520 #### [facility] [address] [place], [address] RDW SD 43.7 fl Normal 35.1-43.9 [facility] Comment on above: Performed By: #### L 501.9187, L100.0100, L506.0400, L500.4050, L501.9520 #### [facility] [address] [place], [address] WBC (Bld) [#/Vol] 5.9 10*3/uL Normal 4.4-11.0 [facility] Comment on above: Performed By: #### L 501.9187, L100.0100, L506.0400, L500.4050, L501.9520 #### [facility] [address] [place], [address] Basic Metabolic Profile (BMP )on 03-29-2025 BUN/CRE 16.2 RATIO Normal 10-20 [facility] Comment on above: Performed By: #### L 100.0100, L500.2500 ####[facility] [address] [place], [address] Calcium [Mass/Vol] 8.6 mg/dL Normal 7.6-11.0 [facility] Comment on above: Performed By: #### L 100.0100, L500.2500 ####[facility] [address] [place], [address] Chloride [Moles/Vol] 109 mmol/L High 98-[address] [facility] Comment on above: Performed By: #### L 100.0100, L500.2500 ####[facility] [address] [place], [address] CO2 [Moles/Vol] 21.5 mmol/L Normal 21.0-32.0 [facility] Comment on above: Performed By: #### L 100.0100, L500.2500 ####[facility] [address] [place], [address] Creatinine [Mass/Vol] 0.69 mg/dL Low 0.70-1.[address] [facility] Comment on above: Performed By: #### L 100.0100, L500.2500 ####[facility] [address] [place], [address] ECRCL 76.00 ml/min Normal 50-250 [facility] Comment on above: Performed By: #### L 100.0100, L500.2500 ####[facility] [address] [place], [address] GAP 9 Normal 5-15 [facility] Comment on above: Performed By: #### L 100.0100, L500.2500 ####[facility] [address] [place], [address] GFR/1.73 sq M.predicted among non-blacks MDRD (S/P/Bld) [Vol rate/Area] 93 mL/min/{1.73_m2} Normal >60 [facility] Comment on above: Result Comment: mL/m in/1.73m2 CKD-EPI Creatinine Equation (2020) Performed By: #### L 100.0100, L500.2500 ####[facility] [address] [place], [address] Glucose [Mass/Vol] 98 mg/dL Normal 70-99 [facility] Comment on above: Performed By: #### L 100.0100, L500.2500 ####[facility] [address] [place], [address] Potassium [Moles/Vol] 3.8 mmol/L Normal 3.3-5.[address] [facility] Comment on above: Performed By: #### L 100.0100, L500.2500 ####[facility] [address] [place], [address] Sodium [Moles/Vol] 140 mmol/L Normal 133-145 [facility] Comment on above: Performed By: #### L 100.0100, L500.2500 ####[facility] [address] [place], [address] Urea nitrogen [Mass/Vol] 11 mg/dL Normal 4-19 [facility] Comment on above: Performed By: #### L 100.0100, L500.2500 ####[facility] [address] [place], [address] CBC W/Diff, Automatedon 03-16 Absolute Lymph 1.20 X10 3/uL Normal 0.83-4.51 [facility] Comment on above: Performed By: #### L 100.0100, L500.2500 #### [facility] [address] [place], [address] Absolute Neut 4.4 X10 3/uL Normal 2.0-7.7 [facility] Comment on above: Performed By: #### L 100.0100, L500.2500 #### [facility] [address] [place], [address] Basophils/100 WBC (Bld) 0.3 % Normal 0-1 [facility] Comment on above: Performed By: #### L 100.0100, L500.2500 #### [facility] [address] [place], [address] Eosinophils/100 WBC (Bld) 1.1 % Normal 0-5 [facility] Comment on above: Performed By: #### L 100.0100, L500.2500 #### [facility] [address] [place], [address] Erythrocyte distribution width (RBC) [Ratio] 12.7 % Normal 11.6-14.6 [facility] Comment on above: Performed By: #### L 100.0100, L500.2500 #### [facility] [address] [place], [address] Hematocrit (Bld) [Volume fraction] 33.9 % Low 37-47 [facility] Comment on above: Performed By: #### L 100.0100, L500.2500 #### [facility] [address] [place], [address] Hemoglobin (Bld) [Mass/Vol] 11.5 g/dL Low 12.0-15.0 [facility] Comment on above: Performed By: #### L 100.0100, L500.2500 #### [facility] [address] [place], [address] IG% 0.500 Normal 0.0-0.9 [facility] Comment on above: Result Comment: IG% - Immature Granulocytes (promyelocytes, myelocytes and metamyelocytes) > 1% indicates that a LEFT SHIFT is Present. Performed By: #### L 100.0100, L500.2500 #### [facility] [address] [place], [address] Lymphocytes/100 WBC (Bld) 18.9 % Low 19-41 [facility] Comment on above: Performed By: #### L 100.0100, L500.2500 #### [facility] [address] [place], [address] MCH (RBC) [Entitic mass] 32.4 pg High 27.0-32.0 [facility] Comment on above: Performed By: #### L 100.0100, L500.2500 #### [facility] [address] [place], [address] MCHC (RBC) [Mass/Vol] 33.9 g/dL Normal 32-[address] [facility] Comment on above: Performed By: #### L 100.0100, L500.2500 #### [facility] [address] [place], [address] MCV (RBC) [Entitic vol] 95.5 fL Normal 81-99 [facility] Comment on above: Performed By: #### L 100.0100, L500.2500 #### [facility] [address] [place], [address] Monocytes/100 WBC (Bld) 9.4 % Normal 0-10 [facility] Comment on above: Performed By: #### L 100.0100, L500.2500 #### [facility] [address] [place], [address] Neutrophils/100 WBC (Bld) 69.8 % Normal 47-70 [facility] Comment on above: Performed By: #### L 100.0100, L500.2500 #### [facility] [address] [place], [address] Nucleated RBC (Bld) [#/Vol] 0 10*3/uL Normal 0-5 [facility] Comment on above: Performed By: #### L 100.0100, L500.2500 #### [facility] [address] [place], [address] Platelet mean volume (Bld) [Entitic vol] 10.1 fL Normal 6.2-12.0 [facility] Comment on above: Performed By: #### L 100.0100, L500.2500 #### [facility] [address] [place], [address] Platelets (Bld) [#/Vol] 116 10*3/uL Low 150-450 [facility] Comment on above: Performed By: #### L 100.0100, L500.2500 #### [facility] [address] [place], [address] RBC (Bld) [#/Vol] 3.55 10*6/uL Low 4.2-5.4 [facility] Comment on above: Performed By: #### L 100.0100, L500.2500 #### [facility] [address] [place], [address] RDW SD 44.3 fl High 35.1-43.9 [facility] Comment on above: Performed By: #### L 100.0100, L500.2500 #### [facility] [address] [place], [address] WBC (Bld) [#/Vol] 6.4 10*3/uL Normal 4.4-11.0 [facility] Comment on above: Performed By: #### L 100.0100, L500.2500 #### [facility] [address] [place], [address] Consultation - Cardiologyon 03-29-2025 Consultation - Cardiology [facility] Medical Records Department [address] [place] [place] [address] Consultation - Cardiology 03/29/25 1017 MR#: [id number] Acct: [id number] Name: GUMARO CARRASQUILLO Rep #: [id number] : 1955 70 From: Jimi Flores MD PCP: Dr. Khushboo Dudley MD Status:ADM IN Location: [place] [address] Assessment Plan Assessment/Plan (1) CAD (coronary artery disease): (2) Chest pain: (3) Abnormal stress test: PLAN: Plan 1. Chest pain in the setting of an abnormal stress test - reversible defect in the anterior myocardium.. The plan will be to proceed with a left heart catheterization given her symptoms. If she has further episodes of chest pain we will plan for possible left heart cath tomorrow. Echocardiogram has been ordered results are pending. Will Trend platelets they appear to be trending downwards, if they trend to less than 50,000 we will have to hold off left heart cath. 2. Hypertension 3. Hypothyroidism #4 thrombocytopenia HPI Consult Data Date of Consult: 03/29/25 HPI Narrative Reason for Consultation: chest pain HPI Narrative: GUMARO CARRASQUILLO, is a 70 F who presents to the ER with chest pain. She reports that she has had chest pains for couple months on and off about 5/10 in intensity substernal nonradiating for which she was ordered a stress test. Her stress test was done which showed ischemia in LAD territory, and the plan was an elective heart catheterization. However she woke up yesterday morning with chest pain reports it was again substernal 5/10 in intensity lasted a few minutes. And so she came to the ER. She has since had a few more brief episodes however no chest pains at this time. Echocardiogram is pending. She denies fever, chills, orthopnea, PND, loss of consciousness, diarrhea, constipation. Her high-sensitivity troponins have been within normal limits. [facility] Medical History (Updated 03/28/25 @ 23:[address] Davey Bosch DO) Diverticulosis Chest pain Vaginal vault prolapse Cystocele, midline Wears glasses Bladder disease Anemia Restless legs History of diverticulosis History of IBS Heartburn Former smoker History of edema History of stress test Fibromyalgia Diverticulosis HTN (hypertension) Hypothyroidism Diarrhea Epigastric pain Home Medications ???Medication ???Instructions ???Recorded ???Last Taken ???Type atenolol 50 mg tablet 50 mg PO BID hypertension 01/04/18 03/28/25 07:00 History 50 mg calcium carbonate 600 mg PO DAILY supplement 8 Unknown History levothyroxine 75 mcg tablet 75 mcg PO DAILY hypothyroid 03/28/25 07:00 History 75 mcg conjugated estrogens 0.625 mg/gram 0.625 mg vaginal .Q3DAYS prevent ion 06/28/22 Unknown History vaginal cream (Premarin) triamcinolone acetonide 0.5 % 1 applic topical DAILY PRN PRN Unknown History topical cream ECZEMA docusate sodium 50 mg capsule 100 mg PO PRN constipation 5 Unknown History (Colace Clear) losartan 50 mg tablet 50 mg PO DAILY hypertension 03/28/25 08:00 History 50 mg multivitamin with minerals-folic 1 tab PO DAILY supplement 03/28/25 03/28/25 07:00 History acid 0.4 mg tablet (One Daily 1 TAB Womens 50 Plus) ondansetron HCl 4 mg tablet 4 mg PO Q8H PRN PRN nausea and Unknown History vomiting Allergy/AdvReac Type Severity Reaction Status Date / Time cefaclor (From [facility]) Allergy Hives Verified 03/28/25 14:25 latex Allergy Rash Verified 03/28/25 14:25 Family History Mother Cancer lung Diabetes Colon polyps Father Hypertension Brother Diabetes Colon polyps Surgical History History of bladder suspension procedure History of esophagogastroduodenoscopy (EGD) Status post hysteroscopic myomectomy Infected cyst of Bartholin's gland duct Status post lymph node biopsy S/P cataract extraction S/P hysterectomy S/P rotator cuff repair H/O section S/P colonoscopy S/P laparoscopic cholecystectomy Status post dilation and curettage Social History Smoking Status: Former smoker Physical Exam Const Constitutional Narrative: General???alert oriented HEENT- normal extraocular movements Neck supple no JVD Cardiovascular- normal S1-S2, no murmurs Pulmonary- clear to auscultation bilaterally Abdomen- soft to palpation, normal sounds Extremities- no edema Musculoskeletal- no tenderness no swelling Neurological -alert oriented Psych -normal affect Risk Stratification Risk Stratification Applicable: No Objective Data Vital Signs: Vital Signs Temp Pulse Resp BP Pulse Ox O2 Del Method 99.0 F 57 L 16 133/70 H 98 Room Air 03/29/25 08:09 03/29/25 08:09 (more content not included)... Normal [facility] Echo Completeon 03-29-2025 Echo Complete [facility] [address] [place] [address] Echo Complete 03/29/25 0856 MR#: [id number] Acct: [id number] Name: GUMARO CARRASQUILLO Rep #: [id number] : 1955 70 From: Jimi Flores MD Attending Dr: Dr. Loren De Souza MD Status: AD M IN Ordering Dr: Loren De Souza MD Date: 03/29/25 Location: U Sex: F C Admitted: 03/28/25 Reason For Study Reason For Study: Chest pain Procedure This was a 2D Doppler, Color Flow transthoracic echocardiogram. Exam performed portable in patient room. Left Ventricle Normal left ventricle. Normal wall thickness. Left ventricular systolic function is lower limits of normal. The LV ejection fraction is 50 %. possible Mild hypokinesis of the apical anterior septal wall. Right Ventricle Normal right ventricle. Normal systolic function. Atria The left atrium is mildly dilated. Normal right atrium. No intra atrial septal defect. Mitral Valve There is no stenosis. Mild-Moderate (1-2+) mitral valve insufficiency. Tricuspid Valve Normal tricuspid valve. Mild to moderate (1-2+) tricuspid valve insufficiency. Pulmonary artery systolic pressure is <35 mmHg. Aortic Valve There is no aortic stenosis. Trivial aortic valve insufficiency. Pulmonic Valve Trivial eccentric pulmonic valve insufficiency. Great Vessels The aortic root is mildly dilated at 3.8 cm. Pericardium/Pleural No pericardial effusion. MMode/2D Measurements Calculations LVIDd: 5.1 cm IVSd: 1.1 cm Ao root diam: 3.8 cm LVIDs: 3.3 cm LVPWd: 0.97 cm RVDd: 4.1 cm FS: 35.0 % LAV(MOD-bp): 79.3 ml LVAd ap4: 28.9 cm2 LVAd ap2: 30.1 cm2 LAV(MOD-bp) Indexed: 38.3 ml/m2 LVLd ap4: 7.9 cm LVLd ap2: 7.7 cm LAV(MOD-sp2): 68.6 ml EDV(MOD-sp4): 88.7 ml EDV(MOD-sp2): 103.2 ml LAV(MOD-sp4): 76.8 ml EDV(sp4-el): 89.2 ml EDV(sp2-el): 99.6 ml LVAs ap4: 18.5 cm2 LVAs ap2: 18.8 cm2 LVLs ap4: 6.6 cm LVLs ap2: 7.0 cm ESV(MOD-sp4): 44.2 ml ESV(MOD-sp2): 43.1 ml ESV(sp4-el): 43.6 ml ESV(sp2-el): 42.9 ml EF(MOD-sp4): 50.1 % EF(MOD-sp2): 58.3 % EF(sp4-el): 51.2 % SV(MOD-sp4): 44.5 ml SV(MOD-sp2): 60.1 ml SV(sp4-el): 45.7 ml SI(MOD-sp4): 21.5 ml/m2 SI(MOD-sp2): 29.1 ml/m2 LA A4 area: 25.4 cm2 LA dimension(2D): 3.8 cm RA A4 area: 20.5 cm2 TAPSE: 2.3 cm Time Measurements MV dec time: 0.20 sec Doppler Measurements Calculations MV E max arvind: 87.0 cm/sec Lat Peak E' Arvind: 9.1 cm/sec Med Peak E' Arvind: 6.9 cm/sec MV A max arvind: 63.8 cm/sec E/E' lat: 9.6 E/E' med: 12.5 MV E/A: 1.4 Ao V2 max: 183.2 cm/sec LV V1 max: 123.7 cm/sec MV dec slope: 440.8 cm/sec2 Ao max P.4 mmHg LV V1 max P.1 mmHg Ao V2 mean: 130.2 cm/sec LV V1 mean P.9 mmHg Ao mean P.4 mmHg LV V1 mean: 93.4 cm/sec Ao V2 VTI: 42.0 cm LV V1 VTI: 31.2 cm AV (velocity ratio): 0.74 PA V2 max: 108.4 cm/sec TR max arvind: 225.4 cm/sec TR max P.3 mmHg ECHO/Echo Complete Interpretation Summary The LV ejection fraction is 50 %. Left ventricular systolic function is lower limits of normal. possible Mild hypokinesis of the apical anterior septal wall The left atrium is mildly dilated The aortic root is mildly dilated at 3.8 cm Mild to moderate (1-2+) tricuspid valve insufficiency. Mild-Moderate (1-2+) mitral valve insufficiency. Ordering Physician: Loren De Souza Referring Physician: Khushboo Dudley Performed By: Savannah Noble RDCS 03/29/25 1210 Date Jimi Flores MD CC: Dr. Khushboo Dudley MD; Dr. Loren De Souza MD Date Dictated: 03/29/25 0856 Date Transcribed: 03/29/25 1210 Licensed Acupuncturist: Jesús [facility] Echocardiogram study reportO rdered By: Jimi Flores on 03-29-2025 Study report [facility] [place] [address] Echo Complete 03/29/25 0856 MR#: [id number] Acct: [id number] Name: GUMARO CARRASQUILLO Rep #:[id number] : 1955 70 From: Jimi Flores MD Attending Dr: Dr. Loren De Souza MD Status: ADM IN Ordering Dr: Loren De Souza MD Date: 03/29/25 Location: [facility] Sex: F C Admitted: 03/28/25 Reason For Study Reason For Study: Chest pain Procedure This was a 2D Doppler, Color Flow transthoracic echocardiogram. Exam performed portable in patient room. Left Ventricle Normal left ventricle. Normal wall thickness. Left ventricular systolic functionis lower limits of normal. The LV ejection fraction is 50 %. possible Mild hypokinesis of the apical anterior septal wall. Right Ventricle Normal right ventricle. Normal systolic function. Atria The left atrium is mildly dilated. Normal right atrium. No intra atrial septal defect. Mitral Valve There is no stenosis. Mild-Moderate (1-2+) mitral valve insufficiency. Tricuspid Valve Normal tricuspid valve. Mild to moderate (1-2+) tricuspid valve insufficiency. Pulmonary artery systolic pressure is <35 mmHg. Aortic Valve There is no aortic stenosis. Trivial aortic valve insufficiency. Pulmonic Valve Trivial eccentric pulmonic valve insufficiency. Great Vessels The aortic root is mildly dilated at 3.8 cm. Pericardium/Pleural No pericardial effusion. MMode/2D Measurements & Calculations LVIDd: 5.1 cm IVSd: 1.1 cm Ao root diam: 3.8 cm LVIDs: 3.3 cm LVPWd: 0.97 cm RVDd: 4.1 cm FS: 35.0 % LAV(MOD-bp): 79.3 ml LVAd ap4: 28.9 cm2 LVAd ap2: 30.1 cm2 LAV(MOD-bp) Indexed: 38.3 ml/m2 LVLd ap4: 7.9 cm LVLd ap2: 7.7 cm LAV(MOD-sp2): 68.6 ml EDV(MOD-sp4): 88.7 ml EDV(MOD-sp2): 103.2 ml LAV(MOD-sp4): 76.8 ml EDV(sp4-el): 89.2 ml EDV(sp2-el): 99.6 ml LVAs ap4: 18.5 cm2 LVAs ap2: 18.8 cm2 LVLs ap4: 6.6 cm LVLs ap2: 7.0 cm ESV(MOD-sp4): 44.2 ml ESV(MOD-sp2): 43.1 ml ESV(sp4-el): 43.6 ml ESV(sp2-el): 42.9 ml EF(MOD-sp4): 50.1 % EF(MOD-sp2): 58.3 % EF(sp4-el): 51.2 % SV(MOD-sp4): 44.5 ml SV(MOD-sp2): 60.1 ml SV(sp4-el): 45.7 ml SI(MOD-sp4): 21.5 ml/m2 SI(MOD-sp2): 29.1 ml/m2 LA A4 area: 25.4 cm2 LA dimension(2D): 3.8 cm RA A4 area: 20.5 cm2 TAPSE: 2.3 cm Time Measurements MV dec time: 0.20 sec Doppler Measurements & Calculations MV E max arvind: 87.0 cm/sec Lat Peak E' Arvind: 9.1 cm/sec Med Peak E' Arvind: 6.9 cm/sec MV A max arvind: 63.8 cm/sec E/E' lat: 9.6 E/E' med: 12.5 MV E/A: 1.4 Ao V2 max: 183.2 cm/sec LV V1 max: 123.7 cm/sec MV dec slope: 440.8 cm/sec2 Ao max P.4 mmHg LV V1 max P.1 mmHg Ao V2 mean: 130.2 cm/sec LV V1 mean P.9 mmHg Ao mean P.4 mmHg LV V1 mean: 93.4 cm/sec Ao V2 VTI: 42.0 cm LV V1 VTI: 31.2 cm AV (velocity ratio): 0.74 PA V2 max: 108.4 cm/sec TR max arvind: 225.4 cm/sec TR max P.3 mmHg ECHO/Echo Complete Interpretation Summary The LV ejection fraction is 50 %. Left ventricular systolic function is lower limits of normal. possible Mild hypokinesis of the apical anterior septal wall The left atrium is mildly dilated The aortic root is mildly dilated at 3.8 cm Mild to moderate (1-2+) tricuspid valve insufficiency. Mild-Moderate (1-2+) mitral valve insufficiency. Ordering Physician: Loren De Souza Referring Physician: Khushboo Dudley Performed By: Savannah Noble RDCS 03/29/25 1210 Date _ Jimi Flores MD CC: Dr. Khushboo Dudley MD; Dr. Loren De Souza MD ~ Date Dictated: 03/29/25 0856 Date Transcribed: 03/29/25 1210 Licensed Acupuncturist: Signed [facility] Absolute lymphocyte countOrd ered By: Davey Bosch on 03-28-2025 Lymphocytes Auto (Unsp spec) [#/Vol] 1.09 10*3/uL 0.83-4.51 [facility] Absolute neutrophil countOrd ered By: Davey Bosch on 03-28-2025 Neutrophils (Bld) [#/Vol] 4.8 10*3/uL 2.0-7.7 [facility] Activated partial thrombopla stin time (aPTT) in platelet poor plasma by coagulation aOrdered By: Davey Bosch on 03-28-2025 aPTT Coag (PPP) [Time] 26.6 s 24.1-36.2 [facility] Anion gap in Serum or Plasma Ordered By: Davey Bosch on 03-28-2025 Anion gap [Moles/Vol] 11 mmol/L 5-[address] [facility] Automated lymphocyte count a s percentage of total leukocytesOrdered By: Davey Bosch on 03-28-2025 Lymphocytes/100 WBC Auto (Unsp spec) 16.3 % Low 19- [facility] BUN/creatinine ratioOrdered By: Davey Bosch on 03-28-2025 Urea nitrogen/Creatinine [Mass ratio] 14.6 mg/mg - [facility] Basic Metabolic Profile (BMP )on 03-28-2025 BUN/CRE 14.6 RATIO Normal 08-04 [facility] Comment on above: Performed By: #### L 501.9187, L100.0100, L506.0400, L500.4050, L501.9520 #### [facility] [address] [place], [address] Calcium [Mass/Vol] 8.9 mg/dL Normal 7.6-11.0 [facility] Comment on above: Performed By: #### L 501.9187, L100.0100, L506.0400, L500.4050, L501.9520 #### [facility] [address] [place], [address] Chloride [Moles/Vol] 107 mmol/L Normal 98-[address] [facility] Comment on above: Performed By: #### L 501.9187, L100.0100, L506.0400, L500.4050, L501.9520 #### [facility] [address] [place], [address] CO2 [Moles/Vol] 22.0 mmol/L Normal 21.0-32.0 [facility] Comment on above: Performed By: #### L 501.9187, L100.0100, L506.0400, L500.4050, L501.9520 #### [facility] [address] [place], [address] Creatinine [Mass/Vol] 0.89 mg/dL Normal 0.70-1.[address] [facility] Comment on above: Performed By: #### L 501.9187, L100.0100, L506.0400, L500.4050, L501.9520 #### [facility] [address] [place], [address] ECRCL 68.48 ml/min Normal 50-250 [facility] Comment on above: Performed By: #### L 501.9187, L100.0100, L506.0400, L500.4050, L501.9520 #### [facility] [address] [place], [address] GAP 11 Normal 5-15 [facility] Comment on above: Performed By: #### L 501.9187, L100.0100, L506.0400, L500.4050, L501.9520 #### [facility] [address] [place], [address] GFR/1.73 sq M.predicted among non-blacks MDRD (S/P/Bld) [Vol rate/Area] 69 mL/min/{1.73_m2} Normal >60 [facility] Comment on above: Result Comment: mL/m in/1.73m2 CKD-EPI Creatinine Equation (2020) Performed By: #### L 501.9187, L100.0100, L506.0400, L500.4050, L501.9520 #### [facility] [address] [place], [address] Glucose [Mass/Vol] 122 mg/dL High 70-99 [facility] Comment on above: Performed By: #### L 501.9187, L100.0100, L506.0400, L500.4050, L501.9520 #### [facility] [address] [place], [address] Potassium [Moles/Vol] 3.7 mmol/L Normal 3.3-5.[address] [facility] Comment on above: Performed By: #### L 501.9187, L100.0100, L506.0400, L500.4050, L501.9520 #### [facility] [address] [place], [address] Sodium [Moles/Vol] 140 mmol/L Normal 133-145 [facility] Comment on above: Performed By: #### L 501.9187, L100.0100, L506.0400, L500.4050, L501.9520 #### [facility] [address] [place], [address] Urea nitrogen [Mass/Vol] 13 mg/dL Normal 4-19 [facility] Comment on above: Performed By: #### L 501.9187, L100.0100, L506.0400, L500.4050, L501.9520 #### [facility] [address] [place], [address] Basophil percentageOrdered B y: Davey Bosch on 03-28-2025 Basophils/100 WBC (Bld) 0.4 % 0-1 [facility] CBC W/Diff, Automatedon 03-16 Absolute Lymph 1.09 X10 3/uL Normal 0.83-4.51 [facility] Comment on above: Performed By: #### L 501.9187, L100.0100, L506.0400, L500.4050, L501.9520 #### [facility] [address] [place], [address] Absolute Neut 4.8 X10 3/uL Normal 2.0-7.7 [facility] Comment on above: Performed By: #### L 501.9187, L100.0100, L506.0400, L500.4050, L501.9520 #### [facility] [address] [place], [address] Basophils/100 WBC (Bld) 0.4 % Normal 0-1 [facility] Comment on above: Performed By: #### L 501.9187, L100.0100, L506.0400, L500.4050, L501.9520 #### [facility] [address] [place], [address] Eosinophils/100 WBC (Bld) 0.6 % Normal 0-5 [facility] Comment on above: Performed By: #### L 501.9187, L100.0100, L506.0400, L500.4050, L501.9520 #### [facility] [address] [place], [address] Erythrocyte distribution width (RBC) [Ratio] 12.7 % Normal 11.6-14.6 [facility] Comment on above: Performed By: #### L 501.9187, L100.0100, L506.0400, L500.4050, L501.9520 #### [facility] [address] [place], [address] Hematocrit (Bld) [Volume fraction] 37.2 % Normal 37-47 [facility] Comment on above: Performed By: #### L 501.9187, L100.0100, L506.0400, L500.4050, L501.9520 #### [facility] [address] [place], [address] Hemoglobin (Bld) [Mass/Vol] 12.6 g/dL Normal 12.0-15.0 [facility] Comment on above: Performed By: #### L 501.9187, L100.0100, L506.0400, L500.4050, L501.9520 #### [facility] [address] [place], [address] IG% 0.600 Normal 0.0-0.9 [facility] Comment on above: Result Comment: IG% - Immature Granulocytes (promyelocytes, myelocytes and metamyelocytes) > 1% indicates that a LEFT SHIFT is Present. Performed By: #### L 501.9187, L100.0100, L506.0400, L500.4050, L501.9520 #### [facility] [address] [place], [address] Lymphocytes/100 WBC (Bld) 16.3 % Low 19-41 [facility] Comment on above: Performed By: #### L 501.9187, L100.0100, L506.0400, L500.4050, L501.9520 #### [facility] [address] [place], [address] MCH (RBC) [Entitic mass] 32.6 pg High 27.0-32.0 [facility] Comment on above: Performed By: #### L 501.9187, L100.0100, L506.0400, L500.4050, L501.9520 #### [facility] [address] [place], [address] MCHC (RBC) [Mass/Vol] 33.9 g/dL Normal 32-[address] [facility] Comment on above: Performed By: #### L 501.9187, L100.0100, L506.0400, L500.4050, L501.9520 #### [facility] [address] [place], [address] MCV (RBC) [Entitic vol] 96.4 fL Normal 81-99 [facility] Comment on above: Performed By: #### L 501.9187, L100.0100, L506.0400, L500.4050, L501.9520 #### [facility] [address] [place], [address] Monocytes/100 WBC (Bld) 9.9 % Normal 0-10 [facility] Comment on above: Performed By: #### L 501.9187, L100.0100, L506.0400, L500.4050, L501.9520 #### [facility] [address] [place], [address] Neutrophils/100 WBC (Bld) 72.2 % High 47-70 [facility] Comment on above: Performed By: #### L 501.9187, L100.0100, L506.0400, L500.4050, L501.9520 #### [facility] [address] [place], [address] Nucleated RBC (Bld) [#/Vol] 0 10*3/uL Normal 0-5 [facility] Comment on above: Performed By: #### L 501.9187, L100.0100, L506.0400, L500.4050, L501.9520 #### [facility] [address] [place], [address] Platelet mean volume (Bld) [Entitic vol] 9.7 fL Normal 6.2-12.0 [facility] Comment on above: Performed By: #### L 501.9187, L100.0100, L506.0400, L500.4050, L501.9520 #### [facility] [address] [place], [address] Platelets (Bld) [#/Vol] 123 10*3/uL Low 150-450 [facility] Comment on above: Performed By: #### L 501.9187, L100.0100, L506.0400, L500.4050, L501.9520 #### [facility] [address] [place], [address] RBC (Bld) [#/Vol] 3.86 10*6/uL Low 4.2-5.4 [facility] Comment on above: Performed By: #### L 501.9187, L100.0100, L506.0400, L500.4050, L501.9520 #### [facility] [address] [place], [address] RDW SD 44.6 fl High 35.1-43.9 [facility] Comment on above: Performed By: #### L 501.9187, L100.0100, L506.0400, L500.4050, L501.9520 #### [facility] [address] [place], [address] WBC (Bld) [#/Vol] 6.7 10*3/uL Normal 4.4-11.0 [facility] Comment on above: Performed By: #### L 501.9187, L100.0100, L506.0400, L500.4050, L501.9520 #### [facility] [address] [place], [address] Calculated very low density lipoprotein (VLDL) cholesterol measurementOrdered By: Loren De Souza on 03-28-2025 Calculated very low density lipoprotein (VLDL) cholesterol measurement 11 mg/dL 5-40 [facility] Carbon dioxide, total [Moles /volume] in Central venous bloodOrdered By: Davey Bosch on 03-28-2025 CO2 [Moles/Vol] 22.0 mmol/L 21.0-32.0 [facility] Chest 1 View (Portable)on Chest 1 View (Portable) [facility] Imaging Services [address] [place] [address] Chest 1 View (Portable) MR#: [id number] Acct: [id number] Name: GUMARO CARRASQUILLO Rep #: [id number] : 1955 F 70 From: Jamil Bosch MD PCP: Dr. Khushboo Dudley MD Status: REG ER Study: Chest 1 View (Portable) Date of Exam: 03/28/25 Exam# [id number] Ordering Dr: Davey Bosch DO EXAM: XR Chest, 1 View CLINICAL INDICATION: CHEST PAIN TECHNIQUE: Frontal view of the chest. COMPARISON: No relevant prior studies available. FINDINGS: LUNGS AND PLEURAL SPACES: See below. HEART: Cardiomegaly with mild congestion. MEDIASTINUM: Unremarkable. Normal mediastinal contour. BONES/JOINTS: Unremarkable. No acute fracture. RAD/Chest 1 View (Portable) IMPRESSION: Cardiomegaly with mild congestion. Reading Location: [facility] CC: Dr. Khushboo Dudley MD; Dr. Davey Bosch DO Licensed Acupuncturist: Signed Normal [facility] Chloride assayOrdered By: Олег Bosch on 03-28-2025 Chloride [Moles/Vol] 107 mmol/L 98-[address] [facility] Emergency Department Summary on 03-28-2025 Emergency Department Summary [facility] Medical Records Department [address] [place] [id number] Emergency Department Summary 03/28/25 MR#: [id number] Acct: [id number] Name: GUMARO CARRASQUILLO Rep #: [id number] : 1955 70 From: Davey Ross PCP: Dr. Khushboo Dudley MD Status:ADM IN Location: [place] [address] HPI History of Present Illness Chief Complaint: Chest Pain Informant: patient and spouse/S.O. Narrative Narrative: Recurrent chest heaviness waking her 6 AM this morning is a lot heavier and worse this morning so down to a 3 new symptoms of nausea. No dyspnea no radicular symptoms no arm weakness. She states been having on and off symptoms for past years been more frequent saw her PCP and outpatient stress test yesterday here. She is called today states there were some abnormalities to the anterior wall and she is being referred to cardiology. PCP did not know if her chest symptoms today. Hypertension hyperlipidemia. Denies diabetes denies family history of MIs at young age. Remote tobacco. Does not take chronic aspirin. Currently nausea subsided. Discussion I saw her EKG showed that she has a known left bundle branch block from 2018. Prior Similar Symptoms: Yes CVD Risk Factors: Positive for Hypertension and Hypercholesterolemia; Negative for Diabetes, Family History 1' PE Risk Factors: Negative for Recent Travel/Surgery, Recent Immobilization, Prior DVT or PE, Cancer or OCP + Smoking + >/=35 PFSH PFSH Medical History (Updated 03/28/25 @ 23:[address] Davey Bosch, DO) Diverticulosis Chest pain Vaginal vault prolapse Cystocele, midline Wears glasses Bladder disease Anemia Restless legs History of diverticulosis History of IBS Heartburn Former smoker History of edema History of stress test Fibromyalgia Diverticulosis HTN (hypertension) Hypothyroidism Diarrhea Epigastric pain Home Medications ???Medication ???Instructions ???Recorded ???Last Taken ???Type atenolol 50 mg tablet 50 mg PO BID hypertension 01/04/18 03/28/25 07:00 History 50 mg calcium carbonate 600 mg PO DAILY supplement 8 Unknown History levothyroxine 75 mcg tablet 75 mcg PO DAILY hypothyroid 03/28/25 07:00 History 75 mcg conjugated estrogens 0.625 mg/gram 0.625 mg vaginal .Q3DAYS prevent ion 06/28/22 Unknown History vaginal cream (Premarin) triamcinolone acetonide 0.5 % 1 applic topical DAILY PRN PRN Unknown History topical cream ECZEMA docusate sodium 50 mg capsule 100 mg PO PRN constipation 5 Unknown History (Colace Clear) losartan 50 mg tablet 50 mg PO DAILY hypertension 03/28/25 08:00 History 50 mg multivitamin with minerals-folic 1 tab PO DAILY supplement 03/28/25 03/28/25 07:00 History acid 0.4 mg tablet (One Daily 1 TAB Womens 50 Plus) ondansetron HCl 4 mg tablet 4 mg PO Q8H PRN PRN nausea and Unknown History vomiting Allergy/AdvReac Type Severity Reaction Status Date / Time cefaclor (From [facility]) Allergy Hives Verified 03/28/25 14:25 latex Allergy Rash Verified 03/28/25 14:25 Family History Mother Cancer lung Diabetes Colon polyps Father Hypertension Brother Diabetes Colon polyps Surgical History History of bladder suspension procedure History of esophagogastroduodenoscopy (EGD) Status post hysteroscopic myomectomy Infected cyst of Bartholin's gland duct Status post lymph node biopsy S/P cataract extraction S/P hysterectomy S/P rotator cuff repair H/O section S/P colonoscopy S/P laparoscopic cholecystectomy Status post dilation and curettage Social History Smoking Status: Former smoker ROS ROS ED Constitutional Constitutional ED: Denies chills, fever(s) or sweats ENT ENT ED: Denies sore throat Cardiovascular Cardiovascular: Reports chest pain; Denies leg edema, palpitations or racing heartbeat Respiratory/Chest Respiratory/Chest: Denies cough, dyspnea or dyspnea on exertion Gastrointestinal Gastrointestinal: Reports nausea; Denies abdominal pain, diarrhea or vomiting Genitourinary Genitourinary ED: Denies dysuria, hematuria or urinary frequency Musculoskeletal Musculoskeletal: Denies back pain, extremity pain or neck pain Integumentary Denies rash or wounds Neurologic Neurologic: Denies headache(s), paresthesias or weakness EXAM Physical Exam Const Vital Signs: 03/28/25 14:23 03/28/25 14:59 03/28/25 15:02 Temperature 98 F Temperature Source Oral Pulse Rate 98 56 L Respiratory Rate 16 Respiratory Effort Respiratory Pattern Blood Pressure 166/71 H 156/96 H Blood Pressure Mean 102 Pulse Ox 98 Oxygen Delivery Method (more content not included)... Normal [facility] Eosinophil percentageOrdered By: Davey Bosch on 03-28-2025 Eosinophils/100 WBC (Bld) 0.6 % 0-5 [facility] Erythrocyte distribution wid th ratioOrdered By: Davey Bosch on 03-28-2025 Erythrocyte distribution width (RBC) [Ratio] 12.7 % 11.6-14.6 [facility] Erythrocyte distribution wid th standard deviationOrdered By: Davey Bosch on 03-28-2025 Erythrocyte distribution width (RBC) [Ratio] 44.6 fl High 35.1-43.9 [facility] Glomerular filtration rate ( GFR) estimation/1.73 sq m using serum, plasma, or whole bOrdered By: Davey Bosch on 03-28-2025 GFR/1.73 sq M.predicted among non-blacks MDRD (S/P/Bld) [Vol rate/Area] 69 mL/min/{1.73_m2} >60 [facility] Comment on above: mL/min/1.73m2 CKD-EP I Creatinine Equation (2020) H AND P Exam - [facility] 03-28-2025 H&P Exam - Hospitalist [facility] Medical Records Department [address] [place] [address] H P Exam - Hospitalist 03/28/25 1733 MR#: [id number] Acct: [id number] Name: GUMARO CARRASQUILLO Rep #: [id number] : 1955 70 From: Loren De Souza MD PCP: Dr. Khushboo Dudley MD Status:ADM [facility] - General General Date of Admission: 03/28/25 Date of Service: 03/28/25 Chief Complaint: shortness of breath HPI Narrative GUMARO CARRASQUILLO, is a 70 F with a PMH as outlined who presents via the ED on 03/28/2025 with a complaint of chest pain which started on the morning of admission, with associated nausea. She denied any shortness of breath. Her symptoms had been recurring for a year, but recently worsened. She had an outpatient stress test yesterday which was abnormal and showd some abnormalities to the anterior wall. She was therefore referred to cardiology. However the chest pain recurred this morning. The pain was intensifying so she came into the ED this afternoon. SHe denied any lightheadedness, though she admitted to occasional palpitations, and denied any nausea, vomiting or any other symptoms. Review of systems is otherwise negative Vitals in the ED were blood pressure 117/60, pulse rate of 56, respiratory rate of 23 and pulse ox of 98% on room air. CBC showed wbc of 12.6 with WBC of 6.7 and platelets of 123. INR was 1. Chemistry showed sodium of 140 with potassium of 3.7 and creatinine of 0.89. Bicarb was 22 and anion gap was 11. Initial troponin was 8. Chest x-ray showed no acute cardiopulmonary pathology. EKG showed a new onset right bundle branch block. This was discussed with cardiology recommended that patient be started on aspirin and high intensity statin and be admitted for cardiac cath on Monday on account of abnormal stress test. [facility] Medical History (Updated 03/28/25 @ 19:[address] Loren De Souza MD) Diverticulosis Chest pain Vaginal vault prolapse Cystocele, midline Wears glasses Bladder disease Anemia Restless legs History of diverticulosis History of IBS Heartburn Former smoker History of edema History of stress test Fibromyalgia Diverticulosis HTN (hypertension) Hypothyroidism Diarrhea Epigastric pain Home Medications ???Medication ???Instructions ???Recorded ???Last Taken ???Type atenolol 50 mg tablet 50 mg PO BID 01/04/18 09/01/22 His tory calcium carbonate 1,200 mg PO DAILY 01/04/18 Unknown History levothyroxine 75 mcg tablet 75 mcg PO DAILY 01/04/18 Unknown H istory conjugated estrogens 0.625 mg/gram 0.625 mg vaginal .Q3DAYS 2 Unknown History vaginal cream (Premarin) triamcinolone acetonide 0.5 % 1 applic topical DAILY PRN PRN Unknown History topical cream ECZEMA multivitamin-ferrous 1 tab PO DAILY 08/29/22 Unknown Hi story fumarate-folic acid 18 mg-400 mcg tablet (Centrum Women) losartan 50 mg tablet 50 mg PO DAILY 03/28/25 Unknown Hi story ondansetron HCl 4 mg tablet 4 mg PO Q8H PRN PRN nausea and Unknown History vomiting Allergy/AdvReac Type Severity Reaction Status Date / Time cefaclor (From [facility]) Allergy Hives Verified 03/28/25 14:25 latex Allergy Rash Verified 03/28/25 14:25 Family History Mother Cancer lung Diabetes Colon polyps Father Hypertension Brother Diabetes Colon polyps Surgical History History of bladder suspension procedure History of esophagogastroduodenoscopy (EGD) Status post hysteroscopic myomectomy Infected cyst of Bartholin's gland duct Status post lymph node biopsy S/P cataract extraction S/P hysterectomy S/P rotator cuff repair H/O section S/P colonoscopy S/P laparoscopic cholecystectomy Status post dilation and curettage Social History Smoking Status: Former smoker ROS Constitutional Constitutional: Reports fatigue; Denies anorexia, chills, fever(s), malaise or weakness Eyes Eyes: Denies change in vision ENT HEENT: Denies dysphagia, headache(s) or sore throat Cardiovascular Cardiovascular: Reports chest pain; Denies dyspnea on exertion, edema, lightheadedness, orthopnea, palpitations, paroxysmal nocturnal dyspnea, rapid heart rate or syncope Respiratory/Chest Respiratory/Chest: Denies cough, dyspnea, productive cough, shortness of breath at rest or shortness of breath with exertion Gastrointestinal Gastrointestinal: Denies abdominal pain, constipation, diarrhea, nausea or vomiting Genitourinary Genitourinary: Denies burning urination or dysuria Musculoskeletal Musculoskeletal: Denies back pain Neurologic Neurologic: Denies confusion, dizziness, focal weakness, headache(s), seizures or syncope Psychiatric Psychi (more content not included)... Normal [facility] Hematocrit Auto (Bld) [Volum e fraction]Ordered By: Davey Bosch on 03-28-2025 Hematocrit (Bld) [Volume fraction] 37.2 % 37-47 [facility] Hemoglobin A1con 03-28-2025 HbA1c (Bld) [Mass fraction] 5.8 % High <=5.6 [facility] Comment on above: Result Comment: Norm al < 5.7 % Prediabetic 5.7 - 6.4 % Diabetic >or= 6.5 % Please note range changes. Performed By: #### L 501.9985 ####[facility] [address] [place], [address] Hemoglobin A1c percentageOrd ered By: Loren De Souza on 03-28-2025 HbA1c (Bld) [Mass fraction] 5.8 % High <5.7 [facility] Comment on above: Normal < 5.7 % Predi abetic 5.7 - 6.4 % Diabetic >or= 6.5 % Please note range changes. Hemoglobin measurementOrdere d By: Davey Bosch on 03-28-2025 Hemoglobin (Bld) [Mass/Vol] 12.6 g/dL 12.0-15.0 [facility] Immature granulocytes/100 WB C Auto (Bld)Ordered By: Davey Bosch on 03-28-2025 Immature granulocytes/100 WBC (Bld) 0.600 % 0.0-0.9 [facility] Comment on above: IG% - Immature Granu locytes (promyelocytes, myelocytes and metamyelocytes) > 1% indicates that a LEFT SHIFT is Present. International normalized rat io (INR) calculationOrdered By: Davey Bosch on 03-28-2025 INR Coag (Bld) [Relative time] 1.0 {INR} [facility] L499.0042on 03-28-2025 Trop T High Sen 9 ng/L Normal <=14 [facility] Comment on above: Performed By: #### L 499.0042 ####[facility] [address] [place], [address] L499.0043on 03-28-2025 Trop T High Sen 9 ng/L Normal <=14 [facility] Comment on above: Performed By: #### L 499.0043 ####[facility] [address] [place], [address] L501.4021on 03-28-2025 Trop T High Sen 8 ng/L Normal <=14 [facility] Comment on above: Performed By: #### L 501.9187, L100.0100, L506.0400, L500.4050, L501.9520 #### [facility] [address] [place], [address] LDL calc ser/plasOrdered By: Loren De Souza on 03-28-2025 Cholesterol in LDL [Mass/Vol] 100 mg/dL [facility] Comment on above: Txylsmwmds=478-045 m g/dL & Higher Oigj=456 mg/dL or greater Lipid Profileon 03-28-2025 CHOL:HDL 2.98 Normal [facility] Comment on above: Performed By: #### L 500.4100 ####[facility] [address] [place], [address] Cholesterol [Mass/Vol] 166 mg/dL Normal <=200 [facility] Comment on above: Result Comment: Chol esterol level, Desirable <200 mg/dL Borderline high cholesterol 200-239 mg/dL High cholesterol >=240 mg/dL Recommendations of the NCEP Adult Treatment Panel for the following risk-cutoff thresholds for the [place] population. Performed By: #### L 500.4100 ####[facility] [address] [place], [address] Cholesterol in HDL [Mass/Vol] 56 mg/dL Normal [facility] Comment on above: Result Comment: Laila onal Cholesterol Education Program (NCEP) guidelines: <40 mg/dL: Low HDL-cholesterol (major risk factor for CHD) >= 60 mg/dL: High HDL-cholesterol (negative risk factor for CHD) HDL-cholesterol is affected by a number of factors, e.g. smoking, exercise, hormones, sex and age. Performed By: #### L 500.4100 ####[facility] [address] [facility] [address] Cholesterol in LDL [Mass/Vol] 100 mg/dL Normal [facility] Comment on above: Result Comment: Bord hqowql=585-195 mg/dL Higher Vqhl=579 mg/dL or greater Performed By: #### L 500.4100 ####[facility] [address] [place] [id number] Cholesterol in VLDL [Mass/Vol] 11 mg/dL Normal 5-40 [facility] Comment on above: Performed By: #### L 500.4100 ####[facility] [address] [facility] [address] Triglyceride [Mass/Vol] 54 mg/dL Normal [facility] Comment on above: Result Comment: The drugs N-Acetylcysteine and Metamizole may falsely depress this assay. Normal range: <150 mg/dL Borderline High: 150-199 mg/dL High: 200-499 mg/dL Very High: >500 mg/dL Performed By: #### L 500.4100 ####[facility] [address] [place] [id number] MCV (mean corpuscular volume ) determinationOrdered By: Davey Bosch on 03-28-2025 MCV (RBC) [Entitic vol] 96.4 fL 81-99 [facility] Mean corpuscular hemoglobin (MCH) determinationOrdered By: Davey Bosch on 03-28-2025 MCH (RBC) [Entitic mass] 32.6 pg High 27.0-32.0 [facility] Mean corpuscular hemoglobin concentration (MCHC) determinationOrdered By: Davey Bosch on 03-28-2025 MCHC (RBC) [Mass/Vol] 33.9 g/dL 32-[address] [facility] Mean platelet volume determi nationOrdered By: Davey Bosch on 03-28-2025 Platelet mean volume (Bld) [Entitic vol] 9.7 fL 6.2-12.0 [facility] Monocyte percentageOrdered B y: Davey Bosch on 03-28-2025 Monocytes/100 WBC (Bld) 9.9 % 0-10 [facility] Neutrophil percentageOrdered By: Davey Bosch on 03-28-2025 Neutrophils/100 WBC (Bld) 72.2 % High 47-70 [facility] Nucleated red blood cell per centageOrdered By: Davey Bosch on 03-28-2025 Nucleated RBC/100 WBC (Bld) [Ratio] 0 % 0-5 [facility] Partial Thromboplast Timeon 03-28-2025 aPTT Coag (Bld) [Time] 26.6 s Normal 24.1-36.2 [facility] Comment on above: Performed By: #### L 501.9187, L100.0100, L506.0400, L500.4050, L501.9520 #### [facility] [address] [facility] [place], [place], [id number] Platelet countOrdered By: Олег Bosch on 03-28-2025 Platelets (Bld) [#/Vol] 123 10*3/uL Low 150-450 [facility] Potassium measurement (mass/ volume)Ordered By: Davey Bosch on 03-28-2025 Potassium (Unsp spec) [Mass/Vol] 3.7 mmol/L 3.3-5.1 [facility] Prothrombin Time w/INRon INR Coag (PPP) [Relative time] 1.0 {INR} Normal [facility] Comment on above: Performed By: #### L 501.9187, L100.0100, L506.0400, L500.4050, L501.9520 #### [facility] [address] [place], [place], [id number] [phone] PT Coag (PPP) [Time] 13.3 s Normal 11.7-14.[address] [facility] Comment on above: Performed By: #### L 501.9187, L100.0100, L506.0400, L500.4050, L501.9520 #### [facility] [address] [place], [place], [id number] [phone] Prothrombin timeOrdered By: Davey Bosch on 03-28-2025 PT Coag (PPP) [Time] 13.3 s 11.7-14.[address] [facility] RBC Auto (Bld) [#/Vol]Ordere d By: Davey Bosch on 03-28-2025 RBC (Bld) [#/Vol] 3.86 10*6/uL Low 4.2-5.4 [facility] Screening total cholesterol/ high density lipoprotein (HDL) cholesterol ratioOrdered By: Loren De Souza on 03-28-2025 Cholesterol.total/Chol esterol in HDL [Mass ratio] 2.98 {ratio} [facility] Serum creatinine measurement (mass/volume)Ordered By: Davey Bosch on 03-28-2025 Creatinine [Mass/Vol] 0.89 mg/dL 0.70-1.[address] [facility] Serum glucose measurement (m ass/volume)Ordered By: Davey Bosch on 03-28-2025 Glucose [Mass/Vol] 122 mg/dL High 70-99 [facility] Serum or plasma calcium hema urement (mass/volume)Ordered By: Davey Bosch on 03-28-2025 Calcium [Mass/Vol] 8.9 mg/dL 7.6-11.0 [facility] Serum or plasma cholesterol in HDL measurement (mass/volume)Ordered By: Loren De Souza on 03-28-2025 Cholesterol in HDL [Mass/Vol] 56 mg/dL >40 [facility] Comment on above: National Cholesterol Education Program (NCEP) guidelines:<40 mg/dL: Low HDL-cholesterol (major risk factor for CHD)>= 60 mg/dL: High HDL-cholesterol (negative risk factor for CHD)HDL-cholesterol is affected by a number of factors, e.g. smoking, exercise, hormones, sex and age. Serum or plasma cholesterol measurement (mass/volume)Ordered By: Loren De Souza on 03-28-2025 Cholesterol [Mass/Vol] 166 mg/dL <201 [facility] Comment on above: Cholesterol level, D esirable <200 mg/dLBorderline high cholesterol 200-239 mg/dLHigh cholesterol >=240 mg/dLRecommendations of the NCEP Adult Treatment Panel for the following risk-cutoff thresholds for the [place] Citizen [place] population. Serum or plasma urea nitroge n measurement (mass/volume)Ordered By: Davey Bosch on 03-28-2025 Urea nitrogen [Mass/Vol] 13 mg/dL 4-19 [facility] Sodium levelOrdered By: Davey Bosch on 03-28-2025 Sodium [Moles/Vol] 140 mmol/L 133-145 [facility] Triglycerides measurementOrd ered By: Loren De Souza on 03-28-2025 Triglyceride [Mass/Vol] 54 mg/dL <199 [facility] Comment on above: The drugs N-Acetylcy steine and Metamizole may falsely depress this assay. Normal range: <150 mg/dLBorderline High: 150-199 mg/dLHigh: 200-499 mg/dLVery High: >500 mg/dL Troponin T.cardiac [Mass/vol ume] in Serum or Plasma by High sensitivity methodOrdered By: Davey Bosch on 03-28-2025 Troponin T.cardiac High sensitivity method [Mass/Vol] 9 ng/L <14 [facility] Troponin T.cardiac High sensitivity method [Mass/Vol] 9 ng/L <14 [facility] Troponin T.cardiac High sensitivity method [Mass/Vol] 8 ng/L <14 [facility] White blood cell (WBC) count Ordered By: Davey Bosch on 03-28-2025 WBC (Bld) [#/Vol] 6.7 10*3/uL 4.4-11.0 [facility] Cardiovascular stress test r eportOrdered By: Robbi Yu on 03-27-2025 Study report [facility] Cardiovascular Services [address] [place] [address] MR#: [id number] Acct: [id number] Name: GUMARO CARRASQUILLO Rep #: [id number] : 1955 70 From: Robbi Yu MD Primary Care: Dr. Khushboo Dudley MD Statu s: REG CLI Referring Dr: Khushboo Dudley MD Sex: F C Stress Test Report Date: 03/27/2025 Procedure: Pharmacologic stress nuclear imaging study Indications: Chest pain Consent: Per the patient Procedure: The patient underwent pharmacologic (Regadenoson 0.4mg ) evaluation with a peak heart rate of 78 beats per minute (52%predicted maximal heart rate) and a peak blood pressure of 158/80 mmHg. The baseline ECG demonstrated sinus rhythm with left bundle branch block. The peak pharmacologic ECG was nondiagnostic secondary to baseline abnormality. There were no cardiac dysrhythmias pretest, during pharmacologic infusion, or recovery. There was no complaint of chest discomfort during pharmacologic infusion or recovery. The patient was injected with 14.3 millicuries of technetium 99m Cardiolite and subsequently rest SPECT Cardiolite nuclear imaging was obtained in the horizontal long, vertical long, and short axis views. The patient underwent pharmacologic (Regadenoson) evaluation. The patient was injected with 44.7 millicuries of technetium 99m Cardiolite and subsequently stress SPECT Cardiolite nuclear imaging was obtained in the horizontal long, vertical long, and short axis views. A gated Cardiolite study at peak stress was obtained. The examination was stopped secondary to completion of protocol. Rest and stress SPECT Cardiolite nuclear imaging status post realignment, normalization, and attenuation correction demonstrate mildly reduced perfusion of the anterior wall post pharmacological stress, suggestive of mild ischemia. There is end systolic thickening and brightening. The gated Cardiolite study demonstrates myocardial thickening and inward wall motion. The reported LVEF is70%. Impression: 1. Pharmacologic (Regadenoson) evaluation 2. Peak pharmacologic ECG with no diagnostic changes secondary to baseline abnormality. 3. There were no cardiac dysrhythmias pretest, during pharmacologic infusion, or recovery. 5. Mildly reduced perfusion of the anterior wall post pharmacological stress, suggestive of mild anterior wall ischemia. 6. The gated Cardiolite study reports an LVEF of 70%. This note was generated with Game9zation software. It may contain incorrectwords, spelling, and punctuation that were not noted in checking the note beforesigning. 03/27/251336 Date _ Robbi Yu MD CC: Dr. Khushboo Dudley MD ~ Date Dictated: 03/27/251334 Date Transcribed: 03/27/251334 Licensed Acupuncturist: EVANGELINA Espinosa [facility] Work Phone: Stress Reporton 03-27-2025 Stress Report [facility] Cardiovascular Services [address] [place] [address] MR#: [id number] Acct: [id number] Name: GUMARO CARRASQUILLO Rep #: [id number] : 1955 70 From: Robbi Yu MD Primary Care: Dr. Khushboo Dudley MD Status: REG [facility] Referring Dr: Khushboo Dudley MD Sex: F C Stress Test Report Date: 03/27/2025 Procedure: Pharmacologic stress nuclear imaging study Indications: Chest pain Consent: Per the patient Procedure: The patient underwent pharmacologic (Regadenoson 0.4mg ) evaluation with a peak heart rate of 78 beats per minute (52%predicted maximal heart rate) and a peak blood pressure of 158/80 mmHg. The baseline ECG demonstrated sinus rhythm with left bundle branch block. The peak pharmacologic ECG was nondiagnostic secondary to baseline abnormality. There were no cardiac dysrhythmias pretest, during pharmacologic infusion, or recovery. There was no complaint of chest discomfort during pharmacologic infusion or recovery. The patient was injected with 14.3 millicuries of technetium 99m Cardiolite and subsequently rest SPECT Cardiolite nuclear imaging was obtained in the horizontal long, vertical long, and short axis views. The patient underwent pharmacologic (Regadenoson) evaluation. The patient was injected with 44.7 millicuries of technetium 99m Cardiolite and subsequently stress SPECT Cardiolite nuclear imaging was obtained in the horizontal long, vertical long, and short axis views. A gated Cardiolite study at peak stress was obtained. The examination was stopped secondary to completion of protocol. Rest and stress SPECT Cardiolite nuclear imaging status post realignment, normalization, and attenuation correction demonstrate mildly reduced perfusion of the anterior wall post pharmacological stress, suggestive of mild ischemia. There is end systolic thickening and brightening. The gated Cardiolite study demonstrates myocardial thickening and inward wall motion. The reported LVEF is 70%. Impression: 1. Pharmacologic (Regadenoson) evaluation 2. Peak pharmacologic ECG with no diagnostic changes secondary to baseline abnormality. 3. There were no cardiac dysrhythmias pretest, during pharmacologic infusion, or recovery. 5. Mildly reduced perfusion of the anterior wall post pharmacological stress, suggestive of mild anterior wall ischemia. 6. The gated Cardiolite study reports an LVEF of 70%. This note was generated with Game9zation software. It may contain incorrect words, spelling, and punctuation that were not noted in checking the note before signing. 03/27/251336 Date Robbi Yu MD CC: Dr. Khushboo Dudley MD Date Dictated: 03/27/251334 Date Transcribed: 03/27/251334 Licensed Acupuncturist: EVANGELINA Signed Normal [facility] Breast Limited Unilateralon 03-18-2025 Breast Limited Unilateral [facility] Imaging Services [address], [place] [id number] Breast Limited Unilateral MR#: [id number] Acct: [id number] Name: GUMARO CARRASQUILLO Rep #: [id number] : 1955 F 70 From: Araceli Banerjee MD PCP: Dr. Khushboo Dudley MD Status: REG CLI Study: Breast Limited Unilateral Date of Exam: Exam# [id number] Ordering Dr: Khushboo Dudley MD PROCEDURE: BREAST [...] BENIGN. RECOMMEND ANNUAL MAMMOGRAPHIC SCREENING. Reading Location: [facility] CC: Dr. Khushboo Dudley MD Licensed Acupuncturist: Signed Normal [facility] Breast imaging reportOrdered By: Araceli Banerjee on 03-07-2025 Study report [facility] Imaging Services [address] [place] [id number] SCRN MAMM (CAD)W/BILLY BILAT MR#: [id number] Acct: [id number] Name: GUMARO CARRASQUILLO Rep #: [id number] : 1955 F 70 From: Zofia Banerjee MD PCP: Dr. Khushboo Dudley MD Status: REG CLI Study:SCRN MAMM (CAD)W/BILLY BILAT Date of Exa m: 03/07/25 Exam# [id number] Ordering Dr: Scott Dudley MD EXAM: SCRN [...] be mailed to the patient. Reading Location: [facility] CC: Dr. Khushboo Dudley MD ~ Licensed Acupuncturist: Signed [facility] SCRN MAMM (CAD)W/BILLY BILATo n 03-07-2025 SCRN MAMM (CAD)W/BILLY BILAT [facility] Imaging Services [address] [place] [address] SCRN MAMM (CAD)W/BILLY BILAT MR#: [id number] Acct: [id number] Name: GUMARO CARRASQUILLO Rep #: [id number] : 1955 F 70 From: Araceli Banerjee MD PCP: Dr. Khushboo Dudley MD Status: [facility] Study: SCRN MAMM (CAD)W/BILLY BILAT Date of Exam: 02/14 01/07 Exam# [id number] Ordering Dr: Khushboo Dudley MD EXAM: SCRN [...] be mailed to the patient. Reading Location: [facility] CC: Dr. Khushboo Dudley MD Licensed Acupuncturist: Signed Normal [facility] Absolute lymphocyte countOrd ered By: Khushboo Dudley on 02-20-2025 Lymphocytes Auto (Unsp spec) [#/Vol] 1.47 10*3/uL 0.83-4.51 [facility] Absolute neutrophil countOrd ered By: Khushboo Dudley on 02-20-2025 Neutrophils (Bld) [#/Vol] 3.8 10*3/uL 2.0-7.7 [facility] Anion gap in Serum or Plasma Ordered By: Khushboo Dudley on 02-20-2025 Anion gap [Moles/Vol] 10 mmol/L 5-[address] [facility] Automated lymphocyte count a s percentage of total leukocytesOrdered By: Khushboo Dudley on 02-20-2025 Lymphocytes/100 WBC Auto (Unsp spec) 24.7 % 19-41 [facility] BUN/creatinine ratioOrdered By: Khushboo Dudley on 02-20-2025 Urea nitrogen/Creatinine [Mass ratio] 14.9 mg/mg 10-20 [facility] Basophil percentageOrdered B y: Khushboo Dudley on 02-20-2025 Basophils/100 WBC (Bld) 0.5 % 0-1 [facility] Bilirubin, totalOrdered By: Khushboo Dudley on 02-20-2025 Bilirubin [Mass/Vol] 0.37 mg/dL 0.00-1.[address] [facility] CBC W/Diff, Automatedon Absolute Lymph 1.47 X10 3/uL Normal 0.83-4.51 [facility] Comment on above: Performed By: #### L 100.0100, L500.4050, L501.9520, L503.7505, L500.4100 ####[facility] [address] [place], [address] Absolute Neut 3.8 X10 3/uL Normal 2.0-7.7 [facility] Comment on above: Performed By: #### L 100.0100, L500.4050, L501.9520, L503.7505, L500.4100 ####[facility] [address] [place], [address] Basophils/100 WBC (Bld) 0.5 % Normal 0-1 [facility] Comment on above: Performed By: #### L 100.0100, L500.4050, L501.9520, L503.7505, L500.4100 ####[facility] [address] [place], [address] Eosinophils/100 WBC (Bld) 0.8 % Normal 0-5 [facility] Comment on above: Performed By: #### L 100.0100, L500.4050, L501.9520, L503.7505, L500.4100 ####[facility] [address] [place], [address] Erythrocyte distribution width (RBC) [Ratio] 12.7 % Normal 11.6-14.6 [facility] Comment on above: Performed By: #### L 100.0100, L500.4050, L501.9520, L503.7505, L500.4100 ####[facility] [address] [place], [address] Hematocrit (Bld) [Volume fraction] 39.7 % Normal 37-47 [facility] Comment on above: Performed By: #### L 100.0100, L500.4050, L501.9520, L503.7505, L500.4100 ####[facility] [address] [place], [address] Hemoglobin (Bld) [Mass/Vol] 13.1 g/dL Normal 12.0-15.0 [facility] Comment on above: Performed By: #### L 100.0100, L500.4050, L501.9520, L503.7505, L500.4100 ####[facility] [address] [place], [address] IG% 0.200 Normal 0.0-0.9 [facility] Comment on above: Result Comment: IG% - Immature Granulocytes (promyelocytes, myelocytes and metamyelocytes) > 1% indicates that a LEFT SHIFT is Present. Performed By: #### L 100.0100, L500.4050, L501.9520, L503.7505, L500.4100 ####[facility] [address] [place], [address] Lymphocytes/100 WBC (Bld) 24.7 % Normal 19-41 [facility] Comment on above: Performed By: #### L 100.0100, L500.4050, L501.9520, L503.7505, L500.4100 ####[facility] [address] [place], [address] MCH (RBC) [Entitic mass] 32.1 pg High 27.0-32.0 [facility] Comment on above: Performed By: #### L 100.0100, L500.4050, L501.9520, L503.7505, L500.4100 ####[facility] [address] [place], [address] MCHC (RBC) [Mass/Vol] 33.0 g/dL Normal 32-[address] [facility] Comment on above: Performed By: #### L 100.0100, L500.4050, L501.9520, L503.7505, L500.4100 ####[facility] [address] [place], [address] MCV (RBC) [Entitic vol] 97.3 fL Normal 81-99 [facility] Comment on above: Performed By: #### L 100.0100, L500.4050, L501.9520, L503.7505, L500.4100 ####[facility] [address] [place], [address] Monocytes/100 WBC (Bld) 9.4 % Normal 0-10 [facility] Comment on above: Performed By: #### L 100.0100, L500.4050, L501.9520, L503.7505, L500.4100 ####[facility] [address] [place], [address] Neutrophils/100 WBC (Bld) 64.4 % Normal 47-70 [facility] Comment on above: Performed By: #### L 100.0100, L500.4050, L501.9520, L503.7505, L500.4100 ####[facility] [address] [place], [address] Nucleated RBC (Bld) [#/Vol] 0 10*3/uL Normal 0-5 [facility] Comment on above: Performed By: #### L 100.0100, L500.4050, L501.9520, L503.7505, L500.4100 ####[facility] [address] [place], [address] Platelet mean volume (Bld) [Entitic vol] 10.5 fL Normal 6.2-12.0 [facility] Comment on above: Performed By: #### L 100.0100, L500.4050, L501.9520, L503.7505, L500.4100 ####[facility] [address] [place], [address] Platelets (Bld) [#/Vol] 140 10*3/uL Low 150-450 [facility] Comment on above: Performed By: #### L 100.0100, L500.4050, L501.9520, L503.7505, L500.4100 ####[facility] [address] [place], [address] RBC (Bld) [#/Vol] 4.08 10*6/uL Low 4.2-5.4 [facility] Comment on above: Performed By: #### L 100.0100, L500.4050, L501.9520, L503.7505, L500.4100 ####[facility] [address] [place], [address] RDW SD 45.8 fl High 35.1-43.9 [facility] Comment on above: Performed By: #### L 100.0100, L500.4050, L501.9520, L503.7505, L500.4100 ####[facility] [address] [place], [address] WBC (Bld) [#/Vol] 5.9 10*3/uL Normal 4.4-11.0 [facility] Comment on above: Performed By: #### L 100.0100, L500.4050, L501.9520, L503.7505, L500.4100 ####[facility] [address] [place], [address] Calculated very low density lipoprotein (VLDL) cholesterol measurementOrdered By: Khushboo Dudley on 02-20-2025 Calculated very low density lipoprotein (VLDL) cholesterol measurement 9 mg/dL 5-40 [facility] Carbon dioxide, total [Moles /volume] in Central venous bloodOrdered By: Khushboo Octavia on 02-20-2025 CO2 [Moles/Vol] 23.1 mmol/L 21.0-32.0 [facility] Chloride assayOrdered By: Hoang reednawaf Octavia on 02-20-2025 Chloride [Moles/Vol] 107 mmol/L 98-[address] [facility] Comprehensive Metabolic Prof ilon 02-20-2025 Albumin [Mass/Vol] 4.0 g/dL Normal 3.4-4.8 [facility] Comment on above: Performed By: #### L 100.0100, L500.4050, L501.9520, L503.7505, L500.4100 ####[facility] [address] [place], [address] Albumin/Globulin [Mass ratio] 1.2 {ratio} Normal 0.9-2.4 [facility] Comment on above: Performed By: #### L 100.0100, L500.4050, L501.9520, L503.7505, L500.4100 ####[facility] [address] [place], [address] ALK PHOS 81 U/L Normal 35-104 [facility] Comment on above: Performed By: #### L 100.0100, L500.4050, L501.9520, L503.7505, L500.4100 ####[facility] [address] [place], [address] ALT [Catalytic activity/Vol] 13 U/L Normal <=34 [facility] Comment on above: Performed By: #### L 100.0100, L500.4050, L501.9520, L503.7505, L500.4100 ####[facility] [address] [place], [address] AST [Catalytic activity/Vol] 22 U/L Normal <=31 [facility] Comment on above: Performed By: #### L 100.0100, L500.4050, L501.9520, L503.7505, L500.4100 ####[facility] [address] [place], [address] Bilirubin [Mass/Vol] 0.37 mg/dL Normal 0.00-1.[address] [facility] Comment on above: Performed By: #### L 100.0100, L500.4050, L501.9520, L503.7505, L500.4100 ####[facility] [address] [place], [address] BUN/CRE 14.9 RATIO Normal 10-20 [facility] Comment on above: Performed By: #### L 100.0100, L500.4050, L501.9520, L503.7505, L500.4100 ####[facility] [address] [place], [address] Calcium [Mass/Vol] 9.1 mg/dL Normal 7.6-11.0 [facility] Comment on above: Performed By: #### L 100.0100, L500.4050, L501.9520, L503.7505, L500.4100 ####[facility] [address] [place], [address] Chloride [Moles/Vol] 107 mmol/L Normal 98-[address] [facility] Comment on above: Performed By: #### L 100.0100, L500.4050, L501.9520, L503.7505, L500.4100 ####[facility] [address] [place], [address] CO2 [Moles/Vol] 23.1 mmol/L Normal 21.0-32.0 [facility] Comment on above: Performed By: #### L 100.0100, L500.4050, L501.9520, L503.7505, L500.4100 ####[facility] [address] [place], [address] Creatinine [Mass/Vol] 0.85 mg/dL Normal 0.70-1.[address] [facility] Comment on above: Performed By: #### L 100.0100, L500.4050, L501.9520, L503.7505, L500.4100 ####[facility] [address] [place], [address] GAP 10 Normal 5-15 [facility] Comment on above: Performed By: #### L 100.0100, L500.4050, L501.9520, L503.7505, L500.4100 ####[facility] [address] [place], [address] GFR/1.73 sq M.predicted among non-blacks MDRD (S/P/Bld) [Vol rate/Area] 73 mL/min/{1.73_m2} Normal >60 [facility] Comment on above: Result Comment: mL/m in/1.73m2 CKD-EPI Creatinine Equation (2020) Performed By: #### L 100.0100, L500.4050, L501.9520, L503.7505, L500.4100 ####[facility] [address] [place], [address] Globulin (S) [Mass/Vol] 3.2 g/dL Normal 2.2-4.2 [facility] Comment on above: Performed By: #### L 100.0100, L500.4050, L501.9520, L503.7505, L500.4100 ####[facility] [address] [place], [address] Glucose [Mass/Vol] 99 mg/dL Normal 70-99 [facility] Comment on above: Performed By: #### L 100.0100, L500.4050, L501.9520, L503.7505, L500.4100 ####[facility] [address] [place], [address] Potassium [Moles/Vol] 4.1 mmol/L Normal 3.3-5.[address] [facility] Comment on above: Performed By: #### L 100.0100, L500.4050, L501.9520, L503.7505, L500.4100 ####[facility] [address] [place], [address] Sodium [Moles/Vol] 141 mmol/L Normal 133-145 [facility] Comment on above: Performed By: #### L 100.0100, L500.4050, L501.9520, L503.7505, L500.4100 ####[facility] [address] [place], [address] T PROT 7.2 g/dL Normal 5.9-8.4 [facility] Comment on above: Performed By: #### L 100.0100, L500.4050, L501.9520, L503.7505, L500.4100 ####[facility] [address] [place], [address] Urea nitrogen [Mass/Vol] 13 mg/dL Normal 4-19 [facility] Comment on above: Performed By: #### L 100.0100, L500.4050, L501.9520, L503.7505, L500.4100 ####[facility] [address] [place], [address] Eosinophil percentageOrdered By: Khushboo Dudley on 02-20-2025 Eosinophils/100 WBC (Bld) 0.8 % 0-5 [facility] Erythrocyte distribution wid th ratioOrdered By: Khushboo Dudley on 02-20-2025 Erythrocyte distribution width (RBC) [Ratio] 12.7 % 11.6-14.6 [facility] Erythrocyte distribution wid th standard deviationOrdered By: Khushboo Dudley on 02-20-2025 Erythrocyte distribution width (RBC) [Ratio] 45.8 fl High 35.1-43.9 [facility] Glomerular filtration rate ( GFR) estimation/1.73 sq m using serum, plasma, or whole bOrdered By: Khushboo Dudley on 02-20-2025 GFR/1.73 sq M.predicted among non-blacks MDRD (S/P/Bld) [Vol rate/Area] 73 mL/min/{1.73_m2} >60 [facility] Comment on above: mL/min/1.73m2 CKD-EP I Creatinine Equation (2020) Hematocrit Auto (Bld) [Volum e fraction]Ordered By: Khushboo Dudley on 02-20-2025 Hematocrit (Bld) [Volume fraction] 39.7 % 37-47 [facility] Hemoglobin measurementOrdere d By: Khushboo Dudley on 02-20-2025 Hemoglobin (Bld) [Mass/Vol] 13.1 g/dL 12.0-15.0 [facility] Immature granulocytes/100 WB C Auto (Bld)Ordered By: Khushboo Dudley on 02-20-2025 Immature granulocytes/100 WBC (Bld) 0.200 % 0.0-0.9 [facility] Comment on above: IG% - Immature Granu locytes (promyelocytes, myelocytes and metamyelocytes) > 1% indicates that a LEFT SHIFT is Present. L503.7505on 02-20-2025 Natriuretic peptide B (Bld) [Mass/Vol] 320 pg/mL Normal <=900 [facility] Comment on above: Result Comment: Hear t Failure Unlikely: < 300 pg/mL Heart Failure Likely < 50 Years: > 450 pg/mL 50-75 Years: > 900 pg/mL >75 Years: > 1800 pg/mL Performed By: #### L 100.0100, L500.4050, L501.9520, L503.7505, L500.4100 ####[facility] [address] [place], [address] LDL calc ser/plasOrdered By: Khushboo Dudley on 02-20-2025 Cholesterol in LDL [Mass/Vol] 123 mg/dL [facility] Comment on above: Lgjseufbjm=941-141 m g/dL & Higher Yuat=489 mg/dL or greater Laboratory - Chemistry and C hemistry - challengeOrdered By: Khushboo Dudley on 02-20-2025 AST [Catalytic activity/Vol] 22 U/L <32 [facility] Lipid Profileon 02-20-2025 CHOL:HDL 3.33 Normal [facility] Comment on above: Performed By: #### L 100.0100, L500.4050, L501.9520, L503.7505, L500.4100 ####[facility] [address] [place], [address] Cholesterol [Mass/Vol] 188 mg/dL Normal <=200 [facility] Comment on above: Result Comment: Chol esterol level, Desirable <200 mg/dL Borderline high cholesterol 200-239 mg/dL High cholesterol >=240 mg/dL Recommendations of the NCEP Adult Treatment Panel for the following risk-cutoff thresholds for the [place] population. Performed By: #### L 100.0100, L500.4050, L501.9520, L503.7505, L500.4100 ####[facility] [address] [place], [address] Cholesterol in HDL [Mass/Vol] 57 mg/dL Normal [facility] Comment on above: Result Comment: Laila onal Cholesterol Education Program (NCEP) guidelines: <40 mg/dL: Low HDL-cholesterol (major risk factor for CHD) >= 60 mg/dL: High HDL-cholesterol (negative risk factor for CHD) HDL-cholesterol is affected by a number of factors, e.g. smoking, exercise, hormones, sex and age. Performed By: #### L 100.0100, L500.4050, L501.9520, L503.7505, L500.4100 ####[facility] [address] [place], [address] Cholesterol in LDL [Mass/Vol] 123 mg/dL Normal [facility] Comment on above: Result Comment: Bord kptjap=116-117 mg/dL Higher Tcne=545 mg/dL or greater Performed By: #### L 100.0100, [id number], [id number], L503.7505, L500.4100 ####[facility] [address] [place], [address] Cholesterol in VLDL [Mass/Vol] 9 mg/dL Normal 5-40 [facility] Comment on above: Performed By: #### L 100.0100, [id number], L501.9520, L503.7505, L500.4100 ####[facility] [address] [place], [address] Triglyceride [Mass/Vol] 44 mg/dL Normal [facility] Comment on above: Result Comment: The drugs N-Acetylcysteine and Metamizole may falsely depress this assay. Normal range: <150 mg/dL Borderline High: 150-199 mg/dL High: 200-499 mg/dL Very High: >500 mg/dL Performed By: #### L 100.0100, [id number], L501.9520, L503.7505, L500.4100 ####[facility] [address] [place], [address] MCV (mean corpuscular volume ) determinationOrdered By: Khushboo Dudley on 02-20-2025 MCV (RBC) [Entitic vol] 97.3 fL 81-99 [facility] Mean corpuscular hemoglobin (MCH) determinationOrdered By: Khushboo Dudley on 02-20-2025 MCH (RBC) [Entitic mass] 32.1 pg High 27.0-32.0 [facility] Mean corpuscular hemoglobin concentration (MCHC) determinationOrdered By: Khushboo Dudley on 02-20-2025 MCHC (RBC) [Mass/Vol] 33.0 g/dL 32-[address] [facility] Mean platelet volume determi nationOrdered By: Khushboo Dudley on 02-20-2025 Platelet mean volume (Bld) [Entitic vol] 10.5 fL 6.2-12.0 [facility] Monocyte percentageOrdered B y: Khushboo Dudley on 02-20-2025 Monocytes/100 WBC (Bld) 9.4 % 0-10 [facility] Natriuretic peptide.B prohor roland N-Terminal [Mass/volume] in Serum or PlasmaOrdered By: Khushboo Dudley on 02-20-2025 Natriuretic peptide.B prohormone N-Terminal [Mass/Vol] 320 pg/mL <900 [facility] Comment on above: Heart Failure Unlike ly: < 300 pg/mLHeart Failure Likely< 50 Years: > 450 pg/mL50-75 Years: > 900 pg/mL>75 Years: > 1800 pg/mL Neutrophil percentageOrdered By: Khushboo Dudley on 02-20-2025 Neutrophils/100 WBC (Bld) 64.4 % 47-70 [facility] Nucleated red blood cell per centageOrdered By: Khushboo Dudley on 02-20-2025 Nucleated RBC/100 WBC (Bld) [Ratio] 0 % 0-5 [facility] Platelet countOrdered By: Hoang Dudley on 02-20-2025 Platelets (Bld) [#/Vol] 140 10*3/uL Low 150-450 [facility] Potassium measurement (mass/ volume)Ordered By: Khushboo Dudley on 02-20-2025 Potassium (Unsp spec) [Mass/Vol] 4.1 mmol/L 3.3-5.1 [facility] RBC Auto (Bld) [#/Vol]Ordere d By: Khushboo Dudley on 02-20-2025 RBC (Bld) [#/Vol] 4.08 10*6/uL Low 4.2-5.4 [facility] Screening total cholesterol/ high density lipoprotein (HDL) cholesterol ratioOrdered By: Khushboo Dudley on 02-20-2025 Cholesterol.total/Chol esterol in HDL [Mass ratio] 3.33 {ratio} [facility] Serum creatinine measurement (mass/volume)Ordered By: Khushboo Dudley on 02-20-2025 Creatinine [Mass/Vol] 0.85 mg/dL 0.70-1.[address] [facility] Serum globulin measurementOr dered By: Khushboo Dudley on 02-20-2025 Globulin (S) [Mass/Vol] 3.2 g/dL 2.2-4.2 [facility] Serum glucose measurement (m ass/volume)Ordered By: Khushboo Dudley on 02-20-2025 Glucose [Mass/Vol] 99 mg/dL 70-99 [facility] Serum or plasma alanine scott otransferase (ALT) measurementOrdered By: Khushboo Dudley on 02-20-2025 ALT [Catalytic activity/Vol] 13 U/L <35 [facility] Serum or plasma albumin hema urement (mass/volume)Ordered By: Khushboo Dudley on 02-20-2025 Albumin [Mass/Vol] 4.0 g/dL 3.4-4.8 [facility] Serum or plasma albumin/glob ulin mass ratioOrdered By: Khushboo Dudley on 02-20-2025 Albumin/Globulin [Mass ratio] 1.2 {ratio} 0.9-2.4 [facility] Serum or plasma alkaline erlin sphatase measurementOrdered By: Khushboo Dudley on 02-20-2025 ALP [Catalytic activity/Vol] 81 U/L 35-104 [facility] Serum or plasma calcium hema urement (mass/volume)Ordered By: Khushboo Dudley on 02-20-2025 Calcium [Mass/Vol] 9.1 mg/dL 7.6-11.0 [facility] Serum or plasma cholesterol in HDL measurement (mass/volume)Ordered By: Khushboo Dudley on 02-20-2025 Cholesterol in HDL [Mass/Vol] 57 mg/dL >40 [facility] Comment on above: National Cholesterol Education Program (NCEP) guidelines:<40 mg/dL: Low HDL-cholesterol (major risk factor for CHD)>= 60 mg/dL: High HDL-cholesterol (negative risk factor for CHD)HDL-cholesterol is affected by a number of factors, e.g. smoking, exercise, hormones, sex and age. Serum or plasma cholesterol measurement (mass/volume)Ordered By: Khushboo Dudley on 02-20-2025 Cholesterol [Mass/Vol] 188 mg/dL <201 [facility] Comment on above: Cholesterol level, D esirable <200 mg/dLBorderline high cholesterol 200-239 mg/dLHigh cholesterol >=240 mg/dLRecommendations of the NCEP Adult Treatment Panel for the following risk-cutoff thresholds for the [place] population. Serum or plasma urea nitroge n measurement (mass/volume)Ordered By: Khushboo Dudley on 02-20-2025 Urea nitrogen [Mass/Vol] 13 mg/dL 4-19 [facility] Sodium levelOrdered By: Donnie Dudley on 02-20-2025 Sodium [Moles/Vol] 141 mmol/L 133-145 [facility] TSH DL <= 0.005 mIU/L QnOrde red By: Khushboo Dudley on 02-20-2025 TSH Qn 1.440 uIU/mL 0.300-4.20 0 [facility] Thyroid Stim Hormone (TSH)on 02-20-2025 TSH 1.440 uIU/mL Normal 0.300-4.20 0 [facility] Comment on above: Performed By: #### L 100.0100, L500.4050, L501.9520, L503.7505, L500.4100 ####[facility] [address] [place], [address] Total proteinOrdered By: Chandra Dudley on 02-20-2025 Protein [Mass/Vol] 7.2 g/dL 5.9-8.4 [facility] Triglycerides measurementOrd ered By: Khushboo Dudley on 02-20-2025 Triglyceride [Mass/Vol] 44 mg/dL <199 [facility] Comment on above: The drugs N-Acetylcy steine and Metamizole may falsely depress this assay. Normal range: <150 mg/dLBorderline High: 150-199 mg/dLHigh: 200-499 mg/dLVery High: >500 mg/dL White blood cell (WBC) count Ordered By: Khushboo Dudley on 02-20-2025 WBC (Bld) [#/Vol] 5.9 10*3/uL 4.4-11.0 [facility] Absolute lymphocyte countOrd ered By: Khushboo Dudley on 06-15-2023 Lymphocytes Auto (Unsp spec) [#/Vol] 1.30 10*3/uL 0.83-4.51 [facility] Basophil percentageOrdered B y: Khushboo Dudley on 06-15-2023 Basophils/100 WBC (Bld) 0.6 % 0-1 [facility] Bilirubin [Mass/Vol] 0.30 mg/dL 0.20-1.[address] [facility] Comment on above: For patients on eltr ombopag therapy, use of Dimension Peridot TBIL is not recommended. Chloride [Moles/Vol] 109 mmol/L 98-[address] [facility] Cholesterol [Mass/Vol] 160 mg/dL <200 [facility] Comment on above: <200 mg/dL Desirable 200-240 mg/dL Borderline >240 mg/dL High Risk Eosinophils/100 WBC (Bld) 2.3 % 0-5 [facility] Glucose [Mass/Vol] 87 mg/dL 74-106 [facility] Neutrophils (Bld) [#/Vol] 3.2 10*3/uL 2.0-7.7 [facility] Neutrophils/100 WBC (Bld) 61.8 % 47-70 [facility] Potassium [Moles/Vol] 4.3 mmol/L 3.5-5.[address] [facility] Protein [Mass/Vol] 7.2 g/dL 6.4-8.2 [facility] Sodium [Moles/Vol] 140 mmol/L 136-145 [facility] Triglyceride [Mass/Vol] 49 mg/dL <199 [facility] Comment on above: The drugs N-Acetylcy steine and Metamizole may falsely depress this assay.Serum Triglycerides Reference Interval Normal <150 mg/dL Borderline high 150 - 199 mg/dL High 200 - 499 mg/dL Very High > or = 500 mg/dL WBC (Bld) [#/Vol] 5.2 10*3/uL 4.4-11.0 [facility] Blood erythrocytes count (nu mber/volume)Ordered By: Khuhsboo Dudley on 06-15-2023 RBC (Bld) [#/Vol] 3.89 10*6/uL 4.2-5.4 [facility] Blood hemoglobin measurement (mass/volume)Ordered By: Khushboo Dudley on 06-15-2023 Hemoglobin (Bld) [Mass/Vol] 12.4 g/dL 12.0-15.0 [facility] Blood lymphocytes/100 leukoc ytesOrdered By: Khushboo Dudley on 06-15-2023 Lymphocytes/100 WBC (Bld) 24.8 % 19-41 [facility] Blood monocytes/100 leukocyt esOrdered By: Khushboo Dudley on 06-15-2023 Monocytes/100 WBC (Bld) 10.3 % 0-10 [facility] Blood platelet mean volumeOr dered By: Khushboo Dudley on 06-15-2023 Platelet mean volume (Bld) [Entitic vol] 10.5 fL 6.2-12.0 [facility] Determination of erythrocyte mean corpuscular volume (MCV)Ordered By: Khushboo Dudley on 06-15-2023 MCV (RBC) [Entitic vol] 99.5 fL 81-99 [facility] Hematocrit Auto (Bld) [Volum e fraction]Ordered By: Khushboo Dudley on 06-15-2023 Hematocrit (Bld) [Volume fraction] 38.7 % 37-47 [facility] Laboratory - Chemistry and C hemistry - challengeOrdered By: Khushboo Dudlye on 06-15-2023 ALP [Catalytic activity/Vol] 75 U/L 45-117 [facility] ALT [Catalytic activity/Vol] 23 U/L 13-56 [facility] CO2 [Moles/Vol] 25.0 mmol/L 21.0-32.0 [facility] Globulin (S) [Mass/Vol] 3.9 g/dL 2.2-4.2 [facility] Urea nitrogen/Creatinine [Mass ratio] 17.8 mg/mg 10-20 [facility] Laboratory - Hematology and Cell countsOrdered By: Khushboo Dudley on 06-15-2023 Erythrocyte distribution width (RBC) [Entitic vol] 47.9 fL 35.1-43.9 [facility] Erythrocyte distribution width (RBC) [Ratio] 13.1 % 11.6-14.6 [facility] Immature granulocytes/100 WBC (Bld) 0.200 % 0.0-0.9 [facility] Comment on above: IG% - Immature Granu locytes (promyelocytes, myelocytes and metamyelocytes) > 1% indicates that a LEFT SHIFT is Present. MCH (RBC) [Entitic mass] 31.9 pg 27.0-32.0 [facility] Nucleated RBC/100 WBC (Bld) [Ratio] 0 % 0-5 [facility] MCHC Auto (RBC) [Mass/Vol]Or dered By: Khushboo Dudley on 06-15-2023 MCHC (RBC) [Mass/Vol] 32.0 g/dL 32-[address] [facility] No Panel InformationOrdered By: Khushboo Dudley on 06-15-2023 Estimated GFR (MDRD) Amer 86 mL/min >60 [facility] Comment on above: GFR Calc Estimated GFR (MDRD) Non-Af Amer 71 mL/min >60 [facility] Comment on above: Non- GFR Calc Thyroid Stimulating Hormone (TSH) 0.40 uIU/mL 0.358-3.74 [facility] Platelets bldOrdered By: Chandra Dudley on 06-15-2023 Platelets (Bld) [#/Vol] 129 10*3/uL 150-450 [facility] Serum or plasma albumin hema urement (mass/volume)Ordered By: Khushboo Dudley on 06-15-2023 Albumin [Mass/Vol] 3.3 g/dL 3.2-5.0 [facility] Serum or plasma albumin/glob ulin mass ratioOrdered By: Khushboo Dudley on 06-15-2023 Albumin/Globulin [Mass ratio] 0.8 {ratio} 0.9-2.4 [facility] Serum or plasma calcium hema urement (mass/volume)Ordered By: Khushboo Dudley on 06-15-2023 Calcium [Mass/Vol] 8.6 mg/dL 8.5-10.1 [facility] Serum or plasma cholesterol in HDL measurement (mass/volume)Ordered By: Khushboo Dudley on 06-15-2023 Cholesterol in HDL [Mass/Vol] 54 mg/dL >40 [facility] Comment on above: The drugs N-Acetylcy steine and Metamizole may falsely depress this assay. Reference Range HDL <40 mg/dL Low HDL Cholesterol HDL >or= 60 mg/dL High HDL Cholesterol Serum or plasma cholesterol in VLDL measurement (mass/volume)Ordered By: Khushboo Dudley on 06-15-2023 Cholesterol in VLDL [Mass/Vol] 10 mg/dL 5-40 [facility] Serum or plasma creatinine m easurement (mass/volume)Ordered By: Khushboo Dudley on 06-15-2023 Creatinine [Mass/Vol] 0.84 mg/dL 0.55-1.[address] [facility] Comment on above: The validity of the calculated GFR & GFRAA in patients over 70 years has not been determined. Clinical correlation is essential. Serum or plasma low density lipoprotein (LDL) cholesterol measurement (mass/volume)Ordered By: Khushboo Dudley on 06-15-2023 Cholesterol in LDL [Mass/Vol] 96 mg/dL 0-130 [facility] Serum or plasma urea nitroge n measurement (mass/volume)Ordered By: Khushboo Miholley on 06-15-2023 Urea nitrogen [Mass/Vol] 15 mg/dL 7-18 [facility] Thin prep Papanicolaou smear with manual screeningOrdered By: Khushboo Octavia on 06-15-2023 Thin prep Papanicolaou smear with manual screening 18 U/L 15-37 [facility] Thin prep Papanicolaou smear with manual screening 6 5-15 [facility] Absolute lymphocyte counton 06-23-2022 Lymphocytes Auto (Unsp spec) [#/Vol] 1.50 10*3/uL 0.83-4.51 [facility] Work Phone: Basophil percentageon 2021 Basophils/100 WBC (Bld) 0.6 % 0-1 [facility] Work Phone: Bilirubin [Mass/Vol] 0.50 mg/dL 0.20-1.[address] [facility] Work Phone: Comment on above: For patients on eltr ombopag therapy, use of Dimension Peridot TBIL is not recommended. Chloride [Moles/Vol] 110 mmol/L 98-107 [facility] Work Phone: [phone] Cholesterol [Mass/Vol] 185 mg/dL <200 [facility] Work Phone: [phone] Comment on above: <200 mg/dL Desirable 200-240 mg/dL Borderline >240 mg/dL High Risk Eosinophils/100 WBC (Bld) 1.9 % 0-5 [facility] Work Phone: Glucose [Mass/Vol] 93 mg/dL 74-106 [facility] Work Phone: Neutrophils (Bld) [#/Vol] 3.2 10*3/uL 2.0-7.7 [facility] Work Phone: [phone] Neutrophils/100 WBC (Bld) 60.9 % 47-70 [facility] Work Phone: Potassium [Moles/Vol] 3.9 mmol/L 3.5-5.[address] [facility] Work Phone: [phone] Protein [Mass/Vol] 7.5 g/dL 6.4-8.2 [facility] Work Phone: [phone] Sodium [Moles/Vol] 143 mmol/L 136-145 [facility] Work Phone: [phone] Triglyceride [Mass/Vol] 50 mg/dL <199 [facility] Work Phone: [phone] Comment on above: The drugs N-Acetylcy steine and Metamizole may falsely depress this assay.Serum Triglycerides Reference Interval Normal <150 mg/dL Borderline high 150 - 199 mg/dL High 200 - 499 mg/dL Very High > or = 500 mg/dL WBC (Bld) [#/Vol] 5.3 10*3/uL 4.4-11.0 [facility] Work Phone: [phone] Blood erythrocytes count (nu mber/volume)on 06-23-2022 RBC (Bld) [#/Vol] 3.99 10*6/uL 4.2-5.4 [facility] Work Phone: Blood hemoglobin measurement (mass/volume)on 06-23-2022 Hemoglobin (Bld) [Mass/Vol] 13.1 g/dL 12.0-15.0 [facility] Work Phone: Blood lymphocytes/100 leukoc yteson 06-23-2022 Lymphocytes/100 WBC (Bld) 28.3 % 19-41 [facility] Work Phone: Blood monocytes/100 leukocyt eson 06-23-2022 Monocytes/100 WBC (Bld) 8.1 % 0-10 [facility] Work Phone: Blood platelet mean volumeon 06-23-2022 Platelet mean volume (Bld) [Entitic vol] 10.3 fL 6.2-12.0 [facility] Work Phone: Determination of erythrocyte mean corpuscular volume (MCV)on 06-23-2022 MCV (RBC) [Entitic vol] 98.2 fL 81-99 [facility] Work Phone: Hematocrit Auto (Bld) [Volum e fraction]on 06-23-2022 Hematocrit (Bld) [Volume fraction] 39.2 % 37-47 [facility] Work Phone: [phone] Laboratory - Chemistry and C hemistry - challengeon 06-23-2022 ALP [Catalytic activity/Vol] 75 U/L 45-117 [facility] Work Phone: ALT [Catalytic activity/Vol] 21 U/L 13-56 [facility] Work Phone: CO2 [Moles/Vol] 26.0 mmol/L 21.0-32.0 [facility] Work Phone: Globulin (S) [Mass/Vol] 4.1 g/dL 2.2-4.2 [facility] Work Phone: Urea nitrogen/Creatinine [Mass ratio] 13.8 mg/mg 10-20 [facility] Work Phone: [phone] Laboratory - Hematology and Cell countson 06-23-2022 Erythrocyte distribution width (RBC) [Entitic vol] 47.4 fL 35.1-43.9 [facility] Work Phone: Erythrocyte distribution width (RBC) [Ratio] 13.1 % 11.6-14.6 [facility] Work Phone: Immature granulocytes/100 WBC (Bld) 0.200 % 0.0-0.9 [facility] Work Phone: Comment on above: IG% - Immature Granu locytes (promyelocytes, myelocytes and metamyelocytes) > 1% indicates that a LEFT SHIFT is Present. MCH (RBC) [Entitic mass] 32.8 pg 27.0-32.0 [facility] Work Phone: Nucleated RBC/100 WBC (Bld) [Ratio] 0 % 0-5 [facility] Work Phone: MCHC Auto (RBC) [Mass/Vol]on 06-23-2022 MCHC (RBC) [Mass/Vol] 33.4 g/dL 32-[address] [facility] Work Phone: No Panel Informationon 06-23 Estimated GFR (MDRD) Amer 92 mL/min >60 [facility] Work Phone: Comment on above: GFR Calc Estimated GFR (MDRD) Non-Af Amer 76 mL/min >60 [facility] Work Phone: Comment on above: Non- GFR Calc Thyroid Stimulating Hormone (TSH) 1.33 uIU/mL 0.358-3.74 [facility] Work Phone: Platelets bldon 06-23-2022 Platelets (Bld) [#/Vol] 140 10*3/uL 150-450 [facility] Work Phone: Serum or plasma albumin hema urement (mass/volume)on 06-23-2022 Albumin [Mass/Vol] 3.4 g/dL 3.2-5.0 [facility] Work Phone: Serum or plasma albumin/glob ulin mass ratioon 06-23-2022 Albumin/Globulin [Mass ratio] 0.8 {ratio} 0.9-2.4 [facility] Work Phone: Serum or plasma calcium hema urement (mass/volume)on 06-23-2022 Calcium [Mass/Vol] 8.7 mg/dL 8.5-10.1 [facility] Work Phone: Serum or plasma cholesterol in HDL measurement (mass/volume)on 06-23-2022 Cholesterol in HDL [Mass/Vol] 61 mg/dL >40 [facility] Work Phone: Comment on above: The drugs N-Acetylcy steine and Metamizole may falsely depress this assay. Reference Range HDL <40 mg/dL Low HDL Cholesterol HDL >or= 60 mg/dL High HDL Cholesterol Serum or plasma cholesterol in VLDL measurement (mass/volume)on 06-23-2022 Cholesterol in VLDL [Mass/Vol] 10 mg/dL 5-40 [facility] Work Phone: Serum or plasma creatinine m easurement (mass/volume)on 06-23-2022 Creatinine [Mass/Vol] 0.80 mg/dL 0.55-1.[address] [facility] Work Phone: Comment on above: The validity of the calculated GFR & GFRAA in patients over 70 years has not been determined. Clinical correlation is essential. Serum or plasma low density lipoprotein (LDL) cholesterol measurement (mass/volume)on 06-23-2022 Cholesterol in LDL [Mass/Vol] 114 mg/dL 0-130 [facility] Work Phone: Serum or plasma urea nitroge n measurement (mass/volume)on 06-23-2022 Urea nitrogen [Mass/Vol] 11 mg/dL 7-18 [facility] Work Phone: Thin prep Papanicolaou smear with manual screeningon 06-23-2022 Thin prep Papanicolaou smear with manual screening 13 U/L 15-37 [facility] Work Phone: Thin prep Papanicolaou smear with manual screening 7 5-15 [facility] Work Phone: Vital Signs Date Time Vital Sign Value Performing Clinician Faci lity 03-31-2025 12:50-0400 Body temperature 97.6 [degF] Dr. Khushboo Dudley MD Work Phone: [phone] [place] [address] 03-31-2025 12:50-0400 Diastolic blood pressure 72 mm[Hg] Dr. Khushboo Dudley MD Work Phone: [phone] [place] [address] 03-31-2025 12:50-0400 Heart rate 55 /min Dr. Khushboo Dudley MD Work Phone: [phone] [place] [address] 03-31-2025 12:50-0400 Respiratory rate 16 /min Dr. Khushboo Dudley MD Work Phone: [phone] [place] [address] 03-31-2025 12:50-0400 SaO2% (BldA) [Mass fraction] 95 % Dr. Khushboo Dudley MD Work Phone: [phone] [place] [address] 03-31-2025 12:50-0400 Systolic blood pressure 122 mm[Hg] Dr. Khushboo Dudley MD Work Phone: [phone] [place] [address] 03-29-2025 15:54-0400 Body height 165.[address] Khushboo Dudley MD Work Phone: [phone] [place] [address] 03-29-2025 15:54-0400 Body weight 101.[address] Khushboo Dudley MD Work Phone: [phone] [place] [address] 03-28-2025 18:38-0400 Body mass index (BMI) [Ratio] 37 kg/m2 Dr. Khushboo Dudley MD Work Phone: [phone] [place] [address] 03-28-2025 17:52-0400 Body temperature 98.4 [degF] Dr. Khushboo Dudley MD Work Phone: [phone] [place] [address] 03-28-2025 17:52-0400 Diastolic blood pressure 71 mm[Hg] Dr. Khushboo Dudley MD Work Phone: [phone] [place] [address] 03-28-2025 17:52-0400 Heart rate 79 /min Dr. Khushboo Dudley MD Work Phone: [facility] 03-28-2025 17:52-0400 Respiratory rate 19 /min Dr. Khushboo Dudley MD Work Phone: [facility] 03-28-2025 17:52-0400 SaO2% (BldA) [Mass fraction] 100 % Dr. Khushboo Dudley MD Work Phone: [facility] 03-28-2025 17:52-0400 Systolic blood pressure 129 mm[Hg] Dr. Khushboo Dudley MD Work Phone: [facility] 03-28-2025 14:23-0400 Body height 165.[address] Khushboo Dudley MD Work Phone: [facility] 03-28-2025 14:23-0400 Body mass index (BMI) [Ratio] 37.2 kg/m2 Dr. Khushboo Dudley MD Work Phone: [facility] 03-28-2025 14:23-0400 Body weight 101.[address] Khushboo Dudley MD Work Phone: [facility] 09-01-2022 09:05-0500 Body temperature 98.6 [degF] Dr. Khushboo Dudley Work Phone: [facility] Work Phone: 09-01-2022 09:05-0500 Diastolic blood pressure 73 mm[Hg] Dr. Khushboo Dudley Work Phone: [facility] Work Phone: 09-01-2022 09:05-0500 Heart rate 64 /min Dr. Khushboo Dudley Work Phone: [facility] Work Phone: 09-01-2022 09:05-0500 Respiratory rate 18 /min Dr. Khushboo Dudley Work Phone: [facility] Work Phone: 09-01-2022 09:05-0500 SaO2% (BldA) [Mass fraction] 99 % Dr. Khushboo Dudley Work Phone: [facility] Work Phone: 09-01-2022 09:05-0500 Systolic blood pressure 129 mm[Hg] Dr. Khushboo Dudley Work Phone: [facility] Work Phone: 09-01-2022 07:38-0500 Body height 165.[address] Khushboo Dudley Work Phone: [facility] Work Phone: 09-01-2022 07:38-0500 Body mass index (BMI) [Ratio] 36.6 kg/m2 Dr. Khushboo Dudley Work Phone: [facility] Work Phone: 09-01-2022 07:38-0500 Body weight [address] Khushboo Dudley Work Phone: [facility] Work Phone: 06-28-2022 09:23-0400 Body height 165.[address] Khushboo Dudley Work Phone: [facility] Work Phone: 06-28-2022 09:23-0400 Body mass index (BMI) [Ratio] 36.9 kg/m2 Dr. Khushboo Dudley Work Phone: [facility] Work Phone: 06-28-2022 09:23-0400 Body weight 100.[address] Khushboo Dudley Work Phone: [facility] Work Phone: Encounters Encounter Date Encounter Type Care Provider Facility Start: 06-05-2025 [facility] Khushboo Dudley Facility: [facility] Start: 03-31-2025 Non-patient / Non-visit Dr. Eelazar Gonzalez MD -[facility] Work Phone: Start: 03-31-2025 Non-patient / Non-visit Dr. Isaac GARCIA -[facility] Start: 03-30-2025 Non-patient / Non-visit Dr. Jimi Flores MD -[facility] Start: 03-30-2025 Non-patient / Non-visit Dr. Johana Neff DO -[facility] Work Phone: Start: 03-29-2025 Non-patient / Non-visit Dr. Loren De Souza MD -[facility] Work Phone: Start: 03-29-2025 ambulatory [facility] Facility: [facility] Start: 03-29-2025 Non-patient / Non-visit Dr. Jimi Flores MD -[facility] Start: 03-28-2025 ambulatory [facility] Facility: [facility] Start: 03-28-2025 End: 03-31-2025 Evaluation and management of inpatient Dr. Loren De Souza MD -[facility] Work Phone: Start: 03-27-2025 ambulatory [facility] Facility: [facility] Start: 03-27-2025 Non-patient / Non-visit Dr. Robbi alex MD -[facility] Start: 03-27-2025 End: 03-27-[address] Khushboo Dudley MD Work Phone: [facility] Work Phone: Start: 03-27-2025 End: 03-27-[address] Khushboo Dudley MD -Cardiovascular Services Work Phone: Start: 03-27-2025 End: 03-27-2025 ambulatory [facility] Facility:[facility] Start: 03-18-2025 End: 03-18-[address] Khushboo Dudley MD Work Phone: [facility] Work Phone: Start: 03-18-2025 End: 03-18-[address] Khushboo Dudley MD -[facility] Work Phone: Start: 03-18-2025 End: 03-18-2025 ambulatory Khushboo Dudley Facility:[facility] Start: 03-07-2025 End: 03-07-[address] Khushboo Dudley MD Work Phone: [facility] Work Phone: Start: 03-07-2025 End: 03-07-[address] Khushboo Dudley MD -Cardiovascular Services Work Phone: Start: 03-07-2025 End: 03-07-2025 ambulatory Khushboo Dudley Facility:[facility] Start: 02-20-2025 End: 02-20-[address] Khushboo Dudley MD Work Phone: [facility] Work Phone: Start: 02-20-2025 End: 02-20-[address] Khushboo Dudley MD -[facility] Work Phone: Start: 02-20-2025 End: 02-20-2025 ambulatory Khushboo Dudley Facility:[facility] Start: 12-08-2023 End: 12-08-2023 ambulatory [facility] Work Phone: Start: 12-08-2023 End: 12-08-2023 Patient encounter procedure [facility]-Outpatient Breast Imaging Work Phone: Start: 06-15-2023 End: 06-15-2023 ambulatory [facility] Work Phone: Start: 06-15-2023 End: 06-15-2023 Patient encounter procedure [facility] Donah[facility] Start: 09-01-2022 Non-patient / Non-visit Dr. Hoang Dudley Work Phone: [facility] Start: 09-01-2022 End: 09-01-2022 Admission to same day surgery center Dr. Khushboo Dudley Work Phone: [facility]-Endoscopy Start: 09-01-2022 End: 09-01-[address] Khushboo Dudley Work Phone: [facility] Work Phone: Start: 07-04-2022 End: 07-04-[address] Khushboo Dudley Work Phone: [facility] Work Phone: Start: 07-04-2022 End: 07-04-[address] Khushboo Dudley Work Phone: [facility]-Outpatient Breast Imaging Start: 06-28-2022 Non-patient / Non-visit Dr. Hoang Dudley Work Phone: [facility] Start: 06-23-2022 End: 06-23-2022 ambulatory [facility] Work Phone: Start: 06-23-2022 End: 06-23-2022 Patient encounter procedure [facility] Procedures Date Procedure Procedure Detail Performing Clinician Start: 03-31-[address] Khushboo Dudley MD Work Phone: Start: 03-28-2025 Plain chest X-ray Dr. Scott Dudley MD Work Phone: Start: 03-28-[address] Khushboo Dudley MD Work Phone: Start: 03-27-2025 Cardiovascular stres s test using pharmacologic stress agent Dr. Khushboo Dudley MD Work Phone: Start: 03-18-[address] Khushboo Dudley MD Work Phone: Start: 03-07-2025 Screening mammography D r. Khushboo Miedel MD Work Phone: Start: 12-08-2023 Screening mammography Start: 09-01-[address] Khushboo Dudley Work Phone: Start: 07-04-2022 Screening mammography Ashley Dudley Work Phone: Plan of Treatment Date Care Activity Detail Author Start: 03-31-2025 Patient discharge [facility] Start: 03-31-2025 Notification of physician [facility] Start: 03-31-2025 Patient education [facility] Start: 03-31-2025 Provision of activity privileges [facility] Start: 03-31-2025 Pulse taking [place] Start: 03-31-2025 Taking patient vital signs [facility] Start: 03-31-2025 Wound care [place] Start: 03-31-2025 [place] Start: 03-31-2025 Catheterization of left heart [facility] Start: 03-31-2025 Catheterization of vein [facility] Start: 03-31-2025 Notification of physician [facility] Start: 03-31-2025 Preoperative care [facility] Start: 03-31-2025 [place] Start: 03-29-2025 [place] Start: 03-28-2025 Following clinical p athway protocol [facility] Start: 03-28-2025 Assessment of risk o f venous thromboembolism [facility] Start: 03-28-2025 Insertion of cathete r into peripheral vein [facility] Start: 03-28-2025 Measuring intake and output [facility] Start: 03-28-2025 Providing care accor ding to standard [facility] Start: 03-28-2025 Provision of activity privileges [facility] Start: 03-28-2025 Referral to emt/dispatcher [facility] Start: 03-28-2025 Referral to occupati onal therapist [facility] Start: 03-28-2025 Referral to service [facility] Start: 03-28-2025 [place] Start: 03-28-2025 Admission procedure [facility] Start: 03-28-2025 Hospital admission, emergency, from emergency room, medical nature [facility] Start: 03-28-2025 [place] Start: 03-28-2025 Patient referral to dietitian [facility] Start: 09-01-2022 Patient discharge [facility] Work Phone: Colonoscopy [facility] Work Phone: Hemoglobin A1c/Hemog lobin.total in Blood [facility] Patient referral [facility] Work Phone: Troponin T.cardiac [ Mass/volume] in Serum or Plasma by High sensitivity method [facility] Immunizations Immunization Date Immunization Notes Care Provider Fa ro 07-27-2023 Covid (Spikevax) Dr. Khushboo Dudley MD Work Phone: [facility] 09-30-2021 Covid (Moderna) Dr. Khushboo figueredo MD Work Phone: [facility] 02-04-2021 Covid (Moderna) Dr. Khushboo figueredo MD Work Phone: [facility] 01-07-2021 Covid (Moderna) Dr. Khushboo figueredo MD Work Phone: [facility] 11-23-2015 pneumococcal polysaccharide vaccine, [address] Khushboo Dudley MD Work Phone: [facility] Payers Date Payer Category Payer Medicare [id number] 2025 Self-pay [id number] 2025 Unknown [id number] Unknown [id number] 2.16.8 [id number] Unknown [id number] 2.16.8 [id number] Unknown [id number] 2.16.8 [id number] Unknown [id number] 2.16.8 [id number] Unknown [id number] 2.16.8 [id number] Unknown [id number] 2.16.8 [id number] Unknown [id number] 2.16.8 [id number] Unknown [id number] 2.16.8 [id number] Unknown [id number] 2.16.8 [id number] Unknown [id number] 2.16.8 [id number] Unknown [id number] 2.16.8 [id number] Unknown [id number] 2.16.8 [id number] Unknown [id number] 2.16.8 [id number] Unknown [id number] 2.16.8 [id number] Social History Date Type Detail Facility Start: 08-02-2021 End: 08-29-2022 Tobacco smoking status INIS Unknown if ever smoked [facility] Start: 03-14-2018 Cigarettes [place] Start: 1955 Sex Assigned At Female [facility] Start: 08-29-2022 End: 03-28-2025 Tobacco smoking status INIS Ex-smoker (finding) [facility] Medical Equipment Procedure Code Equipment Code [...] Goals Date Patient Goal Desired Activity /State Functional Status Date Assessment Result Facility 03-31-2025 Functional status Ambulates [place] Work Phone: Mental Status Date Assessment Result Facility 03-31-2025 Cognitive function Voice/Name [facility] Work Phone: 03-28-2025 Cognitive function Voice/Name [facility] Work Phone: 09-01-2022 Cognitive function Level Of Consciousness Awake [facility] Work Phone: Clinical Notes 03-19-2025 to 03-31-2025 Note Date & Type Note Facility 03-31-2025 Discharge summary Note Date/Time March 31, 2025 10:51am [facility] Medical Records Department [address] [facility] [place] [address] Discharge Summary 03/31/25 1039 MR#: [id number] Acct: [id number] Name: GUMARO CARRASQUILLO Rep #:[id number] : 1955 70 From: Eleazar Ramirez PCP: Dr. Khushboo Dudley MD Status:ADM IN Location: [place] [address] Providers Date of Admission: 03/28/25 Date of Discharge: 03/31/25 Primary Care Physician: Dr. Khushboo Dudley MD Consultations 03/28/25 18:33 Consult: Cardiology Routine Consulting Provider: Stoney Veronica Reason for Consult: abnormal stress test, chest pain EMERGENT Consult: No MD Notified: Yes Date Notified: 03/28/25 Time Notified: 17:44 Method of Notification: Text Reason For Visit: CHEST PAIN Diagnosis Discharge Diagnosis (1) Abnormal stress test: Status: Acute Code(s): R94.39 - Abnormal result of other cardiovascular function study (2) History of hypertension: Status: Acute Code(s): Z86.79 - Personal history of other diseases of the circulatory system Plan This is a 69-year-old female being admitted for atypical chest pain. She had abnormal stress test reported on the stress test. #Chest pain in the setting of abnormal stress test * Patient has been having exertional chest pain for about a year which gradually worsened recently so she had an outpatient stress test y which was abnormal. It showed mild perfusion reduced in the anterior wall post pharmacological stress suggestive of anterior wall ischemia with EF of 70%. * Troponins x 3 were not elevated. EKG showed sinus bradycardia 57 beats per 1, LAD, LBBB * On aspirin and high intensity statin. On metoprolol. * Patient was evaluated by emt/dispatcher. * 2D echo showed normal left ventricular wall thickness and EF of 50% with possible mild hypokinesis of the apical anterior septal wall. 03/31: Patient had cardiac cath today which shows no obstructive coronary artery disease and her EF is preserved. Stress test probably false positive stress test from the left bundle branch block. Patient also has bradycardia with heartrate 56 per night and she was on metoprolol 50 mg twice daily. Dose decreased to 25 mg advised to hold for heart less than 50 or systolic blood pressure lessthan 100 mmHg. Patient has dyslipidemia and prescription given for [id number] mg daily and baby aspirin. * #Hypertension: On losartan 03/31: Losartan dose increased to 100 mg daily and prescription was given. 2D echo March 29, 2025 Interpretation Summary The LV ejection fraction is 50 %. Left ventricular systolic function is lower limits of normal. possible Mild hypokinesis of the apical anterior septal wall The left atrium is mildly dilated The aortic root is mildly dilated at 3.8 cm Mild to moderate (1-2+) tricuspid valve insufficiency. Mild-Moderate (1-2+) mitral valve insufficiency. 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 Complicates acute care, expected recovery and prognosis. DVT prophylaxis: lovenox Discharge medication reconciliation done. Discharge follow-up instructions completed. Discharge process discussed with the patient and all questions wereanswered to patient's satisfaction. Follow with PCP in 1 to 2 weeks Total time spent, exact 35 minutes on discharge meds reconciliation, examination, coordination of care with nurses and ancillary staff, review of imaging and blood test and discussion with the patient on follow-up instructions. Medications at Discharge Home Medications calcium carbonate 600 mg PO DAILY supplement 01/04/18 levothyroxine 75 mcg tablet 75 mcg PO DAILY hypothyroid 01/04/18 conjugated estrogens 0.625 mg/gram vaginal cream (Premarin) 0.625 mg vaginal .Q3DAYS prevention 06/28/22 triamcinolone acetonide 0.5 % topical cream 1 applic topical DAILY PRN PRN ECZEMA 06/28/22 docusate sodium 50 mg capsule (Colace Clear) 100 mg PO PRN constipation 03/28/25 multivitamin with minerals-folic acid 0.4 mg tablet (One Daily Womens 50 Plus) 1tab PO DAILY supplement 03/28/25 ondansetron HCl 4 mg tablet 4 mg PO Q8H PRN PRN nausea and vomiting 03/28/25 aspirin 81 mg chewable tablet 81 mg PO BREAKFAST 30 days #30 tabs 03/31/25 atenolol 50 mg tablet 25 mg (1/2 x 50 mg) PO DAILY 30 days #30 tabs 03/31/25 atorvastatin 40 mg tablet 40 mg PO QHS 30 days #30 tabs 03/31/25 losartan 100 mg tablet 100 mg PO DAILY 30 days #30 tabs 03/31/25 nitroglycerin 0.4 mg sublingual tablet 0.4 mg sublingual Q5M PRN Cardiac/Chest Pain 30 days #30 tabs 03/31/25 Physical Exam Narrative Seen and examined Physical exam General: Alert, Oriented x3, Cooperative HEENT: Atraumatic, PERRLA, EOMI, Normocephalic. Oral: No Gingival or Mucosal Lesions/ Ulcerations Neck: Supple, No JVD, Negative Carotid Bruits Chest wall/Lungs: Air entry diminished in bilateral lung bases. No crepitation/rhonchi Cardiovascular: Sinus 56/min. Bradycardia, Normal S1,S2, systolic murmur Abdomen: Bowel Sounds Present, Soft, Non Tender, Non-Distended : No dysuria. No renal angle tenderness. No suprapubic tenderness. Extremities: No edema, Capillary Refill Less than 3 Seconds Skin: Right arm TR band AFTER Heart cath. Musculoskeletal: No Tenderness to Palpation of Joints or Extremities. ROM full. Neurological: Cranial nerves II-XII grossly intact, DTR 2+/4. No acute focal neurological deficit. Psych/Mental Status: Normal Affect, Appropriate. Weight / BMI Weight Weight: 222 lb 14.197 oz Body Mass Index (BMI) 37.0 ABG / Lab / Microbiology Data 03/31/25 04:25 03/31/25 04:25 Laboratory: Laboratory Results - last 24 hr 03/31/25 04:25: WBC 6.2, RBC 3.74 L, Hgb 12.1, Hct 35.9 L, MCV 96.0, MCH 32.4 H,MCHC 33.7, RDW Std Deviation 43.6, RDW Coeff of Daryl 12.6, Plt Count 120 L, MPV 10.0, Immature Gran % (Auto) 0.300, Neut % (Auto) 64.4, Lymph % (Auto) 22.7, Nicholas % (Auto) 10.2 H, Eos % (Auto) 1.9, Baso % (Auto) 0.5, Absolute Neuts (auto) 4.0, Absolute Lymphs (auto) 1.40, Nucleated RBC % 0, Sodium 141, Potassium 3.8, Chloride 108, Carbon Dioxide 21.9, Anion Gap 10, BUN 12, Creatinine 0.75, Estim Creat Clear Calc 76.00, Est GFR (MDRD) Non-Af 85, BUN/Creatinine Ratio 15.8, Glucose 98, Calcium 8.7 D/C Instructions Discharge Diet: Low fat / Low cholesterol and 2000 mg Sodium Diet Weight Bearing Status: Weight bearing as tolerated Call your doctor if you observe: Fever of 101 or Higher, Coldness, Increased Pain, Numbness or Tingling, Change in Color, Inability to urinate, Inability to have a bowel movement, Shortness of breath, Dizziness, Fainting spells, Swellingin the ankles, Chest pain, Prolonged hiccupping, Increased palpitations (irregular heartbeat) and Calf discomfort DC O2, CPAP, BIPAP Needs Home O2 Discharge instructions: No When: IN 2 WEEKS Meaningful Use Info Meaningful Use Meaningful Use Diagnoses (Choose all that apply): None applicable Ischemic Stroke Statin Dosing Therapy Reference: STATIN DOSE THERAPY REFERENCE: * Patients > 75 years receive moderate or high dose statin therapy. * Patients 75 years or YOUNGER should receive HIGH intensity statin dose unless contraindicated. You will be required to document reason for non-treatment if statin daily dose does not meet guidelines. HIGH DOSE STATIN THERAPY DAILY Atorvastatin > than or = to 40 mg Rosuvastatin > than or = to 20 mg Amlodipine + Atorvastatin > than or = to 2.5/40 mg Ezetimibe + Simvastatin 10/80 mg Simvastatin 80mg Discharge Plan Admission Admit Date/Time: 03/28/25 17:41 Primary Reason for Your Visit: Atypical chest pain. Cardiac cath normal. Attending Provider: Eleazar Gonzalez Primary Care Provider: Khushboo Dudley Consulting Providers: Stoney Veronica; Loren De Souza Discharge Orders/Prescriptions Prescriptions: New atorvastatin 40 mg Tablet 40 mg PO QHS 30 Days Qty: 30 3RF nitroglycerin 0.4 mg Tablet, Sublingual 0.4 mg sublingual Q5M PRN (Reason: Cardiac/Chest Pain) 30 Days Qty: 30 0RF aspirin 81 mg Tablet,Chewable 81 mg PO BREAKFAST 30 Days Qty: 30 3RF losartan 100 mg Tablet 100 mg PO DAILY 30 Days Qty: 30 2RF atenolol 50 mg Tablet 25 mg PO DAILY 30 Days Qty: 30 0RF Rx Instructions: Hold for SBP less than 130 mmHg Continued triamcinolone acetonide 0.5 % cream 1 applic topical DAILY PRN PRN (Reason: ECZEMA) Premarin 0.625 mg/gram cream 0.625 mg vaginal .Q3DAYS levothyroxine 75 MCG tablet 75 mcg PO DAILY calcium carbonate 600 MG tablet 600 mg PO DAILY ondansetron HCl 4 mg tablet 4 mg PO Q8H PRN PRN (Reason: nausea and vomiting) multivit with min-folic acid [One Daily Womens 50 Plus] 0.4 mg tablet 1 tab PO DAILY Colace Clear 50 mg capsule 100 mg PO PRN Discontinued atenolol 50 MG tablet 50 mg PO BID losartan 50 mg tablet 50 mg PO DAILY Referrals / Follow Up: Stoney Veronica MD [Med Staff - Active Staff] - Within 1 Month Khushboo Dudley MD [Primary Care Provider] - Within 2 Weeks Disposition Disposition (needs filled in before D/C Order can be placed): Home, Self Care Charges/Coding Visit Charges Inpatient E&M: 69341 Disch Hosp >30min 03/31/25 1051 <Electronically signed by Eleazar Gonzalez MD> Cosigner Signature (if applicable): CC: Dr. Khushboo Dudley MD; Dr. Eleazar Gonzalez MD~ Signed [facility] Work Phone: 1(639) 983-527906-16-2025 Discharge summary Author Eleazar Gonzalez [facility] Note Date/Time March 31, 2025 10:3 9am [facility] Medical Records Department [address] [place] [address] Instructions for Home/Discharge Instructions 03/31/25 1034 MR#: [id number] Acct: [id number] Name: GUMARO CARRASQUILLO Rep #:[id number] : 1955 70 From: Eleazar Ramirez PCP: Dr. Khushboo Dudley MD Status:ADM IN Discharge Instructions Diet Discharge Diet: Low fat / Low cholesterol and 2000 mg Sodium Diet DC O2, CPAP, BIPAP needs Home O2 Discharge instructions: No Dressing / Incision Discharge Activity: Return to Normal Activity Weight Bearing Status: Weight bearing as tolerated Dressing / Incision Call your doctor if you observe: Fever of 101 or Higher, Coldness, Increased Pain, Numbness or Tingling, Change in Color, Inability to urinate, Inability to have a bowel movement, Shortness of breath, Dizziness, Fainting spells, Swellingin the ankles, Chest pain, Prolonged hiccupping, Increased palpitations (irregular heartbeat) and Calf discomfort Follow Up Care When: IN 2 WEEKS Test Results: Test results from this visit will be discussed in further detail at your follow- up appointment, if applicable. Discharge Plan Admission Admit Date/Time: 03/28/25 17:41 Primary Reason for Your Visit: Atypical chest pain. Cardiac cath normal. Attending Provider: Eleazar Gonzalez Primary Care Provider: Khushboo Dudley Consulting Providers: Stoney Veronica; Loren De Souza Discharge Orders/Prescriptions Prescriptions: New atorvastatin 40 mg Tablet 40 mg PO QHS 30 Days Qty: 30 3RF nitroglycerin 0.4 mg Tablet, Sublingual 0.4 mg sublingual Q5M PRN (Reason: Cardiac/Chest Pain) 30 Days Qty: 30 0RF aspirin 81 mg Tablet,Chewable 81 mg PO BREAKFAST 30 Days Qty: 30 3RF losartan 100 mg Tablet 100 mg PO DAILY 30 Days Qty: 30 2RF atenolol 50 mg Tablet 25 mg PO DAILY 30 Days Qty: 30 0RF Rx Instructions: Hold for SBP less than 130 mmHg Continued triamcinolone acetonide 0.5 % cream 1 applic topical DAILY PRN PRN (Reason: ECZEMA) Premarin 0.625 mg/gram cream 0.625 mg vaginal .Q3DAYS levothyroxine 75 MCG tablet 75 mcg PO DAILY calcium carbonate 600 MG tablet 600 mg PO DAILY ondansetron HCl 4 mg tablet 4 mg PO Q8H PRN PRN (Reason: nausea and vomiting) multivit with min-folic acid [One Daily Womens 50 Plus] 0.4 mg tablet 1 tab PO DAILY Colace Clear 50 mg capsule 100 mg PO PRN Discontinued atenolol 50 MG tablet 50 mg PO BID losartan 50 mg tablet 50 mg PO DAILY Referrals / Follow Up: Stoney Veronica MD [Med Staff - Active Staff] - Within 1 Month Khushboo Dudley MD [Primary Care Provider] - Within 2 Weeks Disposition Disposition (needs filled in before D/C Order can be placed): Home, Self Care 03/31/25 1039<Electronically signed by Eleazar Gonzalez MD>Eleazar Gonzalez MD CC: Dr. Stoney Veronica MD; Dr. Khushboo Dudley MD; Dr. Loren De Souza MD ~ Signed [facility] Work Phone: 1(145) 560-143606-16-2025 Discharge summary [facility] Medical Records Department [address] [place] [address] Discharge Summary 03/31/25 1039 MR#: [id number] Acct: [id number] Name: GUMARO CARRASQUILLO Rep #:[id number] : 1955 70 From: Eleazar Ramirez PCP: Dr. Khushboo Dudley MD Status:ADM IN Location: [place] [id number] Providers Date of Admission: 03/28/25 Date of Discharge: 03/31/25 Primary Care Physician: Dr. Khushboo Dudley MD Consultations 03/28/25 18:33 Consult: Cardiology Routine Consulting Provider: Stoney Veronica Reason for Consult: abnormal stress test, chest pain EMERGENT Consult: No MD Notified: Yes Date Notified: 03/28/25 Time Notified: 17:44 Method of Notification: Text Reason For Visit: CHEST PAIN Diagnosis Discharge Diagnosis (1) Abnormal stress test: Status: Acute Code(s): R94.39 - Abnormal result of other cardiovascular function study (2) History of hypertension: Status: Acute Code(s): Z86.79 - Personal history of other diseases of the circulatory system Plan This is a 69-year-old female being admitted for atypical chest pain. She had abnormal stress test reported on the stress test. #Chest pain in the setting of abnormal stress test * Patient has been having exertional chest pain for about a year which gradually worsened recently so she had an outpatient stress test y which was abnormal. It showed mild perfusion reduced in the anterior wall post pharmacological stress suggestive of anterior wall ischemia with EF of 70%. * Troponins x 3 were not elevated. EKG showed sinus bradycardia 57 beats per 1, LAD, LBBB * On aspirin and high intensity statin. On metoprolol. * Patient was evaluated by emt/dispatcher. * 2D echo showed normal left ventricular wall thickness and EF of 50% with possible mild hypokinesis of the apical anterior septal wall. 03/31: Patient had cardiac cath today which shows no obstructive coronary artery disease and her EF is preserved. Stress test probably false positive stress test from the left bundle branch block. Patient also has bradycardia with heartrate 56 per night and she was on metoprolol 50 mg twice daily. Dose decreased to 25 mg advised to hold for heart less than 50 or systolic blood pressure lessthan 100 mmHg. Patient has dyslipidemia and prescription given for [id number] mg daily and baby aspirin. * #Hypertension: On losartan 03/31: Losartan dose increased to 100 mg daily and prescription was given. 2D echo March 29, 2025 Interpretation Summary The LV ejection fraction is 50 %. Left ventricular systolic function is lower limits of normal. possible Mild hypokinesis of the apical anterior septal wall The left atrium is mildly dilated The aortic root is mildly dilated at 3.8 cm Mild to moderate (1-2+) tricuspid valve insufficiency. Mild-Moderate (1-2+) mitral valve insufficiency. 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 Complicates acute care, expected recovery and prognosis. DVT prophylaxis: lovenox Discharge medication reconciliation done. Discharge follow-up instructions completed. Discharge process discussed with the patient and all questions wereanswered to patient's satisfaction. Follow with PCP in 1 to 2 weeks Total time spent, exact 35 minutes on discharge meds reconciliation, examination, coordination of care with nurses and ancillary staff, review of imaging and blood test and discussion with the patient on follow-up instructions. Medications at Discharge Home Medications calcium carbonate 600 mg PO DAILY supplement 01/04/18 levothyroxine 75 mcg tablet 75 mcg PO DAILY hypothyroid 01/04/18 conjugated estrogens 0.625 mg/gram vaginal cream (Premarin) 0.625 mg vaginal .Q3DAYS prevention 06/28/22 triamcinolone acetonide 0.5 % topical cream 1 applic topical DAILY PRN PRN ECZEMA 06/28/22 docusate sodium 50 mg capsule (Colace Clear) 100 mg PO PRN constipation 03/28/25 multivitamin with minerals-folic acid 0.4 mg tablet (One Daily Womens 50 Plus) 1tab PO DAILY supplement 03/28/25 ondansetron HCl 4 mg tablet 4 mg PO Q8H PRN PRN nausea and vomiting 03/28/25 aspirin 81 mg chewable tablet 81 mg PO BREAKFAST 30 days #30 tabs 03/31/25 atenolol 50 mg tablet 25 mg (1/2 x 50 mg) PO DAILY 30 days #30 tabs 03/31/25 atorvastatin 40 mg tablet 40 mg PO QHS 30 days #30 tabs 03/31/25 losartan 100 mg tablet 100 mg PO DAILY 30 days #30 tabs 03/31/25 nitroglycerin 0.4 mg sublingual tablet 0.4 mg sublingual Q5M PRN Cardiac/Chest Pain 30 days #30 tabs 03/31/25 Physical Exam Narrative Seen and examined Physical exam General: Alert, Oriented x3, Cooperative HEENT: Atraumatic, PERRLA, EOMI, Normocephalic. Oral: No Gingival or Mucosal Lesions/ Ulcerations Neck: Supple, No JVD, Negative Carotid Bruits Chest wall/Lungs: Air entry diminished in bilateral lung bases. No crepitation/rhonchi Cardiovascular: Sinus 56/min. Bradycardia, Normal S1,S2, systolic murmur Abdomen: Bowel Sounds Present, Soft, Non Tender, Non-Distended : No dysuria. No renal angle tenderness. No suprapubic tenderness. Extremities: No edema, Capillary Refill Less than 3 Seconds Skin: Right arm TR band AFTER Heart cath. Musculoskeletal: No Tenderness to Palpation of Joints or Extremities. ROM full. Neurological: Cranial nerves II-XII grossly intact, DTR 2+/4. No acute focal neurological deficit. Psych/Mental Status: Normal Affect, Appropriate. Weight / BMI Weight Weight: 222 lb 14.197 oz Body Mass Index (BMI) 37.0 ABG / Lab / Microbiology Data 03/31/25 04:25 03/31/25 04:25 Laboratory: Laboratory Results - last 24 hr 03/31/25 04:25: WBC 6.2, RBC 3.74 L, Hgb 12.1, Hct 35.9 L, MCV 96.0, MCH 32.4 H,MCHC 33.7, RDW Std Deviation 43.6, RDW Coeff of Daryl 12.6, Plt Count 120 L, MPV 10.0, Immature Gran % (Auto) 0.300, Neut% (Auto) 64.4, Lymph % (Auto) 22.7, Nicholas % (Auto) 10.2 H, Eos % (Auto) 1.9, Baso % (Auto) 0.5, Absolute Neuts (auto) 4.0, Absolute Lymphs (auto) 1.40, Nucleated RBC % 0, Sodium 141, Potassium 3.8, Chl oride 108, Carbon Dioxide 21.9, Anion Gap 10, BUN 12, Creatinine 0.75, Estim Creat Clear Calc 76.00, Est GFR (MDRD) Non-Af 85, BUN/Creatinine Ratio 15.8, Glucose 98, Calcium 8.7 D/C Instructions Discharge Diet: Low fat / Low cholesterol and 2000 mg Sodium Diet Weight Bearing Status: Weight bearing as tolerated Call your doctor if you observe: Fever of 101 or Higher, Coldness, Increased Pain, Numbness or Tingling, Change in Color, Inability to urinate, Inability to have a bowel movement, Shortness of breath, Dizziness, Fainting spells, Swellingin the ankles, Chest pain, Prolonged hiccupping, Increased palpitations (irregular heartbeat) and Calf discomfort DC O2, CPAP, BIPAP Needs Home O2 Discharge instructions: No When: IN 2 WEEKS Meaningful Use Info Meaningful Use Meaningful Use Diagnoses (Choose all that apply): None applicable Ischemic Stroke Statin Dosing Therapy Reference: STATIN DOSE THERAPY REFERENCE: * Patients > 75 years receive moderate or high dose statin therapy. * Patients 75 years or YOUNGER should receive HIGH intensity statin dose unless contraindicated. You will be required to document reason for non-treatment if statin daily dose does not meet guidelines. HIGH DOSE STATIN THERAPY DAILY Atorvastatin > than or = to 40 mg Rosuvastatin > than or = to 20 mg Amlodipine + Atorvastatin > than or = to 2.5/40 mg Ezetimibe + Simvastatin 10/80 mg Simvastatin 80mg Discharge Plan Admission Admit Date/Time: 03/28/25 17:41 Primary Reason for Your Visit: Atypical chest pain. Cardiac cath normal. Attending Provider: Eleazar Gonzalez Primary Care Provider: Khushboo Dudley Consulting Providers: Stoney Veronica; Loren De Souza Discharge Orders/Prescriptions Prescriptions: New atorvastatin 40 mg Tablet 40 mg PO QHS 30 Days Qty: 30 3RF nitroglycerin 0.4 mg Tablet, Sublingual 0.4 mg sublingual Q5M PRN (Reason: Cardiac/Chest Pain) 30 Days Qty: 30 0RF aspirin 81 mg Tablet,Chewable 81 mg PO BREAKFAST 30 Days Qty: 30 3RF losartan 100 mg Tablet 100 mg PO DAILY 30 Days Qty: 30 2RF atenolol 50 mg Tablet 25 mg PO DAILY 30 Days Qty: 30 0RF Rx Instructions: Hold for SBP less than 130 mmHg Continued triamcinolone acetonide 0.5 % cream 1 applic topical DAILY PRN PRN (Reason: ECZEMA) Premarin 0.625 mg/gram cream 0.625 mg vaginal .Q3DAYS levothyroxine 75 MCG tablet 75 mcg PO DAILY calcium carbonate 600 MG tablet 600 mg PO DAILY ondansetron HCl 4 mg tablet 4 mg PO Q8H PRN PRN (Reason: nausea and vomiting) multivit with min-folic acid [One Daily Womens 50 Plus] 0.4 mg tablet 1 tab PO DAILY Colace Clear 50 mg capsule 100 mg PO PRN Discontinued atenolol 50 MG tablet 50 mg PO BID losartan 50 mg tablet 50 mg PO DAILY Referrals / Follow Up: Stoney Veronica MD [Med Staff - Active Staff] - Within 1 Month Khushboo Dudley MD [Primary Care Provider] - Within 2 Weeks Disposition Disposition (needs filled in before D/C Order can be placed): Home, Self Care Charges/Coding Visit Charges Inpatient E&M: 92974 Disch Hosp >30min 03/31/25 1051 Cosigner Signature (if applicable): CC: Dr. Khushboo Dudley MD; Dr. Eleazar Gonzalez MD~ Signed [facility]06-16-2025 Discharge summary [facility] Medical Records Department [address] [place] [address] Instructions for Home/Discharge Instructions 03/31/25 1034 MR#: [id number] Acct: [id number] Name: GUMARO CARRASQUILLO Rep #:[id number] : 1955 70 From: Eleazar Ramirez PCP: Dr. Khushboo Dudley MD Status:ADM IN Discharge Instructions Diet Discharge Diet: Low fat / Low cholesterol and 2000 mg Sodium Diet DC O2, CPAP, BIPAP needs Home O2 Discharge instructions: No Dressing / Incision Discharge Activity: Return to Normal Activity Weight Bearing Status: Weight bearing as tolerated Dressing / Incision Call your doctor if you observe: Fever of 101 or Higher, Coldness, Increased Pain, Numbness or Tingling, Change in Color, Inability to urinate, Inability to have a bowel movement, Shortness of breath, Dizziness, Fainting spells, Swellingin the ankles, Chest pain, Prolonged hiccupping, Increased palpitations (irregular heartbeat) and Calf discomfort Follow Up Care When: IN 2 WEEKS Test Results: Test results from this visit will be discussed in further detail at your follow- up appointment, if applicable. Discharge Plan Admission Admit Date/Time: 03/28/25 17:41 Primary Reason for Your Visit: Atypical chest pain. Cardiac cath normal. Attending Provider: Eleazar Gonzalez Primary Care Provider: Khushboo Dudley Consulting Providers: Stoney Veronica; Loren De Souza Discharge Orders/Prescriptions Prescriptions: New atorvastatin 40 mg Tablet 40 mg PO QHS 30 Days Qty: 30 3RF nitroglycerin 0.4 mg Tablet, Sublingual 0.4 mg sublingual Q5M PRN (Reason: Cardiac/Chest Pain) 30 Days Qty: 30 0RF aspirin 81 mg Tablet,Chewable 81 mg PO BREAKFAST 30 Days Qty: 30 3RF losartan 100 mg Tablet 100 mg PO DAILY 30 Days Qty: 30 2RF atenolol 50 mg Tablet 25 mg PO DAILY 30 Days Qty: 30 0RF Rx Instructions: Hold for SBP less than 130 mmHg Continued triamcinolone acetonide 0.5 % cream 1 applic topical DAILY PRN PRN (Reason: ECZEMA) Premarin 0.625 mg/gram cream 0.625 mg vaginal .Q3DAYS levothyroxine 75 MCG tablet 75 mcg PO DAILY calcium carbonate 600 MG tablet 600 mg PO DAILY ondansetron HCl 4 mg tablet 4 mg PO Q8H PRN PRN (Reason: nausea and vomiting) multivit with min-folic acid [One Daily Womens 50 Plus] 0.4 mg tablet 1 tab PO DAILY Colace Clear 50 mg capsule 100 mg PO PRN Discontinued atenolol 50 MG tablet 50 mg PO BID losartan 50 mg tablet 50 mg PO DAILY Referrals / Follow Up: Stoney Veronica MD [Med Staff - Active Staff] - Within 1 Month Khushboo Dudley MD [Primary Care Provider] - Within 2 Weeks Disposition Disposition (needs filled in before D/C Order can be placed): Home, Self Care 03/31/25 1039Eleazar Gonzalez MD CC: Dr. Stoney Veronica MD; Dr. Khushboo Dudley MD; Dr. Loren De Souza MD ~ Signed [facility]06-16-2025 [facility] Medical Records Department [address] [place] [id number] Discharge Summary 03/31/25 1039 MR#: [id number] Acct: [id number] Name: GUMARO CARRASQUILLO Rep #: [id number] : 1955 70 From: Eleazar Gonzalez MD PCP: Dr. Khushboo Dudley MD Status:ADM IN [id number] Prov[facility] Date of Admission: 03/28/25 Date of Discharge: 03/31/25 Primary Care Physician: Dr. Khushboo Dudley MD Consultations 03/28/25 18:33 Consult: Cardiology Routine Consulting Provider: Stoney Veronica Reason for Consult: abnormal stress test, chest pain EMERGENT Consult: No MD Notified: Yes Date Notified: 03/28/25 Time Notified: 17:44 Method of Notification: Text Reason For Visit: CHEST PAIN Diagnosis Discharge Diagnosis (1) Abnormal stress test: Status: Acute Code(s): R94.39 - Abnormal result of other cardiovascular function study (2) History of hypertension: Status: Acute Code(s): Z86.79 - Personal history of other diseases of the circulatory system Plan This is a 69-year-old female being admitted for atypical chest pain. She had abnormal stress test reported on the stress test. #Chest pain in the setting of abnormal stress test * Patient has been having exertional chest pain for about a year which gradually worsened recently so she had an outpatient stress test y which was abnormal. It showed mild perfusion reduced in the anterior wall post pharmacological stress suggestive of anterior wall ischemia with EF of 70%. * Troponins x 3 were not elevated. EKG showed sinus bradycardia 57 beats per 1, LAD, LBBB * On aspirin and high intensity statin. On metoprolol. * Patient was evaluated by emt/dispatcher. * 2D echo showed normal left ventricular wall thickness and EF of 50% with possible mild hypokinesis of the apical anterior septal wall. 03/31: Patient had cardiac cath today which shows no obstructive coronary artery disease and her EF is preserved. Stress test probably false positive stress test from the left bundle branch block. Patient also has bradycardia with heart rate 56 per night and she was on metoprolol 50 mg twice daily. Dose decreased to 25 mg advised to hold for heart less than 50 or systolic blood pressure less than 100 mmHg. Patient has dyslipidemia and prescription given for atorvastatin 40 mg daily and baby aspirin. * #Hypertension: On losartan 03/31: Losartan dose increased to 100 mg daily and prescription was given. 2D echo March 29, 2025 Interpretation Summary The LV ejection fraction is 50 %. Left ventricular systolic function is lower limits of normal. possible Mild hypokinesis of the apical anterior septal wall The left atrium is mildly dilated The aortic root is mildly dilated at 3.8 cm Mild to moderate (1-2+) tricuspid valve insufficiency. Mild-Moderate (1-2+) mitral valve insufficiency. 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 Complicates acute care, expected recovery and prognosis. DVT prophylaxis: lovenox Discharge medication reconciliation done. Discharge follow-up instructions completed. Discharge process discussed with the patient and all questions were answered to patient's satisfaction. Follow with PCP in 1 to 2 weeks Total time spent, exact 35 minutes on discharge meds reconciliation, examination, coordination of care with nurses and ancillary staff, review of imaging and blood test and discussion with the patient on follow-up instructions. Medications at Discharge Home Medications calcium carbonate 600 mg PO DAILY supplement 01/04/18 levothyroxine 75 mcg tablet 75 mcg PO DAILY hypothyroid 01/04/18 conjugated estrogens 0.625 mg/gram vaginal cream (Premarin) 0.625 mg vaginal .Q3DAYS prevention 06/28/22 triamcinolone acetonide 0.5 % topical cream 1 applic topical DAILY PRN PRN ECZEMA 06/28/22 docusate sodium 50 mg capsule (Colace Clear) 100 mg PO PRN constipation 03/28/25 multivitamin with minerals-folic acid 0.4 mg tablet (One Daily Womens 50 Plus) 1 tab PO DAILY supplement 03/28/25 ondansetron HCl 4 mg tablet 4 mg PO Q8H PRN PRN nausea and vomiting 03/28/25 aspirin 81 mg chewable tablet 81 mg PO BREAKFAST 30 days #30 tabs 03/31/25 atenolol 50 mg tablet 25 mg (1/2 x 50 mg) PO DAILY 30 days #30 tabs 03/31/25 atorvastatin 40 mg tablet 40 mg PO QHS 30 days #30 tabs 03/31/25 losartan 100 mg tablet 100 mg PO DAILY 30 days #30 tabs 03/31/25 nitroglycerin 0.4 mg sublingual tablet 0.4 mg sublingual Q5M PRN Cardiac/Chest Pain 30 days #30 tabs 03/31/25 Physical Exam Narrative Seen and examined Physical exam General: Alert, Oriented x3, Cooperative HEENT: Atraumatic, PERRLA, EOMI, Normocephalic. Oral: No Gingival or Mucosal Lesions/ Ulcerations Neck: Supple, No JVD, Negative Carotid Bruits Chest wall/Lungs: Air entry diminished in bilateral lung bases. No crepitation/rhonchi Cardiovascular: Sinus 56/min (more content not included)...[facility]06-16-2025 Progress note Author Stoney Veronica [facility] Note Date/Time March 31, 2025 8:30 am [facility] Medical Records Department [address] [place] [address] Progress Note - Cardiology 03/31/25 0829 MR#: [id number] Acct: [id number] Name: GUMARO CARRASQUILLO Rep #:[id number] : 1955 70 From: Stoney Veronica MD PCP: Dr. Khushboo Dudley MD Status:ADM IN Location: [place] [address] Subjective Subjective Patient seen and evaluated. Underwent cardiac catheterization today. Objective Data Vital Signs: Vital Signs Temp Pulse Resp BP Pulse Ox O2 Del Method 98.3 F 56 L 16 151/78 H 97 Room Air 03/31/25 07:35 03/31/25 07:35 03/31/25 07:35 03/31/25 07:35 03/31/25 07:35 03/31/25 07:35 Oxygen Delivery Method Room Air Weight: 222 lb 14.197 oz Body Mass Index (BMI) 37.0 Intake & Output: Intake and Output for Last 24 Hours 03/29/25 03/30/25 03/31/25 23:59 23:59 23:59 Intake Total 120 / 120 120 / 120 Balance 120 / 120 120 / 120 Lab / Micro Data 03/31/25 04:25 03/31/25 04:25 Labs: Laboratory Results - last 24 hr 03/31/25 04:25: WBC 6.2, RBC 3.74 L, Hgb 12.1, Hct 35.9 L, MCV 96.0, MCH 32.4 H,MCHC 33.7, RDW Std Deviation 43.6, RDW Coeff of Daryl 12.6, Plt Count 120 L, MPV 10.0, Immature Gran % (Auto) 0.300, Neut % (Auto) 64.4, Lymph % (Auto) 22.7, Nicholas % (Auto) 10.2 H, Eos % (Auto) 1.9, Baso % (Auto) 0.5, Absolute Neuts (auto) 4.0, Absolute Lymphs (auto) 1.40, Nucleated RBC % 0, Sodium 141, Potassium 3.8, Chloride 108, Carbon Dioxide 21.9, Anion Gap 10, BUN 12, Creatinine 0.75, Estim Creat Clear Calc 76.00, Est GFR (MDRD) Non-Af 85, BUN/Creatinine Ratio 15.8, Glucose 98, Calcium 8.7 Cardiology Labs/Tests 03/31/25 04:25: WBC 6.2, RBC 3.74 L, Hgb 12.1, Hct 35.9 L, MCV 96.0, MCH 32.4 H,MCHC 33.7, Plt Count 120 L, MPV 10.0, Immature Gran % (Auto) 0.300, Neut % (Auto) 64.4, Lymph % (Auto) 22.7, Nicholas % (Auto) 10.2 H, Eos % (Auto) 1.9, Baso %(Auto) 0.5, Absolute Neuts (auto) 4.0, Nucleated RBC % 0, Sodium 141, Potassium 3.8, Chloride 108, Carbon Dioxide 21.9, Anion Gap 10, BUN 12, Creatinine 0.75, Est GFR (MDRD) Non-Af 85, BUN/Creatinine Ratio 15.8, Glucose 98, Calcium 8.7 Rhythm: EKG: ECHO: Stress Test: Cardiac Cath: PCI: CT Surgery: Holter monitor: EPS: PPM: CXR: Chest CT Scan: Physical Exam Const alert, oriented x3 and no apparent distress General Appearance: cooperative HEENT normocephalic, head/scalp atraumatic, hearing grossly normal bilaterally, moist oral mucous membranes and oropharynx normal Eyes EOMs intact bilaterally and conjunctivae normal Neck supple and no JVD Lymph Lymphatic: no lymphedema noted Resp normal respiratory effort, normal air movement, no use of accessory muscles and clear to auscultation bilaterally Cardio regular rate, regular rhythm, S1 normal heart sound, S2 normal heart sound and no murmurs GI normal to inspection, nondistended, normoactive bowel sounds, soft to palpation and non-tender Extremity normal to inspection, full ROM, normal capillary refill and no clubbing, cyanosis or edema General Extremity: no tenderness to palpation of joints or extremities Skin General Skin Exam: no breakdown Neuro oriented x3, moves all extremities and no focal motor deficits Sensorium / Orientation: awake and alert Motor Exam: strength 5/5 throughout Psych thought process normal, cooperative and affect normal Appearance: appropriate Assessment & Plan Assessment/Plan (1) Abnormal stress test: PLAN: Patient had a history of an abnormal stress test as well as chest discomfort. She underwent cardiac catheterization today which demonstrated no obstructive coronary disease and her ejection fraction was preserved. The abovewas likely a false positive stress test from the left bundle branch block. (2) History of hypertension: PLAN: Her blood pressure is uncontrolled we will make appropriate adjustments toher blood pressure and depending on the findings further recommendations made she will be followed up as an outpatient. Thank you for allowing me to participate in the care of your patient. Please don't hesitate to call if any issues arise. 03/31/25 0830 <Electronically signed by Stoney Veronica MD> Cosigner Signature (if applicable): CC: ~ Signed [facility] Work Phone: [phone] 158-487206-16-2025 Progress note [facility] Medical Records Department [address] [place] [address] Progress Note - Cardiology 03/31/25 0829 MR#: [id number] Acct: [id number] Name: GUMARO CARRASQUILLO Rep #:[id number] : 1955 70 From: Stoney Veronica MD PCP: Dr. Khushboo Dudley MD Status:ADM IN Location: [place] [address] Subjective Subjective Patient seen and evaluated. Underwent cardiac catheterization today. Objective Data Vital Signs: Vital Signs Temp Pulse Resp BP Pulse Ox O2 Del Method 98.3 F 56 L 16 151/78 H 97 Room Air 03/31/25 07:35 03/31/25 07:35 03/31/25 07:35 03/31/25 07:35 03/31/25 07:35 03/31/25 07:35 Oxygen Delivery Method Room Air Weight: 222 lb 14.197 oz Body Mass Index (BMI) 37.0 Intake & Output: Intake and Output for Last 24 Hours 03/29/25 03/30/25 03/31/25 23:59 23:59 23:59 Intake Total 120 / 120 120 / 120 Balance 120 / 120 120 / 120 Lab / Micro Data 03/31/25 04:25 03/31/25 04:25 Labs: Laboratory Results - last 24 hr 03/31/25 04:25: WBC 6.2, RBC 3.74 L, Hgb 12.1, Hct 35.9 L, MCV 96.0, MCH 32.4 H,MCHC 33.7, RDW Std Deviation 43.6, RDW Coeff of Daryl 12.6, Plt Count 120 L, MPV 10.0, Immature Gran % (Auto) 0.300, Neut% (Auto) 64.4, Lymph % (Auto) 22.7, Nicholas % (Auto) 10.2 H, Eos % (Auto) 1.9, Baso % (Auto) 0.5, Absolute Neuts (auto) 4.0, Absolute Lymphs (auto) 1.40, Nucleated RBC % 0, Sodium 141, Potassium 3.8, Chl oride 108, Carbon Dioxide 21.9, Anion Gap 10, BUN 12, Creatinine 0.75, Estim Creat Clear Calc 76.00, Est GFR (MDRD) Non-Af 85, BUN/Creatinine Ratio 15.8, Glucose 98, Calcium 8.7 Cardiology Labs/Tests 03/31/25 04:25: WBC 6.2, RBC 3.74 L, Hgb 12.1, Hct 35.9 L, MCV 96.0, MCH 32.4 H,MCHC 33.7, Plt Count 120 L, MPV 10.0, Immature Gran % (Auto) 0.300, Neut % (Auto) 64.4, Lymph % (Auto) 22.7, Nicholas % (Auto) 10.2 H, Eos % (Auto) 1.9, Baso %(Auto) 0.5, Absolute Neuts (auto) 4.0, Nucleated RBC % 0, [id number], Potassium 3.8, Chloride 108, Carbon Dioxide 21.9, Anion Gap 10, BUN 12, Creatinine 0.75, Est GFR (MDRD) Non-Af 85, BUN/Creatinine Ratio 15.8, Glucose 98, Calcium 8.7 Rhythm: EKG: ECHO: Stress Test: Cardiac Cath: PCI: CT Surgery: Holter monitor: EPS: PPM: CXR: Chest CT Scan: Physical Exam Const alert, oriented x3 and no apparent distress General Appearance: cooperative HEENT normocephalic, head/scalp atraumatic, hearing grossly normal bilaterally, moist oral mucous membranes and oropharynx normal Eyes EOMs intact bilaterally and conjunctivae normal Neck supple and no JVD Lymph Lymphatic: no lymphedema noted Resp normal respiratory effort, normal air movement, no use of accessory muscles and clear to auscultation bilaterally Cardio regular rate, regular rhythm, S1 normal heart sound, S2 normal heart sound and no murmurs GI normal to inspection, nondistended, normoactive bowel sounds, soft to palpation and non-tender Extremity normal to inspection, full ROM, normal capillary refill and no clubbing, cyanosis or edema General Extremity: no tenderness to palpation of joints or extremities Skin General Skin Exam: no breakdown Neuro oriented x3, moves all extremities and no focal motor deficits Sensorium / Orientation: awake and alert Motor Exam: strength 5/5 throughout Psych thought process normal, cooperative and affect normal Appearance: appropriate Assessment & Plan Assessment/Plan (1) Abnormal stress test: PLAN: Patient had a history of an abnormal stress test as well as chest discomfort. She underwent cardiac catheterization today which demonstrated no obstructive coronary disease and her ejection fraction was preserved. The abovewas likely a false positive stress test from the left bundle branch block. (2) History of hypertension: PLAN: Her blood pressure is uncontrolled we will make appropriate adjustments toher blood pressure and depending on the findings further recommendations made she will be followed up as an outpatient. Thank you for allowing me to participate in the care of your patient. Please don't hesitate to callif any issues arise. 03/31/25 0830 Cosigner Signature (if applicable): CC: ~ Signed [facility]06-15-2025 Progress note Author Loren De Souza [facility] Note Date/Time March 30, 2025 3:37 pm [facility] Medical Records Department [address] [place] [address] Progress Note 03/30/25 1203 MR#: [id number] Acct: [id number] Name: UGMARO CARRASQUILLO Rep #:[id number] : 1955 70 From: Loren De Souza MD PCP: Dr. Khushboo Dudley MD Status:ADM IN Location: [place] [address] Subjective Subjective Patient seen and examined. She did have a bit of chest pain overnight which improved after nitro paste. Objective Data Objective Data Vital Signs: Vital Signs Temp Pulse Resp BP Pulse Ox O2 Del Method 98.1 F 71 16 145/74 H 97 Room Air 03/30/25 10:32 03/30/25 10:32 03/30/25 10:32 03/30/25 10:32 03/30/25 10:32 03/30/25 10:32 Oxygen Delivery Method Room Air Weight: 222 lb 14.197 oz Body Mass Index (BMI) 37.0 Intake & Output: Intake and Output for Last 24 Hours 03/28/25 03/29/25 03/30/25 23:59 23:59 23:59 Intake Total 120 / 120 120 / 120 Balance 120 / 120 120 / 120 Lab / Micro Data 03/30/25 05:31 03/30/25 05:31 Labs: Laboratory Results - last 24 hr 03/30/25 05:31: WBC 5.9, RBC 3.91 L, Hgb 12.8, Hct 37.3, MCV 95.4, MCH 32.7 H, MCHC 34.3, RDW Std Deviation 43.7, RDW Coeff of Daryl 12.7, Plt Count 125 L, MPV 10.1, Immature Gran % (Auto) 0.500, Neut % (Auto) 61.0, Lymph % (Auto) 25.9, Nicholas % (Auto) 10.3 H, Eos % (Auto) 2.0, Baso % (Auto) 0.3, Absolute Neuts (auto) 3.6, Absolute Lymphs (auto) 1.53, Nucleated RBC % 0, Sodium 142, Potassium 3.9, Chloride 110 H, Carbon Dioxide 22.8, Anion Gap 9, BUN 11, Creatinine 0.74, EstimCreat Clear Calc 76.00, Est GFR (MDRD) Non-Af 87, BUN/Creatinine Ratio 15.0, Glucose 102 H, Calcium 8.8 Radiography Diagnostic Testing: Radiology Impression Echocardiogram 03/29/25 05:55 Interpretation Summary The LV ejection fraction is 50 %. Left ventricular systolic function is lower limits of normal. possible Mild hypokinesis of the apical anterior septal wall The left atrium is mildly dilated The aortic root is mildly dilated at 3.8 cm Mild to moderate (1-2+) tricuspid valve insufficiency. Mild-Moderate (1-2+) mitral valve insufficiency. Ordering Physician: Loren De Souza Referring Physician: Khushboo Dudley Performed By: Savannah Noble RDCS Physical Exam Const alert, oriented x3 and no apparent distress General Appearance: cooperative HEENT normocephalic, head/scalp atraumatic, hearing grossly normal bilaterally, moist oral mucous membranes and oropharynx normal Eyes EOMs intact bilaterally and conjunctivae normal Neck supple and no JVD Lymph Lymphatic: no lymphedema noted Resp normal respiratory effort, normal air movement, no use of accessory muscles and clear to auscultation bilaterally Cardio regular rate, regular rhythm, S1 normal heart sound, S2 normal heart sound and no murmurs GI normal to inspection, nondistended, normoactive bowel sounds, soft to palpation and non-tender Extremity normal to inspection, full ROM, normal capillary refill and no clubbing, cyanosis or edema General Extremity: no tenderness to palpation of joints or extremities Skin General Skin Exam: no breakdown Neuro oriented x3, moves all extremities and no focal motor deficits Sensorium / Orientation: awake and alert Motor Exam: strength 5/5 throughout Psych thought process normal, cooperative and affect normal Appearance: appropriate Assessment & Plan Assessment/Plan (1) CAD (coronary artery disease): (2) Chest pain: PLAN: Plan #Chest pain in the setting of abnormal stress test * Patient has been having exertional chest pain for about a year which gradually worsened recently so she had an outpatient stress test y which was abnormal. It showed mild perfusion reduced in the anterior wall post pharmacological stress suggestive of anterior wall ischemia with EF of 70%. * Troponins x 3 were not elevated. EKG showed new right bundle branch block * On aspirin and high intensity statin. On metoprolol. * Cardiology on board. For cardiac cath on Monday. * 2D echo showed normal left ventricular wall thickness and EF of 50% with possible mild hypokinesis of the apical anterior septal wall. * #Hypertension: On losartan #Hypothyroidism: On Synthroid Class II obesity: BMI is 37.1. Complicates acute care, expected recovery and prognosis. DVT prophylaxis: lovenox Charges/Coding Visit Charges Inpatient E&M: 76856 Subs Hosp L2 03/30/25 1530 <Electronically signed by Loren De Souza MD> Loren De Souza MD Cosigner Signature (if applicable): CC: ~ Signed [facility] Work Phone: 1(278) 961-861806-15-2025 Progress note Author Jimi Flores [facility] Note Date/Time March 30, 2025 2:12 pm [facility] Medical Records Department [address] [place] [address] Progress Note - Cardiology 03/30/25 1056 MR#: [id number] Acct: [id number] Name: GUMARO CARRASQUILLO Rep #:[id number] : 1955 70 From: Jimi Flores MD PCP: Dr. Khushboo Dudley MD Status:ADM IN Location: [place] [address] Subjective Subjective Had an episode of Chest pain and had a nitro patch place and it is resolved Objective Data Vital Signs: Vital Signs Temp Pulse Resp BP Pulse Ox O2 Del Method 98.1 F 71 16 145/74 H 97 Room Air 03/30/25 10:32 03/30/25 10:32 03/30/25 10:32 03/30/25 10:32 03/30/25 10:32 03/30/25 10:32 Oxygen Delivery Method Room Air Weight: 222 lb 14.197 oz Body Mass Index (BMI) 37.0 Intake & Output: Intake and Output for Last 24 Hours 03/28/25 03/29/25 03/30/25 23:59 23:59 23:59 Intake Total 120 / 120 120 / 120 Balance 120 / 120 120 / 120 Lab / Micro Data 03/30/25 05:31 03/30/25 05:31 Labs: Laboratory Results - last 24 hr 03/30/25 05:31: WBC 5.9, RBC 3.91 L, Hgb 12.8, Hct 37.3, MCV 95.4, MCH 32.7 H, MCHC 34.3, RDW Std Deviation 43.7, RDW Coeff of Daryl 12.7, Plt Count 125 L, MPV 10.1, Immature Gran % (Auto) 0.500, Neut % (Auto) 61.0, Lymph % (Auto) 25.9, Nicholas % (Auto) 10.3 H, Eos % (Auto) 2.0, Baso % (Auto) 0.3, Absolute Neuts (auto) 3.6, Absolute Lymphs (auto) 1.53, Nucleated RBC % 0, Sodium 142, Potassium 3.9, Chloride 110 H, Carbon Dioxide 22.8, Anion Gap 9, BUN 11, Creatinine 0.74, EstimCreat Clear Calc 76.00, Est GFR (MDRD) Non-Af 87, BUN/Creatinine Ratio 15.0, Glucose 102 H, Calcium 8.8 Cardiology Labs/Tests 03/30/25 05:31: WBC 5.9, RBC 3.91 L, Hgb 12.8, Hct 37.3, MCV 95.4, MCH 32.7 H, MCHC 34.3, Plt Count 125 L, MPV 10.1, Immature Gran % (Auto) 0.500, Neut % (Auto) 61.0, Lymph % (Auto) 25.9, Nicholas % (Auto) 10.3 H, Eos % (Auto) 2.0, Baso %(Auto) 0.3, Absolute Neuts (auto) 3.6, Nucleated RBC % 0, Sodium 142, Potassium 3.9, Chloride 110 H, Carbon Dioxide 22.8, Anion Gap 9, BUN 11, Creatinine 0.74, Est GFR (MDRD) Non-Af 87, BUN/Creatinine Ratio 15.0, Glucose 102 H, Calcium 8.8 Rhythm: EKG: ECHO: Stress Test: Cardiac Cath: PCI: CT Surgery: Holter monitor: EPS: PPM: CXR: Chest CT Scan: Radiography Diagnostic Testing: Radiology Impression Echocardiogram 03/29/25 05:55 Interpretation Summary The LV ejection fraction is 50 %. Left ventricular systolic function is lower limits of normal. possible Mild hypokinesis of the apical anterior septal wall The left atrium is mildly dilated The aortic root is mildly dilated at 3.8 cm Mild to moderate (1-2+) tricuspid valve insufficiency. Mild-Moderate (1-2+) mitral valve insufficiency. Ordering Physician: Loren De Souza Referring Physician: Khushboo Dudley Performed By: Savannah Noble RDCS Physical Exam Const Constitutional Narrative: General?alert oriented, pleasant HEENT- normal extraocular movements, atraumatic Neck supple no JVD Cardiovascular- normal S1-S2, no murmurs Pulmonary- clear to auscultation bilaterally Abdomen- soft to palpation, normal sounds Extremities- no edema, not tender Musculoskeletal- no tenderness no swelling Neurological -alert oriented x3 Psych -normal affect Assessment & Plan Assessment/Plan (1) CAD (coronary artery disease): (2) Chest pain: (3) Abnormal stress test: PLAN: Plan 1. Chest pain in the setting of an abnormal stress test/Unstable .angina.- reversible defect in the anterior myocardium.. The plan will be to proceed witha left heart catheterization given her symptoms. Had another episode and was placed in a Nitropatch and this is now resolved. Unfortunately she just ate breakfast. Platelets are stable at about 125,000. Plan to proceed with left heart cath in the a.m.keep npo after mn 2. Hypertension:cont meds 3. Hypothyroidism: per primary team. Chief #4 thrombocytopenia: stable Charges/Coding Visit Charges Inpatient E&M: 09824 Subs Hosp L3 03/30/25 1412 <Electronically signed by Jimi Flores MD> Cosigner Signature (if applicable): CC: ~ Signed [facility] Work Phone: 1(285) 404-103606-15-2025 Progress note [facility] Medical Records Department [address] [place] [address] Progress Note 03/30/25 1203 MR#: [id number] Acct: [id number] Name: GUMARO CARRASQUILLO Rep #:[id number] : 1955 70 From: Loren De Souza MD PCP: Dr. Khushboo Dudley MD Status:ADM IN Location: [place] [address] Subjective Subjective Patient seen and examined. She did have a bit of chest pain overnight which improved after nitro paste. Objective Data Objective Data Vital Signs: Vital Signs Temp Pulse Resp BP Pulse Ox O2 Del Method 98.1 F 71 16 145/74 H 97 Room Air 03/30/25 10:32 03/30/25 10:32 03/30/25 10:32 03/30/25 10:32 03/30/25 10:32 03/30/25 10:32 Oxygen Delivery Method Room Air Weight: 222 lb 14.197 oz Body Mass Index (BMI) 37.0 Intake & Output: Intake and Output for Last 24 Hours 03/28/25 03/29/25 03/30/25 23:59 23:59 23:59 Intake Total 120 / 120 120 / 120 Balance 120 / 120 120 / 120 Lab / Micro Data 03/30/25 05:31 03/30/25 05:31 Labs: Laboratory Results - last 24 hr 03/30/25 05:31: WBC 5.9, RBC 3.91 L, Hgb 12.8, Hct 37.3, MCV 95.4, MCH 32.7 H, MCHC 34.3, RDW Std Deviation 43.7, RDW Coeff of Daryl 12.7, Plt Count 125 L, MPV 10.1, Immature Gran % (Auto) 0.500, Neut % (Auto) 61.0, Lymph % (Auto) 25.9, Nicholas % (Auto) 10.3 H, Eos % (Auto) 2.0, Baso % (Auto) 0.3, Absolute Neuts (auto) 3.6, Absolute Lymphs (auto) 1.53, Nucleated RBC % 0, Sodium 142, Potassium 3.9, Chloride 110 H, Carbon Dioxide 22.8, Anion Gap 9, BUN 11, Creatinine 0.74, EstimCreat Clear Calc 76.00,Est GFR (MDRD) Non-Af 87, BUN/Creatinine Ratio 15.0, Glucose 102 H, Calcium 8.8 Radiography Diagnostic Testing: Radiology Impression Echocardiogram 03/29/25 05:55 Interpretation Summary The LV ejection fraction is 50 %. Left ventricular systolic function is lower limits of normal. possible Mild hypokinesis of the apical anterior septal wall The left atrium is mildly dilated The aortic root is mildly dilated at 3.8 cm Mild to moderate (1-2+) tricuspid valve insufficiency. Mild-Moderate (1-2+) mitral valve insufficiency. Ordering Physician: Loren De Souza Referring Physician: Khushboo Dudley Performed By: Savannah Noble RDCS Physical Exam Const alert, oriented x3 and no apparent distress General Appearance: cooperative HEENT normocephalic, head/scalp atraumatic, hearing grossly normal bilaterally, moist oral mucous membranes and oropharynx normal Eyes EOMs intact bilaterally and conjunctivae normal Neck supple and no JVD Lymph Lymphatic: no lymphedema noted Resp normal respiratory effort, normal air movement, no use of accessory muscles and clear to auscultation bilaterally Cardio regular rate, regular rhythm, S1 normal heart sound, S2 normal heart sound and no murmurs GI normal to inspection, nondistended, normoactive bowel sounds, soft to palpation and non-tender Extremity normal to inspection, full ROM, normal capillary refill and no clubbing, cyanosis or edema General Extremity: no tenderness to palpation of joints or extremities Skin General Skin Exam: no breakdown Neuro oriented x3, moves all extremities and no focal motor deficits Sensorium / Orientation: awake and alert Motor Exam: strength 5/5 throughout Psych thought process normal, cooperative and affect normal Appearance: appropriate Assessment & Plan Assessment/Plan (1) CAD (coronary artery disease): (2) Chest pain: PLAN: Plan #Chest pain in the setting of abnormal stress test * Patient has been having exertional chest pain for about a year which gradually worsened recently so she had an outpatient stress test y which was abnormal. It showed mild perfusion reduced in the anterior wall post pharmacological stress suggestive of anterior wall ischemia with EF of 70%. * Troponins x 3 were not elevated. EKG showed new right bundle branch block * On aspirin and high intensity statin. On metoprolol. * Cardiology on board. For cardiac cath on Monday. * 2D echo showed normal left ventricular wall thickness and EF of 50% with possible mild hypokinesis of the apical anterior septal wall. * #Hypertension: On losartan #Hypothyroidism: On Synthroid Class II obesity: BMI is 37.1. Complicates acute care, expected recovery and prognosis. DVT prophylaxis: lovenox Charges/Coding Visit Charges Inpatient E&M: 56659 Subs Hosp L2 03/30/25 7846 Loren De Souza MD Cosigner Signature (if applicable): CC: ~ Signed [facility]06-15-2025 Progress note [facility] Medical Records Department [address] [place] [address] Progress Note - Cardiology 03/30/25 1056 MR#: [id number] Acct: [id number] Name: GUMARO CARRASQUILLO Rep #:[id number] : 1955 70 From: Jimi Flores MD PCP: Dr. Khushboo Dudley MD Status:ADM IN Location: [place] [address] Subjective Subjective Had an episode of Chest pain and had a nitro patch place and it is resolved Objective Data Vital Signs: Vital Signs Temp Pulse Resp BP Pulse Ox O2 Del Method 98.1 F 71 16 145/74 H 97 Room Air 03/30/25 10:32 03/30/25 10:32 03/30/25 10:32 03/30/25 10:32 03/30/25 10:32 03/30/25 10:32 Oxygen Delivery Method Room Air Weight: 222 lb 14.197 oz Body Mass Index (BMI) 37.0 Intake & Output: Intake and Output for Last 24 Hours 03/28/25 03/29/25 03/30/25 23:59 23:59 23:59 Intake Total 120 / 120 120 / 120 Balance 120 / 120 120 / 120 Lab / Micro Data 03/30/25 05:31 03/30/25 05:31 Labs: Laboratory Results - last 24 hr 03/30/25 05:31: WBC 5.9, RBC 3.91 L, Hgb 12.8, Hct 37.3, MCV 95.4, MCH 32.7 H, MCHC 34.3, RDW Std Deviation 43.7, RDW Coeff of Daryl 12.7, Plt Count 125 L, MPV 10.1, Immature Gran % (Auto) 0.500, Neut % (Auto) 61.0, Lymph % (Auto) 25.9, Nicholas % (Auto) 10.3 H, Eos % (Auto) 2.0, Baso % (Auto) 0.3, Absolute Neuts (auto) 3.6, Absolute Lymphs (auto) 1.53, Nucleated RBC % 0, Sodium 142, Potassium 3.9, Chloride 110 H, Carbon Dioxide 22.8, Anion Gap 9, BUN 11, Creatinine 0.74, EstimCreat Clear Calc 76.00,Est GFR (MDRD) Non-Af 87, BUN/Creatinine Ratio 15.0, Glucose 102 H, Calcium 8.8 Cardiology Labs/Tests 03/30/25 05:31: WBC 5.9, RBC 3.91 L, Hgb 12.8, Hct 37.3, MCV 95.4, MCH 32.7 H, MCHC 34.3, Plt [id number] L, MPV 10.1, Immature Gran % (Auto) 0.500, Neut % (Auto) 61.0, Lymph % (Auto) 25.9, Nicholas % (Auto) 10.3 H, Eos % (Auto) 2.0, Baso %(Auto) 0.3, Absolute Neuts (auto) 3.6, Nucleated RBC % 0, Sodium 142, Potassium 3.9, Chloride 110 H, Carbon Dioxide 22.8, Anion Gap 9, BUN 11, Creatinine 0.74, Est GFR (MDRD) Non-Af 87, BUN/Creatinine Ratio 15.0, Glucose 102 H, Calcium 8.8 Rhythm: EKG: ECHO: Stress Test: Cardiac Cath: PCI: CT Surgery: Holter monitor: EPS: PPM: CXR: Chest CT Scan: Radiography Diagnostic Testing: Radiology Impression Echocardiogram 03/29/25 05:55 Interpretation Summary The LV ejection fraction is 50 %. Left ventricular systolic function is lower limits of normal. possible Mild hypokinesis of the apical anterior septal wall The left atrium is mildly dilated The aortic root is mildly dilated at 3.8 cm Mild to moderate (1-2+) tricuspid valve insufficiency. Mild-Moderate (1-2+) mitral valve insufficiency. Ordering Physician: Loren De Souza Referring Physician: Khushboo Dudley Performed By: Savannah Noble RDCS Physical Exam Const Constitutional Narrative: General?alert oriented, pleasant HEENT- normal extraocular movements, atraumatic Neck supple no JVD Cardiovascular- normal S1-S2, no murmurs Pulmonary- clear to auscultation bilaterally Abdomen- soft to palpation, normal sounds Extremities- no edema, not tender Musculoskeletal- no tenderness no swelling Neurological -alert oriented x3 Psych -normal affect Assessment & Plan Assessment/Plan (1) CAD (coronary artery disease): (2) Chest pain: (3) Abnormal stress test: PLAN: Plan 1. Chest pain in the setting of an abnormal stress test/Unstable .angina.- reversible defect in theanterior myocardium.. The plan will be to proceed witha left heart catheterization given her symptoms. Had another episode and was placed in a Nitropatch and this is now resolved. Unfortunately she just ate breakfast. Platelets are stable at about 125,000. Plan to proceed with left heart cath in the a.m.keep npo after mn 2. Hypertension:cont meds 3. Hypothyroidism: per primary team. Chief #4 thrombocytopenia: stable Charges/Coding Visit Charges Inpatient E&M: 49476 Subs Hosp L3 03/30/25 1412 Cosigner Signature (if applicable): CC: ~ Signed [facility]06-15-2025 Progress note Author Johana Neff [facility] Note Date/Time March 30, 2025 6:22 am [facility] Medical Records Department [address] [place] [address] Progress Note - Hospitalist 03/30/25620 MR#: [id number] Acct: [id number] Name: GUMARO CARRASQUILLO Rep #:[id number] : 1955 70 From: Johana Neff DO PCP: Dr. Khushboo Dudley MD Status:ADM IN Location: [place] [address] Hospitalist Note Called as patient was having mild chest pain. EKG repeat was stable. Notes reviewed and it does appear patient had abnormal stress test with intent for cardiac catheterization on Monday. Sublingual nitro has not been helpful but patient did report that Nitropaste was helpful in the emergency department so wewill start 1 inch of Nitropaste. 03/30/25 06 <Electronically signed by Johana Neff DO> Cosigner Signature (if applicable): CC: ~ Signed [facility] Work Phone: 1(276) 526-450106-15-2025 Progress note [facility] Medical Records Department [address] [place] [address] Progress Note - Hospitalist 03/30/25 0621 MR#: [id number] Acct: [id number] Name: GUMARO CARRASQUILLO Rep #:[id number] : 1955 70 From: Johana Neff DO PCP: Dr. Khushboo Dudley MD Status:ADM IN Location: [place] [address] Hospitalist Note Called as patient was having mild chest pain. EKG repeat was stable. Notes reviewed and it does appear patient had abnormal stress test with intent for cardiac catheterization on Monday. Sublingual nitro has not been helpful but patient did report that Nitropaste was helpful in the emergency department so wewill start 1 inch of Nitropaste. 03/30/25621 Cosigner Signature (if applicable): CC: ~ Signed [facility]06-14-2025 Consult note Author Jimi Flores [facility] Note Date/Time March 29, 2025 3:48 pm [facility] Medical Records Department [address] [place] [address] Consultation - Cardiology 03/29/25 1017 MR#: [id number] Acct: [id number] Name: GUMARO CARRASQUILLO Rep #:[id number] : 1955 70 From: Jimi Flores MD PCP: Dr. Khushboo Dudley MD Status:ADM IN Location: [place] [address] Assessment & Plan Assessment/Plan (1) CAD (coronary artery disease): (2) Chest pain: (3) Abnormal stress test: PLAN: Plan 1. Chest pain in the setting of an abnormal stress test - reversible defect in the anterior myocardium.. The plan will be to proceed with a left heart catheterization given her symptoms. If she has further episodes of chest pain we will plan for possible left heart cath tomorrow. Echocardiogram has been ordered results are pending. Will Trend platelets they appear to be trending downwards, if they trend to less than 50,000 we will have to hold off left heartcath. 2. Hypertension 3. Hypothyroidism #4 thrombocytopenia HPI Consult Data Date of Consult: 03/29/25 HPI Narrative Reason for Consultation: chest pain HPI Narrative: GUMARO CARRASQUILLO, is a 70 F who presents to the ER with chest pain. She reportsthat she has had chest pains for couple months on and off about 5/10 in intensity substernal nonradiating for which she was ordered a stress test. Her stress test was done which showed ischemia in LAD territory, and the plan was anelective heart catheterization. However she woke up yesterday morning with chest pain reports it was again substernal 5/10 in intensity lasted a few minutes. And so she came to the ER. She has since had a few more brief episodes however no chest pains at this time. Echocardiogram is pending. She denies fever, chills, orthopnea, PND, loss of consciousness, diarrhea, constipation. Her high-sensitivity troponins have been within normal limits. [facility] Medical History (Updated 03/28/25 @ 23:[address] Davey Bosch, DO) Diverticulosis Chest pain Vaginal vault prolapse Cystocele, midline Wears glasses Bladder disease Anemia Restless legs History of diverticulosis History of IBS Heartburn Former smoker History of edema History of stress test Fibromyalgia Diverticulosis HTN (hypertension) Hypothyroidism Diarrhea Epigastric pain Home Medications ?Medication ?Instructions ?Recorded ?Last Taken ?Type atenolol 50 mg tablet 50 mg PO BID hypertension 03/28/25 07:00 History 50 mg calcium carbonate 600 mg PO DAILY supplement 0 01/04/18 Unknown History levothyroxine 75 mcg tablet 75 mcg PO DAILY hypothyroi d 01/04/18 03/28/25 07:00 History 75 mcg conjugated estrogens 0.625 mg/gram 0.625 mg vaginal .Q 3DAYS prevention 06/28/22 Unknown History vaginal cream (Premarin) triamcinolone acetonide 0.5 % 1 applic topical DAILY P RN PRN 06/28/22 Unknown History topical cream ECZEMA docusate sodium 50 mg capsule 100 mg PO PRN constipati on 03/28/25 Unknown History (Colace Clear) losartan 50 mg tablet 50 mg PO DAILY hypertension 03/28/25 03/28/25 08:00 History 50 mg multivitamin with minerals-folic 1 tab PO DAILY supple ment 03/28/25 03/28/25 07:00 History acid 0.4 mg tablet (One Daily 1 TAB Womens 50 Plus) ondansetron HCl 4 mg tablet 4 mg PO Q8H PRN PRN nausea and 03/28/25 Unknown History vomiting Allergy/AdvReac Type Severity Reaction Status Date / Time cefaclor (From [facility]) Allergy Hives Verified 03/28/25 14:25 latex Allergy Rash Verified 03/28/25 14:25 Family History Mother Cancer lung Diabetes Colon polyps Father Hypertension Brother Diabetes Colon polyps Surgical History History of bladder suspension procedure History of esophagogastroduodenoscopy (EGD) Status post hysteroscopic myomectomy Infected cyst of Bartholin's gland duct Status post lymph node biopsy S/P cataract extraction S/P hysterectomy S/P rotator cuff repair H/O section S/P colonoscopy S/P laparoscopic cholecystectomy Status post dilation and curettage Social History Smoking Status: Former smoker Physical Exam Const Constitutional Narrative: General?alert oriented HEENT- normal extraocular movements Neck supple no JVD Cardiovascular- normal S1-S2, no murmurs Pulmonary- clear to auscultation bilaterally Abdomen- soft to palpation, normal sounds Extremities- no edema Musculoskeletal- no tenderness no swelling Neurological -alert oriented Psych -normal affect Risk Stratification Risk Stratification Applicable: No Objective Data Vital Signs: Vital Signs Temp Pulse Resp BP Pulse Ox O2 Del Method 99.0 F 57 L 16 133/70 H 98 Room Air 03/29/25 08:09 03/29/25 08:09 03/29/25 08:09 03/29/25 08:09 03/29/25 08:42 03/29/25 08:42 Oxygen Delivery Method Room Air Weight: 222 lb 14.197 oz Body Mass Index (BMI) 37.0 Lab / Micro Data 03/29/25 05:15 03/29/25 05:15 Labs: Laboratory Results - last 24 hr 03/28/25 14:53: PT 13.3, INR 1.0, APTT 26.6, Sodium 140, Potassium 3.7, [id number], Carbon Dioxide 22.0, Anion Gap 11, BUN 13, Creatinine 0.89, Estim Creat Clear Calc 68.48, Est GFR (MDRD) Non-Af 69, BUN/Creatinine Ratio 14.6, Glucose 122 H, Calcium 8.9, Troponin T High Sens 8, Triglycerides 54, Cholesterol 166, LDL Cholesterol, Calc 100, VLDL Cholesterol 11, HDL Cholesterol 56, Cholesterol/HDL Ratio 2.98 03/28/25 15:16: Hemoglobin A1c 5.8 H 03/28/25 16:52: Troponin T Hi Sens 2 Hr 9 03/28/25 19:05: Troponin T Hi Sens 4Hr 9 03/28/25 : WBC 6.7, RBC 3.86 L, Hgb 12.6, Hct 37.2, MCV 96.4, MCH 32.6 H, MCHC 33.9, RDW Std Deviation 44.6 H, RDW Coeff of Daryl 12.7, Plt Count 123 L, MPV 9.7,Immature Gran % (Auto) 0.600, Neut % (Auto) 72.2 H, Lymph % (Auto) 16.3 L, Nicholas % (Auto) 9.9, Eos % (Auto) 0.6, Baso % (Auto) 0.4, Absolute Neuts (auto) 4.8, Absolute Lymphs (auto) 1.09, Nucleated RBC % 0 03/29/25 05:15: WBC 6.4, RBC 3.55 L, Hgb 11.5 L, Hct 33.9 L, MCV 95.5, MCH 32.4 H, MCHC 33.9, RDW Std Deviation 44.3 H, RDW Coeff of Daryl 12.7, Plt Count 116 L, MPV 10.1, Immature Gran % (Auto) 0.500, Neut % (Auto) 69.8, Lymph % (Auto) 18.9 L, Nicholas % (Auto) 9.4, Eos % (Auto) 1.1, Baso % (Auto) 0.3, Absolute Neuts (auto)4.4, Absolute Lymphs (auto) 1.20, Nucleated RBC % 0, Sodium 140, Potassium 3.8, Chloride 109 H, Carbon Dioxide 21.5, Anion Gap 9, BUN 11, Creatinine 0.69 L, Estim Creat Clear Calc 76.00, Est GFR (MDRD) Non-Af 93, BUN/Creatinine Ratio 16.2, Glucose 98, Calcium 8.6 Cardiology Labs/Tests 03/28/25 14:53: PT 13.3, INR 1.0, APTT 26.6, Sodium 140, Potassium 3.7, [id number], Carbon Dioxide 22.0, Anion Gap 11, BUN 13, Creatinine 0.89, Est GFR (MDRD) Non- Af 69, BUN/Creatinine Ratio 14.6, Glucose 122 H, Calcium 8.9, Triglycerides 54, Cholesterol 166, VLDL Cholesterol 11, HDL Cholesterol 56, Cholesterol/HDL Ratio 2.98 03/28/25 15:16: Hemoglobin A1c 5.8 H 03/28/25 : WBC 6.7, RBC 3.86 L, Hgb 12.6, Hct 37.2, MCV 96.4, MCH 32.6 H, MCHC 33.9, Plt Count 123 L, MPV 9.7, Immature Gran % (Auto) 0.600, Neut % (Auto) 72.2H, Lymph % (Auto) 16.3 L, Nicholas % (Auto) 9.9, Eos % (Auto) 0.6, Baso % (Auto) 0.4, Absolute Neuts (auto) 4.8, Nucleated RBC % 0 03/29/25 05:15: WBC 6.4, RBC 3.55 L, Hgb 11.5 L, Hct 33.9 L, MCV 95.5, MCH 32.4 H, MCHC 33.9, Plt Count 116 L, MPV 10.1, Immature Gran % (Auto) 0.500, Neut % (Auto) 69.8, Lymph % (Auto) 18.9 L, Nicholas % (Auto) 9.4, Eos % (Auto) 1.1, Baso % (Auto) 0.3, Absolute Neuts (auto) 4.4, Nucleated RBC % 0, Sodium 140, Potassium 3.8, Chloride 109 H, Carbon Dioxide 21.5, Anion Gap 9, BUN 11, Creatinine 0.69 L, Est GFR (MDRD) Non-Af 93, BUN/Creatinine Ratio 16.2, Glucose 98, Calcium 8.6 Rhythm: EKG: ECHO: Stress Test: Cardiac Cath: PCI: CT Surgery: Holter monitor: EPS: PPM: CXR: Chest CT Scan: Radiography Diagnostic Testing: Radiology Impression Chest X-Ray 03/28/25 15:10 IMPRESSION: Cardiomegaly with mild congestion. Reading Location: [facility] 03/29/25 1547 <Electronically signed by Jimi Flores MD> Cosigner Signature (if applicable): CC: Dr. Khushboo Dudley MD~ Signed ADDENDUM by Dr. Jimi Flores MD on 03/29/25 at 1548 Visit Charges Inpatient E&M: 59591 Init Hosp L3 03/29/25 1548<Electronically signed by Jimi Flores MD> Cosigner Signature (if applicable): cc: Dr. Khushboo Dudley MD ~* Signed [facility] Work Phone: 1(728) 168-520306-14-2025 Progress note Author Loren [facility] claude [facility] Note Date/Time March 29, 2025 1:56 pm [facility] Medical Records Department [address] [place] [address] Progress Note 03/29/25 1344 MR#: [id number] Acct: [id number] Name: GUMARO CARRASQUILLO Rep #:[id number] : 1955 70 From: Loren De Souza MD PCP: Dr. Khushboo Dudley MD Status:ADM IN Location: [place] [address] Subjective Subjective Patient seen and examined. She had no complaints today. She did have some mildchest pain overnight. Review of symptoms otherwise negative. Her , granddaughter and granddaughter significant other by bedside. Review of systemsotherwise negative. Objective Data Objective Data Vital Signs: Vital Signs Temp Pulse Resp BP Pulse Ox O2 Del Method 99.0 F 57 L 16 133/70 H 98 Room Air 03/29/25 08:09 03/29/25 08:09 03/29/25 08:09 03/29/25 08:09 03/29/25 08:42 03/29/25 08:42 Oxygen Delivery Method Room Air Weight: 222 lb 14.197 oz Body Mass Index (BMI) 37.0 Lab / Micro Data 03/29/25 05:15 03/29/25 05:15 Labs: Laboratory Results - last 24 hr 03/28/25 14:53: PT 13.3, INR 1.0, APTT 26.6, Sodium 140, Potassium 3.7, [id number], Carbon Dioxide 22.0, Anion Gap 11, BUN 13, Creatinine 0.89, Estim Creat Clear Calc 68.48, Est GFR (MDRD) Non-Af 69, BUN/Creatinine Ratio 14.6, Glucose 122 H, Calcium 8.9, Troponin T High Sens 8, Triglycerides 54, Cholesterol 166, LDL Cholesterol, Calc 100, VLDL Cholesterol 11, HDL Cholesterol 56, Cholesterol/HDL Ratio 2.98 03/28/25 15:16: Hemoglobin A1c 5.8 H 03/28/25 16:52: Troponin T Hi Sens 2 Hr 9 03/28/25 19:05: Troponin T Hi Sens 4Hr 9 03/28/25 : WBC 6.7, RBC 3.86 L, Hgb 12.6, Hct 37.2, MCV 96.4, MCH 32.6 H, MCHC 33.9, RDW Std Deviation 44.6 H, RDW Coeff of Daryl 12.7, Plt Count 123 L, MPV 9.7,Immature Gran % (Auto) 0.600, Neut % (Auto) 72.2 H, Lymph % (Auto) 16.3 L, Nicholas % (Auto) 9.9, Eos % (Auto) 0.6, Baso % (Auto) 0.4, Absolute Neuts (auto) 4.8, Absolute Lymphs (auto) 1.09, Nucleated RBC % 0 03/29/25 05:15: WBC 6.4, RBC 3.55 L, Hgb 11.5 L, Hct 33.9 L, MCV 95.5, MCH 32.4 H, MCHC 33.9, RDW Std Deviation 44.3 H, RDW Coeff of Daryl 12.7, Plt Count 116 L, MPV 10.1, Immature Gran % (Auto) 0.500, Neut % (Auto) 69.8, Lymph % (Auto) 18.9 L, Nicholas % (Auto) 9.4, Eos % (Auto) 1.1, Baso % (Auto) 0.3, Absolute Neuts (auto)4.4, Absolute Lymphs (auto) 1.20, Nucleated RBC % 0, Sodium 140, Potassium 3.8, Chloride 109 H, Carbon Dioxide 21.5, Anion Gap 9, BUN 11, Creatinine 0.69 L, Estim Creat Clear Calc 76.00, Est GFR (MDRD) Non-Af 93, BUN/Creatinine Ratio 16.2, Glucose 98, Calcium 8.6 Radiography Diagnostic Testing: Radiology Impression Chest X-Ray 03/28/25 15:10 IMPRESSION: Cardiomegaly with mild congestion. Reading Location: [facility] Echocardiogram 03/29/25 05:55 Interpretation Summary The LV ejection fraction is 50 %. Left ventricular systolic function is lower limits of normal. possible Mild hypokinesis of the apical anterior septal wall The left atrium is mildly dilated The aortic root is mildly dilated at 3.8 cm Mild to moderate (1-2+) tricuspid valve insufficiency. Mild-Moderate (1-2+) mitral valve insufficiency. Ordering Physician: Loren De Souza Referring Physician: Khushboo Dudley Performed By: Savannah Noble RDCS Physical Exam Const alert, oriented x3 and no apparent distress General Appearance: cooperative HEENT normocephalic, head/scalp atraumatic, hearing grossly normal bilaterally and moist oral mucous membranes Eyes EOMs intact bilaterally and conjunctivae normal Neck supple and no JVD Lymph Lymphatic: no lymphedema noted Resp normal respiratory effort, normal air movement, no use of accessory muscles and clear to auscultation bilaterally Cardio regular rate, regular rhythm, S1 normal heart sound, S2 normal heart sound and no murmurs GI normal to inspection, nondistended, normoactive bowel sounds, soft to palpation and non-tender Extremity normal to inspection, full ROM, normal capillary refill and no clubbing, cyanosis or edema General Extremity: no tenderness to palpation of joints or extremities Skin General Skin Exam: no breakdown Neuro oriented x3, moves all extremities and no focal motor deficits Sensorium / Orientation: awake and alert Motor Exam: strength 5/5 throughout Psych thought process normal, cooperative and affect normal Appearance: appropriate Assessment & Plan Assessment/Plan (1) CAD (coronary artery disease): (2) Chest pain: PLAN: Plan #Chest pain in the setting of abnormal stress test * Patient has been having exertional chest pain for about a year which gradually worsened recently so she had an outpatient stress test yesterday which was abnormal. It showed mild perfusion reduced in the anterior wall post pharmacological stress suggestive of anterior wall ischemia with EF of 70%. * Troponins x 3 were not elevated. EKG showed new right bundle branch block * On aspirin and high intensity statin. On metoprolol. * Cardiology on board. For cardiac cath on Monday. * 2D echo showed normal left ventricular wall thickness and EF of 50% with possible mild hypokinesis of the apical anterior septal * #Hypertension: On losartan #Hypothyroidism: On Synthroid Class II obesity: BMI is 37.1. Complicates acute care, expected recovery and prognosis. DVT prophylaxis: lovenox Charges/Coding Visit Charges Inpatient E&M: 67672 Subs Hosp L2 03/29/25 1356 <Electronically signed by Loren De Souza MD> Loren De Souza MD Cosigner Signature (if applicable): CC: ~ Signed [facility] Work Phone: [phone]) [phone] Consult note [facility] Medical Records Department [address] [place] [address] Consultation - Cardiology 03/29/25 1017 MR#: [id number] Acct: [id number] Name: GUMARO CARRASQUILLO Rep #:[id number] : 1955 70 From: Jimi Flores MD PCP: Dr. Khushboo Dudley MD Status:ADM IN Location: [place] [address] Assessment & Plan Assessment/Plan (1) CAD (coronary artery disease): (2) Chest pain: (3) Abnormal stress test: PLAN: Plan 1. Chest pain in the setting of an abnormal stress test - reversible defect in the anterior myocardium.. The plan will be to proceed with a left heart catheterization given her symptoms. If she has further episodes of chest pain we will plan for possible left heart cath tomorrow. Echocardiogram hasbeen ordered results are pending. Will Trend platelets they appear to be trending downwards, if they trend to less than 50,000 we will have to hold off left heartcath. 2. Hypertension 3. Hypothyroidism #4 thrombocytopenia HPI Consult Data Date of Consult: 03/29/25 HPI Narrative Reason for Consultation: chest pain HPI Narrative: GUMARO CARRASQUILLO, is a 70 F who presents to the ER with chest pain. She reportsthat she has had chest pains for couple months on and off about 5/10 in intensity substernal nonradiating for which she was ordered a stress test. Her stress test was done which showed ischemia in LAD territory, and the plan was anelective heart catheterization. However she woke up yesterday morning with chest pain reports it was again substernal 5/10 in intensity lasted a few minutes. And so she came to the ER. She has since had a few more brief episodes however no chest pains at this time. Echocardiogram is pending. She denies fever, chills, orthopnea, PND, loss of consciousness, diarrhea, constipation. Her high-sensitivity troponins have been within normal limits. [facility] Medical History (Updated 03/28/25 @ 23:[address] Davey Bsoch, DO) Diverticulosis Chest pain Vaginal vault prolapse Cystocele, midline Wears glasses Bladder disease Anemia Restless legs History of diverticulosis History of IBS Heartburn Former smoker History of edema History of stress test Fibromyalgia Diverticulosis HTN (hypertension) Hypothyroidism Diarrhea Epigastric pain Home Medications ?Medication ?Instructions ?Recorded ?Last Taken ?Type atenolol 50 mg tablet 50 mg PO BID hypertension 03/28/25 07:00 History 50 mg calcium carbonate 600 mg PO DAILY supplement 0 01/04/18 Unknown History levothyroxine 75 mcg tablet 75 mcg PO DAILY hypothyroi d 01/04/18 03/28/25 07:00 History 75 mcg conjugated estrogens 0.625 mg/gram 0.625 mg vaginal .Q 3DAYS prevention 06/28/22 Unknown History vaginal cream (Premarin) triamcinolone acetonide 0.5 % 1 applic topical DAILY P RN PRN 06/28/22 Unknown History topical cream ECZEMA docusate sodium 50 mg capsule 100 mg PO PRN constipati on 03/28/25 Unknown History (Colace Clear) losartan 50 mg tablet 50 mg PO DAILY hypertension 03/28/25 03/28/25 08:00 History 50 mg multivitamin with minerals-folic 1 tab PO DAILY supple ment 03/28/25 03/28/25 07:00 History acid 0.4 mg tablet (One Daily 1 TAB Womens 50 Plus) ondansetron HCl 4 mg tablet 4 mg PO Q8H PRN PRN nausea and 03/28/25 Unknown History vomiting Allergy/AdvReac Type Severity Reaction Status Date / Time cefaclor (From [facility]) Allergy Hives Verified 03/28/25 14:25 latex Allergy Rash Verified 03/28/25 14:25 Family History Mother Cancer lung Diabetes Colon polyps Father Hypertension Brother Diabetes Colon polyps Surgical History History of bladder suspension procedure History of esophagogastroduodenoscopy (EGD) Status post hysteroscopic myomectomy Infected cyst of Bartholin's gland duct Status post lymph node biopsy S/P cataract extraction S/P hysterectomy S/P rotator cuff repair H/O section S/P colonoscopy S/P laparoscopic cholecystectomy Status post dilation and curettage Social History Smoking Status: Former smoker Physical Exam Const Constitutional Narrative: General?alert oriented HEENT- normal extraocular movements Neck supple no JVD Cardiovascular- normal S1-S2, no murmurs Pulmonary- clear to auscultation bilaterally Abdomen- soft to palpation, normal sounds Extremities- no edema Musculoskeletal- no tenderness no swelling Neurological -alert oriented Psych -normal affect Risk Stratification Risk Stratification Applicable: No Objective Data Vital Signs: Vital Signs Temp Pulse Resp BP Pulse Ox O2 Del Method 99.0 F 57 L 16 133/70 H 98 Room Air 03/29/25 08:09 03/29/25 08:09 03/29/25 08:09 03/29/25 08:09 03/29/25 08:42 03/29/25 08:42 Oxygen Delivery Method Room Air Weight: 222 lb 14.197 oz Body Mass Index (BMI) 37.0 Lab / Micro Data 03/29/25 05:15 03/29/25 05:15 Labs: Laboratory Results - last 24 hr 03/28/25 14:53: PT 13.3, INR 1.0, APTT 26.6, Sodium 140, Potassium 3.7, Szdbmkam451, Carbon Ctykxer18.0, Anion Gap 11, BUN 13, Creatinine 0.89, Estim Creat Clear Calc 68.48, Est GFR (MDRD) Non-Af 69, BUN/Creatinine Ratio 14.6, Glucose 122 H, Calcium 8.9, Troponin T High Sens 8, Triglycerides 54, Ch olesterol 166, LDL Cholesterol, Calc 100, VLDL Cholesterol 11, HDL Cholesterol 56, Cholesterol/HDL Ratio 2.98 03/28/25 15:16: Hemoglobin A1c 5.8 H 03/28/25 16:52: Troponin T Hi Sens 2 Hr 9 03/28/25 19:05: Troponin T Hi Sens 4Hr 9 03/28/25 : WBC 6.7, RBC 3.86 L, Hgb 12.6, Hct 37.2, MCV 96.4, MCH 32.6 H, MCHC 33.9, RDW Std Deviation 44.6 H, RDW Coeff of Daryl 12.7, Plt Count 123 L, MPV 9.7,Immature Gran % (Auto) 0.600, Neut % (Auto) 72.2 H, Lymph % (Auto) 16.3 L, Nicholas % (Auto) 9.9, Eos % (Auto) 0.6, Baso % (Auto) 0.4, Absolute Neuts (auto) 4.8, Absolute Lymphs (auto) 1.09, Nucleated RBC % 0 03/29/25 05:15: WBC 6.4, RBC 3.55 L, Hgb 11.5 L, Hct 33.9 L, MCV 95.5, MCH 32.4 H, MCHC 33.9, RDW Std Deviation 44.3 H, RDW Coeff of Daryl 12.7, Plt Count 116 L, MPV 10.1, Immature Gran % (Auto) 0.500,Neut % (Auto) 69.8, Lymph % (Auto) 18.9 L, Nicholas % (Auto) 9.4, Eos % (Auto) 1.1, Baso % (Auto) 0.3, Absolute Neuts (auto)4.4, Absolute Lymphs (auto) 1.20, Nucleated RBC % 0, Sodium 140, Potassium 3.8,Chloride 109 H, Carbon Dioxide 21.5, Anion Gap 9, BUN 11, Creatinine 0.69 L, Estim Creat Clear Calc76.00, Est GFR (MDRD) Non-Af 93, BUN/Creatinine Ratio 16.2, Glucose 98, Calcium 8.6 Cardiology Labs/Tests 03/28/25 14:53: PT 13.3, INR 1.0, APTT 26.6, Sodium 140, Potassium 3.7, [id number], Carbon Ialgtbt96.0, Anion Gap 11, BUN 13, Creatinine 0.89, Est GFR (MDRD) Non-Af 69, BUN/Creatinine Ratio 14.6, Glucose 122 H, Calcium 8.9, Triglycerides 54, Cholesterol 166, VLDL Cholesterol 11, HDL Cholesterol 56, Cholesterol/HDL Ratio 2.98 03/28/25 15:16: Hemoglobin A1c 5.8 H 03/28/25 : WBC 6.7, RBC 3.86 L, Hgb 12.6, Hct 37.2, MCV 96.4, MCH 32.6 H, MCHC 33.9, Plt Count 123 L, MPV 9.7, Immature Gran % (Auto) 0.600, Neut % (Auto) 72.2H, Lymph % (Auto) 16.3 L, Nicholas % (Auto) 9.9, Eos % (Auto) 0.6, Baso % (Auto) 0.4, Absolute Neuts (auto) 4.8, Nucleated RBC % 0 03/29/25 05:15: WBC 6.4, RBC 3.55 L, Hgb 11.5 L, Hct 33.9 L, MCV 95.5, MCH 32.4 H, MCHC 33.9, Plt Count 116 L, MPV 10.1, Immature Gran % (Auto) 0.500, Neut % (Auto) 69.8, Lymph % (Auto) 18.9 L, Nicholas % (Auto) 9.4, Eos % (Auto) 1.1, Baso % (Auto) 0.3, Absolute Neuts (auto) 4.4, Nucleated RBC % 0, Sodium 140, Potassium 3.8, Chloride 109 H, Carbon Dioxide 21.5, Anion Gap 9, BUN 11, Creatinine 0.69 L,Est GFR (MDRD) Non-Af 93, BUN/Creatinine Ratio 16.2, Glucose 98, Calcium 8.6 Rhythm: EKG: ECHO: Stress Test: Cardiac Cath: PCI: CT Surgery: Holter monitor: EPS: PPM: CXR: Chest CT Scan: Radiography Diagnostic Testing: Radiology Impression Chest X-Ray 03/28/25 15:10 IMPRESSION: Cardiomegaly with mild congestion. Reading Location: [facility] 03/29/25 1547 Cosigner Signature (if applicable): CC: Dr. Khushboo Dudley MD~ Signed ADDENDUM by Dr. Jimi Flores MD on 03/29/25 at 1548 Visit Charges Inpatient E&M: 46587 Init Hosp L3 03/29/25 1548 Cosigner Signature (if applicable): cc: Dr. Khushboo Dudley MD ~* Signed [facility]06-14-2025 Progress note [facility] Medical Records Department [address] [place] [address] Progress Note 03/29/25 1344 MR#: [id number] Acct: [id number] Name: GUMARO CARRASQUILLO Rep #:[id number] : 1955 70 From: Loren De Souza MD PCP: Dr. Khushboo Dudley MD Status:ADM IN Location: [place] [address] Subjective Subjective Patient seen and examined. She had no complaints today. She did have some mildchest pain overnight.Review of symptoms otherwise negative. Her , granddaughter and granddaughter significant other by bedside. Review of systemsotherwise negative. Objective Data Objective Data Vital Signs: Vital Signs Temp Pulse Resp BP Pulse Ox O2 Del Method 99.0 F 57 L 16 133/70 H 98 Room Air 03/29/25 08:09 03/29/25 08:09 03/29/25 08:09 03/29/25 08:09 03/29/25 08:42 03/29/25 08:42 Oxygen Delivery Method Room Air Weight: 222 lb 14.197 oz Body Mass Index (BMI) 37.0 Lab / Micro Data 03/29/25 05:15 03/29/25 05:15 Labs: Laboratory Results - last 24 hr 03/28/25 14:53: PT 13.3, INR 1.0, APTT 26.6, Sodium 140, Potassium 3.7, Ipewwywu812, Carbon Fujvlml90.0, Anion Gap 11, BUN 13, Creatinine 0.89, Estim Creat Clear Calc 68.48, Est GFR (MDRD) Non-Af 69, BUN/Creatinine Ratio 14.6, Glucose 122 H, Calcium 8.9, Troponin T High Sens 8, Triglycerides 54, Ch olesterol 166, LDL Cholesterol, Calc 100, VLDL Cholesterol 11, HDL Cholesterol 56, Cholesterol/HDL Ratio 2.98 03/28/25 15:16: Hemoglobin A1c 5.8 H 03/28/25 16:52: Troponin T Hi Sens 2 Hr 9 03/28/25 19:05: Troponin T Hi Sens 4Hr 9 03/28/25 : WBC 6.7, RBC 3.86 L, Hgb 12.6, Hct 37.2, MCV 96.4, MCH 32.6 H, MCHC 33.9, RDW Std Deviation 44.6 H, RDW Coeff of Daryl 12.7, Plt Count 123 L, MPV 9.7,Immature Gran % (Auto) 0.600, Neut % (Auto) 72.2 H, Lymph % (Auto) 16.3 L, Nicholas % (Auto) 9.9, Eos % (Auto) 0.6, Baso % (Auto) 0.4, Absolute Neuts (auto) 4.8, Absolute Lymphs (auto) 1.09, Nucleated RBC % 0 03/29/25 05:15: WBC 6.4, RBC 3.55 L, Hgb 11.5 L, Hct 33.9 L, MCV 95.5, MCH 32.4 H, MCHC 33.9, RDW Std Deviation 44.3 H, RDW Coeff of Daryl 12.7, Plt Count 116 L, MPV 10.1, Immature Gran % (Auto) 0.500,Neut % (Auto) 69.8, Lymph % (Auto) 18.9 L, Nicholas % (Auto) 9.4, Eos % (Auto) 1.1, Baso % (Auto) 0.3, Absolute Neuts (auto)4.4, Absolute Lymphs (auto) 1.20, Nucleated RBC % 0, Sodium 140, Potassium 3.8,Chloride 109 H, Carbon Dioxide 21.5, Anion Gap 9, BUN 11, Creatinine 0.69 L, Estim Creat Clear Calc76.00, Est GFR (MDRD) Non-Af 93, BUN/Creatinine Ratio 16.2, Glucose 98, Calcium 8.6 Radiography Diagnostic Testing: Radiology Impression Chest X-Ray 03/28/25 15:10 IMPRESSION: Cardiomegaly with mild congestion. Reading Location: [facility] Echocardiogram 03/29/25 05:55 Interpretation Summary The LV ejection fraction is 50 %. Left ventricular systolic function is lower limits of normal. possible Mild hypokinesis of the apical anterior septal wall The left atrium is mildly dilated The aortic root is mildly dilated at 3.8 cm Mild to moderate (1-2+) tricuspid valve insufficiency. Mild-Moderate (1-2+) mitral valve insufficiency. Ordering Physician: Loren De Souza Referring Physician: Khushboo Dudley Performed By: Savannah Noble RDCS Physical Exam Const alert, oriented x3 and no apparent distress General Appearance: cooperative HEENT normocephalic, head/scalp atraumatic, hearing grossly normal bilaterally and moist oral mucous membranes Eyes EOMs intact bilaterally and conjunctivae normal Neck supple and no JVD Lymph Lymphatic: no lymphedema noted Resp normal respiratory effort, normal air movement, no use of accessory muscles and clear to auscultation bilaterally Cardio regular rate, regular rhythm, S1 normal heart sound, S2 normal heart sound and no murmurs GI normal to inspection, nondistended, normoactive bowel sounds, soft to palpation and non-tender Extremity normal to inspection, full ROM, normal capillary refill and no clubbing, cyanosis or edema General Extremity: no tenderness to palpation of joints or extremities Skin General Skin Exam: no breakdown Neuro oriented x3, moves all extremities and no focal motor deficits Sensorium / Orientation: awake and alert Motor Exam: strength 5/5 throughout Psych thought process normal, cooperative and affect normal Appearance: appropriate Assessment & Plan Assessment/Plan (1) CAD (coronary artery disease): (2) Chest pain: PLAN: Plan #Chest pain in the setting of abnormal stress test * Patient has been having exertional chest pain for about a year which gradually worsened recently so she had an outpatient stress test yesterday which was abnormal. It showed mild perfusion reduced in the anterior wall post pharmacological stress suggestive of anterior wall ischemia with EF of 70%. * Troponins x 3 were not elevated. EKG showed new right bundle branch block * On aspirin and high intensity statin. On metoprolol. * Cardiology on board. For cardiac cath on Monday. * 2D echo showed normal left ventricular wall thickness and EF of 50% with possible mild hypokinesis of the apical anterior septal * #Hypertension: On losartan #Hypothyroidism: On Synthroid Class II obesity: BMI is 37.1. Complicates acute care, expected recovery and prognosis. DVT prophylaxis: lovenox Charges/Coding Visit Charges Inpatient E&M: 35644 Subs Hosp L2 03/29/25 6246 Loren De Souza MD Cosigner Signature (if applicable): CC: ~ Signed [facility]06-14-2025 Discharge summary Author Davey Bosch [facility] Note Date/Time March 28, 2025 11:1 0pm [facility] Medical Records Department [address] [place] [address] Emergency Department Summary 03/28/25 MR#: [id number] Acct: [id number] Name: GUMARO CARRASQUILLO Rep #[id number] : 1955 70 From: Davey Ross PCP: Dr. Khushboo Dudley MD Status:ADM IN Location: [place] [id number] HPI History of Present Illness Chief Complaint: Chest Pain Informant: patient and spouse/S.O. Narrative Narrative: Recurrent chest heaviness waking her 6 AM this morning is a lot heavier and worse this morning so down to a 3 new symptoms of nausea. No dyspnea no radicular symptoms no arm weakness. She states been having on and off symptoms for past years been more frequent saw her PCP and outpatient stress test yesterday here. She is called today states there were some abnormalities to theanterior wall and she is being referred to cardiology. PCP did not know if her chest symptoms today. Hypertension hyperlipidemia. Denies diabetes denies family history of MIs at young age. Remote tobacco. Does not take chronic aspirin. Currently nausea subsided. Discussion I saw her EKG showed that she has a known left bundle branch block from 2018. Prior Similar Symptoms: Yes CVD Risk Factors: Positive for Hypertension and Hypercholesterolemia; Negative for Diabetes, Family History 1' </=55 or Smoking PE Risk Factors: Negative for Recent Travel/Surgery, Recent Immobilization, Prior DVT or PE, Cancer or OCP + Smoking + >/=35 PFSH PFSH Medical History (Updated 03/28/25 @ 23:[address] Davey Bosch, DO) Diverticulosis Chest pain Vaginal vault prolapse Cystocele, midline Wears glasses Bladder disease Anemia Restless legs History of diverticulosis History of IBS Heartburn Former smoker History of edema History of stress test Fibromyalgia Diverticulosis HTN (hypertension) Hypothyroidism Diarrhea Epigastric pain Home Medications ?Medication ?Instructions ?Recorded ?Last Taken ?Type atenolol 50 mg tablet 50 mg PO BID hypertension 03/28/25 07:00 History 50 mg calcium carbonate 600 mg PO DAILY supplement 0 01/04/18 Unknown History levothyroxine 75 mcg tablet 75 mcg PO DAILY hypothyroi d 01/04/18 03/28/25 07:00 History 75 mcg conjugated estrogens 0.625 mg/gram 0.625 mg vaginal .Q 3DAYS prevention 06/28/22 Unknown History vaginal cream (Premarin) triamcinolone acetonide 0.5 % 1 applic topical DAILY P RN PRN 06/28/22 Unknown History topical cream ECZEMA docusate sodium 50 mg capsule 100 mg PO PRN constipati on 03/28/25 Unknown History (Colace Clear) losartan 50 mg tablet 50 mg PO DAILY hypertension 03/28/25 03/28/25 08:00 History 50 mg multivitamin with minerals-folic 1 tab PO DAILY supple ment 03/28/25 03/28/25 07:00 History acid 0.4 mg tablet (One Daily 1 TAB Womens 50 Plus) ondansetron HCl 4 mg tablet 4 mg PO Q8H PRN PRN nausea and 03/28/25 Unknown History vomiting Allergy/AdvReac Type Severity Reaction Status Date / Time cefaclor (From [facility]) Allergy Hives Verified 03/28/25 14:25 latex Allergy Rash Verified 03/28/25 14:25 Family History Mother Cancer lung Diabetes Colon polyps Father Hypertension Brother Diabetes Colon polyps Surgical History History of bladder suspension procedure History of esophagogastroduodenoscopy (EGD) Status post hysteroscopic myomectomy Infected cyst of Bartholin's gland duct Status post lymph node biopsy S/P cataract extraction S/P hysterectomy S/P rotator cuff repair H/O section S/P colonoscopy S/P laparoscopic cholecystectomy Status post dilation and curettage Social History Smoking Status: Former smoker ROS ROS ED Constitutional Constitutional ED: Denies chills, fever(s) or sweats ENT ENT ED: Denies sore throat Cardiovascular Cardiovascular: Reports chest pain; Denies leg edema, palpitations or racing heartbeat Respiratory/Chest Respiratory/Chest: Denies cough, dyspnea or dyspnea on exertion Gastrointestinal Gastrointestinal: Reports nausea; Denies abdominal pain, diarrhea or vomiting Genitourinary Genitourinary ED: Denies dysuria, hematuria or urinary frequency Musculoskeletal Musculoskeletal: Denies back pain, extremity pain or neck pain Integumentary Denies rash or wounds Neurologic Neurologic: Denies headache(s), paresthesias or weakness EXAM Physical Exam Const Vital Signs: 03/28/25 14:23 03/28/25 14:59 03/28/25 15:02 Temperature 98 F Temperature Source Oral Pulse Rate 98 56 L Respiratory Rate 16 Respiratory Effort Respiratory Pattern Blood Pressure 166/71 H 156/96 H Blood Pressure Mean 102 Pulse Ox 98 Oxygen Delivery Method Room Air Room Air 03/28/25 15:02 03/28/25 15:38 03/28/25 15:45 Temperature Temperature Source Pulse Rate 58 L 56 L Respiratory Rate 14 16 Respiratory Effort Normal Respiratory Pattern Normal Blood Pressure Blood Pressure Mean Pulse Ox 100 100 Oxygen Delivery Method 03/28/25 15:55 03/28/25 16:00 03/28/25 16:00 Temperature Temperature Source Pulse Rate 54 L 56 L 57 L Respiratory Rate 16 15 Respiratory Effort Respiratory Pattern Blood Pressure 129/73 H 131/72 H 131/72 H Blood Pressure Mean 91 90 Pulse Ox 100 99 Oxygen Delivery Method Room Air Room Air 03/28/25 16:05 03/28/25 16:10 03/28/25 16:15 Temperature Temperature Source Pulse Rate 52 L 57 L 58 L Respiratory Rate 12 16 17 Respiratory Effort Respiratory Pattern Blood Pressure 125/57 H 118/63 111/66 Blood Pressure Mean 76 78 80 Pulse Ox 100 98 98 Oxygen Delivery Method 03/28/25 16:20 03/28/25 16:25 03/28/25 16:30 Temperature Temperature Source Pulse Rate 57 L 52 L 51 L Respiratory Rate 13 17 20 H Respiratory Effort Respiratory Pattern Blood Pressure 115/62 127/54 H 119/54 L Blood Pressure Mean 77 72 73 Pulse Ox 97 98 98 Oxygen Delivery Method Room Air 03/28/25 16:35 03/28/25 16:40 03/28/25 16:45 Temperature Temperature Source Pulse Rate 52 L 50 L 51 L Respiratory Rate 14 15 14 Respiratory Effort Respiratory Pattern Blood Pressure 113/57 L 120/79 130/59 H Blood Pressure Mean 73 93 81 Pulse Ox 99 99 99 Oxygen Delivery Method 03/28/25 16:50 03/28/25 16:55 03/28/25 17:15 Temperature Temperature Source Pulse Rate 54 L 51 L Respiratory Rate 21 H 18 Respiratory Effort Respiratory Pattern Blood Pressure 122/60 H 127/62 H Blood Pressure Mean 79 81 Pulse Ox 99 100 Oxygen Delivery Method 03/28/25 17:16 03/28/25 17:18 03/28/25 17:23 Temperature Temperature Source Pulse Rate 53 L 52 L 56 L Respiratory Rate 23 H Respiratory Effort Respiratory Pattern Blood Pressure 123/81 H 123/81 H 117/60 Blood Pressure Mean 95 Pulse Ox 98 Oxygen Delivery Method Room Air Positive well nourished and well developed General Appearance ED: well developed and NAD HEENT Reports moist mucous membranes normocephalic and atraumatic Eyes General Eye ED: Yes normal appearance of both eyes Neck full ROM Chest Wall Chest: Negative for tenderness Resp normal respiratory effort and normal air movement Effort and Inspection: symmetric chest movement; Negative for respiratory distress Cardio regular rate, regular rhythm and no murmurs Peripheral Pulses: pulses 2+ throughout GI normal to inspection, nondistended, normoactive bowel sounds and non-tender Palpation: Negative for guarding or rebound tenderness present Extremity normal to inspection General Extremety ED: Negative for edema or tenderness General Extremity: Negative for edema Neuro oriented x3 and no sensory deficits noted Sensorium / Orientation: awake and alert Skin no rashes or lesions noted and no wounds Heart Score History: Moderately Suspicious Age: >/= 65 years Risk Factors: 1 or 2 Risk Factors Troponin: </= Normal Limit Score: 4 MDM MDM MDM Narrative Medical decision making narrative: Interventions / MDM: Differential diagnosis: Angina, chest pain, abnormal stress test Diagnosis considered but do not suspect: N/A My EKG interpretation: Sinus rate of 56, no ST changes.T wave version aVL nonspecific. Left bundle branch block. Patient compared to the July 2021 normal EKG with no left bundle branch block however December 2017 had a left bundlebranch block. Imaging independently reviewed and interpreted by myself: 1 view chest x-ray External documents reviewed: Nuclear stress test from yesterday mild anterior wall ischemic concerns. EF of 70%. Test considered but not ordered:N/A ED course: Patient recurrent chest heaviness worsening today had abnormal stresstest yesterday. Cardiac workup initiated aspirin ordered nitroglycerin sublingual. Patient EKG left bundle branch block that is recurrent from 2018 she had 2 normal EKGs in between. 1425: I spoke with emt/dispatcher Dr. Flores. I discussed the finding states with aleft bundle branch block and 18 this is recurrent. This would not be a STEMI equivalent. Discussed her abnormal nuclear stress test yesterday, we will plan on admission to the hospital for intervention. Agrees with aspirin and nitroglycerin at this time. Discussed if cardiac enzymes are stable will not need to heparinize. 1715: Initial troponin negative. Symptoms mild down to 2. Third nitro being 11. Will order Nitropaste. Delta troponin pending. I will discuss with hospitalist for admission. I discussed with Dr. De Souza for admission. Re-evaluation: stable Disposition discussed with patient/family/significant other: Patient significantother Case discussed with consulting clinician: Cardiology, hospitalist This note was generated with [employer] dictation software. It may contain incorrectwords, spelling, and punctuation that were not noted in checking the note beforesigning. Lab Data Attestation: I reviewed the patient's lab results. Labs: Laboratory Results - last 24 hr 03/28/25 03/28/25 03/28/25 14:53 15:16 16:52 PT 13.3 INR 1.0 APTT 26.6 Sodium 140 Potassium 3.7 Chloride 107 Carbon Dioxide 22.0 Anion Gap 11 BUN 13 Creatinine 0.89 Estim Creat Clear Calc 68.48 Est GFR (MDRD) Non-Af 69 BUN/Creatinine Ratio 14.6 Glucose 122 H Hemoglobin A1c 5.8 H Calcium 8.9 Troponin T High Sens 8 Troponin T Hi Sens 2 Hr 9 Triglycerides 54 Cholesterol 166 LDL Cholesterol, Calc 100 VLDL Cholesterol 11 HDL Cholesterol 56 Cholesterol/HDL Ratio 2.98 Radiography Diagnostic Testing: Clinical Impression(s) from Imaging Studies Chest X-Ray 03/28/25 15:10 IMPRESSION: Cardiomegaly with mild congestion. Reading Location: [facility] Discharge Plan Dx/Rx/DC Orders Clinical Impression: Chest pain, Abnormal stress test, History of hypertension Disposition Disposition: Acute Care Hospital [facility] Discharge Date/Time: 03/28/25 18:19 What to do if you have Problems For any increased pain, shortness of breath, bleeding, nausea or vomiting, chestpain, or any unexpected problems, contact your Primary Care Provider. Call [facility] ([phone]) or report to the closest Emergency Room. Call 911 if necessary. 03/28/25 2310 <Electronically signed by Davey Ross> Cosigner Signature (if applicable): CC: Dr. Khushboo Dudley MD ~ Signed [facility] Work Phone: [phone] Discharge summary [facility] Medical Records Department [address] [place] [address] Emergency Department Summary 03/28/25 MR#: [id number] Acct: [id number] Name: GUMARO CARRASQUILLO Rep #:[id number] : 1955 70 From: Davey Ross PCP: Dr. Khushboo Dudley MD Status:ADM IN Location: [place] [address] HPI History of Present Illness Chief Complaint: Chest Pain Informant: patient and spouse/S.O. Narrative Narrative: Recurrent chest heaviness waking her 6 AM this morning is a lot heavier and worse this morning so down to a 3 new symptoms of nausea. No dyspnea no radicular symptoms no arm weakness. She states beenhaving on and off symptoms for past years been more frequent saw her PCP and outpatient stress test yesterday here. She is called today states there were some abnormalities to theanterior wall and she is being referred to cardiology. PCP did not know if her chest symptoms today. Hypertension hyperlipidemia. Denies diabetes denies family history of MIs at young age. Remote tobacco. Does not take chronic aspirin. Currently nausea subsided. Discussion I saw her EKG showed that she has a known leftbundle branch block from 2018. Prior Similar Symptoms: Yes CVD Risk Factors: Positive for Hypertension and Hypercholesterolemia; Negative for Diabetes, FamilyHistory 1' PE Risk Factors: Negative for Recent Travel/Surgery, Recent Immobilization, Prior DVT orPE, Cancer or OCP + Smoking + >/=35 PFSH PFSH Medical History (Updated 03/28/25 @ 23:[address] Davey Bosch, DO) Diverticulosis Chest pain Vaginal vault prolapse Cystocele, midline Wears glasses Bladder disease Anemia Restless legs History of diverticulosis History of IBS Heartburn Former smoker History of edema History of stress test Fibromyalgia Diverticulosis HTN (hypertension) Hypothyroidism Diarrhea Epigastric pain Home Medications ?Medication ?Instructions ?Recorded ?Last Taken ?Type atenolol 50 mg tablet 50 mg PO BID hypertension 03/28/25 07:00 History 50 mg calcium carbonate 600 mg PO DAILY supplement 0 01/04/18 Unknown History levothyroxine 75 mcg tablet 75 mcg PO DAILY hypothyroi d 01/04/18 03/28/25 07:00 History 75 mcg conjugated estrogens 0.625 mg/gram 0.625 mg vaginal .Q 3DAYS prevention 06/28/22 Unknown History vaginal cream (Premarin) triamcinolone acetonide 0.5 % 1 applic topical DAILY P RN PRN 06/28/22 Unknown History topical cream ECZEMA docusate sodium 50 mg capsule 100 mg PO PRN constipati on 03/28/25 Unknown History (Colace Clear) losartan 50 mg tablet 50 mg PO DAILY hypertension 03/28/25 03/28/25 08:00 History 50 mg multivitamin with minerals-folic 1 tab PO DAILY supple ment 03/28/25 03/28/25 07:00 History acid 0.4 mg tablet (One Daily 1 TAB Womens 50 Plus) ondansetron HCl 4 mg tablet 4 mg PO Q8H PRN PRN nausea and 03/28/25 Unknown History vomiting Allergy/AdvReac Type Severity Reaction Status Date / Time cefaclor (From [facility]) Allergy Hives Verified 03/28/25 14:25 latex Allergy Rash Verified 03/28/25 14:25 Family History Mother Cancer lung Diabetes Colon polyps Father Hypertension Brother Diabetes Colon polyps Surgical History History of bladder suspension procedure History of esophagogastroduodenoscopy (EGD) Status post hysteroscopic myomectomy Infected cyst of Bartholin's gland duct Status post lymph node biopsy S/P cataract extraction S/P hysterectomy S/P rotator cuff repair H/O section S/P colonoscopy S/P laparoscopic cholecystectomy Status post dilation and curettage Social History Smoking Status: Former smoker ROS ROS ED Constitutional Constitutional ED: Denies chills, fever(s) or sweats ENT ENT ED: Denies sore throat Cardiovascular Cardiovascular: Reports chest pain; Denies leg edema, palpitations or racing heartbeat Respiratory/Chest Respiratory/Chest: Denies cough, dyspnea or dyspnea on exertion Gastrointestinal Gastrointestinal: Reports nausea; Denies abdominal pain, diarrhea or vomiting Genitourinary Genitourinary ED: Denies dysuria, hematuria or urinary frequency Musculoskeletal Musculoskeletal: Denies back pain, extremity pain or neck pain Integumentary Denies rash or wounds Neurologic Neurologic: Denies headache(s), paresthesias or weakness EXAM Physical Exam Const Vital Signs: 03/28/25 14:23 03/28/25 14:59 03/28/25 15:02 Temperature 98 F Temperature Source Oral Pulse Rate 98 56 L Respiratory Rate 16 Respiratory Effort Respiratory Pattern Blood Pressure 166/71 H 156/96 H Blood Pressure Mean 102 Pulse Ox 98 Oxygen Delivery Method Room Air Room Air 03/28/25 15:02 03/28/25 15:38 03/28/25 15:45 Temperature Temperature Source Pulse Rate 58 L 56 L Respiratory Rate 14 16 Respiratory Effort Normal Respiratory Pattern Normal Blood Pressure Blood Pressure Mean Pulse Ox 100 100 Oxygen Delivery Method 03/28/25 15:55 03/28/25 16:00 03/28/25 16:00 Temperature Temperature Source Pulse Rate 54 L 56 L 57 L Respiratory Rate 16 15 Respiratory Effort Respiratory Pattern Blood Pressure 129/73 H 131/72 H 131/72 H Blood Pressure Mean 91 90 Pulse Ox 100 99 Oxygen Delivery Method Room Air Room Air 03/28/25 16:05 03/28/25 16:10 03/28/25 16:15 Temperature Temperature Source Pulse Rate 52 L 57 L 58 L Respiratory Rate 12 16 17 Respiratory Effort Respiratory Pattern Blood Pressure 125/57 H 118/63 111/66 Blood Pressure Mean 76 78 80 Pulse Ox 100 98 98 Oxygen Delivery Method 03/28/25 16:20 03/28/25 16:25 03/28/25 16:30 Temperature Temperature Source Pulse Rate 57 L 52 L 51 L Respiratory Rate 13 17 20 H Respiratory Effort Respiratory Pattern Blood Pressure 115/62 127/54 H 119/54 L Blood Pressure Mean 77 72 73 Pulse Ox 97 98 98 Oxygen Delivery Method Room Air 03/28/25 16:35 03/28/25 16:40 03/28/25 16:45 Temperature Temperature Source Pulse Rate 52 L 50 L 51 L Respiratory Rate 14 15 14 Respiratory Effort Respiratory Pattern Blood Pressure 113/57 L 120/79 130/59 H Blood Pressure Mean 73 93 81 Pulse Ox 99 99 99 Oxygen Delivery Method 03/28/25 16:50 03/28/25 16:55 03/28/25 17:15 Temperature Temperature Source Pulse Rate 54 L 51 L Respiratory Rate 21 H 18 Respiratory Effort Respiratory Pattern Blood Pressure 122/60 H 127/62 H Blood Pressure Mean 79 81 Pulse Ox 99 100 Oxygen Delivery Method 03/28/25 17:16 03/28/25 17:18 03/28/25 17:23 Temperature Temperature Source Pulse Rate 53 L 52 L 56 L Respiratory Rate 23 H Respiratory Effort Respiratory Pattern Blood Pressure 123/81 H 123/81 H 117/60 Blood Pressure Mean 95 Pulse Ox 98 Oxygen Delivery Method Room Air Positive well nourished and well developed General Appearance ED: well developed and NAD HEENT Reports moist mucous membranes normocephalic and atraumatic Eyes General Eye ED: Yes normal appearance of both eyes Neck full ROM Chest Wall Chest: Negative for tenderness Resp normal respiratory effort and normal air movement Effort and Inspection: symmetric chest movement; Negative for respiratory distress Cardio regular rate, regular rhythm and no murmurs Peripheral Pulses: pulses 2+ throughout GI normal to inspection, nondistended, normoactive bowel sounds and non-tender Palpation: Negative for guarding or rebound tenderness present Extremity normal to inspection General Extremety ED: Negative for edema or tenderness General Extremity: Negative for edema Neuro oriented x3 and no sensory deficits noted Sensorium / Orientation: awake and alert Skin no rashes or lesions noted and no wounds Heart Score History: Moderately Suspicious Age: >/= 65 years Risk Factors: 1 or 2 Risk Factors Troponin: Score: 4 MDM MDM MDM Narrative Medical decision making narrative: Interventions / MDM: Differential diagnosis: Angina, chest pain, abnormal stress test Diagnosis considered but do not suspect: N/A My EKG interpretation: Sinus rate of 56, no ST changes.T wave version aVL nonspecific. Left bundle branch block. Patient compared to the July 2021 normal EKG with no left bundle branch block however December 2017 had a left bundlebranch block. Imaging independently reviewed and interpreted by myself: 1 view chest x-ray External documents reviewed: Nuclear stress test from yesterday mild anterior wall ischemic concerns. EF of 70%. Test considered but not ordered:N/A ED course: Patient recurrent chest heaviness worsening today had abnormal stresstest yesterday. Cardiac workup initiated aspirin ordered nitroglycerin sublingual. Patient EKG left bundle branch block that is recurrent from 2018 she had 2 normal EKGs in between. 1425: I spoke with emt/dispatcher Dr. Flores. I discussed the finding states with aleft bundle branch block and 18 this is recurrent. This would not be a STEMI equivalent. Discussed her abnormal nuclear stress test yesterday, we will plan on admission to the hospital for intervention. Agrees with aspirin and nitroglycerin at this time. Discussed if cardiac enzymes are stable will not need to heparinize. 1715: Initial troponin negative. Symptoms mild down to 2. Third nitro being 11. Will order Nitropaste. Delta troponin pending. I will discuss with hospitalist for admission. I discussed with Dr. De Souza for admission. Re-evaluation: stable Disposition discussed with patient/family/significant other: Patient significantother Case discussed with consulting clinician: Cardiology, hospitalist This note was generated with [employer] dictation software. It may contain incorrectwords, spelling, and punctuation that were not noted in checking the note beforesigning. Lab Data Attestation: I reviewed the patient's lab results. Labs: Laboratory Results - last 24 hr 03/28/25 03/28/25 03/28/25 14:53 15:16 16:52 PT 13.3 INR 1.0 APTT 26.6 Sodium 140 Potassium 3.7 Chloride 107 Carbon Dioxide 22.0 Anion Gap 11 BUN 13 Creatinine 0.89 Estim Creat Clear Calc 68.48 Est GFR (MDRD) Non-Af 69 BUN/Creatinine Ratio 14.6 Glucose 122 H Hemoglobin A1c 5.8 H Calcium 8.9 Troponin T High Sens 8 Troponin T Hi Sens 2 Hr 9 Triglycerides 54 Cholesterol 166 LDL Cholesterol, Calc 100 VLDL Cholesterol 11 HDL Cholesterol 56 Cholesterol/HDL Ratio 2.98 Radiography Diagnostic Testing: Clinical Impression(s) from Imaging Studies Chest X-Ray 03/28/25 15:10 IMPRESSION: Cardiomegaly with mild congestion. Reading Location: [facility] Discharge Plan Dx/Rx/DC Orders Clinical Impression: Chest pain, Abnormal stress test, History of hypertension Disposition Disposition: Acute Care Hospital [facility] Discharge Date/Time: 03/28/25 18:19 What to do if you have Problems For any increased pain, shortness of breath, bleeding, nausea or vomiting, chestpain, or any unexpected problems, contact your Primary Care Provider. Call [facility] ([phone]) or report tothe closest Emergency Room. Call 911 if necessary. 03/28/25 2310 Cosigner Signature (if applicable): CC: Dr. Khushboo Dudley MD ~ Signed [facility]06-13-2025 History and physical note Author Loren [facility] claude [facility] Note Date/Time March 28, 2025 7:05 pm [facility] Medical Records Department [address] [place] [id number] H&P Exam - Hospitalist 03/28/25 1733 MR#: [id number] Acct: [id number] Name: GUMARO CARRASQUILLO Rep #[id number] : 1955 70 From: Loren De Souza MD PCP: Dr. Khushboo Dudley MD Status:ADM IN Location: [facility] [id number] HPI - General General Date of Admission: 03/28/25 Date of Service: 03/28/25 Chief Complaint: shortness of breath HPI Narrative GUMARO CARRASQUILLO, is a 70 F with a PMH as outlined who presents via the ED on 03/28/2025 with a complaint of chest pain which started on the morning of admission, with associated nausea. She denied any shortness of breath. Her symptoms had been recurring for a year, but recently worsened. She had an outpatient stress test yesterday which was abnormal and showd some abnormalitiesto the anterior wall. She was therefore referred to cardiology. However the chest pain recurred this morning. The pain was intensifying so she came into the ED this afternoon. SHe denied any lightheadedness, though she admitted to occasional palpitations, and denied any nausea, vomiting or any other symptoms. Review of systems is otherwise negative Vitals in the ED were blood pressure 117/60, pulse rate of 56, respiratory rate of 23 and pulse ox of 98% on room air. CBC showed wbc of 12.6 with WBC of 6.7 and platelets of 123. INR was 1. Chemistry showed sodium of 140 with potassiumof 3.7 and creatinine of 0.89. Bicarb was 22 and anion gap was 11. Initial troponin was 8. Chest x-ray showed no acute cardiopulmonary pathology. EKG showed a new onset right bundle branch block. This was discussed with cardiology recommended that patient be started on aspirin and high intensity statin and be admitted for cardiac cath on Monday on account of abnormal stress test. [facility] Medical History (Updated 03/28/25 @ 19:[address] Loren De Souza MD) Diverticulosis Chest pain Vaginal vault prolapse Cystocele, midline Wears glasses Bladder disease Anemia Restless legs History of diverticulosis History of IBS Heartburn Former smoker History of edema History of stress test Fibromyalgia Diverticulosis HTN (hypertension) Hypothyroidism Diarrhea Epigastric pain Home Medications ?Medication ?Instructions ?Recorded ?Last Taken ?Type atenolol 50 mg tablet 50 mg PO BID 01/04/18 History calcium carbonate 1,200 mg PO DAILY 01/04/18 U nknown History levothyroxine 75 mcg tablet 75 mcg PO DAILY 01/04/18 U nknown History conjugated estrogens 0.625 mg/gram 0.625 mg vaginal .Q 3DAYS 06/28/22 Unknown History vaginal cream (Premarin) triamcinolone acetonide 0.5 % 1 applic topical DAILY P RN PRN 06/28/22 Unknown History topical cream ECZEMA multivitamin-ferrous 1 tab PO DAILY 08/29/22 Unkn own History fumarate-folic acid 18 mg-400 mcg tablet (Centrum Women) losartan 50 mg tablet 50 mg PO DAILY 03/28/25 Unkn own History ondansetron HCl 4 mg tablet 4 mg PO Q8H PRN PRN nausea and 03/28/25 Unknown History vomiting Allergy/AdvReac Type Severity Reaction Status Date / Time cefaclor (From [facility]) Allergy Hives Verified 03/28/25 14:25 latex Allergy Rash Verified 03/28/25 14:25 Family History Mother Cancer lung Diabetes Colon polyps Father Hypertension Brother Diabetes Colon polyps Surgical History History of bladder suspension procedure History of esophagogastroduodenoscopy (EGD) Status post hysteroscopic myomectomy Infected cyst of Bartholin's gland duct Status post lymph node biopsy S/P cataract extraction S/P hysterectomy S/P rotator cuff repair H/O section S/P colonoscopy S/P laparoscopic cholecystectomy Status post dilation and curettage Social History Smoking Status: Former smoker ROS Constitutional Constitutional: Reports fatigue; Denies anorexia, chills, fever(s), malaise or weakness Eyes Eyes: Denies change in vision ENT HEENT: Denies dysphagia, headache(s) or sore throat Cardiovascular Cardiovascular: Reports chest pain; Denies dyspnea on exertion, edema, lightheadedness, orthopnea, palpitations, paroxysmal nocturnal dyspnea, rapid heart rate or syncope Respiratory/Chest Respiratory/Chest: Denies cough, dyspnea, productive cough, shortness of breath at rest or shortness of breath with exertion Gastrointestinal Gastrointestinal: Denies abdominal pain, constipation, diarrhea, nausea or vomiting Genitourinary Genitourinary: Denies burning urination or dysuria Musculoskeletal Musculoskeletal: Denies back pain Neurologic Neurologic: Denies confusion, dizziness, focal weakness, headache(s), seizures or syncope Psychiatric Psychiatric: Denies anxiety or depression Vital Signs Vital Signs Vital Signs: 03/28/25 14:23 03/28/25 14:59 03/28/25 15:02 Temperature 98 F Temperature Source Oral Pulse Rate 98 56 L Respiratory Rate 16 Respiratory Effort Respiratory Pattern Blood Pressure 166/71 H 156/96 H Blood Pressure Mean 102 Pulse Ox 98 Oxygen Delivery Method Room Air Room Air 03/28/25 15:02 03/28/25 15:38 03/28/25 15:45 Temperature Temperature Source Pulse Rate 58 L 56 L Respiratory Rate 14 16 Respiratory Effort Normal Respiratory Pattern Normal Blood Pressure Blood Pressure Mean Pulse Ox 100 100 Oxygen Delivery Method 03/28/25 15:55 03/28/25 16:00 03/28/25 16:00 Temperature Temperature Source Pulse Rate 54 L 56 L 57 L Respiratory Rate 16 15 Respiratory Effort Respiratory Pattern Blood Pressure 129/73 H 131/72 H 131/72 H Blood Pressure Mean 91 90 Pulse Ox 100 99 Oxygen Delivery Method Room Air Room Air 03/28/25 16:05 03/28/25 16:10 03/28/25 16:15 Temperature Temperature Source Pulse Rate 52 L 57 L 58 L Respiratory Rate 12 16 17 Respiratory Effort Respiratory Pattern Blood Pressure 125/57 H 118/63 111/66 Blood Pressure Mean 76 78 80 Pulse Ox 100 98 98 Oxygen Delivery Method 03/28/25 16:20 03/28/25 16:25 03/28/25 16:30 Temperature Temperature Source Pulse Rate 57 L 52 L 51 L Respiratory Rate 13 17 20 H Respiratory Effort Respiratory Pattern Blood Pressure 115/62 127/54 H 119/54 L Blood Pressure Mean 77 72 73 Pulse Ox 97 98 98 Oxygen Delivery Method Room Air 03/28/25 16:35 03/28/25 16:40 03/28/25 16:45 Temperature Temperature Source Pulse Rate 52 L 50 L 51 L Respiratory Rate 14 15 14 Respiratory Effort Respiratory Pattern Blood Pressure 113/57 L 120/79 130/59 H Blood Pressure Mean 73 93 81 Pulse Ox 99 99 99 Oxygen Delivery Method 03/28/25 16:50 03/28/25 16:55 03/28/25 17:15 Temperature Temperature Source Pulse Rate 54 L 51 L Respiratory Rate 21 H 18 Respiratory Effort Respiratory Pattern Blood Pressure 122/60 H 127/62 H Blood Pressure Mean 79 81 Pulse Ox 99 100 Oxygen Delivery Method 03/28/25 17:16 03/28/25 17:18 03/28/25 17:23 Temperature Temperature Source Pulse Rate 53 L 52 L 56 L Respiratory Rate 23 H Respiratory Effort Respiratory Pattern Blood Pressure 123/81 H 123/81 H 117/60 Blood Pressure Mean 95 Pulse Ox 98 Oxygen Delivery Method Room Air Weight Weight: 223 lb 14.4 oz Body Mass Index (BMI) 37.2 Physical Exam Const alert, oriented x3 and no apparent distress General Appearance: cooperative HEENT normocephalic, head/scalp atraumatic, hearing grossly normal bilaterally, moist oral mucous membranes and oropharynx normal Mouth: oral and palatal mucosa normal Eyes EOMs intact bilaterally and conjunctivae normal Neck supple and no JVD Resp normal respiratory effort, no use of accessory muscles and clear to auscultationbilaterally Cardio regular rate, regular rhythm, S1 normal heart sound, S2 normal heart sound and no murmurs GI normal to inspection, nondistended, normoactive bowel sounds, soft to palpation and non-tender Extremity normal to inspection, full ROM and no clubbing, cyanosis or edema Neuro oriented x3, moves all extremities and no focal motor deficits Sensorium / Orientation: awake and alert Motor Exam: strength 5/5 throughout Psych affect normal Results Lab / Micro Data 03/28/25 Unknown 03/28/25 14:53 Labs: Laboratory Results - last 24 hr 03/28/25 14:53: PT 13.3, INR 1.0, APTT 26.6, Sodium 140, Potassium 3.7, [id number], Carbon Dioxide 22.0, Anion Gap 11, BUN 13, Creatinine 0.89, Estim Creat Clear Calc 68.48, Est GFR (MDRD) Non-Af 69, BUN/Creatinine Ratio 14.6, Glucose 122 H, Calcium 8.9, Troponin T High Sens 8 03/28/25 : WBC 6.7, RBC 3.86 L, Hgb 12.6, Hct 37.2, MCV 96.4, MCH 32.6 H, MCHC 33.9, RDW Std Deviation 44.6 H, RDW Coeff of Daryl 12.7, Plt Count 123 L, MPV 9.7,Immature Gran % (Auto) 0.600, Neut % (Auto) 72.2 H, Lymph % (Auto) 16.3 L, Nicholas % (Auto) 9.9, Eos % (Auto) 0.6, Baso % (Auto) 0.4, Absolute Neuts (auto) 4.8, Absolute Lymphs (auto) 1.09, Nucleated RBC % 0 Imaging Radiology Impression Chest X-Ray 03/28/25 15:10 IMPRESSION: Cardiomegaly with mild congestion. Reading Location: [facility] Assessment & Plan Assessment/Plan (1) CAD (coronary artery disease): (2) Chest pain: PLAN: Plan #Chest pain in the setting of abnormal stress test * Patient has been having exertional chest pain for about a year which gradually worsened recently so she had an outpatient stress test yesterday which was abnormal. It showed mild perfusion reduced in the anterior wall post pharmacological stress suggestive of anterior wall ischemia with EF of 70%. * She was called to come to see cardiology today. She still Having Chest Pain so She Went into the ED. * Initial troponin is negative. I will cycle troponins. EKG showed new right bundle branch block. * Placed on aspirin and high intensity statin. On metoprolol. * Consult cardiology. Patient for cardiac cath Monday. * Get 2D echo. * #Hypertension: On losartan #Hypothyroidism: On Synthroid Class II obesity: BMI is 37.1. Complicates acute care, expected recovery and prognosis. DVT prophylaxis: lovenox CODE STATUS: * Patient counseled extensively about different types of CODE STATUS including full code, DNR CCA and DNR CCA. * Patient elects to be full code. * Total fdrs-ks-rtmh time 16 minutes. Charges/Coding Visit Charges Inpatient E&M: 89585 Init Hosp L2 Procedures Hospitalists Procedures: 54929 Advncd Care Plan 30 Min 03/28/251904 <Electronically signed by Loren De Souza MD> Cosigner Signature (if applicable): CC: Dr. Khushboo Dudley MD; Dr. Loren De Souza MD~ Signed [facility] Work Phone: 1(309) 469-136206-13-2025 Evaluation note* Diagnosis Onset Date Resolution Status Admit Date Abnormal stress test acute March 28, 2025 5:41pm CAD (coronary artery disease) acute March 28, 2025 5:41pm Chest pain acute March 28 5:41pm History of hypertension acute J 2024 5:41pm [facility] Work Phone: 1(943) 232-918806-13-2025 History and physical note [facility] Medical Records Department [address] [facility] [place] [address] H&P Exam - Hospitalist 03/28/25 9986 MR#: [id number] Acct: [id number] Name: GUMARO CARRASQUILLO Rep #:[id number] : 1955 70 From: Loren De Souza MD PCP: Dr. Khushboo Dudley MD Status:ADM IN Location: [place] [address] HPI - General General Date of Admission: 03/28/25 Date of Service: 03/28/25 Chief Complaint: shortness of breath HPI Narrative GUMARO CARRASQUILLO, is a 70 F with a PMH as outlined who presents via the ED on 03/28/2025 with a complaint of chest pain which started on the morning of admission, with associated nausea. She denied any shortness of breath. Her symptoms had been recurring for a year, but recently worsened. She had an outpatient stress test yesterday which was abnormal and showd some abnormalitiesto the anterior wall. She was therefore referred to cardiology. However the chest pain recurred this morning. The pain was intensifying so she came into the ED this afternoon. SHe denied any lightheadedness, though she a dmitted to occasional palpitations, and denied any nausea, vomiting or any other symptoms. Review of systems is otherwise negative Vitals in the ED were blood pressure 117/60, pulse rate of 56, respiratory rate of 23 and pulse ox of 98% on room air. CBC showed wbc of 12.6 with WBC of 6.7 and platelets of 123. INR was 1. Chemistry showed sodium of 140 with potassiumof 3.7 and creatinine of 0.89. Bicarb was 22 and anion gap was 11. Initial troponin was 8. Chest x-ray showed no acute cardiopulmonary pathology. EKG showed a new o nset right bundle branch block. This was discussed with cardiology recommended that patient be started on aspirin and high intensity statin and be admitted for cardiac cath on Monday on account of abnormal stress test. [facility] Medical History (Updated 03/28/25 @ 19:[address] Loren De Souza MD) Diverticulosis Chest pain Vaginal vault prolapse Cystocele, midline Wears glasses Bladder disease Anemia Restless legs History of diverticulosis History of IBS Heartburn Former smoker History of edema History of stress test Fibromyalgia Diverticulosis HTN (hypertension) Hypothyroidism Diarrhea Epigastric pain Home Medications ?Medication ?Instructions ?Recorded ?Last Taken ?Type atenolol 50 mg tablet 50 mg PO BID 01/04/18 History calcium carbonate 1,200 mg PO DAILY 01/04/18 U nknown History levothyroxine 75 mcg tablet 75 mcg PO DAILY 01/04/18 U nknown History conjugated estrogens 0.625 mg/gram 0.625 mg vaginal .Q 3DAYS 06/28/22 Unknown History vaginal cream (Premarin) triamcinolone acetonide 0.5 % 1 applic topical DAILY P RN PRN 06/28/22 Unknown History topical cream ECZEMA multivitamin-ferrous 1 tab PO DAILY 08/29/22 Unkn own History fumarate-folic acid 18 mg-400 mcg tablet (Centrum Women) losartan 50 mg tablet 50 mg PO DAILY 03/28/25 Unkn own History ondansetron HCl 4 mg tablet 4 mg PO Q8H PRN PRN nausea and 03/28/25 Unknown History vomiting Allergy/AdvReac Type Severity Reaction Status Date / Time cefaclor (From [facility]) Allergy Hives Verified 03/28/25 14:25 latex Allergy Rash Verified 03/28/25 14:25 Family History Mother Cancer lung Diabetes Colon polyps Father Hypertension Brother Diabetes Colon polyps Surgical History History of bladder suspension procedure History of esophagogastroduodenoscopy (EGD) Status post hysteroscopic myomectomy Infected cyst of Bartholin's gland duct Status post lymph node biopsy S/P cataract extraction S/P hysterectomy S/P rotator cuff repair H/O section S/P colonoscopy S/P laparoscopic cholecystectomy Status post dilation and curettage Social History Smoking Status: Former smoker ROS Constitutional Constitutional: Reports fatigue; Denies anorexia, chills, fever(s), malaise or weakness Eyes Eyes: Denies change in vision ENT HEENT: Denies dysphagia, headache(s) or sore throat Cardiovascular Cardiovascular: Reports chest pain; Denies dyspnea on exertion, edema, lightheadedness, orthopnea, palpitations, paroxysmal nocturnal dyspnea, rapid heart rate or syncope Respiratory/Chest Respiratory/Chest: Denies cough, dyspnea, productive cough, shortness of breath at rest or shortness of breath with exertion Gastrointestinal Gastrointestinal: Denies abdominal pain, constipation, diarrhea, nausea or vomiting Genitourinary Genitourinary: Denies burning urination or dysuria Musculoskeletal Musculoskeletal: Denies back pain Neurologic Neurologic: Denies confusion, dizziness, focal weakness, headache(s), seizures or syncope Psychiatric Psychiatric: Denies anxiety or depression Vital Signs Vital Signs Vital Signs: 03/28/25 14:23 03/28/25 14:59 03/28/25 15:02 Temperature 98 F Temperature Source Oral Pulse Rate 98 56 L Respiratory Rate 16 Respiratory Effort Respiratory Pattern Blood Pressure 166/71 H 156/96 H Blood Pressure Mean 102 Pulse Ox 98 Oxygen Delivery Method Room Air Room Air 03/28/25 15:02 03/28/25 15:38 03/28/25 15:45 Temperature Temperature Source Pulse Rate 58 L 56 L Respiratory Rate 14 16 Respiratory Effort Normal Respiratory Pattern Normal Blood Pressure Blood Pressure Mean Pulse Ox 100 100 Oxygen Delivery Method 03/28/25 15:55 03/28/25 16:00 03/28/25 16:00 Temperature Temperature Source Pulse Rate 54 L 56 L 57 L Respiratory Rate 16 15 Respiratory Effort Respiratory Pattern Blood Pressure 129/73 H 131/72 H 131/72 H Blood Pressure Mean 91 90 Pulse Ox 100 99 Oxygen Delivery Method Room Air Room Air 03/28/25 16:05 03/28/25 16:10 03/28/25 16:15 Temperature Temperature Source Pulse Rate 52 L 57 L 58 L Respiratory Rate 12 16 17 Respiratory Effort Respiratory Pattern Blood Pressure 125/57 H 118/63 111/66 Blood Pressure Mean 76 78 80 Pulse Ox 100 98 98 Oxygen Delivery Method 03/28/25 16:20 03/28/25 16:25 03/28/25 16:30 Temperature Temperature Source Pulse Rate 57 L 52 L 51 L Respiratory Rate 13 17 20 H Respiratory Effort Respiratory Pattern Blood Pressure 115/62 127/54 H 119/54 L Blood Pressure Mean 77 72 73 Pulse Ox 97 98 98 Oxygen Delivery Method Room Air 03/28/25 16:35 03/28/25 16:40 03/28/25 16:45 Temperature Temperature Source Pulse Rate 52 L 50 L 51 L Respiratory Rate 14 15 14 Respiratory Effort Respiratory Pattern Blood Pressure 113/57 L 120/79 130/59 H Blood Pressure Mean 73 93 81 Pulse Ox 99 99 99 Oxygen Delivery Method 03/28/25 16:50 03/28/25 16:55 03/28/25 17:15 Temperature Temperature Source Pulse Rate 54 L 51 L Respiratory Rate 21 H 18 Respiratory Effort Respiratory Pattern Blood Pressure 122/60 H 127/62 H Blood Pressure Mean 79 81 Pulse Ox 99 100 Oxygen Delivery Method 03/28/25 17:16 03/28/25 17:18 03/28/25 17:23 Temperature Temperature Source Pulse Rate 53 L 52 L 56 L Respiratory Rate 23 H Respiratory Effort Respiratory Pattern Blood Pressure 123/81 H 123/81 H 117/60 Blood Pressure Mean 95 Pulse Ox 98 Oxygen Delivery Method Room Air Weight Weight: 223 lb 14.4 oz Body Mass Index (BMI) 37.2 Physical Exam Const alert, oriented x3 and no apparent distress General Appearance: cooperative HEENT normocephalic, head/scalp atraumatic, hearing grossly normal bilaterally, moist oral mucous membranes and oropharynx normal Mouth: oral and palatal mucosa normal Eyes EOMs intact bilaterally and conjunctivae normal Neck supple and no JVD Resp normal respiratory effort, no use of accessory muscles and clear to auscultationbilaterally Cardio regular rate, regular rhythm, S1 normal heart sound, S2 normal heart sound and no murmurs GI normal to inspection, nondistended, normoactive bowel sounds, soft to palpation and non-tender Extremity normal to inspection, full ROM and no clubbing, cyanosis or edema Neuro oriented x3, moves all extremities and no focal motor deficits Sensorium / Orientation: awake and alert Motor Exam: strength 5/5 throughout Psych affect normal Results Lab / Micro Data 03/28/25 Unknown 03/28/25 14:53 Labs: Laboratory Results - last 24 hr 03/28/25 14:53: PT 13.3, INR 1.0, APTT 26.6, Sodium 140, Potassium 3.7, [id number], Carbon Pqwviue39.0, Anion Gap 11, BUN 13, Creatinine 0.89, Estim Creat Clear Calc 68.48, Est GFR (MDRD) Non-Af 69, BUN/Creatinine Ratio 14.6, Glucose 122 H, Calcium 8.9, Troponin T High Sens 8 03/28/25 : WBC 6.7, RBC 3.86 L, Hgb 12.6, Hct 37.2, MCV 96.4, MCH 32.6 H, MCHC 33.9, RDW Std Deviation 44.6 H, RDW Coeff of Daryl 12.7, Plt Count 123 L, MPV 9.7,Immature Gran % (Auto) 0.600, Neut % (Auto) 72.2 H, Lymph % (Auto) 16.3 L, Nicholas % (Auto) 9.9, Eos % (Auto) 0.6, Baso % (Auto) 0.4, Absolute Neuts (auto) 4.8, Absolute Lymphs (auto) 1.09, Nucleated RBC % 0 Imaging Radiology Impression Chest X-Ray 03/28/25 15:10 IMPRESSION: Cardiomegaly with mild congestion. Reading Location: [facility] Assessment & Plan Assessment/Plan (1) CAD (coronary artery disease): (2) Chest pain: PLAN: Plan #Chest pain in the setting of abnormal stress test * Patient has been having exertional chest pain for about a year which gradually worsened recently so she had an outpatient stress test yesterday which was abnormal. It showed mild perfusion reduced in the anterior wall post pharmacological stress suggestive of anterior wall ischemia with EF of 70%. * She was called to come to see cardiology today. She still Having Chest Pain so She Went into the ED. * Initial troponin is negative. I will cycle troponins. EKG showed new right bundle branch block. * Placed on aspirin and high intensity statin. On metoprolol. * Consult cardiology. Patient for cardiac cath Monday. * Get 2D echo. * #Hypertension: On losartan #Hypothyroidism: On Synthroid Class II obesity: BMI is 37.1. Complicates acute care, expected recovery and prognosis. DVT prophylaxis: lovenox CODE STATUS: * Patient counseled extensively about different types of CODE STATUS including full code, DNR CCA and DNR CCA. * Patient elects to be full code. * Total yfee-lj-vmfa time 16 minutes. Charges/Coding Visit Charges Inpatient E&M: 73944 Init Hosp L2 Procedures Hospitalists Procedures: 07631 Advncd Care Plan 30 Min 03/28/25 1905 Cosigner Signature (if applicable): CC: Dr. Khushboo Dudley MD; Dr. Loren De Souza MD~ Signed [facility]06-13-2025 Radiology Diagnostic study note [facility] Imaging Services [address] [place] [address] Chest 1 View (Portable) MR#: [id number] Acct: [id number] Name: GUMARO CARRASQUILLO Rep #: [id number] : 1955 F 70 From: Debra Bosch MD PCP: Dr. Khushboo Dudley MD Status: REG ER Study:Chest 1 View (Portable) Date of Exam: 03/28/25 Exam# [id number] Ordering Dr: Davey Bosch DO EXAM: XR Chest, 1 View CLINICAL INDICATION: CHEST PAIN TECHNIQUE: Frontal view of the chest. COMPARISON: No relevant prior studies available. FINDINGS: LUNGS AND PLEURAL SPACES: See below. HEART: Cardiomegaly with mild congestion. MEDIASTINUM: Unremarkable. Normal mediastinal contour. BONES/JOINTS: Unremarkable. No acute fracture. RAD/Chest 1 View (Portable) IMPRESSION: Cardiomegaly with mild congestion. Reading Location: [facility] CC: Dr. Khushboo Dudley MD; Dr. Davey Bosch DO ~ Licensed Acupuncturist: Signed [facility]06-04-2025 Radiology Diagnostic study note [facility] Imaging Services [address] [place] [address] Breast Limited Unilateral MR#: [id number] Acct: [id number] Name: GUMARO CARRASQUILLO Rep #: [id number] : 1955 F 70 From: Zofia Banerjee MD PCP: Dr. Khushboo Dudley MD Status: REG CLI Study:Breast Limited Unilateral Date of Exam: 03/18/25 Exam# [id number] Ordering Dr: Scott Dudley MD PROCEDURE: BREAST LIMITED UNILATERAL 03/18/2025 REASON FOR EXAM: 70-year-old female presents for follow-up of the right breast finding on examination of 03/07/2025.No family history of breast cancer. TECHNIQUE: Targeted [...] nipple measuring 1.3 x 1.0 x 0.7 cm.This is an appropriate correlate for the mammographic finding. US/Breast Limited Unilateral IMPRESSION: Impression: Benign right breast cyst. Birads: BI-RADS 2: BENIGN. RECOMMEND ANNUAL MAMMOGRAPHIC SCREENING. Reading Location: [id number] CC: Dr. Khushboo Dudley MD ~ Licensed Acupuncturist: [facility]igned [facility] note[facility] assessment information available [facility] Work Phone: Evaluation note* Diagnosis Onset Date Resolution Status Encounter for screening for malignant neoplasm of colo n acute [facility] Work Phone: Reason for referral (narrative)No reason for referral information [facility] Work Phone: Family History No Family History [...] Will Yes August 09 7:00pm Power of Customer Care Team Coach Yes August 09, 2021 7:00pm Advance Directive Response Recorded Date/ Time Name of Medical Power of Customer Care Team Coach SPOUSE August 29, 2022 4:00pm Living Will Yes August 29, 022 4:00pm Power of Customer Care Team Coach Yes August 29, 2022 4:00pm Advance Directive Response Recorded Date/ Time Living Will Yes August 29, 022 5:00pm Power of Customer Care Team Coach Yes August 29, 2022 5:00pm Advance Directive Response Recorded Date/ Time Living Will Yes August 29, 022 4:00pm Power of Customer Care Team Coach Yes August 29, 2022 4:00pm Advance Directive Response Recorded Date/ Time Do you have a Healthcare Power of Customer Care Team Coach? Yes March 28, 2025 3:02pm Advance Directive Response Recorded Date/ Time Do you have a Healthcare Power of Customer Care Team Coach? Yes March 28, 2025 6:38pm Chief Complaint and Reason for Visit Chief [...] CHEST PAIN March 28, 2025 5:41 pm Chief Complaint Admit Date SCREENING; CHEST PAIN March 07, 2025 12: 54pm ABN MAMM RT BREAST March 18, 2025 9:20a m Chest Pain March 27, 2025 6:21 am Chest Pain March 27, 2025 1:35 pm CHEST PAIN March 28, 2025 5:41 pm CHEST PAIN March 29, 2025 1:44 pm CHEST PAIN March 30, 2025 6:21 am CHEST PAIN March 30, 2025 10:5 6am CHEST PAIN March 31, 2025 8:29 am CHEST PAIN March 31, 2025 10:3 9am Reason for Visit Admit Date Abnormal stress test March 28, 2025 5:4 1pm CAD (coronary artery disease) March 28, 2025 5:41pm Chest pain March 28, 2025 5:41 pm History of hypertension March 28, 2025 5:41pm Summary Purpose Additional Source Comments Goals (unrecognized [...] Attending Provider Active Start: March 28, 2025 Team Status: Inactive Member Role Status Dates Dr. Khushboo Dudley MD Primary Care Provider Active Start: March 28, 2025 End: March 31, 2025 Dr. Davey Bosch DO Emergency Provider Active Start : March 28, 2025 End: March 31, 2025 Dr. Loren De Souza MD Admit Provider Active St art: March 28, 2025 End: March 31, 2025 Dr. Loren De Souza MD Other Provider Active St art: March 28, 2025 End: March 31, 2025 Dr. Stoney Veronica MD Other Provider Active Start : March 28, 2025 End: March 31, 2025 Dr. Eleazar Gonzalez MD Attending Provider Active Start: March 28, 2025 End: March 31, 2025 Team Status: Active Member Role Status Dates Dr. Khushboo Dudley MD Primary Care Provider Active Start: March 29, 2025 Dr. Jimi Flores MD Attending Provider Active Start: March 29, 2025 Team Status: Active Member Role Status Dates Dr. Khushboo Dudley MD Primary Care Provider Active Start: March 29, 2025 Dr. Davey Bosch DO Emergency Provider Active Start : March 29, 2025 Dr. Loren De Souza MD Admit Provider Active St art: March 29, 2025 Dr. Loren De Souza MD Attending Provider Active Start: March 29, 2025 Dr. Loren De Souza MD Other Provider Active St art: March 29, 2025 Dr. Jimi Flores MD Other Provider Active Star t: March 29, 2025 Team Status: Active Member Role Status Dates Dr. Khushboo Dudley MD Primary Care Provider Active Start: March 30, 2025 Dr. Davey Bosch DO Emergency Provider Active Start : March 30, 2025 Dr. Loren De Souza MD Admit Provider Active St art: March 30, 2025 Dr. Loren De Souza MD Other Provider Active St art: March 30, 2025 Dr. Jimi Flores MD Other Provider Active Star t: March 30, 2025 Dr. Johana Neff DO Attending Provider Active S tart: March 30, 2025 Team Status: Active Member Role Status Dates Dr. Khushboo Dudley MD Primary Care Provider Active Start: March 30, 2025 Dr. Davey Bosch DO Emergency Provider Active Start : March 30, 2025 Dr. Loren De Souza MD Admit Provider Active St art: March 30, 2025 Dr. Loren De Souza MD Other Provider Active St art: March 30, 2025 Dr. Jimi Flores MD Attending Provider Active Start: March 30, 2025 Dr. Jimi Flores MD Other Provider Active Star t: March 30, 2025 Team Status: Active Member Role Status Dates Dr. Khushboo Dudley MD Primary Care Provider Active Start: March 31, 2025 Dr. Davey Bosch DO Emergency Provider Active Start : March 31, 2025 Dr. Loren De Souza MD Admit Provider Active St art: March 31, 2025 Dr. Loren De Souza MD Other Provider Active St art: March 31, 2025 Dr. Stoney Veronica MD Attending Provider Active S tart: March 31, 2025 Dr. Stoney Veronica MD Other Provider Active Start : March 31, 2025 Dr. Eleazar Gonzalez MD Other Provider Active Sta rt: March 31, 2025 Team Status: Active Member Role Status Dates Dr. Khushboo Dudley MD Primary Care Provider Active Start: March 31, 2025 Dr. Davey Bosch DO Emergency Provider Active Start : March 31, 2025 Dr. Loren De Souza MD Admit Provider Active St art: March 31, 2025 Dr. Loren De Souza MD Other Provider Active St art: March 31, 2025 Dr. Stoney Veronica MD Other Provider Active Start : March 31, 2025 Dr. Eleazar Gonzalez MD Attending Provider Active Start: March 31, 2025 Dr. Eleazar Gonzalez MD Other Provider Active Sta rt: March 31, 2025 Team Status: Inactive Member Role Status Dates Dr. Khushboo Dudley MD Primary Care Provider Active Start: March 27, 2025 End: March 27, 2025 Dr. Khushboo Dudley MD Attending Provider Active Start: March 27, 2025 End: March 27, 2025 Dr. Khushboo Dudley MD Referring Provider Active Start: March 27, 2025 End: March 27, 2025 INFORMATION SOURCE (unrecogn ized section and content) DATE CREATED AUTHOR 06/07/2025 [facility] FOR RECORDS PERTAINING TO PATIENTS WHO ARE [...] BE BASED ON THE PRIMARY CLINICAL RECORDS. [employer] provides no warranty or guarantee of the accuracy or completeness of information in this document.
--- NOTE | 2025-06-10 22:50 | RAD_ITS ---
PROCEDURE: CHEST 1 VIEW (PORTABLE) 06/10/2025 REASON FOR EXAM: CHEST PAIN TECHNIQUE: Frontal view of the chest. COMPARISON: 03/28/2025. FINDINGS: The heart is enlarged in size. The lungs are clear. No acute osseous abnormalities. RAD/Chest 1 View (Portable) IMPRESSION: No Acute Findings. Reading Location: [id number]
[2025-06-10 22:54] LABS: Hematocrit 36.9 % (37-47); Hemoglobin 12.4 g/dL (12.0-15.0); Immature Granulocytes Count 0.020 X10^3/uL (0.0-0.0); Mean Corp Hgb Conc 33.6 g/dL (32-36); Mean Corpuscular Volume 97.4 fL (81-99); Mean Platelet Vol. 10.1 fl (6.2-12.0); NRBC Flagged by Analyzer 0 % (0-5); Platelet Count 124 K/mm3 (150-450); RBC Distribution Width CV 12.6 % (11.6-14.6); RBC Distribution Width SD 45.2 fl (35.1-43.9); Red Blood Count 3.79 M/mm3 (4.2-5.4); White Blood Count 7.3 K/mm3 (4.4-11.0)
[2025-06-10 23:15] VITALS: BP 130/65; PULSE 53; RESP 17; O2SAT 96
[2025-06-10 23:18] LABS: Anion Gap 13 (5-15); BUN 18 mg/dL (4-19); BUN/Creat Ratio 22.7 RATIO (10-20); Calcium,Total 9.1 mg/dL (7.6-11.0); Carbon Dioxide 20.0 mmol/L (21.0-32.0); Chloride 105 mmol/L (98-108); Estimated Creatinine Clearance 71.96 ml/min (50-250); Glucose 124 mg/dL (70-99); Potassium 3.7 mmol/L (3.3-5.1); Troponin T High Sensitivity 11 ng/L (<=14)
[2025-06-11] VITALS: BP 129/63; PULSE 55; RESP 17; O2SAT 95
[2025-06-11 01:00] VITALS: BP 135/65; PULSE 56; RESP 18; O2SAT 94
[2025-06-11 01:00] LABS: Troponin T High Sens 2 HR 12 ng/L (<=14)
[2025-06-11 01:28] VITALS: BP 135/65; PULSE 56; RESP 18; TEMP 37.2; O2SAT 94
== END 2025-06-11 01:55 | disposition home or self-care (01) ==
PROVIDERS: Emergency Provider Emergency Medicine; PCP Family Medicine; Visit Provider Emergency Medicine
DX: R07.9 Chest pain, unspecified (principal); I10 Essential (primary) hypertension; E03.9 Hypothyroidism, unspecified; Z87.891 Personal history of nicotine dependence; Z79.899 Other long term (current) drug therapy
CPT/HCPCS: 71045; 80048; 84484; 85025; 93005; 99283; A4216

== ENCOUNTER → 2025-06-11 | Outpatient (CLI) | payer MEDICARE, OTHER, SELFPAY ==
--- OUTSIDE RECORDS SUMMARY | 2025-06-11 01:22 | XMS RPT_ITS | CCD ---
Author Organization [facility] Care Team Providers Care Representative Government Relations Name Role Phone Dr. Khushboo Dudley Primary [...] Aster GARCIA, Dr. Loren Aguilar Admit Provider [phone] Aster GARCIA, Dr. Loren Aguilar Attending Provider Aster GARCIA, Dr. Loren Aguilar Other Provider Glenys GARCIA, Dr. Lua Other Provider Carlos GARCIA, Dr. Bush Attending Provider Sandra GARCIA, Dr. Krause Attending Provider Unavaila ble Aster GARCIA, Dr. Loren Aguilar Attending Provider Sandra GARCIA, Dr. Krause Other Provider Unavailable Dr. Johana Neff DO Attending Provider Glenys GARCIA, Dr. Lua Attending Provider [phone] Carlos GARCIA, Dr. Bush Other Provider Miedel, Khushboo Primary Care Unavailable Miedel, Khushboo Referring Unavailable Miedel, Khushboo Attending Unavailable Miedel, Khushboo Primary Care Unavailable Miedel, Khuhsboo Referring Unavailable Miedel, Khushboo Attending Unavailable Miedel, Khushboo Primary Care Unavailable Koram, Loren Lauren Consulting Unavailable Eleazar Gonzalez Attending Unavailable Koram, Loren Lauren Admitting Unavailable [...] Facility (11 sources) Cefaclor Drug Allergy 08-02-2021 [facility] (11 sources) Latex Allergy to substance 08-02-2021 Rash [facility] (1 source) Cefaclor Drug Allergy 03-28-2025 [facility] (1 source) Latex Drug allergy (disorder) 03-28-2025 [facility] Medications Current Medications Medication Drug Class(es) Dates Sig (Normalized) Sig (Original) acetaminophen 325 mg / oxyCODONE hydrochloride 5 mg oral tablet (2 sources) Opioid Agonist Start: 08-09-2021 take 2 tablets by mouth every eight hours as needed Oxycodone-Acetam inophen Active 2 TABLET PO EVERY 8 HOURS NEEDED 04 05August 09, 2021 [id number] 200 actuat albuterol 0.09 mg/actuat metered dose [...] 12:00am Start: 01-04-2018 take 2 tablets by [facility] once daily Calcium Carbonate 600 MG tablet [...] NEEDED March 28, 2025 12:00am estrogens, conjugated ([facility]) 0.625 mg/ml vaginal cream (10 sources) Estrogen [...] {tbl} PO DAILY March 28, 2025 12:00am Iggkzsircfty-Omdm-Eysts Acid (Centrum Women) 18-400 mg-mcg Tablet (7 sources) Start: 08-29-2022 Multivitamin-I abhijit-Folic Acid (Centrum Women) 18-400 mg-mcg Tablet Active 1 {tbl} PO DAILY August 29, 2022 1:00am Start: 08-29-2022 take 1 tablet by laura once daily Mwquqdhjajwn-Rfuj-Ilivu Acid (Centrum Women) 18-400 mg-mcg Tablet Active 1 TABLET PO DAILY August 29, 2022 1:00am Start: 08-29-2022 take 1 tablet by laura th once daily Wnsparwkdvmu-Alnr-Bnfhk Acid (Centrum Women) 18-400 mg-mcg Tablet Active [...] Start: 08-02-2021 take 1 capsule by mo [facility] once daily Multivitamin Active 1 CAP PO [...] Coronary arteriosclerosis; Translations: [Atherosclerotic heart disease of [place] coronary artery without angina pectoris] Onset: 04-23-2025 [...] Absolute Lymph 1.11 X10 3/uL Normal 0.83-4.51 [facility] Comment on above: Performed By: #### L 501.9187, L100.0100, L506.0400, L500.4050, L501.9520 #### [facility] [address] [place], [address] Absolute Neut 5.7 X10 3/uL Normal 2.0-7.7 [facility] Comment on above: Performed By: #### L 501.9187, L100.0100, L506.0400, L500.4050, L501.9520 #### [facility] [address] [place], [address] Basophils/100 WBC (Bld) 0.4 % Normal 0-1 [facility] Comment on above: Performed By: #### L 501.9187, L100.0100, L506.0400, L500.4050, L501.9520 #### [facility] [address] [place], [address] Eosinophils/100 WBC (Bld) 0.4 % Normal 0-5 [facility] Comment on above: Performed By: #### L 501.9187, L100.0100, L506.0400, L500.4050, L501.9520 #### [facility] [address] [place], [address] Erythrocyte distribution width (RBC) [Ratio] 12.7 % Normal 11.6-14.6 [facility] Comment on above: Performed By: #### L 501.9187, L100.0100, L506.0400, L500.4050, L501.9520 #### [facility] [address] [place], [address] Hematocrit (Bld) [Volume fraction] 38.4 % Normal 37-47 [facility] Comment on above: Performed By: #### L 501.9187, L100.0100, L506.0400, L500.4050, L501.9520 #### [facility] [address] [place], [address] Hemoglobin (Bld) [Mass/Vol] 12.8 g/dL Normal 12.0-15.0 [facility] Comment on above: Performed By: #### L 501.9187, L100.0100, L506.0400, L500.4050, L501.9520 #### [facility] [address] [place], [address] IG% 0.400 Normal 0.0-0.9 [facility] Comment on above: Result Comment: IG% - Immature Granulocytes (promyelocytes, myelocytes and metamyelocytes) > 1% indicates that a LEFT SHIFT is Present. Performed By: #### L 501.9187, L100.0100, L506.0400, L500.4050, L501.9520 #### [facility] [address] [place], [address] Lymphocytes/100 WBC (Bld) 14.8 % Low 19-41 [facility] Comment on above: Performed By: #### L 501.9187, L100.0100, L506.0400, L500.4050, L501.9520 #### [facility] [address] [place], [address] MCH (RBC) [Entitic mass] 32.9 pg High 27.0-32.0 [facility] Comment on above: Performed By: #### L 501.9187, L100.0100, L506.0400, L500.4050, L501.9520 #### [facility] [address] [place], [address] MCHC (RBC) [Mass/Vol] 33.3 g/dL Normal 32-36 [facility] Comment on above: Performed By: #### L 501.9187, L100.0100, L506.0400, L500.4050, L501.9520 #### [facility] [address] [place], [address] MCV (RBC) [Entitic vol] 98.7 fL Normal 81-99 [facility] Comment on above: Performed By: #### L 501.9187, L100.0100, L506.0400, L500.4050, L501.9520 #### [facility] [address] [place], [address] Monocytes/100 WBC (Bld) 8.1 % Normal 0-10 [facility] Comment on above: Performed By: #### L 501.9187, L100.0100, L506.0400, L500.4050, L501.9520 #### [facility] [address] [place], [address] Neutrophils/100 WBC (Bld) 75.9 % High 47-70 [facility] Comment on above: Performed By: #### L 501.9187, L100.0100, L506.0400, L500.4050, L501.9520 #### [facility] [address] [place], [address] Nucleated RBC (Bld) [#/Vol] 0 10*3/uL Normal 0-5 [facility] Comment on above: Performed By: #### L 501.9187, L100.0100, L506.0400, L500.4050, L501.9520 #### [facility] [address] [place], [address] Platelet mean volume (Bld) [Entitic vol] 10.4 fL Normal 6.2-12.0 [facility] Comment on above: Performed By: #### L 501.9187, L100.0100, L506.0400, L500.4050, L501.9520 #### [facility] [address] [place], [address] Platelets (Bld) [#/Vol] 147 10*3/uL Low 150-450 [facility] Comment on above: Performed By: #### L 501.9187, L100.0100, L506.0400, L500.4050, L501.9520 #### [facility] [address] [place], [address] RBC (Bld) [#/Vol] 3.89 10*6/uL Low 4.2-5.4 [facility] Comment on above: Performed By: #### L 501.9187, L100.0100, L506.0400, L500.4050, L501.9520 #### [facility] [address] [place], [address] RDW SD 46.3 fl High 35.1-43.9 [facility] Comment on above: Performed By: #### L 501.9187, L100.0100, L506.0400, L500.4050, L501.9520 #### [facility] [address] [place], [address] WBC (Bld) [#/Vol] 7.5 10*3/uL Normal 4.4-11.0 [facility] Comment on above: Performed By: #### L 501.9187, L100.0100, L506.0400, L500.4050, L501.9520 #### [facility] [address] [place], [address] Comprehensive Metabolic Prof [facility] 06-05-2025 Albumin [Mass/Vol] 3.9 g/dL Normal 3.4-4.8 [facility] Comment on above: Performed By: #### L 501.9187, L100.0100, L506.0400, L500.4050, L501.9520 #### [facility] [address] [place], [address] Albumin/Globulin [Mass ratio] 1.2 {ratio} Normal 0.9-2.4 [facility] Comment on above: Performed By: #### L 501.9187, L100.0100, L506.0400, L500.4050, L501.9520 #### [facility] [address] [place], [address] ALK PHOS 81 U/L Normal 35-104 [facility] Comment on above: Performed By: #### L 501.9187, L100.0100, L506.0400, L500.4050, L501.9520 #### [facility] [address] [place], [address] ALT [Catalytic activity/Vol] 12 U/L Normal <=34 [facility] Comment on above: Performed By: #### L 501.9187, L100.0100, L506.0400, L500.4050, L501.9520 #### [facility] [address] [place], [address] AST [Catalytic activity/Vol] 18 U/L Normal <=31 [facility] Comment on above: Performed By: #### L 501.9187, L100.0100, L506.0400, L500.4050, L501.9520 #### [facility] [address] [place], [address] Bilirubin [Mass/Vol] 0.27 mg/dL Normal 0.00-1.30 [facility] Comment on above: Performed By: #### L 501.9187, L100.0100, L506.0400, L500.4050, L501.9520 #### [facility] [address] [place], [address] BUN/CRE 19.7 RATIO Normal 10-20 [facility] Comment on above: Performed By: #### L 501.9187, L100.0100, L506.0400, L500.4050, L501.9520 #### [facility] [address] [place], [address] Calcium [Mass/Vol] 9.2 mg/dL Normal 7.6-11.0 [facility] Comment on above: Performed By: #### L 501.9187, L100.0100, L506.0400, L500.4050, L501.9520 #### [facility] [address] [place], [address] Chloride [Moles/Vol] 105 mmol/L Normal 98-108 [facility] Comment on above: Performed By: #### L 501.9187, L100.0100, L506.0400, L500.4050, L501.9520 #### [facility] [address] [place], [address] CO2 [Moles/Vol] 24.8 mmol/L Normal 21.0-32.0 [facility] Comment on above: Performed By: #### L 501.9187, L100.0100, L506.0400, L500.4050, L501.9520 #### [facility] [address] [place], [address] Creatinine [Mass/Vol] 0.79 mg/dL Normal 0.70-1.20 [facility] Comment on above: Performed By: #### L 501.9187, L100.0100, L506.0400, L500.4050, L501.9520 #### [facility] [address] [place], [address] GAP 11 Normal 5-15 [facility] Comment on above: Performed By: #### L 501.9187, L100.0100, L506.0400, L500.4050, L501.9520 #### [facility] [address] [place], [address] GFR/1.73 sq M.predicted among non-blacks MDRD (S/P/Bld) [Vol rate/Area] 80 mL/min/{1.73_m2} Normal >60 [facility] Comment on above: Result Comment: mL/m in/1.73m2 CKD-EPI Creatinine Equation (2020) Performed By: #### L 501.9187, L100.0100, L506.0400, L500.4050, L501.9520 #### [facility] [address] [place], [address] Globulin (S) [Mass/Vol] 3.2 g/dL Normal 2.2-4.2 [facility] Comment on above: Performed By: #### L 501.9187, L100.0100, L506.0400, L500.4050, L501.9520 #### [facility] [address] [place], [address] Glucose [Mass/Vol] 102 mg/dL High 70-99 [facility] Comment on above: Performed By: #### L 501.9187, L100.0100, L506.0400, L500.4050, L501.9520 #### [facility] [address] [place], [address] Potassium [Moles/Vol] 4.0 mmol/L Normal 3.3-5.1 [facility] Comment on above: Performed By: #### L 501.9187, L100.0100, L506.0400, L500.4050, L501.9520 #### [facility] [address] [place], [address] Sodium [Moles/Vol] 141 mmol/L Normal 133-145 [facility] Comment on above: Performed By: #### L 501.9187, L100.0100, L506.0400, L500.4050, L501.9520 #### [facility] [address] [place], [address] T PROT 7.1 g/dL Normal 5.9-8.4 [facility] Comment on above: Performed By: #### L 501.9187, L100.0100, L506.0400, L500.4050, L501.9520 #### [facility] [address] [place], [address] Urea nitrogen [Mass/Vol] 16 mg/dL Normal 4-19 [facility] Comment on above: Performed By: #### L 501.9187, L100.0100, L506.0400, L500.4050, L501.9520 #### [facility] [address] [place], [address] L501.9187on 06-05-2025 T3 Total 0.87 ng/mL Normal 0.80-2.00 [facility] Comment on above: Performed By: #### L 501.9187, L100.0100, L506.0400, L500.4050, L501.9520 #### [facility] [address] [place], [address] T4 Free Directon 06-05-2025 T4 FREE DIRECT 1.40 ng/dL Normal 0.76-1.46 [facility] Comment on above: Performed By: #### L 501.9187, L100.0100, L506.0400, L500.4050, L501.9520 #### [facility] [address] [place], [address] Thyroid Stim Hormone (TSH)on 06-05-2025 TSH 0.588 uIU/mL Normal 0.300-4.20 0 [facility] Comment on above: Performed By: #### L 501.9187, L100.0100, L506.0400, L500.4050, L501.9520 #### [facility] [address] [place], [address] Cardiac Cath Diagnosticon Cardiac Cath Diagnostic [facility] Imaging Services [address] [place] [address] Cardiac Cath Diagnostic MR#: [id number] Acct: [id number] Name: GUMARO CARRASQUILLO Rep #: [id number] : 1955 70 From: Stoney Veronica MD PCP: Dr. Khushboo Dudley MD Status:DIS IN Patient Name: GUMARO CARRASQUILLO Study Date: 03/31/2025 Performing: Stoney Veronica MD Ht: 65 inches 165.1 cm : 1955 Wt: 222.89 lbs 101.1 kg Age: 70 Gender: female BSA: 2.07 PROCEDURE(S) PERFORMED DC01-(43057)LHC/COR/LV CLINICAL PROFILE AND INDICATIONS Indications: Suspected CAD [...] multiple views using a 5 Fr. 4.0 [place] catheter. Right Coronary Artery selective angiography was then performed in multiple views using a 5 Fr. 4.0 [place] catheter. Left Ventriculography was performed in [place] [...] MD Date Dictated: 03/31/25814 Date Transcribed: 03/31/25835 Wire Spinner: CO Signed [facility] 12 Lead EKGon 03-31-2025 12 Lead EKG [facility] Cardiovascular Services [address] [place] [address] 12 Lead EKG 03/31/25 0945 MR#: [id number] Acct: [id number] Name: GUMARO CARRASQUILLO Rep #: [id number] : 1955 70 From: Stoney Veronica MD Attending Dr: Dr. Eleazar Gonzalez MD Status: DIS IN Ordering Dr: Loren De Souza MD Date: 03/31/25 Location: [facility] Sex: F C Admitted: 03/28/25 Test [...] UNCONFIRMED Confirmed by GLENYS GARCIA, STONEY ([id number]), order editor IRVING HOLLY ([id number]) on 04/02/2025 7:30:16 AM Referred By: ASTER Confirmed By: STONEY VERONICA MD 04/02/25729 Date Stoney Veronica MD CC: Dr. Khushboo Dudley MD; Dr. Loren De Souza MD; Dr. Eleazar Gonzalez MD Signed [facility] 12 Lead EKG [facility] Cardiovascular Services [address] [place] [address] 12 Lead EKG 03/30/25 0555 MR#: [id number] Acct: [id number] Name: GUMARO CARRASQUILLO Rep #: [id number] : 1955 70 From: Stoney Veronica MD Attending Dr: Dr. Eleazar Gonzalez MD Status: DIS IN Ordering Dr: Johana Neff DO Date: 03/31/25 Location: [facility] Sex: F C Admitted: 03/28/25 Test [...] UNCONFIRMED Confirmed by STONEY VERONICA MD ([id number]), order editor ANTHONY HADLEY ([id number]) on 04/01/2025 8:27:43 AM Referred By: Confirmed By: STONEY VERONICA MD 04/01/25 0827 Date Stoney Veronica MD CC: Dr. Khushboo Dudley MD; Dr. Johana Neff DO; Dr. Eleazar Gonzalez MD Signed Normal [facility] Absolute lymphocyte countOrd ered By: Loren De Souza on 03-31-2025 Lymphocytes Auto (Unsp spec) [#/Vol] 1.40 10*3/uL 0.83-4.51 [facility] Absolute neutrophil countOrd ered By: Loren De Souza on 03-31-2025 Neutrophils (Bld) [#/Vol] 4.0 10*3/uL 2.0-7.7 [facility] Anion gap in Serum or Plasma Ordered By: Loren De Souza on 03-31-2025 Anion gap [Moles/Vol] 10 mmol/L -15 [facility] Automated lymphocyte count a s percentage of total leukocytesOrdered By: Loren De Souza on 03-31-2025 Lymphocytes/100 WBC Auto (Unsp spec) 22.7 % - [facility] BUN/creatinine ratioOrdered By: Loren De Souza on 03-31-2025 Urea nitrogen/Creatinine [Mass ratio] 15.8 mg/mg 10- [facility] Basic Metabolic Profile (BMP )on 03-31-2025 BUN/CRE 15.8 RATIO Normal - [facility] Comment on above: Performed By: #### L 100.0100, L500.2500 #### [facility] [address] [place], [address] Calcium [Mass/Vol] 8.7 mg/dL Normal 7.6-11.0 [facility] Comment on above: Performed By: #### L 100.0100, L500.2500 #### [facility] [address] [place], [address] Chloride [Moles/Vol] 108 mmol/L Normal 98-108 [facility] Comment on above: Performed By: #### L 100.0100, L500.2500 #### [facility] [address] [place], [address] CO2 [Moles/Vol] 21.9 mmol/L Normal 21.0-32.0 [facility] Comment on above: Performed By: #### L 100.0100, L500.2500 #### [facility] [address] [place], [address] Creatinine [Mass/Vol] 0.75 mg/dL Normal 0.70-1.20 [facility] Comment on above: Performed By: #### L 100.0100, L500.2500 #### [facility] [address] [place], [address] ECRCL 76.00 ml/min Normal 50-250 [facility] Comment on above: Performed By: #### L 100.0100, L500.2500 #### [facility] [address] [place], [address] GAP 10 Normal 5-15 [facility] Comment on above: Performed By: #### L 100.0100, L500.2500 #### [facility] [address] [place], [address] GFR/1.73 sq M.predicted among non-blacks MDRD (S/P/Bld) [Vol rate/Area] 85 mL/min/{1.73_m2} Normal >60 [facility] Comment on above: Result Comment: mL/m in/1.73m2 CKD-EPI Creatinine Equation (2020) Performed By: #### L 100.0100, L500.2500 #### [facility] [address] [place], [address] Glucose [Mass/Vol] 98 mg/dL Normal 70-99 [facility] Comment on above: Performed By: #### L 100.0100, L500.2500 #### [facility] [address] [place], [address] Potassium [Moles/Vol] 3.8 mmol/L Normal 3.3-5.1 [facility] Comment on above: Performed By: #### L 100.0100, L500.2500 #### [facility] [address] [place], [address] Sodium [Moles/Vol] 141 mmol/L Normal 133-145 [facility] Comment on above: Performed By: #### L 100.0100, L500.2500 #### [facility] [address] [place], [address] Urea nitrogen [Mass/Vol] 12 mg/dL Normal 4-19 [facility] Comment on above: Performed By: #### L 100.0100, L500.2500 #### [facility] [address] [place], [address] Basophil percentageOrdered B y: Loren De Souza on 03-31-2025 Basophils/100 WBC (Bld) 0.5 % 0-1 [facility] CBC W/Diff, Automatedon 03-16 Absolute Lymph 1.40 X10 3/uL Normal 0.83-4.51 [facility] Comment on above: Performed By: #### L 100.0100, L500.2500 #### [facility] [address] [place], [address] Absolute Neut 4.0 X10 3/uL Normal 2.0-7.7 [facility] Comment on above: Performed By: #### L 100.0100, L500.2500 #### [facility] [address] [place], [address] Basophils/100 WBC (Bld) 0.5 % Normal 0-1 [facility] Comment on above: Performed By: #### L 100.0100, L500.2500 #### [facility] [address] [place], [address] Eosinophils/100 WBC (Bld) 1.9 % Normal 0-5 [facility] Comment on above: Performed By: #### L 100.0100, L500.2500 #### [facility] [address] [place], [address] Erythrocyte distribution width (RBC) [Ratio] 12.6 % Normal 11.6-14.6 [facility] Comment on above: Performed By: #### L 100.0100, L500.2500 #### [facility] [address] [place], [address] Hematocrit (Bld) [Volume fraction] 35.9 % Low 37-47 [facility] Comment on above: Performed By: #### L 100.0100, L500.2500 #### [facility] [address] [place], [address] Hemoglobin (Bld) [Mass/Vol] 12.1 g/dL Normal 12.0-15.0 [facility] Comment on above: Performed By: #### L 100.0100, L500.2500 #### [facility] [address] [place], [address] IG% 0.300 Normal 0.0-0.9 [facility] Comment on above: Result Comment: IG% - Immature Granulocytes (promyelocytes, myelocytes and metamyelocytes) > 1% indicates that a LEFT SHIFT is Present. Performed By: #### L 100.0100, L500.2500 #### [facility] [address] [place], [address] Lymphocytes/100 WBC (Bld) 22.7 % Normal 19-41 [facility] Comment on above: Performed By: #### L 100.0100, L500.2500 #### [facility] [address] [place], [address] MCH (RBC) [Entitic mass] 32.4 pg High 27.0-32.0 [facility] Comment on above: Performed By: #### L 100.0100, L500.2500 #### [facility] [address] [place], [address] MCHC (RBC) [Mass/Vol] 33.7 g/dL Normal 32-36 [facility] Comment on above: Performed By: #### L 100.0100, L500.2500 #### [facility] [address] [place], [address] MCV (RBC) [Entitic vol] 96.0 fL Normal 81-99 [facility] Comment on above: Performed By: #### L 100.0100, L500.2500 #### [facility] [address] [place], [address] Monocytes/100 WBC (Bld) 10.2 % High 0-10 [facility] Comment on above: Performed By: #### L 100.0100, L500.2500 #### [facility] [address] [place], [address] Neutrophils/100 WBC (Bld) 64.4 % Normal 47-70 [facility] Comment on above: Performed By: #### L 100.0100, L500.2500 #### [facility] [address] [place], [address] Nucleated RBC (Bld) [#/Vol] 0 10*3/uL Normal 0-5 [facility] Comment on above: Performed By: #### L 100.0100, L500.2500 #### [facility] [address] [place], [address] Platelet mean volume (Bld) [Entitic vol] 10.0 fL Normal 6.2-12.0 [facility] Comment on above: Performed By: #### L 100.0100, L500.2500 #### [facility] [address] [place], [address] Platelets (Bld) [#/Vol] 120 10*3/uL Low 150-450 [facility] Comment on above: Performed By: #### L 100.0100, L500.2500 #### [facility] [address] [place], [address] RBC (Bld) [#/Vol] 3.74 10*6/uL Low 4.2-5.4 [facility] Comment on above: Performed By: #### L 100.0100, L500.2500 #### [facility] [address] [place], [address] RDW SD 43.6 fl Normal 35.1-43.9 [facility] Comment on above: Performed By: #### L 100.0100, L500.2500 #### [facility] [address] [place], [address] WBC (Bld) [#/Vol] 6.2 10*3/uL Normal 4.4-11.0 [facility] Comment on above: Performed By: #### L 100.0100, L500.2500 #### [facility] [address] [place], [address] Carbon dioxide, total [Moles /volume] in Central venous bloodOrdered By: Loren Aster on 03-31-2025 CO2 [Moles/Vol] 21.9 mmol/L 21.0-32.0 [facility] Chloride assayOrdered By: Na na Aster on 03-31-2025 Chloride [Moles/Vol] 108 mmol/L 98-108 [facility] Discharge Instructionon 03-16 Discharge Instruction [facility] Medical Records Department [address] [place] [address] Instructions for Home/Discharge Instructions 03/31/25 1034 MR#: [id number] Acct: [id number] Name: GUMARO CARRASQUILLO Rep #: [id number] : 1955 70 From: Eleazar Gonzalez MD [...] Dr. Loren De Souza MD Signed Normal [facility] Eosinophil percentageOrdered By: Loren De Souza on 03-31-2025 Eosinophils/100 WBC (Bld) 1.9 % 0-5 [facility] Erythrocyte distribution wid th ratioOrdered By: Loren De Souza on 03-31-2025 Erythrocyte distribution width (RBC) [Ratio] 12.6 % 11.6-14.6 [facility] Erythrocyte distribution wid th standard deviationOrdered By: Loren De Souza on 03-31-2025 Erythrocyte distribution width (RBC) [Ratio] 43.6 fl 35.1-43.9 [facility] Glomerular filtration rate ( GFR) estimation/1.73 sq m using serum, plasma, or whole bOrdered By: Loren De Souza on 03-31-2025 GFR/1.73 sq M.predicted among non-blacks MDRD (S/P/Bld) [Vol rate/Area] 85 mL/min/{1.73_m2} >60 [facility] Comment on above: mL/min/1.73m2 CKD-EP I Creatinine Equation (2020) Hematocrit Auto (Bld) [Volum e fraction]Ordered By: Loren De Souza on 03-31-2025 Hematocrit (Bld) [Volume fraction] 35.9 % Low 37-47 [facility] Hemoglobin measurementOrdere d By: Loren De Souza on 03-31-2025 Hemoglobin (Bld) [Mass/Vol] 12.1 g/dL 12.0-15.0 [facility] Immature granulocytes/100 WB C Auto (Bld)Ordered By: Loren De Souza 03-31-2025 Immature granulocytes/100 WBC (Bld) 0.300 % 0.0-0.9 [facility] Comment on above: IG% - Immature Granu locytes (promyelocytes, myelocytes and metamyelocytes) > 1% indicates that a LEFT SHIFT is Present. MCV (mean corpuscular volume ) determinationOrdered By: Loren De Souza 03-31-2025 MCV (RBC) [Entitic vol] 96.0 fL 81-99 [facility] Mean corpuscular hemoglobin (MCH) determinationOrdered By: Loren De Souza 03-31-2025 MCH (RBC) [Entitic mass] 32.4 pg High 27.0-32.0 [facility] Mean corpuscular hemoglobin concentration (MCHC) determinationOrdered By: Loren De Souza 03-31-2025 MCHC (RBC) [Mass/Vol] 33.7 g/dL 32-36 [facility] Mean platelet volume determi nationOrdered By: Loren De Souza 03-31-2025 Platelet mean volume (Bld) [Entitic vol] 10.0 fL 6.2-12.0 [facility] Monocyte percentageOrdered B y: Loren De Souza on 03-31-2025 Monocytes/100 WBC (Bld) 10.2 % High 0-10 [facility] Neutrophil percentageOrdered By: Loren De Souza on 03-31-2025 Neutrophils/100 WBC (Bld) 64.4 % 47-70 [facility] Nucleated red blood cell per centageOrdered By: Loren De Souza on 03-31-2025 Nucleated RBC/100 WBC (Bld) [Ratio] 0 % 0-5 [facility] Platelet countOrdered By: Na na Aster on 03-31-2025 Platelets (Bld) [#/Vol] 120 10*3/uL Low 150-450 [facility] Potassium measurement (mass/ volume)Ordered By: Loren De Souza on 03-31-2025 Potassium (Unsp spec) [Mass/Vol] 3.8 mmol/L 3.3-5.1 [facility] RBC Auto (Bld) [#/Vol]Ordere d By: Loren De Souza on 03-31-2025 RBC (Bld) [#/Vol] 3.74 10*6/uL Low 4.2-5.4 [facility] Serum creatinine measurement (mass/volume)Ordered By: Loren De Souza on 03-31-2025 Creatinine [Mass/Vol] 0.75 mg/dL 0.70-1.20 [facility] Serum glucose measurement (m ass/volume)Ordered By: Loren De Souza on 03-31-2025 Glucose [Mass/Vol] 98 mg/dL 70-99 [facility] Serum or plasma calcium hema urement (mass/volume)Ordered By: Loren De Souza on 03-31-2025 Calcium [Mass/Vol] 8.7 mg/dL 7.6-11.0 [facility] Serum or plasma urea nitroge n measurement (mass/volume)Ordered By: Loren De Souza on 03-31-2025 Urea nitrogen [Mass/Vol] 12 mg/dL 4-19 [facility] Sodium levelOrdered By: Loren De Souza on 03-31-2025 Sodium [Moles/Vol] 141 mmol/L 133-145 [facility] White blood cell (WBC) count Ordered By: Loren De Souza on 03-31-2025 WBC (Bld) [#/Vol] 6.2 10*3/uL 4.4-11.0 [facility] 12 Lead EKGon 03-30-2025 12 Lead EKG [facility] Cardiovascular Services [address] [place] [address] 12 Lead EKG 03/31/25 0520 MR#: [id number] Acct: [id number] Name: GUMARO CARRASQUILLO Rep #: [id number] : 1955 70 From: Stoney Veronica MD [...] UNCONFIRMED Confirmed by GLENYS GARCIA, STONEY ([id number]), order editor ANTHONY HADLEY ([id number]) on 04/01/2025 8:25:56 AM Referred By: GURU Confirmed By: STONEY VERONICA MD 04/01/25 0826 Date Stoney Veronica MD CC: Dr. Khushboo Dudley MD; Dr. Johana Neff DO; Dr. Eleazar Gonzalez MD Signed Normal [facility] Basic Metabolic Profile (BMP )on 03-30-2025 BUN/CRE 15.0 RATIO Normal - [facility] Comment on above: Performed By: #### L 501.9187, L100.0100, L506.0400, L500.4050, L501.9520 #### [facility] [address] [place], [address] Calcium [Mass/Vol] 8.8 mg/dL Normal 7.6-11.0 [facility] Comment on above: Performed By: #### L 501.9187, L100.0100, L506.0400, L500.4050, L501.9520 #### [facility] [address] [place], [address] Chloride [Moles/Vol] 110 mmol/L High 98-108 [facility] Comment on above: Performed By: #### L 501.9187, L100.0100, L506.0400, L500.4050, L501.9520 #### [facility] [address] [place], [address] CO2 [Moles/Vol] 22.8 mmol/L Normal 21.0-32.0 [facility] Comment on above: Performed By: #### L 501.9187, L100.0100, L506.0400, L500.4050, L501.9520 #### [facility] [address] [place], [address] Creatinine [Mass/Vol] 0.74 mg/dL Normal 0.70-1.20 [facility] Comment on above: Performed By: #### L 501.9187, L100.0100, L506.0400, L500.4050, L501.9520 #### [facility] [address] [place], [address] ECRCL 76.00 ml/min Normal 50-250 [facility] Comment on above: Performed By: #### L 501.9187, L100.0100, L506.0400, L500.4050, L501.9520 #### [facility] [address] [place], [address] GAP 9 Normal 5-15 [facility] Comment on above: Performed By: #### L 501.9187, L100.0100, L506.0400, L500.4050, L501.9520 #### [facility] [address] [place], [address] GFR/1.73 sq M.predicted among non-blacks MDRD (S/P/Bld) [Vol rate/Area] 87 mL/min/{1.73_m2} Normal >60 [facility] Comment on above: Result Comment: mL/m in/1.73m2 CKD-EPI Creatinine Equation (2020) Performed By: #### L 501.9187, L100.0100, L506.0400, L500.4050, L501.9520 #### [facility] [address] [place], [address] Glucose [Mass/Vol] 102 mg/dL High 70-99 [facility] Comment on above: Performed By: #### L 501.9187, L100.0100, L506.0400, L500.4050, L501.9520 #### [facility] [address] [place], [address] Potassium [Moles/Vol] 3.9 mmol/L Normal 3.3-5.1 [facility] Comment on above: Performed By: #### L 501.9187, L100.0100, L506.0400, L500.4050, L501.9520 #### [facility] [address] [place], [address] Sodium [Moles/Vol] 142 mmol/L Normal 133-145 [facility] Comment on above: Performed By: #### L 501.9187, L100.0100, L506.0400, L500.4050, L501.9520 #### [facility] [address] [place], [address] Urea nitrogen [Mass/Vol] 11 mg/dL Normal 4-19 [facility] Comment on above: Performed By: #### L 501.9187, L100.0100, L506.0400, L500.4050, L501.9520 #### [facility] [address] [place], [address] CBC W/Diff, Automatedon -10 20-2024 Absolute Lymph 1.53 X10 3/uL Normal 0.83-4.51 [facility] Comment on above: Performed By: #### L 501.9187, L100.0100, L506.0400, L500.4050, L501.9520 #### [facility] [address] [place], [address] Absolute Neut 3.6 X10 3/uL Normal 2.0-7.7 [facility] Comment on above: Performed By: #### L 501.9187, L100.0100, L506.0400, L500.4050, L501.9520 #### [facility] [address] [place], [address] Basophils/100 WBC (Bld) 0.3 % Normal 0-1 [facility] Comment on above: Performed By: #### L 501.9187, L100.0100, L506.0400, L500.4050, L501.9520 #### [facility] [address] [place], [address] Eosinophils/100 WBC (Bld) 2.0 % Normal 0-5 [facility] Comment on above: Performed By: #### L 501.9187, L100.0100, L506.0400, L500.4050, L501.9520 #### [facility] [address] [place], [address] Erythrocyte distribution width (RBC) [Ratio] 12.7 % Normal 11.6-14.6 [facility] Comment on above: Performed By: #### L 501.9187, L100.0100, L506.0400, L500.4050, L501.9520 #### [facility] [address] [place], [address] Hematocrit (Bld) [Volume fraction] 37.3 % Normal 37-47 [facility] Comment on above: Performed By: #### L 501.9187, L100.0100, L506.0400, L500.4050, L501.9520 #### [facility] [address] [place], [address] Hemoglobin (Bld) [Mass/Vol] 12.8 g/dL Normal 12.0-15.0 [facility] Comment on above: Performed By: #### L 501.9187, L100.0100, L506.0400, L500.4050, L501.9520 #### [facility] [address] [place], [address] IG% 0.500 Normal 0.0-0.9 [facility] Comment on above: Result Comment: IG% - Immature Granulocytes (promyelocytes, myelocytes and metamyelocytes) > 1% indicates that a LEFT SHIFT is Present. Performed By: #### L 501.9187, L100.0100, L506.0400, L500.4050, L501.9520 #### [facility] [address] [place], [address] Lymphocytes/100 WBC (Bld) 25.9 % Normal 19-41 [facility] Comment on above: Performed By: #### L 501.9187, L100.0100, L506.0400, L500.4050, L501.9520 #### [facility] [address] [place], [address] MCH (RBC) [Entitic mass] 32.7 pg High 27.0-32.0 [facility] Comment on above: Performed By: #### L 501.9187, L100.0100, L506.0400, L500.4050, L501.9520 #### [facility] [address] [place], [address] MCHC (RBC) [Mass/Vol] 34.3 g/dL Normal 32-36 [facility] Comment on above: Performed By: #### L 501.9187, L100.0100, L506.0400, L500.4050, L501.9520 #### [facility] [address] [place], [address] MCV (RBC) [Entitic vol] 95.4 fL Normal 81-99 [facility] Comment on above: Performed By: #### L 501.9187, L100.0100, L506.0400, L500.4050, L501.9520 #### [facility] [address] [place], [address] Monocytes/100 WBC (Bld) 10.3 % High 0-10 [facility] Comment on above: Performed By: #### L 501.9187, L100.0100, L506.0400, L500.4050, L501.9520 #### [facility] [address] [place], [address] Neutrophils/100 WBC (Bld) 61.0 % Normal 47-70 [facility] Comment on above: Performed By: #### L 501.9187, L100.0100, L506.0400, L500.4050, L501.9520 #### [facility] [address] [place], [address] Nucleated RBC (Bld) [#/Vol] 0 10*3/uL Normal 0-5 [facility] Comment on above: Performed By: #### L 501.9187, L100.0100, L506.0400, L500.4050, L501.9520 #### [facility] [address] [place], [address] Platelet mean volume (Bld) [Entitic vol] 10.1 fL Normal 6.2-12.0 [facility] Comment on above: Performed By: #### L 501.9187, L100.0100, L506.0400, L500.4050, L501.9520 #### [facility] [address] [place], [address] Platelets (Bld) [#/Vol] 125 10*3/uL Low 150-450 [facility] Comment on above: Performed By: #### L 501.9187, L100.0100, L506.0400, L500.4050, L501.9520 #### [facility] [address] [place], [address] RBC (Bld) [#/Vol] 3.91 10*6/uL Low 4.2-5.4 [facility] Comment on above: Performed By: #### L 501.9187, L100.0100, L506.0400, L500.4050, L501.9520 #### [facility] [address] [place], [address] RDW SD 43.7 fl Normal 35.1-43.9 [facility] Comment on above: Performed By: #### L 501.9187, L100.0100, L506.0400, L500.4050, L501.9520 #### [facility] [address] [place], [address] WBC (Bld) [#/Vol] 5.9 10*3/uL Normal 4.4-11.0 [facility] Comment on above: Performed By: #### L 501.9187, L100.0100, L506.0400, L500.4050, L501.9520 #### [facility] [address] [place], [address] Basic Metabolic Profile (BMP )on 03-29-2025 BUN/CRE 16.2 RATIO Normal 10-20 [facility] Comment on above: Performed By: #### L 100.0100, L500.2500 ####[facility] [address] [place], [address] Calcium [Mass/Vol] 8.6 mg/dL Normal 7.6-11.0 [facility] Comment on above: Performed By: #### L 100.0100, L500.2500 ####[facility] [address] [place], [address] Chloride [Moles/Vol] 109 mmol/L High 98-108 [facility] Comment on above: Performed By: #### L 100.0100, L500.2500 ####[facility] [address] [place], [address] CO2 [Moles/Vol] 21.5 mmol/L Normal 21.0-32.0 [facility] Comment on above: Performed By: #### L 100.0100, L500.2500 ####[facility] [address] [place], [address] Creatinine [Mass/Vol] 0.69 mg/dL Low 0.70-1.20 [facility] Comment on above: Performed By: #### L 100.0100, L500.2500 ####[facility] [address] [place], [address] ECRCL 76.00 ml/min Normal 50-250 [facility] Comment on above: Performed By: #### L 100.0100, L500.2500 ####[facility] [address] [place], [address] GAP 9 Normal 5-15 [facility] Comment on above: Performed By: #### L 100.0100, L500.2500 ####[facility] [address] [place], [address] GFR/1.73 sq M.predicted among non-blacks MDRD (S/P/Bld) [Vol rate/Area] 93 mL/min/{1.73_m2} Normal >60 [facility] Comment on above: Result Comment: mL/m in/1.73m2 CKD-EPI Creatinine Equation (2020) Performed By: #### L 100.0100, L500.2500 ####[facility] [address] [place], [address] Glucose [Mass/Vol] 98 mg/dL Normal 70-99 [facility] Comment on above: Performed By: #### L 100.0100, L500.2500 ####[facility] [address] [place], [address] Potassium [Moles/Vol] 3.8 mmol/L Normal 3.3-5.1 [facility] Comment on above: Performed By: #### L 100.0100, L500.2500 ####[facility] [address] [place], [address] Sodium [Moles/Vol] 140 mmol/L Normal 133-145 [facility] Comment on above: Performed By: #### L 100.0100, L500.2500 ####[facility] [address] [place], [address] Urea nitrogen [Mass/Vol] 11 mg/dL Normal 4-19 [facility] Comment on above: Performed By: #### L 100.0100, L500.2500 ####[facility] [address] [place], [address] CBC W/Diff, Automatedon 03-16 Absolute Lymph 1.20 X10 3/uL Normal 0.83-4.51 [facility] Comment on above: Performed By: #### L 100.0100, L500.2500 #### [facility] [address] [place], [address] Absolute Neut 4.4 X10 3/uL Normal 2.0-7.7 [facility] Comment on above: Performed By: #### L 100.0100, L500.2500 #### [facility] [address] [place], [address] Basophils/100 WBC (Bld) 0.3 % Normal 0-1 [facility] Comment on above: Performed By: #### L 100.0100, L500.2500 #### [facility] [address] [place], [address] Eosinophils/100 WBC (Bld) 1.1 % Normal 0-5 [facility] Comment on above: Performed By: #### L 100.0100, L500.2500 #### [facility] [address] [place], [address] Erythrocyte distribution width (RBC) [Ratio] 12.7 % Normal 11.6-14.6 [facility] Comment on above: Performed By: #### L 100.0100, L500.2500 #### [facility] [address] [place], [address] Hematocrit (Bld) [Volume fraction] 33.9 % Low 37-47 [facility] Comment on above: Performed By: #### L 100.0100, L500.2500 #### [facility] [address] [place], [address] Hemoglobin (Bld) [Mass/Vol] 11.5 g/dL Low 12.0-15.0 [facility] Comment on above: Performed By: #### L 100.0100, L500.2500 #### [facility] [address] [place], [address] IG% 0.500 Normal 0.0-0.9 [facility] Comment on above: Result Comment: IG% - Immature Granulocytes (promyelocytes, myelocytes and metamyelocytes) > 1% indicates that a LEFT SHIFT is Present. Performed By: #### L 100.0100, L500.2500 #### [facility] [address] [place], [address] Lymphocytes/100 WBC (Bld) 18.9 % Low 19-41 [facility] Comment on above: Performed By: #### L 100.0100, L500.2500 #### [facility] [address] [place], [address] MCH (RBC) [Entitic mass] 32.4 pg High 27.0-32.0 [facility] Comment on above: Performed By: #### L 100.0100, L500.2500 #### [facility] [address] [place], [address] MCHC (RBC) [Mass/Vol] 33.9 g/dL Normal 32-36 [facility] Comment on above: Performed By: #### L 100.0100, L500.2500 #### [facility] [address] [place], [address] MCV (RBC) [Entitic vol] 95.5 fL Normal 81-99 [facility] Comment on above: Performed By: #### L 100.0100, L500.2500 #### [facility] [address] [place], [address] Monocytes/100 WBC (Bld) 9.4 % Normal 0-10 [facility] Comment on above: Performed By: #### L 100.0100, L500.2500 #### [facility] [address] [place], [address] Neutrophils/100 WBC (Bld) 69.8 % Normal 47-70 [facility] Comment on above: Performed By: #### L 100.0100, L500.2500 #### [facility] [address] [place], [address] Nucleated RBC (Bld) [#/Vol] 0 10*3/uL Normal 0-5 [facility] Comment on above: Performed By: #### L 100.0100, L500.2500 #### [facility] [address] [place], [address] Platelet mean volume (Bld) [Entitic vol] 10.1 fL Normal 6.2-12.0 [facility] Comment on above: Performed By: #### L 100.0100, L500.2500 #### [facility] [address] [place], [address] Platelets (Bld) [#/Vol] 116 10*3/uL Low 150-450 [facility] Comment on above: Performed By: #### L 100.0100, L500.2500 #### [facility] [address] [place], [address] RBC (Bld) [#/Vol] 3.55 10*6/uL Low 4.2-5.4 [facility] Comment on above: Performed By: #### L 100.0100, L500.2500 #### [facility] [address] [place], [address] RDW SD 44.3 fl High 35.1-43.9 [facility] Comment on above: Performed By: #### L 100.0100, L500.2500 #### [facility] [address] [place], [address] WBC (Bld) [#/Vol] 6.4 10*3/uL Normal 4.4-11.0 [facility] Comment on above: Performed By: #### L 100.0100, L500.2500 #### [facility] [address] [place], [address] Consultation - Cardiologyon 03-29-2025 Consultation - Cardiology [facility] Medical Records Department [address] [place] [address] Consultation - Cardiology 03/29/25 1017 MR#: [id number] Acct: [id number] Name: GUMARO CARRASQUILLO Rep #: [id number] : 1955 70 From: Jimi Flores MD PCP: Dr. Khushboo Dudley MD Status:ADM IN Location: [place] [address] Assessment Plan Assessment/Plan (1) CAD (coronary artery [...] troponins have been within normal limits. [facility] Medical History (Updated 03/28/25 @ 23:10 by [...] Reaction Status Date / Time cefaclor (From [facility]) Allergy Hives Verified 03/28/25 14:25 latex Allergy [...] 03/29/25 08:09 (more content not included)... Normal [facility] Echo Completeon 03-29-2025 Echo Complete [facility] Services [address] [place] [address] Echo Complete 03/29/25 0856 MR#: [id number] Acct: [id number] Name: GUMARO CARRASQUILLO Rep #: [id number] : 1955 70 From: Jimi Flores MD [...] Dictated: 03/29/25 0856 Date Transcribed: 03/29/25 1210 Wire Spinner: [facility] Echocardiogram study reportO rdered By: Jimi Flores on 03-29-2025 Study report [facility] Cardi[facility] [place] [address] Echo Complete 03/29/25 0856 MR#: [id number] Acct: [id number] Name: GUMARO CARRASQUILLO Rep #:[id number] : 1955 70 From: Jimi Flores MD Attending Dr: Dr. Loren De Souza MD Status: ADM IN Ordering Dr: Loren De Souza MD Date: 03/29/25 Location: [facility] Sex: F C Admitted: 03/28/25 Reason [...] Dictated: 03/29/25 0856 Date Transcribed: 03/29/25 1210 Wire Spinner: Signed [facility] Absolute lymphocyte countOrd ered By: Davey Bosch on 03-28-2025 Lymphocytes Auto (Unsp spec) [#/Vol] 1.09 10*3/uL 0.83-4.51 [facility] Absolute neutrophil countOrd ered By: Davey Bosch on 03-28-2025 Neutrophils (Bld) [#/Vol] 4.8 10*3/uL 2.0-7.7 [facility] Activated partial thrombopla stin time (aPTT) in platelet poor plasma by coagulation aOrdered By: Davey Bosch on 03-28-2025 aPTT Coag (PPP) [Time] 26.6 s 24.1-36.2 [facility] Anion gap in Serum or Plasma Ordered By: Davey Bosch on 03-28-2025 Anion gap [Moles/Vol] 11 mmol/L 5-15 [facility] Automated lymphocyte count a s percentage of total leukocytesOrdered By: Davey Bosch on 03-28-2025 Lymphocytes/100 WBC Auto (Unsp spec) 16.3 % Low 19- [facility] BUN/creatinine ratioOrdered By: Davey Bosch on 03-28-2025 Urea nitrogen/Creatinine [Mass ratio] 14.6 mg/mg - [facility] Basic Metabolic Profile (BMP )on 03-28-2025 BUN/CRE 14.6 RATIO Normal 08-04 [facility] Comment on above: Performed By: #### L 501.9187, L100.0100, L506.0400, L500.4050, L501.9520 #### [facility] Laboratory [address] [place], [address] Calcium [Mass/Vol] 8.9 mg/dL Normal 7.6-11.0 [facility] Comment on above: Performed By: #### L 501.9187, L100.0100, L506.0400, L500.4050, L501.9520 #### [facility] [address] [place], [address] Chloride [Moles/Vol] 107 mmol/L Normal 98-108 [facility] Comment on above: Performed By: #### L 501.9187, L100.0100, L506.0400, L500.4050, L501.9520 #### [facility] [address] [place], [address] CO2 [Moles/Vol] 22.0 mmol/L Normal 21.0-32.0 [facility] Comment on above: Performed By: #### L 501.9187, L100.0100, L506.0400, L500.4050, L501.9520 #### [facility] [address] [place], [address] Creatinine [Mass/Vol] 0.89 mg/dL Normal 0.70-1.20 [facility] Comment on above: Performed By: #### L 501.9187, L100.0100, L506.0400, L500.4050, L501.9520 #### [facility] [address] [place], [address] ECRCL 68.48 ml/min Normal 50-250 [facility] Comment on above: Performed By: #### L 501.9187, L100.0100, L506.0400, L500.4050, L501.9520 #### [facility] [address] [place], [address] GAP 11 Normal 5-15 [facility] Comment on above: Performed By: #### L 501.9187, L100.0100, L506.0400, L500.4050, L501.9520 #### [facility] [address] [place], [address] GFR/1.73 sq M.predicted among non-blacks MDRD (S/P/Bld) [Vol rate/Area] 69 mL/min/{1.73_m2} Normal >60 [facility] Comment on above: Result Comment: mL/m in/1.73m2 CKD-EPI Creatinine Equation (2020) Performed By: #### L 501.9187, L100.0100, L506.0400, L500.4050, L501.9520 #### [facility] [address] [place], [address] Glucose [Mass/Vol] 122 mg/dL High 70-99 [facility] Comment on above: Performed By: #### L 501.9187, L100.0100, L506.0400, L500.4050, L501.9520 #### [facility] [address] [place], [address] Potassium [Moles/Vol] 3.7 mmol/L Normal 3.3-5.1 [facility] Comment on above: Performed By: #### L 501.9187, L100.0100, L506.0400, L500.4050, L501.9520 #### [facility] [address] [place], [address] Sodium [Moles/Vol] 140 mmol/L Normal 133-145 [facility] Comment on above: Performed By: #### L 501.9187, L100.0100, L506.0400, L500.4050, L501.9520 #### [facility] [address] [place], [address] Urea nitrogen [Mass/Vol] 13 mg/dL Normal 4-19 [facility] Comment on above: Performed By: #### L 501.9187, L100.0100, L506.0400, L500.4050, L501.9520 #### [facility] [address] [place], [address] Basophil percentageOrdered B y: Davey Bosch on 03-28-2025 Basophils/100 WBC (Bld) 0.4 % 0-1 [facility] CBC W/Diff, Automatedon 03-16 Absolute Lymph 1.09 X10 3/uL Normal 0.83-4.51 [facility] Comment on above: Performed By: #### L 501.9187, L100.0100, L506.0400, L500.4050, L501.9520 #### [facility] [address] [place], [address] Absolute Neut 4.8 X10 3/uL Normal 2.0-7.7 [facility] Comment on above: Performed By: #### L 501.9187, L100.0100, L506.0400, L500.4050, L501.9520 #### [facility] [address] [place], [address] Basophils/100 WBC (Bld) 0.4 % Normal 0-1 [facility] Comment on above: Performed By: #### L 501.9187, L100.0100, L506.0400, L500.4050, L501.9520 #### [facility] [address] [place], [address] Eosinophils/100 WBC (Bld) 0.6 % Normal 0-5 [facility] Comment on above: Performed By: #### L 501.9187, L100.0100, L506.0400, L500.4050, L501.9520 #### [facility] [address] [place], [address] Erythrocyte distribution width (RBC) [Ratio] 12.7 % Normal 11.6-14.6 [facility] Comment on above: Performed By: #### L 501.9187, L100.0100, L506.0400, L500.4050, L501.9520 #### [facility] [address] [place], [address] Hematocrit (Bld) [Volume fraction] 37.2 % Normal 37-47 [facility] Comment on above: Performed By: #### L 501.9187, L100.0100, L506.0400, L500.4050, L501.9520 #### [facility] [address] [place], [address] Hemoglobin (Bld) [Mass/Vol] 12.6 g/dL Normal 12.0-15.0 [facility] Comment on above: Performed By: #### L 501.9187, L100.0100, L506.0400, L500.4050, L501.9520 #### [facility] [address] [place], [address] IG% 0.600 Normal 0.0-0.9 [facility] Comment on above: Result Comment: IG% - Immature Granulocytes (promyelocytes, myelocytes and metamyelocytes) > 1% indicates that a LEFT SHIFT is Present. Performed By: #### L 501.9187, L100.0100, L506.0400, L500.4050, L501.9520 #### [facility] [address] [place], [address] Lymphocytes/100 WBC (Bld) 16.3 % Low 19-41 [facility] Comment on above: Performed By: #### L 501.9187, L100.0100, L506.0400, L500.4050, L501.9520 #### [facility] [address] [place], [address] MCH (RBC) [Entitic mass] 32.6 pg High 27.0-32.0 [facility] Comment on above: Performed By: #### L 501.9187, L100.0100, L506.0400, L500.4050, L501.9520 #### [facility] [address] [place], [address] MCHC (RBC) [Mass/Vol] 33.9 g/dL Normal 32-36 [facility] Comment on above: Performed By: #### L 501.9187, L100.0100, L506.0400, L500.4050, L501.9520 #### [facility] [address] [place], [address] MCV (RBC) [Entitic vol] 96.4 fL Normal 81-99 [facility] Comment on above: Performed By: #### L 501.9187, L100.0100, L506.0400, L500.4050, L501.9520 #### [facility] [address] [place], [address] Monocytes/100 WBC (Bld) 9.9 % Normal 0-10 [facility] Comment on above: Performed By: #### L 501.9187, L100.0100, L506.0400, L500.4050, L501.9520 #### [facility] [address] [place], [address] Neutrophils/100 WBC (Bld) 72.2 % High 47-70 [facility] Comment on above: Performed By: #### L 501.9187, L100.0100, L506.0400, L500.4050, L501.9520 #### [facility] [address] [place], [address] Nucleated RBC (Bld) [#/Vol] 0 10*3/uL Normal 0-5 [facility] Comment on above: Performed By: #### L 501.9187, L100.0100, L506.0400, L500.4050, L501.9520 #### [facility] [address] [place], [address] Platelet mean volume (Bld) [Entitic vol] 9.7 fL Normal 6.2-12.0 [facility] Comment on above: Performed By: #### L 501.9187, L100.0100, L506.0400, L500.4050, L501.9520 #### [facility] [address] [place], [address] Platelets (Bld) [#/Vol] 123 10*3/uL Low 150-450 [facility] Comment on above: Performed By: #### L 501.9187, L100.0100, L506.0400, L500.4050, L501.9520 #### [facility] [address] [place], [address] RBC (Bld) [#/Vol] 3.86 10*6/uL Low 4.2-5.4 [facility] Comment on above: Performed By: #### L 501.9187, L100.0100, L506.0400, L500.4050, L501.9520 #### [facility] [address] [place], [address] RDW SD 44.6 fl High 35.1-43.9 [facility] Comment on above: Performed By: #### L 501.9187, L100.0100, L506.0400, L500.4050, L501.9520 #### [facility] [address] [place], [address] WBC (Bld) [#/Vol] 6.7 10*3/uL Normal 4.4-11.0 [facility] Comment on above: Performed By: #### L 501.9187, L100.0100, L506.0400, L500.4050, L501.9520 #### [facility] [address] [place], [address] Calculated very low density lipoprotein (VLDL) cholesterol measurementOrdered By: Loren De Souza on 03-28-2025 Calculated very low density lipoprotein (VLDL) cholesterol measurement 11 mg/dL 5-40 [facility] Carbon dioxide, total [Moles /volume] in Central venous bloodOrdered By: Davey Bosch on 03-28-2025 CO2 [Moles/Vol] 22.0 mmol/L 21.0-32.0 [facility] Chest 1 View (Portable)on Chest 1 View (Portable) [facility] Imaging Services [address] [place] [address] Chest 1 View (Portable) MR#: [id number] Acct: [id number] Name: GUMARO CARRASQUILLO Rep #: [id number] : 1955 F 70 From: Jamil Bosch MD PCP: Dr. Khushboo Dudley MD Status: REG ER Study: Chest 1 View (Portable) Date of Exam: 03/28/25 Exam# [id number] Ordering Dr: Davey Bosch DO EXAM: XR Chest, 1 View CLINICAL INDICATION: CHEST PAIN TECHNIQUE: Frontal view of the chest. COMPARISON: No relevant prior studies available. FINDINGS: LUNGS AND PLEURAL SPACES: See below. HEART: Cardiomegaly with mild congestion. MEDIASTINUM: Unremarkable. Normal mediastinal contour. BONES/JOINTS: Unremarkable. No acute fracture. RAD/Chest 1 View (Portable) IMPRESSION: Cardiomegaly with mild congestion. Reading Location: [facility] CC: Dr. Khushboo Dudley MD; Dr. Davey Bosch DO Wire Spinner: Signed Normal [facility] Chloride assayOrdered By: Олег Bosch on 03-28-2025 Chloride [Moles/Vol] 107 mmol/L 98-108 [facility] Emergency Department Summary on 03-28-2025 Emergency Department Summary [facility] Medical Records Department [address] [place] [address] Emergency Department Summary 03/28/25 MR#: [id number] Acct: [id number] Name: GUMARO CARRASQUILLO Rep #: [id number] : 1955 70 From: Davey Ross PCP: Dr. Khushboo Dudley MD Status:ADM IN Location: [place] [address] HPI History of Present Illness Chief Complaint: [...] Reaction Status Date / Time cefaclor (From [facility]) Allergy Hives Verified 03/28/25 14:25 latex Allergy [...] Delivery Method (more content not included)... Normal [facility] Eosinophil percentageOrdered By: Davey Bosch on 03-28-2025 Eosinophils/100 WBC (Bld) 0.6 % 0-5 [facility] Erythrocyte distribution wid th ratioOrdered By: Davey Bosch on 03-28-2025 Erythrocyte distribution width (RBC) [Ratio] 12.7 % 11.6-14.6 [facility] Erythrocyte distribution wid th standard deviationOrdered By: Davey Bosch on 03-28-2025 Erythrocyte distribution width (RBC) [Ratio] 44.6 fl High 35.1-43.9 [facility] Glomerular filtration rate ( GFR) estimation/1.73 sq m using serum, plasma, or whole bOrdered By: Davey Bosch on 03-28-2025 GFR/1.73 sq M.predicted among non-blacks MDRD (S/P/Bld) [Vol rate/Area] 69 mL/min/{1.73_m2} >60 [facility] Comment on above: mL/min/1.73m2 CKD-EP I Creatinine Equation (2020) H AND P Exam - [facility] 03-28-2025 H&P Exam - Hospitalist [facility] Medical Records Department [address] [place] [address] H P Exam - Hospitalist 03/28/25 1733 MR#: [id number] Acct: [id number] Name: GUMARO CARRASQUILLO Rep #: [id number] : 1955 70 From: Loren De Souza MD PCP: Dr. Khushboo Dudley MD Status:[facility]M [facility] - [facility] General Date of Admission: [...] on account of abnormal stress test. [facility] Medical History (Updated 03/28/25 @ 19:05 by [...] Reaction Status Date / Time cefaclor (From [facility]) Allergy Hives Verified 03/28/25 14:25 latex Allergy [...] Psychiatric Psychi (more content not included)... Normal [facility] Hematocrit Auto (Bld) [Volum e fraction]Ordered By: Davey Bosch on 03-28-2025 Hematocrit (Bld) [Volume fraction] 37.2 % 37-47 [facility] Hemoglobin A1con 03-28-2025 HbA1c (Bld) [Mass fraction] 5.8 % High <=5.6 [facility] Comment on above: Result Comment: Norm al < 5.7 % Prediabetic 5.7 - 6.4 % Diabetic >or= 6.5 % Please note range changes. Performed By: #### L 501.9985 ####[facility] [address] [place], [address] Hemoglobin A1c percentageOrd ered By: Loren De Souza on 03-28-2025 HbA1c (Bld) [Mass fraction] 5.8 % High <5.7 [facility] Comment on above: Normal < 5.7 % Predi abetic 5.7 - 6.4 % Diabetic >or= 6.5 % Please note range changes. Hemoglobin measurementOrdere d By: Davey Bosch on 03-28-2025 Hemoglobin (Bld) [Mass/Vol] 12.6 g/dL 12.0-15.0 [facility] Immature granulocytes/100 WB C Auto (Bld)Ordered By: Davey Bosch on 03-28-2025 Immature granulocytes/100 WBC (Bld) 0.600 % 0.0-0.9 [facility] Comment on above: IG% - Immature Granu locytes (promyelocytes, myelocytes and metamyelocytes) > 1% indicates that a LEFT SHIFT is Present. International normalized rat io (INR) calculationOrdered By: Davey Bosch on 03-28-2025 INR Coag (Bld) [Relative time] 1.0 {INR} [facility] L499.0042on 03-28-2025 Trop T High Sen 9 ng/L Normal <=14 [facility] Comment on above: Performed By: #### L 499.0042 ####[facility] [address] [place], [address] L499.0043on 03-28-2025 Trop T High Sen 9 ng/L Normal <=14 [facility] Comment on above: Performed By: #### L 499.0043 ####[facility] [address] [place], [address] L501.4021on 03-28-2025 Trop T High Sen 8 ng/L Normal <=14 [facility] Comment on above: Performed By: #### L 501.9187, L100.0100, L506.0400, L500.4050, L501.9520 #### [facility] Laboratory [address] [place], [address] LDL calc ser/plasOrdered By: Loren De Souza on 03-28-2025 Cholesterol in LDL [Mass/Vol] 100 mg/dL [facility] Comment on above: Jwrpqumlxy=023-808 m g/dL & Higher Knig=867 mg/dL or greater Lipid Profileon 03-28-2025 CHOL:HDL 2.98 Normal [facility] Comment on above: Performed By: #### L 500.4100 ####[facility] [address] [place], [address] Cholesterol [Mass/Vol] 166 mg/dL Normal <=200 [facility] Comment on above: Result Comment: Chol esterol level, Desirable <200 mg/dL Borderline high cholesterol 200-239 mg/dL High cholesterol >=240 mg/dL Recommendations of the NCEP Adult Treatment Panel for the following risk-cutoff thresholds for the [place] population. Performed By: #### L 500.4100 ####[facility] [address] [place], [address] Cholesterol in HDL [Mass/Vol] 56 mg/dL Normal [facility] Comment on above: Result Comment: Laila onal Cholesterol Education Program (NCEP) guidelines: <40 mg/dL: Low HDL-cholesterol (major risk factor for CHD) >= 60 mg/dL: High HDL-cholesterol (negative risk factor for CHD) HDL-cholesterol is affected by a number of factors, e.g. smoking, exercise, hormones, sex and age. Performed By: #### L 500.4100 ####[facility] [address] [facility] [address] Cholesterol in LDL [Mass/Vol] 100 mg/dL Normal [facility] Comment on above: Result Comment: Bord kktztf=584-517 mg/dL Higher Rfpk=633 mg/dL or greater Performed By: #### L 500.4100 ####[facility] [address] [place] [id number] Cholesterol in VLDL [Mass/Vol] 11 mg/dL Normal 5-40 [facility] Comment on above: Performed By: #### L 500.4100 ####[facility] [address] [facility] [address] Triglyceride [Mass/Vol] 54 mg/dL Normal [facility] Comment on above: Result Comment: The drugs N-Acetylcysteine and Metamizole may falsely depress this assay. Normal range: <150 mg/dL Borderline High: 150-199 mg/dL High: 200-499 mg/dL Very High: >500 mg/dL Performed By: #### L 500.4100 ####[facility] [address] [place] [id number] MCV (mean corpuscular volume ) determinationOrdered By: Davey Bosch on 03-28-2025 MCV (RBC) [Entitic vol] 96.4 fL 81-99 [facility] Mean corpuscular hemoglobin (MCH) determinationOrdered By: Davey Bosch on 03-28-2025 MCH (RBC) [Entitic mass] 32.6 pg High 27.0-32.0 [facility] Mean corpuscular hemoglobin concentration (MCHC) determinationOrdered By: Davey Bosch on 03-28-2025 MCHC (RBC) [Mass/Vol] 33.9 g/dL 32-36 [facility] Mean platelet volume determi nationOrdered By: Davey Bosch on 03-28-2025 Platelet mean volume (Bld) [Entitic vol] 9.7 fL 6.2-12.0 [facility] Monocyte percentageOrdered B y: Davey Bosch on 03-28-2025 Monocytes/100 WBC (Bld) 9.9 % 0-10 [facility] Neutrophil percentageOrdered By: Davey Bosch on 03-28-2025 Neutrophils/100 WBC (Bld) 72.2 % High 47-70 [facility] Nucleated red blood cell per centageOrdered By: Davey Bosch on 03-28-2025 Nucleated RBC/100 WBC (Bld) [Ratio] 0 % 0-5 [facility] Partial Thromboplast Timeon 03-28-2025 aPTT Coag (Bld) [Time] 26.6 s Normal 24.1-36.2 [facility] Comment on above: Performed By: #### L 501.9187, L100.0100, L506.0400, L500.4050, L501.9520 #### [facility] Laboratory [address] [facility] [place], [place], [id number] Platelet countOrdered By: Олег Bosch on 03-28-2025 Platelets (Bld) [#/Vol] 123 10*3/uL Low 150-450 [facility] Potassium measurement (mass/ volume)Ordered By: Davey Bosch on 03-28-2025 Potassium (Unsp spec) [Mass/Vol] 3.7 mmol/L 3.3-5.1 [facility] Prothrombin Time w/INRon INR Coag (PPP) [Relative time] 1.0 {INR} Normal [facility] Comment on above: Performed By: #### L 501.9187, L100.0100, L506.0400, L500.4050, L501.9520 #### [facility] Laboratory [address] [place], [place], [id number] [phone] PT Coag (PPP) [Time] 13.3 s Normal 11.7-14.9 [facility] Comment on above: Performed By: #### L 501.9187, L100.0100, L506.0400, L500.4050, L501.9520 #### [facility] [address] [place], [place], [phone] Prothrombin timeOrdered By: Davey Bosch on 03-28-2025 PT Coag (PPP) [Time] 13.3 s 11.7-14.9 [facility] RBC Auto (Bld) [#/Vol]Ordere d By: Davey Bosch on 03-28-2025 RBC (Bld) [#/Vol] 3.86 10*6/uL Low 4.2-5.4 [facility] Screening total cholesterol/ high density lipoprotein (HDL) cholesterol ratioOrdered By: Loren De Souza on 03-28-2025 Cholesterol.total/Chol esterol in HDL [Mass ratio] 2.98 {ratio} [facility] Serum creatinine measurement (mass/volume)Ordered By: Davey Bosch on 03-28-2025 Creatinine [Mass/Vol] 0.89 mg/dL 0.70-1.20 [facility] Serum glucose measurement (m ass/volume)Ordered By: Davey Bosch on 03-28-2025 Glucose [Mass/Vol] 122 mg/dL High 70-99 [facility] Serum or plasma calcium hema urement (mass/volume)Ordered By: Davey Bosch on 03-28-2025 Calcium [Mass/Vol] 8.9 mg/dL 7.6-11.0 [facility] Serum or plasma cholesterol in HDL measurement (mass/volume)Ordered By: Loren De Souza on 03-28-2025 Cholesterol in HDL [Mass/Vol] 56 mg/dL >40 [facility] Comment on above: National Cholesterol Education Program (NCEP) guidelines:<40 mg/dL: Low HDL-cholesterol (major risk factor for CHD)>= 60 mg/dL: High HDL-cholesterol (negative risk factor for CHD)HDL-cholesterol is affected by a number of factors, e.g. smoking, exercise, hormones, sex and age. Serum or plasma cholesterol measurement (mass/volume)Ordered By: Loren De Souza on 03-28-2025 Cholesterol [Mass/Vol] 166 mg/dL <201 [facility] Comment on above: Cholesterol level, D esirable <200 mg/dLBorderline high cholesterol 200-239 mg/dLHigh cholesterol >=240 mg/dLRecommendations of the NCEP Adult Treatment Panel for the following risk-cutoff thresholds for the [place] population. Serum or plasma urea nitroge n measurement (mass/volume)Ordered By: Davey Bosch on 03-28-2025 Urea nitrogen [Mass/Vol] 13 mg/dL 4-19 [facility] Sodium levelOrdered By: Davey Bosch on 03-28-2025 Sodium [Moles/Vol] 140 mmol/L 133-145 [facility] Triglycerides measurementOrd ered By: Loren De Souza on 03-28-2025 Triglyceride [Mass/Vol] 54 mg/dL <199 [facility] Comment on above: The drugs N-Acetylcy steine and Metamizole may falsely depress this assay. Normal range: <150 mg/dLBorderline High: 150-199 mg/dLHigh: 200-499 mg/dLVery High: >500 mg/dL Troponin T.cardiac [Mass/vol ume] in Serum or Plasma by High sensitivity methodOrdered By: Davey Bosch on 03-28-2025 Troponin T.cardiac High sensitivity method [Mass/Vol] 9 ng/L <14 [facility] Troponin T.cardiac High sensitivity method [Mass/Vol] 9 ng/L <14 [facility] Troponin T.cardiac High sensitivity method [Mass/Vol] 8 ng/L <14 [facility] White blood cell (WBC) count Ordered By: Davey Bosch on 03-28-2025 WBC (Bld) [#/Vol] 6.7 10*3/uL 4.4-11.0 [facility] r [facility] Cardiovascular stress test r eportOrdered By: Robbi Yu on 03-27-2025 Study report [facility] Cardiovascular Services [address] [place] [address] MR#: [id number] Acct: [id number] Name: GUMARO CARRASQUILLO Rep #: [id number] : 1955 70 From: Robbi Yu MD [...] of 70%. This note was generated with Evoinfinityation software. It may contain incorrectwords, spelling, and punctuation that were not noted in checking the note beforesigning. 03/27/251336 Date _ Robbi Yu MD CC: Dr. Khushboo Dudley MD ~ Date Dictated: 03/27/251334 Date Transcribed: 03/27/251334 Wire Spinner: EVANGELINA Espinosa [facility] Work Phone: Stress Reporton 03-27-2025 Stress Report [facility] Cardiovascular Services [address] [place] [address] MR#: [id number] Acct: [id number] Name: GUMARO CARRASQUILLO Rep #: [id number] : 1955 70 From: Robbi Yu MD Primary Care: Dr. Khushboo Dudley MD Status: REG [facility] Referring Dr: Khushboo Dudley MD Sex: F [...] of 70%. This note was generated with Evoinfinityation software. It may contain incorrect words, spelling, and punctuation that were not noted in checking the note before signing. 03/27/251336 Date Robbi Yu MD CC: Dr. Khushboo Dudley MD Date Dictated: 03/27/251334 Date Transcribed: 03/27/251334 Wire Spinner: EVANGELINA Signed Normal [facility] Breast Limited Unilateralon 03-18-2025 Breast Limited Unilateral [facility] Imaging Services [address] [place], [place] [id number] Breast Limited Unilateral MR#: [id number] Acct: [id number] Name: GUMARO CARRASQUILLO Rep #: [id number] : 1955 F 70 From: Araceli Banerjee MD PCP: Dr. Khushboo Dudley MD Status: REG CLI Study: Breast Limited Unilateral Date of Exam: Exam# [id number] Ordering Dr: Khushboo Dudley MD PROCEDURE: BREAST [...] ANNUAL MAMMOGRAPHIC SCREENING. Reading Location: [facility] CC: Dr. Khushboo Dudley MD Wire Spinner: Signed Normal [facility] Breast imaging reportOrdered By: Araceli Banerjee on 03-07-2025 Study report [facility] Imaging Services [address] [place], [place] [id number] SCRN MAMM (CAD)W/BILLY BILAT MR#: [id number] Acct: [id number] Name: GUMARO CARRASQUILLO Rep #: [id number] : 1955 F 70 From: Zofia Banerjee MD PCP: Dr. Khushboo Dudley MD Status: REG CLI Study:SCRN MAMM (CAD)W/BILLY BILAT Date of Exa m: 03/07/25 Exam# [id number] Ordering Dr: Scott Dudley MD EXAM: SCRN [...] to the patient. Reading Location: [facility] CC: Dr. Khushboo Dudley MD ~ Wire Spinner: Signed [facility] SCRN MAMM (CAD)W/BILLY BILATo n 03-07-2025 SCRN MAMM (CAD)W/BILLY BILAT [facility] Imaging Services [address] [place] [id number] SCRN MAMM (CAD)W/BILLY BILAT MR#: [id number] Acct: [id number] Name: GUMARO CARRASQUILLO Rep #: [id number] : 1955 F 70 From: Araceli Banerjee MD PCP: Dr. Khushboo Dudley MD Status: [facility] Study: SCRN MAMM (CAD)W/BILLY BILAT Date of Exam: 02/14 01/07 Exam# [id number] Ordering Dr: Khushboo Dudley MD EXAM: SCRN [...] to the patient. Reading Location: [facility] CC: Dr. Khushboo Dudley MD Wire Spinner: Signed Normal [facility] Absolute lymphocyte countOrd ered By: Khushboo Dudley on 02-20-2025 Lymphocytes Auto (Unsp spec) [#/Vol] 1.47 10*3/uL 0.83-4.51 [facility] Absolute neutrophil countOrd ered By: Khushboo Dudley on 02-20-2025 Neutrophils (Bld) [#/Vol] 3.8 10*3/uL 2.0-7.7 [facility] Anion gap in Serum or Plasma Ordered By: Khushboo Dudley on 02-20-2025 Anion gap [Moles/Vol] 10 mmol/L 5-15 [facility] Automated lymphocyte count a s percentage of total leukocytesOrdered By: Khushboo Dudley on 02-20-2025 Lymphocytes/100 WBC Auto (Unsp spec) 24.7 % 19-41 [facility] BUN/creatinine ratioOrdered By: Khushboo Dudley on 02-20-2025 Urea nitrogen/Creatinine [Mass ratio] 14.9 mg/mg 10-20 [facility] Basophil percentageOrdered B y: Khushboo Dudley on 02-20-2025 Basophils/100 WBC (Bld) 0.5 % 0-1 [facility] Bilirubin, totalOrdered By: Khushboo Dudley on 02-20-2025 Bilirubin [Mass/Vol] 0.37 mg/dL 0.00-1.30 [facility] CBC W/Diff, Automatedon Absolute Lymph 1.47 X10 3/uL Normal 0.83-4.51 [facility] Comment on above: Performed By: #### L 100.0100, L500.4050, L501.9520, L503.7505, L500.4100 ####[facility] [address] [place], [address] Absolute Neut 3.8 X10 3/uL Normal 2.0-7.7 [facility] Comment on above: Performed By: #### L 100.0100, L500.4050, L501.9520, L503.7505, L500.4100 ####[facility] [address] [place], [address] Basophils/100 WBC (Bld) 0.5 % Normal 0-1 [facility] Comment on above: Performed By: #### L 100.0100, L500.4050, L501.9520, L503.7505, L500.4100 ####[facility] [address] [place], [address] Eosinophils/100 WBC (Bld) 0.8 % Normal 0-5 [facility] Comment on above: Performed By: #### L 100.0100, L500.4050, L501.9520, L503.7505, L500.4100 ####[facility] [address] [place], [address] Erythrocyte distribution width (RBC) [Ratio] 12.7 % Normal 11.6-14.6 [facility] Comment on above: Performed By: #### L 100.0100, L500.4050, L501.9520, L503.7505, L500.4100 ####[facility] [address] [place], [address] Hematocrit (Bld) [Volume fraction] 39.7 % Normal 37-47 [facility] Comment on above: Performed By: #### L 100.0100, L500.4050, L501.9520, L503.7505, L500.4100 ####[facility] [address] [place], [address] Hemoglobin (Bld) [Mass/Vol] 13.1 g/dL Normal 12.0-15.0 [facility] Comment on above: Performed By: #### L 100.0100, L500.4050, L501.9520, L503.7505, L500.4100 ####[facility] [address] [place], [address] IG% 0.200 Normal 0.0-0.9 [facility] Comment on above: Result Comment: IG% - Immature Granulocytes (promyelocytes, myelocytes and metamyelocytes) > 1% indicates that a LEFT SHIFT is Present. Performed By: #### L 100.0100, L500.4050, L501.9520, L503.7505, L500.4100 ####[facility] [address] [place], [address] Lymphocytes/100 WBC (Bld) 24.7 % Normal 19-41 [facility] Comment on above: Performed By: #### L 100.0100, L500.4050, L501.9520, L503.7505, L500.4100 ####[facility] [address] [place], [address] MCH (RBC) [Entitic mass] 32.1 pg High 27.0-32.0 [facility] Comment on above: Performed By: #### L 100.0100, L500.4050, L501.9520, L503.7505, L500.4100 ####[facility] [address] [place], [address] MCHC (RBC) [Mass/Vol] 33.0 g/dL Normal 32-36 [facility] Comment on above: Performed By: #### L 100.0100, L500.4050, L501.9520, L503.7505, L500.4100 ####[facility] [address] [place], [address] MCV (RBC) [Entitic vol] 97.3 fL Normal 81-99 [facility] Comment on above: Performed By: #### L 100.0100, L500.4050, L501.9520, L503.7505, L500.4100 ####[facility] [address] [place], [address] Monocytes/100 WBC (Bld) 9.4 % Normal 0-10 [facility] Comment on above: Performed By: #### L 100.0100, L500.4050, L501.9520, L503.7505, L500.4100 ####[facility] [address] [place], [address] Neutrophils/100 WBC (Bld) 64.4 % Normal 47-70 [facility] Comment on above: Performed By: #### L 100.0100, L500.4050, L501.9520, L503.7505, L500.4100 ####[facility] [address] [place], [address] Nucleated RBC (Bld) [#/Vol] 0 10*3/uL Normal 0-5 [facility] Comment on above: Performed By: #### L 100.0100, L500.4050, L501.9520, L503.7505, L500.4100 ####[facility] [address] [place], [address] Platelet mean volume (Bld) [Entitic vol] 10.5 fL Normal 6.2-12.0 [facility] Comment on above: Performed By: #### L 100.0100, L500.4050, L501.9520, L503.7505, L500.4100 ####[facility] [address] [place], [address] Platelets (Bld) [#/Vol] 140 10*3/uL Low 150-450 [facility] Comment on above: Performed By: #### L 100.0100, L500.4050, L501.9520, L503.7505, L500.4100 ####[facility] [address] [place], [address] RBC (Bld) [#/Vol] 4.08 10*6/uL Low 4.2-5.4 [facility] Comment on above: Performed By: #### L 100.0100, L500.4050, L501.9520, L503.7505, L500.4100 ####[facility] [address] [place], [address] RDW SD 45.8 fl High 35.1-43.9 [facility] Comment on above: Performed By: #### L 100.0100, L500.4050, L501.9520, L503.7505, L500.4100 ####[facility] [address] [place], [address] WBC (Bld) [#/Vol] 5.9 10*3/uL Normal 4.4-11.0 [facility] Comment on above: Performed By: #### L 100.0100, L500.4050, L501.9520, L503.7505, L500.4100 ####[facility] [address] [place], [address] Calculated very low density lipoprotein (VLDL) cholesterol measurementOrdered By: Khushboo Dudley on 02-20-2025 Calculated very low density lipoprotein (VLDL) cholesterol measurement 9 mg/dL 5-40 [facility] Carbon dioxide, total [Moles /volume] in Central venous bloodOrdered By: Khushboo Octavia on 02-20-2025 CO2 [Moles/Vol] 23.1 mmol/L 21.0-32.0 [facility] Chloride assayOrdered By: Hoang reednawaf Octavia on 02-20-2025 Chloride [Moles/Vol] 107 mmol/L 98-108 [facility] Comprehensive Metabolic Prof ilon 02-20-2025 Albumin [Mass/Vol] 4.0 g/dL Normal 3.4-4.8 [facility] Comment on above: Performed By: #### L 100.0100, L500.4050, L501.9520, L503.7505, L500.4100 ####[facility] [address] [place], [address] Albumin/Globulin [Mass ratio] 1.2 {ratio} Normal 0.9-2.4 [facility] Comment on above: Performed By: #### L 100.0100, L500.4050, L501.9520, L503.7505, L500.4100 ####[facility] [address] [place], [address] ALK PHOS 81 U/L Normal 35-104 [facility] Comment on above: Performed By: #### L 100.0100, L500.4050, L501.9520, L503.7505, L500.4100 ####[facility] [address] [place], [address] ALT [Catalytic activity/Vol] 13 U/L Normal <=34 [facility] Comment on above: Performed By: #### L 100.0100, L500.4050, L501.9520, L503.7505, L500.4100 ####[facility] [address] [place], [address] AST [Catalytic activity/Vol] 22 U/L Normal <=31 [facility] Comment on above: Performed By: #### L 100.0100, L500.4050, L501.9520, L503.7505, L500.4100 ####[facility] [address] [place], [address] Bilirubin [Mass/Vol] 0.37 mg/dL Normal 0.00-1.30 [facility] Comment on above: Performed By: #### L 100.0100, L500.4050, L501.9520, L503.7505, L500.4100 ####[facility] [address] [place], [address] BUN/CRE 14.9 RATIO Normal 10-20 [facility] Comment on above: Performed By: #### L 100.0100, L500.4050, L501.9520, L503.7505, L500.4100 ####[facility] [address] [place], [address] Calcium [Mass/Vol] 9.1 mg/dL Normal 7.6-11.0 [facility] Comment on above: Performed By: #### L 100.0100, L500.4050, L501.9520, L503.7505, L500.4100 ####[facility] [address] [place], [address] Chloride [Moles/Vol] 107 mmol/L Normal 98-108 [facility] Comment on above: Performed By: #### L 100.0100, L500.4050, L501.9520, L503.7505, L500.4100 ####[facility] [address] [place], [address] CO2 [Moles/Vol] 23.1 mmol/L Normal 21.0-32.0 [facility] Comment on above: Performed By: #### L 100.0100, L500.4050, L501.9520, L503.7505, L500.4100 ####[facility] [address] [place], [address] Creatinine [Mass/Vol] 0.85 mg/dL Normal 0.70-1.20 [facility] Comment on above: Performed By: #### L 100.0100, L500.4050, L501.9520, L503.7505, L500.4100 ####[facility] [address] [place], [address] GAP 10 Normal 5-15 [facility] Comment on above: Performed By: #### L 100.0100, L500.4050, L501.9520, L503.7505, L500.4100 ####[facility] [address] [place], [address] GFR/1.73 sq M.predicted among non-blacks MDRD (S/P/Bld) [Vol rate/Area] 73 mL/min/{1.73_m2} Normal >60 [facility] Comment on above: Result Comment: mL/m in/1.73m2 CKD-EPI Creatinine Equation (2020) Performed By: #### L 100.0100, L500.4050, L501.9520, L503.7505, L500.4100 ####[facility] [address] [place], [address] Globulin (S) [Mass/Vol] 3.2 g/dL Normal 2.2-4.2 [facility] Comment on above: Performed By: #### L 100.0100, L500.4050, L501.9520, L503.7505, L500.4100 ####[facility] [address] [place], [address] Glucose [Mass/Vol] 99 mg/dL Normal 70-99 [facility] Comment on above: Performed By: #### L 100.0100, L500.4050, L501.9520, L503.7505, L500.4100 ####[facility] [address] [place], [address] Potassium [Moles/Vol] 4.1 mmol/L Normal 3.3-5.1 [facility] Comment on above: Performed By: #### L 100.0100, L500.4050, L501.9520, L503.7505, L500.4100 ####[facility] [address] [place], [address] Sodium [Moles/Vol] 141 mmol/L Normal 133-145 [facility] Comment on above: Performed By: #### L 100.0100, L500.4050, L501.9520, L503.7505, L500.4100 ####[facility] [address] [place], [address] T PROT 7.2 g/dL Normal 5.9-8.4 [facility] Comment on above: Performed By: #### L 100.0100, L500.4050, L501.9520, L503.7505, L500.4100 ####[facility] [address] [place], [address] Urea nitrogen [Mass/Vol] 13 mg/dL Normal 4-19 [facility] Comment on above: Performed By: #### L 100.0100, L500.4050, L501.9520, L503.7505, L500.4100 ####[facility] [address] [place], [address] Eosinophil percentageOrdered By: Khushboo Dudley on 02-20-2025 Eosinophils/100 WBC (Bld) 0.8 % 0-5 [facility] Erythrocyte distribution wid th ratioOrdered By: Khushboo Dudley on 02-20-2025 Erythrocyte distribution width (RBC) [Ratio] 12.7 % 11.6-14.6 [facility] Erythrocyte distribution wid th standard deviationOrdered By: Khushboo Dudley on 02-20-2025 Erythrocyte distribution width (RBC) [Ratio] 45.8 fl High 35.1-43.9 [facility] Glomerular filtration rate ( GFR) estimation/1.73 sq m using serum, plasma, or whole bOrdered By: Khushboo Dudley on 02-20-2025 GFR/1.73 sq M.predicted among non-blacks MDRD (S/P/Bld) [Vol rate/Area] 73 mL/min/{1.73_m2} >60 [facility] Comment on above: mL/min/1.73m2 CKD-EP I Creatinine Equation (2020) Hematocrit Auto (Bld) [Volum e fraction]Ordered By: Khushboo Dudley on 02-20-2025 Hematocrit (Bld) [Volume fraction] 39.7 % 37-47 [facility] Hemoglobin measurementOrdere d By: Khushboo Dudley on 02-20-2025 Hemoglobin (Bld) [Mass/Vol] 13.1 g/dL 12.0-15.0 [facility] Immature granulocytes/100 WB C Auto (Bld)Ordered By: Khushboo Dudley on 02-20-2025 Immature granulocytes/100 WBC (Bld) 0.200 % 0.0-0.9 [facility] Comment on above: IG% - Immature Granu locytes (promyelocytes, myelocytes and metamyelocytes) > 1% indicates that a LEFT SHIFT is Present. L503.7505on 02-20-2025 Natriuretic peptide B (Bld) [Mass/Vol] 320 pg/mL Normal <=900 [facility] Comment on above: Result Comment: Hear t Failure Unlikely: < 300 pg/mL Heart Failure Likely < 50 Years: > 450 pg/mL 50-75 Years: > 900 pg/mL >75 Years: > 1800 pg/mL Performed By: #### L 100.0100, L500.4050, L501.9520, L503.7505, L500.4100 ####[facility] [address] [place], [address] LDL calc ser/plasOrdered By: Khushboo Dudley on 02-20-2025 Cholesterol in LDL [Mass/Vol] 123 mg/dL [facility] Comment on above: Ljiwudastm=716-307 m g/dL & Higher Ycgj=320 mg/dL or greater Laboratory - Chemistry and C hemistry - challengeOrdered By: Khushboo Dudley on 02-20-2025 AST [Catalytic activity/Vol] 22 U/L <32 [facility] Lipid Profileon 02-20-2025 CHOL:HDL 3.33 Normal [facility] Comment on above: Performed By: #### L 100.0100, L500.4050, L501.9520, L503.7505, L500.4100 ####[facility] [address] [place], [address] Cholesterol [Mass/Vol] 188 mg/dL Normal <=200 [facility] Comment on above: Result Comment: Chol esterol level, Desirable <200 mg/dL Borderline high cholesterol 200-239 mg/dL High cholesterol >=240 mg/dL Recommendations of the NCEP Adult Treatment Panel for the following risk-cutoff thresholds for the [place] population. Performed By: #### L 100.0100, L500.4050, L501.9520, L503.7505, L500.4100 ####[facility] [address] [place], [address] Cholesterol in HDL [Mass/Vol] 57 mg/dL Normal [facility] Comment on above: Result Comment: Laila onal Cholesterol Education Program (NCEP) guidelines: <40 mg/dL: Low HDL-cholesterol (major risk factor for CHD) >= 60 mg/dL: High HDL-cholesterol (negative risk factor for CHD) HDL-cholesterol is affected by a number of factors, e.g. smoking, exercise, hormones, sex and age. Performed By: #### L 100.0100, L500.4050, L501.9520, L503.7505, L500.4100 ####[facility] [address] [place], [address] Cholesterol in LDL [Mass/Vol] 123 mg/dL Normal [facility] Comment on above: Result Comment: Bord wblsim=559-596 mg/dL Higher Loym=636 mg/dL or greater Performed By: #### L 100.0100, L500.4050, L501.9520, L503.7505, L500.4100 ####[facility] [address] [place], [address] Cholesterol in VLDL [Mass/Vol] 9 mg/dL Normal 5-40 [facility] Comment on above: Performed By: #### L 100.0100, L500.4050, L501.9520, L503.7505, L500.4100 ####[facility] [address] [place], [address] Triglyceride [Mass/Vol] 44 mg/dL Normal [facility] Comment on above: Result Comment: The drugs N-Acetylcysteine and Metamizole may falsely depress this assay. Normal range: <150 mg/dL Borderline High: 150-199 mg/dL High: 200-499 mg/dL Very High: >500 mg/dL Performed By: #### L 100.0100, L500.4050, L501.9520, L503.7505, L500.4100 ####[facility] [address] [place], [address] MCV (mean corpuscular volume ) determinationOrdered By: Khushboo Dudley on 02-20-2025 MCV (RBC) [Entitic vol] 97.3 fL 81-99 [facility] Mean corpuscular hemoglobin (MCH) determinationOrdered By: Khushboo Dudley on 02-20-2025 MCH (RBC) [Entitic mass] 32.1 pg High 27.0-32.0 [facility] Mean corpuscular hemoglobin concentration (MCHC) determinationOrdered By: Khushboo Dudley on 02-20-2025 MCHC (RBC) [Mass/Vol] 33.0 g/dL 32-36 [facility] Mean platelet volume determi nationOrdered By: Khushboo Dudley on 02-20-2025 Platelet mean volume (Bld) [Entitic vol] 10.5 fL 6.2-12.0 [facility] Monocyte percentageOrdered B y: Khushboo Dudley on 02-20-2025 Monocytes/100 WBC (Bld) 9.4 % 0-10 [facility] Natriuretic peptide.B prohor roland N-Terminal [Mass/volume] in Serum or PlasmaOrdered By: Khushboo Dudley on 02-20-2025 Natriuretic peptide.B prohormone N-Terminal [Mass/Vol] 320 pg/mL <900 [facility] Comment on above: Heart Failure Unlike ly: < 300 pg/mLHeart Failure Likely< 50 Years: > 450 pg/mL50-75 Years: > 900 pg/mL>75 Years: > 1800 pg/mL Neutrophil percentageOrdered By: Khushboo Dudley on 02-20-2025 Neutrophils/100 WBC (Bld) 64.4 % 47-70 [facility] Nucleated red blood cell per centageOrdered By: Khushboo Dudley on 02-20-2025 Nucleated RBC/100 WBC (Bld) [Ratio] 0 % 0-5 [facility] Platelet countOrdered By: Hoang Dudley on 02-20-2025 Platelets (Bld) [#/Vol] 140 10*3/uL Low 150-450 [facility] Potassium measurement (mass/ volume)Ordered By: Khushboo Dudley on 02-20-2025 Potassium (Unsp spec) [Mass/Vol] 4.1 mmol/L 3.3-5.1 [facility] RBC Auto (Bld) [#/Vol]Ordere d By: Khushboo Dudley on 02-20-2025 RBC (Bld) [#/Vol] 4.08 10*6/uL Low 4.2-5.4 [facility] Screening total cholesterol/ high density lipoprotein (HDL) cholesterol ratioOrdered By: Khushboo Dudley on 02-20-2025 Cholesterol.total/Chol esterol in HDL [Mass ratio] 3.33 {ratio} [facility] Serum creatinine measurement (mass/volume)Ordered By: Khushboo Dudley on 02-20-2025 Creatinine [Mass/Vol] 0.85 mg/dL 0.70-1.20 [facility] Serum globulin measurementOr dered By: Khushboo Dudley on 02-20-2025 Globulin (S) [Mass/Vol] 3.2 g/dL 2.2-4.2 [facility] Serum glucose measurement (m ass/volume)Ordered By: Khushboo Dudley on 02-20-2025 Glucose [Mass/Vol] 99 mg/dL 70-99 [facility] Serum or plasma alanine scott otransferase (ALT) measurementOrdered By: Khushboo Dudley on 02-20-2025 ALT [Catalytic activity/Vol] 13 U/L <35 [facility] Serum or plasma albumin hema urement (mass/volume)Ordered By: Khushboo Dudley on 02-20-2025 Albumin [Mass/Vol] 4.0 g/dL 3.4-4.8 [facility] Serum or plasma albumin/glob ulin mass ratioOrdered By: Khushboo Dudley on 02-20-2025 Albumin/Globulin [Mass ratio] 1.2 {ratio} 0.9-2.4 [facility] Serum or plasma alkaline erlin sphatase measurementOrdered By: Khushboo Dudley on 02-20-2025 ALP [Catalytic activity/Vol] 81 U/L 35-104 [facility] Serum or plasma calcium hema urement (mass/volume)Ordered By: Khushboo Dudley on 02-20-2025 Calcium [Mass/Vol] 9.1 mg/dL 7.6-11.0 [facility] Serum or plasma cholesterol in HDL measurement (mass/volume)Ordered By: Khushboo Dudley on 02-20-2025 Cholesterol in HDL [Mass/Vol] 57 mg/dL >40 [facility] Comment on above: National Cholesterol Education Program (NCEP) guidelines:<40 mg/dL: Low HDL-cholesterol (major risk factor for CHD)>= 60 mg/dL: High HDL-cholesterol (negative risk factor for CHD)HDL-cholesterol is affected by a number of factors, e.g. smoking, exercise, hormones, sex and age. Serum or plasma cholesterol measurement (mass/volume)Ordered By: Khushboo Dudley on 02-20-2025 Cholesterol [Mass/Vol] 188 mg/dL <201 [facility] Comment on above: Cholesterol level, D esirable <200 mg/dLBorderline high cholesterol 200-239 mg/dLHigh cholesterol >=240 mg/dLRecommendations of the NCEP Adult Treatment Panel for the following risk-cutoff thresholds for the [place] population. Serum or plasma urea nitroge n measurement (mass/volume)Ordered By: Khushboo Dudley on 02-20-2025 Urea nitrogen [Mass/Vol] 13 mg/dL 4-19 [facility] Sodium levelOrdered By: Donnie Dudley on 02-20-2025 Sodium [Moles/Vol] 141 mmol/L 133-145 [facility] TSH DL <= 0.005 mIU/L QnOrde red By: Khushboo Dudley on 02-20-2025 TSH Qn 1.440 uIU/mL 0.300-4.20 0 [facility] Thyroid Stim Hormone (TSH)on 02-20-2025 TSH 1.440 uIU/mL Normal 0.300-4.20 0 [facility] Comment on above: Performed By: #### L 100.0100, L500.4050, L501.9520, L503.7505, L500.4100 ####[facility] [address] [place], [address] Total proteinOrdered By: Chandra Dudley on 02-20-2025 Protein [Mass/Vol] 7.2 g/dL 5.9-8.4 [facility] Triglycerides measurementOrd ered By: Khushboo Dudley on 02-20-2025 Triglyceride [Mass/Vol] 44 mg/dL <199 [facility] Comment on above: The drugs N-Acetylcy steine and Metamizole may falsely depress this assay. Normal range: <150 mg/dLBorderline High: 150-199 mg/dLHigh: 200-499 mg/dLVery High: >500 mg/dL White blood cell (WBC) count Ordered By: Khushboo Dudley on 02-20-2025 WBC (Bld) [#/Vol] 5.9 10*3/uL 4.4-11.0 [facility] Absolute lymphocyte countOrd ered By: Khushboo Dudley on 06-15-2023 Lymphocytes Auto (Unsp spec) [#/Vol] 1.30 10*3/uL 0.83-4.51 [facility] Basophil percentageOrdered B y: Khushboo Dudley on 06-15-2023 Basophils/100 WBC (Bld) 0.6 % 0-1 [facility] Bilirubin [Mass/Vol] 0.30 mg/dL 0.20-1.00 [facility] Comment on above: For patients on eltr ombopag therapy, use of Dimension [place] TBIL is not recommended. Chloride [Moles/Vol] 109 mmol/L 98-107 [facility] Cholesterol [Mass/Vol] 160 mg/dL <200 [facility] Comment on above: <200 mg/dL Desirable 200-240 mg/dL Borderline >240 mg/dL High Risk Eosinophils/100 WBC (Bld) 2.3 % 0-5 [facility] Glucose [Mass/Vol] 87 mg/dL 74-106 [facility] Neutrophils (Bld) [#/Vol] 3.2 10*3/uL 2.0-7.7 [facility] Neutrophils/100 WBC (Bld) 61.8 % 47-70 [facility] Potassium [Moles/Vol] 4.3 mmol/L 3.5-5.1 [facility] Protein [Mass/Vol] 7.2 g/dL 6.4-8.2 [facility] Sodium [Moles/Vol] 140 mmol/L 136-145 [facility] Triglyceride [Mass/Vol] 49 mg/dL <199 [facility] Comment on above: The drugs N-Acetylcy steine and Metamizole may falsely depress this assay.Serum Triglycerides Reference Interval Normal <150 mg/dL Borderline high 150 - 199 mg/dL High 200 - 499 mg/dL Very High > or = 500 mg/dL WBC (Bld) [#/Vol] 5.2 10*3/uL 4.4-11.0 [facility] Blood erythrocytes count (nu mber/volume)Ordered By: Khushboo Dudley on 06-15-2023 RBC (Bld) [#/Vol] 3.89 10*6/uL 4.2-5.4 [facility] Blood hemoglobin measurement (mass/volume)Ordered By: Khushboo Dudley on 06-15-2023 Hemoglobin (Bld) [Mass/Vol] 12.4 g/dL 12.0-15.0 [facility] Blood lymphocytes/100 leukoc ytesOrdered By: Khushboo Dudley on 06-15-2023 Lymphocytes/100 WBC (Bld) 24.8 % 19-41 [facility] Blood monocytes/100 leukocyt esOrdered By: Khushboo Dudley on 06-15-2023 Monocytes/100 WBC (Bld) 10.3 % 0-10 [facility] Blood platelet mean volumeOr dered By: Khushboo Dudley on 06-15-2023 Platelet mean volume (Bld) [Entitic vol] 10.5 fL 6.2-12.0 [facility] Determination of erythrocyte mean corpuscular volume (MCV)Ordered By: Khushboo Dudley on 06-15-2023 MCV (RBC) [Entitic vol] 99.5 fL 81-99 [facility] Hematocrit Auto (Bld) [Volum e fraction]Ordered By: Khushboo Dudley on 06-15-2023 Hematocrit (Bld) [Volume fraction] 38.7 % 37-47 [facility] Laboratory - Chemistry and C hemistry - challengeOrdered By: Khushboo Dudley on 06-15-2023 ALP [Catalytic activity/Vol] 75 U/L 45-117 [facility] ALT [Catalytic activity/Vol] 23 U/L 13-56 [facility] CO2 [Moles/Vol] 25.0 mmol/L 21.0-32.0 [facility] Globulin (S) [Mass/Vol] 3.9 g/dL 2.2-4.2 [facility] Urea nitrogen/Creatinine [Mass ratio] 17.8 mg/mg 10-20 [facility] Laboratory - Hematology and Cell countsOrdered By: Khushboo Dudley on 06-15-2023 Erythrocyte distribution width (RBC) [Entitic vol] 47.9 fL 35.1-43.9 [facility] Erythrocyte distribution width (RBC) [Ratio] 13.1 % 11.6-14.6 [facility] Immature granulocytes/100 WBC (Bld) 0.200 % 0.0-0.9 [facility] Comment on above: IG% - Immature Granu locytes (promyelocytes, myelocytes and metamyelocytes) > 1% indicates that a LEFT SHIFT is Present. MCH (RBC) [Entitic mass] 31.9 pg 27.0-32.0 [facility] Nucleated RBC/100 WBC (Bld) [Ratio] 0 % 0-5 [facility] MCHC Auto (RBC) [Mass/Vol]Or dered By: Khushboo Dudley on 06-15-2023 MCHC (RBC) [Mass/Vol] 32.0 g/dL 32-36 [facility] No Panel InformationOrdered By: Khushboo Dudley on 06-15-2023 Estimated GFR (MDRD) Amer 86 mL/min >60 [facility] Comment on above: GFR Calc Estimated GFR (MDRD) Non-Af Amer 71 mL/min >60 [facility] Comment on above: Non- GFR Calc Thyroid Stimulating Hormone (TSH) 0.40 uIU/mL 0.358-3.74 [facility] Platelets bldOrdered By: Chandra Dudley on 06-15-2023 Platelets (Bld) [#/Vol] 129 10*3/uL 150-450 [facility] Serum or plasma albumin hema urement (mass/volume)Ordered By: Khushboo Dudley on 06-15-2023 Albumin [Mass/Vol] 3.3 g/dL 3.2-5.0 [facility] Serum or plasma albumin/glob ulin mass ratioOrdered By: Khushboo Dudley on 06-15-2023 Albumin/Globulin [Mass ratio] 0.8 {ratio} 0.9-2.4 [facility] Serum or plasma calcium hema urement (mass/volume)Ordered By: Khushboo Dudley on 06-15-2023 Calcium [Mass/Vol] 8.6 mg/dL 8.5-10.1 [facility] Serum or plasma cholesterol in HDL measurement (mass/volume)Ordered By: Khushboo Dudley on 06-15-2023 Cholesterol in HDL [Mass/Vol] 54 mg/dL >40 [facility] Comment on above: The drugs N-Acetylcy steine and Metamizole may falsely depress this assay. Reference Range HDL <40 mg/dL Low HDL Cholesterol HDL >or= 60 mg/dL High HDL Cholesterol Serum or plasma cholesterol in VLDL measurement (mass/volume)Ordered By: Khushboo Dudley on 06-15-2023 Cholesterol in VLDL [Mass/Vol] 10 mg/dL 5-40 [facility] Serum or plasma creatinine m easurement (mass/volume)Ordered By: Khushboo Dudley on 06-15-2023 Creatinine [Mass/Vol] 0.84 mg/dL 0.55-1.02 [facility] Comment on above: The validity of the calculated GFR & GFRAA in patients over 70 years has not been determined. Clinical correlation is essential. Serum or plasma low density lipoprotein (LDL) cholesterol measurement (mass/volume)Ordered By: Khushboo Dudley on 06-15-2023 Cholesterol in LDL [Mass/Vol] 96 mg/dL 0-130 [facility] Serum or plasma urea nitroge n measurement (mass/volume)Ordered By: Khushboo Miholley on 06-15-2023 Urea nitrogen [Mass/Vol] 15 mg/dL 7-18 [facility] Thin prep Papanicolaou smear with manual screeningOrdered By: Khushboo Octavia on 06-15-2023 Thin prep Papanicolaou smear with manual screening 18 U/L 15-37 [facility] Thin prep Papanicolaou smear with manual screening 6 5-15 [facility] Absolute lymphocyte counton 06-23-2022 Lymphocytes Auto (Unsp spec) [#/Vol] 1.50 10*3/uL 0.83-4.51 [facility] Work Phone: Basophil percentageon 2021 Basophils/100 WBC (Bld) 0.6 % 0-1 [facility] Work Phone: Bilirubin [Mass/Vol] 0.50 mg/dL 0.20-1.00 [facility] Work Phone: Comment on above: For patients on eltr ombopag therapy, use of Dimension [place] TBIL is not recommended. Chloride [Moles/Vol] 110 mmol/L 98-107 [facility] Work Phone: [phone] Cholesterol [Mass/Vol] 185 mg/dL <200 [facility] Work Phone: [phone] Comment on above: <200 mg/dL Desirable 200-240 mg/dL Borderline >240 mg/dL High Risk Eosinophils/100 WBC (Bld) 1.9 % 0-5 [facility] Work Phone: Glucose [Mass/Vol] 93 mg/dL 74-106 [facility] Work Phone: Neutrophils (Bld) [#/Vol] 3.2 10*3/uL 2.0-7.7 [facility] Work Phone: [phone] Neutrophils/100 WBC (Bld) 60.9 % 47-70 [facility] Work Phone: Potassium [Moles/Vol] 3.9 mmol/L 3.5-5.1 [facility] Work Phone: [phone] Protein [Mass/Vol] 7.5 g/dL 6.4-8.2 [facility] Work Phone: [phone] Sodium [Moles/Vol] 143 mmol/L 136-145 [facility] Work Phone: [phone] Triglyceride [Mass/Vol] 50 mg/dL <199 [facility] Work Phone: [phone] Comment on above: The drugs N-Acetylcy steine and Metamizole may falsely depress this assay.Serum Triglycerides Reference Interval Normal <150 mg/dL Borderline high 150 - 199 mg/dL High 200 - 499 mg/dL Very High > or = 500 mg/dL WBC (Bld) [#/Vol] 5.3 10*3/uL 4.4-11.0 [facility] Work Phone: [phone] Blood erythrocytes count (nu mber/volume)on 06-23-2022 RBC (Bld) [#/Vol] 3.99 10*6/uL 4.2-5.4 [facility] Work Phone: Blood hemoglobin measurement (mass/volume)on 06-23-2022 Hemoglobin (Bld) [Mass/Vol] 13.1 g/dL 12.0-15.0 [facility] Work Phone: Blood lymphocytes/100 leukoc yteson 06-23-2022 Lymphocytes/100 WBC (Bld) 28.3 % 19-41 [facility] Work Phone: Blood monocytes/100 leukocyt eson 06-23-2022 Monocytes/100 WBC (Bld) 8.1 % 0-10 [facility] Work Phone: Blood platelet mean volumeon 06-23-2022 Platelet mean volume (Bld) [Entitic vol] 10.3 fL 6.2-12.0 [facility] Work Phone: Determination of erythrocyte mean corpuscular volume (MCV)on 06-23-2022 MCV (RBC) [Entitic vol] 98.2 fL 81-99 [facility] Work Phone: Hematocrit Auto (Bld) [Volum e fraction]on 06-23-2022 Hematocrit (Bld) [Volume fraction] 39.2 % 37-47 [facility] Work Phone: [phone] Laboratory - Chemistry and C hemistry - challengeon 06-23-2022 ALP [Catalytic activity/Vol] 75 U/L 45-117 [facility] Work Phone: ALT [Catalytic activity/Vol] 21 U/L 13-56 [facility] Work Phone: CO2 [Moles/Vol] 26.0 mmol/L 21.0-32.0 [facility] Work Phone: Globulin (S) [Mass/Vol] 4.1 g/dL 2.2-4.2 [facility] Work Phone: Urea nitrogen/Creatinine [Mass ratio] 13.8 mg/mg 10-20 [facility] Work Phone: [phone] Laboratory - Hematology and Cell countson 06-23-2022 Erythrocyte distribution width (RBC) [Entitic vol] 47.4 fL 35.1-43.9 [facility] Work Phone: Erythrocyte distribution width (RBC) [Ratio] 13.1 % 11.6-14.6 [facility] Work Phone: Immature granulocytes/100 WBC (Bld) 0.200 % 0.0-0.9 [facility] Work Phone: Comment on above: IG% - Immature Granu locytes (promyelocytes, myelocytes and metamyelocytes) > 1% indicates that a LEFT SHIFT is Present. MCH (RBC) [Entitic mass] 32.8 pg 27.0-32.0 [facility] Work Phone: Nucleated RBC/100 WBC (Bld) [Ratio] 0 % 0-5 [facility] Work Phone: MCHC Auto (RBC) [Mass/Vol]on 06-23-2022 MCHC (RBC) [Mass/Vol] 33.4 g/dL 32-36 [facility] Work Phone: No Panel Informationon 06-23 Estimated GFR (MDRD) Amer 92 mL/min >60 [facility] Work Phone: Comment on above: GFR Calc Estimated GFR (MDRD) Non-Af Amer 76 mL/min >60 [facility] Work Phone: Comment on above: Non- GFR Calc Thyroid Stimulating Hormone (TSH) 1.33 uIU/mL 0.358-3.74 [facility] Work Phone: Platelets bldon 06-23-2022 Platelets (Bld) [#/Vol] 140 10*3/uL 150-450 [facility] Work Phone: Serum or plasma albumin hema urement (mass/volume)on 06-23-2022 Albumin [Mass/Vol] 3.4 g/dL 3.2-5.0 [facility] Work Phone: Serum or plasma albumin/glob ulin mass ratioon 06-23-2022 Albumin/Globulin [Mass ratio] 0.8 {ratio} 0.9-2.4 [facility] Work Phone: Serum or plasma calcium hema urement (mass/volume)on 06-23-2022 Calcium [Mass/Vol] 8.7 mg/dL 8.5-10.1 [facility] Work Phone: Serum or plasma cholesterol in HDL measurement (mass/volume)on 06-23-2022 Cholesterol in HDL [Mass/Vol] 61 mg/dL >40 [facility] Work Phone: Comment on above: The drugs N-Acetylcy steine and Metamizole may falsely depress this assay. Reference Range HDL <40 mg/dL Low HDL Cholesterol HDL >or= 60 mg/dL High HDL Cholesterol Serum or plasma cholesterol in VLDL measurement (mass/volume)on 06-23-2022 Cholesterol in VLDL [Mass/Vol] 10 mg/dL 5-40 [facility] Work Phone: Serum or plasma creatinine m easurement (mass/volume)on 06-23-2022 Creatinine [Mass/Vol] 0.80 mg/dL 0.55-1.02 [facility] Work Phone: Comment on above: The validity of the calculated GFR & GFRAA in patients over 70 years has not been determined. Clinical correlation is essential. Serum or plasma low density lipoprotein (LDL) cholesterol measurement (mass/volume)on 06-23-2022 Cholesterol in LDL [Mass/Vol] 114 mg/dL 0-130 [facility] Work Phone: Serum or plasma urea nitroge n measurement (mass/volume)on 06-23-2022 Urea nitrogen [Mass/Vol] 11 mg/dL 7-18 [facility] Work Phone: Thin prep Papanicolaou smear with manual screeningon 06-23-2022 Thin prep Papanicolaou smear with manual screening 13 U/L 15-37 [facility] Work Phone: Thin prep Papanicolaou smear with manual screening 7 5-15 [facility] Work Phone: Vital Signs Date Time Vital Sign Value Performing Clinician Faci lity 03-31-2025 12:50-0400 Body temperature 97.6 [degF] Dr. Khushboo Dudley MD Work Phone: [phone] [place] [address] 03-31-2025 12:50-0400 Diastolic blood pressure 72 mm[Hg] Dr. Khushboo Dudley MD Work Phone: [phone] [place] [address] 03-31-2025 12:50-0400 Heart rate 55 /min Dr. Khushboo Dudley MD Work Phone: [phone] [place] [address] 03-31-2025 12:50-0400 Respiratory rate 16 /min Dr. Khushboo Dudley MD Work Phone: [phone] [place] [address] 03-31-2025 12:50-0400 SaO2% (BldA) [Mass fraction] 95 % Dr. Khushboo Dudley MD Work Phone: [phone] [place] [address] 03-31-2025 12:50-0400 Systolic blood pressure 122 mm[Hg] Dr. Khushboo Dudley MD Work Phone: [phone] [place] [address] 03-29-2025 15:54-0400 Body height 165.[address] Khushboo Dudley MD Work Phone: [phone] [place] [address] 03-29-2025 15:54-0400 Body weight 101.[address] Khushboo Dudley MD Work Phone: [phone] [place] [address] 03-28-2025 18:38-0400 Body mass index (BMI) [Ratio] 37 kg/m2 Dr. Khushboo Dudley MD Work Phone: [phone] [place] [address] 03-28-2025 17:52-0400 Body temperature 98.4 [degF] Dr. Khushboo Dudley MD Work Phone: [phone] [place] [address] 03-28-2025 17:52-0400 Diastolic blood pressure 71 mm[Hg] Dr. Khushboo Dudley MD Work Phone: [phone] [place] [address] 03-28-2025 17:52-0400 Heart rate 79 /min Dr. Khushboo Dudley MD Work Phone: [facility] 03-28-2025 17:52-0400 Respiratory rate 19 /min Dr. Khsuhboo Dudley MD Work Phone: [facility] 03-28-2025 17:52-0400 SaO2% (BldA) [Mass fraction] 100 % Dr. Khushboo Dudley MD Work Phone: [facility] 03-28-2025 17:52-0400 Systolic blood pressure 129 mm[Hg] Dr. Khushboo Dudley MD Work Phone: [facility] 03-28-2025 14:23-0400 Body height 165.[address] Khushboo Dudley MD Work Phone: [facility] 03-28-2025 14:23-0400 Body mass index (BMI) [Ratio] 37.2 kg/m2 Dr. Khushboo Dudley MD Work Phone: [facility] 03-28-2025 14:23-0400 Body weight 101.[address] Khushboo Dudley MD Work Phone: [facility] 09-01-2022 09:05-0500 Body temperature 98.6 [degF] Dr. Khushboo Dudley Work Phone: [facility] Work Phone: 09-01-2022 09:05-0500 Diastolic blood pressure 73 mm[Hg] Dr. Khushboo Dudley Work Phone: [facility] Work Phone: 09-01-2022 09:05-0500 Heart rate 64 /min Dr. Khushboo Dudley Work Phone: [facility] Work Phone: 09-01-2022 09:05-0500 Respiratory rate 18 /min Dr. Khushboo Dudley Work Phone: [facility] Work Phone: 09-01-2022 09:05-0500 SaO2% (BldA) [Mass fraction] 99 % Dr. Khushboo Dudley Work Phone: [facility] Work Phone: 09-01-2022 09:05-0500 Systolic blood pressure 129 mm[Hg] Dr. Khushboo Dudley Work Phone: [facility] Work Phone: 09-01-2022 07:38-0500 Body height 165.[address] Khushboo Dudley Work Phone: [facility] Work Phone: 09-01-2022 07:38-0500 Body mass index (BMI) [Ratio] 36.6 kg/m2 Dr. Khushboo Dudley Work Phone: [facility] Work Phone: 09-01-2022 07:38-0500 Body weight [address] Khushboo Dudley Work Phone: [facility] Work Phone: 06-28-2022 09:23-0400 Body height 165.[address] Khushboo Dudley Work Phone: [facility] Work Phone: 06-28-2022 09:23-0400 Body mass index (BMI) [Ratio] 36.9 kg/m2 Dr. Khushboo Dudley Work Phone: [facility] Work Phone: 06-28-2022 09:23-0400 Body weight 100.[address] Khushboo Dudley Work Phone: [facility] Work Phone: Encounters Encounter Date Encounter Type Care Provider Facility Start: 06-05-2025 [facility] Khushboo Dudley Facility: [facility] Start: 03-31-2025 Non-patient / Non-visit Dr. Eleazar Gonzalez MD -[facility] Work Phone: Start: 03-31-2025 Non-patient / Non-visit Dr. Isaac GARCIA -[facility] Start: 03-30-2025 Non-patient / Non-visit Dr. Jimi Flores MD -[facility] Start: 03-30-2025 Non-patient / Non-visit Dr. Johana Neff DO -[facility] Work Phone: Start: 03-29-2025 Non-patient / Non-visit Dr. Loren De Souza MD -[facility] Work Phone: Start: 03-29-2025 ambulatory [facility] Facility: [facility] Start: 03-29-2025 Non-patient / Non-visit Dr. Jimi Flores MD -[facility] Start: 03-28-2025 ambulatory [facility] Facility: [facility] Start: 03-28-2025 End: 03-31-2025 Evaluation and management of inpatient Dr. Loren De Souza MD -Pro[facility] Care Unit Work Phone: Start: 03-27-2025 ambulatory [facility] Facility: [facility] Start: 03-27-2025 Non-patient / Non-visit Dr. Robbi alex MD -[facility] Start: 03-27-2025 End: 03-27-[address] Khushboo Dudley MD Work Phone: [facility] Work Phone: Start: 03-27-2025 End: 03-27-[address] Khushboo Dudley MD -Cardiovascular Services Work Phone: Start: 03-27-2025 End: 03-27-2025 ambulatory [facility] Facility:[facility] Start: 03-18-2025 End: 03-18-[address] Khushboo Dudley MD Work Phone: [facility] Work Phone: Start: 03-18-2025 End: 03-18-[address] Khushboo Dudley MD -[facility] Work Phone: Start: 03-18-2025 End: 03-18-2025 ambulatory Khushboo Dudley Facility:[facility] Start: 03-07-2025 End: 03-07-[address] Khushboo Dudley MD Work Phone: [facility] Work Phone: Start: 03-07-2025 End: 03-07-[address] Khushboo Dudley MD -Cardiovascular Services Work Phone: Start: 03-07-2025 End: 03-07-2025 ambulatory Khushboo Dudley Facility:[facility] Start: 02-20-2025 End: 02-20-[address] Khushboo Dudley MD Work Phone: [facility] Work Phone: Start: 02-20-2025 End: 02-20-[address] [facility] Start: 02-20-2025 End: 02-20-2025 ambulatory Khushboo Dudley Facility:[facility] Start: 12-08-2023 End: 12-08-2023 ambulatory [facility] Work Phone: Start: 12-08-2023 End: 12-08-2023 Patient encounter procedure [facility]-Outpatient Breast Imaging Work Phone: Start: 06-15-2023 End: 06-15-2023 ambulatory [facility] Work Phone: Start: 06-15-2023 End: 06-15-2023 Patient encounter procedure [facility] Start: 09-01-2022 Non-patient / Non-visit Dr. Hoang Dudley Work Phone: [facility] Start: 09-01-2022 End: 09-01-2022 Admission to same day surgery center Dr. Khushboo Dudley Work Phone: [facility]-Endoscopy Start: 09-01-2022 End: 09-01-[address] Khushboo Dudley Work Phone: [facility] Work Phone: Start: 07-04-2022 End: 07-04-[address] Khushboo Dudley Work Phone: [facility] Work Phone: Start: 07-04-2022 End: 07-04-[address] Khushboo Dudley Work Phone: [facility]-Outpatient Breast Imaging Start: 06-28-2022 Non-patient / Non-visit Dr. Hoang Dudley Work Phone: [facility] Start: 06-23-2022 End: 06-23-2022 ambulatory [facility] Work Phone: Start: 06-23-2022 End: 06-23-2022 Patient encounter procedure [facility] Procedures Date Procedure Procedure Detail Performing [...] Author Start: 03-31-2025 Patient discharge [facility] Start: 03-31-2025 Notification of physician [facility] Start: 03-31-2025 Patient education [facility] Start: 03-31-2025 Provision of activity privileges [facility] Start: 03-31-2025 Pulse taking [facility] Start: 03-31-2025 Taking patient vital signs [facility] Start: 03-31-2025 Wound care [facility] Start: 03-31-2025 [facility] Start: 03-31-2025 Catheterization of left heart [facility] Start: 03-31-2025 Catheterization of vein [facility] Start: 03-31-2025 Notification of physician [facility] Start: 03-31-2025 Preoperative care [facility] Start: 03-31-2025 [facility] Start: 03-29-2025 [facility] Start: 03-28-2025 Following clinical p athway protocol [facility] Start: 03-28-2025 Assessment of risk o f venous thromboembolism [facility] Start: 03-28-2025 Insertion of cathete r into peripheral vein [facility] Start: 03-28-2025 Measuring intake and output [facility] Start: 03-28-2025 Providing care accor ding to standard [facility] Start: 03-28-2025 Provision of activity privileges [facility] Start: 03-28-2025 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 [facility] Start: 03-28-2025 Referral to occupati onal therapist [facility] Start: 03-28-2025 Referral to service [facility] Start: 03-28-2025 [facility] Start: 03-28-2025 Admission procedure [facility] Start: 03-28-2025 Hospital admission, emergency, from emergency room, medical nature [facility] Start: 03-28-2025 [facility] Start: 03-28-2025 Patient referral to dietitian [facility] Start: 09-01-2022 Patient discharge [facility] Work Phone: Colonoscopy [facility] Work Phone: Hemoglobin A1c/Hemog lobin.total in Blood [facility] Patient referral [facility] Work Phone: Troponin T.cardiac [ Mass/volume] in Serum or Plasma by High sensitivity method [facility] Immunizations Immunization Date Immunization Notes Care Provider Fa ro 07-27-2023 Covid (Spikevax) Dr. Khushboo Dudley MD Work Phone: [facility] 09-30-2021 Covid (Moderna) Dr. Khushboo figueredo MD Work Phone: [facility] 02-04-2021 Covid (Moderna) Dr. Khushboo figueredo MD Work Phone: [facility] 01-07-2021 Covid (Moderna) Dr. Khushboo figueredo MD Work Phone: [facility] 11-23-2015 pneumococcal polysaccharide vaccine, [address] Khushboo Dudley MD Work Phone: [facility] Payers Date Payer Category Payer Medicare [id number] 364 [id number] 2025 Self-pay [id number] 2025 Unknown [id number] Unknown [id number] 2.16.8 [id number] Unknown [id number] 2.16.8 [id number] Unknown [id number] 2.16.8 [id number] Unknown [id number] 2.16.8 [id number] Unknown [id number] 2.16.8 [id number] Unknown [id number] 2.16.8 [id number] Unknown [id number] 2.16.8 [id number] Unknown [id number] 2.16.8 [id number] Unknown [id number] 2.16.8 [id number] Unknown [id number] 2.16.8 [id number] Unknown [id number] 2.16.8 [id number] Unknown [id number] 2.16.8 [id number] Unknown [id number] 2.16.8 [id number] Unknown [id number] 2.16.8 [id number] Social History Date Type Detail Facility Start: 08-02-2021 End: 08-29-2022 Tobacco smoking status IDIS Unknown if ever smoked [facility] Start: 03-14-2018 Cigarettes [facility] Start: 1955 Sex Assigned At Female [facility] Start: 08-29-2022 End: 03-28-2025 Tobacco smoking status IDIS Ex-smoker (finding) [facility] Medical Equipment Procedure Code Equipment Code [...] Assessment Result Facility 03-31-2025 Functional status [facility] Work Phone: Mental Status Date Assessment Result Facility 03-31-2025 Cognitive function Voice/Name [facility] Work Phone: 03-28-2025 Cognitive function Voice/Name [facility] Work Phone: 09-01-2022 Cognitive function Level Of Consciousness Awake [facility] Work Phone: Clinical Notes 03-19-2025 to 03-31-2025 Note Date & Type Note Facility 03-31-2025 Discharge summary Note Date/Time March 31, 2025 10:51am [facility] Medical Records Department [address] [facility] [place] [address] Discharge Summary 03/31/25 1039 MR#: [id number] Acct: [id number] Name: GUMARO CARRASQUILLO Rep #:[id number] : 1955 70 From: Eleazar Ramirez PCP: Dr. Khushboo Dudley MD Status:ADM IN Location: [place] [address] Providers Date of Admission: 03/28/25 Date of [...] On metoprolol. 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 * 2D echo showed normal left ventricular [...] Patient has dyslipidemia and prescription given for ifmzyxhdvxqn18 mg daily and baby aspirin. * #Hypertension: [...] % (Auto) 64.4, Lymph % (Auto) 22.7, [place] % (Auto) 10.2 H, Eos % (Auto) [...] Self Care Charges/Coding Visit Charges Inpatient E&M: 46340 Disch Hosp >30min 03/31/25 1051 <Electronically signed by Eleazar Gonzalez MD> Cosigner Signature (if applicable): CC: Dr. Khushboo Dudley MD; Dr. Eleazar Gonzalez MD~ Signed [facility] Work Phone: 1(807) 116-340706-16-2025 Discharge summary Author Eleazar Gonzalez [facility] Note Date/Time March 31, 2025 10:3 9am [facility] Medical Records Department [address] [place] [address] Instructions for Home/Discharge Instructions 03/31/25 1034 MR#: [id number] Acct: [id number] Name: GUMARO CARRASQUILLO Rep #:[id number] : 1955 70 From: Eleazar Ramirez PCP: [...] Primary Care Provider: Khushboo Dudley Consulting Providers: Sotney Veronica; Loren De Souza Discharge Orders/Prescriptions Prescriptions: [...] Dr. Loren De Souza MD ~ Signed [facility] Work Phone: 1(649) 973-571106-16-2025 Discharge summary [facility] Medical Records Department [address] [place] [address] Discharge Summary 03/31/25 1039 MR#: [id number] Acct: [id number] Name: GUMARO CARRASQUILLO Rep #:[id number] : 1955 70 From: Eleazar Ramirez PCP: Dr. Khushboo Dudley MD Status:ADM IN Location: [place] [id number]- [id number] Providers Date of Admission: 03/28/25 Date [...] On metoprolol. 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 * 2D echo showed normal left ventricular [...] Patient has dyslipidemia and prescription given for fpyphvtyfzus13 mg daily and baby aspirin. * #Hypertension: [...] Neut% (Auto) 64.4, Lymph % (Auto) 22.7, [place] % (Auto) 10.2 H, Eos % (Auto) [...] Self Care Charges/Coding Visit Charges Inpatient E&M: 00859 Disch Hosp >30min 03/31/25 1051 Cosigner Signature (if applicable): CC: Dr. Khushboo Dudley MD; Dr. Eleazar Gonzalez MD~ Signed [facility]06-16-2025 Discharge summary [facility] Medical Records Department [address] [place] [address] Instructions for Home/Discharge Instructions 03/31/25 1034 MR#: [id number] Acct: [id number] Name: GUMARO CARRASQUILLO Rep #:[id number] : 1955 70 From: Eleazar Ramirez PCP: [...] Dr. Loren De Souza MD ~ Signed [facility]06-16-2025 [facility] Medical Records Department [address] [place] [address] Discharge Summary 03/31/25 1039 MR#: [id number] Acct: [id number] Name: GUMARO CARRASQUILLO Rep #: [id number] : 1955 70 From: Eleazar Gonzalez MD PCP: Dr. Khushboo Dudley MD Status:ADM [facility] Prov[facility] Date of Admission: 03/28/25 Date of [...] On metoprolol. 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 * 2D echo showed normal left ventricular [...] crepitation/rhonchi Cardiovascular: Sinus 56/min (more content not included)...[facility]06-16-2025 Progress note Author Stoney Veronica [facility] Note Date/Time March 31, 2025 8:30 am [facility] Medical Records Department [address] [place] [address] Progress Note - Cardiology 03/31/25 0829 MR#: [id number] Acct: [id number] Name: GUMARO CARRASQUILLO Rep #:[id number] : 1955 70 From: Stoney Veronica MD PCP: Dr. Khushboo Dudley MD Status:ADM IN Location: [place] [address] Subjective Subjective Patient seen and evaluated. Underwent [...] % (Auto) 64.4, Lymph % (Auto) 22.7, [place] % (Auto) 10.2 H, Eos % (Auto) [...] % (Auto) 64.4, Lymph % (Auto) 22.7, [place] % (Auto) 10.2 H, Eos % (Auto) [...] Cosigner Signature (if applicable): CC: ~ Signed [facility] Work Phone: 1(606) 273-476306-16-2025 Progress note [facility] Medical Records Department [address] [place] [address] Progress Note - Cardiology 03/31/25 0829 MR#: [id number] Acct: [id number] Name: GUMARO CARRASQUILLO Rep #:[id number] : 1955 70 From: Stoney Veronica MD PCP: Dr. Khushboo Dudley MD Status:ADM IN Location: [place] [address] Subjective Subjective Patient seen and evaluated. Underwent [...] Neut% (Auto) 64.4, Lymph % (Auto) 22.7, [place] % (Auto) 10.2 H, Eos % (Auto) [...] % (Auto) 64.4, Lymph % (Auto) 22.7, [place] % (Auto) 10.2 H, Eos % (Auto) 1.9, Baso %(Auto) 0.5, Absolute Neuts (auto) 4.0, Nucleated RBC % 0, Yiszyr880, Potassium 3.8, Chloride 108, Carbon Dioxide 21.9, [...] Cosigner Signature (if applicable): CC: ~ Signed [facility]06-15-2025 Progress note Author Loren De Souza [facility] Note Date/Time March 30, 2025 3:37 pm [facility] Medical Records Department [address] [place] [address] Progress Note 03/30/25 1203 MR#: [id number] Acct: [id number] Name: GUMARO CARRASQUILLO Rep #:[id number] : 1955 70 From: Loren De Souza MD PCP: Dr. Khushboo Dudley MD Status:ADM IN Location: [place] [address] Subjective Subjective Patient seen and examined. She [...] % (Auto) 61.0, Lymph % (Auto) 25.9, [place] % (Auto) 10.3 H, Eos % (Auto) [...] prophylaxis: lovenox Charges/Coding Visit Charges Inpatient E&M: 98442 Subs Hosp L2 03/30/25 1535 <Electronically signed by Loren De Souza MD> Loren De Souza MD Cosigner Signature (if applicable): CC: ~ Signed [facility] Work Phone: 1(520) 791-842806-15-2025 Progress note Author Jimi Flores [facility] Note Date/Time March 30, 2025 2:12 pm [facility] Medical Records Department [address] [place] [address] Progress Note - Cardiology 03/30/25 1056 MR#: [id number] Acct: [id number] Name: GUMARO CARRASQUILLO Rep #:[id number] : 1955 70 From: Jimi Flores MD PCP: Dr. Khushboo Dudley MD Status:ADM IN Location: [place] [address] Subjective Subjective Had an episode of Chest [...] % (Auto) 61.0, Lymph % (Auto) 25.9, [place] % (Auto) 10.3 H, Eos % (Auto) [...] % (Auto) 61.0, Lymph % (Auto) 25.9, [place] % (Auto) 10.3 H, Eos % (Auto) [...] thrombocytopenia: stable Charges/Coding Visit Charges Inpatient E&M: 87968 Subs Hosp L3 03/30/25 1412 <Electronically signed by Jimi Flores MD> Cosigner Signature (if applicable): CC: ~ Signed [facility] Work Phone: 1(775) 530-185206-15-2025 Progress note [facility] Medical Records Department [address] [place] [address] Progress Note 03/30/25 1203 MR#: [id number] Acct: [id number] Name: GUMARO CARRASQUILLO Rep #:[id number] : 1955 70 From: Loren De Souza MD PCP: Dr. Khushboo Dudley MD Status:ADM IN Location: [place] [address] Subjective Subjective Patient seen and examined. She [...] % (Auto) 61.0, Lymph % (Auto) 25.9, [place] % (Auto) 10.3 H, Eos % (Auto) [...] prophylaxis: lovenox Charges/Coding Visit Charges Inpatient E&M: 09426 Subs Hosp L2 03/30/25 0690 Loren De Souza MD Cosigner Signature (if applicable): CC: ~ Signed [facility]06-15-2025 Progress note [facility] Medical Records Department [address] [place] [address] Progress Note - Cardiology 03/30/25 1056 MR#: [id number] Acct: [id number] Name: GUMARO CARRASQUILLO Rep #:[id number] : 1955 70 From: Jimi Flores MD PCP: Dr. Khushboo Dudley MD Status:ADM IN Location: [place] [address] Subjective Subjective Had an episode of Chest [...] % (Auto) 61.0, Lymph % (Auto) 25.9, [place] % (Auto) 10.3 H, Eos % (Auto) [...] 95.4, MCH 32.7 H, MCHC 34.3, Plt Jhuqu925 L, MPV 10.1, Immature Gran % (Auto) 0.500, Neut % (Auto) 61.0, Lymph % (Auto) 25.9, [place] % (Auto) 10.3 H, Eos % (Auto) [...] thrombocytopenia: stable Charges/Coding Visit Charges Inpatient E&M: 53953 Subs Hosp L3 03/30/25 1412 Cosigner Signature (if applicable): CC: ~ Signed [facility]06-15-2025 Progress note Author Johana Neff [facility] Note Date/Time March 30, 2025 6:22 am [facility] Medical Records Department [address] [place] [address] Progress Note - Hospitalist 03/30/25620 MR#: [id number] Acct: [id number] Name: GUMARO CARRASQUILLO Rep #:[id number] : 1955 70 From: Johana Neff DO PCP: Dr. Khushboo Dudley MD Status:ADM IN Location: [place] [address] Hospitalist Note Called as patient was having [...] Cosigner Signature (if applicable): CC: ~ Signed [facility] Work Phone: 1(252) 528-163406-15-2025 Progress note [facility] Medical Records Department [address] [place] [address] Progress Note - Hospitalist 03/30/25 0621 MR#: [id number] Acct: [id number] Name: GUMARO CARRASQUILLO Rep #:[id number] : 1955 70 From: Johana Neff DO PCP: Dr. Khushboo Dudley MD Status:ADM IN Location: [place] [address] Hospitalist Note Called as patient was having [...] Cosigner Signature (if applicable): CC: ~ Signed [facility]06-14-2025 Consult note Author Jimi Flores [facility] Note Date/Time March 29, 2025 3:48 pm [facility] Medical Records Department [address] [place] [address] Consultation - Cardiology 03/29/25 1017 MR#: [id number] Acct: [id number] Name: GUMARO CARRASQUILLO Rep #:[id number] : 1955 70 From: Jimi Flores MD PCP: Dr. Khushboo Dudley MD Status:ADM IN Location: [place] [address] Assessment & Plan Assessment/Plan (1) CAD (coronary [...] troponins have been within normal limits. [facility] Medical History (Updated 03/28/25 @ 23:10 by [...] Reaction Status Date / Time cefaclor (From [facility]) Allergy Hives Verified 03/28/25 14:25 latex Allergy [...] 1.0, APTT 26.6, Sodium 140, Potassium 3.7, Ugfpfbtk602, Carbon Dioxide 22.0, Anion Gap 11, BUN [...] 72.2 H, Lymph % (Auto) 16.3 L, [place] % (Auto) 9.9, Eos % (Auto) 0.6, [...] (Auto) 69.8, Lymph % (Auto) 18.9 L, [place] % (Auto) 9.4, Eos % (Auto) 1.1, [...] 1.0, APTT 26.6, Sodium 140, Potassium 3.7, Wylfmwgt212, Carbon Dioxide 22.0, Anion Gap 11, BUN [...] (Auto) 72.2H, Lymph % (Auto) 16.3 L, [place] % (Auto) 9.9, Eos % (Auto) 0.6, Baso % (Auto) 0.4, Absolute Neuts (auto) 4.8, Nucleated RBC % 0 03/29/25 05:15: WBC 6.4, RBC 3.55 L, Hgb 11.5 L, Hct 33.9 L, MCV 95.5, MCH 32.4 H, MCHC 33.9, Plt Count 116 L, MPV 10.1, Immature Gran % (Auto) 0.500, Neut % (Auto) 69.8, Lymph % (Auto) 18.9 L, [place] % (Auto) 9.4, Eos % (Auto) 1.1, [...] IMPRESSION: Cardiomegaly with mild congestion. Reading Location: [facility] 03/29/25 1547 <Electronically signed by Jimi Flores MD> Cosigner Signature (if applicable): CC: Dr. Khushboo Dudley MD~ Signed ADDENDUM by Dr. Jimi Flores MD on 03/29/25 at 1548 Visit Charges Inpatient E&M: 49061 Init Hosp L3 03/29/25 1548<Electronically signed by Jimi Flores MD> Cosigner Signature (if applicable): cc: Dr. Khushboo Dudley MD ~* Signed [facility] Work Phone: 1(195) 802-333806-14-2025 Progress note Author Loren [facility] Note Date/Time March 29, 2025 1:56 pm [facility] Medical Records Department [address] [place] [address] Progress Note 03/29/25 1344 MR#: [id number] Acct: [id number] Name: GUMARO CARRASQUILLO Rep #:[id number] : 1955 70 From: Loren De Souza MD PCP: Dr. Khushboo Dudley MD Status:ADM IN Location: [place] [address] Subjective Subjective Patient seen and examined. She [...] 1.0, APTT 26.6, Sodium 140, Potassium 3.7, Rfcswyli001, Carbon Dioxide 22.0, Anion Gap 11, BUN [...] 72.2 H, Lymph % (Auto) 16.3 L, [place] % (Auto) 9.9, Eos % (Auto) 0.6, [...] (Auto) 69.8, Lymph % (Auto) 18.9 L, [place] % (Auto) 9.4, Eos % (Auto) 1.1, [...] IMPRESSION: Cardiomegaly with mild congestion. Reading Location: [facility] Echocardiogram 03/29/25 05:55 Interpretation Summary The [...] prophylaxis: lovenox Charges/Coding Visit Charges Inpatient E&M: 15218 Subs Hosp L2 03/29/25 1356 <Electronically signed by Loren De Souza MD> Loren De Souza MD Cosigner Signature (if applicable): CC: ~ Signed [facility] Work Phone: 1(808) 443-536806-14-2025 Consult note [facility] Medical Records Department [address] [place] [address] Consultation - Cardiology 03/29/25 1017 MR#: [id number] Acct: [id number] Name: GUMARO CARRASQUILLO Rep #:[id number] : 1955 70 From: Jimi Flores MD PCP: Dr. Khushboo Dudley MD Status:ADM IN Location: [place] [address] Assessment & Plan Assessment/Plan (1) CAD (coronary [...] troponins have been within normal limits. [facility] Medical History (Updated 03/28/25 @ 23:10 by [...] Reaction Status Date / Time cefaclor (From [facility]) Allergy Hives Verified 03/28/25 14:25 latex Allergy [...] 1.0, APTT 26.6, Sodium 140, Potassium 3.7, Tkotdedw059, Carbon Wsazjbx13.0, Anion Gap 11, BUN 13, Creatinine 0.89, [...] 72.2 H, Lymph % (Auto) 16.3 L, [place] % (Auto) 9.9, Eos % (Auto) 0.6, [...] (Auto) 69.8, Lymph % (Auto) 18.9 L, [place] % (Auto) 9.4, Eos % (Auto) 1.1, [...] 1.0, APTT 26.6, Sodium 140, Potassium 3.7, Qvxmsrey582, Carbon Epduarn90.0, Anion Gap 11, BUN 13, Creatinine 0.89, [...] (Auto) 72.2H, Lymph % (Auto) 16.3 L, [place] % (Auto) 9.9, Eos % (Auto) 0.6, Baso % (Auto) 0.4, Absolute Neuts (auto) 4.8, Nucleated RBC % 0 03/29/25 05:15: WBC 6.4, RBC 3.55 L, Hgb 11.5 L, Hct 33.9 L, MCV 95.5, MCH 32.4 H, MCHC 33.9, Plt Count 116 L, MPV 10.1, Immature Gran % (Auto) 0.500, Neut % (Auto) 69.8, Lymph % (Auto) 18.9 L, [place] % (Auto) 9.4, Eos % (Auto) 1.1, [...] IMPRESSION: Cardiomegaly with mild congestion. Reading Location: [facility] 03/29/25 1547 Cosigner Signature (if applicable): CC: Dr. Khushboo Dudley MD~ Signed ADDENDUM by Dr. Jimi Flores MD on 03/29/25 at 1548 Visit Charges Inpatient E&M: 20161 Init Hosp L3 03/29/25 1548 Cosigner Signature (if applicable): cc: Dr. Khushboo Dudley MD ~* Signed [facility]06-14-2025 Progress note [facility] Medical Records Department [address] [place] [address] Progress Note 03/29/25 1344 MR#: [id number] Acct: [id number] Name: GUMARO CARRASQUILLO Rep #:[id number] : 1955 70 From: Loren De Souza MD PCP: Dr. Khushboo Dudley MD Status:ADM IN Location: [place] [address] Subjective Subjective Patient seen and examined. She [...] 1.0, APTT 26.6, Sodium 140, Potassium 3.7, Adzqchlq345, Carbon Irkedbh05.0, Anion Gap 11, BUN 13, Creatinine 0.89, [...] 72.2 H, Lymph % (Auto) 16.3 L, [place] % (Auto) 9.9, Eos % (Auto) 0.6, [...] (Auto) 69.8, Lymph % (Auto) 18.9 L, [place] % (Auto) 9.4, Eos % (Auto) 1.1, [...] IMPRESSION: Cardiomegaly with mild congestion. Reading Location: [facility] Echocardiogram 03/29/25 05:55 Interpretation Summary The [...] prophylaxis: lovenox Charges/Coding Visit Charges Inpatient E&M: 65520 Subs Hosp L2 03/29/25 1706 Loren De Souza MD Cosigner Signature (if applicable): CC: ~ Signed [facility]06-14-2025 Discharge summary Author Davey Bosch [facility] Note Date/Time March 28, 2025 11:1 0pm [facility] Medical Records Department [address] [place] [address] Emergency Department Summary 03/28/25 MR#: [id number] Acct: [id number] Name: GUMARO CARRASQUILLO Rep #:[id number] : 1955 70 From: Davey Ross PCP: Dr. Khushboo Dudley MD Status:ADM IN Location: [place] [id number] 1 HPI History of Present Illness Chief [...] Reaction Status Date / Time cefaclor (From [facility]) Allergy Hives Verified 03/28/25 14:25 latex Allergy [...] EKGs in between. 1425: I spoke with coal hauler Dr. Flores. I discussed the finding states [...] Cardiology, hospitalist This note was generated with Vaxart dictation software. It may contain incorrectwords, spelling, [...] IMPRESSION: Cardiomegaly with mild congestion. Reading Location: [facility] Discharge Plan Dx/Rx/DC Orders Clinical Impression: Chest pain, Abnormal stress test, History of hypertension Disposition Disposition: Acute Care Hospital [facility] Discharge Date/Time: 03/28/25 18:19 What to do if you have Problems For any increased pain, shortness of breath, bleeding, nausea or vomiting, chestpain, or any unexpected problems, contact your Primary Care Provider. Call [facility] ([phone]) or report to the closest Emergency Room. Call 911 if necessary. 03/28/25 2310 <Electronically signed by Davey Ross> Cosigner Signature (if applicable): CC: Dr. Khushboo Dudley MD ~ Signed [facility] Work Phone: 1(630) 103-400006-13-2025 Discharge summary [facility] Medical Records Department [address] [place] [address] Emergency Department Summary 03/28/25 MR#: [id number] Acct: [id number] Name: GUMARO CARRASQUILLO Rep #:[id number] : 1955 70 From: Davey Ross PCP: Dr. Khushboo Dudley MD Status:ADM IN Location: [place] [address] HPI History of Present Illness Chief Complaint: [...] Reaction Status Date / Time cefaclor (From [facility]) Allergy Hives Verified 03/28/25 14:25 latex Allergy [...] EKGs in between. 1425: I spoke with coal hauler Dr. Flores. I discussed the finding states [...] Cardiology, hospitalist This note was generated with Vaxart dictation software. It may contain incorrectwords, spelling, [...] IMPRESSION: Cardiomegaly with mild congestion. Reading Location: [facility] Discharge Plan Dx/Rx/DC Orders Clinical Impression: Chest pain, Abnormal stress test, History of hypertension Disposition Disposition: Acute Care Hospital [facility] Discharge Date/Time: 03/28/25 18:19 What to do if you have Problems For any increased pain, shortness of breath, bleeding, nausea or vomiting, chestpain, or any unexpected problems, contact your Primary Care Provider. Call [facility] ([phone]) or report tothe closest Emergency Room. Call 911 if necessary. 03/28/25 2310 Cosigner Signature (if applicable): CC: Dr. Khushboo Dudley MD ~ Signed [facility]06-13-2025 History and physical note Author Loren [facility] Note Date/Time March 28, 2025 7:05 pm [facility] Medical Records Department [address] [place] [address] H&P Exam - Hospitalist 03/28/25 1733 MR#: [id number] Acct: [id number] Name: GUMARO CARRASQUILLO Rep #:[id number] : 1955 70 From: Loren De Souza MD PCP: Dr. Khushboo Dudley MD Status:ADM IN Location: [facility] [id number] HPI - General General Date of [...] on account of abnormal stress test. [facility] Medical History (Updated 03/28/25 @ 19:05 by [...] Reaction Status Date / Time cefaclor (From [facility]) Allergy Hives Verified 03/28/25 14:25 latex Allergy [...] 1.0, APTT 26.6, Sodium 140, Potassium 3.7, Cefonlam452, Carbon Dioxide 22.0, Anion Gap 11, BUN [...] 72.2 H, Lymph % (Auto) 16.3 L, [place] % (Auto) 9.9, Eos % (Auto) 0.6, Baso % (Auto) 0.4, Absolute Neuts (auto) 4.8, Absolute Lymphs (auto) 1.09, Nucleated RBC % 0 Imaging Radiology Impression Chest X-Ray 03/28/25 15:10 IMPRESSION: Cardiomegaly with mild congestion. Reading Location: [facility] Assessment & Plan Assessment/Plan (1) CAD [...] elects to be full code. * Total lyeo-oq-xlkt time 16 minutes. Charges/Coding Visit Charges Inpatient E&M: 36164 Init Hosp L2 Procedures Hospitalists Procedures: 19549 Advncd Care Plan 30 Min 03/28/251904 <Electronically signed by Loren De Souza MD> Cosigner Signature (if applicable): CC: Dr. Khushboo Dudley MD; Dr. Loren De Souza MD~ Signed [facility] Work Phone: 1(442) 929-188506-13-2025 Evaluation note* Diagnosis Onset Date Resolution Status Admit Date Abnormal stress test acute March 28, 2025 5:41pm CAD (coronary artery disease) acute March 28, 2025 5:41pm Chest pain acute March 28 5:41pm History of hypertension acute J 2024 5:41pm [facility] Work Phone: 1(712) 351-909906-13-2025 History and physical note [facility] Medical Records Department [address] [facility] [place] [address] H&P Exam - Hospitalist 03/28/25 8505 MR#: [id number] Acct: [id number] Name: GUMARO CARRASQUILLO Rep #:[id number] : 1955 70 From: Loren De Souza MD PCP: Dr. Khushboo Dudley MD Status:ADM IN Location: [place] [address] HPI - General General Date of Admission: [...] on account of abnormal stress test. [facility] Medical History (Updated 03/28/25 @ 19:05 by [...] Reaction Status Date / Time cefaclor (From [facility]) Allergy Hives Verified 03/28/25 14:25 latex Allergy [...] 1.0, APTT 26.6, Sodium 140, Potassium 3.7, Zcvrhbun800, Carbon Uzsnsog63.0, Anion Gap 11, BUN 13, Creatinine 0.89, [...] 72.2 H, Lymph % (Auto) 16.3 L, [place] % (Auto) 9.9, Eos % (Auto) 0.6, Baso % (Auto) 0.4, Absolute Neuts (auto) 4.8, Absolute Lymphs (auto) 1.09, Nucleated RBC % 0 Imaging Radiology Impression Chest X-Ray 03/28/25 15:10 IMPRESSION: Cardiomegaly with mild congestion. Reading Location: [facility] Assessment & Plan Assessment/Plan (1) CAD [...] elects to be full code. * Total xdku-gz-lkqb time 16 minutes. Charges/Coding Visit Charges Inpatient E&M: 34103 Init Hosp L2 Procedures Hospitalists Procedures: 04284 Advncd Care Plan 30 Min 03/28/25 1905 Cosigner Signature (if applicable): CC: Dr. Khushboo Dudley MD; Dr. Loren De Souza MD~ Signed [facility]06-13-2025 Radiology Diagnostic study note [facility] Imaging Services [address] [place] [address] Chest 1 View (Portable) MR#: [id number] Acct: [id number] Name: GUMARO CARRASQUILLO Rep #: [id number] : 1955 F 70 From: Debra Bosch MD PCP: Dr. Khushboo Dudley MD Status: REG ER Study:Chest 1 View (Portable) Date of Exam: 03/28/25 Exam# [id number] Ordering Dr: Davey Bosch DO EXAM: XR Chest, 1 View CLINICAL INDICATION: CHEST PAIN TECHNIQUE: Frontal view of the chest. COMPARISON: No relevant prior studies available. FINDINGS: LUNGS AND PLEURAL SPACES: See below. HEART: Cardiomegaly with mild congestion. MEDIASTINUM: Unremarkable. Normal mediastinal contour. BONES/JOINTS: Unremarkable. No acute fracture. RAD/Chest 1 View (Portable) IMPRESSION: Cardiomegaly with mild congestion. Reading Location: [facility] CC: Dr. Khushboo Dudley MD; Dr. Davey Bosch DO ~ Wire Spinner: Signed [facility]06-04-2025 Radiology Diagnostic study note [facility] Imaging Services [address] [place] [address] Breast Limited Unilateral MR#: [id number] Acct: [id number] Name: GUMARO CARRASQUILLO Rep #: [id number] : 1955 F 70 From: Zofia Banerjee MD PCP: Dr. Khsuhboo Dudley MD Status: REG CLI Study:Breast Limited Unilateral Date of Exam: 03/18/25 Exam# [id number] Ordering Dr: Scott Dudley MD PROCEDURE: BREAST [...] BENIGN. RECOMMEND ANNUAL MAMMOGRAPHIC SCREENING. Reading Location: [id number] CC: Dr. Khushboo Dudley MD ~ Wire Spinner: [facility] information available [facility] Work Phone: Evaluation note* Diagnosis Onset Date Resolution Status Encounter for screening for malignant neoplasm of colo n acute [facility] Work Phone: Reason for referral (narrative)No [facility] for [facility]: Family History No Family History [...] Will Yes August 09 7:00pm Power of Hyperbaric Welder Diver Yes August 09, 2021 7:00pm Advance Directive Response Recorded Date/ Time Name of Medical Power of Hyperbaric Welder Diver SPOUSE August 29, 2022 4:00pm Living Will Yes August 29, 022 4:00pm Power of Hyperbaric Welder Diver Yes August 29, 2022 4:00pm Advance Directive Response Recorded Date/ Time Living Will Yes August 29, 022 5:00pm Power of Hyperbaric Welder Diver Yes August 29, 2022 5:00pm Advance Directive Response Recorded Date/ Time Living Will Yes August 29, 022 4:00pm Power of Hyperbaric Welder Diver Yes August 29, 2022 4:00pm Advance Directive Response Recorded Date/ Time Do you have a Healthcare Power of Hyperbaric Welder Diver? Yes March 28, 2025 3:02pm Advance Directive Response Recorded Date/ Time Do you have a Healthcare Power of Hyperbaric Welder Diver? Yes March 28, 2025 6:38pm Chief Complaint [...] section and content) DATE CREATED AUTHOR 06/07/2025 [facility] FOR RECORDS PERTAINING TO PATIENTS WHO ARE [...] BE BASED ON THE PRIMARY CLINICAL RECORDS. [employer] provides no warranty or guarantee of the accuracy or completeness of information in this document.
== END | disposition home or self-care (01) ==
PROVIDERS: PCP Family Medicine; Referring Provider Emergency Medicine; Visit Provider Emergency Medicine
DX: R07.9 Chest pain, unspecified (principal)
CPT/HCPCS: 93225; 93226

== ENCOUNTER 2025-07-31 10:38 | Day surgery (SDC) | payer MEDICARE, OTHER, SELFPAY ==
[2025-07-31] VITALS (7 sets, daily range): BP systolic 116–153; BP diastolic 62–78; PULSE 63–83; RESP 16; TEMP 36.4–36.7; O2SAT 98–100; BMI 30.7
[2025-07-31] MEDS: Lactated Ringers 1,000 ML 15 ML IV (11:28)
== END 2025-07-31 14:03 | disposition home or self-care (01) ==
LOC: EN 10:39 → AC 10:41
PROVIDERS: PCP Family Medicine; Referring Provider Family Medicine; Visit Provider Internal Medicine Gastroenterology
PROC: 0DJD8ZZ Inspection of Lower Intestinal Tract, Via Natural or Artificial Opening Endoscopic (ICD-10-PCS; CPT 45378; principal; 2025-07-31 11:40)
DX: D12.0 Benign neoplasm of cecum (principal); K59.00 Constipation, unspecified; K44.9 Diaphragmatic hernia without obstruction or gangrene; Z87.891 Personal history of nicotine dependence; I10 Essential (primary) hypertension; E78.00 Pure hypercholesterolemia, unspecified; K29.50 Unspecified chronic gastritis without bleeding; K21.00 Gastro-esophageal reflux disease with esophagitis, without bleeding; Z79.899 Other long term (current) drug therapy; K57.30 Diverticulosis of large intestine without perforation or abscess without bleeding; E03.9 Hypothyroidism, unspecified; Z79.890 Hormone replacement therapy
CPT/HCPCS: 44361; 45380; 88305; 88342; J2405

== ENCOUNTER 2025-08-07 14:08 | Emergency (ER) | payer MEDICARE, OTHER, SELFPAY ==
[2025-08-07 14:09] VITALS: BP 143/88; PULSE 68; RESP 20; TEMP 36.1; O2SAT 98; BMI 31.2
[2025-08-07 14:42] VITALS: BP 143/69; BP 147/69; BP 147/76; PULSE 64; PULSE 67; PULSE 72
[2025-08-07 14:52] LABS: Hematocrit 41.7 % (37-47); Hemoglobin 14.3 g/dL (12.0-15.0); Immature Granulocytes Count 0.050 X10^3/uL (0.0-0.0); Mean Corp Hgb Conc 34.3 g/dL (32-36); Mean Corpuscular Volume 95.0 fL (81-99); Mean Platelet Vol. 10.8 fl (6.2-12.0); NRBC Flagged by Analyzer 0 % (0-5); Platelet Count 154 K/mm3 (150-450); RBC Distribution Width CV 12.5 % (11.6-14.6); RBC Distribution Width SD 43.8 fl (35.1-43.9); Red Blood Count 4.39 M/mm3 (4.2-5.4); White Blood Count 8.7 K/mm3 (4.4-11.0)
[2025-08-07] MEDS: 0.9% Normal Saline (1000mL) 1,000 ML 1000 ML IV (14:58)
[2025-08-07 15:05] LABS: Mucous, Urine 0 SEEN /hpf (<or=2+); Red Blood Cells-Urine 0 SEEN /hpf (0-5)
[2025-08-07 15:10] LABS: Color, Urine Yellow (Yellow); Glucose, Dipstick Normal (Normal); Ketone-Dipstick Negative (Negative); Leukocyte Esterase-Dipstick 500 /ul (Negative); Nitrite-Dipstick Negative (Negative); Occult Blood-Urine 10 /ul (Negative); Protein-Dipstick Negative (Negative); Specific Gravity, Urine 1.005 (1.002-1.030); Urine Bilirubin Dipstick Negative (Negative)
[2025-08-07 15:16] LABS: Squamous Epithelial Cells - UA 0-5 SEEN /hpf (5-10)
[2025-08-07 15:16] LABS: AST(SGOT) 39 U/L (<=31); Alanine Aminotransfer ALT/SGPT 71 U/L (<=34); Albumin, Serum 4.1 g/dL (3.4-4.8); Alkaline Phosphatase 84 U/L (35-104); Anion Gap 12 (5-15); BUN 9 mg/dL (4-19); BUN/Creat Ratio 9.7 RATIO (10-20); Calcium,Total 9.5 mg/dL (7.6-11.0); Carbon Dioxide 25.0 mmol/L (21.0-32.0); Chloride 102 mmol/L (98-108); Estimated Creatinine Clearance 58.51 ml/min (50-250); Globulin 3.5 g/dL (2.2-4.2); Glucose 155 mg/dL (70-99); Magnesium 2.2 mg/dL (1.5-2.2); Potassium 3.2 mmol/L (3.3-5.1)
[2025-08-07 15:45] VITALS: BP 147/76; PULSE 68; RESP 18; TEMP 36.1; O2SAT 99
[2025-08-07] MEDS: Potassium Chloride Oral Soln 20 MEQ/15 ML UDC 40 MEQ PO (15:47)
[2025-08-07 16:08] VITALS: BP 147/76; PULSE 68; RESP 18; O2SAT 97
== END 2025-08-07 16:26 | disposition home or self-care (01) ==
PROVIDERS: Emergency Provider Emergency Medicine; PCP Family Medicine; Visit Provider Emergency Medicine
DX: R00.2 Palpitations (principal); E87.6 Hypokalemia; I44.7 Left bundle-branch block, unspecified; E78.00 Pure hypercholesterolemia, unspecified; Z87.891 Personal history of nicotine dependence; I10 Essential (primary) hypertension; K21.9 Gastro-esophageal reflux disease without esophagitis
CPT/HCPCS: 71045; 80053; 81001; 83735; 85025; 93005; 96360; 99285; A4216

== ENCOUNTER → 2025-09-02 | Outpatient (CLI) | payer MEDICARE, OTHER, SELFPAY ==
[2025-09-02 15:56] LABS: Free T3 2.2 pg/mL (2.18-3.98)
== END | disposition home or self-care (01) ==
LOC: BFHLAB 11:07
PROVIDERS: PCP Family Medicine; Visit Provider Family Medicine
DX: E03.9 Hypothyroidism, unspecified (principal)
CPT/HCPCS: 36415; 84439; 84443; 84481